=== PATIENT | female | born 1940 | race Caucasian/White ===

== ENCOUNTER 2021-03-28 10:49 | Emergency (ER) | payer MEDICARE, SELFPAY ==
--- NOTE | ~2021-03-28 | XR_ITS ---
XR chest 2V 03/28/2021 11:23 Indication: Chest tightness. Numbness in fingers. Procedure: PA and lateral views of the chest Comparison: No prior studies for comparison. Findings: Heart size normal. Prominent right nipple shadow. The lungs are hyperinflated which is cons istent with, but not diagnostic of chronic obstructive pulmonary disease. There is bibasilar atelecta sis. No significant effusion. Biapical pleural thickening. There is right shoulder arthroplasty. Impression: 1: Bibasilar atelectasis. Reviewed, dictated and finalized at location A. Impression: 1: Bibasilar atelectasis.
[2021-03-28 10:59] VITALS: BP 177/75; PULSE 68; RESP 16; TEMP 36.7; O2SAT 100
--- NOTE | 2021-03-28 10:59 | ECG_ITS ---
Measurements Intervals [place] Rate: 66 P: 68 [place]: 140 QRS: 60 QRSD: 69 T: 54 QT: 405 QTc: 425 Interpretive Statements SINUS RHYTHM POSSIBLE LEFT ATRIAL ENLARGEMENT BASELINE ARTIFACT- V5 BORDERLINE ECG Electronically Signed On 03-28-2021 16:34:50 CDT by Javy Macias D.O.
--- NOTE | 2021-03-28 11:04 | ED.CHESTPAIN ---
HPI - Chest Pain General Chief Complaint: Chest Pain Stated Complaint: Chest tightness Time Seen by Provider: 03/28/21 11:04 History of Present Illness HPI narrative: 81 yo female presents to the ED for chest pain. She reports that she has had nearly continuous mild pressure under her left breast for about the past 2 weeks. This is associated with tingling in the bilateral hands. It is worse when sitting. No change with exertion. She reports that she has been under a lot of stress recently and feels that is the most likely reason for her pain. No SOB, weakness, fever, cough, confusion. Related Data Allergies Allergy/AdvReac Type Severity Reaction Status Date / Time No Known Allergies Allergy Verified 03/28/21 11:05 Review of Systems Review of Systems: All systems reviewed & are unremarkable except as noted in HPI and below Constitutional: Constitutional: Denies chills, Denies fever(s) and Denies weakness ENT: Reports system reviewed and no additional complaints, except as documented Cardiovascular: Cardiovascular: Reports chest pain Respiratory: Respiratory: Reports dyspnea Gastrointestinal: Gastrointestinal: Denies abdominal pain, Denies nausea and Denies vomiting Genitourinary: Genitourinary: Denies hematuria and Denies dysuria Neurologic: Denies confusion, Reports numbness and Denies weakness Psychiatric: Psychiatric: Reports anxiety [facility] [place] Past Medical History Medical History (Updated 03/28/21 @ 12:30 by Ra Zamudio MD) Hypothyroidism Social History Social History (Updated 03/28/21 @ 11:43 by Ra Zamudio MD) Living arrangements: assisted living Exam Const: General: healthy appearing, no acute distress and alert Nutritional Appearance: thin Orientation/consciousness: patient oriented x3 HENMT: Head: normal to inspection Neck: Neck: normal visual inspection Resp: Effort & Inspection: normal respiratory effort Auscultation: clear to auscultation bilaterally Cardio: Rate: regular rate Rhythm: regular rhythm GI: GI Palp: Yes Soft to palpation and No Tenderness to palpation present (GI) Skin: General skin exam: normal color Neuro: General: patient oriented x3, moves all extremities, no focal motor deficits and CN's II-XI intact bilaterally Speech: normal speech Gait exam (Neuro): Normal gait present Extrem: General: normal to inspection and no edema Psych: Appearance: well kempt Mental Status: mental status grossly normal Affect: Sad affect present Attitude: cooperative Course Vital Signs Vital signs: Vital Signs Temperature 36.7 C 03/28/21 10:59 Pulse Rate 68 03/28/21 10:59 Respiratory Rate 16 03/28/21 10:59 Blood Pressure 177/75 H 03/28/21 10:59 Pulse Oximetry 100 03/28/21 10:59 Temperature 36.7 C 03/28/21 10:59 Pulse Rate 86 03/28/21 12:47 Respiratory Rate 16 03/28/21 10:59 Blood Pressure 148/73 H 03/28/21 12:47 Pulse Oximetry 98 03/28/21 12:47 MDM - Chest Pain MDM Narrative Medical decision making narrative: Pain is atyipical. Improved with GI cocktail. Heart score 3. She plans to followup with PCP in the near future. Differential Diagnosis Differential diagnosis: Likely unstable angina pectoris, atypical chest pain, st elevation myocardial infarction, chest pain and other (GERD) Medical Records Data Attestation: I reviewed the patient's medical records. Lab Data Attestation: I reviewed the patient's lab results. Result diagrams: 03/28/21 11:06 03/28/21 11:06 Labs: Lab Results 03/28/21 03/28/21 03/28/21 Range/Units 11:06 11:06 11:06 WBC 5.2 (4.5-10.0) K/mm3 RBC 4.44 (4.2-5.4) M/mm3 Hgb 13.1 (12.0-15.0) g/dL Hct 39.5 (37.0-47.0) % MCV 89.0 (80-100) fl MCH 29.5 (26-34) pg MCHC 33.2 (32-36) g/dl RDW 12.8 (11.5-14.5) % Plt Count 222 (150-375) k/mm3 MPV 8.4 (7.4-10.4) fl Immature Gran % (Auto) 0.2 (0-0.5) % Neut % (Auto) 54.7
[2021-03-28 11:14] LABS: Basophils Percent Auto 0.8 % (0.2-1.2); Eosinophils Absolute Auto 0.1 K/mm3 (0-0.3); Eosinophils Percent Auto 1.5 % (0-4.4); Hematocrit 39.5 % (37.0-47.0); Hemoglobin 13.1 g/dL (12.0-15.0); Immature Granulocyte Absolute 0.01 K/mm3 (0.00-0.031); Immature Granulocyte Percent A 0.2 % (0-0.5); Lymphocytes Absolute Auto 1.55 K/mm3 (0.9-3.2); Mean Corpuscular HGB Conc 33.2 g/dl (32-36); Mean Corpuscular Hemoglobin 29.5 pg (26-34); Mean Platelet Volume 8.4 fl (7.4-10.4); Monocytes Absolute Auto 0.7 K/mm3 (0.1-0.6); Monocytes Percent Auto 12.8 % (2.6-8.5); Neutrophils Absolute Auto 2.8 K/mm3 (1.3-6.7); Neutrophils Percent Auto 54.7 % (45.5-73.1); Platelet Count Result 222 k/mm3 (150-375); Red Blood Count 4.44 M/mm3 (4.2-5.4); Red Cell Distribution Width 12.8 % (11.5-14.5); White Blood Count 5.2 K/mm3 (4.5-10.0)
[2021-03-28] MEDS: ASPIRIN 81 MG CHEWABLE TABLET 324 MG PO (11:15)
[2021-03-28 11:24] LABS: Anion Gap 5 mmol/L (8-16); Blood Urea Nitrogen 8 mg/dL (7-17); Calcium 9.4 mg/dL (8.4-10.2); Carbon Dioxide 30 mmol/L (22-30); Chloride 95 mmol/L (98-107); Estimated CRCL calculation 44 ml/min; Estimated Glomerular Filt Rate > 60; Glucose 105 mg/dL (65-105); Potassium 4.1 mmol/L (3.4-5.0); Sodium 130 mmol/L (137-145)
[2021-03-28 11:26] LABS: INR 0.9; Prothrombin Time 12.3 Seconds (11.1-14.7)
[2021-03-28 11:36] LABS: Troponin I < 0.012 ng/mL (0.000-0.034)
[2021-03-28] MEDS: SODIUM CHLORIDE 0.9% IV 500 ML 999 ML IV CONT (11:42)
[2021-03-28 12:00] VITALS: BP 158/68; PULSE 69; O2SAT 98
[2021-03-28 12:47] VITALS: BP 148/73; PULSE 86; O2SAT 98
== END 2021-03-28 12:48 | disposition home or self-care (01) ==
PROVIDERS: Emergency Provider Emergency Medicine
DX: R07.89 Other chest pain (principal); E03.9 Hypothyroidism, unspecified; R94.31 Abnormal electrocardiogram [ECG] [EKG]; R91.8 Other nonspecific abnormal finding of lung field
CPT/HCPCS: 36415; 71046; 80048; 84484; 85025; 85610; 85730; 93005; 96360; 99284; A9270; J7040

== ENCOUNTER 2021-04-20 11:57 | Emergency (ER) | payer MEDICARE, SELFPAY ==
--- NOTE | ~2021-04-20 | CT_ITS ---
EXAMINATION: CT brain wo con EXAM DATE: 04/20/2021 13:28 INDICATION: Generalized Headache, HTN. TECHNIQUE: Spiral CT of the head was performed without contrast. Axial, coronal and sagittal images were reviewed. The dose-length product (DLP) for this examination was 605.33 mGy-cm. The exposure w as tailored according to patient size, and iterative reconstruction (ASIR) was used as additional dos e reduction technique. There is no prior study for comparison. FINDINGS: There is no acute intraparenchymal hemorrhage. No evidence of intraparenchymal brain mass lesion. No evidence of acute infarction. Please note that initial head CT has limited sensitivity f or small or acute infarctions. There is mild periventricular and subcortical hypodensity, nonspecific but probably related to small vessel ischemic disease. There is mild prominence of the sulci and v entricles related to cerebral atrophy. There is intracranial carotid arteriosclerosis. There are n o extra-axial collections. There is no mass effect or midline shift. Patient has had bilateral ocul ar lens surgery. Soft tissue is unremarkable. The visualized sinuses and mastoid air cells are well aerated. IMPRESSION: 1. No acute intracranial findings. 2. Chronic age related findings. Reviewed, dictated and finalized at location B.
[2021-04-20 12:02] VITALS: BP 178/87; PULSE 79; RESP 18; TEMP 36.6; O2SAT 98
--- NOTE | 2021-04-20 12:47 | ECG_ITS ---
Measurements Intervals [place] Rate: 64 P: 65 [place]: 151 QRS: 54 QRSD: 74 T: 55 QT: 415 QTc: 430 Interpretive Statements SINUS RHYTHM INCOMPLETE RIGHT BUNDLE BRANCH BLOCK BASELINE ARTIFACT- I, III, AVR, AVL BORDERLINE ECG Electronically Signed On 04-20-2021 13:26:14 CDT by Javy Macias D.O.
--- NOTE | 2021-04-20 12:47 | ED.GENADULT ---
HPI - General Adult General Chief complaint: Unspecified Stated complaint: multiple sx Time Seen by Provider: 04/20/21 12:10 Source: patient Mode of arrival: ambulatory Limitations: no limitations History of Present Illness HPI narrative: Patient is an 81-year-old female complaining of elevated blood pressure at home, 180s over 90s, accompanied by a mild frontal headache that started today. Patient states that she called her PCP for an appointment but was told to go to the emergency room. Patient denies any speech or visual disturbance, focal weakness or numbness, unsteady gait, chest pain, shortness of breath, abdominal pain, nausea, vomiting, fever or chills. Related Data Allergies Allergy/AdvReac Type Severity Reaction Status Date / Time No Known Allergies Allergy Verified 04/20/21 12:09 Review of Systems Review of Systems: All systems reviewed & are unremarkable except as noted in HPI and below Constitutional: Constitutional: Denies body ache(s), Denies chills, Denies excessive sweating, Denies fatigue, Denies fever(s), Denies headache(s), Denies lethargy, Denies malaise, Denies weakness and Denies weight loss Eyes: Eyes: Denies blurry vision, Denies change in vision and Denies loss of vision ENT: Denies dizziness, Denies ear discharge, Denies headache(s), Denies lip swelling, Denies epistaxis, Denies nasal congestion, Denies neck pain, Denies throat swelling and Denies tongue swelling Cardiovascular: Cardiovascular: Denies chest pain, Denies chest pain at rest, Denies chest pain with activity, Denies diaphoresis, Denies rapid heart rate, Denies edema, Denies irregular heart rhythm, Denies lightheadedness, Denies palpitations, Denies dyspnea and Denies dyspnea on exertion Respiratory: Respiratory: Denies chest congestion, Denies cough, Denies hemoptysis, Denies dyspnea and Denies dyspnea on exertion Gastrointestinal: Gastrointestinal: Denies abdominal pain, Denies melena, Denies hematochezia, Denies diarrhea, Denies nausea, Denies vomiting and Denies hematemesis Musculoskeletal: Musculoskeletal: Denies abnormal gait, Denies deformity, Denies joint swelling, Denies limited range of motion, Denies neck pain and Denies numbness Neurologic: Denies Abnormal speech present, Denies abnormal gait, Denies confusion, Denies dizziness, Denies focal weakness, Denies loss of vision, Denies numbness, Denies Other visual disturbances, Denies Sensory deficit (Neuro) and Denies weakness Psychiatric: Psychiatric: Denies confusion, Denies depression, Denies auditory hallucinations, Denies homicidal ideation and Denies suicidal ideation Endocrine: Endocrine: Denies cold intolerance, Denies excessive sweating, Denies fatigue, Denies heat intolerance and Denies palpitations Hematologic/Lymphatic: Hematologic/Lymphatic: Denies easy bleeding and Denies easy bruising Allergic/Immunologic: Allergic/Immunologic: Denies lip swelling, Denies throat swelling and Denies tongue swelling [facility] Past Medical History Medical History (Updated 04/20/21 @ 14:08 by João Haider MD) Hypothyroidism Comments Past medical history: Hyperlipidemia, no history of hypertension Family history: Diabetes and hypertension Social history: Non-smoker no EtOH use, lives at home Exam Const: General: cooperative, healthy appearing, comfortable, no acute distress, well developed, alert and awake; No confusion Orientation/consciousness: oriented to person, oriented to place, oriented to time, patient oriented x3 and No confusion Limitations: no limitations HENMT: Head: normal to inspection, normocephalic and atraumatic Ears: hearing grossly normal bilaterally, TM normal on the right and TM normal on the left General nose exam: Normal external nose present, Normal nares present and No nasal discharge present Face and sinus: normal facial exam Mouth: Yes Normal oral and palatal mucosa present, Yes lip normal, Yes tongue normal and Yes oropharynx normal Throat: posteri
[2021-04-20 13:19] LABS: Basophils Percent Auto 0.6 % (0.2-1.2); Eosinophils Percent Auto 0.2 % (0-4.4); Hematocrit 35.1 % (37.0-47.0); Hemoglobin 11.9 g/dL (12.0-15.0); Immature Granulocyte Absolute 0.02 K/mm3 (0.00-0.031); Immature Granulocyte Percent A 0.4 % (0-0.5); Lymphocytes Absolute Auto 0.92 K/mm3 (0.9-3.2); Lymphocytes Percent Auto 18.9 % (18.3-44.2); Mean Corpuscular HGB Conc 33.9 g/dl (32-36); Mean Corpuscular Hemoglobin 29.7 pg (26-34); Mean Corpuscular Volume 87.5 fl (80-100); Mean Platelet Volume 7.9 fl (7.4-10.4); Monocytes Absolute Auto 0.5 K/mm3 (0.1-0.6); Monocytes Percent Auto 10.1 % (2.6-8.5); Neutrophils Absolute Auto 3.4 K/mm3 (1.3-6.7); Neutrophils Percent Auto 69.8 % (45.5-73.1); Platelet Count Result 218 k/mm3 (150-375); Red Blood Count 4.01 M/mm3 (4.2-5.4); Red Cell Distribution Width 12.8 % (11.5-14.5); White Blood Count 4.9 K/mm3 (4.5-10.0)
[2021-04-20 13:29] LABS: Alanine Aminotransferase 20 U/L (4-35); Albumin Level 3.9 g/dL (3.5-5.1); Alkaline Phosphatase 50 U/L (38-126); Anion Gap 8 mmol/L (8-16); Aspartate Amino Transferase 36 U/L (14-36); Bilirubin,Total 0.8 mg/dL (0.2-1.3); Blood Urea Nitrogen 7 mg/dL (7-17); Calcium 9.3 mg/dL (8.4-10.2); Carbon Dioxide 28 mmol/L (22-30); Chloride 93 mmol/L (98-107); Estimated CRCL calculation 51 ml/min; Estimated Glomerular Filt Rate > 60; Glucose 132 mg/dL (65-105); Potassium 3.9 mmol/L (3.4-5.0); Sodium 129 mmol/L (137-145)
[2021-04-20 13:34] VITALS: BP 154/74; PULSE 62; RESP 19; O2SAT 99
[2021-04-20 13:43] LABS: Troponin I < 0.012 ng/mL (0.000-0.034)
[2021-04-20 14:21] VITALS: BP 149/75; PULSE 69; RESP 16; O2SAT 100
== END 2021-04-20 14:24 | disposition home or self-care (01) ==
PROVIDERS: Emergency Provider Emergency Medicine; PCP Family Medicine
DX: R51.9 Headache, unspecified (principal); R03.0 Elevated blood-pressure reading, without diagnosis of hypertension; E03.9 Hypothyroidism, unspecified
CPT/HCPCS: 36415; 70450; 80053; 84484; 85025; 93005; 99284

== ENCOUNTER 2021-04-25 23:51 | Emergency (ER) | payer MEDICARE, SELFPAY ==
[2021-04-25 23:53] VITALS: BP 150/88; PULSE 81; RESP 16; TEMP 36.6; O2SAT 99
--- NOTE | 2021-04-25 23:56 | PC.NURSE ---
pt states maybe i dont have to be here. my blood pressure is going down. this rn explains to pt that she is welcome to be seen by a physician for her symptoms. pt seems unsure, denies getting any blood drawn at this time. pt sitting in WR at this time on the phone. states she will let me know if she decides to leave.
--- NOTE | 2021-04-26 00:20 | PC.NURSE ---
pt requests repeat vitals. bp 145/79, 75HR, 99% on RA. pt states she no longer wants to be seen by a doctor. pt instructed on risks of leaving, instructed if she has worsening symptoms that she can always come back to be seen. pt mbulated out of facility w/ no difficulties.
== END 2021-04-26 00:20 | disposition left against medical advice (07) ==
PROVIDERS: PCP Family Medicine
DX: I10 Essential (primary) hypertension (principal)
CPT/HCPCS: 99199

== ENCOUNTER 2021-05-11 15:19 | Outpatient (CLI) | payer MEDICARE, SELFPAY ==
[2021-05-11 15:57] LABS: Anion Gap 6 mmol/L (8-16); Blood Urea Nitrogen 9 mg/dL (7-17); Calcium 9.6 mg/dL (8.4-10.2); Carbon Dioxide 30 mmol/L (22-30); Chloride 94 mmol/L (98-107); Estimated Glomerular Filt Rate > 60; Glucose 98 mg/dL (65-105); Potassium 4.2 mmol/L (3.4-5.0); Sodium 130 mmol/L (137-145)
== END 2021-05-11 15:20 | disposition home or self-care (01) ==
PROVIDERS: PCP Family Medicine; Visit Provider Family Medicine
DX: E87.1 Hypo-osmolality and hyponatremia (principal)
CPT/HCPCS: 36415; 80048

== ENCOUNTER → 2021-06-24 08:13 | Outpatient (CLI) | payer MEDICARE, SELFPAY ==
--- NOTE | ~2021-06-24 | CT_ITS ---
EXAMINATION: CT soft tissue neck w con DATE: 06/24/2021 08:40 INDICATION: Chronic sore throat. Facial pain and swelling. TECHNIQUE: Computed tomography (CT) of the neck was performed with 75 mL Omnipaque-350 intravenous co ntrast. Automated exposure control and iterative reconstruction technique were employed. The dose-kelly gth product was 329.15 mGy-cm. COMPARISON: None FINDINGS: There is symmetric scarring at the lung apices. There are likely changes of ocular lens rep lacement surgeries. There are no pathologically enlarged lymph nodes. There is mild plaque in proxima l right internal carotid artery with 0% stenosis relative to normal distal artery lumen diameter. The pharyngeal mucosal space and larynx are unremarkable. There is severe cervical spondylosis. There ar e periapical lucencies around bilateral maxillary teeth. There is mild mucosal thickening in the para nasal sinuses. IMPRESSION: 1. Dental disease. Reviewed, dictated and finalized at location A. IMPRESSION: 1. Dental disease.
[2021-06-24 08:30] LABS: Estimated Glomerular Filt Rate > 60
== END ==
PROVIDERS: PCP Family Medicine; Visit Provider Otolaryngology
DX: J31.2 Chronic pharyngitis (principal); K08.9 Disorder of teeth and supporting structures, unspecified
CPT/HCPCS: 70491; Q9967

== ENCOUNTER 2022-01-14 10:48 | Emergency (ER) | payer MEDICARE, SELFPAY ==
--- NOTE | ~2022-01-14 | XR_ITS ---
XR chest 2V 01/14/2022 11:14 Indication: Chest pain Procedure: 2 view chest Comparison: 03/28/2021 Findings: Heart size is normal. There is biapical pleural thickening/scarring. There is posterior bib asilar atelectasis/scarring. The lungs are hyperinflated which is consistent with, but not diagnostic of chronic obstructive pulmonary disease. No focal pneumonia or pneumothorax. Impression: 1: Apical and bibasilar atelectasis/scarring. No significant interval change. Reviewed, dictated and finalized at location B. 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 No significant interval change.
[2022-01-14 10:52] VITALS: BP 162/75; PULSE 89; RESP 25; TEMP 36.6; O2SAT 95
--- NOTE | 2022-01-14 11:03 | ECG_ITS ---
Measurements Intervals [place] Rate: 86 P: 80 [place]: 139 QRS: 64 QRSD: 78 T: 66 QT: 356 QTc: 426 Interpretive Statements SINUS RHYTHM POSSIBLE LEFT ATRIAL ENLARGEMENT BASELINE ARTIFACT- I, II, III, AVR, AVL, AVF, V3-V6 BORDERLINE ECG Electronically Signed On 01-14-2022 14:40:41 [employer] by Javy Macias D.O.
[2022-01-14 11:17] LABS: Basophils Percent Auto 0.7 % (0.2-1.2); Eosinophils Percent Auto 0.7 % (0-4.4); Hematocrit 39.3 % (37.0-47.0); Immature Granulocyte Absolute 0.01 K/mm3 (0.00-0.031); Immature Granulocyte Percent A 0.2 % (0-0.5); Lymphocytes Percent Auto 18.6 % (18.3-44.2); Mean Corpuscular HGB Conc 33.1 g/dl (32-36); Mean Corpuscular Hemoglobin 30.2 pg (26-34); Mean Corpuscular Volume 91.2 fl (80-100); Mean Platelet Volume 8.1 fl (7.4-10.4); Monocytes Absolute Auto 0.5 K/mm3 (0.1-0.6); Monocytes Percent Auto 8.3 % (2.6-8.5); Neutrophils Absolute Auto 4.2 K/mm3 (1.3-6.7); Neutrophils Percent Auto 71.5 % (45.5-73.1); Platelet Count Result 225 k/mm3 (150-375); Red Blood Count 4.31 M/mm3 (4.2-5.4); Red Cell Distribution Width 13.2 % (11.5-14.5); White Blood Count 5.9 K/mm3 (4.5-10.0)
[2022-01-14] MEDS: ASPIRIN 81 MG CHEWABLE TABLET 324 MG PO (11:21)
--- NOTE | 2022-01-14 11:29 | ED.CHESTPAIN ---
HPI - Chest Pain General Chief Complaint: Chest Pain Stated Complaint: chest pain Time Seen by Provider: 01/14/22 10:53 Source: patient and RN notes reviewed Mode of arrival: ambulatory Limitations: other (poor historian) History of Present Illness HPI narrative: This is an 81 year old female who presents for evaluation of chest tightness. Patient has been having constant midsternal chest tightness since yesterday. She denies associated shortness of breath, cough or fever. She is complaining of nausea after taking aspirin in ER. She denies diarrhea. She told saff she is having jaw pain but she states this jaw pain has been present constantly for 2 months without exacerbating factors. She denies any exacerbating factors for her chest pain as well. She was given aspirin 324 mg PO in ER as part of chest pain protocol. Related Data Allergies Allergy/AdvReac Type Severity Reaction Status Date / Time No Known Allergies Allergy Verified 01/14/22 10:56 Review of Systems Review of Systems: All systems reviewed & are unremarkable except as noted in HPI and below Neurologic: Reports numbness (chronic paresthesia in fingers for months) [facility] Past Medical History Medical History (Updated 01/14/22 @ 15:13 by Samantha Larios MD) Hypothyroidism Social History Social History (Updated 01/14/22 @ 11:33 by Samantha Larios MD) Smoking status: Never smoker Alcohol intake: never Substance use: never Exam Narrative: GENERAL: Well-appearing, well-nourished, and in no acute distress. HEAD: Normocephalic, atraumatic EYES: PERRLA and EOMI, conjunctiva clear without discharge THROAT:Mucous membranes moist, Oropharynx normal without erythema, exudate, peritonsillar swelling or fluctuance NECK: Supple, without lymphadenopathy or mass RESPIRATORY: No respiratory distress, Airway patent, Respirations non-labored, Clear to auscultation without rales, rhonchi or wheeze HEART: Regular rate and rhythm. No murmur heard. Normal peripheral pulses. ABDOMEN: Soft, nontender, nondistended, normal active bowel sounds. No masses. No rebound or guarding, No organomegaly. EXTREMITIES: No edema, normal strength with full range of motion. SKIN: Warm, dry, normal color without rash NEURO: Alert and oriented x3. CN 2-12 grossly intact. No focal deficits. PSYCH: Normal mood and affect. Course Reevaluation(s) Reevaluation #1: Patient states her chest pain has resolved. Her EKG is borderline, no significant changes. SHe is heart score 3-4. I discussed with patient observation or discharge. PAtient does not want to be admitted. I spoke with Sayra Urrutia on for heart care group. She agrees patient can follow up as outpatient for stress test. I discussed with patient return precautions. She has follow up with PCP on . Date: 01/14/22 Time: 15:07 Vital Signs Vital signs: Vital Signs Temperature 97.9 F 01/14/22 10:52 Pulse Rate 89 01/14/22 10:52 Respiratory Rate 25 H 01/14/22 10:52 Blood Pressure 162/75 H 01/14/22 10:52 Pulse Oximetry 95 01/14/22 10:52 Temperature 97.9 F 01/14/22 10:52 Pulse Rate 66 01/14/22 15:21 Respiratory Rate 18 01/14/22 15:21 Blood Pressure 141/73 H 01/14/22 15:21 Pulse Oximetry 100 01/14/22 15:21 MDM - Chest Pain Lab Data Attestation: I reviewed the patient's lab results. Result diagrams: 01/14/22 11:06 01/14/22 11:32 Labs: Lab Results 01/14/22 01/14/22 01/14/22 Range/Units 11:06 11:06 11:06 WBC 5.9 (4.5-10.0) K/mm3 RBC 4.31 (4.2-5.4) M/mm3 Hgb 13.0 (12.0-15.0) g/dL Hct 39.3 (37.0-47.0) % MCV 91.2 (80-100) fl MCH 30.2 (26-34) pg MCHC 33.1 (32-36) g/dl RDW 13.2 (11.5-14.5) % Plt Count 225 (150-375) k/mm3 MPV 8.1 (7.4-10.4) fl Immature Gran % (Auto) 0.2 (0-0.5) % Neut % (Auto) 71.5 (45.5-73.1) % Lymph % (Auto) 18.6 (18.3-44.2) % Walsh % (Auto) 8.3 (2.6-8
[2022-01-14 11:39] LABS: INR 0.9; Prothrombin Time 11.8 Seconds (11.1-14.7)
[2022-01-14 11:40] LABS: Partial Thromboplastin Time 26.9 SECONDS (22.3-36.8)
[2022-01-14 12:13] LABS: Alanine Aminotransferase 18 U/L (4-35); Albumin Level 4.1 g/dL (3.5-5.1); Alkaline Phosphatase 55 U/L (38-126); Anion Gap 7 mmol/L (8-16); Aspartate Amino Transferase 29 U/L (14-36); Bilirubin,Total 1.2 mg/dL (0.2-1.3); Blood Urea Nitrogen 14 mg/dL (7-17); Calcium 9.3 mg/dL (8.4-10.2); Carbon Dioxide 29 mmol/L (22-30); Chloride 95 mmol/L (98-107); Estimated CRCL calculation 47 ml/min; Estimated Glomerular Filt Rate > 60; Glucose 155 mg/dL (65-110); Lipase 106 U/L (23-300); Potassium 4.1 mmol/L (3.4-5.0); Sodium 131 mmol/L (137-145)
[2022-01-14 12:24] LABS: Troponin I < 0.012 ng/mL (0.000-0.034)
[2022-01-14 12:28] VITALS: BP 148/70; PULSE 68; RESP 18; O2SAT 100
[2022-01-14 13:47] LABS: D Dimer < 0.22 ug/mL (<0.48)
[2022-01-14 14:01] VITALS: BP 147/87; PULSE 74; RESP 16; O2SAT 100
[2022-01-14] MEDS: NITROGLYCERIN SL 0.4 MG TABLET SUBLINGUAL (14:05)
[2022-01-14 14:09] LABS: Troponin I < 0.012 ng/mL (0.000-0.034)
[2022-01-14 15:21] VITALS: BP 141/73; PULSE 66; RESP 18; O2SAT 100
== END 2022-01-14 15:33 | disposition home or self-care (01) ==
PROVIDERS: Emergency Provider General Practice; PCP Family Medicine
DX: R07.89 Other chest pain (principal); E03.9 Hypothyroidism, unspecified; R94.31 Abnormal electrocardiogram [ECG] [EKG]
CPT/HCPCS: 36415; 71046; 80053; 83690; 84484; 85025; 85380; 85610; 85730; 93005; 99284; A9270

== ENCOUNTER 2022-02-11 08:29 | Outpatient (CLI) | payer MEDICARE, SELFPAY ==
[2022-02-11 09:05] LABS: Anion Gap 3 mmol/L (8-16); Blood Urea Nitrogen 10 mg/dL (7-17); Calcium 8.8 mg/dL (8.4-10.2); Carbon Dioxide 33 mmol/L (22-30); Chloride 96 mmol/L (98-107); Estimated Glomerular Filt Rate > 60; Glucose 96 mg/dL (65-110); Potassium 4.4 mmol/L (3.4-5.0); Sodium 132 mmol/L (137-145)
== END 2022-02-11 08:30 | disposition home or self-care (01) ==
PROVIDERS: PCP Family Medicine; Visit Provider Family Medicine
DX: R79.89 Other specified abnormal findings of blood chemistry (principal)
CPT/HCPCS: 36415; 80048

== ENCOUNTER → 2022-06-07 12:47 | Outpatient (CLI) | payer MEDICARE, SELFPAY ==
--- NOTE | ~2022-06-07 | US_ITS ---
EXAMINATION: US pelvic complete w TV DATE: 06/07/2022 13:13 INDICATION: Pelvic bloating Comparison:No prior studies for comparison. TECHNIQUE: Multiple transabdominal and endovaginal sonographic images of the pelvis performed. FINDINGS: The uterus and ovaries are not visualized, consistent with prior hysterectomy. No abnormal masses or fluid collections. There is no free fluid in the pelvis. There are no abnormal masses seen on either side. IMPRESSION: 1. Unremarkable pelvic ultrasound post hysterectomy. Reviewed, dictated and finalized at location A.
== END ==
PROVIDERS: PCP Internal Medicine; Visit Provider Internal Medicine
DX: R14.0 Abdominal distension (gaseous) (principal)
CPT/HCPCS: 76830; 76856

== ENCOUNTER 2022-07-20 07:17 | Outpatient (CLI) | payer MEDICARE, SELFPAY ==
[2022-07-20 08:11] LABS: Alanine Aminotransferase 17 U/L (6-35); Albumin Level 4.3 g/dL (3.5-5.1); Alkaline Phosphatase 56 U/L (38-126); Anion Gap 1 mmol/L (8-16); Aspartate Amino Transferase 31 U/L (14-36); Bilirubin,Total 1.1 mg/dL (0.2-1.3); Blood Urea Nitrogen 10 mg/dL (7-17); Calcium 8.7 mg/dL (8.4-10.2); Carbon Dioxide 31 mmol/L (22-30); Chloride 96 mmol/L (98-107); Cholesterol 187 mg/dL (0-200); Estimated Glomerular Filt Rate > 60; Glucose 96 mg/dL (65-110); HDL Direct 83 mg/dL; Potassium 4.4 mmol/L (3.4-5.0); Sodium 128 mmol/L (137-145); Triglycerides 76 mg/dL (<150)
[2022-07-20 08:17] LABS: Basophils Percent Auto 0.9 % (0.2-1.2); Eosinophils Absolute Auto 0.1 K/mm3 (0-0.3); Eosinophils Percent Auto 1.7 % (0-4.4); Hematocrit 38.7 % (37.0-47.0); Hemoglobin 12.7 g/dL (12.0-15.0); Immature Granulocyte Absolute 0.01 K/mm3 (0.00-0.031); Immature Granulocyte Percent A 0.3 % (0-0.5); Lymphocytes Absolute Auto 1.06 K/mm3 (0.9-3.2); Lymphocytes Percent Auto 30.1 % (18.3-44.2); Mean Corpuscular HGB Conc 32.8 g/dl (32-36); Mean Corpuscular Hemoglobin 29.6 pg (26-34); Mean Corpuscular Volume 90.2 fl (80-100); Mean Platelet Volume 8.1 fl (7.4-10.4); Monocytes Absolute Auto 0.4 K/mm3 (0.1-0.6); Monocytes Percent Auto 11.9 % (2.6-8.5); Neutrophils Absolute Auto 1.9 K/mm3 (1.3-6.7); Neutrophils Percent Auto 55.1 % (45.5-73.1); Platelet Count Result 238 k/mm3 (150-375); Red Blood Count 4.29 M/mm3 (4.2-5.4); Red Cell Distribution Width 13.2 % (11.5-14.5); White Blood Count 3.5 K/mm3 (4.5-10.0)
[2022-07-20 08:22] LABS: LDL Cholesterol Direct 65 mg/dL
[2022-07-20 09:30] LABS: Erythrocyte Sedimentation Rate 12 mm/hr (0-20)
== END 2022-07-20 07:18 | disposition home or self-care (01) ==
PROVIDERS: PCP Internal Medicine; Referring Provider Internal Medicine; Visit Provider Internal Medicine
DX: E78.5 Hyperlipidemia, unspecified (principal); E03.9 Hypothyroidism, unspecified; R53.82 Chronic fatigue, unspecified; R51.9 Headache, unspecified
CPT/HCPCS: 36415; 80053; 80061; 84443; 85025; 85652

== ENCOUNTER 2022-07-22 09:43 | Outpatient (CLI) | payer MEDICARE, SELFPAY ==
--- NOTE | ~2022-07-22 | CT_ITS ---
EXAMINATION: CT brain wo con DATE: 07/22/2022 10:12 INDICATION: Fall. Headache. Facial injury. TECHNIQUE: Computed tomography (CT) of the head was performed without intravenous contrast. The mA wa s adjusted according to patient size. Iterative reconstruction technique was employed. Exam dose: 60 5.33 mGy-cm total exam DLP. COMPARISON: None FINDINGS: Bilateral vertebral artery and carotid siphon internal carotid artery calcifications. There is nonspecific diminished attenuation of the cerebral white matter, likely due to chronic small vess el ischemic changes. No intracranial mass lesion or hemorrhage or cerebrovascular accident is detected. No midline shift o r mass effect effect. No subdural or epidural hematoma. No fracture or bone destruction of the cranial vault. The mastoid air cells and included paranasal si nuses are normally developed and aerated. IMPRESSION: Cerebral atherosclerosis and chronic small vessel ischemic changes of the cerebral white matter No acute intracranial finding or skull fracture Reviewed, dictated and finalized at Location A. Reviewed, dictated and finalized at location B.
--- NOTE | ~2022-07-22 | CT_ITS ---
EXAMINATION: CT facial bones wo con DATE: 07/22/2022 10:12 INDICATION: Fall. Facial injury. TECHNIQUE: Computed tomography (CT) of the facial bones and maxillofacial region was performed withou t intravenous contrast. Automated exposure control and iterative reconstruction technique were employ ed. Exam dose: 274.28 mGy-cm total exam DLP. COMPARISON: None. FINDINGS: The nasal bones, anterior maxillary spine, frontozygomatic sutures, orbital rims and garcia, zygomatic arches and maxillary bones are intact. Small mucus retention cyst along the lower medial wall of the right maxillary sinus. The paranasal si nuses and mastoid air cells are otherwise unremarkable. Degenerative change at the right temporomandibular joint. No mandibular fracture or dislocation or parker ne destruction. IMPRESSION: No facial fracture Reviewed, dictated and finalized at Location A. EXAMINATION: CT facial bones wo con Reviewed, dictated and finalized at location B. IMPRESSION: No facial fracture
== END 2022-07-22 09:44 | disposition home or self-care (01) ==
LOC: ANHIMG 09:46
PROVIDERS: PCP Internal Medicine; Visit Provider Internal Medicine
DX: S09.93XA Unspecified injury of face, initial encounter (principal); X58.XXXA Exposure to other specified factors, initial encounter; R51.9 Headache, unspecified; I67.2 Cerebral atherosclerosis
CPT/HCPCS: 70450; 70486

== ENCOUNTER 2022-07-27 07:14 | Outpatient (CLI) | payer MEDICARE, SELFPAY ==
--- NOTE | ~2022-07-27 | US_ITS ---
EXAMINATION: US carotid duplex BI DATE: 07/27/2022 08:38 INDICATION: Carotid atherosclerosis. TECHNIQUE: Grayscale, color Doppler, and pulsed Doppler images of the cervical carotid arteries were obtained. The degree of vessel stenosis is placed in one of the following categories: normal, <50%, 5 0-69%, >=70% but less than near-occlusion, near-occlusion, or total occlusion. Note that percent sten osis relative to normal distal artery lumen diameter is indirectly measured from velocity measurement s as described by Ra, et al. Radiology 2003; 229:340-346. COMPARISON: None. FINDINGS: RIGHT: The right common carotid artery (CCA) peak systolic velocity (PSV) is 64 cm/s. The right internal car otid artery (ICA) PSV is 55 cm/s. The right ICA end-diastolic velocity (EDV) is 14 cm/s. The right IC A/CCA PSV ratio is 1.4. Grayscale and color Doppler images yield an estimate of <50% diameter reducti on from plaque in the ICA. The external carotid artery (ECA) PSV is 53 cm/s. There is antegrade flow in the right vertebral artery. LEFT: The left CCA PSV is 96 cm/s. The left ICA PSV is 64 cm/s. The left ICA EDV is 16 cm/s. The left ICA/C CA PSV ratio is 0.9. Grayscale and color Doppler images yield an estimate of <50% diameter reduction from plaque in the ICA. The ECA PSV is 59 cm/s. There is antegrade flow in the left vertebral artery. IMPRESSION: 1. <50% stenosis in the right internal carotid artery. 2. <50% stenosis in the left internal carotid artery. Reviewed, dictated and finalized at location A.
[2022-07-27 08:28] LABS: Anion Gap 7 mmol/L (8-16); Blood Urea Nitrogen 9 mg/dL (7-17); Calcium 8.9 mg/dL (8.4-10.2); Carbon Dioxide 29 mmol/L (22-30); Chloride 99 mmol/L (98-107); Creatine Kinase 77 U/L (30-135); Estimated Glomerular Filt Rate > 60; Glucose 94 mg/dL (65-110); Potassium 4.4 mmol/L (3.4-5.0); Sodium 135 mmol/L (137-145)
[2022-07-27 08:39] LABS: Creatinine Urine 58.3 mg/dL
[2022-07-27 08:43] LABS: Sodium Urine Random 112 meq/L
[2022-07-30 17:17] LABS: Albumin 4.2 g/dL (3.8-4.8); Alpha 1 Globulin 0.2 g/dL (0.2-0.3); Alpha 2 Globulin 0.6 g/dL (0.5-0.9); Beta 1 Globulin 0.5 g/dL (0.4-0.6); Gamma Globulin 0.8 g/dL (0.8-1.7); Protein, Total 6.6 g/dL (6.1-8.1)
[2022-07-31 11:18] LABS: Osmolality, Urine 403 mOsm/kg (50-1200)
[2022-07-31 13:45] LABS: Total Protein/Creatinine Ratio 113 mg/g creat (24-184)
== END 2022-07-27 07:15 | disposition home or self-care (01) ==
PROVIDERS: PCP Internal Medicine; Visit Provider Internal Medicine
DX: E87.1 Hypo-osmolality and hyponatremia (principal); I65.23 Occlusion and stenosis of bilateral carotid arteries
CPT/HCPCS: 36415; 80048; 82550; 82570; 83935; 84155; 84156; 84165; 84166; 84300; 93880

== ENCOUNTER 2022-08-04 08:00 | Outpatient (CLI) | payer MEDICARE, SELFPAY ==
[2022-08-04 09:08] LABS: Anion Gap 11 mmol/L (8-16); Blood Urea Nitrogen 10 mg/dL (7-17); Calcium 8.8 mg/dL (8.4-10.2); Carbon Dioxide 27 mmol/L (22-30); Chloride 96 mmol/L (98-107); Estimated Glomerular Filt Rate > 60; Glucose 95 mg/dL (65-110); Sodium 134 mmol/L (137-145)
== END 2022-08-04 08:01 | disposition home or self-care (01) ==
LOC: ANHLAB 08:01
PROVIDERS: PCP Internal Medicine; Visit Provider Internal Medicine
DX: E87.1 Hypo-osmolality and hyponatremia (principal)
CPT/HCPCS: 36415; 80048

== ENCOUNTER 2022-08-18 06:57 | Outpatient (RCR) | payer MEDICARE, SELFPAY ==
[2022-08-22 12:25] LABS: Adrenocorticotropic Hormone 29 pg/mL (6-50)
== END 2022-11-16 23:59 | disposition home or self-care (01) ==
LOC: ANHVASCINF 06:57
PROVIDERS: PCP Internal Medicine; Visit Provider Internal Medicine
DX: E87.1 Hypo-osmolality and hyponatremia (principal); R53.1 Weakness
CPT/HCPCS: 36415; 82024; 82533; 96372; J0834

== ENCOUNTER 2022-09-28 13:42 | Outpatient (CLI) | payer MEDICARE, SELFPAY ==
[2022-09-28 14:30] LABS: Alanine Aminotransferase 22 U/L (6-35); Albumin Level 4.4 g/dL (3.5-5.1); Alkaline Phosphatase 67 U/L (38-126); Anion Gap 11 mmol/L (8-16); Aspartate Amino Transferase 31 U/L (14-36); Bilirubin,Total 0.8 mg/dL (0.2-1.3); Blood Urea Nitrogen 11 mg/dL (7-17); Carbon Dioxide 25 mmol/L (22-30); Chloride 92 mmol/L (98-107); Estimated Glomerular Filt Rate > 60; Glucose 160 mg/dL (65-110); Potassium 4.1 mmol/L (3.4-5.0); Sodium 128 mmol/L (137-145)
[2022-09-28 14:35] LABS: Basophils Percent Auto 0.7 % (0.2-1.2); Eosinophils Percent Auto 0.9 % (0-4.4); Hemoglobin 12.1 g/dL (12.0-15.0); Immature Granulocyte Absolute 0.01 K/mm3 (0.00-0.031); Immature Granulocyte Percent A 0.2 % (0-0.5); Lymphocytes Absolute Auto 1.46 K/mm3 (0.9-3.2); Lymphocytes Percent Auto 33.3 % (18.3-44.2); Mean Corpuscular HGB Conc 33.6 g/dl (32-36); Mean Corpuscular Hemoglobin 30.3 pg (26-34); Mean Platelet Volume 8.2 fl (7.4-10.4); Monocytes Absolute Auto 0.5 K/mm3 (0.1-0.6); Monocytes Percent Auto 10.9 % (2.6-8.5); Neutrophils Absolute Auto 2.4 K/mm3 (1.3-6.7); Platelet Count Result 231 k/mm3 (150-375); White Blood Count 4.4 K/mm3 (4.5-10.0)
[2022-09-28 15:39] LABS: Erythrocyte Sedimentation Rate 12 mm/hr (0-20)
[2022-09-28 16:18] LABS: Rapid Plasma Reagin Non-Reactive (NonReactive)
== END 2022-09-28 13:43 | disposition home or self-care (01) ==
LOC: ANHLAB 13:49
PROVIDERS: PCP Internal Medicine; Visit Provider Internal Medicine
DX: R42 Dizziness and giddiness (principal); R26.89 Other abnormalities of gait and mobility; R51.9 Headache, unspecified
CPT/HCPCS: 36415; 80053; 82607; 85025; 85652; 86592

== ENCOUNTER → 2022-09-30 13:54 | Outpatient (CLI) | payer MEDICARE, SELFPAY ==
--- NOTE | ~2022-09-30 | MR_ITS ---
EXAMINATION: MR brain/brain stem wo/w con DATE: 09/30/2022 14:40 INDICATION: Headache, unspecified. TECHNIQUE: Magnetic resonance imaging (MRI) of the brain and brainstem was performed without and with 10 mL MultiHance intravenous contrast. COMPARISON: Head CT 07/22/2022 FINDINGS: There is no intracranial hemorrhage, acute infarction, or abnormal intracranial mass lesion . There are scattered areas of nonspecific increased T2-weighted signal intensity in the cerebral whi te matter, which is within normal limits for the patient's age. The ventricles are normal in size. Th e paranasal sinuses are clear. There are likely changes of ocular lens replacement surgeries. There i s a small right mastoid effusion. IMPRESSION: 1. Normal aging brain. Reviewed, dictated and finalized at location A. R TRAINER IMPRESSION: 1. Normal aging brain.
== END ==
PROVIDERS: PCP Internal Medicine; Visit Provider Internal Medicine
DX: R51.9 Headache, unspecified (principal)
CPT/HCPCS: 70553; A9577

== ENCOUNTER 2022-10-01 12:35 | Outpatient (CLI) | payer MEDICARE, SELFPAY ==
[2022-10-01 13:06] LABS: Anion Gap 8 mmol/L (8-16); Blood Urea Nitrogen 13 mg/dL (7-17); Carbon Dioxide 29 mmol/L (22-30); Chloride 92 mmol/L (98-107); Estimated Glomerular Filt Rate 60; Glucose 108 mg/dL (65-110); Potassium 4.5 mmol/L (3.4-5.0); Sodium 129 mmol/L (137-145)
== END 2022-10-01 12:36 | disposition home or self-care (01) ==
LOC: ANHLAB 12:38
PROVIDERS: PCP Internal Medicine; Visit Provider Internal Medicine
DX: E87.1 Hypo-osmolality and hyponatremia (principal)
CPT/HCPCS: 36415; 80048

== ENCOUNTER 2022-10-07 08:18 | Outpatient (CLI) | payer MEDICARE, SELFPAY ==
[2022-10-07 09:34] LABS: Anion Gap 6 mmol/L (8-16); Blood Urea Nitrogen 10 mg/dL (7-17); Calcium 9.1 mg/dL (8.4-10.2); Carbon Dioxide 31 mmol/L (22-30); Chloride 93 mmol/L (98-107); Estimated Glomerular Filt Rate > 60; Glucose 103 mg/dL (65-110); Potassium 4.5 mmol/L (3.4-5.0); Sodium 130 mmol/L (137-145)
[2022-10-07 10:26] LABS: Sodium Urine Random 50 meq/L
[2022-10-12 18:02] LABS: Osmolality, Urine 511 mOsm/kg (50-1200)
== END 2022-10-07 08:19 | disposition home or self-care (01) ==
PROVIDERS: PCP Internal Medicine; Visit Provider Internal Medicine
DX: E87.1 Hypo-osmolality and hyponatremia (principal)
CPT/HCPCS: 36415; 80048; 83935; 84133; 84300

== ENCOUNTER 2022-11-09 15:09 | Outpatient (CLI) | payer MEDICARE, SELFPAY ==
[2022-11-09 15:51] LABS: Hemoglobin 12.3 g/dL (12.0-15.0); Mean Corpuscular HGB Conc 32.4 g/dl (32-36); Mean Corpuscular Hemoglobin 30.1 pg (26-34); Mean Corpuscular Volume 92.9 fl (80-100); Mean Platelet Volume 8.1 fl (7.4-10.4); Platelet Count Result 234 k/mm3 (150-375); Red Blood Count 4.09 M/mm3 (4.2-5.4); Red Cell Distribution Width 12.9 % (11.5-14.5); White Blood Count 4.5 K/mm3 (4.5-10.0)
[2022-11-09 16:01] LABS: Albumin Level 4.3 g/dL (3.5-5.1); Anion Gap 4 mmol/L (8-16); Blood Urea Nitrogen 13 mg/dL (7-17); Calcium 8.9 mg/dL (8.4-10.2); Carbon Dioxide 31 mmol/L (22-30); Chloride 94 mmol/L (98-107); Estimated Glomerular Filt Rate > 60; Glucose 95 mg/dL (65-110); Phosphorus 3.4 mg/dL (2.5-4.5); Potassium 4.4 mmol/L (3.4-5.0); Sodium 129 mmol/L (137-145)
[2022-11-09 16:39] LABS: Add Urine Microscopic? NO; Appearance Urine Clear (Clear); Bilirubin Urine Negative (Negative); Blood Urine Negative (Negative); Color Urine Light Yellow (Yellow); Glucose Urine UA Negative (Negative); Ketones Urine Negative (Negative); Leukocyte Esterase Ur Negative LEU/UL (NEGATIVE); Nitrate Urine Negative (Negative); Protein Urine Negative (Negative); Specific Grav Ur 1.015 (1.001-1.035); Urobilinogen Urine 0.2 mg/dL (<2.0)
[2022-11-09 16:54] LABS: WBC Urine 0-3 /hpf (0-3)
[2022-11-09 18:53] LABS: Creatinine Urine 38.1 mg/dL; Total Protein Urine Random 10 mg/dL; Ur Ttl Prot Creatinine Ratio 0.26 mg/mg (0-0.20)
[2022-11-14 12:03] LABS: Metanephrine, Free 64 pg/mL (<=57); Normetanephrine, Free 147 pg/mL (<=148); Total, Free (MN + NMN) 211 pg/mL (<=205)
[2022-11-16 08:40] LABS: Renin 0.08 ng/mL/h (0.25-5.82)
== END 2022-11-09 15:10 | disposition home or self-care (01) ==
LOC: ANHLAB 15:10
PROVIDERS: PCP Internal Medicine; Visit Provider Internal Medicine Nephrology
DX: E87.1 Hypo-osmolality and hyponatremia (principal); I10 Essential (primary) hypertension
CPT/HCPCS: 36415; 80069; 81003; 82088; 82570; 83835; 83970; 84156; 84244; 85027

== ENCOUNTER → 2022-11-16 13:13 | Outpatient (CLI) | payer MEDICARE, SELFPAY ==
--- NOTE | ~2022-11-16 | XR_ITS ---
EXAMINATION: XR chest 2V Exam Date/Time: 11/16/2022 13:40 MATE CHIEF HISTORY: Hyponatremia Comparison: 01/14/2022. RESULT: Lines, tubes, and devices: Partially visualized right shoulder arthroplasty. Lungs and pleura: Increased diffuse reticular opacities. Stable bibasilar subsegmental opacities and apical pleural scarring Cardiomediastinal silhouette: Stable. Other: No acute osseous or upper abdominal finding. IMPRESSION: Pulmonary opacities may represent mild interstitial edema in the appropriate conical context. Reviewed, dictated and finalized at location K. CHIEF IMPRESSION: Pulmonary opacities may represent mild interstitial edema in the appropriate co nical context.
== END ==
PROVIDERS: PCP Internal Medicine; Visit Provider Internal Medicine
DX: E87.1 Hypo-osmolality and hyponatremia (principal); R91.8 Other nonspecific abnormal finding of lung field
CPT/HCPCS: 71046

== ENCOUNTER 2022-12-03 08:57 | Outpatient (CLI) | payer MEDICARE, SELFPAY ==
[2022-12-03 10:20] LABS: Hematocrit 39.9 % (37.0-47.0); Hemoglobin 13.3 g/dL (12.0-15.0); Mean Corpuscular HGB Conc 33.3 g/dl (32-36); Mean Corpuscular Hemoglobin 30.3 pg (26-34); Mean Corpuscular Volume 90.9 fl (80-100); Mean Platelet Volume 8.3 fl (7.4-10.4); Platelet Count Result 233 k/mm3 (150-375); Red Blood Count 4.39 M/mm3 (4.2-5.4); Red Cell Distribution Width 12.7 % (11.5-14.5); White Blood Count 3.5 K/mm3 (4.5-10.0)
[2022-12-03 10:30] LABS: Albumin Level 4.4 g/dL (3.5-5.1); Anion Gap 4 mmol/L (8-16); Blood Urea Nitrogen 13 mg/dL (7-17); Carbon Dioxide 32 mmol/L (22-30); Chloride 95 mmol/L (98-107); Estimated Glomerular Filt Rate > 60; Glucose 98 mg/dL (65-110); Phosphorus 3.9 mg/dL (2.5-4.5); Potassium 4.5 mmol/L (3.4-5.0); Sodium 131 mmol/L (137-145)
== END 2022-12-03 08:58 | disposition home or self-care (01) ==
PROVIDERS: PCP Internal Medicine; Referring Provider Internal Medicine; Visit Provider Internal Medicine Nephrology
DX: I10 Essential (primary) hypertension (principal)
CPT/HCPCS: 36415; 80069; 85027

== ENCOUNTER 2022-12-06 09:31 | Outpatient (CLI) | payer MEDICARE, SELFPAY ==
[2022-12-09 12:56] LABS: Metanephrine, Total Urine 223 mcg/24 h (224-832); Metanephrine, Urine 56 mcg/24 h (90-315); Normetanephrine, Urine 167 mcg/24 h (122-676)
== END 2022-12-06 09:32 | disposition home or self-care (01) ==
PROVIDERS: PCP Internal Medicine; Visit Provider Internal Medicine Nephrology
DX: I10 Essential (primary) hypertension (principal)
CPT/HCPCS: 36415; 82530; 83835

== ENCOUNTER 2023-02-17 07:14 | Outpatient (CLI) | payer MEDICARE, SELFPAY ==
--- NOTE | ~2023-02-17 | XR_ITS ---
Lumbosacral Spine: AP and lateral views Clinical History: Pain Findings: The normal lordotic curve is maintained. The vertebral bodies and posterior elements are i ntact. The intervertebral disc spaces are preserved. The sacroiliac joints are normally outlined. Impression: No significant abnormality. Reviewed, dictated and finalized at [facility]. Impression: No significant abnormality.
--- NOTE | ~2023-02-17 | XR_ITS ---
AP view of the pelvis Clinical history: Pain Findings: No acute fracture or dislocation is seen. Osseous alignment is anatomic. Bilateral hip and SI joint spaces are preserved. Soft tissues are unremarkable. Impression: No significant abnormality is seen. Reviewed, dictated and finalized at location M. Impression: No significant abnormality is seen.
[2023-02-17 09:27] LABS: Basophils Percent Auto 1.2 % (0.2-1.2); Eosinophils Absolute Auto 0.1 K/mm3 (0-0.3); Eosinophils Percent Auto 1.5 % (0-4.4); Hematocrit 38.9 % (37.0-47.0); Hemoglobin 12.7 g/dL (12.0-15.0); Immature Granulocyte Absolute 0.01 K/mm3 (0.00-0.031); Immature Granulocyte Percent A 0.3 % (0-0.5); Lymphocytes Absolute Auto 1.14 K/mm3 (0.9-3.2); Lymphocytes Percent Auto 33.8 % (18.3-44.2); Mean Corpuscular HGB Conc 32.6 g/dl (32-36); Mean Corpuscular Hemoglobin 29.7 pg (26-34); Mean Corpuscular Volume 90.9 fl (80-100); Mean Platelet Volume 8.3 fl (7.4-10.4); Monocytes Absolute Auto 0.4 K/mm3 (0.1-0.6); Monocytes Percent Auto 11.9 % (2.6-8.5); Neutrophils Absolute Auto 1.7 K/mm3 (1.3-6.7); Neutrophils Percent Auto 51.3 % (45.5-73.1); Platelet Count Result 228 k/mm3 (150-375); Red Blood Count 4.28 M/mm3 (4.2-5.4); Red Cell Distribution Width 13.2 % (11.5-14.5); White Blood Count 3.4 K/mm3 (4.5-10.0)
[2023-02-17 09:31] LABS: Appearance Urine Clear (Clear); Bilirubin Urine Negative (Negative); Blood Urine Negative (Negative); Color Urine Yellow (Yellow); Glucose Urine UA Negative (Negative); Ketones Urine Negative (Negative); Leukocyte Esterase Ur Negative LEU/UL (Negative); Nitrate Urine Negative (Negative); Protein Urine Negative (Negative); Specific Grav Ur 1.012 (1.001-1.035); Urobilinogen Urine 0.2 mg/dL (<2.0); pH Urine 7.5 (5.0-9.0)
[2023-02-17 09:44] LABS: Alanine Aminotransferase 17 U/L (6-35); Albumin Level 4.5 g/dL (3.5-5.1); Alkaline Phosphatase 54 U/L (38-126); Anion Gap 5 mmol/L (8-16); Aspartate Amino Transferase 28 U/L (14-36); Bilirubin,Total 1.3 mg/dL (0.2-1.3); Blood Urea Nitrogen 11 mg/dL (7-17); CRP < 0.5 mg/dL (<1.0); Carbon Dioxide 31 mmol/L (22-30); Chloride 96 mmol/L (98-107); Cholesterol 228 mg/dL (0-200); Estimated Glomerular Filt Rate > 60; Glucose 92 mg/dL (65-110); HDL Direct 80 mg/dL; Potassium 4.2 mmol/L (3.4-5.0); Sodium 132 mmol/L (137-145); Triglycerides 82 mg/dL (<150)
[2023-02-17 09:53] LABS: LDL Cholesterol Direct 96 mg/dL
[2023-02-17 09:58] LABS: Add Urine Microscopic? NO
[2023-02-17 10:00] LABS: Erythrocyte Sedimentation Rate 13 mm/hr (0-20)
[2023-02-17 10:39] LABS: Vitamin B12 > 1000.0 pg/mL (239-931)
== END 2023-02-17 07:15 | disposition home or self-care (01) ==
PROVIDERS: PCP Internal Medicine; Visit Provider Internal Medicine
DX: M54.50 Low back pain, unspecified (principal); G89.29 Other chronic pain; R20.2 Paresthesia of skin; R68.89 Other general symptoms and signs
CPT/HCPCS: 36415; 72100; 72170; 80053; 80061; 81003; 82607; 84443; 85025; 85652; 86038; 86140

== ENCOUNTER 2023-02-21 16:25 | Emergency (ER) | payer MEDICARE, SELFPAY ==
[2023-02-21 16:32] VITALS: BP 176/84; PULSE 71; RESP 18; TEMP 37.2; O2SAT 100
--- NOTE | 2023-02-21 17:25 | PC.NURSE ---
pt came up to Intake desk and stated that her anxiety can take sit in the lobby and they there were people who needed care more than me Pt states she would come back tomorrow. Pt ambulatory with family out of ED at this time.
== END 2023-02-21 21:42 | disposition left against medical advice (07) ==
LOC: ANHED 17:46
PROVIDERS: PCP Internal Medicine
DX: R41.0 Disorientation, unspecified (principal)
CPT/HCPCS: 99199

== ENCOUNTER 2023-03-09 08:18 | Outpatient (CLI) | payer MEDICARE, SELFPAY ==
--- NOTE | ~2023-03-09 | US_ITS ---
EXAMINATION: US art doppler w press LE BI DATE: 03/09/2023 10:02 INDICATION: Decreased circulation to lower extremities TECHNIQUE: Segmental pressures and plethysmographic and Doppler waveforms of the brachial and lower e xtremity arteries were obtained. COMPARISON: None. FINDINGS: Right and left brachial artery pressures of 150 mm Hg and 159 mm Hg, respectively, are concordant (no rmal difference <= 30 mmHg). The right and left high-thigh pressure indices are 1.25 and 1.10, respec tively (normal > 1.2). The right ankle-brachial index (ANTONIO) is 1.03 (normal >= 0.9-1). The right great toe-brachial index (T BI) is 0.29 (normal >= 0.6-0.8). The right lower extremity segmental pressure gradients are normal (n ormal gradients <= 20-30 mmHg between adjacent levels on the same leg or the same levels on the two l egs). Arterial waveforms are biphasic with brisk systolic upstrokes throughout the arteries of the ri ght lower limb. The left ANTONIO is 1.08. The left TBI is 0.36. The left lower extremity segmental pressure gradients are normal. Arterial waveforms are biphasic with brisk systolic upstrokes throughout the arteries of the left lower limb. IMPRESSION: 1. Arterial occlusive disease to bilateral lower limbs with normal bilateral ABIs and mild to moderat sigrid decreased bilateral TBIs Reviewed, dictated and finalized at location A. IMPRESSION: 1. Arterial occlusive disease to bilateral lower limbs with normal bilateral AB Is and mild to moderately decreased bilateral TBIs
== END 2023-03-09 08:19 | disposition home or self-care (01) ==
PROVIDERS: PCP Internal Medicine; Visit Provider Internal Medicine
DX: R09.89 Other specified symptoms and signs involving the circulatory and respiratory systems (principal); I73.9 Peripheral vascular disease, unspecified
CPT/HCPCS: 93923

== ENCOUNTER 2023-04-13 07:00 | Outpatient (CLI) | payer MEDICARE, SELFPAY ==
[2023-04-13 08:31] LABS: Creatinine Urine 72.7 mg/dL
[2023-04-13 08:36] LABS: MALB Creatinine Ratio 8.5 mg/g (0-30); Microalbumin Urine Random 6.2 mg/L (0-16.7)
[2023-04-13 08:48] LABS: Alanine Aminotransferase 19 U/L (6-35); Albumin Level 3.9 g/dL (3.5-5.1); Alkaline Phosphatase 51 U/L (38-126); Anion Gap 3 mmol/L (8-16); Aspartate Amino Transferase 32 U/L (14-36); Bilirubin,Total 1.6 mg/dL (0.2-1.3); Blood Urea Nitrogen 14 mg/dL (7-17); Calcium 8.4 mg/dL (8.4-10.2); Carbon Dioxide 32 mmol/L (22-30); Chloride 99 mmol/L (98-107); Cholesterol 135 mg/dL (0-200); Estimated Glomerular Filt Rate > 60; Glucose 91 mg/dL (65-110); HDL Direct 73 mg/dL; Potassium 4.2 mmol/L (3.4-5.0); Sodium 134 mmol/L (137-145); Triglycerides 57 mg/dL (<150)
[2023-04-13 08:59] LABS: LDL Cholesterol Direct 45 mg/dL
== END 2023-04-13 07:01 | disposition home or self-care (01) ==
LOC: ANHLAB 07:03
PROVIDERS: PCP Internal Medicine; Visit Provider Internal Medicine
DX: I10 Essential (primary) hypertension (principal); Z86.73 Personal history of transient ischemic attack (TIA), and cerebral infarction without residual deficits
CPT/HCPCS: 36415; 80053; 80061; 82043

== ENCOUNTER → 2023-04-19 13:05 | Outpatient (CLI) | payer MEDICARE, SELFPAY ==
--- NOTE | ~2023-04-19 | XR_ITS ---
EXAM: XR abdomen obstructive series DATE: 04/19/2023 13:28 HISTORY: Constipation abd pain . COMPARISON: None available. FINDINGS: Right axillary clips. Senescent changes and bibasilar scarring in the lung bases. No organ omegaly. No abnormal abdominal calcification. Normal bowel gas pattern. Mild lumbar degenerative disc disease, osteitis pubis and bilateral hip osteoarthritis. IMPRESSION: No radiographic evidence of obstruction or ileus. Reviewed, dictated and finalized at location K.
== END ==
PROVIDERS: PCP Internal Medicine; Visit Provider Internal Medicine
DX: K59.00 Constipation, unspecified (principal)
CPT/HCPCS: 74019

== ENCOUNTER 2023-05-15 14:09 | Outpatient (CLI) | payer MEDICARE, SELFPAY ==
--- NOTE | ~2023-05-15 | XR_ITS ---
EXAMINATION: XR chest 2V Exam Date/Time: 05/15/2023 14:35 CDT HISTORY: E87.1 - Hypo-osmolality and hyponatremia, SPOT SEEN ON PRIOR Comparison: 11/16/2022. RESULT: Lines, tubes, and devices: Uncomplicated appearing right shoulder arthroplasty. Surgical clips over the right axilla. Lungs and pleura: Hyperinflation. Senescent changes. Unchanged bilateral apical scar and posterior c ostophrenic angle blunting. Cardiomediastinal silhouette: Stable. Other: No acute osseous or upper abdominal finding. Stable mid thoracic vertebral body compression f racture. IMPRESSION: No acute cardiopulmonary process. Chronic emphysematous/senescent change. Chronic posterior costophre miguelina angle blunting, may represent small effusions or chronic pleural parenchymal scarring. Reviewed, dictated and finalized at [facility]. IMPRESSION: No acute cardiopulmonary process. Chronic emphysematous/senescent change. Chron ic posterior costophrenic angle blunting, may represent small effusions or hi lift operator miguelina pleural parenchymal scarring.
[2023-05-15 14:45] LABS: Albumin Level 4.1 g/dL (3.5-5.1); Anion Gap 6 mmol/L (8-16); Blood Urea Nitrogen 19 mg/dL (7-17); Calcium 9.2 mg/dL (8.4-10.2); Carbon Dioxide 30 mmol/L (22-30); Chloride 94 mmol/L (98-107); Estimated Glomerular Filt Rate > 60; Glucose 118 mg/dL (65-110); Phosphorus 3.7 mg/dL (2.5-4.5); Potassium 4.2 mmol/L (3.4-5.0); Sodium 130 mmol/L (137-145)
[2023-05-15 15:16] LABS: Thyroid Stimulating Hormone 0.258 uIU/mL (0.465-4.680)
[2023-05-15 18:47] LABS: Cortisol Random 0.45 ug/dL
[2023-05-17 19:19] LABS: Osmolality, Urine 671 mOsm/kg (50-1200)
[2023-05-18 15:45] LABS: Albumin 3.9 g/dL (3.8-4.8); Alpha 1 Globulin 0.2 g/dL (0.2-0.3); Alpha 2 Globulin 0.7 g/dL (0.5-0.9); Beta 1 Globulin 0.5 g/dL (0.4-0.6); Gamma Globulin 0.9 g/dL (0.8-1.7); Protein, Total 6.4 g/dL (6.1-8.1)
== END 2023-05-15 14:10 | disposition home or self-care (01) ==
PROVIDERS: PCP Internal Medicine; Visit Provider Internal Medicine Nephrology
DX: E87.1 Hypo-osmolality and hyponatremia (principal); K59.00 Constipation, unspecified
CPT/HCPCS: 36415; 71046; 80069; 82533; 83930; 83935; 84155; 84165; 84443

== ENCOUNTER 2023-05-30 06:58 | Outpatient (CLI) | payer MEDICARE, SELFPAY ==
[2023-05-30 09:34] LABS: Cortisol 30 Minute 7.54 ug/dL
[2023-05-30 09:35] LABS: Cortisol Baseline 1.75 ug/dL
== END 2023-05-30 06:59 | disposition home or self-care (01) ==
PROVIDERS: PCP Internal Medicine; Visit Provider Internal Medicine Nephrology
DX: R94.7 Abnormal results of other endocrine function studies (principal); E87.1 Hypo-osmolality and hyponatremia
CPT/HCPCS: 36415; 82533; 96372; J0834

== ENCOUNTER 2023-05-31 12:25 | Outpatient (CLI) | payer MEDICARE, SELFPAY ==
[2023-06-03 05:56] LABS: FSH 76.4 mIU/mL (***); Prolactin 9.6 ng/mL (***)
[2023-06-05 11:39] LABS: Metanephrine, Free 67 pg/mL (<=57); Normetanephrine, Free 98 pg/mL (<=148); Total, Free (MN + NMN) 165 pg/mL (<=205)
[2023-06-05 12:06] LABS: Adrenocorticotropic Hormone 8 pg/mL (6-50)
== END 2023-05-31 12:26 | disposition home or self-care (01) ==
PROVIDERS: PCP Internal Medicine; Visit Provider Internal Medicine Nephrology
DX: E27.40 Unspecified adrenocortical insufficiency (principal)
CPT/HCPCS: 36415; 82024; 82088; 83001; 83835; 84146; 84443

== ENCOUNTER 2023-06-17 08:36 | Outpatient (CLI) | payer MEDICARE, SELFPAY ==
--- NOTE | ~2023-06-17 | MR_ITS ---
EXAMINATION: MR brain/brain stem wo/w con DATE: 06/17/2023 09:40 INDICATION: Adrenal insufficiency. Low ACTH. TECHNIQUE: Magnetic resonance imaging (MRI) of the brain and brainstem was performed without and with 10 mL MultiHance intravenous contrast. COMPARISON: Brain MRI 09/30/2022 FINDINGS: The pituitary is normal in size with height of 4 mm and concave superior margin. The infund ibulum is at the midline. There are scattered areas of nonspecific increased T2-weighted signal inten sity in the cerebral white matter, which is within normal limits for the patient's age. There is no i ntracranial hemorrhage, acute infarction, or abnormal intracranial mass lesion. The ventricles are no rmal in size. The paranasal sinuses are clear. There are likely changes of ocular lens replacement whitaker rgeries. The mastoid air cells are normal. IMPRESSION: 1. Normal aging brain. Normal pituitary. Reviewed, dictated and finalized at location A.
== END 2023-06-17 08:37 | disposition home or self-care (01) ==
PROVIDERS: PCP Internal Medicine; Visit Provider Internal Medicine Nephrology
DX: E27.40 Unspecified adrenocortical insufficiency (principal); R79.89 Other specified abnormal findings of blood chemistry
CPT/HCPCS: 70553; A9577

== ENCOUNTER 2023-06-28 12:49 | Outpatient (CLI) | payer MEDICARE, SELFPAY | END 2023-06-28 12:50 | disposition home or self-care (01) | PROVIDERS: PCP Internal Medicine; Visit Provider Internal Medicine | DX: E03.9 Hypothyroidism, unspecified (principal) | CPT/HCPCS: 36415; 84443 ==

== ENCOUNTER 2023-07-14 00:49 | Day surgery (SDC) | payer MEDICARE, SELFPAY ==
[2023-06-30 13:40] VITALS: BMI 19.1
[2023-07-14 09:58] VITALS: BP 139/67; PULSE 63; RESP 20; TEMP 36.1; O2SAT 99
--- NOTE | 2023-07-14 10:00 | PM.HPGS ---
History of Present Illness History of Present Illness Consent: Risks, benefits, and alternatives have been discussed and questions answered. Patient agrees to proceed with procedure. Chief complaint: Epigastric pain Narrative: Vanda Blancas is a 83 year old female With epigastric pain. She has a previous history having had H pylori many years ago. Review of Systems Review of Systems: All systems reviewed & are unremarkable except as noted in HPI and below PMFSH Past Medical History Medical History Hx of breast cancer Hx of malignant neoplasm of nasal cavity Hypothyroidism Surgical History Surgical History History of right shoulder replacement Hx of hysterectomy Social History Social History Smoking status: Never smoker Alcohol intake: current Alcohol use details: occasional Substance use: never Substance use type: does not use Lack of Transportation: No Lack of Food: Never True Current Housing: I Have Housing Concerned About Future Housing: No Difficulty Paying Gas/Electric Bills: No Difficulty Paying for Meds: No Currently Unemployed: No Education: Master's Degree or Higher Difficulty w/ Childcare or Family Care: No [place] Spiritual care concerns: No Meds Home Medications and Allergies Home Medications Medication Instructions Recorded Confirmed Type atorvastatin 20 mg tablet 20 mg PO DAILY 02/22/22 06/30/23 History carvedilol 12.5 mg tablet 6.25 mg PO Q12H 02/22/22 06/30/23 History cholecalciferol (vitamin D3) 625 625 mcg PO DAILY 02/22/22 06/30/23 History mcg (25,000 unit) capsule cyclosporine 0.05 % eye drops in a 1 drp EACH EYE Q12H 02/22/22 06/30/23 History dropperette (Restasis) aspirin 81 mg tablet,delayed 81 mg PO DAILY 03/28/23 06/30/23 History release anastrozole 1 mg tablet 1 mg PO DAILY 05/10/23 06/30/23 History buspirone 5 mg tablet 5 mg PO BID 05/10/23 06/30/23 History omeprazole 40 mg capsule,delayed 20 mg PO DAILY 05/10/23 06/30/23 History release levothyroxine 75 mcg capsule 75 mcg PO DAILY 06/13/23 06/30/23 History polyethylene glycol 3350 17 17 g PO DAILY 06/13/23 06/30/23 History gram/dose oral powder (Miralax) [id number] 1 tablet PO DAILY 06/30/23 06/30/23 History tablet (Multivitamin 50 Plus tablet) Allergies Allergy/AdvReac Type Severity Reaction Status Date / Time No Known Allergies Allergy Verified 07/14/23 09:57 Vital Signs Vital Signs - 24 hr 07/14/23 09:58 Temperature 36.1 C L Pulse Rate 63 Respiratory Rate 20 Blood Pressure 139/67 Pulse Oximetry 99 Oxygen Delivery Room Air Exam Const: General: alert Orientation/consciousness: patient oriented x3 Resp: Auscultation: clear to auscultation bilaterally Cardio: Rhythm: regular rhythm GI: GI Palp: Yes Soft to palpation and No Tenderness to palpation present (GI) Neuro: General: patient oriented x3 Assessment and Plan Assessment and plan (1) Epigastric pain: Code(s): R10.13 - Epigastric pain Status: Acute Assessment and Plan: EGD with possible biopsy or dilatation or cautery.
[2023-07-14] MEDS: LACTATED RINGERS 1,000 ML 150 ML IV CONT (10:07)
--- NOTE | 2023-07-14 10:07 | WPDANESEPPF ---
Anes - Initial Pre Proc Eval Procedure: Operation Date: 07/14/23 11:15 Proposed Procedures p Esophagogastroduodenoscopy - Davin Madsen MD Date/Time: 07/14/23 10:07 Surgeon: Davin Madsen MD Pre Op Diagnosis: Epigastric pain Patient Data Age: 83 Gender: F Height: 1.65 m Weight: 49.5 kg Last Vital Signs Temp 36.1 C L 07/14/23 09:58 Pulse 63 07/14/23 09:58 Resp 20 07/14/23 09:58 BP 139/67 07/14/23 09:58 Pulse Ox 99 07/14/23 09:58 O2 Del Method Room Air 07/14/23 09:58 Allergies Allergy/AdvReac Type Severity Reaction Status Date / Time No Known Allergies Allergy Verified 07/14/23 09:57 Home Medications Medication Instructions Recorded Confirmed Type atorvastatin 20 mg tablet 20 mg PO DAILY 02/22/22 06/30/23 History carvedilol 12.5 mg tablet 6.25 mg PO Q12H 02/22/22 06/30/23 History cholecalciferol (vitamin D3) 625 625 mcg PO DAILY 02/22/22 06/30/23 History mcg (25,000 unit) capsule cyclosporine 0.05 % eye drops in a 1 drp EACH EYE Q12H 02/22/22 06/30/23 History dropperette (Restasis) aspirin 81 mg tablet,delayed 81 mg PO DAILY 03/28/23 06/30/23 History release anastrozole 1 mg tablet 1 mg PO DAILY 05/10/23 06/30/23 History buspirone 5 mg tablet 5 mg PO BID 05/10/23 06/30/23 History omeprazole 40 mg capsule,delayed 20 mg PO DAILY 05/10/23 06/30/23 History release levothyroxine 75 mcg capsule 75 mcg PO DAILY 06/13/23 06/30/23 History polyethylene glycol 3350 17 17 g PO DAILY 06/13/23 06/30/23 History gram/dose oral powder (Miralax) [id number] 1 tablet PO DAILY 06/30/23 06/30/23 History tablet (Multivitamin 50 Plus tablet) Patient hx anesthesia problems: none Family hx anesthesia problems: none Results Review: All pre-operative results and documents have been reviewed as part of the pre-operative evaluation. [facility] Past Medical History Medical History Hx of breast cancer Hx of malignant neoplasm of nasal cavity Hypothyroidism Surgical History Surgical History History of right shoulder replacement Hx of hysterectomy Social History Social History Smoking status: Never smoker Alcohol intake: current Alcohol use details: occasional Substance use: never Substance use type: does not use Lack of Transportation: No Lack of Food: Never True Current Housing: I Have Housing Concerned About Future Housing: No Difficulty Paying Gas/Electric Bills: No Difficulty Paying for Meds: No Currently Unemployed: No Education: Master's Degree or Higher Difficulty w/ Childcare or Family Care: No Living arrangements: [facility] care concerns: No Anes - Eval Final PreProcedure Day of Procedure 07/14/23 10:07 Patient weight: thin Heart: regular rate and rhythm Lungs: clear to auscultation Airway: Mallampati scale class II Neurological: alert and oriented Last oral intake: >/= 8 hours ASA classification: III Emergent: no Anesthetic plan: proceed Anesthesia type and monitoring: general GIVS and standard monitoring Results Review: All pre-operative results and documents have been reviewed as part of the pre-operative evaluation. Informed Consent: The patient's anesthetic plan and its attendant risks and benefits were discussed with the patient/family/POA. Questions were solicited and answers provided to the satisfaction of the patient/family/POA.
[2023-07-14 11:04] VITALS: BP 124/63; PULSE 62; RESP 18; O2SAT 99
[2023-07-14 11:14] VITALS: BP 135/76; PULSE 60; RESP 18; O2SAT 100
[2023-07-14 11:24] VITALS: BP 137/68; PULSE 61; RESP 16; O2SAT 100
== END 2023-07-14 11:31 | disposition home or self-care (01) ==
PROVIDERS: PCP Internal Medicine; Visit Provider Internal Medicine Gastroenterology
PROC: 0DJ08ZZ Inspection of Upper Intestinal Tract, Via Natural or Artificial Opening Endoscopic (ICD-10-PCS; CPT 43235; principal; 2023-07-14 11:15)
DX: K21.9 Gastro-esophageal reflux disease without esophagitis (principal); E03.9 Hypothyroidism, unspecified; Z79.82 Long term (current) use of aspirin; Z79.811 Long term (current) use of aromatase inhibitors; Z85.3 Personal history of malignant neoplasm of breast; Z85.22 Personal history of malignant neoplasm of nasal cavities, middle ear, and accessory sinuses
CPT/HCPCS: 43239; 87081; J2704; J7120

== ENCOUNTER 2023-07-30 10:37 | Emergency (ER) | payer MEDICARE, SELFPAY ==
--- NOTE | 2023-07-30 10:44 | ED.FEMALEGU ---
HPI - Female Genitourinary General Chief complaint: Urogenital-Female Stated complaint: UTI SYMPTOMS Time Seen by Provider: 07/30/23 10:40 Source: patient Mode of arrival: ambulatory Limitations: no limitations History of Present Illness HPI Narrative: Patient is a 83-year-old female who presents with 3 days of urinary frequency, burning with urination, pelvic pressure. Patient states she denies history of UTIs but does wear scented pads. Has not tried any [id number] medications. Denies any low back pain, fever, chills, nausea, vomiting, diarrhea. MD elicited complaint: dysuria Related Data Home Medications Medication Instructions Recorded Confirmed atorvastatin 20 mg tablet 20 mg PO DAILY 02/22/22 07/30/23 carvedilol 12.5 mg tablet 6.25 mg PO Q12H 02/22/22 07/30/23 cholecalciferol (vitamin D3) 625 625 mcg PO DAILY 02/22/22 07/30/23 mcg (25,000 unit) capsule cyclosporine 0.05 % eye drops in a 1 drp EACH EYE Q12H 02/22/22 07/30/23 dropperette (Restasis) aspirin 81 mg tablet,delayed 81 mg PO DAILY 03/28/23 07/30/23 release anastrozole 1 mg tablet 1 mg PO DAILY 05/10/23 07/30/23 buspirone 5 mg tablet 5 mg PO BID 05/10/23 07/30/23 omeprazole 40 mg capsule,delayed 20 mg PO DAILY 05/10/23 07/30/23 release levothyroxine 75 mcg capsule 75 mcg PO DAILY 06/13/23 07/30/23 polyethylene glycol 3350 17 17 g PO DAILY 06/13/23 07/30/23 gram/dose oral powder (Miralax) [id number] 1 tablet PO DAILY 06/30/23 07/30/23 tablet (Multivitamin 50 Plus tablet) Allergies Allergy/AdvReac Type Severity Reaction Status Date / Time No Known Allergies Allergy Verified 07/30/23 10:43 Review of Systems Review of Systems: All systems reviewed & are unremarkable except as noted in HPI and below Constitutional: Constitutional: Denies chills, Denies fever(s), Denies headache(s), Denies malaise and Denies weakness Eyes: Eyes: Denies change in vision, Denies eye discharge and Denies irritation ENT: Denies otalgia, Denies headache(s), Denies nasal congestion, Denies nasal discharge, Denies sinus pain and Denies sore throat Cardiovascular: Cardiovascular: Denies chest pain, Denies edema, Denies palpitations and Denies dyspnea Respiratory: Respiratory: Denies cough and Denies dyspnea Gastrointestinal: Gastrointestinal: Denies abdominal pain, Denies diarrhea, Denies nausea and Denies vomiting Genitourinary: Genitourinary: Denies hematuria, Reports nocturia, Reports dysuria, Denies flank pain and Reports urinary urgency Musculoskeletal: Musculoskeletal: Denies back pain and Denies numbness Integumentary/Breasts: Skin/Breast: Denies pruritus and Denies rash Neurologic: Denies headache(s), Denies numbness and Denies weakness Psychiatric: Psychiatric: Reports no additional psychiatric complaints Endocrine: Endocrine: Denies palpitations PMFSH Past Medical History Medical History Hx of breast cancer Hx of malignant neoplasm of nasal cavity Hypothyroidism Surgical History Surgical History History of right shoulder replacement Hx of hysterectomy Social History Social History Smoking status: Never smoker Alcohol intake: current Alcohol use details: occasional Substance use: never Substance use type: does not use Lack of Transportation: No Lack of Food: Never True Current Housing: I Have Housing Concerned About Future Housing: No Difficulty Paying Gas/Electric Bills: No Difficulty Paying for Meds: No Currently Unemployed: No Education: Master's Degree or Higher Difficulty w/ Childcare or Family Care: No Living arrangements: alf shelter[facility] Spiritual care concerns: No Comments At time of signature, agree with nursing past medical, surgical, social and family history. There is no relevant family history
[2023-07-30 10:47] VITALS: BP 121/64; PULSE 75; RESP 16; TEMP 36.4; O2SAT 100
== END 2023-07-30 11:05 | disposition home or self-care (01) ==
PROVIDERS: Emergency Provider Nurse Practitioner Family; PCP Internal Medicine
DX: N30.01 Acute cystitis with hematuria (principal); E03.9 Hypothyroidism, unspecified; Z85.3 Personal history of malignant neoplasm of breast
CPT/HCPCS: 81003; 87077; 87086; 87186; 99213; G0463

== ENCOUNTER 2023-08-10 06:54 | Outpatient (CLI) | payer MEDICARE, SELFPAY ==
[2023-08-10 07:35] LABS: Alanine Aminotransferase 23 U/L (6-35); Albumin Level 4.2 g/dL (3.5-5.1); Alkaline Phosphatase 60 U/L (38-126); Anion Gap 3 mmol/L (8-16); Aspartate Amino Transferase 36 U/L (14-36); Blood Urea Nitrogen 11 mg/dL (7-17); Calcium 8.6 mg/dL (8.4-10.2); Carbon Dioxide 31 mmol/L (22-30); Chloride 95 mmol/L (98-107); Estimated Glomerular Filt Rate > 60; Glucose 90 mg/dL (65-110); Potassium 4.1 mmol/L (3.4-5.0); Sodium 129 mmol/L (137-145)
[2023-08-10 07:58] LABS: Free T4 Free Thyroxine 1.21 ng/mL (0.78-2.19)
[2023-08-13 03:28] LABS: DHEA-Sulfate 31 mcg/dL (7-177); Thyroid Peroxidase Antibodies 333 IU/mL (<9)
[2023-08-13 20:20] LABS: Osmolality, Urine 289 mOsm/kg (50-1200)
[2023-08-14 15:26] LABS: Prolactin 10.8 ng/mL (***)
[2023-08-15 20:14] LABS: Adrenocorticotropic Hormone 32 pg/mL (6-50)
== END 2023-08-10 06:55 | disposition home or self-care (01) ==
PROVIDERS: PCP Internal Medicine; Visit Provider Internal Medicine
DX: E27.40 Unspecified adrenocortical insufficiency (principal)
CPT/HCPCS: 36415; 80053; 82024; 82533; 82627; 83935; 84146; 84439; 84443; 86376

== ENCOUNTER 2023-08-18 07:00 | Outpatient (CLI) | payer MEDICARE, SELFPAY | END 2023-08-18 07:01 | disposition home or self-care (01) | LOC: ANHOUTPT 07:01 | PROVIDERS: PCP Internal Medicine; Visit Provider Internal Medicine | DX: E27.40 Unspecified adrenocortical insufficiency (principal) | CPT/HCPCS: 36415; 82533; 96372; J0834 ==

== ENCOUNTER 2023-09-04 11:53 | Outpatient (CLI) | payer MEDICARE, SELFPAY ==
[2023-09-04 13:16] LABS: Albumin Level 4.3 g/dL (3.5-5.1); Anion Gap 4 mmol/L (8-16); Blood Urea Nitrogen 10 mg/dL (7-17); Calcium 9.3 mg/dL (8.4-10.2); Carbon Dioxide 32 mmol/L (22-30); Chloride 95 mmol/L (98-107); Estimated Glomerular Filt Rate > 60; Glucose 88 mg/dL (65-110); Phosphorus 4.1 mg/dL (2.5-4.5); Potassium 4.4 mmol/L (3.4-5.0); Sodium 131 mmol/L (137-145)
== END 2023-09-04 11:54 | disposition home or self-care (01) ==
PROVIDERS: PCP Internal Medicine; Visit Provider Internal Medicine Nephrology
DX: E87.1 Hypo-osmolality and hyponatremia (principal)
CPT/HCPCS: 36415; 80069

== ENCOUNTER 2023-09-06 08:14 | Outpatient (CLI) | payer MEDICARE, SELFPAY ==
[2023-09-06 09:31] LABS: Basophils Percent Auto 0.7 % (0.2-1.2); Eosinophils Absolute Auto 0.1 K/mm3 (0-0.3); Hematocrit 38.7 % (37.0-47.0); Hemoglobin 12.5 g/dL (12.0-15.0); Immature Granulocyte Absolute 0.01 K/mm3 (0.00-0.031); Immature Granulocyte Percent A 0.2 % (0-0.5); Lymphocytes Absolute Auto 0.94 K/mm3 (0.9-3.2); Lymphocytes Percent Auto 23.4 % (18.3-44.2); Mean Corpuscular HGB Conc 32.3 g/dl (32-36); Mean Corpuscular Hemoglobin 29.9 pg (26-34); Mean Corpuscular Volume 92.6 fl (80-100); Mean Platelet Volume 8.6 fl (7.4-10.4); Monocytes Absolute Auto 0.4 K/mm3 (0.1-0.6); Monocytes Percent Auto 9.2 % (2.6-8.5); Neutrophils Absolute Auto 2.6 K/mm3 (1.3-6.7); Neutrophils Percent Auto 64.5 % (45.5-73.1); Platelet Count Result 202 k/mm3 (150-375); Red Blood Count 4.18 M/mm3 (4.2-5.4); Red Cell Distribution Width 13.1 % (11.5-14.5)
[2023-09-06 09:46] LABS: Alanine Aminotransferase 20 U/L (6-35); Albumin Level 4.2 g/dL (3.5-5.1); Alkaline Phosphatase 58 U/L (38-126); Anion Gap 3 mmol/L (8-16); Aspartate Amino Transferase 36 U/L (14-36); Blood Urea Nitrogen 9 mg/dL (7-17); Carbon Dioxide 32 mmol/L (22-30); Chloride 96 mmol/L (98-107); Cholesterol 164 mg/dL (0-200); Estimated Glomerular Filt Rate > 60; Glucose 97 mg/dL (65-110); HDL Direct 78 mg/dL; Potassium 4.5 mmol/L (3.4-5.0); Sodium 131 mmol/L (137-145); Triglycerides 63 mg/dL (<150)
[2023-09-06 09:57] LABS: LDL Cholesterol Direct 59 mg/dL
[2023-09-06 10:32] LABS: Hepatitis C Virus Antibody Negative (Negative)
== END 2023-09-06 08:15 | disposition home or self-care (01) ==
LOC: ANHLAB 08:17
PROVIDERS: PCP Internal Medicine; Visit Provider Internal Medicine
DX: E78.5 Hyperlipidemia, unspecified (principal); D72.819 Decreased white blood cell count, unspecified; Z11.59 Encounter for screening for other viral diseases
CPT/HCPCS: 36415; 80053; 80061; 85025; 86803

== ENCOUNTER → 2023-10-13 08:37 | Outpatient (CLI) | payer MEDICARE, SELFPAY ==
--- NOTE | ~2023-10-13 | MR_ITS ---
EXAMINATION: MR lumbar spine wo con DATE: 10/13/2023 09:23 INDICATION: Lumbar radicular pain and right-sided low back pain TECHNIQUE: Magnetic resonance imaging (MRI) of the lumbar spine was performed without intravenous con trast. Sequences included sagittal T2-weighted FSE, sagittal T2-weighted FS FSE, sagittal T1-weighted FSE, and axial T2-weighted FSE. COMPARISON: None FINDINGS: 6 degrees lumbar levocurvature. Sagittal alignment is normal. Vertebral body heights are normal. Nor mal marrow signal. Disc desiccation from T1 T12 through L4-L5 with mild disc height loss at L3-L4. Th e conus medullaris terminates at L1-L2. There is normal signal in the caudal spinal cord. Paravertebr al soft tissues are unremarkable. The following disc levels are specifically discussed: T12-L1: The disc does not extend beyond the endplate margin. There is mild right facet joint osteoart hritis. There is no neural foraminal stenosis. There is no central canal stenosis. L1-L2: Disc is mildly bulging. There is mild left and minimal right facet joint osteoarthritis. There is no neural foraminal stenosis. There is no central canal stenosis. L2-L3: Disc is mildly bulging with superimposed bilateral foraminal zone disc protrusions. There is h ypertrophy of the ligamentum flavum. There is mild left and moderate right facet joint osteoarthritis . There is mild bilateral neural foraminal stenosis. There is normal central canal stenosis. L3-L4: Mild bilateral foraminal zone disc protrusions. There is hypertrophy of the ligamentum flavum. There is moderate bilateral facet joint osteoarthritis. There is mild right and moderate left neura l foraminal stenosis. There is no central canal stenosis. L4-L5: Disc is mildly bulging with bilateral foraminal zone disc protrusions. There is hypertrophy of the ligamentum flavum. There is moderate bilateral facet joint osteoarthritis. There is mild bilater al neural foraminal stenosis. There is mild central canal stenosis. L5-S1: Disc is mildly bulging. There is moderate bilateral facet joint osteoarthritis. There is mild left neural foraminal stenosis. There is no central canal stenosis. IMPRESSION: 1. Mild lumbar spondylosis with mild to moderate lower lumbar predominant facet osteoarthritis. Reviewed, dictated and finalized at location A. TRE MA[employer]GER
== END ==
PROVIDERS: PCP Internal Medicine; Visit Provider Nurse Practitioner Family
DX: M47.26 Other spondylosis with radiculopathy, lumbar region (principal)
CPT/HCPCS: 72148

== ENCOUNTER 2023-11-07 17:47 | Emergency (ER) | payer MEDICARE, SELFPAY ==
[2023-11-07 17:55] VITALS: BP 177/90; PULSE 123; RESP 16; TEMP 36.3; O2SAT 100
--- NOTE | 2023-11-07 18:08 | ED.GENADULT ---
HPI - General Adult General Chief complaint: Dental/Oral Stated complaint: Swollen jaws Time Seen by Provider: 11/07/23 18:08 Source: patient, RN notes reviewed and old records reviewed Mode of arrival: ambulatory Limitations: no limitations History of Present Illness HPI narrative: 83-year-old female presents to the [facility] with complaints of a sore mouth and white patches. Patient states that her dentures are extremely painful, gums are painful. States that her jaw and around her belt has been swollen all day. Painful to eat. Patient denies fevers. No treatment prior to arrival Patient denies using inhalers Wears dentures and states that she cleaned some every day Patient denies any throat pain. Onset (ago): day(s) (2) Related Data Home Medications Medication Instructions Recorded Confirmed atorvastatin 20 mg tablet 20 mg PO DAILY 02/22/22 09/12/23 carvedilol 12.5 mg tablet 6.25 mg PO Q12H 02/22/22 09/12/23 cholecalciferol (vitamin D3) 625 625 mcg PO DAILY 02/22/22 09/12/23 mcg (25,000 unit) capsule cyclosporine 0.05 % eye drops in a 1 drp EACH EYE Q12H 02/22/22 09/12/23 dropperette (Restasis) aspirin 81 mg tablet,delayed 81 mg PO DAILY 03/28/23 09/12/23 release anastrozole 1 mg tablet 1 mg PO DAILY 05/10/23 09/12/23 buspirone 5 mg tablet 5 mg PO BID 05/10/23 09/12/23 omeprazole 40 mg capsule,delayed 20 mg PO DAILY 05/10/23 09/12/23 release levothyroxine 75 mcg capsule 75 mcg PO DAILY 06/13/23 09/12/23 [id number] 1 tablet PO DAILY 06/30/23 09/12/23 tablet (Multivitamin 50 Plus tablet) polyethylene glycol 3350 17 17 g PO .PRN 09/12/23 09/12/23 gram/dose oral powder (Miralax) Allergies Allergy/AdvReac Type Severity Reaction Status Date / Time No Known Allergies Allergy Verified 09/11/23 11:26 Review of Systems Review of Systems: All systems reviewed & are unremarkable except as noted in HPI and below Constitutional: Constitutional: Reports no additional constitutional complaints Eyes: Eyes: Reports no additional eye complaints ENT: Reports as per HPI Cardiovascular: Cardiovascular: Reports no additional cardiovascular complaints, Denies chest pain and Denies dyspnea Respiratory: Respiratory: Reports no additional respiratory complaints, Denies chest congestion, Denies cough and Denies dyspnea Gastrointestinal: Gastrointestinal: Reports no additional gastrointestinal complaints, Denies abdominal pain, Denies nausea and Denies vomiting Musculoskeletal: Musculoskeletal: Reports no additional musculoskeletal complaints Integumentary/Breasts: Skin/Breast: Reports system reviewed and no additional complaints, except as docu Neurologic: Reports system reviewed and no additional complaints, except as documented Psychiatric: Psychiatric: Reports no additional psychiatric complaints Allergic/Immunologic: Allergic/Immunologic: Reports no additional allergic/immunologic complaints PMFSH Past Medical History Medical History Adrenal insufficiency Hx of breast cancer Hx of malignant neoplasm of nasal cavity Hypothyroidism Surgical History Surgical History History of right shoulder replacement Hx of hysterectomy Family History Family History Sibling Breast cancer Social History Social History Smoking status: Never smoker Alcohol intake: current Alcohol use details: occasional Substance use: never Substance use type: does not use Lack of Transportation: No Lack of Food: Never True Current Housing: I Have Housing Concerned About Future Housing: No Difficulty Paying Gas/Electric Bills: No Difficulty Paying for Meds: No Currently Unemployed: No Education: Master's Degree or Higher Difficulty w/ Childcare or Family Care: No
== END 2023-11-07 18:25 | disposition home or self-care (01) ==
PROVIDERS: Emergency Provider Nurse Practitioner; PCP Internal Medicine
DX: B37.0 Candidal stomatitis (principal); E03.9 Hypothyroidism, unspecified; Z85.3 Personal history of malignant neoplasm of breast
CPT/HCPCS: 99213; G0463

== ENCOUNTER 2023-12-12 15:36 | Emergency (ER) | payer MEDICARE, SELFPAY ==
[2023-12-12 15:47] VITALS: BP 150/104; PULSE 71; RESP 20; TEMP 36.4; O2SAT 100
--- NOTE | 2023-12-12 15:53 | ECG_ITS ---
Measurements Intervals [place] Rate: 67 P: 75 [place]: 152 QRS: 59 QRSD: 78 T: 57 QT: 398 QTc: 420 Interpretive Statements SINUS RHYTHM POSSIBLE LEFT ATRIAL ENLARGEMENT BORDERLINE ECG COMPARED TO ECG 01/14/2022 10:55:40 NO SIGNIFICANT CHANGES Electronically Signed On 12-12-2023 16:35:09 [employer] by Javy Macias D.O.
--- NOTE | 2023-12-12 16:30 | PC.NURSE ---
pt up to desk stating that she is going to leave. states does not drive at dark and doesnt want to be here until midnight.
== END 2023-12-12 16:30 | disposition left against medical advice (07) ==
PROVIDERS: Emergency Provider Emergency Medicine; PCP Internal Medicine
DX: R68.84 Jaw pain (principal)
CPT/HCPCS: 93005; 99199

== ENCOUNTER 2023-12-23 07:14 | Outpatient (CLI) | payer MEDICARE, SELFPAY ==
[2023-12-23 08:36] LABS: Eosinophils Absolute Auto 0.1 K/mm3 (0-0.3); Eosinophils Percent Auto 1.8 % (0-4.4); Hematocrit 38.3 % (37.0-47.0); Hemoglobin 12.4 g/dL (12.0-15.0); Immature Granulocyte Absolute 0.01 K/mm3 (0.00-0.031); Immature Granulocyte Percent A 0.3 % (0-0.5); Lymphocytes Absolute Auto 1.28 K/mm3 (0.9-3.2); Lymphocytes Percent Auto 32.2 % (18.3-44.2); Mean Corpuscular HGB Conc 32.4 g/dl (32-36); Mean Corpuscular Hemoglobin 30.2 pg (26-34); Mean Corpuscular Volume 93.4 fl (80-100); Mean Platelet Volume 8.5 fl (7.4-10.4); Monocytes Absolute Auto 0.5 K/mm3 (0.1-0.6); Monocytes Percent Auto 13.1 % (2.6-8.5); Neutrophils Absolute Auto 2.1 K/mm3 (1.3-6.7); Neutrophils Percent Auto 51.6 % (45.5-73.1); Platelet Count Result 205 k/mm3 (150-375); Red Cell Distribution Width 13.5 % (11.5-14.5)
[2023-12-23 08:46] LABS: Alanine Aminotransferase 16 U/L (6-35); Albumin Level 3.8 g/dL (3.5-5.1); Alkaline Phosphatase 60 U/L (38-126); Aspartate Amino Transferase 29 U/L (14-36); Bilirubin,Total 0.9 mg/dL (0.2-1.3); CRP < 0.5 mg/dL (<1.0)
[2023-12-23 09:17] LABS: Erythrocyte Sedimentation Rate 16 mm/hr (0-20)
== END 2023-12-23 07:15 | disposition home or self-care (01) ==
LOC: ANHLAB 07:20
PROVIDERS: PCP Internal Medicine; Visit Provider Internal Medicine
DX: D72.821 Monocytosis (symptomatic) (principal); E80.6 Other disorders of bilirubin metabolism; D72.819 Decreased white blood cell count, unspecified; M26.69 Other specified disorders of temporomandibular joint
CPT/HCPCS: 36415; 80076; 85025; 85652; 86140

== ENCOUNTER 2024-01-02 16:02 | Outpatient (CLI) | payer MEDICARE, SELFPAY ==
--- NOTE | ~2024-01-02 | CT_ITS ---
EXAMINATION: CT facial bones wo con DATE: 01/02/2024 16:25 INDICATION: Jaw pain. TECHNIQUE: Computed tomography (CT) of the facial bones and maxillofacial region was performed withou t intravenous contrast. Automated exposure control and iterative reconstruction technique were employ ed. The dose-length product was 294.67 mGy-cm. COMPARISON: CT maxillofacial 07/22/22 FINDINGS: There is mild mucosal thickening in the paranasal sinuses. There are likely changes of ocul ar lens replacement surgeries. There are restorations of some of the teeth. There is severe osteoarth ritis of right temporomandibular joint and mild osteoarthritis of left temporomandibular joint. There is severe cervical spondylosis. IMPRESSION: 1. Severe osteoarthritis of right temporomandibular joint and mild osteoarthritis of left temporomand ibular joint. Reviewed, dictated and finalized at location A. [employer] IMPRESSION: 1. Severe osteoarthritis of right temporomandibular joint and mild osteoarthrit is of left temporomandibular joint.
== END 2024-01-02 16:03 | disposition home or self-care (01) ==
LOC: ANHIMG 16:03
PROVIDERS: PCP Internal Medicine; Visit Provider Internal Medicine
DX: R68.84 Jaw pain (principal); M19.09 Primary osteoarthritis, other specified site
CPT/HCPCS: 70486

== ENCOUNTER 2024-01-28 10:54 | Emergency (ER) | payer MEDICARE, SELFPAY ==
[2024-01-28 11:08] VITALS: BP 118/64; PULSE 79; RESP 16; TEMP 36.6; O2SAT 100
--- NOTE | 2024-01-28 11:15 | ED.FEMALEGU ---
HPI - Female Genitourinary General Chief complaint: Urogenital-Female Stated complaint: frequent/burning urination Time Seen by Provider: 01/28/24 11:17 Source: patient and RN notes reviewed Mode of arrival: ambulatory Limitations: no limitations History of Present Illness HPI Narrative: 83-year-old female presented for complaint of burning with urination, frequency, urgency, and nocturia. She states symptoms are worsening over the past 2 weeks. Endorses recent constipation. denies hematuria, nausea, vomiting, abdominal pain, flank pain, diarrhea, fevers or chills. Scheduled with PCP in 1 week. Related Data Home Medications Medication Instructions Recorded Confirmed atorvastatin 20 mg tablet 20 mg PO DAILY 02/22/22 01/28/24 carvedilol 12.5 mg tablet 6.25 mg PO Q12H 02/22/22 01/28/24 cholecalciferol (vitamin D3) 625 625 mcg PO DAILY 02/22/22 01/28/24 mcg (25,000 unit) capsule cyclosporine 0.05 % eye drops in a 1 drp EACH EYE Q12H 02/22/22 01/28/24 dropperette (Restasis) anastrozole 1 mg tablet 1 mg PO DAILY 05/10/23 01/28/24 buspirone 5 mg tablet 5 mg PO BID 05/10/23 01/28/24 omeprazole 40 mg capsule,delayed 20 mg PO DAILY 05/10/23 01/28/24 release levothyroxine 75 mcg capsule 75 mcg PO DAILY 06/13/23 01/28/24 jdedkhetcseq-bdtrikbn-mtvhpt 1 tablet PO DAILY 06/30/23 01/28/24 tablet (Multivitamin 50 Plus tablet) polyethylene glycol 3350 17 17 g PO .PRN 09/12/23 01/28/24 gram/dose oral powder (Miralax) Allergies Allergy/AdvReac Type Severity Reaction Status Date / Time No Known Allergies Allergy Verified 01/28/24 11:02 Review of Systems Review of Systems: CONSTITUTIONAL: Denies body aches, fever, chills, or sweats. CARDIOVASCULAR: Denies chest pain, palpitations, or edema. RESPIRATORY: Denies cough or dyspnea. GASTROINTESTINAL: Denies abdominal pain, nausea, vomiting, or diarrhea. GENITOURINARY: Reports dysuria, frequency, urgency, denies hematuria, flank pain SKIN: Denies rash, itching, or wounds. MUSCULOSKELETAL: Denies back pain or myalgia. [facility] Past Medical History Medical History Adrenal insufficiency Hx of breast cancer Hx of malignant neoplasm of nasal cavity Hypothyroidism Surgical History Surgical History History of right shoulder replacement Hx of hysterectomy Family History Family History Sibling Breast cancer Social History Social History Smoking status: Never smoker Alcohol intake: current Alcohol use details: occasional Substance use: never Substance use type: does not use Lack of Transportation: No Lack of Food: Never True Current Housing: I Have Housing Concerned About Future Housing: No Difficulty Paying Gas/Electric Bills: No Difficulty Paying for Meds: No Currently Unemployed: No Education: Master's Degree or Higher Difficulty w/ Childcare or Family Care: No [facility] Spiritual care concerns: No Comments At time of signature, I have reviewed and agree with nursing past medical, surgical, social and family history unless otherwise noted. Please see nursing chart for further information. There is no relevant family history pertinent to the presenting complaint Exam Narrative: GENERAL: Well-appearing and in no acute distress. ENT: Mucous membranes pink and moist. NECK: Normal AROM. Supple. CHEST: No respiratory distress. Clear to auscultation. HEART: Regular rate and rhythm. ABDOMEN: Soft, nondistended, normal active bowel sounds. Tender to lower abd. No CVA tenderness SKIN: Warm, dry, no rash. NEURO: No focal deficits. Alert and oriented x3. Gait steady. PSYCH: Normal affect. Course Course Emergency Course: Patient is aware of diagnosis, understands a
== END 2024-01-28 11:34 | disposition home or self-care (01) ==
PROVIDERS: Emergency Provider Nurse Practitioner Family; PCP Internal Medicine
DX: N39.0 Urinary tract infection, site not specified (principal); B96.20 Unspecified Escherichia coli [E. coli] as the cause of diseases classified elsewhere; E03.9 Hypothyroidism, unspecified; Z85.3 Personal history of malignant neoplasm of breast; Z85.22 Personal history of malignant neoplasm of nasal cavities, middle ear, and accessory sinuses; Z96.611 Presence of right artificial shoulder joint
CPT/HCPCS: 81003; 87077; 87086; 87088; 87186; 99213; G0463

== ENCOUNTER 2024-02-05 14:54 | Outpatient (CLI) | payer MEDICARE, SELFPAY ==
[2024-02-05 15:26] LABS: Appearance Urine Clear (Clear); Bacteria Urine None Seen /hpf; Bilirubin Urine Negative (Negative); Blood Urine Negative (Negative); Color Urine Yellow (Yellow); Glucose Urine UA Negative (Negative); Ketones Urine Negative (Negative); Leukocyte Esterase Ur Trace LEU/UL (Negative); Nitrate Urine Negative (Negative); Non Pathogenic Casts 0-2; Protein Urine Negative (Negative); RBC Urine 0-2 /hpf (0-2); Specific Grav Ur 1.016 (1.001-1.035); Squamous Epithelial Cell Urine None Seen /hpf (Few); Urobilinogen Urine 0.2 mg/dL (<2.0); WBC Urine 0-5 /hpf (0-3); pH Urine 6.5 (5.0-9.0)
[2024-02-05 15:27] LABS: Add Urine Microscopic? YES
== END 2024-02-05 14:55 | disposition home or self-care (01) ==
LOC: ANHLAB 14:56
PROVIDERS: PCP Internal Medicine; Visit Provider Internal Medicine
DX: N39.0 Urinary tract infection, site not specified (principal)
CPT/HCPCS: 81001

== ENCOUNTER 2024-02-12 10:27 | Outpatient (CLI) | payer MEDICARE, SELFPAY ==
[2024-02-12 11:40] LABS: Anion Gap 2 mmol/L (8-16); Blood Urea Nitrogen 9 mg/dL (7-17); Calcium 9.5 mg/dL (8.4-10.2); Carbon Dioxide 33 mmol/L (22-30); Chloride 91 mmol/L (98-107); Estimated Glomerular Filt Rate > 60; Glucose 98 mg/dL (65-110); Phosphorus 3.7 mg/dL (2.5-4.5); Potassium 4.3 mmol/L (3.4-5.0); Sodium 126 mmol/L (137-145)
== END 2024-02-12 10:28 | disposition home or self-care (01) ==
LOC: ANHLAB 10:29
PROVIDERS: PCP Internal Medicine; Visit Provider Internal Medicine Nephrology
DX: E87.1 Hypo-osmolality and hyponatremia (principal)
CPT/HCPCS: 36415; 80069

== ENCOUNTER 2024-02-12 15:21 | Outpatient (CLI) | payer MEDICARE, SELFPAY ==
--- NOTE | ~2024-02-12 | US_ITS ---
US renal BI 02/12/2024 16:08 Procedure: Realtime transabdominal ultrasound of the kidneys and bladder. Indication: Frequent UTI Comparison: No prior studies for comparison. Findings: Renal echotexture is normal bilaterally without hydronephrosis, contour deforming mass or r enal calculus. The right kidney measures 9.3 cm and left kidney measures 9.2 cm. Bladder within norm al limits. Impression: 1: Unremarkable renal ultrasound. No stones, masses or hydronephrosis. Reviewed, dictated and finalized at location B. Impression: 1: Unremarkable renal ultrasound. No stones, masses or hydronephrosis.
== END 2024-02-12 15:22 | disposition home or self-care (01) ==
LOC: ANHIMG 15:25
PROVIDERS: PCP Internal Medicine; Visit Provider Internal Medicine
DX: N39.0 Urinary tract infection, site not specified (principal)
CPT/HCPCS: 36415; 76775; 80069

== ENCOUNTER 2024-04-08 15:25 | Outpatient (CLI) | payer MEDICARE, SELFPAY ==
[2024-04-08 15:52] LABS: Albumin Level 4.6 g/dL (3.5-5.1); Anion Gap 6 mmol/L (4-12); Blood Urea Nitrogen 12 mg/dL (7-17); Calcium 9.3 mg/dL (8.4-10.2); Carbon Dioxide 29 mmol/L (22-30); Chloride 94 mmol/L (98-107); Estimated Glomerular Filt Rate > 60; Glucose 97 mg/dL (65-110); Phosphorus 4.2 mg/dL (2.5-4.5); Potassium 4.3 mmol/L (3.4-5.0); Sodium 129 mmol/L (137-145)
== END 2024-04-08 15:26 | disposition home or self-care (01) ==
PROVIDERS: PCP Internal Medicine; Visit Provider Internal Medicine Nephrology
DX: E87.1 Hypo-osmolality and hyponatremia (principal)
CPT/HCPCS: 36415; 80069

== ENCOUNTER 2024-06-04 09:32 | Outpatient (CLI) | payer MEDICARE, SELFPAY ==
--- NOTE | 2024-06-04 09:34 | ECHO_ITS ---
Patient Info Name: Vanda Blancas Age: 84 years : 1940 Gender: Female Ht: 64 in Wt: 111 lbs BSA: 1.50 m2 HR: 67 bpm BP: 146 / 75 mmHg Heart Rhythm: Sinus Rhythm Technical Quality: Good Exam Date: 06/04/2024 9:43 AM Exam Location: Echo Lab Patient Status: Outpatient Admit Date: 06/04/2024 Staff Ordering Physician: Javy Macias DO Pattern Worker: Kathy Abraham RDCS Attending Provider: Javy Macias DO Referring Physician: Gilberto MANCILLA; Exam Type: CA echo doppler color flow Study Info Indications R53.83 - Other fatigue Complete two-dimensional, color flow and Doppler transthoracic echocardiogram is performed. Summary 1. Complete two-dimensional, color flow and Doppler transthoracic echocardiogram is performed. 2. Left ventricular chamber dimension is normal. 3. Left ventricular systolic function is hyperdynamic, estimated at >70%. 4. The left ventricular diastolic function is abnormal. 5. E/e' 25 is elevated. 6. Left atrial chamber dimension is moderately enlarged. 7. There is mild aortic valve sclerosis. 8. There is mild tricuspid valve regurgitation. 9. Mild pulmonary hypertension, estimated pulmonary arterial systolic pressure is 40 mmHg. Left Ventricle E/e' 25 is elevated. Left ventricular chamber dimension is normal. Left ventricular systolic function is hyperdynamic, estimated at >70%. The left ventricular diastolic function is abnormal. Right Ventricle Right ventricular systolic function is normal and with normal TAPSE 2.4 cm. Right ventricular chamber dimension is normal. Left Atria Left atrial chamber dimension is moderately enlarged. Right Atria Right atrial chamber dimension is normal. Aortic Valve The aortic valve is trileaflet. There is mild aortic valve sclerosis. There is no aortic valve stenosis. There is no aortic valve regurgitation. Pulmonic Valve There is no pulmonic regurgitation. Mitral Valve There is no mitral valve stenosis. There is no mitral valve regurgitation. Tricuspid Valve There is mild tricuspid valve regurgitation. Mild pulmonary hypertension, estimated pulmonary arterial systolic pressure is 40 mmHg. Pericardium/Pleural There is no pericardial effusion. Inferior Vena Cava Normal inferior vena cava with >50% collapse upon inspiration consistent with normal right atrial pressure, 5 mmHg. Aorta The aortic root size at the sinus of Valsalva is normal. Left Ventricular Outflow Tract Name Value Normal LVOT 2D LVOT Diameter 2.0 cm LVOT Doppler LVOT Peak Gradient 4 mmHg LVOT Mean Gradient 3 mmHg LVOT VTI 26 cm LVOT VTI/AV VTI Ratio 0.9 LVOT Stroke Volume 84 ml LVOT CO 5.8 l/min LVOT CI 3.9 l/min/m2 Pulmonic Valve Name Value Normal RVOT Doppler RVOT Peak Gradient
== END 2024-06-04 09:33 | disposition home or self-care (01) ==
PROVIDERS: PCP Internal Medicine; Visit Provider Internal Medicine Cardiovascular Disease
DX: R53.83 Other fatigue (principal); I08.3 Combined rheumatic disorders of mitral, aortic and tricuspid valves
CPT/HCPCS: 93306

== ENCOUNTER 2024-06-27 11:02 | Outpatient (CLI) | payer MEDICARE, SELFPAY ==
[2024-06-27 11:52] LABS: Hematocrit 36.6 % (37.0-47.0); Hemoglobin 12.2 g/dL (12.0-15.0); Mean Corpuscular HGB Conc 33.3 g/dl (32-36); Mean Corpuscular Hemoglobin 30.3 pg (26-34); Mean Platelet Volume 8.3 fl (7.4-10.4); Platelet Count Result 205 k/mm3 (150-375); Red Blood Count 4.02 M/mm3 (4.2-5.4); Red Cell Distribution Width 13.2 % (11.5-14.5); White Blood Count 4.5 K/mm3 (4.5-10.0)
[2024-06-27 12:08] LABS: Albumin Level 4.1 g/dL (3.5-5.1); Anion Gap 8 mmol/L (4-12); Blood Urea Nitrogen 10 mg/dL (7-17); Carbon Dioxide 30 mmol/L (22-30); Chloride 90 mmol/L (98-107); Estimated Glomerular Filt Rate > 60; Glucose 79 mg/dL (65-110); Phosphorus 3.2 mg/dL (2.5-4.5); Potassium 4.6 mmol/L (3.4-5.0); Sodium 128 mmol/L (137-145)
[2024-06-27 13:23] LABS: Folic Acid > 20.0 ng/mL (2.76->20)
== END 2024-06-27 11:03 | disposition home or self-care (01) ==
PROVIDERS: PCP Internal Medicine; Referring Provider Internal Medicine; Visit Provider Internal Medicine Nephrology
DX: E87.1 Hypo-osmolality and hyponatremia (principal); E03.9 Hypothyroidism, unspecified; R53.83 Other fatigue
CPT/HCPCS: 36415; 80069; 82607; 82746; 84443; 85027

== ENCOUNTER 2024-08-28 12:24 | Outpatient (CLI) | payer MEDICARE, SELFPAY ==
[2024-08-28 13:13] LABS: Albumin Level 4.6 g/dL (3.5-5.1); Anion Gap 4 mmol/L (4-12); Blood Urea Nitrogen 10 mg/dL (7-17); Calcium 9.6 mg/dL (8.4-10.2); Carbon Dioxide 31 mmol/L (22-30); Chloride 92 mmol/L (98-107); Estimated Glomerular Filt Rate > 60; Glucose 117 mg/dL (65-110); Phosphorus 4.1 mg/dL (2.5-4.5); Potassium 4.2 mmol/L (3.4-5.0); Sodium 127 mmol/L (137-145)
== END 2024-08-28 12:25 | disposition home or self-care (01) ==
LOC: ANHLAB 12:27
PROVIDERS: PCP Internal Medicine; Visit Provider Internal Medicine Nephrology
DX: E87.1 Hypo-osmolality and hyponatremia (principal)
CPT/HCPCS: 36415; 80069

== ENCOUNTER 2024-09-27 10:48 | Outpatient (CLI) | payer MEDICARE, SELFPAY ==
--- NOTE | ~2024-09-27 | US_ITS ---
EXAM: PELVIC ULTRASOUND HISTORY: Bloating COMPARISON: None FINDINGS: UTERUS: Surgically absent. RIGHT OVARY: Despite prolonged interrogation, the right ovary was not visualized. LEFT OVARY: Despite prolonged visualization, the left ovary was not visualized. No free fluid is identified within the pelvis. The bladder is appropriately distended, and otherwise unremarkable. IMPRESSION: Limited transabdominal evaluation of the pelvis without visualization of the bilateral adnexa. Patient was unable to tolerate the transvaginal examination. Reviewed, dictated and finalized at location A. TH PROMOTION OFFICER IMPRESSION: Limited transabdominal evaluation of the pelvis without visualization of the bi lateral adnexa. Patient was unable to tolerate the transvaginal examination.
== END 2024-09-27 10:49 | disposition home or self-care (01) ==
PROVIDERS: PCP Internal Medicine; Visit Provider Internal Medicine
DX: R14.0 Abdominal distension (gaseous) (principal)
CPT/HCPCS: 76856

== ENCOUNTER 2024-10-28 05:06 | Emergency (ER) | payer MEDICARE, SELFPAY ==
--- NOTE | ~2024-10-28 | CT_ITS ---
Noncontrast CT scan of the lumbar spine CLINICAL HISTORY: Back pain TECHNIQUE: Axial noncontrast imaging of the lumbar spine was performed. Sagittal and coronal reformat vic images were constructed. Dose reduction technique was used on this scan by utilizing automated ex posure control and iterative reconstruction technique. The dose-length product (DLP) was 194.66 mGy-c m. FINDINGS: There is no fracture or subluxation of the lumbar spine. Vertebral bodies maintain normal h eight and alignment. At L1-L2, there is no significant disc bulge or herniation. No spinal canal stenosis, cord compressio n, or neural foraminal narrowing. At L2-L3, there is no significant disc bulge or herniation. No spinal canal stenosis or neural forami nal narrowing. At L3-L4, there is mild disc bulge with mild facet arthropathy. No van central canal stenosis. Ther e is probable mild bilateral neural foraminal narrowing. At L4-L5, there is disc bulge with prominent facet/ligament flavum arthropathy, resulting in moderate spinal canal stenosis/thecal sac compression. There is probable moderate bilateral neural foraminal narrowing. At L5-S1, there is disc bulge and minimal. No spinal canal stenosis or definite neural foraminal narr owing. Paravertebral soft tissues are unremarkable. Impression: Moderate to advanced degenerative spondylosis at L4-L5, as detailed above. Additional minimal degenerative changes, as above. Reviewed, dictated and finalized at location M. E GAMES SUPERVISOR Impression: Moderate to advanced degenerative spondylosis at L4-L5, as detailed above. Additional minimal degenerative changes, as above.
[2024-10-28 05:13] VITALS: BP 163/82; PULSE 82; RESP 15; TEMP 37.1; O2SAT 100
[2024-10-28] MEDS: methocarbamoL 750 MG TABLET PO (05:59)
[2024-10-28] MEDS: IBUPROFEN 400 MG TABLET 800 MG PO (06:00)
[2024-10-28] MEDS: ACETAMINOPHEN 500 MG TABLET 1000 MG PO (06:00)
[2024-10-28 06:11] LABS: Basophils Percent Auto 0.9 % (0.2-1.2); Eosinophils Percent Auto 0.3 % (0-4.4); Hematocrit 36.2 % (37.0-47.0); Hemoglobin 12.2 g/dL (12.0-15.0); Immature Granulocyte Absolute 0.01 K/mm3 (0.00-0.031); Immature Granulocyte Percent A 0.3 % (0-0.5); Lymphocytes Absolute Auto 0.47 K/mm3 (0.9-3.2); Lymphocytes Percent Auto 13.4 % (18.3-44.2); Mean Corpuscular HGB Conc 33.7 g/dl (32-36); Mean Corpuscular Hemoglobin 30.2 pg (26-34); Mean Corpuscular Volume 89.6 fl (80-100); Mean Platelet Volume 8.2 fl (7.4-10.4); Monocytes Absolute Auto 0.9 K/mm3 (0.1-0.6); Monocytes Percent Auto 25.9 % (2.6-8.5); Neutrophils Absolute Auto 2.1 K/mm3 (1.3-6.7); Neutrophils Percent Auto 59.2 % (45.5-73.1); Platelet Count Result 167 k/mm3 (150-375); Red Blood Count 4.04 M/mm3 (4.2-5.4); Red Cell Distribution Width 12.9 % (11.5-14.5); White Blood Count 3.5 K/mm3 (4.5-10.0)
[2024-10-28 06:14] LABS: Add Urine Microscopic? NO; Appearance Urine Clear (Clear); Bilirubin Urine Negative (Negative); Blood Urine Negative (Negative); Color Urine Yellow (Yellow); Glucose Urine UA Negative (Negative); Ketones Urine Trace mg/dL (Negative); Leukocyte Esterase Ur Negative LEU/UL (Negative); Nitrate Urine Negative (Negative); Protein Urine Negative (Negative); Specific Grav Ur 1.016 (1.001-1.035); Urobilinogen Urine 0.2 mg/dL (<2.0)
[2024-10-28 06:22] LABS: Alanine Aminotransferase 18 U/L (6-35); Albumin Level 4.5 g/dL (3.5-5.1); Alkaline Phosphatase 65 U/L (38-126); Anion Gap 4 mmol/L (4-12); Aspartate Amino Transferase 36 U/L (14-36); Blood Urea Nitrogen 8 mg/dL (7-17); Carbon Dioxide 28 mmol/L (22-30); Chloride 93 mmol/L (98-107); Estimated CRCL calculation 43 ml/min; Estimated Glomerular Filt Rate > 60; Glucose 105 mg/dL (65-110); Potassium 4.4 mmol/L (3.4-5.0); Sodium 125 mmol/L (137-145)
[2024-10-28 06:55] VITALS: BP 128/70; PULSE 77; RESP 17; O2SAT 95
[2024-10-28 07:15] VITALS: BP 119/66; PULSE 76; RESP 19; O2SAT 96
--- NOTE | 2024-10-28 07:39 | ED_ITS ---
HPI - General Adult General Chief complaint: Back Pain/Injury Stated complaint: back pain, Time Seen by Provider: 10/28/24 05:29 History of Present Illness HPI narrative: this is an 84-year-old female presenting with lower back pain. 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 It is worse with movement. It is not associated with urinary retention, bowel incontinence or lower extremity edema. She did not have any falls. No history of cancer. She is not taking anything for pain. Related Data Home Medications Medication Instructions Recorded Confirmed atorvastatin 20 mg tablet 20 mg PO DAILY 02/22/22 09/10/24 cholecalciferol (vitamin D3) 625 625 mcg PO DAILY 02/22/22 09/10/24 mcg (25,000 unit) capsule cyclosporine 0.05 % eye drops in a 1 drp EACH EYE Q12H 02/22/22 09/10/24 dropperette (Restasis) buspirone 5 mg tablet 5 mg PO BID 05/10/23 09/10/24 levothyroxine 75 mcg capsule 75 mcg PO DAILY 06/13/23 09/10/24 maydjiqknklr-dqrljgtc-wfuwpk 1 tablet PO DAILY 06/30/23 09/10/24 tablet (Multivitamin 50 Plus tablet) polyethylene glycol 3350 17 17 g PO .PRN 09/12/23 09/10/24 gram/dose oral powder (Miralax) Allergies Allergy/AdvReac Type Severity Reaction Status Date / Time No Known Allergies Allergy Verified 09/09/24 11:04 [facility] Past Medical History Medical History Adrenal insufficiency Hx of breast cancer Hx of malignant neoplasm of nasal cavity Hypothyroidism Surgical History Surgical History History of right shoulder replacement Hx of hysterectomy Family History Family History Sibling Breast cancer Social History Social History Smoking status: Never smoker Alcohol intake: current Alcohol use details: occasional Substance use: never Substance use type: does not use Do You Feel Safe in your Home?: Yes Lack of Transportation: No Lack of Food: Never True Current Housing: I Have Housing Concerned About Future Housing: No Difficulty Paying Gas/Electric Bills: No Difficulty Paying for Meds: No Currently Unemployed: No Education: Master's Degree or Higher Difficulty w/ Childcare or Family Care: No [place] Gender identity (if verbalized by the patient): Female Spiritual care concerns: No Exam Narrative: APPEARANCE: No apparent distress. Head: atraumatic. EYES: EOMI, NOSE: Atraumatic NECK: midline L-spine tenderness and tenderness over the left paralumbar muscles, straight leg negative bilaterally RESPIRATORY: No increased rate of breathing Clear to auscultation CARDIOVASCULAR: RRR, ABDOMINAL: Non-distended soft nontender MUSCULOSKELETAl: No obvious deformities soft nontender NEURO: Alert. Cranial nerves 2-12 grossly intact. Sensation light touch, motor function cerebellar function intact for 4 extremities. Gait exam was normal. SKIN:: Warm, dry. Normal color PSYCHIATRIC: Normal affect Course Vital Signs Vital signs: Vital Signs Temperature 98.8 F 10/28/24 05:13 Pulse Rate 82 10/28/24 05:13 Respiratory Rate 15 10/28/24 05:13 Blood Pressure 163/82 H 10/28/24 05:13 Pulse Oximetry 100 10/28/24 05:13 Oxygen Delivery Room Air 10/28/24 05:13 Temperature 98.8 F 10/28/24 05:13 Pulse Rate 76 10/28/24 07:15 Respiratory Rate 19 10/28/24 07:15 Blood Pressure 119/66 10/28/24 07:15 Pulse Oximetry 96 10/28/24 07:15 Oxygen Delivery Room Air 10/28/24 05:13 Medical Decision Making [facility] Narrative Medical decision making narrative: -Course: a 84-year-old female presenting with back pain. CT showed degenerative changes. No neurologic deficits. History and physical most consistent with lower back strain. Patient received Motrin Tylenol instead her symptoms have improved. Patient will be discharged home with pain medication and muscle relaxers. Given return precautions primary care follow-up. -DDX includes but is not limited to: Lower back strain, compression fracture, muscle spasms -Independent interpretation of studies: screening lab work obtained. Metabolic panel showed chronic hyponatremia. this is not related to her symptoms today. Urinalysis not indicative infection CT L-spine showed degenerative changes. -Interventions:Motrin /tylenol -Shared decision making / Disposition: discharged -RX Tylenol robaxin Vital Signs Vital Signs: Vital Signs Temperature 98.8 F 10/28/24 05:13 Pulse Rate 82 10/28/24 05:13 Respiratory Rate 15 10/28/24 05:13 Blood Pressure 163/82 H 10/28/24 05:13 Pulse Oximetry 100 10/28/24 05:13 Oxygen Delivery Room Air 10/28/24 05:13 Temperature 98.8 F 10/28/24 05:13 Pulse Rate 76 10/28/24 07:15 Respiratory Rate 19 10/28/24 07:15 Blood Pressure 119/66 10/28/24 07:15 Pulse Oximetry 96 10/28/24 07:15 Oxygen Delivery Room Air 10/28/24 05:13 Lab Data 10/28/24 06:04 10/28/24 06:04 Labs: Lab Results 10/28/24 Range/Units 06:04 WBC 3.5 L (4.5-10.0) K/mm3 RBC 4.04 L (4.2-5.4) M/mm3 Hgb 12.2 (12.0-15.0) g/dL Hct 36.2 L (37.0-47.0) % MCV 89.6 (80-100) fl MCH 30.2 (26-34) pg MCHC 33.7 (32-36) g/dl RDW 12.9 (11.5-14.5) % Plt Count 167 (150-375) k/mm3 MPV 8.2 (7.4-10.4) fl Immature Gran % (Auto) 0.3 (0-0.5) % Neut % (Auto) 59.2 (45.5-73.1) % Lymph % (Auto) 13.4 L (18.3-44.2) % [place] % (Auto) 25.9 H (2.6-8.5) % Eos % (Auto) 0.3 (0-4.4) % Baso % (Auto) 0.9 (0.2-1.2) % Lymph # (Auto) 0.47 L (0.9-3.2) K/mm3 [place] # (Auto) 0.9 H (0.1-0.6) K/mm3 Eos # (Auto) 0.0 (0-0.3) K/mm3 Baso # (Auto) 0.0 (0.0-0.1) K/mm3 Abs Immat Gran (auto) 0.01 (0.00-0.031) K/mm3 Absolute Neuts (auto) 2.1 (1.3-6.7) K/mm3 Absolute Nucleated RBC 0.000 (0.0-0.012) K/mm3 Nucleated RBC % 0.0 (0.0-0.2) % Sodium 125 L (137-145) mmol/L Potassium 4.4 (3.4-5.0) mmol/L Chloride 93 L (98-107) mmol/L Carbon Dioxide 28 (22-30) mmol/L Anion Gap 4 (4-12) mmol/L BUN 8 (7-17) mg/dL Creatinine 0.70 (0.7-1.0) mg/dL Estim Creat Clear Calc 43 ml/min Estimated GFR > 60 (59 - ) Glucose 105 (65-110) mg/dL Calcium 9.0 (8.4-10.2) mg/dL Total Bilirubin 1.0 (0.2-1.3) mg/dL AST 36 (14-36) U/L ALT 18 (6-35) U/L Alkaline Phosphatase 65 (38-126) U/L Total Protein 7.0 (6.3-8.2) g/dL Albumin 4.5 (3.5-5.1) g/dL Urine Color Yellow (Yellow) Urine Appearance Clear (Clear) Urine pH 8.0 (5.0-9.0) Ur Specific M[place] 1.016 (1.001-1.035) Urine Protein Negative (Negative) mg/dL Urine Glucose (UA) Negative (Negative) mg/dL Urine Ketones Trace H (Negative) mg/dL Ur Blood (Man) Negative (Negative) Urine Nitrate Negative (Negative) Urine Bilirubin Negative (Negative) Urine Urobilinogen 0.2 (<2.0) mg/dL Leukocyte Esterase Rfl Negative (Negative) DULCE/UL Discharge Plan Discharge Clinical Impression: Low back pain Patient Disposition: Home, Self-Care Condition: Stable Instructions: Antibiotic Form, Acute Low Back Pain (ED) Additional Instructions: Please take Tylenol Robaxin for her back pain. Please follow-up with your primary care physician for further management. Return to ED if you are unable to urinate, developed bowel incontinence or weakness in her legs. Prescriptions: New acetaminophen 500 mg tablet 1,000 mg PO TID PRN (Reason: kerri) 7 Days Qty: 42 0RF methocarbamol 750 mg tablet 750 mg PO TID Qty: 30 0RF No Action buspirone 5 mg tablet 5 mg PO BID levothyroxine 75 mcg capsule 75 mcg PO DAILY polyethylene glycol 3350 [Miralax] 17 gram/dose powder 17 g PO .PRN atorvastatin 20 mg tablet 20 mg PO DAILY cholecalciferol (vitamin D3) 625 mcg (25,000 unit) capsule 625 mcg PO DAILY cyclosporine [Restasis] 0.05 % dropperette 1 drp EACH EYE Q12H Multivitamin 50 Plus Tablet 1 tablet PO DAILY famotidine 40 mg tablet 40 mg PO BID Qty: 60 3RF losartan 25 mg tablet 25 mg PO DAILY Qty: 90 2RF Follow-up/Referrals: Jacey Handley MD [Primary Care Provider] - 1 Week (Back pain )
[2024-10-28 07:57] VITALS: BP 122/67; PULSE 85; RESP 16; O2SAT 95
== END 2024-10-28 07:58 | disposition home or self-care (01) ==
PROVIDERS: Emergency Provider Emergency Medicine; PCP Internal Medicine
DX: M54.50 Low back pain, unspecified (principal); E03.9 Hypothyroidism, unspecified; E27.40 Unspecified adrenocortical insufficiency; Z96.611 Presence of right artificial shoulder joint; Z85.3 Personal history of malignant neoplasm of breast; Z85.22 Personal history of malignant neoplasm of nasal cavities, middle ear, and accessory sinuses; Z90.710 Acquired absence of both cervix and uterus; Z79.899 Other long term (current) drug therapy
CPT/HCPCS: 36415; 72131; 80053; 81003; 85025; 99284; A9270

== ENCOUNTER 2024-11-11 11:26 | Outpatient (CLI) | payer MEDICARE, SELFPAY ==
[2024-11-11 12:48] LABS: Basophils Percent Auto 0.3 % (0.2-1.2); Eosinophils Percent Auto 0.7 % (0-4.4); Hematocrit 36.8 % (37.0-47.0); Hemoglobin 12.1 g/dL (12.0-15.0); Immature Granulocyte Absolute 0.02 K/mm3 (0.00-0.031); Immature Granulocyte Percent A 0.3 % (0-0.5); Lymphocytes Absolute Auto 0.96 K/mm3 (0.9-3.2); Lymphocytes Percent Auto 16.6 % (18.3-44.2); Mean Corpuscular HGB Conc 32.9 g/dl (32-36); Mean Corpuscular Hemoglobin 29.9 pg (26-34); Mean Corpuscular Volume 90.9 fl (80-100); Mean Platelet Volume 8.2 fl (7.4-10.4); Monocytes Absolute Auto 0.7 K/mm3 (0.1-0.6); Neutrophils Percent Auto 70.1 % (45.5-73.1); Platelet Count Result 318 k/mm3 (150-375); Red Blood Count 4.05 M/mm3 (4.2-5.4); White Blood Count 5.8 K/mm3 (4.5-10.0)
[2024-11-11 13:14] LABS: Anion Gap 2 mmol/L (4-12); Blood Urea Nitrogen 15 mg/dL (7-17); Calcium 9.2 mg/dL (8.4-10.2); Carbon Dioxide 29 mmol/L (22-30); Chloride 96 mmol/L (98-107); Estimated Glomerular Filt Rate > 60; Glucose 89 mg/dL (65-110); Potassium 4.5 mmol/L (3.4-5.0); Sodium 127 mmol/L (137-145)
== END 2024-11-11 11:27 | disposition home or self-care (01) ==
LOC: ANHLAB 11:28
PROVIDERS: PCP Internal Medicine; Visit Provider Internal Medicine
DX: E87.1 Hypo-osmolality and hyponatremia (principal); D72.819 Decreased white blood cell count, unspecified
CPT/HCPCS: 36415; 80048; 85025

== ENCOUNTER 2024-11-22 10:15 | Outpatient (RCR) | payer MEDICARE, SELFPAY ==
--- NOTE | 2024-10-10 13:54 | OPREHPOC ---
Outpatient Therapy Plan of Care This is a Multidisciplinary Plan of Care that may contain components documented by all disciplines (PT, OT, and ST.) PT Problem 1 PT Problem #1 Knowledge Deficit PT Goal 1 Goal / Goal Update 1. Patient will perform independent HEP Target Visit 3 PT Problem 2 PT Problem #2 Pain PT Goal 1 Goal / Goal Update 1. Pelvic pain on exam no higher than 3/10 Target Visit 5 PT Problem 3 PT Problem #3 Impaired Functional ADLs PT Goal 1 Goal / Goal Update 1. Patient able to have BM 4 times per week 2. Patient will need to sit on toilet no more than 5 minutes for BM Target Visit 5
--- NOTE | 2024-10-10 13:54 | PTOPEVAL1 ---
Assessment and note entered by Kristan Harding DPT Evaluation Information Assessment Status Evaluation Diagnosis k59.00 ICD-10 Condition Codes (PT) Weakness R53.1,R10.2 Subjective Information Pt reports a history of constipation with worsening symptoms and had a bowel blockage found on colonoscopy in 2019. Diagnosed with redundant sigmoid colon. Pt has also had defecogram and diagnosed with small anterior and posterior rectoceles. Feels abdominal pressure and states she has to push to have a BM. Has been taking laxatives for years which will work for awhile and then stop. Similar experience with miralax. Reports recent difficulty with having any kind of solid BM, has had 1 over the past 7 days. May sit on the toilet 10-12 minutes. Denies any kind of fecal incontinence. Does report a lot of gas discomfort as well. Voids 7 times a day and 2- 3 more at night. Denies urinary incontinence. Can hold urge to void 30 minutes. Denies pain with urination. Pt has never been . Partial hysterectomy 40 years ago and history of endometriosis. Reports no b/b diagnoses. Pt states her constipation makes her feel miserable and will not go out in the community due to gas. States she feels a lot of anxiety. Diet: 12-16 ounces of coffee in the morning, concentrated james juice, electrolyte drink without caffeine, water periodically and infrequent alcohol. easy move tea for constipation at times. Breakfast is usually cereal or fruit, small lunch which varies, dinner usually a meat, vegetable, and pasta. Metamucil daily. Patient goal: be able to have a normal BM No follow up with MD scheduled. Reported Pain Level Pain Score 0: Self Report Assessment PT Clinical Summary The patient is presenting to skilled therapy with a history of chronic constipation and pelvic pain on exam. She presents with decreased hip/core strength and significantly increased pelvic floor muscle tone which are contributing to her pain and difficulty with BM. She will highly benefit from therapy to address her impairments in order to reduce pain and improve bowel frequency. Plan of Care Interventions Electrical Stimulation,Hot Pack/Cold Pack,Manual Therapy,Neuro Re-education,Patient/Caregiver Education,Therapeutic Activities,Therapeutic Exercise PT Services Indicated Yes Treatment Frequency and 1 time a week for 5 visits Duration These treatments will address the objective and functional deficits as defined above. The patient will be advanced safely and appropriately in order for the patient to progress towards his/her prior level of function. Additional exercises will be introduced and as well as a comprehensive home exercise program upon discharge, if needed, ?to ensure carryover of functional gains achieved in the clinic. This treatment plan has been reviewed and agreement upon by the patient.
--- NOTE | 2024-11-22 10:49 | PTOPDC ---
Assessment and note entered by Kristan Harding DPT Evaluation Information Assessment Status Discharge Diagnosis k59.00 ICD-10 Condition Codes (PT) Weakness R53.1,Pelvic and perineal pain R10.2 Subjective Information Pt reports improvements with therapy and is having more regular BM. Still using miralax and stool softener. Has had a BM every day over the last week and is not needing to sit on toilet for very long. Is not noticing discomfort from constipation recently. Reported Pain Level Pain Score 0: Self Report Assessment PT Clinical Summary The patient has made excellent progress in therapy . She reports BM daily over the last week and is not sitting on the toilet more than a few minutes. She does continue to have pelvic floor pain and increased muscle tone. Due to her progress, discharge is recommended at this time. She has been educated to continue HEP and follow up with MD and/or PT as needed. Plan of Care PT Services Indicated No
== END 2024-11-22 14:17 | disposition home or self-care (01) ==
LOC: ANHPT 10:15
PROVIDERS: PCP Internal Medicine
DX: K59.00 Constipation, unspecified (principal); R53.1 Weakness; R10.2 Pelvic and perineal pain
CPT/HCPCS: 97110; 97140; 97161; 97530

== ENCOUNTER 2024-12-18 22:49 | Emergency (ER) | payer MEDICARE, SELFPAY ==
--- NOTE | ~2024-12-18 | XR_ITS ---
EXAMINATION: XR chest 1V 12/19/2024 00:26 INDICATION: Dizziness PROCEDURE: AP view of the chest COMPARISON: Comparison to multiple prior studies sequentially, with oldest reviewed study dated 07/2021. FINDINGS: The lungs are clear. The cardiomediastinal silhouette is within normal limits. There are no pleural effusions. There is no pneumothorax suspected. There is a right shoulder arthroplasty. T he lungs are hyperinflated which is consistent with, but not diagnostic of chronic obstructive pulmon sudheer disease. There is apical pleural thickening/scarring. IMPRESSION: 1: NO ACUTE CARDIOPULMONARY DISEASE. Reviewed, dictated and finalized at location A. ICATION DEVELOPER
--- NOTE | ~2024-12-18 | CT_ITS ---
EXAMINATION: CT brain wo con DATE: 12/18/2024 23:46 INDICATION: headache, dizziness, tingling to all extremeties . TECHNIQUE: Computed tomography (CT) of the head was performed without intravenous contrast. The mA wa s adjusted according to patient size. Iterative reconstruction technique was employed. The dose-lengt h product was 681.00 mGy-cm. COMPARISON: 07/22/2022. FINDINGS: No acute intracranial hemorrhage or extra-axial fluid collection. No hydrocephalus, mass, or herniation. No acute ischemic infarct. Unremarkable dural venous sinus attenuation. No acute osseous abnormality. Retention cyst/polyp in the right maxillary sinus, the remaining aerated spaces are clear. Mild atrophy and chronic white matter change. Atherosclerotic intracranial calcification. Bilateral l ens replacements. Minimal right basal ganglia calcification. IMPRESSION: No acute intracranial process. Reviewed, dictated and finalized at location K. ILE SUPERVISOR
--- OUTSIDE RECORDS SUMMARY | 2024-12-18 22:51 | XMS_ITS | Encounter Summary ---
Author Organization [facility] Address [address] [place] [address] Phone Care Team Providers Care Shotblast Equipment Operator Name Role Phone Everett Arriaga MD Unavailable [phone] Jacey Handley MD Primary Care Provider [phone] Reason for Visit * Reason Onset Date Comments Canopy Call 08/09/2024 Encounter Details Date Type Department Care Team (Late st Contact Info) Description 08/09/2024 Telephone [facility] [address] [place] [address] Everett Arriaga MD [address] [place] [address] Canopy Call Social History Tobacco Use Types Packs/Day Years Used Date Smoking Tobacco: Never Smokeless Tobacco: Never Alcohol Use Standard Drinks/Week Comments Yes 2 (1 standard drink = 0.6 oz pur e alcohol) weekly PHQ-2 Answer Date Recorded Total Score - Questions 1-9 0 /0 06/2022 Comments No Sex and Gender Information Value Date Recorded Sex Assigned at Not on file Legal Sex Female 3:04 PM CDT Gender Identity Not on file Sexual Orientation Not on file documented as of this encounter Miscellaneous Notes * Telephone Encounter - Nuzhat Rudd RN - 08/12/2024 1:28 PM CDT Pt returned call to clinic. Pt will come in on 08/30 for labs and OV. * Telephone Encounter - Nuzhat Rudd RN - 08/12/2024 11:49 AM CDT Spoke with pt and relayed message below. Pt stated she was going to call her other doctor's office to see what labs they were going to draw on 08/27. Pt stated she would call clinic to inform us if they are the same labs Dr. Arriaga wants. Orders placed. * Telephone Encounter - Nuzhat Rudd RN - 08/12/2024 11:41 AM CDT Images from the original note were not included. Everett Arriaga MD Blunk, Jennifer A., RMA; [facility] Nurse Pool3 hours ago (8:40 AM) MW We can just get cbc, and cmp * Telephone Encounter - Kristel Ray RMA - 08/09/2024 3:41 PM CDT Patient would like to know what kind of labs she is having done on 08/30. She has another appointment on 08/27 and wants to make sure it is not the same labs. There are no labs ordered. Would you like any labs done? Document on 08/09/2024 3:41 AM by Everett Arriaga MD: General: Clinical question - Phone Nurse, and 1 call documented in this encounter Plan of Treatment Upcoming Encounters Date Type Department Care Team (Late st Contact Info) Description 02/28/2025 10:15 AM CDT Lab [facility] [address] [address] Lab, Cc [facility] 02/28/2025 11:00 AM CDT Ancillary Procedure [facility] [address] [address] 02/28/2025 11:30 AM CDT Office Visit [facility] [address] [address] Everett Arriaga MD [address] [place] [phone] documented as of this encounter Results * (ABNORMAL) CMP (COMPREHENSIVE METABOLIC PANEL) (08/30/2024 9:25 AM CDT) Glucose 97 70 - 105 mg/dL [facility] Blood Urea Nitrogen 9 7 - 25 mg/dL [facility] Creatinine 0.7 0.6 - 1.2 mg/dL [facility] Sodium 129(L) 136 - 145 mEq/L [facility] Potassium 4.8 3.5 - 5.1 mEq/L [facility] Chloride 90(L) 98 - 107 mEq/L [facility] Bicarbonate 30 21 - 31 mEq/L [facility] Total Bilirubin 1.2(H) 0.3 - 1.0 mg/dL [facility] Alk. Phosphatase 58 34 - 104 U/L [facility] Aspartate Aminotransferase 22 13 - 39 U/L [facility] Alanine Aminotransferase 12 7 - 52 U/L [facility] Total Protein 7.0 6.4 - 8.9 g/dL [facility] Albumin 4.5 3.5 - 5.7 g/dL [facility] Calcium 10.0 8.6 - 10.3 mg/dL [facility] Anion Gap 13.8 7.0 - 15.0 mEq/L [facility] Globulin 2.5 2.0 - 3.5 g/dL [facility] EGFR 85 >60 ml/min/1. 73m2 [facility] Comment: This eGFR is calculated using 2020 CKD-EPI Creatinine equation without race modifier based on the NKF-ASN task force recommendations Blood 08/30/2024 9:25 AM CDT Narrative [facility] - 08/30/2024 11:54 AM CDT Release to patient->Immediate IS THE PATIENT REQUIRED TO BE FASTING FOR 8 HOURS?->No us Everett Arriaga MD CHEMISTRY ORDERABLES Final Result [facility] [place] [address], documented in this encounter Visit Diagnoses Diagnosis 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, estrogen receptor positive (HCC)- Primary 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, estrogen receptor positive (HCC) documented in this encounter Additional Health Concerns Assessment Noted Time PHQ-9 Depression Total Score: 1 01/13/20 21 3:49 PM DIRECTOR SCRIPT documented as of this encounter Care Teams Shotblast Equipment Operator Relationship Specialty Start Date End Date Jacey Handley MD [address] [place] [address] PCP - General Internal Medicine 08/18/22 Everett Arriaga MD [address] [place] [phone] Consulting Physician Oncology 10/20/20 documented as of this encounter
--- OUTSIDE RECORDS SUMMARY | 2024-12-18 22:52 | XMS_ITS | Clinical Summary ---
Author Organization [facility] Address [address] [place] [address] Care Team Providers Care Licensed Practical Vocational Nurse Name Role Phone Marco Granados MD Primary Care Provider [phone] Source Comments [facility],non-owned Affiliates and Associated Physician Practices is amultiple site organization consisting of ambulatory clinics and hospital sitesin [place], [place], [place] and [place]. This disclosure is being madepursuant to the Care Everywhere program and may not contain all information available regarding this patient. Last updated 18.[facility] Active Problems Problem Noted Date Diagnosed Date Unspecified contact dermatitis due to other agen ts 10/28/2011 Family History Medical History Relation Name Comments Cancer Sister Allergy (Severe) Neg Hx CVA Neg Hx Cancer - Skin, Melanoma Neg Hx Cancer - Skin, Non Melanoma Neg Hx Eczema Neg Hx Hemophilia Neg Hx Psoriasis Neg Hx Rashes/Skin Problems Neg Hx Relation Name Status Comments Sister Social History Tobacco Use Types Packs/Day Years Used Date Smoking Tobacco: Never Alcohol Use Standard Drinks/Week Comments Yes 0 (1 standard drink = 0.6 oz pur e alcohol) Sex and Gender Information Value Date Recorded Sex Assigned at Not on file Gender Identity Not on file Sexual Orientation Not on file Plan of Treatment Health Maintenance Due Date Last Done Comments BONE DENSITY TESTING 1940 DTAP/TDAP/TD VACCINES (1 - Tdap) 02/20/1959 PNEUMOCOCCAL VACCINE 50+ (1 of 1 - PCV) 02/20/1990 ZOSTER VACCINE (1 of 2) 02/20/1990 Respiratory Syncytial Virus (RSV) Vaccine Pt: or over 60 yrs (1 - 1-dose 75+ series) 02/20/2015 COVID-19 VACCINE ( - 2023-2 5 season) 2024 INFLUENZA VACCINE (#1) 2024 DEPRESSION SCREENING 11/20/2024 MEDICARE AWV ? CALENDAR YEAR 2024 HEPATITIS B VACCINE Aged Out No longe r eligible based on patient's age to complete this topic HIB VACCINE Aged Out No longer eligi ble based on patient's age to complete this topic HPV VACCINE Aged Out No longer eligi ble based on patient's age to complete this topic MENINGOCOCCAL (Group B) VACCINE Aged Out No longer eligible based on patient's age to complete this topic MENINGOCOCCAL VACCINE Aged Out No silvia sánchez eligible based on patient's age to complete this topic Care Teams Licensed Practical Vocational Nurse Relationship Specialty Start Date End Date Marco Granados MD [address] [place] [address] PCP - General Internal Medicine 11/23/17
--- OUTSIDE RECORDS SUMMARY | 2024-12-18 22:52 | XMS_ITS | Clinical Summary ---
Author Organization [facility] Address [address], [facility] [address] [place] [address] Phone Care Team Providers Care Beverage Host Name Role Phone Everett Arriaga MD Unavailable [phone] Jacey Handley MD Primary Care Provider [phone] Allergies Active Allergy Reactions Criticality Noted Date Comments Chlorhexidine Hives Medium 01/01/2024 Cocamide Hives Medium 01/01/2024 Formaldehyde Hives Medium 01/01/2024 Phenoxyethanol Hives Medium 01/01/2024 Trolamine (Triethanolamine) Hives Medium 01/01/20 24 Medications atorvastatin (LIPITOR) 20 MG Tablet Take 20 mg by mouth daily. 01/25/2019 Active Psyllium 400 MG Capsule Fiber (psyllium husk) 0.4 gram capsule Take 1 capsule every day by oral route. Active cycloSPORINE (RESTASIS) 0.05 % Emulsion Place 1 Drop in affected eye(s) 2 times daily. Active levothyroxine (SYNTHROID) 75 MCG Tablet Take 75 mcg by mouth daily. Active Calcium Carbonate-Vitam in D (CALCIUM 600+D PO) Take by mouth 2 times daily. Active MULTIPLE VITAMIN PO Take by mouth. Active busPIRone (BUSPAR) 5 MG Tablet Take 5 mg by mouth 2 times daily. 08/15/2023 Active famotidine (PEPCID) 20 MG Tablet TAKE 1 TABLET BY MOUTH ONCE DAILY NEEDED FOR GERD Active losartan (COZAAR) 50 MG Tablet Take 1 Tablet by mouth. Active acetaminophen (TYLENOL) 500 MG Tablet Take 500 mg by mouth. Active docusate sodium (COLACE) 50 MG Capsule Take 50 mg by mouth. Active Simethicone (GAS RELIEF 80 PO) Take by mouth. Active polyvinyl alcohol (LIQUIFILM/MAURO FICIAL TEARS) 1.4 % Solution Place 1 Drop in affected eye(s) as needed. Active VITAMIN D PO Take by mouth. Active ASPIRIN PO Take by mouth. 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 08/21/2018 Hyperlipidemia 01/20/2017 Cerebrovascular accident 11/29/2016 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 Immunizations Immunization Administration Dates Next Due Covid-19, Mrna, Lnp-s, Pf, 3 0 Mcg/0.3 Ml Dose (Revolv) 01/15/2021,12/25/2020 Hepatitis A Vaccine 06/25/2019,03/19/2018 Hepatitis A, Live Attenuated 06/25/2019,03/19/20 18 Hepatitis B Vaccine 09/23/2002,04/23/2002,2001 Influenza Vaccine, Quadrivalent, PF 11/18/2021 Influenza, High-dose, Quadrivalent 09/23/2020 Influenza, Injectable, Quadrivalent 11/18/2021,0 06/25/2019,03/19/2018 Influenza, Seasonal, Injecta ble, Undefined 09/03/2022 Influenza, high-dose, trivalent, PF 09/23/2020 Pneumococcal Vaccine - 13 Valent 11/29/2016 Pneumococcal Vaccine Adult - 23 Valent 09/03/2019 RSV, Recombinant, Protein Sesay bunit Rsvpref, Adjuvant Recon (Arexvy) 11/29/2023 TD VACCINE 06/01/1998 TDAP Vaccine 11/09/2015,05/06/2003 Typhoid Vaccine 03/20/2018 Typhoid, ViCPs 03/20/2018 Varicella Vaccine Live 08/15/2020 Zoster Vaccine Recombinant 10/26/2020,,10/16/2020,2019 Family History Medical History Relation Name Comments Cancer Father Diabetes Mother Stroke Mother Diabetes Sister 1 No Known Problems Sister 2 Relation Name Status Comments Father Mother Sister 1 Sister 2 Alive Social History Tobacco Use Types Packs/Day Years Used Date Smoking Tobacco: Never Smokeless Tobacco: Never Tobacco Cessation:Counseling Given: No Alcohol Use Standard Drinks/Week Comments Yes 2 (1 standard drink = 0.6 oz pur e alcohol) weekly PHQ-2 Answer Date Recorded Total Score - Questions 1-9 0 06/2022 Comments No Sex and Gender Information Value Date Recorded Sex Assigned at Not on file Legal Sex Female 3:04 PM CDT Gender Identity Not on file Sexual Orientation Not on file Last Filed Vital Signs Vital Sign Reading Time Taken Comments Blood Pressure 136/72 08/30/2024 9:39 AM CDT Pulse 67 08/30/2024 9:39 AM CDT Temperature 36.6 ??C (97.8 ??F) 08/30/2024 9:39 AM CD T Respiratory Rate 18 08/30/2024 9:39 AM CDT Oxygen Saturation 99% 08/30/2024 9:39 AM CDT Inhaled Oxygen Concentration - - Weight 50.4 kg (111 lb 1.6 oz) 08/30/2024 9:39 A M CDT Height 152.4 cm (5') 08/30/2024 9:39 AM CDT Body Mass Index 21.7 08/30/2024 9:39 AM CDT Plan of Treatment Upcoming Encounters Date Type Department Care Team (Late st Contact Info) Description 02/28/2025 10:15 AM CDT Lab [facility] [address] [address] Lab, Cc [facility] 02/28/2025 11:00 AM CDT Ancillary Procedure [facility] [address] [address] 02/28/2025 11:30 AM CDT Office Visit [facility] [address] [place] [address] Everett Arriaga MD [address] [place] [address] Health Maintenance Due Date Last Done Comments Hepatitis C Virus (HCV) Screening 1940 Discussion re Stopping Mammograms 02/20/2015 Influenza Immunization (#1) 07/21/202410/22, 11/18/2021, 09/23/2020, Additional history exists SARS-COV-2 Immunization ( season) 2024 09/01/2022, 05/09/2022, 09/01/2021, Additional history exists Mammogram 02/12/2025 02/13/2024, 01/19, 02/02/2023, Additional history exists Td Immunization Every 10 Years (Adults With 1 Tdap) 11/09/2025 11/09/2015, 05/06/2003, 06/01/1998 DEXA Bone Density 11/23/2025 11/23/2023, , 10/25/2019 Hepatitis B Immunization Completed 002, 04/23/2002, 03/21/2002 DTaP/Tdap/Td Immunization Discontinued 2014, 05/06/2003, 06/01/1998 Pneumococcal Immunization (50+ years) Completed 09/03/2019, 11/29/2016 Pneumococcal Immunization Combined Discontinued 09/03/2019, 11/29/2016 Zoster Immunization Completed 10/26/2020, 10/22/2020, 10/16/2020, Additional history exists Respiratory Syncytial Virus (RSV) Immunization (Adult) Completed 11/29/2023 Meningococcal Immunization (ACWY) Aged Out No longer eligible based on patient's age to complete this topic Rotavirus Immunization Aged Out No lo nger eligible based on patient's age to complete this topic Procedures Procedure Name Priority Date/Time Associated Diagnosis Comments [facility] BONE DENSITOMETRY AXIAL SKELETON Routine 11/23/2023 9:58 AM CHUTE WORKER Encounter for monitoring aromatase inhibitor therapy from Last 3 Months or Most Recently Relevant to Health Maintenance Results * [facility] BONE DENSITOMETRY AXIAL SKELETON (11/23/2023 9:58 AM CHUTE WORKER) Anatomical Region Laterality Modality BODY N/A Other Narrative 11/23/2023 11:24 AM CHUTE WORKER EXAMINATION: [facility] BONE DENSITOMETRY AXIAL SKELETON INDICATIONS: Encounter for therapeutic drug level monitoring. ??Monitoring aromatase inhibitor therapy, osteoporosis, family history of osteoporosis, 1 inch height loss, calcium supplement use, Reclast use, thyroid medication use COMPARISON: This examination is compared to prior examination dated December 08, 2021. FINDINGS: Osteoporosis of the lumbar spine measuring 0.837 corresponding to 71 percent of that expected in a young adult with A T-score of -2.9 and a Z-score of -0.6. ??This has worsened when compared to prior examination of December 08, 2021. Low bone mass (osteopenia) of the left femoral neck measuring 0.809 corresponding to 78 percent of that expected in a young adult with a T-score of -1.6 and a Z- score of 0.9. Low bone mass (osteopenia) of the total left femoral bone mineral density value measuring 0.772 corresponding to 77 percent of that expected in a young adult with a T-score of -1.9 and a Z-score of 0.6. Low bone mass (osteopenia) of the right femoral neck measuring 0.852 corresponding to 82 percent of that expected in a young adult with a T-score of -1.3 and a Z- score of 1.3. Low bone mass (osteopenia) of the total right femoral bone mineral density value measuring 0.755 corresponding to 75 percent of that expected in a young adult with a T-score of -2.0 and a Z-score of 0.5. Low bone mass (osteopenia) of the total mean femoral bone mineral density value measuring 0.764 corresponding to 76 percent of that expected in a young adult with a T-score of -1.9 and a Z-score of 0.6. ??This has worsened when compared to prior examination dated December 08, 2021. IMPRESSION Osteoporosis. The bone mineral density of the lumbar spine has worsened when compared to prior examination of December 08, 2021. Electronically signed by: BRODY LARES MD Date of Signature: ??11/23/2023 11:24:30 Procedure Note Brody Lares MD - 11/23/2023 EXAMINATION: [facility] BONE DENSITOMETRY AXIAL SKELETON INDICATIONS: Encounter for therapeutic drug level monitoring. Monitoring aromataseinhibitor therapy, osteoporosis, family history of osteoporosis, 1 inchheight loss, calcium supplement use, Reclast use, thyroid medication use COMPARISON: This examination is compared to prior examination dated November. FINDINGS: Osteoporosis of the lumbar spine measuring 0.837 corresponding to 71percent of that expected in a young adult with A T-score of -2.9 and aZ-score of -0.6. This has worsened when compared to prior examination ofDecember 08, 2021. Low bone mass (osteopenia) of the left femoral neck measuring 0.809corresponding to 78 percent of that expected in a young adult with aT-score of -1.6 and a Z-score of 0.9. Low bone mass (osteopenia) of the total left femoral bone mineral densityvalue measuring 0.772 corresponding to 77 percent of that expected in ayoung adult with a T-score of -1.9 and a Z-score of 0.6. Low bone mass (osteopenia) of the right femoral neck measuring 0.852corresponding to 82 percent of that expected in a young adult with aT-score of -1.3 and a Z-score of 1.3. Low bone mass (osteopenia) of the total right femoral bone mineral densityvalue measuring 0.755 corresponding to 75 percent of that expected in ayoung adult with a T-score of -2.0 and a Z-score of 0.5. Low bone mass (osteopenia) of the total mean femoral bone mineral densityvalue measuring 0.764 corresponding to 76 percent of that expected in ayoung adult with a T-score of -1.9 and a Z-score of 0.6. This hasworsened when compared to prior examination dated December 08, 2021. IMPRESSION Osteoporosis. The bone mineral density of the lumbar spine has worsened when compared toprior examination of December 08, 2021. Electronically signed by: BRODY LARES MD Date of Signature: 11/23/2023 11:24:30 us Emma Martínez APRN, MANAGER COMMUNITY RELATIONS IMG DEXA ORDERABL ES Final Result from Last 3 Months or Most Recently Relevant to Health Maintenance Insurance MEDICARE C [facility] [address] Care Teams Beverage Host Relationship Specialty Start Date End Date Jacey Handley MD [address] [place] [address] PCP - General Internal Medicine 08/18/22 Everett Arriaga MD [address] [place] [phone] Consulting Physician Oncology 10/20/20
--- OUTSIDE RECORDS SUMMARY | 2024-12-18 22:52 | XMS_ITS | Data Portability ---
Author Organization [facility] Address [address] [place] [address] Care Team Providers Care Azure Principal Solution Specialist Name Role Phone KENNETH BOWLING OTHER SELINA LOWERY Medical Oncologist LUIS OTERO Supervisor Blood Donor Recruiters RENETTA HAMEED Nursery Technician MARTY MCGARRY Restoration Ecologist Assessment Encounter Date Assessment Date Assessment LastModified by Organization Details LastModified Time 01/20/2022 01/20/2022 planning to transition to new PCP doctor after February 18 Not available 01/20/2022 16:48:38 Plan of Treatment Reminders Order Date Submit Date Provider Last Modified By Organization Details Last Modified Time Details Appointments None recorded. Lab BMP, serum or plasma 2021 022 [facility], [facility]? [facility] [place], [address], 2 14:37:01 vitamin B12 + folate, serum or blood 2021 022 [facility], [facility]? [place], [address], 2 10:37:47 Referral None recorded. Procedures None recorded. Surgeries None recorded. Imaging None recorded. Medication Orders levothyroxi ne 75 mcg tablet 2020 021 [facility] [address] [place], [address], 13:23:45 losartan 50 mg tablet [address] [facility] [address] [place], [address], 14:03:59 sertraline 50 mg tablet 2021 022 [facility] [address] [place], [address], 13:46:13 carvedilol 6.25 mg tablet 2021 [facility] [address], [address] [place] [address], [address], 13:46:16 Patient TargetsNo targets recorded. Patient Instructions Encounter Date Encounter Id Patient Instructions Last Modified By Organization Details Last Modified Time 05/20/2021 [id number] follow needed in January 2022 Not available 05/20/2021 13:24:06 01/20/2022 [id number] she is still planning to change to PCP close to where she currenly lives Not available 01/20/2022 22:50:10 Reason for Referral None Reported. Results Created Date Observation Date Name Description Value Unit Range Abnormal Flag Note LastModifiedBy Organization Detail LastModifiedTime 04/27/2004/28/2021 BMP, serum or plasm a glucose 122 mg/dL 65-99 above high normal Not Available [facility] ([facility]) [address] [facility], [place], [address], 04/28/2021 06:13:11 04/27/2004/28/2021 BMP, serum or plasm a BUN 8 mg/dL 8-27 Not Available [facility] ([facility]) [address] [facility], [place], [address], 04/28/2021 06:13:11 04/27/2004/28/2021 BMP, serum or plasm a creatinine 0.88 mg/dL 0.57-1 .00 Not Available [facility] ([facility]) [address] [facility] [place], [address], 04/28/2021 06:13:11 04/27/20 21 04/28/2021 BMP, serum or plasm a eGFR if nonafricn AM 62 mL/mi n/1.7 3 >59 Not Available [facility] ([facility]) [address] [facility] [place], [address], 04/28/2021 06:13:11 04/27/20 21 04/28/2021 BMP, serum or plasm a eGFR if africn AM 71 mL/mi n/1.7 3 >59 Lab shorty curre ntly repor ts eGFR in compl iance with the curre nt recom menda tions of the Natio nal Kidne y Found ation . [facility] rp will updat e repor ting as new guide lines are publi shed from the NKF-A SN Task force . Not Available [facility] ([facility]) [address] [facility], [place], [address], 04/28/2021 06:13:11 04/27/2004/28/2021 BMP, serum or plasm a BUN/creatini ne ratio 9 12-28 below low normal Not Available [facility] ([facility]) [address] [place], [address], 04/28/2021 06:13:11 04/27/2004/28/2021 BMP, serum or plasm a sodium 130 mmol/ L 134-14 4 below low normal Not Available [facility] ([facility]) [address] [place], [address], 04/28/2021 06:13:11 04/27/20 21 04/28/2021 BMP, serum or plasm a potassium 4.5 mmol/ L 3.5-5. 2 Not Available [facility] ([facility]) [address] [facility] [place], [address], 04/28/2021 06:13:11 04/27/20 21 04/28/2021 BMP, serum or plasm a chloride 94 mmol/ L 96-106 below low normal Not Available [facility] ([facility]) [address] [facility], [place], [address], 04/28/2021 06:13:11 04/27/20 21 04/28/2021 BMP, serum or plasm a carbon dioxide, total 24 mmol/ L 20-29 Not Available [facility] ([facility]) [address] [place], [address], 04/28/2021 06:13:11 04/27/2004/28/2021 BMP, serum or plasm a calcium 9.6 mg/dL 8.7-10 .3 Not Available [facility] ([facility]) [address] [facility], [place], [address], 04/28/2021 06:13:11 04/28/20 21 04/20/2021 CT, brain , w/o contr ast No observ ation record ed. Not Available 2020 16:44:39 06/24/20 21 06/24/2021 CT, neck, soft tissu e, w/ contr ast No observ ation record ed. [facility] [address], [place], [address], 06/25/2021 15:48:59 07/05/20 21 mg diag W samreen bilat digi [facility] [address] [facility] [place] [address] This is a summar y report . The comple te report is availa ble in the patien t's medica l record . If you cannot access the medica l record , please contac t the sendin poornima harrison for a detail ed fax or copy. EXAMIN ATION: Digita l bilate ral diagno stic mammog asad with 3-D tomogr aphy ACCESS ION: [id number] EXAM DATE/T NNEKA: 9:56 AM REASON FOR EXAM: F/U Right breast cancer COMPAR ZHANE: 020, 019, 017, 2013 TECHNI QUE: Digita l diagno stic mammog jerica of both breast s was perfor med in additi on to 3-D Tomosy nthesi s techni que. This study was read with the assist ance of a Campus Quad er-aid ed detect ion system . TISSUE DENSIT Y: There are scatte red areas of fibrog landul ar densit y. FINDIN GS: Postop erativ e change in the right breast is seen with parenc hymal distor tion and surgic al clips noted. This is simila r to most recent prior study and sugges tive of post surgic al change . The left breast shows no suspic ious mass or suspic ious cluste r microc alcifi cation s. =====I MPRESS ION:== === Stable findin gs in the right breast likely due to postop erativ e change . ASSESS MENT: ACR BI-RAD S 3 - PROBAB LY BENIGN FINDIN G(S) - SHORT INTERV AL FOLLOW -UP SUGGES BELEM Recomm endati on: 1: Short interv al follow -up in 6 months . Right COMMEN TS: ====== ====== ====== ====== Referr ed By: BRANDAN SUÁREZ Electr onical ly Signed By: Anthony Murphy MD on 10:25 AM Interp reted By: Anthony Murphy MD, 10:24 AM [facility]? S [facility] [address] [facility], [place], [address], 07/05/2021 14:09:53 01/04/20 22 mg diag W samreen RT digi [facility] [place] [address] This is a summar y report . The comple te report is availa ble in the patien t's medica l record . If you cannot access the medica l record , please contac t the sendin poornima harrison for a detail ed fax or copy. Examin ation: Digita l right diagno stic mammog asad with 3-D tomosy nthesi s Access ion: [id number] Exam Date/T nneka: 12:31 PM Reason For Exam: Abnorm al mammog asad Right breast cancer 2019. Lumpec shaun. No radiat ion or chemot herapy . Breast cancer in a sister at age 60. Compar zhane: Prior mammog kellie from 2020 Techni que: Digita l diagno stic mammog jerica of the right breast was perfor med in additi on to 3-D Tomosy nthesi s techni que. This study was read with the assist ance of a Campus Quad er-aid ed detect ion system . Tissue densit y: The breast tissue is hetero geneou sly dense, which may obscur e small masses . Findin gs:Pos tsurgi jeramie change s in the deep tissue of the upper outer right breast have stable appear ance from prior study. Overal l parenc hymal patter n of the right breast is unchan ged from the compar zhane exams. No new area of focal asymme try, domina nt mass lesion , area of skin thicke bran, or cluste r of suspic ious appear ing calcif icatio ns in the breast to sugges t malign tita. ===== IMPRES CLARISSA: ===== 1. No new findin gs in the right breast to sugges t malign tita. Assess ment: ACR BI-RAD S 2 - BENIGN FINDIN G(S) Recomm endati on: 1:Rout ine Screen ing Bilate ral Commen ts: Patien t may return to annual screen ing mammog jerica unless earlie r reeval uation or contin ued diagno stic follow -up is desire d by treatpo morrisseyo n. Ordere d By: BRANDAN SUÁREZ Electr onical ly Signed By: Richmond henning MD on 12:57 PM Interp reted By: Richmond henning MD, 12:55 PM LEIDA [facility]? S Hospital [address] [place], [address], 01/06/2022 17:43:29 01/14/20 22 01/14/2022 XR, chest , 2 view No observ ation record ed. [address], [place], [address], 01/14/2022 14:58:43 Result Notes None recorded. 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 Not Available [facility] 0 04:34:47 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 bilatera lly Delia Harry MD Attn: Accounting ,[address] [facility], [place], [address] , [place] [facility] 09:44:57 Acute stress disorder 80964949 Active 2020 Delia Harry MD Attn: Accounting ,[address] [facility], [place], [address] , [place] [facility] 19:16:52 Hyponatr emia 14217930 Active 2021 Delia Harry MD Attn: Accounting ,[address] [facility], [place], [address] , [facility] 2 13:47:26 Hypothyr oidism 63463127 Active Not Available [facility] 0 04:34:48 Osteopor osis 82403613 Active Not Available [facility] 0 04:34:47 Headache 09126576 Active Not Available [facility] 0 04:34:47 Abdomina l pain 41627342 Active Not Available [facility] 0 04:34:48 Constipa tion 39368664 Active Not Available [facility] 0 04:34:48 Fatigue 98213606 Active Not Available [facility] 0 04:34:47 Epigastr ic pain 11810877 Active Not Available [facility] 0 04:34:48 Divertic ulosis of colon without divertic ulitis 689643324 Active Not Available [facility] 0 04:34:47 Cerebrov ascular accident 100952766 Active 2016 Not Available [facility] 0 04:34:48 Hyperlip idemia 70791265 Active 2016 Not Available [facility] 0 04:34:48 Arthriti s 1394783 Active 2016 Bilatera l hands Not Available [facility] 0 04:34:47 Problem Notes None recorded. 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 Delia Harry MD Attn: Accounting,[address] [facility], [place], [address], [facility] 10/18/2018 08:26:39 11/29/19 17 AIMS completed Felisa Thompson [place] 11/29/2016 15:08:32 11/29/19 17 SLUMS EXAM completed Felisa Thompson MA [place] - [facility] 11/29/2016 15:08:32 Hysterectomy completed ENDER RicoP-BC Attn: Accounting,[address] [facility], [place], [address], [facility] 07/23/2015 16:25:02 Imaging Results Imaging Date Name Status LastModified by Organiz ation Details LastModified Time 04/20/2021 CT, brain, w/o contrast completed Information not available 04/28/2021 16:44:39 06/24/2021 CT, neck, soft tissue, w/ contrast completed [facility] [address], [place], [address], 06/25/2021 15:48:59 07/05/2021 mg diag W samreen bilat digi completed [facility]? [address], [address], 07/05/2021 14:09:53 01/04/2022 mg diag W samreen RT digi completed LEIDA [facility]? [address], [address], 01/06/2022 17:43:29 01/14/2022 XR, chest, 2 view completed [address], [place], [address], 01/14/2022 14:58:43 Procedure Notes None recorded. Medical Equipment None Reported. Allergies No known drug allergies Medications Name Sig Start Date Stop Date Status Note LastModified by Organization Details LastModified Time acetamino phen/code ine #3 300-30 mgtabs 11/09 completed Not Available Not Available Not Available fluocinon luke 0.05 % oint active Not Available Not Available Not Available levothyro xine sodium 75 mcg tabs active Not Available Not Available Not Available voltaren 1 % gel active Not Available Not Available Not Available losartan 50 mg tablet Take 1 tablet by mouth once daily active Not Available Not Available No t Available celecoxib 200 mg capsule Take 1 capsule twice a day by oral route. 10/17 completed Not Available Not Available Not Available amoxicill in 500 mg capsule TAKE 1 CAPSULE BY MOUTH THREE TIMES DAILY UNTIL GONE 01/20 completed Not Available Not Available Not Available Miralax 17 gram/dose oral powder Take 17 g every day by oral route. active Not Available Not Available No t Available atorvasta tin 40 mg tablet 1 tab daily 03/21 completed Not Available Not Available Not Available anastrozo le 1 mg tablet TAKE 1 TABLET BY MOUTH ONCE DAILY active Not Available Not Available No t Available nystatin 100,000 unit/mL oral suspensio n Take 5 mL 4 times a day by oral route. 05/14 completed Not Available Not Available Not Available carvedilo l 6.25 mg tablet Take 1 tablet twice a day by oral route. active Not Available Not Available No t Available atorvasta tin 20 mg tablet TAKE 1 TABLET BY MOUTH ONCE DAILY active Not Available Not Available No t Available carvedilo l 12.5 mg tablet TAKE 1 TABLET BY MOUTH TWICE DAILY DIRECTED 02/20 completed Not Available Not Available Not Available naproxen 375 mg tablet active Not Available Not Available Not Available aspirin 325 mg tablet Take 1 tablet every day by oral route as directed . 05/14 completed Not Available Not Available Not Available ibuprofen 800 mg tablet 09/21 completed Not Available Not Available Not Available valacyclo vir 1 gram tablet 05/14 completed Not Available Not Available Not Available hydrocodo ne 5 mg-acetam inophen 325 mg tablet 07/30 completed Not Available Not Available Not Available ondansetr on HCl 4 mg tablet 04/11 completed Not Available Not Available Not Available doxycycli ne hyclate 50 mg capsule 11/09 completed Not Available Not Available Not Available meclizine 12.5 mg tablet Take 1 tablet 3 times a day by oral route as needed. 10/17 completed Not Available Not Available Not Available fluocinon luke 0.05 % topical ointment active Not Available Not Available Not Available fexofenad ine 180 mg tablet TAKE 1 TABLET BY MOUTH ONCE DAILY 02/15 completed Not Available Not Available Not Available acyclovir 400 mg tablet Take 1 tablet every 8 hours by oral route for 7 days. 05/14 completed Not Available Not Available Not Available ciproflox acin 500 mg tablet 08/05 completed Not Available Not Available Not Available peg-elect rolyte solution 420 gram oral solution 04/09 completed Not Available Not Available Not Available omeprazol e 40 mg capsule,d elayed release TAKE 1 CAPSULE BY MOUTH TWICE A DAY 30 MIN BEFORE MEALS active Not Available Not Available No t Available tramadol 50 mg tablet 03/05 completed Not Available Not Available Not Available triamcino lone acetonide 0.1 % topical cream 2020 active Not Available Not Available Not Avai lable levothyro xine 75 mcg tablet Take 1 tablet by mouth once daily 2021 active Not Available Not Available Not Avai lable amoxicill in 875 mg tablet TAKE 1 TABLET BY MOUTH EVERY 12 HOURS UNTIL GONE 02/19 completed Not Available Not Available Not Available famotidin e 20 mg tablet 09/03 completed Not Available Not Available Not Available prednisol one acetate 1 % eye drops,kymberly pension 04/09 completed Not Available Not Available Not Available metoclopr amide 5 mg tablet 1 tab daily 04/11 completed Not Available Not Available Not Available doxycycli ne monohydra te 100 mg capsule 04/17 completed Not Available Not Available Not Available cephalexi n 500 mg capsule active Not Available Not Available Not Available lisinopri l 10 mg tablet TAKE 1 TABLET BY MOUTH ONCE DAILY 06/18 completed Not Available Not Available Not Available metronida zole 0.75 % topical cream active Not Available Not Available Not Available losartan 25 mg tablet TAKE 1 TABLET BY MOUTH ONCE DAILY 10/07 completed Not Available Not Available Not Available sertralin e 25 mg tablet TAKE 1 TABLET BY MOUTH ONCE DAILY 09/21 completed Not Available Not Available Not Available omeprazol e 20 mg capsule,d elayed release 1 tab daily 04/11 completed Not Available Not Available Not Available hydrocort isone 2.5 % topical cream active Not Available Not Available Not Available methylpre dnisolone 4 mg tablets in a dose pack Use as directed . 08/05 completed Not Available Not Available Not Available ipratropi um bromide 42 mcg (0.06 %) nasal spray ADMINIST ER 2 SPRAYS INTO EACH NOSTRIL 3 TIMES A DAY 09/21 completed Not Available Not Available Not Available fluocinon luke 0.05 % topical cream APPLY TO THE AFFECTED AREA(S) BY TOPICAL ROUTE 2 TIMES PER DAY 03/05 completed Not Available Not Available Not Available losartan 100 mg tablet active Not Available Not Available Not Available fluticaso ne propionat e 50 mcg/actua tion nasal spray,kymberly pension USE 2 SPRAY(S) IN EACH NOSTRIL ONCE DAILY active Not Available Not Available No t Available sertralin e 50 mg tablet Take 1 tablet by mouth once daily 2021 active Not Available Not Available Not Avai lable doxycycli ne hyclate 100 mg tablet Start taking one tablet once daily 1-2 days before exposure , and continue until 4wk after exposure 04/17 completed Not Available Not Available Not Available tamoxifen 20 mg tablet TAKE 1 TABLET BY MOUTH ONCE DAILY active Not Available Not Available No t Available amoxicill in 875 mg-potass ium clavulana te 125 mg tablet 08/30 completed Not Available Not Available Not Available Typhim Vi 25 mcg/0.5 mL intramusc ular syringe 05/14 completed Not Available Not Available Not Available Restasis 0.05 % eye drops in a dropperet te INSTILL 1 DROP INTO EACH EYE TWICE DAILY active Not Available Not Available No t Available cyanocoba iain (vitamin B-12) 500 once a day active Not Available Not Available No t Available Vitamin D i tab daily active pt states Centrum Silver Vitamin daily includes 250 % Vitamin D Not Available Not Available Not Available Stool Softener 04/09 completed Not Available Not Available Not Available Centrum Silver active Not Available Not Available Not Available Calcium 600 with Vitamin D3 twice a day active with magnesiu m and zinc Not Available Not Available Not Available Vaqta (PF) 50 unit/mL intramusc ular suspensio n 09/03 completed Not Available Not Available Not Available Probiotic one daily 01/20 completed Not Available Not Available Not Available docusate sodium (bulk) 1 daily 09/03 completed Not Available Not Available Not Available Fiber (psyllium husk) 0.4 gram capsule Take 1 capsule every day by oral route. 09/03 completed Not Available Not Available Not Available Shingrix (PF) 50 mcg/0.5 mL intramusc ular suspensio n, kit 11/09 completed Not Available Not Available Not Available Vitals Date Recorded Body height Provider Name an d Address Organization Details Last Updated DateTime 09/21/2021 165.1 cm Tulio Bazan MA [facility] 2020 10:49:54 Date Recorded Body mass index (BMI) Body weight Provider Name and Address Organization Details Last Updated DateTime 09/21/2021 18.3 kg/m2 08840.56 g Tulio Bazan MA [facility] 09/21/2021 10:50:14 Date Recorded Oxygen saturation Oxygen saturation in Arterial blood by Pulse oximetry Provider Name and Address Organization Details Last Updated DateTime 09/21/2021 99 % 99 % Tulio Bazan MA [facility] 09/21/2021 10:50:17 Date Recorded Heart rate Provider Name an d Address Organization Details Last Updated DateTime 09/21/2021 69 /min Tulio Bazan MA [facility] 2020 10:50:21 Date Recorded Body temperature Provider Name a nd Address Organization Details Last Updated DateTime 09/21/2021 97.2 [degF] Tulio Bazan MA [facility] 09/21/2021 10:50:30 Date Recorded Body height Provider Name an d Address Organization Details Last Updated DateTime 10/07/2021 165.1 cm Jono Gunn MA [facility] 10/07/20 11:00:01 Date Recorded Body mass index (BMI) Body weight Provider Name and Address Organization Details Last Updated DateTime 10/07/2021 18.5 kg/m2 40251.85 g Jono Gunn MA [facility] 10/07/2021 11:00:16 Date Recorded Oxygen saturation Oxygen saturation in Arterial blood by Pulse oximetry Provider Name and Address Organization Details Last Updated DateTime 10/07/2021 99 % 99 % Jono Gunn MA [facility] 10/07/2021 11:00:27 Date Recorded Body temperature Provider Name a nd Address Organization Details Last Updated DateTime 10/07/2021 97 [degF] Jono Gunn MA [facility] 10/07/20 11:00:37 Date Recorded Heart rate Provider Name an d Address Organization Details Last Updated DateTime 10/07/2021 68 /min Jono Gunn MA [facility] 10/07/20 11:00:40 Date Recorded Body height Provider Name an d Address Organization Details Last Updated DateTime 01/20/2022 165.1 cm Gisselle Kenyon MA [facility] 01/21/20 15:44:55 Date Recorded Body mass index (BMI) Body weight Provider Name and Address Organization Details Last Updated DateTime 01/20/2022 18.7 kg/m2 43857.1 g Gisselle Kenyon MA [facility] 01/20/2022 15:47:45 Date Recorded Body temperature Provider Name a nd Address Organization Details Last Updated DateTime 01/20/2022 97.8 [degF] Gisselle Kenyon MA [facility] 022 15:49:12 Date Recorded Oxygen saturation Oxygen saturation in Arterial blood by Pulse oximetry Provider Name and Address Organization Details Last Updated DateTime 01/20/2022 99 % 99 % Gisselle Kenyon MA [facility] 01/20/2022 15:49:24 Date Recorded Heart rate Provider Name an d Address Organization Details Last Updated DateTime 01/20/2022 68 /min Gisselle Kenyon MA [facility] 01/21/20 15:49:29 Date Recorded Body height Provider Name an d Address Organization Details Last Updated DateTime 02/15/2022 165.1 cm Jono Gunn [facility] 02/16/20 11:35:56 Date Recorded Systolic blood pressure Diastolic blood pressure Provider Name and Address Organization Details Last Updated DateTime 09/21/2021 138 mm[Hg] 62 mm[Hg] Tulio Bazan MA [facility] 09/21/2021 10:50:05 Date Recorded Systolic blood pressure Diastolic blood pressure Provider Name and Address Organization Details Last Updated DateTime 09/21/2021 138 mm[Hg] 60 mm[Hg] Delia Harry MD Attn: [address] [place], [address], [facility] 09/21/2021 11:27:03 Date Recorded Systolic blood pressure Diastolic blood pressure Provider Name and Address Organization Details Last Updated DateTime 09/21/2021 124 mm[Hg] 78 mm[Hg] Delia Harry MD Attn: [address] [place], [address], [facility] 09/21/2021 11:30:23 Date Recorded Systolic blood pressure Diastolic blood pressure Provider Name and Address Organization Details Last Updated DateTime 10/07/2021 140 mm[Hg] 70 mm[Hg] Jono Gunn MA [facility] 10/07/2021 11:02:08 Date Recorded Systolic blood pressure Diastolic blood pressure Provider Name and Address Organization Details Last Updated DateTime 10/07/2021 132 mm[Hg] 70 mm[Hg] Delia Harry MD Attn: [address] [place], [address], [facility] 10/07/2021 11:19:00 Date Recorded Systolic blood pressure Diastolic blood pressure Provider Name and Address Organization Details Last Updated DateTime 01/20/2022 122 mm[Hg] 72 mm[Hg] Gisselle Kenyon MA [facility] 01/20/2022 15:51:39 Date Recorded Systolic blood pressure Diastolic blood pressure Provider Name and Address Organization Details Last Updated DateTime 01/20/2022 122 mm[Hg] 70 mm[Hg] Delia Harry MD Attn: [address] [place], [address], [facility] 01/20/2022 16:41:10 Social History Question Answer Notes LastModified by Organizat ion Details LastModified Time Tobacco Smoking Status Never Smoker Felisa Thompson MA [facility], [facility] 10/27/2014 14:15:07 Do You Have An Advance Directive? Yes Information not available 12/22/2017 What Is Your Level Of Alcohol Consumption? Occasional [email or web address] Information not available 07/23/2015 What Is Your Level Of Caffeine Consumption? Occasional Information not available 12/22/2017 What Type Of Diet Are You Following? REGULAR Information not available 12/22/2017 Which Illicit Or Recreational Drugs Have You Used? 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 No Information not available 12/22/2017 Hard Of Hearing Or Deaf In One Or Both Ears? No Information not available 12/22/2017 Legally Blind In One Or Both Eyes? No Information no t available 12/22/2017 Live Alone Or With Others? Alone Information not available 12/22/2017 Marital Status Single Informatio n not available 12/22/2017 What Was The Date Of Your Most Recent Tobacco Screening? 04/09/2021 Information not available 04/09/2021 How Many Children Do You Have? 0 Information not available 12/22/2017 Performs Monthly Self-breast Exam? No Information no t available 12/22/2017 Seat Belts Used Routinely Yes Information not available 12/22/2017 General Stress Level Low Information not available 12/22/2017 Do You Use Sunscreen Routinely? No Information not available 12/22/2017 Do You Or Have You Ever Used Any Other Forms Of Tobacco Or Nicotine? No Information not available 04/09/2021 Sex: Female Functional Status Question Answer Note LastModified by Organization D etails LastModified Time Are you able to care for yourself? Yes Information not available 12/22/2017 What is your exercise level? Moderate Information not available 12/22/2017 Mental Status None recorded. Family History Relationship Description Onset Age of this Age Resolved Age Notes LastModified by Organization Details LastModified Time Father Heart disease 82 Not available 2021 16:31:06 Father Lung mass 82 surgic al remova l-- got sepsis and Not available 01/20/2022 16:31:44 Mother Diabetes mellitus Not available 2021 16:32:02 Sister Diabetes mellitus Not available 2021 16:32:02 Sister Diabetes mellitus Not available 2021 16:32:02 Medical History No medical history recorded. Gynecological History Statement/Question Response Menses Monthly N Obstetrics History GPAL:G 0 P 0 0 0 0 Immunizations Vaccine Type Date Status Note Provider Nam e and Address Organization Details Recorded Time Hep A, live attenuated 9 completed Delia Harry MD Attn: [address] [facility], [place], [place], [address] [place] [address], [place] [facility] 01/20/2022 16:49:09 Hep A, live attenuated 8 completed Delia Harry MD Attn: Accounting,[address] [facility], [place], [place], [address] [place] [address], [place] [facility] 01/20/2022 16:49:09 Hep B, adult 2 completed Delia Harry MD Attn: Accounting,[address] [facility], [place], [place], [address] [place] [address], [place] [facility] 01/20/2022 16:49:09 Hep B, adult 2 completed Delia Harry MD Attn: Accounting,[address] [facility], [place], [place], [address] [place] [address], [place] [facility] 01/20/2022 16:49:09 Hep B, adult 2 completed Delia Harry MD Attn: Accounting,[address] [facility], [place], [place], [address] [place] [address], [place] [facility] 01/20/2022 16:49:09 Influenza, high-dose, quadrivalent, PF 0 completed Delia Harry MD Attn: Accounting,[address] [facility], [place], [place], [address] [place] [address], [place] [facility] 01/20/2022 16:49:09 zoster recombinant 0 completed Delia Harry MD Attn: Accounting,[address] [facility], [place], [place], [address] [place] [address], [place] [facility] 01/20/2022 16:49:09 zoster recombinant 0 completed Delia Harry MD Attn: Accounting,[address] [facility], [place], [place], [address] [place] [address], [place] [facility] 01/20/2022 16:49:09 COVID-19, mRNA, LNP-S, PF, 30 mcg/0.3 mL dose 1 completed Delia Harry MD Attn: Accounting,[address] [facility], [place], [place], [address] [place] [address], [place] [facility] 01/20/2022 16:49:09 COVID-19, mRNA, LNP-S, PF, 30 mcg/0.3 mL dose 1 completed Delia Harry MD Attn: Accounting,[address] [facility], [place], [place], [address] [place] [address], [place] [facility] 01/20/2022 16:49:09 COVID-19, mRNA, LNP-S, PF, 30 mcg/0.3 mL dose 1 completed Delia Harry MD Attn: Accounting,[address] [facility], [place], [place], [address] [place] [address], [place] [facility] 01/20/2022 16:49:09 Influenza, split virus, quadrivalent, preservative 1 completed Delia Harry MD Attn: Accounting,[address] [facility], [place], [address] [place] [address], [place] [facility] 01/20/2022 16:49:09 Pneumococcal conjugate PCV 13 7 completed Not Available [facility] 12/07/2019 02:33:03 Tdap 3 completed Delia Harry MD Attn: Accounting,[address] [facility], [place], [place], [address] [place] [address], [place] [facility] 01/20/2022 16:49:09 pneumococcal polysaccharide PPV23 9 completed Not Available [facility] 12/07/2019 02:38:42 Tdap 5 completed Not Available [facility] 12/07/2019 02:43:45 typhoid, parenteral 8 completed Delia Harry MD Attn: Accounting,[address] [facility], [place], [place], [address] [place] [address], [place] [facility] 01/20/2022 16:49:09 Past Encounters Encounter ID Performer Location Encounter Start Date Encounter Closed Date Diagnosis/Indication Diagnosis SNOMED-CT Code Diagnosis ICD10 Code Diagnosis Note [id number] Vir[address]ar [address] [address] 10/27/2014 14:00:52 10/27/2014 15:38:32 Headache [id number] shi's poss r/t sinus--lauren l try to treat as such MMSE normal--di scussed concerns. Watch for increased signs. concern for excess gas--try probiotics or phazyme [id number] Virgen Serna [address] [address] 07/23/2015 14:22:12 07/23/2015 16:35:05 Abdominal pain 00789265 some of sx seem to be reflux--wi ll treat w/ otc Nexium--sa mples given for 1 wk watch what she eats Constipation 38291568 st art Psyllium daily plus Probiotics cont colase--se e if correcting constipati on makes he feel better consider CT of Abd/pelvis if not better in 2 wks Fatigue 73833838 lab soon--chp and Vit D [id number] [facility] Teddy [address] [address] 11/09/2015 15:12:33 11/09/2015 16:24:15 Adult health examination 195106422 Z00.00 reviewed healthy lifestyle cont reg activity/ good diet Epigastric pain 42708174 R10.13 will check Hpylori back on PPI-- diet as solange [id number] Delia Teddy [address] [address] 08/02/2016 15:15:05 08/15/2016 13:13:37 Fatigue 74096923 R53.83 will check lab. reviewed diet. cont Vit B compex. reviewed meds from GI--need notes. [id number] Delia Teddy [address] [address] 11/29/2016 14:53:52 12/20/2016 16:12:25 Adult health examination 055561590 Z00.00 reviewed healthy lifestyle. discussed issues of memory. discussed balance/di zziness. Balance exercise handout. pt will schedule her awn mamm/bone dens Osteoporosis 57362372 M8 1.0 get bone density Shoulder joint pain 2679 37737 M25.519 reviewed notes from ORTHO--con sidering surg--disc ussed. cont ROM exercises Neuropathy 546942063 G62 .9 try B complex. good supporting shoes Ganglion cyst 97837727 M 67.40 believe lumps in hands are ganglion cysts--jeronimo cts not to do anything right now--will watch [id number] Delia Teddy , [facility]-[address] [address] 12/21/2016 09:33:58 01/20/2017 10:32:26 Osteoporosis 48437293 M81.0 reviewed bone density--r eally needs to be treated. info given on Reclast and Prolia--wi research them and get back to us. cont Ca++ w/ D Mammography abnormal 168 747534 R92.8 reviewed Mamm--need s Dx on L History of cerebrovascular accident without residual deficits 219448792 Z86.73 reviewed hosp records. she will cont w/ daily asa and statin as solange. s/w reluctant to take but will try to take 3 x wk at least. questions if some of sx were from dehydratio n--make sure she keeps hydrated. has May appt w/ spec. at [place] keep [id number] Marco Granados MD [address] [address] 04/11/2017 09:56:57 04/19/2017 11:06:16 Dizziness 599039954 R42 Check labs. Boost samples. Hand pain 74566067 M79.6 42 Check labs. [id number] Marco Granados MD [address] [address] 04/25/2017 09:53:39 05/01/2017 12:14:10 Hypothyroidism 79202463 E03.9 Hyperlipidemia 09810308 E78.5 Cerebrovas cular accident 844815713 I63.9 Dizziness 376589213 R42 Better with meclizine prn. Osteoarthritis 691648354 M19.90 Taking celebrex once daily, as needed, and helping a lot. Vitamin D deficiency 347 09640 E55.9 Low normal, continue vit d supplement ation, take with beneficial fats like coconut oil to help improve absorption . [id number] Marco Granados MD [address] [address] 08/25/2017 14:03:08 09/04/2017 16:22:50 Cerebrovascular accident 216653082 I63.9 One year in Nov 2017. Hypothyroidism 90986516 E03.9 Hyperlipidemia 39735251 E78.5 Osteoporosis 71613268 M8 1.0 Per DEXA scan done in 12/06, then she had one again in 07/06, shows improvemen t in T scores after being on OTC ca and vit d, continue. Fatigue 14372007 R53.83 Could be manifestat ion of depression , labs all rad normal. Unlikely to be sleep apnea. Will try low dose sertraline to see whether that helps. Lives by self, she never , never had kids. Shoulder pain 84596547 M 25.511 Chronic low back pain 27 1401854 M54.5 [id number] Marco Granados MD [address] [address] 10/17/2017 10:19:55 10/25/2017 16:04:35 Cerebrovascular accident 736734978 I63.9 One year in Nov 2017. Arthritis 1977244 M19.90 Hypothyroidism 10129256 E03.9 Hyperlipidemia 66993005 E78.5 Osteoporosis 36113003 M8 1.0 Per DEXA scan done in 12/06, then she had one again in 07/06, shows improvemen t in T scores after being on OTC ca and vit d, continue. Depressive disorder 3548 9007 F32.89 Continue sertraline . Synovial c yst of popliteal space 15172611 M71.22 Will try oral steroids, if no help, may need orthopedic referral later. Aphthous u lcer of mouth 136804730 K12.0 [id number] Marco Granados MD [address] [address] 12/22/2017 15:38:41 12/26/2017 14:40:05 Complaining of - postnasal drip 773384784 R09.82 Eczema 70474921 L30.9 [id number] Delia Harry MD [facility] [address] [place] [address] 05/14/2018 12:03:02 05/15/2018 09:07:40 Hypothyroidism 22792911 E03.9 to have lab check in July and follow up in the beginning of August Adult heal th examination 175693563 Z00.00 healthy and appropriat e-- risk for CVD with prior stroke History of cerebrovascular accident 440545827 Z86.73 I advised she take ASA 81 mg daily Hyperlipidemia 10725528 E78.5 I advised to decrease the atorvastat in ot since last lipids were exceptiona l and she is considerin g stopping med since she is opposed to taking meds in principal Chronic hoarseness 63388 16761 105 R49.0 I advised she try the nasal steroid daily for at least a month to treat the hoarseness -- probably related to PND. I did not see PND on exam -- she had seen ENT in the past [id number] Sana saunders [facility] [address] [place] [address] 08/17/2018 09:50:36 08/17/2018 12:50:26 Hypothyroidism 66808765 E03.9 to have lab check in July and follow up in the beginning of August Hyperlipidemia 60570190 E78.5 I advised to decrease the atorvastat in ot since last lipids were exceptiona l and she is considerin g stopping med since she is opposed to taking meds in principal Fatigue 78175278 R53.83 [id number] Delia Harry MD [facility] [address] [place] [address] 08/21/2018 10:14:53 08/22/2018 09:44:10 Hypothyroidism 92837674 E03.9 lab reviewed and copy to patient-- stable Hyperlipidemia 15330988 E78.5 I advised to continue the atorvastat in on Degenerati ve joint disease involving multiple joints 669066516 M15.9 consider surgical correction of the right shoulder-- letter for patient to continue with exercise program-- like [place] Senile osteopenia 201005 06 M85.80 wants a letter for exercise program coverage since not covered with her health insurance Total bili lee above reference range [id number] 43650 R17 this is stable for patient-- no further evaluation needed-- likely Gilbert's [id number] Delia Harry MD [facility] [address] [place] [address] 03/05/2019 09:08:10 03/05/2019 13:45:12 Hyperlipidemia 90097555 E78.5 no lipids added since doing well with chol checked at [facility] Abdominal pain 63649005 R10.9 no additional fiber tables and NO DAIRY for one month. You jeramie contin wit the PROBIOTIC and STOOL SOFTNER at this time. Likely IBS. You will call in a month for prescripti on trial of BENTYL if not better wtih dairy eliminatio n Degenerati ve joint disease involving multiple joints 147256082 M15.9 the arthritis lauren likely trigger intermitte nt pain-- stay active and note that inactivity does lead to greater pain and stiffness. Hypothyroidism 49305575 E03.9 lab reviewed and copy to patient-- stable Long-term drug therapy 734285323 Z79.581 [id number] Delia Harry MD [facility] [address] [place] [address] 08/05/2019 12:15:58 08/05/2019 14:53:26 Mass of right breast 0548483169 9977946 N63.10 I recommend a visit with Dr Whyte and to have [id number] Delia Harry MD [facility] [address] [place] [address] 09/03/2019 09:19:54 09/03/2019 11:31:36 Degenerative joint disease involving multiple joints 008735812 M15.9 the arthritis lauren likely trigger intermitte nt pain-- stay active and note that inactivity does lead to greater pain and stiffness. 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 She does not want to start any new medication s and would like to wait til after the surgery to think about therapy. 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.0 I would suggest RECLAST generic-- if affordable from [facility]- let me know Influenza vaccination declined 233949851 Z28.21 discussed and refused [id number] Delia Harry MD [facility] [address] [place] [address] 03/11/2020 11:54:30 03/11/2020 14:37:16 Hypothyroidism 29819165 E03.9 lab reviewed form 04/2019 -- stable-- will need retesting then-- unless test done per memory evaluation protocol Poor short -term memory 917551182 R41.3 memory referral per patient request Constipation 31283523 K5 9.00 management discussed and diet likely trigger-- since better through and worse since -- mainstay of treatment- - MIRALAX-- every day-- dose increase to TID until stools are soft / renewal of daily BMs [id number] Delia Harry MD [facility] [address] [place] [address] 03/26/2020 10:44:40 03/27/2020 12:02:04 Photodermatitis due to sun 607656811 L56.2 OK to use HYDROCORTI SONE 1% three times a day-- try this for a week and if not better-- call of see Dermatolog ist if not better. OK to use benedryl pill form-- not cream--at bedtime for itching [id number] Delia Harry MD [facility] [address] [place] [address] 08/17/2020 14:01:37 08/17/2020 18:21:15 Paresthesia of lower extremity 184475323 R20.2 this may be a side effect related to the anastrazol e but the benefit outweighs this as a risk-- I would recommend continuing treatment Degenerati ve joint disease involving multiple joints 159053102 M15.9 Long-term drug therapy 805957013 Z79.899 if the lab testing is negative-- will need to X RAY the areas of pain Hypothyroidism 29801383 E03.9 lab reviewed -- will need retesting tomorrow History of malignant neoplasm of breast 082273076 Z85.3 [id number] [place] [address] [place] [address] 11/09/2020 10:51:32 11/09/2020 15:53:09 Paresthesia of lower extremity 798125812 R20.2 again , this may be a side effect related to the anastrazol e but the benefit outweighs this as a risk-- I would recommend continuing treatmentb 12 and folate normal Dupuytren' s disease of palm 429789385 M72.0 seeing hand surgeon [id number] Delia Harry MD [facility] [address] [place] [address] 01/19/2021 09:02:09 01/20/2021 12:00:02 Acute low back pain 008730312 M54.5 I advise to get the XRAYs completed and will make plans pending outcome Pain in ri ght hip joint 8442761935 33268 M25.551 xray ordered and patient to pospone any nerve testing until after the xrays-- the feet numbness persists and the testing was not completed in Nov as scheduled originally due to a lost order at [facility]-- if retesting advised-- she wants to have the test done elsewhere [id number] Delia Harry MD [facility] [address] [place] [address] 04/09/2021 13:29:49 04/12/2021 12:31:11 Acute stress disorder 80374761 F43.0 I offered counseling or half-way and declined-- she agrees to start low dose sertraline and follow up in one month for reassessme nt to see if med change or dose adjustment will be needed [id number] Delia Harry MD [facility] [address] [facility] [address] [place] [address] 04/27/2021 14:21:44 04/28/2021 14:58:42 Long-term drug therapy 185036051 Z79.899 if the lab testing ordered since new start AKIL inhibitor. Will get records from [facility] ER visits Acute stress disorder 67 481837 F43.0 I offered counseling or half-way and declined-- she agrees to increase the dose sertraline since still worrying and not herself and troubled with sleeping. She is to follow up in one month for reassessme nt to see if med change or dose adjustment will be needed Benign ess ential hypertension 3593936 I10 no dose change in LISINOPRIL and will re-evaluat e in one week-- will get the reports from the ER [id number] Delia Harry MD [facility] [address] [facility] [address] [facility] [place] [address] 05/20/2021 08:56:53 05/20/2021 16:13:55 Acute stress disorder 09822493 F43.0 she is feeling better and she agrees to taper the dose sertraline -- I advised 25 mg daily for another week ( started taper on 05/12 per patient case)-- and then take 25 mg every other day for 14 days-- then stop. If anxiety increases- - she will contact office to restart sertraline 25 mg daily Hypothyroidism 01061124 E03.9 lab reviewed -- will need retesting tomorrow [id number] Delia Harry MD [facility] [address] [facility] [address] [place] [address] 09/21/2021 10:30:29 09/21/2021 15:49:44 Benign essential hypertension 3330792 I10 dose change in LOSARTAN to 50 mg and will re-evaluat e in two weeks Generalize d anxiety disorder 20656832 F41.1 I advised her to cont taking sertraline for at least 6 weeks to evaluate it's effect on anxiety-- do not stop taking this med-- and take it daily Osteoporosis 92943036 M8 1.0 [facility] plans to stop taking RECLASt-- will need to re-evaluat e with DEXA to reassess bone density ( last check was Oct 2019) [id number] Delia Harry MD [facility] [address] [facility] [place] [address] 10/07/2021 10:47:59 10/08/2021 10:45:26 Acute stress disorder 84800719 F43.0 she is feeling better and she agrees to taper the dose sertraline - now to start sertraline 25 mg daily. Follow up in 3 mo with plan to transition off med if continues to improve with adjustment disorder Benign ess ential hypertension 5473237 I10 advised no dose change in LOSARTAN 50 mg and will re-evaluat e with plan to change in 3 months back to 25 mg daily if BP well controlled -- <150/>90-- goal 130/80. No interest in lowering BP less than 100 systolic Adjustment disorder with anxious mood 82424436 F43.22 she is feeling better and she agrees to taper the dose sertraline - now to start sertraline 25 mg daily. Follow up in 3 mo with plan to transition off med if continues to improve with adjustment disorder [id number] Delia Harry MD [facility] [address] [facility] [place] [address] 01/20/2022 15:38:29 01/21/2022 14:29:02 Essential hypertension 84285692 I10 no change in the dose of the LOSARTAN 100 mg dialy due to max benefit after 14 days of this current dose-- will reassess after co nt to take and record home BP readingsho me monitor was tested today and accuracy was very goodI advised ER follow up with cardiologi st at [facility] and I advised Dr Alta Santamaria-- she has name and contact informatio n and prefers to set up appointmen t with cardiologi st herself Hyponatremia 48625338 E8 7.1 follow up from ER sodium of 131 needed Unsteady when walking 22 996076 R26.89 cause not clear---ab le to walk outdoors with her sister for exercise [id number] Delia Harry MD [facility] [address] [facility] [place] [address] 02/15/2022 09:55:49 02/15/2022 17:43:50 Essential hypertension 01545795 I10 cont to take and record home BP readingsco nt with the carvedilol 6.25 mg BID ( instead of cutting dose in 11/21)cont home monitor was tested today and accuracy was very goodget up valentinadrin k plenty of fluidssee cardiologi st as arranged in a week Acute stress disorder 67 748206 F43.0 she is feeling better Follow up in 3 mo with plan to transition off med if continues to improve with adjustment disorder Hyponatremia [id number] E8 7.1 improving and electrolyt es reviewed with the sodium/ chloride and anion gap levels as low-- since improving- - would recommend to recheck in 3 months Health Concerns Section Related Observation LastModified by Organization Detai ls LastModified Time None Recorded Concern Status LastModified by Organization Details LastModified Time None Recorded Advance Directives Directive Y: Payers Encounter Date Sequence Insurance Name Policy Number Policy Wheeler Covered Member ID Wheeler Member ID Guarantor Name 05/20/2021 2 [employer] (MEDICARE SUPPLEMENT) PLAN N Vanda Blancas [id number] Vanda Blancas 05/20/2021 2 [place] Vanda Blancas [id number] Vanda Blancas 09/21/2021 2 [employer] [place] (MEDICARE SUPPLEMENT) PLAN N Vanda Blancas [id number] Vanda Blancas 09/21/2021 2 [place] Vanda Blancas [id number] Vanda Blancas 10/07/2021 2 [employer] [place] (MEDICARE SUPPLEMENT) PLAN N Vanda Blancas [id number] Vanda Blancas 10/07/2021 2 [place] Vanda Blancas [id number] Vanda Blancas 01/20/2022 2 [place] Vanda Blancas [id number] Vanda Blancas 01/20/2022 1 [facility] (MEDICARE REPLACEMENT/AD VANTAGE - HMO) [id number] Vanda Blancas [id number] Vanda Blancas 02/15/2022 1 [facility] (MEDICARE REPLACEMENT/AD VANTAGE - HMO) [id number] Vanda Blancas [id number] Vanda Blancas Notes Date Note Type Note Provider Name and Address Organization Details Recorded Time 1 text/html Anxiety/DepressionReporte d bypatient.Quality:symptom s improved Severity:denies suicidal ideations; able to maintain relationships; does not interfere with activities of daily living; doesnt have the energy she use to have Duration:symptoms lasting over 2 weeks Onset/Timing:still present Context:no major life stressors Modifying Factors:medications as directed (would like to discuss would like to cut back on the sertraline) Associated Symptoms:denies homicidal ideations; no significant weight gain; no significant weight loss; no visual/auditory hallucinations; no delusions; no shortness of breath; no crying spells; no panic; no isolation; appetite good; energy good; no apathy; maintaining functionality;anxiety;dep ression;belching(extreme amount);headaches(lighthe adedness sometimes); she reports moving and house selling-- will hear about that tomorrowHypertension F/UReported bypatient.Associated Symptoms:no dizziness; no chest pain; no shortness of breath; no palpitations; no edema; no calf pain with exertion;lightheadedness Lifestyle:regular exercise; exercises 7 times/week; exercises for 30-60 minutes/day; limiting/avoiding salt Medications:taking medications as directed; no side effects from medication; checks blood pressure at home, range: (this morning 135/84)Notes:she noted intermittent feeling of light lheaded when getting up-- better wtih rest. No chest pain with the lightheadedness Went over medications with pt pt states that she will need refills on todays visit. Pt would like to start cutting back on sertraline and would like to discuss on todays visit. Delia Harry MD Attn: Accounting,[address] [place], [address], [facility] 05/20/2021 13:24:39 1 text/html Hypertension F/UReported bypatient.Associated Symptoms:chest pain; pt states that sometimes when standing up she has to move around a little to get stabilized Medications:not taking medications as directed(taking more cause its been higher, not sure about side affects)Notes:has diary of readings at home-- after relaxing day--she noted systolic BP above 140 at home-- forgot to bring in her diary today BP f/u Delia Harry MD Attn: Accounting,[address] [facility], [place], [address], [facility] 09/21/2021 13:20:02 1 text/html Hypertension F/UReported bypatient.Associated Symptoms:no dizziness; no lightheadedness; no chest pain; no shortness of breath;palpitations; thinks sertraline is causing shakiness; balance is off and she stumbles a lot Medications:not taking medications as directed(taking more cause its been higher, not sure about side affects)Rash/Skin LesionReported bypatient.Location:face (nose) Quality:red;generalized Severity:mild Duration:has noted for 1-2 months; t Context:no new detergents or skin products; no one else with similar rash; not scratching Alleviating Factors:nothing gives relief; tried metronidazol to help get rid of it no luck Aggravating Factors:nothing makes it worse Delia Harry MD Attn: Accounting,[address] [facility], [place], [address], [facility] 10/07/2021 19:07:54 2 text/html Hypertension F/UReported bypatient.Associated Symptoms:no shortness of breath; no edema;dizziness;lighthead edness;chest pain(tightness); pt states that sometimes when standing up she has to move around a little to get stabilized Lifestyle:regular exercise; exercises 7 times/week; exercises for 15-20 minutes/day Medications:taking medications as directed; no side effects from medication; checks blood pressure at home, range:Notes:has diary of readings at home-- after relaxing day--she noted systolic BP above 150/96 at home pt was at the ER on 01/14/22 for chest pain--pt said that she been shaky and has had tingling in her fingers and toespt also is been aching all over.pt goes to the cancer doctor tomorrow and said thatif there is any blood work that you need done give it to her and they will get it done Delia Harry MD Attn: Accounting[address], [place], [address], [facility] 01/20/2022 22:51:36 2 text/html Hypertension F/UReported bypatient.Associated Symptoms:no shortness of breath; no edema;dizziness;lighthead edness;chest pain(tightness); pt states that sometimes when standing up she has to move around a little to get stabilized, she will see [employer] 02/22/22 Lifestyle:regular exercise; exercises 7 times/week; exercises for 15-20 minutes/day Medications:taking medications as directed;side effects from medications(numbness hand new med); checks blood pressure at home, range:Notes:no answer at 12:15 pmcalled back for appointmentplans to see Dr. Macias next [id number] thinks she is go over test results. Delia Harry MD Attn: Accounting,[address] [facility], [place], [address], [facility] 02/15/2022 13:47:36 OBGyn Episode No OBEpisode recorded.
--- OUTSIDE RECORDS SUMMARY | 2024-12-18 22:52 | XMS_ITS | Clinical Summary ---
Author Organization [facility] Address [address] [place] [address] Care Team Providers Care Correspondence Representative Name Role Phone Jacey Handley MD Primary Care Provider [phone] Elijah Palumbo MD Unavailable [phone] Truman Dillon MD Unavailable [phone] Davin Madsen MD Unavailable [phone] Allergies Active Allergy Reactions Criticality Noted Date Comments Chlorhexidine Hives Medium 01/01/2024 Cocamidopropyl Hydroxysultaine Hives Medium 01/01 Formaldehyde Hives Medium 01/01/2024 Phenoxyethanol Hives Medium 01/01/2024 Triethanolamine Hives Medium 01/01/2024 Medications cycloSPORINE (RESTASIS) 0.05 % ophthalmic emulsion Active levothyroxine (SYNTHROID) 75 mcg tablet levothyroxine sodium 75 mcg tabs Active anastrozole (ARIMIDEX) 1 mg tablet Take by mouth daily Active cholecalciferol (VITAMIN D-3) 1000 unit tablet Take 1 tablet (1,000 Units total) by mouth daily Active calcium carbonate (CALCIUM 500 ORAL) Take by mouth Active folic acid/multivit-m in/lutein (CENTRUM SILVER ORAL) Take by mouth Active carvediloL (COREG) 6.25 mg tablet Take 1 tablet (6.25 mg total) by mouth 2 (two) times a day with meals Active meloxicam (MOBIC) 15 mg tabletIndicatio ns:Chronic right shoulder pain Take 0.5 tablets (7.5 mg total) by mouth daily 30 tablet 3 Active Additional Information Patient not taking.Reported on 07/23/2024 amitriptyline (ELAVIL) 10 mg tablet Take 1 tablet (10 mg total) by mouth nightly 4 Active amoxicillin 500 mg tablet/capsule every 8 hours A ctive aspirin 325 mg tablet 2 Active atorvastatin (LIPITOR) 20 mg tablet Take 1 tablet (20 mg total) by mouth daily 3 Active atorvastatin calcium (ATORVASTATIN ORAL) 3 Active biotin 5 mg tablet 2 Active buspirone HCl (BUSPIRONE, BULK, MISC) 3 Active busPIRone (BUSPAR) 5 mg tablet Take 1 tablet (5 mg total) by mouth 2 (two) times a day 3 Active cilostazoL (PLETAL) 50 mg tablet Take 1 tablet (50 mg total) by mouth 2 (two) times a day 4 Active clotrimazole-be tamethasone (LOTRISONE) cream APPLY TO THE AFFECTED AREA(S) ON FEET TWICE DAILY FOR TWO WEEKS 4 Active cyanocobalamin (Vitamin B-12) 100 mcg tablet [address] (CYMBALTA) 30 mg capsule Take 1 capsule (30 mg total) by mouth daily 4 Active famotidine (PEPCID) 20 mg tablet Take by mouth daily as needed 4 Active ipratropium (ATROVENT) 42 mcg (0.06 %) nasal spray ipratropium bromide 42 mcg (0.06 %) nasal spray ADMINISTER 2 SPRAYS INTO EACH NOSTRIL 3 TIMES A DAY Active losartan (COZAAR) 100 mg tablet Active losartan (COZAAR) 50 mg tablet Take 1 tablet (50 mg total) by mouth daily Active losartan (COZAAR) 25 mg tablet losartan 25 mg tablet TAKE 1 TABLET BY MOUTH ONCE DAILY Active nitrofurantoin monohydrate (MACROBID) 100 mg capsule TAKE 1 CAPSULE BY MOUTH EVERY 12 HOURS WITH FOOD FOR 7 DAYS 4 Active nystatin 100,000 unit/mL suspension USE 5 ML BY MOUTH FOUR TIMES DAILY FOR 14 DAYS; SWISH, GARGLE, AND SWALLOW 3 Active omeprazole 20 mg tablet,disinteg rat, delay rel 3 Active sertraline (ZOLOFT) 50 mg tablet Take 1 tablet (50 mg total) by mouth daily 2 Active sertraline (ZOLOFT) 25 mg tablet sertraline 25 mg tablet TAKE 1 TABLET BY MOUTH ONCE DAILY Active tamoxifen (NOLVADEX) 20 mg tablet Take 1 tablet (20 mg total) by mouth daily 3 Active sulfamethoxazol e-trimethoprim (BACTRIM DS) 800-160 mg per tablet TAKE 1 TABLET BY MOUTH EVERY 12 HOURS FOR 3 DAYS 4 Active triamcinolone (KENALOG) 0.1 % cream 1 Active zoledronic zvhj-phcuydiC-e ater (RECLAST) 5 mg/100 mL piggyback 2 Active amlodipine-ator vastatin (CADUET) 5-10 mg per tablet Take 1 tablet by mouth daily Active docusate sodium (COLACE) 50 mg capsuleIndicati ons:constipatio n Take 1 capsule (50 mg total) by mouth 2 (two) times a day Active simethicone 250 mg capsule Take by mouth Activ e psyllium (METAMUCIL) powder Take 1 packet by mouth 3 (three) times a day Active artificial tears (ISOPTO TEARS) 0.5 % ophthalmic solution Administer 1 drop into both eyes as needed Active acetaminophen (TYLENOL) 500 mg tablet Take 1 tablet (500 mg total) by mouth every 6 (six) hours as needed for pain Active mineral oil-chondrus oral emulsion 2.5 mL/5 mLIndications:c onstipation Take 5 mL by mouth 2 (two) times a day 480 mL 4 Active Active Problems Problem Noted Date Diagnosed Date History of reverse total rep lacement of right shoulder joint 10/03/2023 Chronic right shoulder pain 10/03/2023 Neck pain, chronic 10/03/2023 Cervico-occipital neuralgia 07/18/2023 Bilateral occipital neuralgia 01/20/2023 Numbness and tingling of upp er and lower extremities of both sides 01/20/2023 Unsteady gait 01/20/2023 Chronic sore throat 06/21/2021 Subjective cognitive impairment 10/08/2020 Nasal vestibulitis 04/23/2020 Laryngopharyngeal reflux (LPR) 04/23/2020 Postnasal drip 04/23/2020 Pancreatic cyst 12/02/2019 Generalized abdominal pain 12/02/2019 Constipation 12/02/2019 Gas pain 12/02/2019 Bloating 12/02/[address] of the abdomen 07/16/2019 Overview (07/16/2019): Added automatically from request for surgery [id number] 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 Stiffness of shoulder joint 11/29/2011 Arthralgia of shoulder 11/24/2011 Encounters Date Type Department Care Team Description 10/04/2024 12:15 PM ACTIONSCRIPT DEVELOPER Telemedicine [facility] Surgery [address] [facility] 2[address] [place] [address] Truman Dillon MD Constipation, unspecified constipation type (Primary Dx) 10/02/2024 Telephone [facility] Surgery [address] [place] [address] Medical Office Building [address] [place] [address] Angelina Brooks, DEMETRIA 09/30/2024 Telephone [facility] Surgery [address] [place] [address] [address] [place] [address] Shonda Alarcon, DEMETRIA 09/26/2024 7:36 AM ACTIONSCRIPT DEVELOPER - 09/26/2024 11:59 PM ACTIONSCRIPT DEVELOPER Hospital Encounter [facility] [address] [place] [id number] Constipation, unspecified constipation type Discharge Disposition: Discharge to home or self care from Last 3 Months Surgical History Surgery Date Site/Laterality Comments HYSTERECTOMY 11/20/1979 - 11/19/1980 Hysterectomy JOINT REPLACEMENT SHOULDER SURGERY RIGHT TOTAL SHOULDER SHOULDER ARTHROSCOPY RIGHT COLONOSCOPY CATARACT EXTRACTION BREAST SURGERY BREAST BIOPSY 08/09/2019 Right Medical History Medical History Date Comments Hx Other Medical Helicobacter py kenroy in gastric biopsy Thyroid condition Anemia Chronic constipation Diverticulosis Hyperlipidemia Hypothyroidism TIA (transient ischemic attack) Nov 2016 or Nov 2015 Cataract Arthritis Allergic rhinitis Cancer (CMS/HCC) (HCC) HL (hearing loss) Dizziness Rosacea Degeneration of intervertebr al disc of cervical region with osteophyte of cervical vertebra Osseous stenosis of neural c anal of cervical region Arthropathy of cervical face t joint DDD (degenerative disc disea se), cervical Family History Medical History Relation Name Comments Coronary artery disease Father Jose verdugo artery disease; Heart attack Father Coronary artery disease Mother Jose verdugo artery disease; Cause of : Coronary artery disease Diabetes Mother Diabetes mellit us; Hypertension Mother Hypertension; Stroke Mother Breast cancer Sister 1 Cancer, breast ; Hypertension Sister 1 Diabetes Sister 2 Diabetes mellit us; Osteoporosis Sister 2 Relation Name Status Comments Father Mother (Age 64) Sister 1 Sister 2 Social History Tobacco Use Types Packs/Day Years Used Date Smoking Tobacco: Never Smokeless Tobacco: Never Alcohol Use Standard Drinks/Week Comments Yes 2 (1 standard drink = 0.6 oz pur e alcohol) Comments No Sex and Gender Information Value Date Recorded Sex Assigned at Not on file Legal Sex Female 1:15 AM ACTIONSCRIPT DEVELOPER Gender Identity Female 10/30/2020 9:29 PM ACTIONSCRIPT DEVELOPER Sexual Orientation Straight 10/30/2020 9: 29 PM ACTIONSCRIPT DEVELOPER Obstetrics History Last Filed Vital Signs Vital Sign Reading Time Taken Comments Blood Pressure 147/74 07/23/2024 9:13 AM CDT Pulse 76 07/23/2024 9:13 AM CDT Temperature 36.3 ??C (97.3 ??F) 07/23/2024 9:13 AM CD T Respiratory Rate 14 05/12/2023 1:30 PM CDT Oxygen Saturation 96% 07/18/2023 2:26 PM CDT Inhaled Oxygen Concentration - - Weight 50.7 kg (111 lb 12.8 oz) 07/23/2024 9:13 AM CDT Height 161.3 cm (5' 3.5 ) 07/23/2024 9:13 AM CDT Body Mass Index 19.49 07/23/2024 9:13 AM CDT Plan of Treatment Health Maintenance Due Date Last Done Comments Depression Screening 1940 Fall Risk Assessment 1940 Well Visit 65+ 02/20/2005 Covid-19 Vaccine (2023-2 5 season) 2024 09/01/2021, 01/15/2021, 12/25/2020 Influenza Vaccine (#1) 2024 , 11/18/2021, 09/23/2020, Additional history exists Osteoporosis Screening-Bone Density Scan 01/01/2026 01/01/2024, 11/23/2023, 11/23/2023, Additional history exists DTaP/Tdap/Td Vaccine (4 - Td or Tdap) 07/21/2032 07/21/2022, 11/09/2015, 05/06/2003, Additional history exists Pneumococcal vaccine 65+ Completed 019, 11/29/2016, 11/19/2004 Zoster Vaccine Completed 10/26/2020, 01/2020, 10/16/2020, Additional history exists Medical Devices Implanted Type Area Instructional Technology Director Device Identifier Shelf Expiration Date Model / Serial / Lot Shoulder Replacement Right: Shoulder Procedures Procedure Name Priority Date/Time Associated Diagnosis Comments FL ENEMA W/DEFECO Schedule Routine, Read Routine (OP Routine) 09/26/2024 10:11 AM ACTIONSCRIPT DEVELOPER Constipation, unspecified constipation type DEXA TBS AXIAL SKELETON BONE DENSITY 1 OR MORE SITES Schedule Routine, Read Routine (OP Routine) 01/01/2024 12:40 PM ACTIONSCRIPT DEVELOPER Osteoporosis, unspecified osteoporosis type, unspecified pathological fracture presence from Last 3 Months or Most Recently Relevant to Health Maintenance Results * FL Defecogram (09/26/2024 10:11 AM ACTIONSCRIPT DEVELOPER) Anatomical Region Laterality Modality Body N/A Radio Fluoroscop y 09/26/2024 12:0 7 PM ACTIONSCRIPT DEVELOPER Impressions 09/26/2024 12:45 PM ACTIONSCRIPT DEVELOPER 1. Small anterior and posterior rectoceles. 2. ??During defecation, there is descent of the entire small bowel impressing on the upper rectum which may represent a broad based enterocele. 2. Trace incontinence noted during Valsalva maneuver. ?? Dictated by: Geoffrey Burroughs M.D. The radiology attending physician has personally reviewed this study, and had reviewed and/or edited this written report and agrees with it. Electronically signed by: Kia Keating M.D. Narrative 09/26/2024 12:45 PM ACTIONSCRIPT DEVELOPER EXAMINATION: DEFECOGRAM HISTORY: 84-year-old female with history of constipation. TECHNIQUE: The patient was given oral barium to opacify the small bowel approximately 45 minutes prior to the examination. A barium soaked tampon was inserted into the vagina. The rectal exam was normal. Approximately 300 cc of barium was instilled rectally. The patient was then asked to cough, contract the pelvic floor, strain, and defecate. FINDINGS: The front end wheel loader operator radiograph mild stool burden. With cough, incontinence was not present. With Valsalva maneuver, there is trace incontinence. With Kegel maneuvers, the pelvic floor did not elevate normally. With defecation, the anorectal angle became more obtuse. Initially, there was no descent of small bowel. However, with progressive straining during defecation, there is broad based descent of entire small bowel impressing on the upper rectum. There are small anterior and posterior rectoceles during defecation. Procedure Note Kia Keating MD - 09/26/2024 EXAMINATION: DEFECOGRAM HISTORY: 84-year-old female with history of constipation. TECHNIQUE: The patient was given oral barium to opacify the small bowel approximately 45 minutes prior to the examination. A barium soaked tampon was inserted into the vagina. The rectal exam was normal. Approximately 300 cc of barium was instilled rectally. The patient was then asked to cough, contract the pelvic floor, strain, and defecate. FINDINGS: The front end wheel loader operator radiograph mild stool burden. With cough, incontinence was not present. With Valsalva maneuver, there is trace incontinence. With Kegel maneuvers, the pelvic floor did not elevate normally. With defecation, the anorectal angle became more obtuse. Initially, there was no descent of small bowel. However, with progressive straining during defecation, there is broad based descent of entire small bowel impressing on the upper rectum. There are small anterior and posterior rectoceles during defecation. IMPRESSION: 1. Small anterior and posterior rectoceles. 2. During defecation, there is descent of the entire small bowel impressing on the upper rectum which may represent a broad based enterocele. 2. Trace incontinence noted during Valsalva maneuver. Dictated by: Geoffrey Burroughs M.D. The radiology attending physician has personally reviewed this study, and had reviewed and/or edited this written report and agrees with it. Electronically signed by: Kia Keating M.D. us Truman Diloln MD IMG FLUOROSCOPY PROCEDURES Fin al Result * Dexa TBS Axial Skeleton Bone Density 1 or more sites (01/01/2024 12:40 PM ACTIONSCRIPT DEVELOPER) Anatomical Region Laterality Modality Wrist, Body N/A Radiographic Daksha ging Narrative 01/03/2024 11:35 AM ACTIONSCRIPT DEVELOPER Patient Name: Rey Blancas Date of : 1940 Date of scan: 01/01/2024 Bone mineral density was performed on a Groupspeak Discovery Densitometer. ?? Based on machine cross-calibration and precision studies the least significant changes of this densitometer is 0.024 g/cm2 at the spine, 0.020 g/cm2 at the total proximal femur, and 0.014g/cm2 at the forearm. HISTORY: This is a 83 y.o. postmenopausal female with a history of breast cancer and thyroid disease. She reports that she has quit smoking. She has never used smokeless tobacco. Currently on treatment with calcium, vitamin D, zoledronic acid (Reclast), anti-seizure medications, and thyroid hormone, previously treated with alendronate (Fosamax), and current complaint of back pain and leg pain. INDICATIONS: Menopause status, treatment monitoring, aromatase inhibitor therapy, and history of osteoporosis. FINDINGS: BONE MINERAL DENSITY OF THE LUMBAR SPINE Bone Mineral Density (BMD) of the lumbar spine was measured from L1-L4 and the average density was calculated to be 0.737 gm/cm2. This corresponds to a T-score (standard deviations from the mean of young adults) of -2.8. There is no previous study available for comparison. BONE MINERAL DENSITY OF THE PROXIMAL FEMUR Bone Mineral Density (BMD) of the left hip total was found to be 0.738 gm/cm2. This corresponds to a T-score standard deviations from the mean of young adults of -1.7. Femoral neck is 0.657 gm/cm2 with a T-score (standard deviations from the mean of young adults) of -1.7. There is no previous study available for comparison. SUMMARY: Bone mineral density shows evidence of osteoporosis and marked increase risk of fracture. The lumbar spine Trabecular Bone Score is 1.268 which suggests ??partially degraded bone microarchitecture compared to the general population. Final decisions regarding diagnostic or therapeutic recommendations should include BMD, TBS, additional clinical risk factors as well the clinical context of the patient. ?? Please see attached TBS results for further details. ADDITIONAL COMMENTS: Postmenopausal Women and Men Over 50: Diagnostic criteria: Osteoporosis: BMD at or below -2.5 T-score; Osteopenia (low bone mass): BMD between -1.0 and -2.5 T-score. If the patient has a history of a fragility fracture, a fracture that occurred with trauma equivalent to a fall from a standing position or less, then the diagnosis is osteoporosis regardless of bone density. The history and data sections of the bone mineral density scan were prepared by Gisselle Nguyen(Bibi) BRYANT ??who is accredited by the International Society of Clinical Densitometry. The overall patient assessment and scan interpretation were performed by Ayo Julien M.D. ??who is certified by the International Society of Clinical Densitometry. [id number] Ayo Julien MD IMG DXA PROCEDURES Final Result from Last 3 Months or Most Recently Relevant to Health Maintenance Insurance MEDICARE SOLUTIONS [facility] MEDICARE Address: [facility] [address] [place] [address] MEDICARE SOLUTIONS MEDICARE SOLUTIONS Advance Directives For more information, please contact: [phone] Documents on File Type Date Recorded Patient Canvass Manager Expl anation ADVANCE DIRECTIVE 10/02/2018 12:00 AM [facility] FILLER SHREDDER HELPER FINANCIAL/MEDICAL * Full Code (Latest Code Status on File) Date Activated Date Inactivated Comments 07/19/2019 10:55 AM 07/19/2019 6:45 PM Care Teams Correspondence Representative Relationship Specialty Start Date End Date Jacey Handley MD [place] [address] PCP - General Internal Medicine 12/08/22 Elijah Palumbo MD [address] [place] [address] Referring Physician Gastroenterology 07/11/24 Truman Dillon MD [address] [facility] [id number] [place] [address] Surgeon Colon and Rectal Surgery 07/23/24 Davin Madsen MD [address] [facility] [address] [facility] [[email or web address] [address] [place] [address] Sales Management Intern Gastroenterology 07/23/24
--- OUTSIDE RECORDS SUMMARY | 2024-12-18 22:52 | XMS_ITS | Referral Summary ---
Author Organization [facility] Address [address] [place] [address] Care Team Providers Care Vocational Rehab Consultant Name Role Phone Marco Granados MD Primary Care Provider [phone] Source Comments [facility],non-owned Affiliates and Associated Physician Practices is amultiple site organization consisting of ambulatory clinics and hospital sitesin [place], [place], [place] and [place]. This disclosure is being madepursuant to the Care Everywhere program and may not contain all information available regarding this patient. Last updated 18.[facility] Active Problems Problem Noted Date Diagnosed Date Unspecified contact dermatitis due to other agen ts 10/28/2011 Social History Tobacco Use Types Packs/Day Years Used Date Smoking Tobacco: Never Alcohol Use Standard Drinks/Week Comments Yes 0 (1 standard drink = 0.6 oz pur e alcohol) Sex and Gender Information Value Date Recorded Sex Assigned at Not on file Gender Identity Not on file Sexual Orientation Not on file Plan of Treatment Not on file Care Teams Vocational Rehab Consultant Relationship Specialty Start Date End Date Marco Granados MD [address] [place] [phone] PCP - General Internal Medicine 11/23/17
--- OUTSIDE RECORDS SUMMARY | 2024-12-18 22:52 | XMS_ITS | Encounter Summary ---
Author Organization [facility] Address [address] [place] [address] Phone Care Team Providers Care Farm Equipment Mechanic Apprentice Name Role Phone Delia Harry MD Primary Care Provider [phone] Everett Arriaga MD Unavailable [phone] Jacey Handley MD Primary Care Provider [phone] Reason for Visit * Reason Comments Medication Refill Encounter Details Date Type Department Care Team (Late st Contact Info) Description 10/21/2021 Refill [facility] [address] [address] Everett Arriaga MD [address] [place] [phone] Medication Refill Social History Tobacco Use Types Packs/Day Years Used Date Smoking Tobacco: Never Smokeless Tobacco: Never Alcohol Use Standard Drinks/Week Comments Yes 2 (1 standard drink = 0.6 oz pur e alcohol) weekly PHQ-2 Answer Date Recorded Total Score - Questions 1-9 1 12/22 Comments No Sex and Gender Information Value Date Recorded Sex Assigned at Not on file Legal Sex Female 3:04 PM CDT Gender Identity Not on file Sexual Orientation Not on file documented as of this encounter Miscellaneous Notes * Telephone Encounter - Everett Arriaga MD - 10/22/2021 10:42 AM STRUCTURAL METAL FABRICATOR APPRENTICE Ok to fill CTURAL METAL FABRICATOR APPRENTICE * Telephone Encounter - Ruperto Olivarez RN - 10/22/2021 10:27 AM CST Refill request from pharmacy. Refill if appropriate. CTURAL METAL FABRICATOR APPRENTICE documented in this encounter Plan of Treatment Upcoming Encounters Date Type Department Care Team (Late st Contact Info) Description 02/28/2025 10:15 AM CDT Lab [facility] [address] [id number] Lab, [facility] 02/28/2025 11:00 AM CDT Ancillary Procedure [facility] [address] [phone] 02/28/2025 11:30 AM CDT Office Visit [facility] [address] [id number] Everett Arriaga MD [address] [place] [phone] documented as of this encounter Visit Diagnoses Diagnosis 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, estrogen receptor positive (HCC) Other osteoporosis, unspecified pathological fracture presence documented in this encounter Additional Health Concerns Assessment Noted Time PHQ-9 Depression Total Score: 1 01/13/20 21 3:49 PM STRUCTURAL METAL FABRICATOR APPRENTICE documented as of this encounter Care Teams Farm Equipment Mechanic Apprentice Relationship Specialty Start Date End Date Delia Harry MD [address] [address] PCP - General Family Medicine 08/13/19 08/16/22 Jacey [place] [address] PCP - General Internal Medicine 08/18/22 Everett Arriaga MD [address] [place] [address] Consulting Physician Oncology 10/20/20 documented as of this encounter
--- OUTSIDE RECORDS SUMMARY | 2024-12-18 22:52 | XMS_ITS | Clinical Summary ---
Author Organization [facility] Address [address] [place] [address] Phone Care Team Providers Care Impersonator Character Name Role Phone Jacey Handley MD Primary Care Provider [phone] Allergies No known active allergies Medications Medication Sig Dispensed Refills Start Date End Date Status acetaminophen (TYLENOL) 325 MG tablet Take 650 mg by mouth every 30 minutes as needed 09/12/2019 Active anastrozole (ARIMIDEX) 1 MG chemo tablet anastrozole 1 mg tablet 07/18/2022 Active atorvastatin (LIPITOR) 40 MG tablet atorvastatin 40 mg tablet Active carvedilol (COREG) 6.25 MG tablet Take 6.25 mg by mouth in the morning and 6.25 mg in the evening. Take with meals. 10/06/2022 Active Restasis 0.05 % ophthalmic emulsion INSTILL 1 DROP INTO EACH EYE TWICE DAILY 10/26/2022 Active levothyroxine (SYNTHROID) 75 MCG tablet 08/15/2022 Active Probiotic Product capsule Take 1 capsule by mouth in the morning. occais. Active Psyllium 400 MG capsule Fiber (psyllium husk) 0.4 gram capsule Take 1 capsule every day by oral route. Active sertraline (ZOLOFT) 50 MG tablet sertraline 50 mg tablet Take 1 tablet by mouth once daily 04/27/2021 Active Active Problems Problem Noted Date Diagnosed Date Essential hypertension 11/09/2022 Hyponatremia 02/15/2022 Hypothyroidism 02/10/2021 Osteoporosis 11/01/2019 Malignant neoplasm of lower- outer quadrant of breast, female 11/01/2019 Hyperlipidemia 01/20/2017 Cerebrovascular accident 11/29/2016 Immunizations Name Administration Dates Next Due Hep A, Unspecified 06/25/2019,03/19/2018 Hepatitis A 06/25/2019,03/19/2018 Hepatitis B 09/23/2002,04/23/2002,03/21/2002 Influenza Split High Dose Pr eservative Free IM 09/23/2020 Influenza TIV (IM) 09/03/2022 Influenza, Injectable, Quadrivalent 11/18/2021,0 06/25/2019,03/19/2018 Pfizer Sars-cov-2 Vaccination 09/01/2021 Pneumococcal Conjugate 13-Valent 11/29/2016 Pneumococcal Polysaccharide 09/03/2019 Td 06/01/1998 Tdap 11/09/2015,05/06/2003 Typhoid Inactivated 03/20/2018 Typhoid, Unspecified 03/20/2018 Varicella 08/15/2020 Zoster Recombinant 10/26/2020,,10/16/2020,08/15 Social History Tobacco Use Types Packs/Day Years Used Date Smoking Tobacco: Never Smokeless Tobacco: Never Tobacco Cessation:Counseling Given: Not Answered Alcohol Use Standard Drinks/Week Comments Yes 1 (1 standard drink = 0.6 oz pur e alcohol) Sex and Gender Information Value Date Recorded Sex Assigned at Not on file Gender Identity Not on file Sexual Orientation Not on file Last Filed Vital Signs Vital Sign Reading Time Taken Comments Blood Pressure 128/70 11/09/2022 8:47 AM HOME ECONOMICS EXPERT Pulse 72 11/09/2022 8:47 AM HOME ECONOMICS EXPERT Temperature 35.3 ??C (95.5 ??F) 11/09/2022 8:47 AM CS T Respiratory Rate - - Oxygen Saturation - - Inhaled Oxygen Concentration - - Weight 50.3 kg (111 lb) 11/09/2022 8:47 AM HOME ECONOMICS EXPERT Height 165.1 cm (5' 5 ) 11/09/2022 8:47 AM HOME ECONOMICS EXPERT Body Mass Index 18.47 11/09/2022 8:47 AM HOME ECONOMICS EXPERT Plan of Treatment Health Maintenance Due Date Last Done Comments COVID-19 Vaccine ( season) 2024 09/01/2021, 01/15/2021, 12/25/2020 Influenza Vaccine (#1) 2024 09/03/2022 Pneumococcal PPSV23/PCV13 65 + Years / High and Highest Risk Completed 09/03/2019, 11/29/2016 Care Teams Impersonator Character Relationship Specialty Start Date End Date Jacey Handley MD [address] [employer] [place] [address] PCP - General Internal Medicine 10/10/22
--- OUTSIDE RECORDS SUMMARY | 2024-12-18 22:52 | XMS_ITS | Referral Summary ---
Author Organization [facility] [place] Address [address] [place] [address] Care Team Providers Care Senior Linux Systems Administrator Name Role Phone Jacey Handley MD Primary Care Provider [phone] Elijah Palumbo MD Unavailable [phone] Truman Dillon MD Unavailable [phone] Davin Madsen MD Unavailable [phone] Encounters Date Type Department Care Team Description 10/04/2024 12:15 PM FACILITY SERVICE MANAGER Telemedicine [facility] Surgery [address] [facility] 2nd Floor [address] [place] [address] Truman Dillon MD Constipation, unspecified constipation type (Primary Dx) 10/02/2024 Telephone [facility] Surgery [address] [place] [address] Medical Office Building [address] [place] [address] Angelina Brooks, DEMETRIA 09/30/2024 Telephone [facility] Surgery [address] [place] [address] Medical Office Building [address] [place] [address] Shonda Alarcon, DEMETRIA 09/26/2024 7:36 AM FACILITY SERVICE MANAGER - 09/26/2024 11:59 PM FACILITY SERVICE MANAGER Hospital Encounter [facility] [address] [place] [address] Constipation, unspecified constipation type Discharge Disposition: Discharge to home or self care from Last 3 Months Allergies Active Allergy Reactions Criticality Noted Date [...] (KENALOG) 0.1 % cream 1 Active zoledronic pbrp-kkylnxuE-f ater (RECLAST) 5 mg/100 mL piggyback 2 [...] (07/16/2019): Added automatically from request for surgery [id number] 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 Stiffness of shoulder joint 11/29/2011 Arthralgia of shoulder 11/24/2011 Social History Tobacco Use Types Packs/Day Years Used Date Smoking Tobacco: Never Smokeless Tobacco: Never Alcohol Use Standard Drinks/Week Comments Yes 2 (1 standard drink = 0.6 oz pur e alcohol) Comments No Sex and Gender Information Value Date Recorded Sex Assigned at Not on file Legal Sex Female 1:15 AM FACILITY SERVICE MANAGER Gender Identity Female 10/30/2020 9:29 PM FACILITY SERVICE MANAGER Sexual Orientation Straight 10/30/2020 9: 29 PM FACILITY SERVICE MANAGER Last Filed Vital Signs Vital Sign Reading [...] 07/23/2024 9:13 AM CDT Plan of Treatment Not on file Medical Devices Implanted Type Area Credit Analyst Device Identifier Shelf Expiration Date Model / Serial / Lot Shoulder Replacement Right: Shoulder Procedures Procedure Name Priority Date/Time Associated Diagnosis Comments FL ENEMA W/DEFECO Schedule Routine, Read Routine (OP Routine) 09/26/2024 10:11 AM FACILITY SERVICE MANAGER Constipation, unspecified constipation type DEXA TBS AXIAL SKELETON BONE DENSITY 1 OR MORE SITES Schedule Routine, Read Routine (OP Routine) 01/01/2024 12:40 PM FACILITY SERVICE MANAGER Osteoporosis, unspecified osteoporosis type, unspecified pathological fracture presence from Last 3 Months or Most Recently Relevant to Health Maintenance Results * FL Defecogram (09/26/2024 10:11 AM FACILITY SERVICE MANAGER) Anatomical Region Laterality Modality Body N/A Radio Fluoroscop y 09/26/2024 12:0 7 PM FACILITY SERVICE MANAGER Impressions 09/26/2024 12:45 PM FACILITY SERVICE MANAGER 1. Small anterior and posterior rectoceles. 2. [...] Kia Keating M.D. Narrative 09/26/2024 12:45 PM FACILITY SERVICE MANAGER EXAMINATION: DEFECOGRAM HISTORY: 84-year-old female with history [...] pelvic floor, strain, and defecate. FINDINGS: The professor of communication radiograph mild stool burden. With cough, incontinence [...] pelvic floor, strain, and defecate. FINDINGS: The professor of communication radiograph mild stool burden. With cough, incontinence [...] signed by: Kia Keating M.D. us Truman Dillon MD IMG FLUOROSCOPY PROCEDURES Fin al Result * Dexa TBS Axial Skeleton Bone Density 1 or more sites (01/01/2024 12:40 PM FACILITY SERVICE MANAGER) Anatomical Region Laterality Modality Wrist, Body N/A Radiographic Daksha ging Narrative 01/03/2024 11:35 AM FACILITY SERVICE MANAGER Patient Name: Vanda Blancas Date of : 1940 Date of scan: 01/01/2024 Bone mineral density was performed on a [employer] Discovery Densitometer. ?? Based on machine cross-calibration [...] density scan were prepared by Gisselle Nguyen(Bibi) HENRYT ??who is accredited by the International Society of Clinical Densitometry. The overall patient assessment and scan interpretation were performed by Ayo Julien M.D. ??who is certified by the International Society of Clinical Densitometry. [id number] Ayo Julien MD IMG DXA PROCEDURES Final Result from Last 3 Months or Most Recently Relevant to Health Maintenance Insurance [place] [address] MEDICARE SOL[employer] [place] [address] Advance Directives For more information, please contact: [phone] Documents on File Type Date Recorded Patient Fisher Hand Line Expl anation ADVANCE DIRECTIVE 10/02/2018 12:00 AM POW ER OF BUSINESS OFFICE DIRECTOR FINANCIAL/MEDICAL * Full Code (Latest Code Status on File) Date Activated Date Inactivated Comments 07/19/2019 10:55 AM 07/19/2019 6:45 PM Care Teams Senior Linux Systems Administrator Relationship Specialty Start Date End Date Jacey Handley MD [address] [employer] [facility] [place] [address] PCP - General Internal Medicine 12/08/22 Elijah Palumbo MD [address] [place] [address] Referring Physician Gastroenterology 07/11/24 Truman Dillon MD [phone] [place] [address] Surgeon Colon and Rectal Surgery 07/23/24 Davin Madsen MD [address] [facility] [address] [facility] [address] [place] [address] Cutter Gastroenterology 07/23/24
--- OUTSIDE RECORDS SUMMARY | 2024-12-18 22:52 | XMS_ITS | Patient Health Summary ---
Author Organization [facility] Address [address] [place] [address] Care Team Providers Care Electrical Logger Name Role Phone Marco Granados MD Primary Care Provider Note from [facility],non-owned Affiliates and Associated Physician Practices is amultiple site organization consisting of ambulatory clinics and hospital sitesin [place], [place], [place] and [place]. This disclosure is being madepursuant to the Care Everywhere program and may not contain all information available regarding this patient. Last updated [facility] Active Problems Problem Noted Date Diagnosed Date [...] on file Sexual Orientation Not on file Procedures * PET BRAIN METABOLIC EVAL(Performed 11/23/2017) Performed for Research study patient Results * NM PET BRAIN METABOLIC EVAL IMAGING (11/23/2017 2:15 PM MOBILE APPLICATION DEVELOPMENT LEAD) Narrative [facility] - 12/25/2017 10:41 AM MOBILE APPLICATION DEVELOPMENT LEAD No Dictation. Altaf Hernandez DO NM ORDERABLES [facility] Care Teams Electrical Logger Relationship Specialty Start Date End Date Marco Granados MD [address] [place] [address] (work) PCP - General Internal Medicine 11/23/17
--- OUTSIDE RECORDS SUMMARY | 2024-12-18 22:52 | XMS_ITS | Encounter Summary ---
Author Organization [facility] Address [address] [place] [address] Phone Care Team Providers Care Junior Recruiter Name Role Phone Everett Arriaga MD Unavailable [phone] Jacey Handley MD Primary Care Provider [phone] Encounter Details Date Type Department Care Team (Late Contact Info) Description 08/12/2024 Telephone [facility] [address] [phone] Everett Arriaga MD [address] [place] [address] Social History Tobacco Use Types Packs/Day Years [...] on file documented as of this encounter Plan of Treatment Upcoming Encounters Date Type Department Care Team (Late Contact Info) Description 02/28/2025 10:15 AM CDT Lab [facility] [address] [phone] Lab, Cc [facility] 02/28/2025 11:00 AM CDT Ancillary Procedure [facility] [address] [phone] 02/28/2025 11:30 AM CDT Office Visit [facility] [address] [phone] Everett Arriaga MD [address] [place] [address] documented as of this encounter Visit Diagnoses Not on filedocumented in this encounter Additional Health Concerns Assessment Noted Time PHQ-9 Depression Total Score: 1 01/13/20 21 3:49 PM HVAC JOURNEYMAN documented as of this encounter Care Teams Junior Recruiter Relationship Specialty Start Date End Date Jacey Handley MD [address] [place] [address] [place] [address] PCP - General Internal Medicine 08/18/22 Everett Arriaga MD [address] [place] [address] Consulting Physician Oncology 10/20/20 documented as of this encounter
--- OUTSIDE RECORDS SUMMARY | 2024-12-18 22:52 | XMS_ITS | Encounter Summary ---
Author Organization [facility] Address [address] [place] [address] Phone Care Team Providers Care Telephone Service Representative Name Role Phone Delia Harry MD Primary Care Provider [phone] Ysabel Winters MD Primary Care Provider [phone] Jacey Handley MD Primary Care Provider [phone] Elijah Palumbo MD Unavailable [phone] Truman Dillon MD Unavailable [phone] Davin Madsen MD Unavailable [phone] Encounter Details Date Type Department Care Team (Late st Contact Info) Description 10/24/2019 Orders Only [facility] Gastroenterology [address] [facility] Office [address] [place] [phone] Lolis Mcallister MD [address] [place] [address] [address] [place] [address] Social History Tobacco Use Types Packs/Day Years Used Date Smoking Tobacco: Never Smokeless Tobacco: Never Alcohol Use Standard Drinks/Week Comments Yes 2 (1 standard drink = 0.6 oz pur e alcohol) Comments No Sex and Gender Information Value Date Recorded Sex Assigned at Not on file Legal Sex Female 1:15 AM CLAIMS SPECIALIST Gender Identity Female 10/30/2020 9:29 PM CLAIMS SPECIALIST Sexual Orientation Straight 10/30/2020 9: 29 PM CLAIMS SPECIALIST documented as of this encounter Plan of Treatment Not on file documented as of this encounter Visit Diagnoses Not on filedocumented in this encounter Care Teams Telephone Service Representative Relationship Specialty Start Date End Date Delia Harry MD [address] [facility] [address] [place] [address] PCP - General 01/18/19 12/06/20 Ysabel Winters MD [address] [facility] [address] [place] [address] PCP - General 12/07/20 12/07/22 Jacey [place] [address] PCP - General Internal Medicine 12/08/22 Elijah Palumbo MD [address] [place] [address] Referring Physician Gastroenterology 07/11/24 Truman Dillon MD [address] [facility] [phone] [place] [address] Surgeon Colon and Rectal Surgery 07/23/24 Davin Madsen MD [address] [facility] [address] [facility] [address] [place] [address] Digital Artist Gastroenterology 07/23/24 documented as of this encounter
--- OUTSIDE RECORDS SUMMARY | 2024-12-18 22:52 | XMS_ITS | Encounter Summary ---
Author Organization [facility] Address [address] [place] [address] Phone Care Team Providers Care Offset Press Operator Helper Name Role Phone Delia Harry MD Primary Care Provider [phone] Ysabel Winters MD Primary Care Provider [phone] Jacey Handley MD Primary Care Provider [phone] Elijah Palumbo MD Unavailable [phone] Truman Dillon MD Unavailable [phone] Davin Madsen MD Unavailable [phone] Reason for Visit * Reason Onset Date Comments Zoom invite 09/22/2020 1:44pm YR spoke with Ms. Blancas and set her up for testing 10/01/2020 10:00am Encounter Details Date Type Department Care Team (Late st Contact Info) Description 09/22/2020 Documentation [facility] [address] [place] [address] [address] Floor [address] [place] [address] Ewelina Fung CNA Zoom invite (1:44pm YR spoke with Ms. Blancas and set her up for testing 10/01/2020 10:00am) Social History Tobacco Use Types Packs/Day Years Used Date Smoking Tobacco: Former Smokeless Tobacco: Never Alcohol Use Standard Drinks/Week Comments Yes 2 (1 standard drink = 0.6 oz pur e alcohol) Comments No Sex and Gender Information Value Date Recorded Sex Assigned at Not on file Legal Sex Female 1:15 AM NEEDLE PUNCH OPERATOR Gender Identity Female 10/30/2020 9:29 PM NEEDLE PUNCH OPERATOR Sexual Orientation Straight 10/30/2020 9: 29 PM NEEDLE PUNCH OPERATOR documented as of this encounter Plan of Treatment Not on file documented as of this encounter Visit Diagnoses Not on filedocumented in this encounter Care Teams Offset Press Operator Helper Relationship Specialty Start Date End Date Delia Harry MD [address] [facility] [address] [place] [address] PCP - General 01/18/19 12/06/20 Ysabel Winters MD [address] [facility] [address] [place] [address] PCP - General 12/07/20 12/07/22 Jacey Handley MD [facility] [address] PCP - General Internal Medicine 12/08/22 Elijah Palumbo MD [address] [place] [address] Referring Physician Gastroenterology 07/11/24 Truman Dillon MD [phone] [place] [address] Surgeon Colon and Rectal Surgery 07/23/24 Davin Madsen MD [address] [facility] [address] [place] [address] Lan Support Specialist Gastroenterology 07/23/24 documented as of this encounter
--- OUTSIDE RECORDS SUMMARY | 2024-12-18 22:52 | XMS_ITS | Encounter Summary ---
Author Organization [facility] Address [address] [place] [address] Phone Care Team Providers Care Textile Engraver Name Role Phone Delia Harry MD Primary Care Provider [phone] Everett Arriaga MD Unavailable [phone] Jacey Handley MD Primary Care Provider [phone] Reason for Visit * Reason Comments Medication Refill Encounter Details Date Type Department Care Team (Late st Contact Info) Description 07/17/2022 Refill [facility] [place] [address] [place] [address] Everett Arriaga MD [address] [place] [phone] Medication Refill Social History Tobacco Use Types Packs/Day Years Used Date Smoking Tobacco: Never Smokeless Tobacco: Never Alcohol Use Standard Drinks/Week Comments Yes 2 (1 standard drink = 0.6 oz pur e alcohol) weekly PHQ-2 Answer Date Recorded Total Score - Questions 1-9 0 0 06/2022 Comments No Sex and Gender Information Value Date Recorded Sex Assigned at Not on file Legal Sex Female 3:04 PM CDT Gender Identity Not on file Sexual Orientation Not on file documented as of this encounter Miscellaneous Notes * Telephone Encounter - Emma Thacker, KELSEY, PROPERTY INSPECTOR - 07/18/2022 10:20 AM CDT Okay to refill. * Telephone Encounter - Christiana Sheppard RN - 07/18/2022 8:03 AM CDT Refill request from pharmacy Last filled 10/22/2021 #90 R-2 Please fill if appropriate documented in this encounter Plan of Treatment Upcoming Encounters Date Type Department Care Team (Late st Contact Info) Description 02/28/2025 10:15 AM CDT Lab [facility] [address] [phone] Lab, Cc [facility] 02/28/2025 11:00 AM CDT Ancillary Procedure [facility] [address] [phone] 02/28/2025 11:30 AM CDT Office Visit [facility] [address] [phone] Everett Arriaga MD [address] [place] [phone] documented as of this encounter Visit Diagnoses Diagnosis 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, estrogen receptor positive (HCC) Other osteoporosis, unspecified pathological fracture presence documented in this encounter Additional Health Concerns Assessment Noted Time PHQ-9 Depression Total Score: 1 01/13/20 21 3:49 PM STAFF REGISTERED NURSE documented as of this encounter Care Teams Textile Engraver Relationship Specialty Start Date End Date Delia Harry MD [address] [address] PCP - General Family Medicine 08/13/19 08/16/22 Jacey Handley MD [address] [employer] [place] [address] PCP - General Internal Medicine 08/18/22 Everett Arriaga MD [address] [place] [address] Consulting Physician Oncology 10/20/20 documented as of this encounter
--- OUTSIDE RECORDS SUMMARY | 2024-12-18 22:52 | XMS_ITS | Encounter Summary ---
Author Organization [facility] Facility Care Team Providers Care Telegraph Office Manager Name Role Phone Delia Harry MD Primary Care Provider [phone] Ysabel Winters MD Primary Care Provider [phone] Jacey Handley MD Primary Care Provider [phone] Elijah Palumbo MD Unavailable [phone] Truman Dillon MD Unavailable [phone] Davin Madsen MD Unavailable [phone] Encounter Details Date Type Department Care Team (Latest Contact Info) Description 10/17/2018 Orders Only [facility] ProviderRobert MD [address] [place], [place] [id number] Social History Tobacco Use Types Packs/Day Years Used Date Smoking Tobacco: Never Alcohol Use Standard Drinks/Week Comments Yes 0 (1 standard drink = 0.6 oz pur e alcohol) Comments Unknown Sex and Gender Information Value Date Recorded Sex Assigned at Not on file Legal Sex Female 1:15 AM BEATER AND PULPER FEEDER Gender Identity Female 10/30/2020 9:29 PM BEATER AND PULPER FEEDER Sexual Orientation Straight 10/30/2020 9: 29 PM BEATER AND PULPER FEEDER documented as of this encounter Plan of Treatment Not on file documented as of this encounter Procedures Procedure Name Priority Date/Time Associated Diagnosis Comments PROCEDURE - RESULT 10/17/2018 12 :00 AM BEATER AND PULPER FEEDER documented in this encounter Results * PROCEDURE - RESULT (10/17/2018 12:00 AM BEATER AND PULPER FEEDER) Narrative 10/17/2018 12:00 AM BEATER AND PULPER FEEDER Ordered by an unspecified provider. us Historical Provider Final Res ult documented in this encounter Visit Diagnoses Not on filedocumented in this encounter Care Teams Telegraph Office Manager Relationship Specialty Start Date End Date Delia Harry MD [address] [facility] [place] [address] [place] [address] PCP - General 01/18/19 12/06/20 Ysabel Winters MD [address] [facility] [place] [address] [place] [address] PCP - General 12/07/20 12/07/22 Jacey Handley [place] [address] PCP - General Internal Medicine 12/08/22 Elijah Palumbo MD [address] [place] [address] Referring Physician Gastroenterology 07/11/24 Truman Dillon MD [phone] [place] [address] Surgeon Colon and Rectal Surgery 07/23/24 Davin Madsen MD [address] [facility] [address] [place] [address] Employment Representative Gastroenterology 07/23/24 documented as of this encounter
--- OUTSIDE RECORDS SUMMARY | 2024-12-18 22:52 | XMS_ITS | Clinical Summary ---
Author Organization [facility] Address [facility] [facility] [place] [address] [place] [address] Care Team Providers Care Acid Maker Name Role Phone Gen Kirk MD Unavailable [phone] Miguel Angel Tamayo MD Unavailable [phone] Jacey Handley MD Primary Care Provider [phone] Allergies No known active allergies Medications atorvastatin 20 MG tabletIndicatio ns:monday, monday, night Take 20 mg by mouth 3 (three) times a week. Indications: monday, monday, night 01/25/2019 Active levothyroxine 75 MCG tablet Take 75 mcg by mouth daily. Active omeprazole 40 MG capsule Take 40 mg by mouth 2 (two) times a day. 07/19/2019 Active prednisoLONE acetate 1 % ophthalmic suspension Apply 1 drop to eye weekly. Active Probiotic Product (PROBIOTIC-10) Cap Take 1 capsule by mouth nightly. Active Multiple Vitamins-Minera ls (CENTRUM SILVER) Tab Take 1 tablet by mouth daily. 30 tablet 08/30/2019 Active cycloSPORINE (RESTASIS) 0.05 % ophthalmic emulsion Place 1 drop into both eyes 2 (two) times daily. 08/30/2019 Active calcium carb-cholecalci ferol (CALCIUM+D3) 600-800 MG-UNIT tablet Take 1 tablet by mouth daily. Active carboxymethylce llulose 0.25 % Solution ophthalmic solution Place 1 drop into both eyes nightly as needed for Dry eyes. Active acetaminophen 325 MG tablet Take 2 tablets (650 mg total) by mouth every 4 (four) hours as needed for Pain. For Mild Pain or Fever 09/12/2019 Active Active Problems No known active problems Family History Medical History Relation Comments Breast Cancer Sister Relation Status Comments Sister Social History Tobacco Use Types Packs/Day Years Used Date Smoking Tobacco: Never Smokeless Tobacco: Never Comments No Sex and Gender Information Value Date Recorded Sex Assigned at Not on file Legal Sex Female 7:41 PM CDT Gender Identity Not on file Sexual Orientation Not on file Last Filed Vital Signs Vital Sign Reading Time Taken Comments Blood Pressure 126/57 09/20/2019 4:53 PM CDT Pulse 67 09/20/2019 4:53 PM CDT Temperature 36.2 ??C (97.1 ??F) 09/20/2019 4:53 PM CD T Respiratory Rate 20 09/20/2019 4:53 PM CDT Oxygen Saturation 97% 09/20/2019 4:53 PM CDT Inhaled Oxygen Concentration - - Weight 52.2 kg (115 lb 1.3 oz) 09/20/2019 11:22 AM CDT Height 165.1 cm (5' 5 ) 09/20/2019 11:22 AM CDT Body Mass Index 19.15 09/20/2019 11:22 AM CDT Plan of Treatment Upcoming Encounters Date Type Department Care Team (Late st Contact Info) Description 02/25/2025 12:00 PM CDT Appointment [facility] Mammography [address] [place], [place] [id number] Dora Nunez, FORESTRY FOREMAN [address] [place] [address] Health Maintenance Due Date Last Done Comments Annual Medicare Wellness Visit 02/20/2005 RSV Immunization or 60+ Years (1 - 1-dose 75+ series) 02/20/2015 COVID-19 Vaccine ( season) 2024 09/01/2021, 01/15/2021, 12/25/2020 Influenza Adult (#1) 2024 09/03/2022, 11/18/2021, 09/23/2020, Additional history exists DTaP, Tdap and Td Vaccines (3 - Td or Tdap) 11/09/2025 11/09/2015, 05/06/2003, 06/01/1998 Pneumococcal Vaccine: 65+ Years Completed 09/03/2019, 11/29/2016 Zoster Vaccines Completed 10/26/2020, 01/2020, 10/16/2020, Additional history exists Dexa Scan (General) Completed 01/01/2024, 11/23/2023, 12/08/2021, Additional history exists Meningococcal B Vaccine Aged Out No l onger eligible based on patient's age to complete this topic Meningococcal Vaccine Aged Out No silvia sánchez eligible based on patient's age to complete this topic RSV Immunizations Under 20 Months Aged Out No longer eligible based on patient's age to complete this topic Procedures Procedure Name Priority Date/Time Associated Diagnosis Comments BONE DENSITY/DEXA Routine 10/25/2019 1:5 0 PM HOIST WORKER Postmenopausal from Last 3 Months or Most Recently Relevant to Health Maintenance Results * BONE DENSITY/DEXA (10/25/2019 1:50 PM HOIST WORKER) Anatomical Region Laterality Modality Bone Mammography 10/25/2019 3:00 PM HOIST WORKER Impressions 10/25/2019 3:02 PM HOIST WORKER Impression: BMD measured at AP lumbar spine at WHO category level of osteoporosis. BMD measured at both total hips and both femoral necks at level of osteopenia. Narrative 10/25/2019 3:02 PM HOIST WORKER Examination: DEXA Bone densitometry EXAM DATE: ??10/25/2019 1:50 PM Clinical history: Postmenopausal. Calcium supplementation. Vitamin D use. Prior hysterectomy. Dairy product consumption. Weight-bearing exercise. Indication use for treatment of osteoporosis. Technique: DEXA bone minimal density evaluation was performed in the AP projection over the lumbar spine and over both hips in the AP projection utilizing standard imaging techniques. Assessment: The BMD measured at the AP spine L1-L4 is 0.726 g/cm? with a T-score of -2.9 and a Z-Score of ??-0.3. ?? This patient is considered osteoporotic according to the world health organizations (WHO) criteria. Fracture risk is high. Pharmacological treatment, if not already prescribed should be considered. If pharmacological treatment is utilized, a followup bone density chest is recommended in one year to monitor response to therapy. The BMD measured at the femur total left is 0.715 g/cm? with a T-score of -1.9 and a Z-Score of 0.2. ?The patient is considered osteopenic according to World Health Organization (WHO) criteria. Bone density is between 10 and 25% below young normal. Fracture risk is moderate. Treatment is advised. The BMD measured at the left femoral neck is 0.647 g/sq cm resulting in a T score of -1.8 and a Z score of 0.5, values at the WHO category level of osteopenia. The BMD measured at the femur total right is 0.687 g/cm? with a T-score of -2.1 and aZ-Score of ??-0.1. ?? The patient is considered osteopenic according to World Health Organization (WHO) criteria. Bone density is between 10 and 25% below young normal. Fracture risk is moderate. Treatment is advised. The BMD measured at the right femoral neck is 0.619 g/sq cm resulting in a T score of -2.1 and a Z score of 0.2, values at the WHO category level of osteopenia. Recommendations: All patients should ensure an adequate intake of dietary calcium and vitamin D. The NOF recommend adults under the age of 50 need 1000 mg of calcium and 400-800 IU of vitamin D daily. Effective therapy for the prevention and treatment of osteoporosis include biphosphonates. Follow-up: People with diagnosed cases of osteoporosis or at high risk for fracture should have regular bone mineral density test. For patients eligible for Medicare, routine testing is allowed once every 2 years. Testing frequency can be increased to one year for patients who have rapidly progressing disease, those who are receiving or discontinuing medical therapy to restore bone mass, or have additional risk factors. Based on these results, a followup exam is recommended in no earlier than 2 years. Procedure Note William Gutierrez MD - 10/25/2019 Examination: DEXA Bone densitometry EXAM DATE: 10/25/2019 1:50 PM Clinical history: Postmenopausal. Calcium supplementation. Vitamin Duse. Prior hysterectomy. Dairy product consumption. Weight-bearing exercise. Indication use for treatment of osteoporosis. Technique: DEXA bone minimal density evaluation was performed in the AP projection over the lumbar spine and over both hips in the AP projection utilizing standard imaging techniques. Assessment: The BMD measured at the AP spine L1-L4 is 0.726 g/cm? with a T-score of -2.9 and a Z-Score of -0.3. This patient is considered osteoporotic according to the world health organizations (WHO) criteria. Fracturerisk is high. Pharmacological treatment, if not already prescribed should be considered. If pharmacological treatment is utilized, a followup bone density chest is recommended in one year to monitor response to therapy. The BMD measured at the femur total left is 0.715 g/cm? with a T-scoreof -1.9 and a Z-Score of 0.2. The patient is considered osteopenic according to World Health Organization (WHO) criteria. Bone density is between 10 and 25% below young normal. Fracture risk is moderate.Treatment is advised. The BMD measured at the left femoral neck is 0.647 g/sq cm resulting in aT score of -1.8 and a Z score of 0.5, values at the WHO category level of osteopenia. The BMD measured at the femur total right is 0.687 g/cm? with a T-scoreof -2.1 and aZ-Score of -0.1. The patient is considered osteopenic according to World Health Organization (WHO) criteria. Bone density is between 10 and 25% below young normal. Fracture risk is moderate.Treatment is advised. The BMD measured at the right femoral neck is 0.619 g/sq cm resulting dolores T score of -2.1 and a Z score of 0.2, values at the WHO category levelof osteopenia. Recommendations: All patients should ensure an adequate intake of dietary calcium and vitamin D. The NOF recommend adults under the age of 50 need 1000 mg of calcium and 400-800 IU of vitamin D daily. Effective therapy for the prevention and treatment of osteoporosis include biphosphonates. Follow-up: People with diagnosed cases of osteoporosis or at high risk for fracture should have regular bone mineral density test. For patients eligible for Medicare, routine testing is allowed once every 2 years. Testingfrequency can be increased to one year for patients who have rapidly progressing disease, those who are receiving or discontinuing medical therapy to restore bone mass, or have additional risk factors. Based on these results, a followup exam is recommended in no earlier than2 years. Impression: BMD measured at AP lumbar spine at WHO category level of osteoporosis. BMD measured at both total hips and both femoral necks at level of osteopenia. Everett Arriaga MD DEXA Final Resul t from Last 3 Months or Most Recently Relevant to Health Maintenance Insurance [facility] Care Teams Acid Maker Relationship Specialty Start Date End Date Jacey Handley MD [address] [facility] [address] [place] [address] PCP - General INTERNAL MEDICINE 01/26/23 Gen Kirk MD [place] Scale Clerk INTERVENTIONAL CARDIOLOGY 08/28/19 Miguel Angel Tamayo MD [address] [place] [address] Referring Physician GENERAL SURGERY 08/20/19
--- OUTSIDE RECORDS SUMMARY | 2024-12-18 22:52 | XMS_ITS | Encounter Summary ---
Author Organization [facility] Care Team Providers Care Ironer Sock Name Role Phone Delia Harry MD Primary Care Provider [phone] Ysabel Winters MD Primary Care Provider [phone] Jacey Handley MD Primary Care Provider [phone] Elijah Palumbo MD Unavailable [phone] Truman Dillon MD Unavailable [phone] Davin Madsen MD Unavailable [phone] Encounter Details Date Type Department Care Team (Latest Contact Info) Description 09/24/2018 Orders Only [facility] CLINCONV ProviderRobert MD [address] [place] [address] Social History Tobacco Use Types Packs/Day Years Used Date Smoking Tobacco: Never Alcohol Use Standard Drinks/Week Comments Yes 0 (1 standard drink = 0.6 oz pur e alcohol) Comments Unknown Sex and Gender Information Value Date Recorded Sex Assigned at Not on file Legal Sex Female 1:15 AM MEMBERSHIP SALES ADVISOR Gender Identity Female 10/30/2020 9:29 PM MEMBERSHIP SALES ADVISOR Sexual Orientation Straight 10/30/2020 9: 29 PM MEMBERSHIP SALES ADVISOR documented as of this encounter Plan of Treatment Not on file documented as of this encounter Procedures Procedure Name Priority Date/Time Associated Diagnosis Comments PROCEDURE - RESULT 09/24/2018 12 :00 AM MEMBERSHIP SALES ADVISOR documented in this encounter Results * PROCEDURE - RESULT (09/24/2018 12:00 AM MEMBERSHIP SALES ADVISOR) Narrative 09/24/2018 12:00 AM MEMBERSHIP SALES ADVISOR Ordered by an unspecified provider. us Historical Provider Final Res ult documented in this encounter Visit Diagnoses Not on filedocumented in this encounter Care Teams Ironer Sock Relationship Specialty Start Date End Date Delia Harry MD [address] [facility] [address] [place] [address] PCP - General 01/18/19 12/06/20 Ysabel Winters MD [address] [facility] [address] [place] [address] PCP - General 12/07/20 12/07/22 [place] [address] PCP - General Internal Medicine 12/08/22 Elijah Palumbo MD [address] [place] [address] Referring Physician Gastroenterology 07/11/24 Truman Dillon MD [phone] [place] [address] Surgeon Colon and Rectal Surgery 07/23/24 Davin Madsen MD [address] [facility] [address] [place] [address] Rigging Engineer Gastroenterology 07/23/24 documented as of this encounter
--- OUTSIDE RECORDS SUMMARY | 2024-12-18 22:52 | XMS_ITS | Encounter Summary ---
Author Organization [facility] Address [address] [place] [address] Phone Care Team Providers Care Bible Teacher Name Role Phone Delia Harry MD Primary Care Provider [phone] Ysabel Winters MD Primary Care Provider [phone] Jacey Handley MD Primary Care Provider [phone] Elijah Palumbo MD Unavailable [phone] Truman Dillon MD Unavailable [phone] Davin Madsen MD Unavailable [phone] Encounter Details Date Type Department Care Team (Latest Contact Info) Description 10/28/2020 Orders Only [facility] Scanning, Provider Social History Tobacco Use Types Packs/Day Years Used Date Smoking Tobacco: Former Smokeless Tobacco: Never Alcohol Use Standard Drinks/Week Comments Yes 2 (1 standard drink = 0.6 oz pur e alcohol) Comments No Sex and Gender Information Value Date Recorded Sex Assigned at Not on file Legal Sex Female 1:15 AM PHOTOSTATIC COPY MAKER Gender Identity Female 10/30/2020 9:29 PM PHOTOSTATIC COPY MAKER Sexual Orientation Straight 10/30/2020 9: 29 PM PHOTOSTATIC COPY MAKER documented as of this encounter Plan of Treatment Not on file documented as of this encounter Procedures Procedure Name Priority Date/Time Associated Diagnosis Comments SCAN - RADIOLOGY/IMAGING 10/28/2020 documented in this encounter Results * SCAN - RADIOLOGY/IMAGING (10/28/2020) Anatomical Region Laterality Modality Other us Provider Scanning Final Result documented in this encounter Visit Diagnoses Not on filedocumented in this encounter Care Teams Bible Teacher Relationship Specialty Start Date End Date Delia Harry MD [address] [facility] [address] [place] [address] PCP - General 01/18/19 12/06/20 Ysabel Winters MD [address] [facility] [address] [place] [address] PCP - General 12/07/20 12/07/22 Jacey [place]ley [place] [address] PCP - General Internal Medicine 12/08/22 Elijah Palumbo MD [address] [place] [address] Referring Physician Gastroenterology 07/11/24 Truman Dillon MD [phone] [place] [address] Surgeon Colon and Rectal Surgery 07/23/24 Davin Madsen MD [address] [facility] [address] [place] [address] Fishery Biologist Gastroenterology 07/23/24 documented as of this encounter
[2024-12-18 23:05] VITALS: BP 161/97; PULSE 76; RESP 20; TEMP 37.1; O2SAT 100
--- NOTE | 2024-12-18 23:06 | ECG_ITS ---
Test Date: 2024-12-18 23:12:13 Measurements Intervals Kidder Rate: 74 P: 76 OR: 153 QRS: 75 QRSD: 73 T: 69 QT: 381 QTc: 423 Interpretive Statements SINUS RHYTHM No previous ECG available for comparison Electronically Signed On 12-19-2024 11:39:28 DIRECTOR PHYSICAL by Uriah Poon M.D.
[2024-12-18 23:29] LABS: Basophils Percent Auto 0.9 % (0.2-1.2); Eosinophils Absolute Auto 0.1 K/mm3 (0-0.3); Eosinophils Percent Auto 2.4 % (0-4.4); Hematocrit 37.7 % (37.0-47.0); Hemoglobin 12.2 g/dL (12.0-15.0); Immature Granulocyte Absolute 0.01 K/mm3 (0.00-0.031); Immature Granulocyte Percent A 0.2 % (0-0.5); Lymphocytes Absolute Auto 1.41 K/mm3 (0.9-3.2); Lymphocytes Percent Auto 33.3 % (18.3-44.2); Mean Corpuscular HGB Conc 32.4 g/dl (32-36); Mean Corpuscular Volume 89.8 fl (80-100); Mean Platelet Volume 7.9 fl (7.4-10.4); Monocytes Absolute Auto 0.5 K/mm3 (0.1-0.6); Monocytes Percent Auto 11.8 % (2.6-8.5); Neutrophils Absolute Auto 2.2 K/mm3 (1.3-6.7); Neutrophils Percent Auto 51.4 % (45.5-73.1); Platelet Count Result 210 k/mm3 (150-375); Red Cell Distribution Width 13.3 % (11.5-14.5); White Blood Count 4.2 K/mm3 (4.5-10.0)
[2024-12-18 23:39] LABS: Alanine Aminotransferase 17 U/L (6-35); Albumin Level 4.5 g/dL (3.5-5.1); Alkaline Phosphatase 83 U/L (38-126); Anion Gap 7 mmol/L (4-12); Aspartate Amino Transferase 31 U/L (14-36); Bilirubin,Total 0.8 mg/dL (0.2-1.3); Blood Urea Nitrogen 8 mg/dL (7-17); Calcium 9.5 mg/dL (8.4-10.2); Carbon Dioxide 30 mmol/L (22-30); Chloride 93 mmol/L (98-107); Estimated CRCL calculation 49 ml/min; Estimated Glomerular Filt Rate > 60; Glucose 120 mg/dL (65-110); Potassium 4.5 mmol/L (3.4-5.0); Sodium 130 mmol/L (137-145)
[2024-12-18 23:43] LABS: INR 0.9; Prothrombin Time 12.3 Seconds (11.1-14.7)
[2024-12-18 23:44] LABS: Partial Thromboplastin Time 27.9 Seconds (22.3-36.8)
[2024-12-18 23:50] LABS: Troponin I < 0.012 ng/mL (0.000-0.034)
--- OUTSIDE RECORDS SUMMARY | 2024-12-19 01:21 | XMS_ITS | Encounter Summary ---
Author Organization [facility] Care Team Providers Care Open Hearth Furnace Operator Helper Name Role Phone Delia Harry MD Primary Care Provider [phone] Ysabel Winters MD Primary Care Provider [phone] Jacey Handley MD Primary Care Provider [phone] Elijah Palumbo MD Unavailable [phone] Truman Dillon MD Unavailable [phone] Davin Madsen MD Unavailable [phone] Encounter Details Date Type Department Care Team (Latest Contact Info) Description 10/17/2018 Orders Only [facility] CLINCONV ProviderRobert MD [address] [place], [place] [id number] Social History Tobacco Use Types Packs/Day Years Used Date Smoking Tobacco: Never Alcohol Use Standard Drinks/Week Comments Yes 0 (1 standard drink = 0.6 oz pur e alcohol) Comments Unknown Sex and Gender Information Value Date Recorded Sex Assigned at Not on file Legal Sex Female 1:15 AM INTERNAL AFFAIRS COMMANDER Gender Identity Female 10/30/2020 9:29 PM INTERNAL AFFAIRS COMMANDER Sexual Orientation Straight 10/30/2020 9: 29 PM INTERNAL AFFAIRS COMMANDER documented as of this encounter Plan of Treatment Not on file documented as of this encounter Procedures Procedure Name Priority Date/Time Associated Diagnosis Comments PROCEDURE - RESULT 10/17/2018 12 :00 AM INTERNAL AFFAIRS COMMANDER documented in this encounter Results * PROCEDURE - RESULT (10/17/2018 12:00 AM INTERNAL AFFAIRS COMMANDER) Narrative 10/17/2018 12:00 AM INTERNAL AFFAIRS COMMANDER Ordered by an unspecified provider. us Historical Provider Final Res ult documented in this encounter Visit Diagnoses Not on filedocumented in this encounter Care Teams Open Hearth Furnace Operator Helper Relationship Specialty Start Date End Date Delia Harry MD [address] [facility] [address] [place] [address] PCP - General 01/18/19 12/06/20 Ysabel Winters MD [address] [facility] [address] [place] [address] PCP - General 12/07/20 12/07/22 [place] [address] PCP - General Internal Medicine 12/08/22 Elijah Palumbo MD [address] [place] [address] Referring Physician Gastroenterology 07/11/24 Truman Dillon MD [phone] [place] [address] Surgeon Colon and Rectal Surgery 07/23/24 Davin Madsen MD [address] [facility] [address] [place] [address] X Ray Operator Gastroenterology 07/23/24 documented as of this encounter
--- OUTSIDE RECORDS SUMMARY | 2024-12-19 01:21 | XMS_ITS | Referral Summary ---
Author Organization [facility] Address [address] [place] [address] Care Team Providers Care Invasive Physician Name Role Phone Marco Granados MD Primary Care Provider [phone] Source Comments [facility],non-owned Affiliates and Associated Physician Practices is amultiple site organization consisting of ambulatory clinics and hospital sitesin [place], [place], [place] and [place]. This disclosure is being madepursuant to the Care Everywhere program and may not contain all information available regarding this patient. Last updated 18.[facility] Active Problems Problem Noted Date Diagnosed [...] of Treatment Not on file Care Teams Invasive Physician Relationship Specialty Start Date End Date Marco Granados MD [address] [place] [address] PCP - General Internal Medicine 11/23/17
--- OUTSIDE RECORDS SUMMARY | 2024-12-19 01:21 | XMS_ITS | Encounter Summary ---
Author Organization [facility] Facility Care Team Providers Care Rental Representative Name Role Phone Delia Harry MD Primary Care Provider [phone] Ysabel Winters MD Primary Care Provider [phone] Jacey Handley MD Primary Care Provider [phone] Elijah Palumbo MD Unavailable [phone] Truman Dillon MD Unavailable [phone] Davin Madsen MD Unavailable [phone] Encounter Details Date Type Department Care Team (Latest Contact Info) Description 09/24/2018 Orders Only [facility] CLINCONV ProviderRobert MD [address] [place] [address] Social History Tobacco Use Types Packs/Day Years Used Date Smoking Tobacco: Never Alcohol Use Standard Drinks/Week Comments Yes 0 (1 standard drink = 0.6 oz pur e alcohol) Comments Unknown Sex and Gender Information Value Date Recorded Sex Assigned at Not on file Legal Sex Female 1:15 AM SPECIAL NEEDS BABYSITTER Gender Identity Female 10/30/2020 9:29 PM SPECIAL NEEDS BABYSITTER Sexual Orientation Straight 10/30/2020 9: 29 PM SPECIAL NEEDS BABYSITTER documented as of this encounter Plan of Treatment Not on file documented as of this encounter Procedures Procedure Name Priority Date/Time Associated Diagnosis Comments PROCEDURE - RESULT 09/24/2018 12 :00 AM SPECIAL NEEDS BABYSITTER documented in this encounter Results * PROCEDURE - RESULT (09/24/2018 12:00 AM SPECIAL NEEDS BABYSITTER) Narrative 09/24/2018 12:00 AM SPECIAL NEEDS BABYSITTER Ordered by an unspecified provider. us Historical Provider Final Res ult documented in this encounter Visit Diagnoses Not on filedocumented in this encounter Care Teams Rental Representative Relationship Specialty Start Date End Date Delia Harry MD [address] [facility] [address] [place] [address] PCP - General 01/18/19 12/06/20 Ysabel Winters MD [address] [facility] [address] [place] [address] PCP - General 12/07/20 12/07/22 Jacey [place] [address] PCP - General Internal Medicine 12/08/22 Elijah Palmubo MD [address] [place] [address] Referring Physician Gastroenterology 07/11/24 Truman Dillon MD [phone] [place] [address] Surgeon Colon and Rectal Surgery 07/23/24 Davin Madsen MD [address] [facility] [address] [place] [address] Business Functional Analyst Gastroenterology 07/23/24 documented as of this encounter
--- OUTSIDE RECORDS SUMMARY | 2024-12-19 01:21 | XMS_ITS | Encounter Summary ---
Author Organization [facility] Address [address] [place] [address] Phone Care Team Providers Care Barometers Calibrator Name Role Phone Everett Arriaga MD Unavailable [phone] Jacey Handley MD Primary Care Provider [phone] Reason for Visit * Reason Onset Date Comments Canopy Call 08/09/2024 Encounter Details Date Type Department Care Team (Late st Contact Info) Description 08/09/2024 Telephone [facility] [address] [place] [address] Everett Arriaga MD [address] [place] [address] Canopy Call Social History Tobacco [...] Arriaga MD Blunk, Jennifer A., RMA; Cc [facility] Nurse Pool3 hours ago (8:40 [...] AM CDT Lab [facility] [address] [address] Lab, Cc [facility] 02/28/2025 11:00 AM CDT Ancillary Procedure [facility] [address] [phone] 02/28/2025 11:30 AM CDT Office Visit [facility] [address] [address] Everett Arriaga MD [address] [place] [address] documented as of this encounter Results * (ABNORMAL) CMP (COMPREHENSIVE METABOLIC PANEL) (08/30/2024 9:25 AM CDT) Glucose 97 70 - 105 mg/dL [facility] Blood Urea Nitrogen 9 7 - 25 mg/dL [facility] Creatinine 0.7 0.6 - 1.2 mg/dL [facility] Sodium 129(L) 136 - 145 mEq/L [facility] Potassium 4.8 3.5 - 5.1 mEq/L [facility] Chloride 90(L) 98 - 107 mEq/L [facility] Bicarbonate 30 21 - 31 mEq/L [facility] Total Bilirubin 1.2(H) 0.3 - 1.0 mg/dL [facility] Alk. Phosphatase 58 34 - 104 U/L [facility] Aspartate Aminotransferase 22 13 - 39 U/L [facility] Alanine Aminotransferase 12 7 - 52 U/L [facility] Total Protein 7.0 6.4 - 8.9 g/dL [facility] Albumin 4.5 3.5 - 5.7 g/dL [facility] Calcium 10.0 8.6 - 10.3 mg/dL [facility] Anion Gap 13.8 7.0 - 15.0 mEq/L [facility] Globulin 2.5 2.0 - 3.5 g/dL [facility] EGFR 85 >60 ml/min/1. 73m2 [facility] Comment: This eGFR is calculated using 2020 CKD-EPI Creatinine equation without race modifier based on the NKF-ASN task force recommendations Blood 08/30/2024 9:25 AM CDT Narrative [facility] - 08/30/2024 11:54 AM CDT Release to patient->Immediate IS THE PATIENT REQUIRED TO BE FASTING FOR 8 HOURS?->No us Everett Arriaga MD CHEMISTRY ORDERABLES Final Result [facility] [place] [address], documented in this encounter Visit Diagnoses Diagnosis 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, estrogen receptor positive (HCC)- Primary 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, estrogen receptor positive (HCC) documented in this encounter Additional Health Concerns Assessment Noted Time PHQ-9 Depression Total Score: 1 01/13/20 21 3:49 PM HIM DIRECTOR documented as of this encounter Care Teams Barometers Calibrator Relationship Specialty Start Date End Date Jacey Handley MD [address] [place] [address] PCP - General Internal Medicine 08/18/22 Everett Arriaga MD [address] [place] [phone] Consulting Physician Oncology 10/20/20 documented as of this encounter
--- OUTSIDE RECORDS SUMMARY | 2024-12-19 01:21 | XMS_ITS | Encounter Summary ---
Author Organization [facility] Address [address] [place] [address] Phone Care Team Providers Care Solutions Market Consultant Name Role Phone Delia Harry MD Primary Care Provider [phone] Ysabel Winters MD Primary Care Provider [phone] Jacey Handley MD Primary Care Provider [phone] Elijah Palumbo MD Unavailable [phone] Truman Dillon MD Unavailable [phone] Davin Madsen MD Unavailable [phone] Reason for Visit * Reason Onset Date Comments Zoom invite 09/22/2020 1:44pm YR spoke with Ms. Blancas and set her up for testing 10/01/2020 10:00am Encounter Details Date Type Department Care Team (Late st Contact Info) Description 09/22/2020 Documentation [facility] [address] [place] [address] First Floor [address] [place] [address] Ewelina Fung CNA Zoom invite (1:44pm YR [...] on file Legal Sex Female 1:15 AM FOOD SERVICE HELPER Gender Identity Female 10/30/2020 9:29 PM FOOD SERVICE HELPER Sexual Orientation Straight 10/30/2020 9: 29 PM FOOD SERVICE HELPER documented as of this encounter Plan of Treatment Not on file documented as of this encounter Visit Diagnoses Not on filedocumented in this encounter Care Teams Solutions Market Consultant Relationship Specialty Start Date End Date Delia Harry MD [address] [facility] [address] [place] [address] PCP - General 01/18/19 12/06/20 Ysabel Winters MD [address] [facility] [address] [place] [address] PCP - General 12/07/20 12/07/22 Jacey Handley MD [place] [facility] [place] [address] PCP - General Internal Medicine 12/08/22 Elijah Palumbo MD [address] [place] [address] Referring Physician Gastroenterology 07/11/24 Truman Dillon MD [phone] [place] [address] Surgeon Colon and Rectal Surgery 07/23/24 Davin Madsen MD [address] [facility] [address] [place] [address] High School Science Teacher Gastroenterology 07/23/24 documented as of this encounter
--- OUTSIDE RECORDS SUMMARY | 2024-12-19 01:21 | XMS_ITS | Clinical Summary ---
Author Organization [facility] Address [facility] [facility] [place] [address] [place] [address] Care Team Providers Care Kelp Gatherer Name Role Phone Gen Kirk MD Unavailable [phone] Miguel Angel Tamayo MD Unavailable [phone] Jacey Handley MD Primary Care Provider [phone] Allergies No known active allergies Medications atorvastatin [...] CDT Appointment [facility] Mammography [place], [place] [id number] Dora Nunez, PALLIATIVE NURSE [address] [place] [address] Health Maintenance Due Date Last [...] BONE DENSITY/DEXA Routine 10/25/2019 1:5 0 PM [employer] Postmenopausal from Last 3 Months or Most Recently Relevant to Health Maintenance Results * BONE DENSITY/DEXA (10/25/2019 1:50 PM [employer]) Anatomical Region Laterality Modality Bone Mammography 10/25/2019 3:00 PM [employer] Impressions 10/25/2019 3:02 PM [employer] Impression: BMD measured at AP lumbar spine at WHO category level of osteoporosis. BMD measured at both total hips and both femoral necks at level of osteopenia. Narrative 10/25/2019 3:02 PM [employer] Examination: DEXA Bone densitometry EXAM DATE: ??10/25/2019 [...] Most Recently Relevant to Health Maintenance Insurance [facility] Care Teams Kelp Gatherer Relationship Specialty Start Date End Date Jacey Handley MD [address] [facility] [address] [place] [address] PCP - General INTERNAL MEDICINE 01/26/23 Gen Kirk MD [place] [employer] INTERVENTIONAL CARDIOLOGY 08/28/19 Miguel Angel Tamayo MD [address] [place] [address] Referring Physician GENERAL SURGERY 08/20/19
--- OUTSIDE RECORDS SUMMARY | 2024-12-19 01:21 | XMS_ITS | Clinical Summary ---
Author Organization [facility] Address [address] [place] [address] Phone Care Team Providers Care Low Pressure Kettle Operator Name Role Phone Jacey Handley MD Primary Care Provider [phone] Allergies No known active allergies Medications Medication [...] Comments Blood Pressure 128/70 11/09/2022 8:47 AM STATE PATROL OFFICER Pulse 72 11/09/2022 8:47 AM STATE PATROL OFFICER Temperature 35.3 ??C (95.5 ??F) 11/09/2022 8:47 AM CS T Respiratory Rate - - Oxygen Saturation - - Inhaled Oxygen Concentration - - Weight 50.3 kg (111 lb) 11/09/2022 8:47 AM STATE PATROL OFFICER Height 165.1 cm (5' 5 ) 11/09/2022 8:47 AM STATE PATROL OFFICER Body Mass Index 18.47 11/09/2022 8:47 AM STATE PATROL OFFICER Plan of Treatment Health Maintenance Due Date Last Done Comments COVID-19 Vaccine ( season) 2024 09/01/2021, 01/15/2021, 12/25/2020 Influenza Vaccine (#1) 2024 09/03/2022 Pneumococcal PPSV23/PCV13 65 + Years / High and Highest Risk Completed 09/03/2019, 11/29/2016 Care Teams Low Pressure Kettle Operator Relationship Specialty Start Date End Date Jacey Handley MD [address] [place] [address] PCP - General Internal Medicine 10/10/22
--- OUTSIDE RECORDS SUMMARY | 2024-12-19 01:21 | XMS_ITS | Patient Health Summary ---
Author Organization [facility] Address [address] [place] [address] Care Team Providers Care Pediatric Physician Name Role Phone Marco Granados MD Primary Care Provider [phone] Note from [facility],non-owned Affiliates and Associated Physician Practices is amultiple site organization consisting of ambulatory clinics and hospital sitesin [place], [place] and [place]. This disclosure is being madepursuant to the Care Everywhere program and may not contain all information available regarding this patient. Last updated 18.[facility] Active Problems Problem Noted Date Diagnosed Date [...] BRAIN METABOLIC EVAL IMAGING (11/23/2017 2:15 PM CUTTER GRINDER) Narrative [facility] - 12/25/2017 10:41 AM CUTTER GRINDER No Dictation. Altaf Hernandez DO [place] ORDERABLES [facility] Care Teams Pediatric Physician Relationship Specialty Start Date End Date Marco Granados MD [address] [place] [address] (work) PCP - General Internal Medicine 11/23/17
--- OUTSIDE RECORDS SUMMARY | 2024-12-19 01:21 | XMS_ITS | Clinical Summary ---
Author Organization [facility] Address [address] [place] [place] [address] Care Team Providers Care Deliverer Outside Name Role Phone Marco Granados MD Primary Care Provider [phone] Source Comments [facility],non-owned Affiliates and Associated Physician Practices is amultiple site organization consisting of ambulatory clinics and hospital sitesin [place], [place], [place] and [place]. This disclosure is being madepursuant to the Care Everywhere program and may not contain all information available regarding this patient. Last updated 18.[facility] Active Problems Problem Noted Date Diagnosed [...] age to complete this topic Care Teams Deliverer Outside Relationship Specialty Start Date End Date Marco Granados MD [address] [place] [address] PCP - General Internal Medicine 11/23/17
--- OUTSIDE RECORDS SUMMARY | 2024-12-19 01:21 | XMS_ITS | Encounter Summary ---
Author Organization [facility] Address [address] [place] [address] Phone Care Team Providers Care Check Grader Name Role Phone Delia Harry MD Primary Care Provider [phone] Ysabel Winters MD Primary Care Provider [phone] Jacey Handley MD Primary Care Provider [phone] Elijah Palumbo MD Unavailable [phone] Truman Dillon MD Unavailable [phone] Davin Madsen MD Unavailable [phone] Encounter Details Date Type Department Care Team [...] on file Legal Sex Female 1:15 AM MANIPULATOR OPERATOR Gender Identity Female 10/30/2020 9:29 PM MANIPULATOR OPERATOR Sexual Orientation Straight 10/30/2020 9: 29 PM MANIPULATOR OPERATOR documented as of this encounter Plan of Treatment Not on file documented as of this encounter Procedures Procedure Name Priority Date/Time Associated Diagnosis Comments SCAN - RADIOLOGY/IMAGING 10/28/2020 documented in this encounter Results * SCAN - RADIOLOGY/IMAGING (10/28/2020) Anatomical Region Laterality Modality Other us Provider Scanning Final Result documented in this encounter Visit Diagnoses Not on filedocumented in this encounter Care Teams Check Grader Relationship Specialty Start Date End Date Delia Harry MD [address] [place] [address] [place] [address] PCP - General 01/18/19 12/06/20 Ysabel Winters MD [address] [facility] [address] [place] [address] PCP - General 12/07/20 12/07/22 [place]acey [place] [address] PCP - General Internal Medicine 12/08/22 Elijah Palumbo MD [address] [place] [address] Referring Physician Gastroenterology 07/11/24 Truman Dillon MD [phone] [place] [address] Surgeon Colon and Rectal Surgery 07/23/24 Davin Madsen MD [address] [facility] [address] [place] [address] Plater Supervisor Gastroenterology 07/23/24 documented as of this encounter
--- OUTSIDE RECORDS SUMMARY | 2024-12-19 01:21 | XMS_ITS | Encounter Summary ---
Author Organization [facility] Address [address] [place] [address] Phone Care Team Providers Care Cosmetologist Name Role Phone Everett Arriaga MD Unavailable [phone] Jacey Handley MD Primary Care Provider [phone] Encounter Details Date Type Department Care Team (Late Contact Info) Description 08/12/2024 Telephone [facility] [address] [address] Everett Arriaga MD [address] [place] [address] Social History Tobacco Use Types Packs/Day [...] AM CDT Lab [facility] [address] [address] Lab, Cc [facility] 02/28/2025 11:00 AM CDT Ancillary Procedure [facility] [address] [phone] 02/28/2025 11:30 AM CDT Office Visit [facility] [address] [phone] Everett Arriaga MD [address] [place] [phone] documented as of this encounter Visit Diagnoses Not on filedocumented in this encounter Additional Health Concerns Assessment Noted Time PHQ-9 Depression Total Score: 1 01/13/20 21 3:49 PM FRANCHISE SALES DIRECTOR documented as of this encounter Care Teams Cosmetologist Relationship Specialty Start Date End Date Jacey Handley MD [address] [place] [address] [place] [address] PCP - General Internal Medicine 08/18/22 Everett Arriaga MD [address] [place] [address] Consulting Physician Oncology 10/20/20 documented as of this encounter
--- OUTSIDE RECORDS SUMMARY | 2024-12-19 01:22 | XMS_ITS | Encounter Summary ---
Author Organization [facility] Address [address] [place] [address] Phone Care Team Providers Care Blow Molding Machine Tender Name Role Phone Delia Harry MD Primary Care Provider [phone] Everett Arriaga MD Unavailable [phone] Jacey Handley MD Primary Care Provider [phone] Reason for Visit * Reason Comments Medication Refill Encounter Details Date Type Department Care Team (Late st Contact Info) Description 10/21/2021 Refill [facility] [address] [address] Everett Arriaga MD [address] [place] [phone] Medication Refill Social History Tobacco Use [...] Everett Arriaga MD - 10/22/2021 10:42 AM SOLUTION ENGINEER Ok to fill TION ENGINEER * Telephone Encounter - Ruperto Olivarez RN - 10/22/2021 10:27 AM CST Refill request from pharmacy. Refill if appropriate. TION ENGINEER documented in this encounter Plan of Treatment Upcoming Encounters Date Type Department Care Team (Late st Contact Info) Description 02/28/2025 10:15 AM CDT Lab [facility] [address] [phone] Lab, [facility] 02/28/2025 11:00 AM CDT Ancillary Procedure [facility] [address] [phone] 02/28/2025 11:30 AM CDT Office Visit [facility] [address] [phone] Everett Arriaga MD [address] [place] [phone] documented as of this encounter Visit Diagnoses Diagnosis 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, estrogen receptor positive (HCC) Other osteoporosis, unspecified pathological fracture presence documented in this encounter Additional Health Concerns Assessment Noted Time PHQ-9 Depression Total Score: 1 01/13/20 21 3:49 PM SOLUTION ENGINEER documented as of this encounter Care Teams Blow Molding Machine Tender Relationship Specialty Start Date End Date Delia Harry MD [address] [address] PCP - General Family Medicine 08/13/19 08/16/22 [place] [address] PCP - General Internal Medicine 08/18/22 Everett Arriaga MD [address] [place] [address] Consulting Physician Oncology 10/20/20 documented as of this encounter
--- OUTSIDE RECORDS SUMMARY | 2024-12-19 01:22 | XMS_ITS | Encounter Summary ---
Author Organization [facility] Address [address] [place] [address] Phone Care Team Providers Care Change Release Manager Name Role Phone Delia Harry MD Primary Care Provider [phone] Ysabel Winters MD Primary Care Provider [phone] Jacey Handley MD Primary Care Provider [phone] Elijah Palumbo MD Unavailable [phone] Truman Dillon MD Unavailable [phone] Davin Madsen MD Unavailable [phone] Encounter Details Date Type Department Care Team (Late st Contact Info) Description 10/24/2019 Orders Only [facility] Gastroenterology [address] [facility] Office [address] [place] [phone] Lolis Mcallister MD [address] [place] [address] [address] [place] [address] Social History Tobacco Use Types Packs/Day Years Used Date Smoking Tobacco: Never Smokeless Tobacco: Never Alcohol Use Standard Drinks/Week Comments Yes 2 (1 standard drink = 0.6 oz pur e alcohol) Comments No Sex and Gender Information Value Date Recorded Sex Assigned at Not on file Legal Sex Female 1:15 AM CHILD STUDY TEAM DIRECTOR Gender Identity Female 10/30/2020 9:29 PM CHILD STUDY TEAM DIRECTOR Sexual Orientation Straight 10/30/2020 9: 29 PM CHILD STUDY TEAM DIRECTOR documented as of this encounter Plan of Treatment Not on file documented as of this encounter Visit Diagnoses Not on filedocumented in this encounter Care Teams Change Release Manager Relationship Specialty Start Date End Date Delia Harry MD [address] [facility] [address] [place] [address] PCP - General 01/18/19 12/06/20 Ysabel Winters MD [address] [facility] [address] [place] [address] PCP - General 12/07/20 12/07/22 [place] [address] PCP - General Internal Medicine 12/08/22 Elijah Palumbo MD [address] [place] [address] Referring Physician Gastroenterology 07/11/24 Truman Dillon MD [address] [facility] [phone] [place] [address] Surgeon Colon and Rectal Surgery 07/23/24 Davin Madsen MD [address] [facility] [address] [facility] [address] [place] [address] Diagnostic Sales Specialist Gastroenterology 07/23/24 documented as of this encounter
--- OUTSIDE RECORDS SUMMARY | 2024-12-19 01:22 | XMS_ITS | Encounter Summary ---
Author Organization [facility] Address [address] [place] [address] Phone Care Team Providers Care Territory Development Manager Name Role Phone Delia Harry MD Primary Care Provider Everett Arriaga MD Unavailable Jacey Handley MD Primary Care Provider Reason for Visit * Reason Comments Medication Refill Encounter Details Date Type Department Care Team (Late st Contact Info) Description 07/17/2022 Refill [facility] [place] [address] [place] [address] Everett Arriaga MD [address] [place] [address] Medication Refill Social History Tobacco Use [...] * Telephone Encounter - Emma Thacker, KELSEY, ENTRY MANAGER - 07/18/2022 10:20 AM CDT Okay to refill. * Telephone Encounter - Christiana Sheppard RN - 07/18/2022 8:03 AM CDT Refill request from pharmacy Last filled 10/22/2021 #90 R-2 Please fill if appropriate documented in this encounter Plan of Treatment Upcoming Encounters Date Type Department Care Team (Late st Contact Info) Description 02/28/2025 10:15 AM CDT Lab [facility] [address] [phone] Lab, Cc [facility] 02/28/2025 11:00 AM CDT Ancillary Procedure [facility] [address] [phone] 02/28/2025 11:30 AM CDT Office Visit [facility] [address] [phone] Everett Arriaga MD [address] [place] [phone] documented as of this encounter Visit Diagnoses Diagnosis 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, estrogen receptor positive (HCC) Other osteoporosis, unspecified pathological fracture presence documented in this encounter Additional Health Concerns Assessment Noted Time PHQ-9 Depression Total Score: 1 01/13/20 21 3:49 PM TRUCK MECHANIC APPRENTICE documented as of this encounter Care Teams Territory Development Manager Relationship Specialty Start Date End Date Delia Harry MD [address] [address] PCP - General Family Medicine 08/13/19 08/16/22 Jacey Handley MD [address] [place] [address] PCP - General Internal Medicine 08/18/22 Everett Arriaga MD [address] [place] [phone] Consulting Physician Oncology 10/20/20 documented as of this encounter
--- OUTSIDE RECORDS SUMMARY | 2024-12-19 01:22 | XMS_ITS | Clinical Summary ---
Author Organization [facility] Address [address], [facility] [address] [place] [address] Phone Care Team Providers Care Scalper Operator Name Role Phone Everett Arriaga MD Unavailable [phone] Jacey Handley MD Primary Care Provider [phone] Allergies Active Allergy Reactions Criticality Noted Date [...] Lnp-s, Pf, 3 0 Mcg/0.3 Ml Dose ([employer]) 01/15/2021,12/25/2020 Hepatitis A Vaccine 06/25/2019,03/19/2018 Hepatitis A, [...] AM CDT Lab [facility] [address] [address] Lab, Cc [facility] 02/28/2025 11:00 AM CDT Ancillary Procedure [facility] [address] [address] 02/28/2025 11:30 AM CDT Office Visit [facility] [address] [place] [address] Everett Arriaga MD [address] [place] [address] Health Maintenance Due Date Last [...] Procedure Name Priority Date/Time Associated Diagnosis Comments [facility] BONE DENSITOMETRY AXIAL SKELETON Routine 11/23/2023 9:58 AM ASSOCIATE DEAN OF STUDENTS Encounter for monitoring aromatase inhibitor therapy from Last 3 Months or Most Recently Relevant to Health Maintenance Results * [facility] BONE DENSITOMETRY AXIAL SKELETON (11/23/2023 9:58 AM ASSOCIATE DEAN OF STUDENTS) Anatomical Region Laterality Modality BODY N/A Other Narrative 11/23/2023 11:24 AM ASSOCIATE DEAN OF STUDENTS EXAMINATION: [facility] BONE DENSITOMETRY AXIAL SKELETON INDICATIONS: Encounter for [...] Signature: 11/23/2023 11:24:30 us Emma Martínez APRN, SERVOMECHANISM DESIGNER IMG DEXA ORDERABL ES Final Result from Last 3 Months or Most Recently Relevant to Health Maintenance Insurance MEDICARE C [facility] Care Teams Scalper Operator Relationship Specialty Start Date End Date Jacey Handley MD [address] [place] [address] PCP - General Internal Medicine 08/18/22 Everett Arriaga MD [address] [place] [id number] Consulting Physician Oncology 10/20/20
--- OUTSIDE RECORDS SUMMARY | 2024-12-19 01:22 | XMS_ITS | Referral Summary ---
Author Organization [facility] [place] Address [address] [place] [address] Care Team Providers Care Mixing Tumbler Operator Name Role Phone Jacey Handley MD Primary Care Provider [phone] Elijah Palumbo MD Unavailable [phone] Truman Dillon MD Unavailable [phone] Dvain Madsen MD Unavailable [phone] Encounters Date Type Department Care Team Description 10/04/2024 12:15 PM PARTS COUNTER CLERK Telemedicine [facility] Surgery [address] [facility] 2nd Floor [address] [place] [address] Truman Dillon MD Constipation, unspecified constipation type (Primary Dx) 10/02/2024 Telephone [facility] Surgery [address] [place] [address] Medical Office Building 4 [address] [place] [address] Angelina Brooks, DEMETRIA 09/30/2024 Telephone [facility] Surgery [address] [place] [address] Medical Office Building [address] [place] [address] Shonda Alarcon, DEMETRIA 09/26/2024 7:36 AM PARTS COUNTER CLERK - 09/26/2024 11:59 PM PARTS COUNTER CLERK Hospital Encounter [facility] [address] [place] [address] Constipation, unspecified constipation type Discharge Disposition: Discharge [...] (KENALOG) 0.1 % cream 1 Active zoledronic npix-hakeregL-n ater (RECLAST) 5 mg/100 mL piggyback 2 [...] (07/16/2019): Added automatically from request for surgery [id number] 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 Stiffness of shoulder [...] on file Legal Sex Female 1:15 AM PARTS COUNTER CLERK Gender Identity Female 10/30/2020 9:29 PM PARTS COUNTER CLERK Sexual Orientation Straight 10/30/2020 9: 29 PM PARTS COUNTER CLERK Last Filed Vital Signs Vital Sign Reading [...] on file Medical Devices Implanted Type Area Adventure Guide Device Identifier Shelf Expiration Date Model / Serial / Lot Shoulder Replacement Right: Shoulder Procedures Procedure Name Priority Date/Time Associated Diagnosis Comments FL ENEMA W/DEFECO Schedule Routine, Read Routine (OP Routine) 09/26/2024 10:11 AM PARTS COUNTER CLERK Constipation, unspecified constipation type DEXA TBS AXIAL SKELETON BONE DENSITY 1 OR MORE SITES Schedule Routine, Read Routine (OP Routine) 01/01/2024 12:40 PM PARTS COUNTER CLERK Osteoporosis, unspecified osteoporosis type, unspecified pathological fracture presence from Last 3 Months or Most Recently Relevant to Health Maintenance Results * [place] Defecogram (09/26/2024 10:11 AM PARTS COUNTER CLERK) Anatomical Region Laterality Modality Body N/A Radio Fluoroscop y 09/26/2024 12:0 7 PM PARTS COUNTER CLERK Impressions 09/26/2024 12:45 PM PARTS COUNTER CLERK 1. Small anterior and posterior rectoceles. 2. [...] Kia Keating M.D. Narrative 09/26/2024 12:45 PM PARTS COUNTER CLERK EXAMINATION: DEFECOGRAM HISTORY: 84-year-old female with history [...] pelvic floor, strain, and defecate. FINDINGS: The de icer finisher radiograph mild stool burden. With cough, incontinence [...] pelvic floor, strain, and defecate. FINDINGS: The de icer finisher radiograph mild stool burden. With cough, incontinence [...] 1 or more sites (01/01/2024 12:40 PM PARTS COUNTER CLERK) Anatomical Region Laterality Modality Wrist, Body N/A Radiographic Daksha ging Narrative 01/03/2024 11:35 AM PARTS COUNTER CLERK Patient Name: Vanda Blancas Date of : 1940 Date of scan: 01/01/2024 Bone mineral density was performed on a [employer] Discovery Densitometer. ?? Based on machine cross-calibration [...] by the International Society of Clinical Densitometry. [id number] Ayo Julien MD IMG DXA PROCEDURES Final Result from Last 3 Months or Most Recently Relevant to Health Maintenance Insurance MEDICARE SOLUTIONS MEDICARE SOLUTIONS MEDICARE SOLUTIONS Advance Directives For more information, please contact: [phone] Documents on File Type Date Recorded Patient Water Hauler Expl anation ADVANCE DIRECTIVE 10/02/2018 12:00 AM [facility] OF TOOL DESIGNER APPRENTICE FINANCIAL/MEDICAL * Full Code (Latest Code Status on File) Date Activated Date Inactivated Comments 07/19/2019 10:55 AM 07/19/2019 6:45 PM Care Teams Mixing Tumbler Operator Relationship Specialty Start Date End Date Jacey Handley MD [address] [place] [address] PCP - General Internal Medicine 12/08/22 Elijah Palumbo MD [address] [place] [address] Referring Physician Gastroenterology 07/11/24 Truman Dillon MD [address] [facility] [phone] [place] [address] Surgeon Colon and Rectal Surgery 07/23/24 Davin Madsen MD [address] [facility] [address] [facility] [address] [place] [address] Hopper Attendant Gastroenterology 07/23/24
--- OUTSIDE RECORDS SUMMARY | 2024-12-19 01:22 | XMS_ITS | Clinical Summary ---
Author Organization 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 Stiffness of shoulder joint 11/29/2011 Arthralgia of shoulder 11/24/2011 Encounters Date Type Department Care Team Description 10/04/2024 12:15 PM LIBRARY TECHNICAL ASSISTANT Telemedicine [facility] Surgery [address] [facility] 2nd [address] [place] [address] Truman Dillon MD Constipation, unspecified constipation type (Primary Dx) 10/02/2024 Telephone [facility] Surgery [address] [place] [address] Medical Office Building 4 [address] [place] [address] Angelina Brooks, DEMETRIA 09/30/2024 Telephone [facility] Surgery [address] [place] [address] Office Building [address] [place] [address] Shonda Alarcon, DEMETRIA 09/26/2024 7:36 AM LIBRARY TECHNICAL ASSISTANT - 09/26/2024 11:59 PM LIBRARY TECHNICAL ASSISTANT Hospital Encounter [facility] [address] [place] [address] Constipation, unspecified constipation type Discharge Disposition: Discharge [...] on file Legal Sex Female 1:15 AM LIBRARY TECHNICAL ASSISTANT Gender Identity Female 10/30/2020 9:29 PM LIBRARY TECHNICAL ASSISTANT Sexual Orientation Straight 10/30/2020 9: 29 PM LIBRARY TECHNICAL ASSISTANT Obstetrics History Last Filed Vital Signs Vital [...] history exists Medical Devices Implanted Type Area Needle Valve Operator Device Identifier Shelf Expiration Date Model / Serial / Lot Shoulder Replacement Right: Shoulder Procedures Procedure Name Priority Date/Time Associated Diagnosis Comments [place] ENEMA W/DEFECO Schedule Routine, Read Routine (OP Routine) 09/26/2024 10:11 AM LIBRARY TECHNICAL ASSISTANT Constipation, unspecified constipation type DEXA TBS AXIAL SKELETON BONE DENSITY 1 OR MORE SITES Schedule Routine, Read Routine (OP Routine) 01/01/2024 12:40 PM LIBRARY TECHNICAL ASSISTANT Osteoporosis, unspecified osteoporosis type, unspecified pathological fracture presence from Last 3 Months or Most Recently Relevant to Health Maintenance Results * [place] Defecogram (09/26/2024 10:11 AM LIBRARY TECHNICAL ASSISTANT) Anatomical Region Laterality Modality Body N/A Radio Fluoroscop y 09/26/2024 12:0 7 PM LIBRARY TECHNICAL ASSISTANT Impressions 09/26/2024 12:45 PM LIBRARY TECHNICAL ASSISTANT 1. Small anterior and posterior rectoceles. 2. [...] Kia Keating M.D. Narrative 09/26/2024 12:45 PM LIBRARY TECHNICAL ASSISTANT EXAMINATION: DEFECOGRAM HISTORY: 84-year-old female with history [...] pelvic floor, strain, and defecate. FINDINGS: The medicare specialist radiograph mild stool burden. With cough, incontinence [...] pelvic floor, strain, and defecate. FINDINGS: The medicare specialist radiograph mild stool burden. With cough, incontinence [...] 1 or more sites (01/01/2024 12:40 PM LIBRARY TECHNICAL ASSISTANT) Anatomical Region Laterality Modality Wrist, Body N/A Radiographic Daksha ging Narrative 01/03/2024 11:35 AM LIBRARY TECHNICAL ASSISTANT Patient Name: Rey Blancas Date of : 1940 Date of scan: 01/01/2024 Bone mineral density was performed on a [employer] Discovery Densitometer. ?? Based on machine cross-calibration [...] by the International Society of Clinical Densitometry. [id number] Ayo Julien MD IMG DXA PROCEDURES Final Result from Last 3 Months or Most Recently Relevant to Health Maintenance Insurance MEDICARE SOLUTIONS [facility] MEDICARE Address: [facility] [address] [place] [address] MEDICARE SOLUTIONS MEDICARE SOLUTIONS Advance Directives For more information, please contact: [phone] Documents on File Type Date Recorded Patient Binding Stitcher Expl anation ADVANCE DIRECTIVE 10/02/2018 12:00 AM [facility] OF HR ADVISOR FINANCIAL/MEDICAL * Full Code (Latest Code Status on File) Date Activated Date Inactivated Comments 07/19/2019 10:55 AM 07/19/2019 6:45 PM Care Teams Wood Fence Erector Relationship Specialty Start Date End Date Jacey Handley MD [place] [address] PCP - General Internal Medicine 12/08/22 Elijah Palumbo MD [address] [place] [address] Referring Physician Gastroenterology 07/11/24 Truman Dillon MD [address] [facility] [phone] [place] [address] Surgeon Colon and Rectal Surgery 07/23/24 Davin Madsen MD [address] [facility] [address] [facility] [address] [place] [address] Housing And Residence Life Director Gastroenterology 07/23/24
[2024-12-19 01:34] VITALS: BP 156/90; PULSE 68; RESP 14; O2SAT 99
--- NOTE | 2024-12-19 01:43 | ED.NEUROSD ---
HPI - Neuro Symptoms/Deficit General Chief Complaint: Neuro Symptoms/Deficit Stated Complaint: funny feeling went through my head lightheaded Time Seen by Provider: 12/19/24 01:09 History of Present Illness HPI Narrative: 84-year-old female with a past medical history including previous stroke with no residual deficits, chronic kidney disease, GERD. Today patient presents to the emergency department chief complaint of generalized feeling unwell and felt bilateral tingling in her hands and feet. She had a minor headache. She is not taking any medications for symptom control at home. She states that she saw her primary doctor approximately 9 days ago and was told to start taking slightly more BusPar in response to her anxiety and depression history. She also takes gabapentin as needed for neuropathy. She was otherwise in her normal state of health, no recent injuries or illnesses. No nausea, vomiting, vision changes, abdominal pain, weakness, fatigue, loss of sensation, UTI symptoms, chest pain, shortness of breath. Related Data Home Medications ?Medication ?Instructions ?Recorded ?Confirmed ?Last Taken ?Type atorvastatin 20 mg tablet 20 mg PO DAILY 02/22/22 12/10/24 Unknown History cholecalciferol (vitamin D3) 625 625 mcg PO DAILY 02/22/22 12/10/24 Unknown History mcg (25,000 unit) capsule cyclosporine 0.05 % eye drops in a 1 drp EACH EYE Q12H 02/22/22 12/10/24 Unknown History dropperette (Restasis) levothyroxine 75 mcg capsule 75 mcg PO DAILY 06/13/23 12/10/24 Unknown History bmpntxlvdhsh-rasteacl-qzhtnt 1 tablet PO DAILY 06/30/23 12/10/24 Unknown History tablet (Multivitamin 50 Plus tablet) polyethylene glycol 3350 17 17 g PO .PRN 09/12/23 12/10/24 Unknown History gram/dose oral powder (Miralax) gabapentin 100 mg tablet 100 mg PO DAILY 11/11/24 12/10/24 Unknown History omeprazole 40 mg capsule,delayed 40 mg PO DAILY 11/12/24 12/10/24 Unknown History release buspirone 5 mg tablet 10 mg PO BID 12/10/24 12/10/24 Unknown History Allergies Allergy/AdvReac Type Severity Reaction Status Date / Time No Known Allergies Allergy Verified 12/10/24 12:47 Review of Systems Review of Systems: As reviewed [facility] Past Medical History Medical History Headache around the eyes Hypo-osmolality and hyponatremia Epigastric discomfort Abdominal bloating Epigastric pain Nausea Hx of malignant neoplasm of nasal cavity Hx of breast cancer Adrenal insufficiency Hypothyroidism Surgical History Surgical History Hx of hysterectomy History of right shoulder replacement Family History Family History Sibling Breast cancer Social History Social History Smoking status: Never smoker Alcohol intake: current Alcohol use details: occasional Substance use: never Substance use type: does not use Do You Feel Safe in your Home?: Yes Lack of Transportation: No Lack of Food: Never True Current Housing: I Have Housing Concerned About Future Housing: No Difficulty Paying Gas/Electric Bills: No Difficulty Paying for Meds: No Currently Unemployed: No Education: Master's Degree or Higher Difficulty w/ Childcare or Family Care: No Living arrangements: [facility] Gender identity (if verbalized by the patient): Female Spiritual care concerns: No Exam Narrative: GENERAL: [Well-appearing, well-nourished, and in no acute distress.] HEAD: [Normocephalic, atraumatic.] EYES: [PERRLA and EOMI.] ENT: Nares clear, no rhinorrhea or epistaxis. Mucous membranes moist. NECK: Supple. CHEST: [Clear to auscultation. No respiratory distress.] HEART: [Regular rate and rhythm]. No murmur heard. [Normal peripheral pulses.] ABDOMEN: [Soft, nondistended], [nontender], [No rigidity or guarding] EXTREMITIES: Normal range of motion. [No edema.] SKIN: Warm, dry, no rash. NEURO: [No focal deficits]. Alert and oriented [x3.] No ataxia in the arms or legs, ambulate with a steady gait, normal strength and sensation throughout both arms legs. No sensory deficits. No facial droop, no facial asymmetry. PSYCH: [Normal mood and affect.] Course Vital Signs Vital signs: Vital Signs Temperature 37.1 C 12/18/24 23:05 Pulse Rate 76 12/18/24 23:05 Respiratory Rate 20 12/18/24 23:05 Blood Pressure 161/97 H 12/18/24 23:05 Pulse Oximetry 100 12/18/24 23:05 Oxygen Delivery Room Air 12/18/24 23:05 Temperature 37.1 C 12/18/24 23:05 Pulse Rate 68 12/19/24 01:34 Respiratory Rate 14 12/19/24 01:34 Blood Pressure 156/90 H 12/19/24 01:34 Pulse Oximetry 99 12/19/24 01:34 Oxygen Delivery Room Air 12/18/24 23:05 MDM - Neuro Symptoms/Deficit MDM Narrative Medical decision making narrative: 84-year-old female with history of prior stroke with no residual deficits, hypertension, CKD, GERD. Today patient presents to the emergency department with complaints of generalized feeling unwell with bilateral paresthesias in her hands, face, feet. Symptoms were onset earlier this morning, slowly resolved with time and now she is just complaining of a headache without any neuropathy. Recently stole to start taking more views were in response to her anxiety depression by her PCP. Also has gabapentin as needed but has not been taking this. She is otherwise well-appearing, not any acute distress and has a nonfocal neurological assessment with no residual deficits from prior stroke and no new focal motor functions or sensory changes. She has symmetric strength and sensation and ambulates without a ataxic or antalgic gait. She has stable high blood pressure but no other vital concerns such as tachycardia, fever, hypoxia. A large workup was ordered including head CT, CBC, CMP, troponin, EKG, chest x-ray. Tylenol ordered for her headache. Workup shows no leukocytosis or anemia. Normal platelet count. Electrolytes show some stable hyponatremia which is chronic on review of the EMR. No significant derangements. Normal kidney function, normal glucose and hepatic function panel. Negative troponin. CT of the head shows no acute intracranial process. Chest x-ray my interpretation shows no pneumonia, consolidations, pneumothorax. She has large emphysematous lungs and I did review her previous chest x-rays without any acute or concerning changes. Patient remained asymptomatic while here in the emergency department and stable for discharge home at this time with regular close PCP follow-up. Patient's questions were answered and she was encouraged to call her PCP for short-term appointment or return if she has any new or developing concerns. Medical Records Attestation: I reviewed the patient's medical records. Lab Data Attestation: I reviewed the patient's lab results. 12/18/24 23:21 12/18/24 23:21 Labs: Lab Results 12/18/24 Range/Units 23:21 WBC 4.2 L (4.5-10.0) K/mm3 RBC 4.20 (4.2-5.4) M/mm3 Hgb 12.2 (12.0-15.0) g/dL Hct 37.7 (37.0-47.0) % MCV 89.8 (80-100) fl MCH 29.0 (26-34) pg MCHC 32.4 (32-36) g/dl RDW 13.3 (11.5-14.5) % Plt Count 210 (150-375) k/mm3 MPV 7.9 (7.4-10.4) fl Immature Gran % (Auto) 0.2 (0-0.5) % Neut % (Auto) 51.4 (45.5-73.1) % Lymph % (Auto) 33.3 (18.3-44.2) % [place] % (Auto) 11.8 H (2.6-8.5) % Eos % (Auto) 2.4 (0-4.4) % Baso % (Auto) 0.9 (0.2-1.2) % Lymph # (Auto) 1.41 (0.9-3.2) K/mm3 [place] # (Auto) 0.5 (0.1-0.6) K/mm3 Eos # (Auto) 0.1 (0-0.3) K/mm3 Baso # (Auto) 0.0 (0.0-0.1) K/mm3 Abs Immat Gran (auto) 0.01 (0.00-0.031) K/mm3 Absolute Neuts (auto) 2.2 (1.3-6.7) K/mm3 Absolute Nucleated RBC 0.000 (0.0-0.012) K/mm3 Nucleated RBC % 0.0 (0.0-0.2) % PT 12.3 (11.1-14.7) Seconds INR 0.9 APTT 27.9 (22.3-36.8) Seconds Sodium 130 L (137-145) mmol/L Potassium 4.5 (3.4-5.0) mmol/L Chloride 93 L (98-107) mmol/L Carbon Dioxide 30 (22-30) mmol/L Anion Gap 7 (4-12) mmol/L BUN 8 D (7-17) mg/dL Creatinine 0.57 L (0.7-1.0) mg/dL Estim Creat Clear Calc 49 ml/min Estimated GFR > 60 (59 - ) Glucose 120 H (65-110) mg/dL Calcium 9.5 (8.4-10.2) mg/dL Total Bilirubin 0.8 (0.2-1.3) mg/dL AST 31 (14-36) U/L ALT 17 (6-35) U/L Alkaline Phosphatase 83 (38-126) U/L Troponin I < 0.012 (0.000-0.034) ng/mL Total Protein 7.0 (6.3-8.2) g/dL Albumin 4.5 (3.5-5.1) g/dL Imaging Data Attestation: I personally reviewed and interpreted this imaging study as follows: My impression: Impressions Head CT 12/18/24 23:50 IMPRESSION: No acute intracranial process. Discharge Plan Discharge Clinical Impression: History of CVA (cerebrovascular accident), Paresthesia of both lower extremities, Paresthesia of both hands, Headache Patient Disposition: Home, Self-Care Condition: Stable Instructions: Antibiotic Form, Paresthesia (ED) Additional Instructions: Follow-up with your regular primary care provider. Your transient paresthesias could have been secondary to your BusPar recent increased dose or potentially from her chronic neuropathy. You can continue taking your gabapentin as needed and I encouraged to follow-up with your regular doctor outpatient. Return with any new or developing concerns at any time. Patient Language: Welsh Prescriptions: No Action buspirone 5 mg tablet 10 mg PO BID levothyroxine 75 mcg capsule 75 mcg PO DAILY polyethylene glycol 3350 [Miralax] 17 gram/dose powder 17 g PO .PRN atorvastatin 20 mg tablet 20 mg PO DAILY cholecalciferol (vitamin D3) 625 mcg (25,000 unit) capsule 625 mcg PO DAILY cyclosporine [Restasis] 0.05 % dropperette 1 drp EACH EYE Q12H gabapentin 100 mg tablet 100 mg PO DAILY omeprazole 40 mg capsule,delayed release(DR/EC) 40 mg PO DAILY sucralfate [Carafate] 1 gram tablet 1 g PO TID Qty: 90 0RF Multivitamin 50 Plus Tablet 1 tablet PO DAILY acetaminophen 500 mg tablet 1,000 mg PO TID PRN (Reason: kerri) 7 Days Qty: 42 0RF methocarbamol 750 mg tablet 750 mg PO TID Qty: 30 0RF losartan 25 mg tablet 25 mg PO DAILY Qty: 90 2RF Follow-up/Referrals: PHYSICIAN NOT ON STAFF,NONSTAFF [Primary Care Provider] - Time of Disposition: 01:49
[2024-12-19] MEDS: ACETAMINOPHEN 500 MG TABLET 1000 MG PO (02:02)
[2024-12-19 02:06] VITALS: BP 156/90; PULSE 67; RESP 14; O2SAT 98
== END 2024-12-19 02:08 | disposition home or self-care (01) ==
PROVIDERS: Emergency Provider Student in an Organized Health Care Education/Training Program
DX: R20.2 Paresthesia of skin (principal); R51.9 Headache, unspecified; Z86.73 Personal history of transient ischemic attack (TIA), and cerebral infarction without residual deficits; N18.9 Chronic kidney disease, unspecified; K21.9 Gastro-esophageal reflux disease without esophagitis; G62.9 Polyneuropathy, unspecified; F41.9 Anxiety disorder, unspecified; F32.A Depression, unspecified; E27.40 Unspecified adrenocortical insufficiency; E03.9 Hypothyroidism, unspecified; Z96.611 Presence of right artificial shoulder joint; Z85.3 Personal history of malignant neoplasm of breast; Z85.22 Personal history of malignant neoplasm of nasal cavities, middle ear, and accessory sinuses; Z90.710 Acquired absence of both cervix and uterus; Z79.899 Other long term (current) drug therapy
CPT/HCPCS: 36415; 70450; 71045; 80053; 84484; 85025; 85610; 85730; 93005; 99284; A9270

== ENCOUNTER 2025-01-06 11:30 | Outpatient (CLI) | payer MEDICARE, SELFPAY ==
[2025-01-06 12:03] LABS: Hematocrit 37.1 % (37.0-47.0); Hemoglobin 12.2 g/dL (12.0-15.0); Mean Corpuscular HGB Conc 32.9 g/dl (32-36); Mean Corpuscular Hemoglobin 29.8 pg (26-34); Mean Corpuscular Volume 90.7 fl (80-100); Mean Platelet Volume 8.1 fl (7.4-10.4); Platelet Count Result 233 k/mm3 (150-375); Red Blood Count 4.09 M/mm3 (4.2-5.4); Red Cell Distribution Width 13.2 % (11.5-14.5); White Blood Count 4.8 K/mm3 (4.5-10.0)
[2025-01-06 12:17] LABS: Alanine Aminotransferase 17 U/L (6-35); Albumin Level 4.4 g/dL (3.5-5.1); Alkaline Phosphatase 60 U/L (38-126); Anion Gap 7 mmol/L (4-12); Aspartate Amino Transferase 30 U/L (14-36); Bilirubin,Total 1.2 mg/dL (0.2-1.3); Blood Urea Nitrogen 13 mg/dL (7-17); Calcium 9.5 mg/dL (8.4-10.2); Carbon Dioxide 30 mmol/L (22-30); Chloride 93 mmol/L (98-107); Estimated Glomerular Filt Rate > 60; Glucose 104 mg/dL (65-110); Potassium 4.4 mmol/L (3.4-5.0); Sodium 130 mmol/L (137-145)
[2025-01-06 13:02] LABS: Vitamin D 25 Hydroxy 66.7 ng/mL
[2025-01-06 13:23] LABS: Folic Acid > 20.0 ng/mL (2.76->20)
--- OUTSIDE RECORDS SUMMARY | 2025-01-06 14:25 | XMS_ITS | Clinical Summary ---
Author Organization [facility] Address [address] [place] [address] Care Team Providers Care Field Services Director Name Role Phone Gen Kirk MD Unavailable [phone] Miguel Angel Tamayo MD Unavailable [phone] Ngoc Leach NP Primary Care Provider [phone] Allergies No known active allergies Medications atorvastatin [...] 67 09/20/2019 4:53 PM CDT Temperature 36.2 C (97.1 F) 09/20/2019 4:53 PM CDT Respiratory Rate 20 09/20/2019 4:53 PM CDT Oxygen Saturation 97% 09/20/2019 4:53 PM CDT Inhaled Oxygen Concentration - - Weight 52.2 kg (115 lb 1.3 oz) 09/20/2019 11:22 AM CDT Height 165.1 cm (5' 5 ) 09/20/2019 11:22 AM CDT Body Mass Index 19.15 09/20/2019 11:22 AM CDT Plan of Treatment Upcoming Encounters Date Type Department Care Team (Late st Contact Info) Description 01/06/2025 3:30 PM CRAWLER TRACTOR OPERATOR [facility] [address] [place], [place] [id number] Ngoc Leach NP [address] [place] [phone] 02/25/2025 12:00 PM CDT Appointment [facility] [place], [place] [id number] Dora Nunez NP [address] [place], [place] [id number] Health Maintenance Due Date Last Done Comments [...] BONE DENSITY/DEXA Routine 10/25/2019 1:5 0 PM CRAWLER TRACTOR OPERATOR Postmenopausal from Last 3 Months or Most Recently Relevant to Health Maintenance Results * BONE DENSITY/DEXA (10/25/2019 1:50 PM CRAWLER TRACTOR OPERATOR) Anatomical Region Laterality Modality Bone Mammography 10/25/2019 3:00 PM CRAWLER TRACTOR OPERATOR Impressions 10/25/2019 3:02 PM CRAWLER TRACTOR OPERATOR Impression: BMD measured at AP lumbar spine at WHO category level of osteoporosis. BMD measured at both total hips and both femoral necks at level of osteopenia. Narrative 10/25/2019 3:02 PM CRAWLER TRACTOR OPERATOR Examination: DEXA Bone densitometry EXAM DATE: 10/25/2019 [...] of -1.9 and a Z-Score of 0.2. The [...] a T-score of -2.1 and aZ-Score of -0.1. The patient [...] both femoral necks at level of osteopenia. Evreett Arriaga MD DEXA Final Resul t from Last 3 Months or Most Recently Relevant to Health Maintenance Insurance [facility] Care Teams Field Services Director Relationship Specialty Start Date End Date Ngoc Leach NP [address] [place] [phone] PCP - General Nurse Practitioner Family 01/03/25 Gen Kirk MD [place] Neuropsychiatrist INTERVENTIONAL CARDIOLOGY 08/28/19 Miguel Angel Tamayo MD [address] [place] [id number] Referring Physician GENERAL SURGERY 08/20/19
--- OUTSIDE RECORDS SUMMARY | 2025-01-06 14:25 | XMS_ITS | Patient Health Summary ---
Author Organization [facility] Address [address] [place] [address] Care Team Providers Care Job Checker Name Role Phone Marco Granados MD Primary Care Provider [phone] Note from [facility],non-owned Affiliates and Associated Physician Practices is amultiple site organization consisting of ambulatory clinics and hospital sitesin [place], [place], [place] and [place]. This disclosure is being madepursuant to the Care Everywhere program and may not contain all information available regarding this patient. Last updated 18.[facility] Active Problems Problem Noted Date Diagnosed [...] BRAIN METABOLIC EVAL IMAGING (11/23/2017 2:15 PM SEAMAN) Narrative [facility] - 12/25/2017 10:41 AM SEAMAN No Dictation. Altaf Hernandez DO NM ORDERABLES [facility] Care Teams Job Checker Relationship Specialty Start Date End Date Marco Granados MD [address] [place] [address] (work) PCP - General Internal Medicine 11/23/17
--- OUTSIDE RECORDS SUMMARY | 2025-01-06 14:25 | XMS_ITS | Encounter Summary ---
Author Organization [facility] Address [address] [place] [address] Phone Care Team Providers Care Colorer Hides And Skins Name Role Phone Delia Harry MD Primary Care Provider [phone] Ysabel Winters MD Primary Care Provider [phone] Jacey Handley MD Primary Care Provider [phone] Elijah Palumbo MD Unavailable [phone] Truman Dillon MD Unavailable [phone] Davin Madsen MD Unavailable [phone] Encounter Details Date Type Department Care Team [...] on file Legal Sex Female 1:15 AM CREDIT COLLECTIONS SPECIALIST Gender Identity Female 10/30/2020 9:29 PM CREDIT COLLECTIONS SPECIALIST Sexual Orientation Straight 10/30/2020 9: 29 PM CREDIT COLLECTIONS SPECIALIST documented as of this encounter Plan of Treatment Not on file documented as of this encounter Procedures Procedure Name Priority Date/Time Associated Diagnosis Comments SCAN - RADIOLOGY/IMAGING 10/28/2020 documented in this encounter Results * SCAN - RADIOLOGY/IMAGING (10/28/2020) Anatomical Region Laterality Modality Other us Provider Scanning Final Result documented in this encounter Visit Diagnoses Not on filedocumented in this encounter Care Teams Colorer Hides And Skins Relationship Specialty Start Date End Date Delia Harry MD [address] [place] [address] PCP - General 01/18/19 12/06/20 Ysabel Winters MD [address] [facility] [address] [place] [address] PCP - General 12/07/20 12/07/22 Jacey Handley [place] [address] PCP - General Internal Medicine 12/08/22 Elijah Palumbo MD [address] [place] [address] Referring Physician Gastroenterology 07/11/24 Truman Dillon MD [phone] [place] [address] Surgeon Colon and Rectal Surgery 07/23/24 Daivn Madsen MD [address] [facility] [address] [place] [address] Chip Frier Gastroenterology 07/23/24 documented as of this encounter
--- OUTSIDE RECORDS SUMMARY | 2025-01-06 14:25 | XMS_ITS | Encounter Summary ---
Author Organization [facility] Address [address] [place] [address] Phone Care Team Providers Care Parcel Wrapper Name Role Phone Everett Arriaga MD Unavailable [phone] Jacey Handley MD Primary Care Provider [phone] Encounter Details Date Type Department Care Team (Late Contact Info) Description 08/12/2024 Telephone [facility] [address] [address] Everett Arriaga MD [address] [place] [phone] Social History Tobacco Use Types Packs/Day [...] CDT Lab [facility] [address] [address] Lab, Cc [facility] 02/28/2025 11:00 AM CDT Ancillary Procedure [facility] [address] [address] 02/28/2025 11:30 AM CDT Office Visit [facility] [address] [phone] Everett Arriaga MD [address] [place] [phone] documented as of this encounter Visit Diagnoses Not on filedocumented in this encounter Additional Health Concerns Assessment Noted Time PHQ-9 Depression Total Score: 1 01/13/20 21 3:49 PM QUALITY CONTROL LAB TECH documented as of this encounter Care Teams Parcel Wrapper Relationship Specialty Start Date End Date Jacey Handley MD [address] [place] [address] [place] [address] PCP - General Internal Medicine 08/18/22 Everett Arriaga MD [address] [place] [phone] Consulting Physician Oncology 10/20/20 documented as of this encounter
--- OUTSIDE RECORDS SUMMARY | 2025-01-06 14:25 | XMS_ITS | Referral Summary ---
Author Organization [facility] Address [address] [place] [address] Care Team Providers Care Hr Manager Name Role Phone Marco Granados MD Primary Care Provider [phone] Source Comments [facility],non-owned Affiliates and Associated Physician Practices is amultiple site organization consisting of ambulatory clinics and hospital sitesin [place], [place], [place] and [place]. This disclosure is being madepursuant to the Care Everywhere program and may not contain all information available regarding this patient. Last updated 18.[facility] Food Reporter Active Problems Problem Noted Date Diagnosed Date [...] of Treatment Not on file Care Teams Hr Manager Relationship Specialty Start Date End Date Marco Granados MD [address] [place] [address] PCP - General Internal Medicine 11/23/17
--- OUTSIDE RECORDS SUMMARY | 2025-01-06 14:25 | XMS_ITS | Clinical Summary ---
Author Organization [facility] Address [address] [place] [address] Care Team Providers Care Test Deck Supervisor Name Role Phone Marco Granados MD Primary Care Provider [phone] Source Comments [facility],non-owned Affiliates and Associated Physician Practices is amultiple site organization consisting of ambulatory clinics and hospital sitesin [place], [place], [place] and [place]. This disclosure is being madepursuant to the Care Everywhere program and may not contain all information available regarding this patient. Last updated 18.[facility] Active Problems Problem Noted Date Diagnosed [...] (#1) 2024 DEPRESSION SCREENING 11/20/2024 MEDICARE AWV CALENDAR YEAR 2024 HEPATITIS B VACCINE Aged [...] age to complete this topic Care Teams Test Deck Supervisor Relationship Specialty Start Date End Date Marco Granados MD [address] [place] [address] PCP - General Internal Medicine 11/23/17
--- OUTSIDE RECORDS SUMMARY | 2025-01-06 14:25 | XMS_ITS | Clinical Summary ---
Author Organization [facility] Address [address] [place] [address] Phone Care Team Providers Care Supervisor Partial Denture Department Name Role Phone Jacey Handley MD Primary Care Provider [phone] Allergies No known active allergies Medications Medication [...] Comments Blood Pressure 128/70 11/09/2022 8:47 AM CHIEF INFORMATICS OFFICER Pulse 72 11/09/2022 8:47 AM CHIEF INFORMATICS OFFICER Temperature 35.3 C (95.5 F) 11/09/2022 8:47 AM CHIEF INFORMATICS OFFICER Respiratory Rate - - Oxygen Saturation - - Inhaled Oxygen Concentration - - Weight 50.3 kg (111 lb) 11/09/2022 8:47 AM CHIEF INFORMATICS OFFICER Height 165.1 cm (5' 5 ) 11/09/2022 8:47 AM CHIEF INFORMATICS OFFICER Body Mass Index 18.47 11/09/2022 8:47 AM CHIEF INFORMATICS OFFICER Plan of Treatment Health Maintenance Due Date Last Done Comments COVID-19 Vaccine ( season) 2024 09/01/2021, 01/15/2021, 12/25/2020 Influenza Vaccine (#1) 2024 09/03/2022 Pneumococcal PPSV23/PCV13 65 + Years / High and Highest Risk Completed 09/03/2019, 11/29/2016 Care Teams Supervisor Partial Denture Department Relationship Specialty Start Date End Date Jacey Handley MD [address] [place] [address] PCP - General Internal Medicine 10/10/22
--- OUTSIDE RECORDS SUMMARY | 2025-01-06 14:25 | XMS_ITS | Encounter Summary ---
Author Organization [facility] Address [address] [place] [address] Phone Care Team Providers Care Shoe Repairer Name Role Phone Delia Harry MD Primary Care Provider [phone] Ysabel Winters MD Primary Care Provider [phone] Jacey Handley MD Primary Care Provider [phone] Elijah Palumbo MD Unavailable [phone] Truman Dillon MD Unavailable [phone] Davin Madsen MD Unavailable [phone] Reason for Visit * Reason Onset Date Comments Zoom invite 09/22/2020 1:44pm YR spoke with Ms. Blancas and set her up for testing 10/01/2020 10:00am Encounter Details Date Type Department Care Team (Late st Contact Info) Description 09/22/2020 Documentation [facility] [address] [place] [address] [address] Floor [address] [place] [address] Ewelina Fung CNA Zoom invite (1:44pm YR [...] on file Legal Sex Female 1:15 AM WELDING MACHINE OPERATOR/TENDER Gender Identity Female 10/30/2020 9:29 PM WELDING MACHINE OPERATOR/TENDER Sexual Orientation Straight 10/30/2020 9: 29 PM WELDING MACHINE OPERATOR/TENDER documented as of this encounter Plan of Treatment Not on file documented as of this encounter Visit Diagnoses Not on filedocumented in this encounter Care Teams Shoe Repairer Relationship Specialty Start Date End Date Delia Harry MD [address] [facility] [address] [place] [address] PCP - General 01/18/19 12/06/20 Ysabel Winters MD [address] [facility] [address] [place] [address] PCP - General 12/07/20 12/07/22 Jacey Handley MD [address] [facility] [address] PCP - General Internal Medicine 12/08/22 Elijah Palumbo MD [address] [place] [address] Referring Physician Gastroenterology 07/11/24 Truman Dillon MD [phone] [place] [address] Surgeon Colon and Rectal Surgery 07/23/24 Davin Madsen MD [address] [facility] [address] [place] [address] Army Ranger Gastroenterology 07/23/24 documented as of this encounter
--- OUTSIDE RECORDS SUMMARY | 2025-01-06 14:25 | XMS_ITS | Encounter Summary ---
Author Organization [facility] Address [address] [place] [address] Phone Care Team Providers Care Duplicating Machine Servicer Name Role Phone Everett Arriaga MD Unavailable [phone] Jacey Handley MD Primary Care Provider [phone] Reason for Visit * Reason Onset Date Comments Canopy Call 08/09/2024 Encounter Details Date Type Department Care Team (Late st Contact Info) Description 08/09/2024 Telephone [facility] [address] [place] [address] Everett Arriaga MD [address] [place] [address] Canopy Call Social History Tobacco [...] Arriaga MD Blunk, Jennifer A., RMA; Cc [facility] Nurse Pool3 hours ago (8:40 [...] AM CDT Lab [facility] [address] [address] Lab, Cc [facility] 02/28/2025 11:00 AM CDT Ancillary Procedure [facility] [address] [phone] 02/28/2025 11:30 AM CDT Office Visit [facility] [address] [address] Everett Arriaga MD [address] [place] [phone] documented as of this encounter Results * (ABNORMAL) CMP (COMPREHENSIVE METABOLIC PANEL) (08/30/2024 9:25 AM CDT) Glucose 97 70 - 105 mg/dL [facility] Blood Urea Nitrogen 9 7 - 25 mg/dL [facility] Creatinine 0.7 0.6 - 1.2 mg/dL [facility] Sodium 129(L) 136 - 145 mEq/L [facility] Potassium 4.8 3.5 - 5.1 mEq/L [facility] Chloride 90(L) 98 - 107 mEq/L [facility] Bicarbonate 30 21 - 31 mEq/L [facility] Total Bilirubin 1.2(H) 0.3 - 1.0 mg/dL [facility] Alk. Phosphatase 58 34 - 104 U/L [facility] Aspartate Aminotransferase 22 13 - 39 U/L [facility] Alanine Aminotransferase 12 7 - 52 U/L [facility] Total Protein 7.0 6.4 - 8.9 g/dL [facility] Albumin 4.5 3.5 - 5.7 g/dL [facility] Calcium 10.0 8.6 - 10.3 mg/dL [facility] Anion Gap 13.8 7.0 - 15.0 mEq/L [facility] Globulin 2.5 2.0 - 3.5 g/dL [facility] EGFR 85 >60 ml/min/1. 73m2 CANCER GLOBAL PROJECT MANAGER [facility] Comment: This eGFR is calculated using 2020 CKD-EPI Creatinine equation without race modifier based on the NKF-ASN task force recommendations Blood 08/30/2024 9:25 AM CDT Narrative CANCER GLOBAL PROJECT MANAGER [facility] - 08/30/2024 11:54 AM CDT Release to patient->Immediate IS THE PATIENT REQUIRED TO BE FASTING FOR 8 HOURS?->No us Everett Arriaga MD CHEMISTRY ORDERABLES Final Result CANCER GLOBAL PROJECT MANAGER [facility] [place] [address], documented in this encounter Visit Diagnoses Diagnosis 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, estrogen receptor positive (HCC)- Primary 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, estrogen receptor positive (HCC) documented in this encounter Additional Health Concerns Assessment Noted Time PHQ-9 Depression Total Score: 1 01/13/20 21 3:49 PM HEAD SUGAR REPROCESS OPERATOR documented as of this encounter Care Teams Duplicating Machine Servicer Relationship Specialty Start Date End Date Jacey Handley MD [address] [place] [address] PCP - General Internal Medicine 08/18/22 Everett Arriaga MD [address] [place] [phone] Consulting Physician Oncology 10/20/20 documented as of this encounter
--- OUTSIDE RECORDS SUMMARY | 2025-01-06 14:26 | XMS_ITS | Clinical Summary ---
Author Organization [facility] Address [address] [place] [address] Care Team Providers Care Pyridine Recovery Operator Name Role Phone Jacey Handley MD Primary Care Provider [phone] Elijah Palumbo MD Unavailable [phone] Truman Dillon MD Unavailable [phone] Davin Madsen MD Unavailable [phone] Allergies Active Allergy Reactions Criticality Noted [...] (KENALOG) 0.1 % cream 1 Active zoledronic wjti-lbbnxubE-o ater (RECLAST) 5 mg/100 mL piggyback 2 [...] (07/16/2019): Added automatically from request for surgery [id number] 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 Stiffness of shoulder joint 11/29/2011 Arthralgia of shoulder 11/24/2011 Surgical History Surgery Date Site/Laterality Comments HYSTERECTOMY [...] Name Comments Coronary artery disease Father Jose nary artery disease; Heart attack Father Coronary artery disease Mother Jose nary artery disease; Cause of : Coronary artery [...] on file Legal Sex Female 1:15 AM SOLAR PANEL TECHNICIAN Gender Identity Female 10/30/2020 9:29 PM SOLAR PANEL TECHNICIAN Sexual Orientation Straight 10/30/2020 9: 29 PM SOLAR PANEL TECHNICIAN Obstetrics History Last Filed Vital Signs Vital Sign Reading Time Taken Comments Blood Pressure 147/74 07/23/2024 9:13 AM CDT Pulse 76 07/23/2024 9:13 AM CDT Temperature 36.3 C (97.3 F) 07/23/2024 9:13 AM CDT Respiratory Rate 14 05/12/2023 1:30 PM CDT [...] 07/21/2032 07/21/2022, 11/09/2015, 05/06/2003, Additional history exists Hepatitis B Screening Completed 09/23/2002 , 04/23/2002, 03/21/2002 Pneumococcal vaccine 65+ Completed 019, 11/29/2016, 11/19/2004 Zoster Vaccine Completed 10/26/2020, 01/2020, 10/16/2020, Additional history exists Medical Devices Implanted Type Area Tank Tender Device Identifier Shelf Expiration Date Model / Serial / Lot Shoulder Replacement Right: Shoulder Procedures Procedure Name Priority Date/Time Associated Diagnosis Comments DEXA TBS AXIAL SKELETON BONE DENSITY 1 OR MORE SITES Schedule Routine, Read Routine (OP Routine) 01/01/2024 12:40 PM SOLAR PANEL TECHNICIAN Osteoporosis, unspecified osteoporosis type, unspecified pathological fracture presence from Last 3 Months or Most Recently Relevant to Health Maintenance Results * Dexa TBS Axial Skeleton Bone Density 1 or more sites (01/01/2024 12:40 PM SOLAR PANEL TECHNICIAN) Anatomical Region Laterality Modality Wrist, Body N/A Radiographic Daksha ging Narrative 01/03/2024 11:35 AM SOLAR PANEL TECHNICIAN Patient Name: Rey Blancas Date of : 1940 Date of scan: 01/01/2024 Bone mineral density was performed on a HoloShopcliq Discovery Densitometer. Based on machine cross-calibration and precision studies [...] Trabecular Bone Score is 1.268 which suggests partially degraded bone microarchitecture compared to the general population. Final decisions regarding diagnostic or therapeutic recommendations should include BMD, TBS, additional clinical risk factors as well the clinical context of the patient. Please see attached TBS results for further [...] mineral density scan were prepared by Gisselle Nichols) BRYANT who is accredited by the International Society of Clinical Densitometry. The overall patient assessment and scan interpretation were performed by Ayo Julien M.D. who is certified by the International Society of Clinical Densitometry. 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/MEDICAL * Full Code (Latest Code Status on File) Date Activated Date Inactivated Comments 07/19/2019 10:55 AM 07/19/2019 6:45 PM Care Teams Pyridine Recovery Operator Relationship Specialty Start Date End Date Jacey Handley MD [address] [facility] [address] PCP - General Internal Medicine 12/08/22 Elijah Palumbo MD [address] [place] [address] Referring Physician Gastroenterology 07/11/24 Truman Dillon MD [phone] [place] [address] Surgeon Colon and Rectal Surgery 07/23/24 Davin Madsen MD [address] [facility] [address] [place] [address] Manager Icu Gastroenterology 07/23/24
--- OUTSIDE RECORDS SUMMARY | 2025-01-06 14:26 | XMS_ITS | Data Portability ---
Author Organization [facility] Address [address] [place] [address] Care Team Providers Care Radial Drill Operator For Plastic Name Role Phone KENNETH BOWLING OTHER SELINA LOWERY Medical Oncologist [phone] LUIS OTERO Director Dance RENETTA HAMEED Ruffling Hemmer Automatic MARTY MCGARRY Bumper Machine Operator Assessment Encounter Date Assessment Date Assessment LastModified by Organization Details LastModified Time 01/20/2022 01/20/2022 planning to transition to new PCP doctor after February 18 Not available 01/20/2022 16:48:38 Plan of Treatment Reminders Order Date Submit Date Provider Last Modified By Organization Details Last Modified Time Details Appointments None recorded. Lab BMP, serum or plasma 2021 [facility], [place], [address], 14:37:01 vitamin B12 + folate, serum or blood 2021 [facility], [place], [address], 10:37:47 Referral None recorded. Procedures None recorded. Surgeries None recorded. Imaging None recorded. Medication Orders sertraline 50 mg tablet 2021 [facility] [address] [place], [address], 13:46:13 carvedilol 6.25 mg tablet 2021 022 [facility] [address] [place], [address], 13:46:16 losartan 50 mg tablet [address] [facility] [address] [place], [address], 14:03:59 levothyroxi ne 75 mcg tablet 2020 021 [facility] [address] [place], [address], 13:23:45 Patient TargetsNo targets recorded. Patient Instructions Encounter Date Encounter Id Patient Instructions Last Modified By Organization Details Last Modified Time 05/20/2021 [id number] follow needed in January 2022 Not available 05/20/2021 13:24:06 01/20/2022 [id number] she is still planning to change to PCP close to where she currenly lives Not available 01/20/2022 22:50:10 Reason for Referral None Reported. Results Created Date Observation Date Name Description Value Unit Range Abnormal Flag Note LastModifiedBy Organization Detail LastModifiedTime 04/27/2004/28/2021 BMP, serum or plasm a glucose 122 mg/dL 65-99 above high normal Not Available [facility] ([facility]) [address] [place], [address], 04/28/2021 06:13:11 04/27/2004/28/2021 BMP, serum or plasm a BUN 8 mg/dL 8-27 Not Available [facility] ([facility]) [address] [place], [address], 04/28/2021 06:13:11 04/27/20 21 04/28/2021 BMP, serum or plasm a creatinine 0.88 mg/dL 0.57-1 .00 Not Available [facility] ([facility]) [address] [place], [address], 04/28/2021 06:13:11 04/27/20 21 04/28/2021 BMP, serum or plasm a eGFR if nonafricn AM 62 mL/mi n/1.7 3 >59 Not Available [facility] ([facility]) [address] [place], [address], 04/28/2021 06:13:11 04/27/20 21 04/28/2021 BMP, serum [...] SN Task force . Not Available [facility] ([facility]) [address] [place], [address], 04/28/2021 06:13:11 04/27/2004/28/2021 BMP, serum or plasm a BUN/creatini ne ratio 9 12-28 below low normal Not Available [facility] ([facility]) [address] [facility] [place], [address], 04/28/2021 06:13:11 04/27/2004/28/2021 BMP, serum or plasm a sodium 130 mmol/ L 134-14 4 below low normal Not Available [facility] ([facility]) [address] [facility] [place], [address], 04/28/2021 06:13:11 04/27/2004/28/2021 BMP, serum or plasm a potassium 4.5 mmol/ L 3.5-5. 2 Not Available [facility] ([facility]) [address] [facility] [place], [address], 04/28/2021 06:13:11 04/27/20 21 04/28/2021 BMP, serum or plasm a chloride 94 mmol/ L 96-106 below low normal Not Available [facility] ([facility]) [address] [facility], [place], [address], 04/28/2021 06:13:11 04/27/20 21 04/28/2021 BMP, serum or plasm a carbon dioxide, total 24 mmol/ L 20-29 Not Available [facility] ([facility]) [address] [facility], [place], [address], 04/28/2021 06:13:11 04/27/2004/28/2021 BMP, serum or plasm a calcium 9.6 mg/dL 8.7-10 .3 Not Available [facility] ([facility]) [address] [facility], [place], [address], 04/28/2021 06:13:11 04/28/20 21 04/20/2021 CT, brain , w/o contr ast No observ ation record ed. Not Available 2020 16:44:39 06/24/20 21 06/24/2021 CT, neck, soft tissu e, w/ contr ast No observ ation record ed. [email or web address] [facility] [address], [place], [address], 06/25/2021 15:48:59 07/05/20 21 mg diag W samreen bilat digi [facility] AL [address] [facility] [place] [address] This is a summar y report . The comple te report is availa ble in the patien t's medica l record . If you cannot access the medica l record , please contac t the sendin g organi zasean for a detail ed fax or copy. EXAMIN ATION: Digita l bilate ral diagno stic mammog asad with 3-D tomogr aphy ACCESS ION: [id number] EXAM DATE/T NNEKA: 9:56 AM REASON FOR EXAM: F/U Right breast cancer COMPAR ZHANE: 020, 019, 017, 2013 TECHNI QUE: Digita l diagno stic mammog jerica of both breast s was perfor med in additi on to 3-D Tomosy nthesi s techni que. This study was read with the assist ance of a Foodini er-aid ed detect ion system . TISSUE [...] reted By: Anthony Murphy MD, 10:24 AM [facility] [address] [place], [address], 07/05/2021 14:09:53 01/04/20 22 mg diag W samreen RT digi [facility] [address] [facility] [place] [address] This is a summar y report . The comple te report is availa ble in the patien t's medica l record . If you cannot access the medica l record , please contac t the debra harrison for a detail ed fax or copy. Examin ation: Digita l right diagno stic mammog asad with 3-D tomosy nthesi s Access ion: [id number] Exam Date/T nneka: 022 12:31 PM Reason For Exam: Abnorm al [...] read with the assist ance of a Foodini er-aid ed detect ion system . Tissue [...] stic follow -up is desire d by debra guerrero nVeronica Ordere d By: BRANDAN SUÁREZ Electr onical ly Signed By: Richmond henning MD on 022 12:57 PM Interp reted By: Richmond henning MD, 022 12:55 PM [facility] [address], [place], [address], 01/06/2022 17:43:29 01/14/20 22 01/14/2022 XR, chest , 2 view No observ ation record ed. [address], [place], [address], 01/14/2022 14:58:43 Result Notes None recorded. 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 620604763 Active 2018 Not Available [facility] 0 04:34:47 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 bilatera lly Delia Harry MD Attn: Accounting ,[address] [place], [address] , [place] [facility] 09:44:57 Acute stress disorder 57673148 Active 2020 Delia Harry MD Attn: Accounting ,[address] [place], [address] , [place] 19:16:52 Hyponatr emia 51688384 Active 2021 Delia Harry MD Attn: Accounting ,[address] [place], [address] , [facility] 2 13:47:26 Hypothyr oidism 99318508 Active Not Available [facility] 0 04:34:48 Osteopor osis 30473371 Active Not Available [facility] 0 04:34:47 Headache 74670790 Active Not Available [facility] 0 04:34:47 Abdomina l pain 86810568 Active Not Available [facility] 0 04:34:48 Constipa tion 92232877 Active Not Available [facility] 0 04:34:48 Fatigue 37279788 Active Not Available [facility] 0 04:34:47 Epigastr ic pain 42469517 Active Not Available [facility] 0 04:34:48 Divertic ulosis of colon without divertic ulitis 063470891 Active Not Available [facility] 0 04:34:47 Cerebrov ascular accident 197616398 Active 2016 Not Available [facility] 0 04:34:48 Hyperlip idemia 02731663 Active 2016 Not Available [facility] 0 04:34:48 Arthriti s 9177472 Active 2016 Bilatera l hands Not Available [facility] 0 04:34:47 Problem Notes None recorded. Procedures Surgical History Date Name Laterality Status Provider Name and Address Organization Details Recorded Time 09/20/20 19 Excision addl breast lesion completed Delia Harry MD Attn: Accounting,[address] [facility], [place], [address], [facility] 09/20/2019 16:42:21 08/09/20 19 biopsy of breast completed Delia Harry MD Attn: Accounting,[address] [facility], [place], [address], [facility] 08/12/2019 14:23:58 10/17/20 18 prosthetic total arthroplasty of right shoulder completed Delia Harry MD Attn: Accounting,[address] [facility], [place], [address], [facility] 10/18/2018 08:26:39 11/29/19 17 AIMS completed Felisa Thompson MA MD - [facility] 11/29/2016 15:08:32 11/29/19 17 SLUMS EXAM completed Felisa Thompson MA MD - [facility] 11/29/2016 15:08:32 Hysterectomy completed Delia Espinal CHAR FILTER OPERATOR- Attn: Accounting,[address], [place], [address], [facility] 07/23/2015 16:25:02 Imaging Results Imaging Date Name Status LastModified by Organiz ation Details LastModified Time 04/20/2021 CT, brain, w/o contrast completed [facility] Information not available 04/28/2021 16:44:39 06/24/2021 CT, neck, soft tissue, w/ contrast completed [facility] [address], [place], [address], 06/25/2021 15:48:59 07/05/2021 mg diag W samreen bilat digi completed [address], [place], [address], 07/05/2021 14:09:53 01/04/2022 mg diag W samreen RT digi completed LEIDA [address], [place], [address], 01/06/2022 17:43:29 01/14/2022 XR, chest, 2 view completed [address], [place], [address], 01/14/2022 14:58:43 Procedure Notes None recorded. Medical [...] Shingrix (PF) 50 mcg/0.5 mL intramusc ular stacey pendleton, kit 11/09 completed Not Available Not Available Not Available Vitals Date Recorded Body height Body mass index (BMI) Body weight Oxygen saturation Oxygen saturation in Arterial blood by Pulse oximetry Heart rate Body temperature Systolic blood pressure Diastolic blood pressure Provider Name and Address Organization Details Last Updated DateTime 1 165.1 cm 18.3 kg/m2 96105.5 6 g 99 % 99 % 69 /min 97.2 [degF] 138 mm[Hg] 62 mm[Hg] Tulio Bazan MA [facility] 10:50:05 Date Recorded Systolic blood pressure Diastolic blood pressure Systolic blood pressure Diastolic blood pressure Provider Name and Address Organization Details Last Updated DateTime 09/21/2021 138 mm[Hg] 60 mm[Hg] 124 mm[Hg] 78 mm[Hg] Delia boyd MD Attn: Accounting ,[address] [place], [address] , [facility] 11:30:23 Date Recorded Body height Body mass index (BMI) Body weight Oxygen saturation Oxygen saturation in Arterial blood by Pulse oximetry Body temperature Heart rate Systolic blood pressure Diastolic blood pressure Provider Name and Address Organization Details Last Updated DateTime 1 165.1 cm 18.5 kg/m2 08418.8 5 g 99 % 99 % 97 [degF] 68 /min 140 mm[Hg] 70 mm[Hg] Jono Gunn MA [facility] 1 11:02:08 Date Recorded Systolic blood pressure Diastolic blood pressure Provider Name and Address Organization Details Last Updated DateTime 10/07/2021 132 mm[Hg] 70 mm[Hg] Delia Harry MD Attn: Accounting,[address] [place], [address], [facility] 10/07/2021 11:19:00 Date Recorded Body height Body mass index (BMI) Body weight Body temperature Oxygen saturation Oxygen saturation in Arterial blood by Pulse oximetry Heart rate Systolic blood pressure Diastolic blood pressure Provider Name and Address Organization Details Last Updated DateTime 2 165.1 cm 18.7 kg/m2 52542.1 g 97.8 [degF] 99 % 99 % 68 /min 122 mm[Hg] 72 mm[Hg] Gisselle Kenyon MA [facility] 2 15:51:39 Date Recorded Systolic blood pressure Diastolic blood pressure Provider Name and Address Organization Details Last Updated DateTime 01/20/2022 122 mm[Hg] 70 mm[Hg] Delia Harry MD Attn: Accounting,[address] [facility], [place], [address], [place] - [facility] 01/20/2022 16:41:10 Date Recorded Body height Provider Name an d Address Organization Details Last Updated DateTime 02/15/2022 165.1 cm Jono Gunn MA [facility] 02/16/20 22 11:35:56 Social History Question Answer Notes LastModified by Organizat ion Details LastModified Time Tobacco Smoking Status Never Smoker Felisa Thompson MA null, [facility] 10/27/2014 14:15:07 Do You Have An Advance [...] completed Delia Harry MD Attn: Accounting,[address] [place], [address], [facility] 01/20/2022 16:49:09 Hep A, live attenuated 8 completed Delia Harry MD Attn: Accounting,[address] [place], [address], [facility] 01/20/2022 16:49:09 Hep B, adult 2 completed Delia Harry MD Attn: Accounting,[address] [facility], [place], [place], [address] [place] [address], [place] [facility] 01/20/2022 16:49:09 Hep B, adult 2 completed Delia Harry MD Attn: Accounting,[address] [facility], [place], [place], [address] [place] [address], [place] [facility] 01/20/2022 16:49:09 Hep B, adult 2 completed Delia Harry MD Attn: Accounting,[address] [facility], [place], [place], [address] [place] [address], [place] [facility] 01/20/2022 16:49:09 Influenza, high-dose, quadrivalent, PF 0 completed Delia Harry MD Attn: Accounting,[address] [facility], [place], [place], [address] [place] [address], [place] [facility] 01/20/2022 16:49:09 zoster recombinant 0 completed Delia Harry MD Attn: Accounting,[address] [facility], [place], [place], [address] [place] [address], [place] [facility] 01/20/2022 16:49:09 zoster recombinant 0 completed Delia Harry MD Attn: Accounting,[address] [facility], [place], [place], [address] [place] [address], [place] [facility] 01/20/2022 16:49:09 COVID-19, mRNA, LNP-S, PF, 30 mcg/0.3 mL dose 1 completed Delia Harry MD Attn: Accounting,[address] [facility], [place], [place], [address] [place] [address], [place] [facility] 01/20/2022 16:49:09 COVID-19, mRNA, LNP-S, PF, 30 mcg/0.3 mL dose 1 completed Delia Haryr MD Attn: Accounting,[address] [facility], [place], [place], [address] [place] [address], [place] [facility] 01/20/2022 16:49:09 COVID-19, mRNA, LNP-S, PF, 30 mcg/0.3 mL dose 1 completed Delia Harry MD Attn: Accounting,[address] [facility], [place], [place], [address] [place] [address], [facility] 01/20/2022 16:49:09 Influenza, split virus, quadrivalent, preservative 1 completed Delia Harry MD Attn: Accounting,[address] [facility], [place], [place], [address] [place] [address], [facility] 01/20/2022 16:49:09 Pneumococcal conjugate PCV 13 7 completed Not Available [facility] 12/07/2019 02:33:03 Tdap 3 completed Delia Harry MD Attn: Accounting,[address] [facility], [place], [place], [address] [place] [address], [facility] 01/20/2022 16:49:09 pneumococcal polysaccharide PPV23 9 completed Not Available [facility] 12/07/2019 02:38:42 Tdap 5 completed Not Available [facility] 12/07/2019 02:43:45 typhoid, parenteral 8 completed Delia Harry MD Attn: Accounting,[address] [facility], [place], [place], [address] [place] [address], [facility] 01/20/2022 16:49:09 Past Encounters Encounter ID Performer Location Encounter Start Date Encounter Closed Date Diagnosis/Indication Diagnosis SNOMED-CT Code Diagnosis ICD10 Code Diagnosis Note [id number] Virgen Tovar [facility] [address] [place] [address] 10/27/2014 14:00:52 10/27/2014 15:38:32 Headache 64035297 shi's poss r/t sinus--lauren l try to treat as such MMSE normal--di scussed concerns. Watch for increased signs. concern for excess gas--try probiotics or phazyme [id number] Virgen Serna [facility] [address] [place] [address] 07/23/2015 14:22:12 07/23/2015 16:35:05 Abdominal pain 25413063 some of sx seem to be reflux--wi ll treat w/ otc Nexium--sa mples given for 1 wk watch what she eats Constipation 50341308 st art Psyllium daily plus Probiotics cont colase--se e if correcting constipati on makes he feel better consider CT of Abd/pelvis if not better in 2 wks Fatigue 87870164 lab soon--chp and Vit D [id number] Delia Teddy [facility] [address] [place] [address] 11/09/2015 15:12:33 11/09/2015 16:24:15 Adult health examination 206712438 Z00.00 reviewed healthy lifestyle cont reg activity/ good diet Epigastric pain 02098622 R10.13 will check Hpylori back on PPI-- diet as solange [id number] [address] [address] 08/02/2016 15:15:05 08/15/2016 13:13:37 Fatigue 11044025 R53.83 will check lab. reviewed diet. cont Vit B compex. reviewed meds from GI--need notes. [id number] [facility] Teddy [address] [address] 11/29/2016 14:53:52 12/20/2016 16:12:25 Adult health examination 925975842 Z00.00 reviewed healthy lifestyle. discussed issues of memory. discussed balance/di zziness. Balance exercise handout. pt will schedule her awn mamm/bone dens Osteoporosis 58144733 M8 1.0 get bone density Shoulder joint pain 2679 81228 M25.519 reviewed notes from ORTHO--con sidering surg--disc ussed. cont ROM exercises Neuropathy 820461061 G62 .9 try B complex. good supporting shoes Ganglion cyst 97522375 M 67.40 believe lumps in hands are ganglion cysts--jeronimo cts not to do anything right now--will watch [id number] [facility] Teddy [facility] [address] [address] 12/21/2016 09:33:58 01/20/2017 10:32:26 Osteoporosis 03445191 M81.0 reviewed bone density--r eally needs to be treated. info given on Reclast and Prolia--wi ll research them and get back to us. cont Ca++ w/ D Mammography abnormal 168 238835 R92.8 reviewed Mamm--need s Dx on L History of cerebrovascular accident without residual deficits 621455720 Z86.73 reviewed hosp records. she will cont w/ daily asa and statin as solange. s/w reluctant to take but will try to take 3 x wk at least. questions if some of sx were from dehydratio n--make sure she keeps hydrated. has May appt w/ spec. at [place]--wi keep [id number] Marco Granados MD [address] [address] 04/11/2017 09:56:57 04/19/2017 11:06:16 Dizziness 285979142 R42 Check labs. Boost samples. Hand pain 15955536 M79.6 42 Check labs. [id number] Marco Granados MD [address] [address] 04/25/2017 09:53:39 05/01/2017 12:14:10 Hypothyroidism 87426813 E03.9 Hyperlipidemia 67995688 E78.5 Cerebrovas cular accident 884674127 I63.9 Dizziness 958814854 R42 Better with meclizine prn. Osteoarthritis 473624092 M19.90 Taking celebrex once daily, as needed, and helping a lot. Vitamin D deficiency 347 17560 E55.9 Low normal, continue vit d supplement ation, take with beneficial fats like coconut oil to help improve absorption . [id number] Marco Granados MD [address] [address] 08/25/2017 14:03:08 09/04/2017 16:22:50 Cerebrovascular accident 418259660 I63.9 One year in Nov 2017. Hypothyroidism 24027567 E03.9 Hyperlipidemia 01367009 E78.5 Osteoporosis 75343523 M8 1.0 Per DEXA scan done in 12/06, then she had one again in 07/06, shows improvemen t in T scores after being on OTC ca and vit d, continue. Fatigue 39805885 R53.83 Could be manifestat ion of depression , labs all rad normal. Unlikely to be sleep apnea. Will try low dose sertraline to see whether that helps. Lives by self, she never , never had kids. Shoulder pain 62845600 M 25.511 Chronic low back pain 27 1415500 M54.5 [id number] Marco Granados MD [facility] [address] [place] [address] 10/17/2017 10:19:55 10/25/2017 16:04:35 Cerebrovascular accident 708126775 I63.9 One year in Nov 2017. Arthritis 3832349 M19.90 Hypothyroidism 50585952 E03.9 Hyperlipidemia 43875946 E78.5 Osteoporosis 71315865 M8 1.0 Per DEXA scan done in 12/06, then she had one again in 07/06, shows improvemen t in T scores after being on OTC ca and vit d, continue. Depressive disorder 3548 9007 F32.89 Continue sertraline . Synovial c yst of popliteal space 50627306 M71.22 Will try oral steroids, if no help, may need orthopedic referral later. Aphthous u lcer of mouth 385538361 K12.0 [id number] Marco Granados MD [facility] [address] [place] [address] 12/22/2017 15:38:41 12/26/2017 14:40:05 Complaining of - postnasal drip 121054795 R09.82 Eczema 85834838 L30.9 [id number] Delia Harry MD [facility] [address] [place] [address] 05/14/2018 12:03:02 05/15/2018 09:07:40 Hypothyroidism 10295147 E03.9 to have lab check in July and follow up in the beginning of August Adult [facility] examination 855365235 Z00.00 healthy and appropriat e-- risk for CVD with prior stroke History of cerebrovascular accident 487299199 Z86.73 I advised she take ASA 81 mg daily Hyperlipidemia 71990159 E78.5 I advised to decrease the atorvastat in ot M-W- since last lipids were exceptiona l and she is considerin g stopping med since she is opposed to taking meds in principal Chronic hoarseness 92910 30216 105 R49.0 I advised she try the nasal steroid daily for at least a month to treat the hoarseness -- probably related to PND. I did not see PND on exam -- she had seen ENT in the past [id number] Sana saunders [facility] [address] [place] [address] 08/17/2018 09:50:36 08/17/2018 12:50:26 Hypothyroidism 25273863 E03.9 to have lab check in July and follow up in the beginning of August Hyperlipidemia 36206321 E78.5 I advised to decrease the atorvastat in ot -- since last lipids were exceptiona l and she is considerin g stopping med since she is opposed to taking meds in principal Fatigue 33004938 R53.83 [id number] Delia Harry MD [facility] [address] [place] [address] 08/21/2018 10:14:53 08/22/2018 09:44:10 Hypothyroidism 91196805 E03.9 lab reviewed and copy to patient-- stable Hyperlipidemia 05355380 E78.5 I advised to continue the atorvastat in on Degenerati ve joint disease involving multiple joints 606795237 M15.9 consider surgical correction of the right shoulder-- letter for patient to continue with exercise program-- like [place] Senile osteopenia 640891 06 M85.80 wants a letter for exercise program coverage since not covered with her health insurance Total bili lee above reference range [id number] 86097 R17 this is stable for patient-- no further evaluation needed-- 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 You jeramie contin wit the PROBIOTIC and STOOL SOFTNER at this time. Likely IBS. You will call in a month for prescripti on trial of BENTYL if not better wtih dairy eliminatio n Degenerati ve joint disease involving multiple joints 915437601 M15.9 the arthritis lauren likely trigger intermitte nt pain-- stay active and note that inactivity does lead to greater pain and stiffness. Hypothyroidism 41395797 E03.9 lab reviewed and copy to patient-- stable Long-term drug therapy 616774853 Z79.102 [id number] Delia Harry MD [facility] [address] [place] [address] 08/05/2019 12:15:58 08/05/2019 14:53:26 Mass of right breast [id number] N63.10 I recommend a visit with Dr Whyte and to have [id number] Delia Harry MD [facility] [address] [place] [address] 09/03/2019 09:19:54 09/03/2019 11:31:36 Degenerative joint disease involving multiple joints 682378090 M15.9 the arthritis lauren likely trigger intermitte nt pain-- stay active and note that inactivity does lead to greater pain and stiffness. 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 She does not want to start any new medication s and would like to wait til after the surgery to think about therapy. 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 I would suggest RECLAST generic-- if affordable from [facility]- let me know Influenza vaccination declined 777044013 Z28.21 discussed and refused [id number] Delia Harry MD [facility] [address] [place] [address] 03/11/2020 11:54:30 03/11/2020 14:37:16 Hypothyroidism 85787314 E03.9 lab reviewed form 04/2019 -- stable-- will need retesting then-- unless test done per memory evaluation protocol Poor short -term memory 688455826 R41.3 memory referral per patient request Constipation 39522297 K5 9.00 management discussed and diet likely trigger-- since better through and worse since -- mainstay of treatment- - MIRALAX-- every day-- dose increase to TID until stools are soft / renewal of daily BMs [id number] Delia Harry MD [facility] [address] [place] [address] 03/26/2020 10:44:40 03/27/2020 12:02:04 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 OK to use benedryl pill form-- not cream--at bedtime for itching [id number] Delia Harry MD [facility] [address] [place] [address] 08/17/2020 14:01:37 08/17/2020 18:21:15 Paresthesia of lower extremity 709054103 R20.2 this may be a side effect related to the anastrazol e but the benefit outweighs this as a risk-- I would recommend continuing treatment Degenerati ve joint disease involving multiple joints 257613771 M15.9 Long-term drug therapy 652144646 Z79.899 if the lab testing is negative-- will need to X RAY the areas of pain Hypothyroidism 91398797 E03.9 lab reviewed -- will need retesting tomorrow History of malignant neoplasm of breast 727683185 Z85.3 [id number] [place] [address] [place] [address] 11/09/2020 10:51:32 11/09/2020 15:53:09 Paresthesia of lower extremity 617208336 R20.2 again , this may be a side effect related to the anastrazol e but the benefit outweighs this as a risk-- I would recommend continuing treatmentb 12 and folate normal Dupuytren' s disease of palm 646049243 M72.0 seeing hand surgeon [id number] Delia Harry MD [place] [address] [place] [address] 01/19/2021 09:02:09 01/20/2021 12:00:02 Acute low back pain 798020880 M54.5 I advise to get the XRAYs completed and will make plans pending outcome Pain in ri ght hip joint [id number] 43498 M25.551 xray ordered and patient to pospone any nerve testing until after the xrays-- the feet numbness persists and the testing was not completed in Nov as scheduled originally due to a lost order at [facility]-- if retesting advised-- she wants to have the test done elsewhere [id number] Delia Harry MD [place] [address] [facility] [address] [facility] [address] 04/09/2021 13:29:49 04/12/2021 12:31:11 Acute stress disorder 03265368 F43.0 I offered counseling or senior living and declined-- she agrees to start low dose sertraline and follow up in one month for reassessme nt to see if med change or dose adjustment will be needed [id number] Delia Harry MD [facility] [address] [facility] [address] [place] [address] 04/27/2021 14:21:44 04/28/2021 14:58:42 Long-term drug therapy 412091569 Z79.899 if the lab testing ordered since new start AKIL inhibitor. Will get records from [facility] ER visits Acute stress disorder 67 914952 F43.0 I offered counseling or senior living and declined-- she agrees to increase the dose sertraline since still worrying and not herself and troubled with sleeping. She is to follow up in one month for reassessme nt to see if med change or dose adjustment will be needed Benign ess ential hypertension 4796251 I10 no dose change in LISINOPRIL and will re-evaluat e in one week-- will get the reports from the ER [id number] Delia Harry MD [facility] [address] [facility] [address] [facility] [address] 05/20/2021 08:56:53 05/20/2021 16:13:55 Acute stress disorder 66323093 F43.0 she is feeling better and she agrees to taper the dose sertraline -- I advised 25 mg daily for another week ( started taper on 05/12 per patient case)-- and then take 25 mg every other day for 14 days-- then stop. If anxiety increases- - she will contact office to restart sertraline 25 mg daily Hypothyroidism 04089398 E03.9 lab reviewed -- will need retesting tomorrow [id number] Delia Harry MD [facility] [address] [facility] [address] [facility] [address] 09/21/2021 10:30:29 09/21/2021 15:49:44 Benign essential hypertension 4901805 I10 dose change in LOSARTAN to 50 mg and will re-evaluat e in two weeks Generalize d anxiety disorder 46756098 F41.1 I advised her to cont taking sertraline for at least 6 weeks to evaluate it's effect on anxiety-- do not stop taking this med-- and take it daily Osteoporosis 34591789 M8 1.0 cox north plans to stop taking RECLASt-- will need to re-evaluat e with DEXA to reassess bone density ( last check was Oct 2019) [id number] Delia Harry MD [facility] [address] [facility] [address] [facility] [address] 10/07/2021 10:47:59 10/08/2021 10:45:26 Acute stress disorder 09814513 F43.0 she is feeling better and she agrees to taper the dose sertraline - now to start sertraline 25 mg daily. Follow up in 3 mo with plan to transition off med if continues to improve with adjustment disorder Benign ess ential hypertension 6529568 I10 advised no dose change in LOSARTAN 50 mg and will re-evaluat e with plan to change in 3 months back to 25 mg daily if BP well controlled -- <150/>90-- goal 130/80. No interest in lowering BP less than 100 systolic Adjustment disorder with anxious mood 47637179 F43.22 she is feeling better and she agrees to taper the dose sertraline - now to start sertraline 25 mg daily. Follow up in 3 mo with plan to transition off med if continues to improve with adjustment disorder [id number] Delia Harry MD [facility] [address] [facility] [address] 01/20/2022 15:38:29 01/21/2022 14:29:02 Essential hypertension 79692777 I10 no change in the dose of the LOSARTAN 100 mg dialy due to max benefit after 14 days of this current dose-- will reassess after co nt to take and record home BP readingsho me monitor was tested today and accuracy was very goodI advised ER follow up with cardiologi st at [facility] and I advised Dr Alta Santamaria-- she has name and contact informatio n and prefers to set up appointmen t with cardiologi st herself Hyponatremia 53630238 E8 7.1 follow up from ER sodium of 131 needed Unsteady when walking 22 546826 R26.89 cause not clear---ab le to walk outdoors with her sister for exercise [id number] Delia Harry MD [facility] [address] [facility] [place] [address] 02/15/2022 09:55:49 02/15/2022 17:43:50 Essential hypertension 10002421 I10 cont to take and record home BP readingsco nt with the carvedilol 6.25 mg BID ( instead of cutting dose in 11/21)cont home monitor was tested today and accuracy was very goodget up slowlydrin k plenty of fluidssee cardiologi st as arranged in a week Acute stress disorder 67 171298 F43.0 she is feeling better Follow up in 3 mo with plan to transition off med if continues to improve with adjustment disorder Hyponatremia 16678746 E8 7.1 improving and electrolyt es reviewed [...] 2 [employer] (MEDICARE SUPPLEMENT) PLAN N Vanda Blancas [id number] Vanda Blancas 05/20/2021 2 [place] Vanda Blancas [id number] Vanda Blancas 09/21/2021 2 [employer] (MEDICARE SUPPLEMENT) PLAN N Vanda Blancas [id number] Vanda Blancas 09/21/2021 2 [place] Vanda Blancas [id number] Vandacody Blancas 10/07/2021 2 [employer] (MEDICARE SUPPLEMENT) PLAN N Vanda Blancas [id number] Vanda Blancas 10/07/2021 2 [place] Vanda Blancas [id number] Vandacody Blancas 01/20/2022 2 [place] Vanda Blancas [id number] Vanda Blancas 01/20/2022 1 [facility] (MEDICARE REPLACEMENT/AD VANTAGE - HMO) [id number] Vanda Annie Echevarriaada [id number] Vanda Swathiada 02/15/2022 1 [facility] (MEDICARE REPLACEMENT/AD VANTAGE - HMO) [id number] Vanda Annie Blancas [id number] Vandacody Blancas Notes Date Note Type Note Provider Name and Address Organization Details Recorded Time text/html Anxiety/DepressionReporte d bypatient.Quality:symptom s improved Severity:denies [...] visit. Delia Harry MD Attn: Accounting[address] [place], [address], [facility] 05/20/2021 13:24:39 1 text/html Hypertension F/UReported bypatient.Associated [...] f/u Delia Harry MD Attn: Accounting[address] [facility], [place], [address], [facility] 09/21/2021 13:20:02 1 text/html Hypertension F/UReported bypatient.Associated [...] worse Delia Harry MD Attn: Accounting[address] [place], [address], [facility] 10/07/2021 19:07:54 2 text/html Hypertension F/UReported bypatient.Associated [...] it done Delia Harry MD Attn: Accounting[address] [place], [address], [facility] 01/20/2022 22:51:36 2 text/html Hypertension F/UReported bypatient.Associated Symptoms:no shortness of breath; no edema;dizziness;lighthead edness;chest pain(tightness); pt states that sometimes when standing up she has to move around a little to get stabilized, she will see plunger shovel operator 02/22/22 Lifestyle:regular exercise; exercises 7 times/week; exercises for 15-20 minutes/day Medications:taking medications as directed;side effects from medications(numbness hand new med); checks blood pressure at home, range:Notes:no answer at 12:15 pmcalled back for appointmentplans to see Dr. Macias next [id number] /[id number] thinks she is go over test results. Delia Harry MD Attn: Accounting[address] [place], [address], [facility] 02/15/2022 13:47:36 OBGyn Episode No OBEpisode recorded.
--- OUTSIDE RECORDS SUMMARY | 2025-01-06 14:26 | XMS_ITS | Encounter Summary ---
Author Organization [facility] Facility Care Team Providers Care Tobacco Drying Machine Operator Name Role Phone Delia Harry MD Primary Care Provider [phone] Ysabel Winters MD Primary Care Provider [phone] Jacey Handley MD Primary Care Provider [phone] Elijah Palumbo MD Unavailable [phone] Truman Dillon MD Unavailable [phone] Davin Madsen MD Unavailable [phone] Encounter Details Date Type Department Care Team (Latest Contact Info) Description 09/24/2018 Orders Only [facility] CLINCONV ProviderRobert MD [address] [place] [address] Social History Tobacco Use Types Packs/Day Years Used Date Smoking Tobacco: Never Alcohol Use Standard Drinks/Week Comments Yes 0 (1 standard drink = 0.6 oz pur e alcohol) Comments Unknown Sex and Gender Information Value Date Recorded Sex Assigned at Not on file Legal Sex Female 1:15 AM CONCRETE BATCH PLANT OPERATOR Gender Identity Female 10/30/2020 9:29 PM CONCRETE BATCH PLANT OPERATOR Sexual Orientation Straight 10/30/2020 9: 29 PM CONCRETE BATCH PLANT OPERATOR documented as of this encounter Plan of Treatment Not on file documented as of this encounter Procedures Procedure Name Priority Date/Time Associated Diagnosis Comments PROCEDURE - RESULT 09/24/2018 12 :00 AM CONCRETE BATCH PLANT OPERATOR documented in this encounter Results * PROCEDURE - RESULT (09/24/2018 12:00 AM CONCRETE BATCH PLANT OPERATOR) Narrative 09/24/2018 12:00 AM CONCRETE BATCH PLANT OPERATOR Ordered by an unspecified provider. us Historical Provider Final Res ult documented in this encounter Visit Diagnoses Not on filedocumented in this encounter Care Teams Tobacco Drying Machine Operator Relationship Specialty Start Date End Date Delia Harry MD [address] [facility] [address] [place] [address] PCP - General 01/18/19 12/06/20 Ysabel Winters MD [address] [facility] [address] [place] [address] PCP - General 12/07/20 12/07/22 Jacey Handley [place] [address] PCP - General Internal Medicine 12/08/22 Elijah Palumbo MD [address] [place] [address] Referring Physician Gastroenterology 07/11/24 Truman Dillon MD [phone] [place] [address] Surgeon Colon and Rectal Surgery 07/23/24 Davin Madsen MD [address] [facility] [address] [place] [address] Chinchilla Farmer Gastroenterology 07/23/24 documented as of this encounter
--- OUTSIDE RECORDS SUMMARY | 2025-01-06 14:26 | XMS_ITS | Referral Summary ---
Author Organization [facility] Address [address] [place] [address] Care Team Providers Care Dinkey Mechanic Name Role Phone Jacey Handley MD Primary Care Provider [phone] Elijah Palumbo MD Unavailable [phone] Truman Dillon MD Unavailable [phone] Davin Madsen MD Unavailable [phone] Allergies Active Allergy Reactions Criticality Noted [...] (KENALOG) 0.1 % cream 1 Active zoledronic igoj-hvellewT-j ater (RECLAST) 5 mg/100 mL piggyback 2 [...] (07/16/2019): Added automatically from request for surgery [id number] 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 Stiffness of shoulder [...] on file Legal Sex Female 1:15 AM FINISH CLEANER Gender Identity Female 10/30/2020 9:29 PM FINISH CLEANER Sexual Orientation Straight 10/30/2020 9: 29 PM FINISH CLEANER Last Filed Vital Signs Vital Sign Reading [...] on file Medical Devices Implanted Type Area Paste Up Worker Device Identifier Shelf Expiration Date Model / Serial / Lot Shoulder Replacement Right: Shoulder Procedures Procedure Name Priority Date/Time Associated Diagnosis Comments DEXA TBS AXIAL SKELETON BONE DENSITY 1 OR MORE SITES Schedule Routine, Read Routine (OP Routine) 01/01/2024 12:40 PM FINISH CLEANER Osteoporosis, unspecified osteoporosis type, unspecified pathological fracture presence from Last 3 Months or Most Recently Relevant to Health Maintenance Results * Dexa TBS Axial Skeleton Bone Density 1 or more sites (01/01/2024 12:40 PM FINISH CLEANER) Anatomical Region Laterality Modality Wrist, Body N/A Radiographic Daksha ging Narrative 01/03/2024 11:35 AM FINISH CLEANER Patient Name: Rey Blancas Date of : 1940 Date of scan: 01/01/2024 Bone mineral density was performed on a HoloMaxxAthlete Discovery Densitometer. Based on machine cross-calibration and [...] by the International Society of Clinical Densitometry. [id number] Ayo Julien MD IMG DXA PROCEDURES Final Result from Last 3 Months or Most Recently Relevant to Health Maintenance Insurance MEDICARE SOLUTIONS [facility] MEDICARE Address: [facility] [address] [place] [address] MEDICARE SOLUTIONS MEDICARE SOLUTIONS Advance Directives For more information, please contact: [phone] Documents on File Type Date Recorded Patient Beverage Host Expl anation ADVANCE DIRECTIVE 10/02/2018 12:00 AM [facility] [employer] FINANCIAL/MEDICAL * Full Code (Latest Code Status on File) Date Activated Date Inactivated Comments 07/19/2019 10:55 AM 07/19/2019 6:45 PM Care Teams Dinkey Mechanic Relationship Specialty Start Date End Date Jacey Handley MD [address] [facility] [place] [address] PCP - General Internal Medicine 12/08/22 Elijah Palumbo MD [address] [place] [address] Referring Physician Gastroenterology 07/11/24 Truman Dillon MD [phone] [place] [address] Surgeon Colon and Rectal Surgery 07/23/24 Davin Madsen MD [address] [place] [address] Knot Cutter Gastroenterology 07/23/24
--- OUTSIDE RECORDS SUMMARY | 2025-01-06 14:26 | XMS_ITS | Encounter Summary ---
Author Organization [facility] Address [address] [place] [address] Phone Care Team Providers Care Screen Roller Name Role Phone Delia Harry MD Primary Care Provider [phone] Everett Arriaga MD Unavailable [phone] Jacey Handley MD Primary Care Provider [phone] Reason for Visit * Reason Comments Medication Refill Encounter Details Date Type Department Care Team (Late st Contact Info) Description 10/21/2021 Refill [facility] [address] [address] Everett Arriaga MD [address] [place] [address] Medication Refill Social History Tobacco Use [...] Everett Arriaga MD - 10/22/2021 10:42 AM [employer] Ok to fill [employer] * Telephone Encounter - Ruperto Olivarez RN - 10/22/2021 10:27 AM CST Refill request from pharmacy. Refill if appropriate. 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, estrogen receptor positive (HCC) Other osteoporosis, unspecified pathological fracture presence documented in this encounter Additional Health Concerns Assessment Noted Time PHQ-9 Depression Total Score: 1 01/13/20 21 3:49 PM [employer] documented as of this encounter Care Teams Screen Roller Relationship Specialty Start Date End Date Delia Harry MD [address] [address] PCP - General Family Medicine 08/13/19 08/16/22 [place] [address] PCP - General Internal Medicine 08/18/22 Everett Arriaga MD [address] [place] [address] Consulting Physician Oncology 10/20/20 documented as of this encounter
--- OUTSIDE RECORDS SUMMARY | 2025-01-06 14:26 | XMS_ITS | Clinical Summary ---
Author Organization [facility] Address [address], [facility] [address] [place] [address] Phone Care Team Providers Care Chilling Hood Operator Name Role Phone Everett Arriaga MD Unavailable [phone] Jacey Handley MD Primary Care Provider [phone] Allergies Active Allergy Reactions Criticality Noted Date [...] Lnp-s, Pf, 3 0 Mcg/0.3 Ml Dose (Scheduling Employee Scheduling Software) 01/15/2021,12/25/2020 Hepatitis A Vaccine 06/25/2019,03/19/2018 Hepatitis A, [...] 67 08/30/2024 9:39 AM CDT Temperature 36.6 C (97.8 F) 08/30/2024 9:39 AM CDT Respiratory Rate 18 08/30/2024 9:39 AM CDT [...] AM CDT Lab [facility] [address] [address] Lab, [facility] 02/28/2025 11:00 AM CDT Ancillary Procedure [facility] [address] [address] 02/28/2025 11:30 AM CDT Office Visit [facility] [address] [phone] Everett Arriaga MD [address] [place] [address] Health Maintenance Due Date Last [...] Procedure Name Priority Date/Time Associated Diagnosis Comments [facility] BONE DENSITOMETRY AXIAL SKELETON Routine 11/23/2023 9:58 AM JANITOR Encounter for monitoring aromatase inhibitor therapy from Last 3 Months or Most Recently Relevant to Health Maintenance Results * [facility] BONE DENSITOMETRY AXIAL SKELETON (11/23/2023 9:58 AM JANITOR) Anatomical Region Laterality Modality BODY N/A Other Narrative 11/23/2023 11:24 AM JANITOR EXAMINATION: [facility] BONE DENSITOMETRY AXIAL SKELETON INDICATIONS: Encounter for therapeutic drug level monitoring. Monitoring aromatase inhibitor therapy, osteoporosis, family history of osteoporosis, 1 inch height loss, calcium supplement use, Reclast use, thyroid medication use COMPARISON: This examination is compared to prior examination dated December 08, 2021. FINDINGS: Osteoporosis of the lumbar spine measuring 0.837 corresponding to 71 percent of that expected in a young adult with A T-score of -2.9 and a Z-score of -0.6. This has worsened when compared [...] -1.9 and a Z-score of 0.6. This has worsened when compared to prior examination dated December 08, 2021. IMPRESSION Osteoporosis. The bone mineral density of the lumbar spine has worsened when compared to prior examination of December 08, 2021. Electronically signed by: BRODY LARES MD Date of Signature: 11/23/2023 11:24:30 Procedure Note Brody Lares MD - [...] Signature: 11/23/2023 11:24:30 us Emma Martínez APRN, AIRLINE MECHANIC IMG DEXA ORDERABL ES Final Result from Last 3 Months or Most Recently Relevant to Health Maintenance Insurance MEDICARE C [facility] Care Teams Chilling Hood Operator Relationship Specialty Start Date End Date Jacey Handley MD [address] [place] [address] PCP - General Internal Medicine 08/18/22 Everett Arriaga MD [address] [place] [address] Consulting Physician Oncology 10/20/20
--- OUTSIDE RECORDS SUMMARY | 2025-01-06 14:26 | XMS_ITS | Encounter Summary ---
Author Organization [facility] Address [address] [place] [address] Phone Care Team Providers Care Neurophysiologist Name Role Phone Delia Harry MD Primary Care Provider [phone] Ysabel Winters MD Primary Care Provider [phone] Jacey Handley MD Primary Care Provider [phone] Elijah Palumbo MD Unavailable [phone] Truman Dillon MD Unavailable [phone] Davin Madsen MD Unavailable [phone] Encounter Details Date Type Department Care Team (Late st Contact Info) Description 10/24/2019 Orders Only [facility] Gastroenterology [address] [facility] Office Building [address] [place] [id number] Lolis Mcallister MD [address] [place] [address] [address] [place] [address] Social History Tobacco Use Types Packs/Day Years Used Date Smoking Tobacco: Never Smokeless Tobacco: Never Alcohol Use Standard Drinks/Week Comments Yes 2 (1 standard drink = 0.6 oz pur e alcohol) Comments No Sex and Gender Information Value Date Recorded Sex Assigned at Not on file Legal Sex Female 1:15 AM CONCRETE VAULT MAKER Gender Identity Female 10/30/2020 9:29 PM CONCRETE VAULT MAKER Sexual Orientation Straight 10/30/2020 9: 29 PM CONCRETE VAULT MAKER documented as of this encounter Plan of Treatment Not on file documented as of this encounter Visit Diagnoses Not on filedocumented in this encounter Care Teams Neurophysiologist Relationship Specialty Start Date End Date Delia Harry MD [address] [facility] [address] [place] [address] PCP - General 01/18/19 12/06/20 Ysabel Winters MD [address] [facility] [address] [place] [address] PCP - General 12/07/20 12/07/22 Jacey [place] [address] PCP - General Internal Medicine 12/08/22 Elijah Palumbo MD [address] [place] [address] Referring Physician Gastroenterology 07/11/24 Truman Dillon MD [address] [facility] [phone] [place] [address] Surgeon Colon and Rectal Surgery 07/23/24 Davin Madsen MD [address] [facility] [address] [facility] [address] [place] [address] [employer] Gastroenterology 07/23/24 documented as of this encounter
--- OUTSIDE RECORDS SUMMARY | 2025-01-06 14:26 | XMS_ITS | Encounter Summary ---
Author Organization [facility] Address [address] [place] [address] Phone Care Team Providers Care Editor Managing Newspaper Name Role Phone Delia Harry MD Primary Care Provider [phone] Everett Arriaga MD Unavailable [phone] Jacey Handley MD Primary Care Provider [phone] Reason for Visit * Reason Comments Medication Refill Encounter Details Date Type Department Care Team (Late st Contact Info) Description 07/17/2022 Refill [facility] [address] [place] [address] Everett Arriaga MD [address] [place] [address] Medication Refill Social History Tobacco Use [...] * Telephone Encounter - Emma Thacker, KELSEY, RESIDENTIAL FRAMING CARPENTER - 07/18/2022 10:20 AM CDT Okay to refill. * Telephone Encounter - Christiana Sheppard RN - 07/18/2022 8:03 AM CDT Refill request from pharmacy Last filled 10/22/2021 #90 R-2 Please fill if appropriate documented in this encounter Plan of Treatment Upcoming Encounters Date Type Department Care Team (Late st Contact Info) Description 02/28/2025 10:15 AM CDT Lab [facility] [address] [id number] Lab, [facility] 02/28/2025 11:00 AM CDT Ancillary Procedure [facility] [address] [id number] 02/28/2025 11:30 AM CDT Office Visit [facility] [address] [id number] Everett Arriaga MD [address] [place] [phone] documented as of this encounter Visit Diagnoses Diagnosis 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, estrogen receptor positive (HCC) Other osteoporosis, unspecified pathological fracture presence documented in this encounter Additional Health Concerns Assessment Noted Time PHQ-9 Depression Total Score: 1 01/13/20 21 3:49 PM CONSUMER ELECTRONIC RETAIL SPECIALIST documented as of this encounter Care Teams Editor Managing Newspaper Relationship Specialty Start Date End Date Delia Harry MD [address] [address] PCP - General Family Medicine 08/13/19 08/16/22 Jacey Handley MD [address] [place] [address] PCP - General Internal Medicine 08/18/22 Everett Arriaga MD [address] [place] [phone] Consulting Physician Oncology 10/20/20 documented as of this encounter
--- OUTSIDE RECORDS SUMMARY | 2025-01-06 14:26 | XMS_ITS | Encounter Summary ---
Author Organization [facility] Care Team Providers Care Beer Maker Name Role Phone Delia Harry MD Primary Care Provider [phone] Ysabel Winters MD Primary Care Provider [phone] Jacey Handley MD Primary Care Provider [phone] Elijah Palumbo MD Unavailable [phone] Truman Dillon MD Unavailable [phone] Davin Madsen MD Unavailable [phone] Encounter Details Date Type Department Care Team (Latest Contact Info) Description 10/17/2018 Orders Only [facility] ProviderRobert MD [address] [place], [place] [id number] Social History Tobacco Use Types Packs/Day Years Used Date Smoking Tobacco: Never Alcohol Use Standard Drinks/Week Comments Yes 0 (1 standard drink = 0.6 oz pur e alcohol) Comments Unknown Sex and Gender Information Value Date Recorded Sex Assigned at Not on file Legal Sex Female 1:[address] Gender Identity Female 10/30/2020 9:[address] JUDGE Sexual Orientation Straight 10/30/2020 9: [address] JUDGE documented as of this encounter Plan of Treatment Not on file documented as of this encounter Procedures Procedure Name Priority Date/Time Associated Diagnosis Comments PROCEDURE - RESULT 10/17/2018 12 :[address] JUDGE documented in this encounter Results * PROCEDURE - RESULT (10/17/2018 12:[address] JUDGE) Narrative 10/17/2018 12:[address] JUDGE Ordered by an unspecified provider. us Historical Provider Final Res ult documented in this encounter Visit Diagnoses Not on filedocumented in this encounter Care Teams Beer Maker Relationship Specialty Start Date End Date Delia Harry MD [address] [facility] [address] [place] [address] PCP - General 01/18/19 12/06/20 Ysabel Winters MD [address] [facility] [address] [place] [address] PCP - General 12/07/20 12/07/22 [place] [address] PCP - General Internal Medicine 12/08/22 Elijah Palumbo MD [address] [place] [address] Referring Physician Gastroenterology 07/11/24 Truman Dillon MD [address] [facility] [phone] [place] [address] Surgeon Colon and Rectal Surgery 07/23/24 Davin Madsen MD [address] [facility] [address] [place] [address] [employer] Gastroenterology 07/23/24 documented as of this encounter
== END 2025-01-06 11:31 | disposition home or self-care (01) ==
LOC: ANHLAB 11:35
PROVIDERS: PCP Nurse Practitioner Family; Visit Provider Nurse Practitioner Family
DX: R41.3 Other amnesia (principal); I10 Essential (primary) hypertension; I73.9 Peripheral vascular disease, unspecified; E78.5 Hyperlipidemia, unspecified; E03.9 Hypothyroidism, unspecified; E87.1 Hypo-osmolality and hyponatremia; J31.0 Chronic rhinitis; M26.609 Unspecified temporomandibular joint disorder, unspecified side; K21.9 Gastro-esophageal reflux disease without esophagitis; K59.04 Chronic idiopathic constipation; Z86.73 Personal history of transient ischemic attack (TIA), and cerebral infarction without residual deficits; E55.9 Vitamin D deficiency, unspecified; E53.8 Deficiency of other specified B group vitamins
CPT/HCPCS: 36415; 80053; 82306; 82607; 82746; 84443; 85027

== ENCOUNTER 2025-01-23 15:31 | Outpatient (CLI) | payer MEDICARE, SELFPAY ==
[2025-01-23 16:04] LABS: Add Urine Microscopic? YES; Appearance Urine Clear (Clear); Bacteria Urine None Seen /hpf; Bilirubin Urine Negative (Negative); Blood Urine Negative (Negative); Color Urine Yellow (Yellow); Glucose Urine UA Negative (Negative); Ketones Urine Negative (Negative); Leukocyte Esterase Ur 1+ LEU/UL (Negative); Nitrate Urine Negative (Negative); Non Pathogenic Casts 0-2; Protein Urine Negative (Negative); RBC Urine 0-2 /hpf (0-2); Squamous Epithelial Cell Urine None Seen /hpf (Few); Urobilinogen Urine 0.2 mg/dL (<2.0); pH Urine 7.5 (5.0-9.0)
--- OUTSIDE RECORDS SUMMARY | 2025-01-23 16:42 | XMS_ITS | Clinical Summary ---
Author Organization [facility] Address [address], [facility] [address] [place] [address] Phone Care Team Providers Care Steel Cutter Name Role Phone Everett Arriaga MD Unavailable Jacey Handley MD Primary Care Provider [phone] Allergies Active Allergy Reactions Criticality Noted Date [...] Lnp-s, Pf, 3 0 Mcg/0.3 Ml Dose (Profound) 01/15/2021,12/25/2020 Hepatitis A Vaccine 06/25/2019,03/19/2018 Hepatitis A, [...] AM CDT Lab [facility] [address] [address] Lab, [facility] 02/28/2025 11:00 AM CDT Ancillary Procedure [facility] [address] [phone] 02/28/2025 11:30 AM CDT Office Visit [facility] [address] [phone] Everett Arriaga MD [address] [place] [address] Health Maintenance Due Date Last [...] Procedure Name Priority Date/Time Associated Diagnosis Comments [facility] BONE DENSITOMETRY AXIAL SKELETON Routine 11/23/2023 9:58 AM SENIOR PRODUCT ENGINEER Encounter for monitoring aromatase inhibitor therapy from Last 3 Months or Most Recently Relevant to Health Maintenance Results * [facility] BONE DENSITOMETRY AXIAL SKELETON (11/23/2023 9:58 AM SENIOR PRODUCT ENGINEER) Anatomical Region Laterality Modality BODY N/A Other Narrative 11/23/2023 11:24 AM SENIOR PRODUCT ENGINEER EXAMINATION: [facility] BONE DENSITOMETRY AXIAL SKELETON INDICATIONS: Encounter for [...] Signature: 11/23/2023 11:24:30 us Emma Martínez APRN, HAND ICER IMG DEXA ORDERABL ES Final Result from Last 3 Months or Most Recently Relevant to Health Maintenance Insurance MEDICARE C [facility] [address] Care Teams Steel Cutter Relationship Specialty Start Date End Date Jacey Handley MD [address] [place] [address] PCP - General Internal Medicine 08/18/22 Everett Arriaga MD [address] [place] [address] Consulting Physician Oncology 10/20/20
--- OUTSIDE RECORDS SUMMARY | 2025-01-23 16:42 | XMS_ITS | Encounter Summary ---
Author Organization [facility] Address [address] [place] [address] Phone Care Team Providers Care Guest Experience Captain Name Role Phone Delia Harry MD Primary Care Provider [phone] Ysabel Winters MD Primary Care Provider [phone] Jacey Handley MD Primary Care Provider [phone] Elijah Palumbo MD Unavailable Truman Dillon MD Unavailable [phone] Davin Madsen MD Unavailable [phone] Reason for Visit * Reason Onset Date Comments Zoom invite 09/22/2020 1:44pm YR spoke with Ms. Blancas and set her up for testing 10/01/2020 10:00am Encounter Details Date Type Department Care Team (Late st Contact Info) Description 09/22/2020 Documentation [facility] [address] [place] [address] First Floor [address] [place] [address] Ewelina Fung CNA Zoom invite (1:44pm YR [...] on file Legal Sex Female 1:15 AM BINDER AND BOX BUILDER Gender Identity Female 10/30/2020 9:29 PM BINDER AND BOX BUILDER Sexual Orientation Straight 10/30/2020 9: 29 PM BINDER AND BOX BUILDER documented as of this encounter Plan of Treatment Not on file documented as of this encounter Visit Diagnoses Not on filedocumented in this encounter Care Teams Guest Experience Captain Relationship Specialty Start Date End Date Delia Harry MD [address] [facility] [address] [place] [address] PCP - General 01/18/19 12/06/20 Ysabel Winters MD [address] [facility] [address] [place] [address] PCP - General 12/07/20 12/07/22 Jacey Handley MD [address] [facility] [place] [address] PCP - General Internal Medicine 12/08/22 Elijah Palumbo MD [address] [place] [address] Referring Physician Gastroenterology 07/11/24 Truman Dillon MD [address] [facility] [phone] [place] [address] Surgeon Colon and Rectal Surgery 07/23/24 Davin Madsen MD [address] [facility] [address] [place] [address] Estimator Gastroenterology 07/23/24 documented as of this encounter
--- OUTSIDE RECORDS SUMMARY | 2025-01-23 16:42 | XMS_ITS | Encounter Summary ---
Author Organization [facility] Address [address] [place] [address] Phone Care Team Providers Care Cake Wringer Name Role Phone Delia Harry MD Primary Care Provider [phone] Ysabel Winters MD Primary Care Provider [phone] Jacey Handley MD Primary Care Provider [phone] Elijah Palumbo MD Unavailable Truman Dillon MD Unavailable Davin Madsen MD Unavailable [phone] Encounter Details Date Type Department Care Team [...] on file Legal Sex Female 1:15 AM BAGGAGE AGENT SUPERVISOR Gender Identity Female 10/30/2020 9:29 PM BAGGAGE AGENT SUPERVISOR Sexual Orientation Straight 10/30/2020 9: 29 PM BAGGAGE AGENT SUPERVISOR documented as of this encounter Plan of Treatment Not on file documented as of this encounter Procedures Procedure Name Priority Date/Time Associated Diagnosis Comments SCAN - RADIOLOGY/IMAGING 10/28/2020 documented in this encounter Results * SCAN - RADIOLOGY/IMAGING (10/28/2020) Anatomical Region Laterality Modality Other us Provider Scanning Final Result documented in this encounter Visit Diagnoses Not on filedocumented in this encounter Care Teams Cake Wringer Relationship Specialty Start Date End Date Delia Harry MD [address] [facility] [address] [place] [address] PCP - General 01/18/19 12/06/20 Ysabel Winters MD [address] [facility] [address] [place] [address] PCP - General 12/07/20 12/07/22 [place] [address] PCP - General Internal Medicine 12/08/22 Elijah Palumbo MD [address] [place] [address] Referring Physician Gastroenterology 07/11/24 Truman Dillon MD [address] [facility] [phone] [place] [address] Surgeon Colon and Rectal Surgery 07/23/24 Davin Madsen MD [address] [facility] [address] [place] [address] Take Down Sorter Gastroenterology 07/23/24 documented as of this encounter
--- OUTSIDE RECORDS SUMMARY | 2025-01-23 16:42 | XMS_ITS | Clinical Summary ---
Author Organization [facility] Address [address] [place] [address] Care Team Providers Care Turn Machine Operator Name Role Phone Gen Kirk MD Unavailable [phone] Miguel Angel Tamayo MD Unavailable [phone] Checo Kuhn NP Primary Care Provider [phone] Allergies No known active allergies Medications atorvastatin [...] Active Active Problems No known active problems Encounters Date Type Department Care Team Description 01/06/2025 3:19 PM COMMUNITY INTEGRATION SPECIALIST - 01/06/2025 11:59 PM COMMUNITY INTEGRATION SPECIALIST Hospital Encounter [facility] [address] [place] [address] Checo Kuhn NP Discharge Disposition: Home or Self Care (Routine Discharge) 01/06/2025 Travel from Last 3 Months Family History Medical History Relation Comments Breast Cancer Sister Relation Status Comments Sister Social History Tobacco Use Types Packs/Day Years Used Date Smoking Tobacco: Never Smokeless Tobacco: Never Comments No Sex and Gender Information Value Date Recorded Sex Assigned at Female 01/06/2025 3:13 PM COMMUNITY INTEGRATION SPECIALIST Legal Sex Female 7:41 PM CDT Gender [...] Info) Description 02/25/2025 12:[address] [facility] [address] [place] [address] Dora Nunez NP [address] [place], [place] [address] Health Maintenance Due Date Last Done Comments Annual Medicare Wellness Visit 02/20/2005 COVID-19 Vaccine ( season) 2024 09/01/2021, 01/15/2021, 12/25/2020 Influenza Adult (#1) 2024 09/03/2022, 11/18/2021, 09/23/2020, Additional history exists DTaP, Tdap and Td Vaccines (3 - Td or Tdap) 11/09/2025 11/09/2015, 05/06/2003, 06/01/1998 Pneumococcal Vaccine: 65+ Years Completed 09/03/2019, 11/29/2016 Zoster Vaccines Completed 10/26/2020, 01/2020, 10/16/2020, Additional history exists RSV Immunization or 60+ Years Completed 11/29/2023 Dexa Scan (General) Completed 01/01/2024, 11/23/2023, 11/23/2023, Additional history exists Meningococcal B Vaccine Aged Out No l onger eligible based on patient's age to complete this topic Meningococcal Vaccine Aged Out No silvia sánchez eligible based on patient's age to complete this topic RSV Immunizations Under 20 Months Aged Out No longer eligible based on patient's age to complete this topic Procedures Procedure Name Priority Date/Time Associated Diagnosis Comments MRI BRAIN WO CON Routine 01/06/2025 3:54 PM COMMUNITY INTEGRATION SPECIALIST Headache, unspecified Other chronic pain Other amnesia Unspecified dementia, unspecified severity, without behavioral disturbance, psychotic disturbance, mood disturbance, and anxiety ([facility]) BONE DENSITY/DEXA Routine 10/25/2019 1:5 0 PM COMMUNITY INTEGRATION SPECIALIST Postmenopausal from Last 3 Months or Most Recently Relevant to Health Maintenance Results * MRI BRAIN WO CON (01/06/2025 3:54 PM COMMUNITY INTEGRATION SPECIALIST) Anatomical Region Laterality Modality Head Magnetic Resonan ce 01/08/2025 5:14 AM COMMUNITY INTEGRATION SPECIALIST Impressions 01/08/2025 5:16 AM COMMUNITY INTEGRATION SPECIALIST IMPRESSION: ===== 1. No acute intracranial abnormalities. No MRI findings to explain patient's symptoms. 2. Atrophy and small vessel ischemic disease. 3. Minimal ethmoid mucosal sinus disease Referred By: CHECO KUHN Interpreted By: Cr Sullivan MD, 01/08/2025 5:14 AM Narrative 01/08/2025 5:16 AM COMMUNITY INTEGRATION SPECIALIST [address] [address] EXAMINATION: MRI brain without contrast. EXAM DATE/TIME: 01/06/2025 3:40 PM REASON FOR EXAM: ORDERING PROVIDER COMMENT: BRAIN STEM HEADACHE, UNSPECIFIED, OTHER CHRONIC PAIN, OTHER AMNESIA, UNSPECIFIED DEMENTIA, UNSPECIFIED SEVERITY, WITHOUT BEHAVIORAL DISTURBANCE, PSYC Memory loss for the past 6-8 months COMPARISON: No prior brain MRI TECHNIQUE: Multiplanar multisequence MRI of the brain was obtained without the use of IV contrast agent. FINDINGS: There is no abnormal increased signal on diffusion-weighted imaging to suggest an acute infarct. No evidence of intracranial hemorrhage. Ventricles are enlarged with prominent bilateral sulci. Patchy areas of FLAIR signal abnormality are seen in the periventricular deep white matter. Bilateral lens extractions with otherwise unremarkable orbital contents. Minimal ethmoid mucosal sinus disease. Paranasal sinuses otherwise clear. Mastoid air cells are clear. Major intracranial intravascular arterial flow voids at the skull base appear intact. Visualized portion of parotid glands unremarkable. No evidence of mass, mass effect, or midline shift. Sella and suprasellar regions unremarkable. No abnormal signal in the visualized cervical cord on T1 imaging. ===== Procedure Note Cr Sullivan MD - 01/08/[address] [address] EXAMINATION: MRI brain without contrast. EXAM DATE/TIME: 01/06/2025 3:40 PM REASON FOR EXAM: ORDERING PROVIDER COMMENT: BRAIN STEM HEADACHE, UNSPECIFIED, OTHER CHRONICPAIN, OTHER AMNESIA, UNSPECIFIED DEMENTIA, UNSPECIFIED SEVERITY, WITHOUTBEHAVIORAL DISTURBANCE, PSYC Memory loss for the past 6-8 months COMPARISON: No prior brain MRI TECHNIQUE: Multiplanar multisequence MRI of the brain was obtained withoutthe use of IV contrast agent. FINDINGS: There is no abnormal increased signal on diffusion-weightedimaging to suggest an acute infarct. No evidence of intracranialhemorrhage. Ventricles are enlarged with prominent bilateral sulci.Patchy areas of FLAIR signal abnormality are seen in the periventriculardeep white matter. Bilateral lens extractions with otherwise unremarkableorbital contents. Minimal ethmoid mucosal sinus disease. Paranasalsinuses otherwise clear. Mastoid air cells are clear. Major intracranialintravascular arterial flow voids at the skull base appear intact.Visualized portion of parotid glands unremarkable. No evidence of mass,mass effect, or midline shift. Sella and suprasellar regionsunremarkable. No abnormal signal in the visualized cervical cord on [id number]. ===== IMPRESSION: ===== 1. No acute intracranial abnormalities. No MRI findings to explainpatient's symptoms. 2. Atrophy and small vessel ischemic disease. 3. Minimal ethmoid mucosal sinus disease Referred By: CHECO KUHN Interpreted By: Cr Sullivan MD, 01/08/2025 5:14 AM Checo Kuhn NP MRI Final Result * BONE DENSITY/DEXA (10/25/2019 1:50 PM COMMUNITY INTEGRATION SPECIALIST) Anatomical Region Laterality Modality Bone Mammography 10/25/2019 3:00 PM COMMUNITY INTEGRATION SPECIALIST Impressions 10/25/2019 3:02 PM COMMUNITY INTEGRATION SPECIALIST Impression: BMD measured at AP lumbar spine at WHO category level of osteoporosis. BMD measured at both total hips and both femoral necks at level of osteopenia. Narrative 10/25/2019 3:02 PM COMMUNITY INTEGRATION SPECIALIST Examination: DEXA Bone densitometry EXAM DATE: 10/25/2019 [...] Most Recently Relevant to Health Maintenance Insurance [facility] Care Teams Turn Machine Operator Relationship Specialty Start Date End Date Checo Kuhn NP [address] [place] [address] PCP - General Nurse Practitioner Family 01/03/25 Gen Kirk MD [employer] Wire Coiler Machine Operator INTERVENTIONAL CARDIOLOGY 08/28/19 Miguel Angel Tamayo MD [address] [place] [address] Referring Physician GENERAL SURGERY 08/20/19
--- OUTSIDE RECORDS SUMMARY | 2025-01-23 16:42 | XMS_ITS | Data Portability ---
Author Organization [facility] Address [address] [place] [address] Care Team Providers Care Water Softener Service Supervisor Name Role Phone KENNETH BOWLING OTHER SELINA LOWERY Medical Oncologist LUIS OTERO Rough Rounder [phone] RENETTA HAMEED Genetic Engineer MATRY MCGARRY Filtration Plant Mechanic Assessment Encounter Date Assessment Date Assessment LastModified by Organization Details LastModified Time 01/20/2022 01/20/2022 planning to transition to new PCP doctor after February 18 Not available 01/20/2022 16:48:38 Plan of Treatment Reminders Order Date Submit Date Provider Last Modified By Organization Details Last Modified Time Details Appointments None recorded. Lab BMP, serum or plasma 2021 [facility], [place], [address], 14:37:01 vitamin B12 + folate, serum or blood 2021 [facility], [place], [address], 10:37:47 Referral None recorded. Procedures None recorded. Surgeries None recorded. Imaging None recorded. Medication Orders sertraline 50 mg tablet 2021 [facility] [address] [place], [address], 13:46:13 carvedilol 6.25 mg tablet 2021 022 [facility] [address] [place], [address], 13:46:16 losartan 50 mg tablet [address] [facility] [address] [place], [address], 14:03:59 levothyroxi ne 75 mcg tablet 2020 021 [facility] [address] [place], [address], 13:23:45 Patient TargetsNo targets recorded. Patient Instructions Encounter Date Encounter Id Patient Instructions Last Modified By Organization Details Last Modified Time 05/20/2021 [id number] follow needed in January 2022 Not available 05/20/2021 13:24:06 01/20/2022 [id number] she is still planning to change to PCP close to where she currenly lives Not available 01/20/2022 22:50:10 Reason for Referral None Reported. Results Created Date Observation Date Name Description Value Unit Range Abnormal Flag Note LastModifiedBy Organization Detail LastModifiedTime 04/27/2004/28/2021 BMP, serum or plasm a glucose 122 mg/dL 65-99 above high normal Not Available [facility] ([facility]) [address] [place], [address], 04/28/2021 06:13:11 04/27/2004/28/2021 BMP, serum or plasm a BUN 8 mg/dL 8-27 Not Available [facility] ([facility]) [address] [place], [address], 04/28/2021 06:13:11 04/27/20 21 04/28/2021 BMP, serum or plasm a creatinine 0.88 mg/dL 0.57-1 .00 Not Available [facility] ([facility]) [address] [place], [address], 04/28/2021 06:13:11 04/27/20 21 04/28/2021 BMP, serum or plasm a eGFR if nonafricn AM 62 mL/mi n/1.7 3 >59 Not Available [facility] ([facility]) [address] [place], [address], 04/28/2021 06:13:11 04/27/20 21 04/28/2021 BMP, serum [...] SN Task force . Not Available [facility] ([facility]) [address] [place], [address], 04/28/2021 06:13:11 04/27/2004/28/2021 BMP, serum or plasm a BUN/creatini ne ratio 9 12-28 below low normal Not Available [facility] ([facility]) [address] [facility] [place], [address], 04/28/2021 06:13:11 04/27/2004/28/2021 BMP, serum or plasm a sodium 130 mmol/ L 134-14 4 below low normal Not Available [facility] ([facility]) [address] [facility] [place], [address], 04/28/2021 06:13:11 04/27/2004/28/2021 BMP, serum or plasm a potassium 4.5 mmol/ L 3.5-5. 2 Not Available [facility] ([facility]) [address] [facility] [place], [address], 04/28/2021 06:13:11 04/27/20 21 04/28/2021 BMP, serum or plasm a chloride 94 mmol/ L 96-106 below low normal Not Available [facility] ([facility]) [address] [facility], [place], [address], 04/28/2021 06:13:11 04/27/20 21 04/28/2021 BMP, serum or plasm a carbon dioxide, total 24 mmol/ L 20-29 Not Available [facility] ([facility]) [address] [facility], [place], [address], 04/28/2021 06:13:11 04/27/2004/28/2021 BMP, serum or plasm a calcium 9.6 mg/dL 8.7-10 .3 Not Available [facility] ([facility]) [address] [facility], [place], [address], 04/28/2021 06:13:11 04/28/20 21 04/20/2021 CT, brain , w/o contr ast No observ ation record ed. Not Available 2020 16:44:39 06/24/20 21 06/24/2021 CT, neck, soft tissu e, w/ contr ast No observ ation record ed. [email or web address] [address], [place], [address], 06/25/2021 15:48:59 07/05/20 21 mg diag W samreen bilat digi [facility] [address] [place] [address] This is a summar y report . The comple te report is availa ble in the patien t's medica l record . If you cannot access the medica l record , please contac t the sendin g organi zasean for a detail ed fax or copy. EXAMIN ATION: Digita l bilate ral diagno stic mammog asad with 3-D tomogr aphy ACCESS ION: [id number] EXAM DATE/T NNEKA: 9:56 AM REASON FOR EXAM: F/U Right breast cancer COMPAR ZHANE: 020, 019, 017, 2013 TECHNI QUE: Digita l diagno stic mammog jerica of both breast s was perfor med in additi on to 3-D Tomosy nthesi s techni que. This study was read with the assist ance of a IPPLEX er-aid ed detect ion system . TISSUE [...] By: Anthony Murphy MD, 10:24 AM [facility] [address] [place], [address], 07/05/2021 14:09:53 01/04/20 22 mg diag W samreen RT digi [facility] [address] [place] [address] This is a summar y report . The comple te report is availa ble in the patien t's medica l record . If you cannot access the medica l record , please contac t the debra harrison for a detail ed fax or copy. Examin ation: Digita l right diagno stic mammog asad with 3-D tomosy nthesi s Access ion: [id number] Exam Date/T nneka: 022 12:31 PM [...] read with the assist ance of a IPPLEX er-aid ed detect ion system . Tissue [...] to sugges t malign tita. ===== IMPRES CLARSISA: ===== 1. No new findin gs in the right breast to sugges t malign tita. Assess ment: ACR BI-RAD S 2 - BENIGN FINDIN G(S) Recomm endati on: 1:Rout ine Screen ing Bilate ral Commen ts: Patien t may return to annual screen ing mammog ejrica unless earlie r reeval uation or contin ued diagno stic follow -up is desire d by debra guerrero nVeronica Ordere d By: BRANDAN SUÁREZ Electr onical ly Signed By: Richmond henning MD on 022 12:57 PM Interp reted By: Richmond henning MD, 022 12:55 PM [facility] [address] [place], [address], 01/06/2022 17:43:29 01/14/20 22 01/14/2022 XR, chest , 2 view No observ ation record ed. [address], [place], [address], 01/14/2022 14:58:43 Result Notes None recorded. 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 712451809 Active 2018 Not Available [facility] 0 04:34:47 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 2019 bilatera lly Delia Harry MD Attn: Accounting ,[address] [place], [address] , [place] [facility] 09:44:57 Acute stress disorder 19496352 Active 2020 Delia Harry MD Attn: Accounting ,[address] [place], [address] , [place] 19:16:52 Hyponatr emia 04310838 Active 2021 Delia Harry MD Attn: Accounting ,[address] [place], [address] , [facility] 2 13:47:26 Hypothyr oidism 26641875 Active Not Available [facility] 0 04:34:48 Osteopor osis 28283067 Active Not Available [facility] 0 04:34:47 Headache 01900934 Active Not Available [facility] 0 04:34:47 Abdomina l pain 75703479 Active Not Available [facility] 0 04:34:48 Constipa tion 59921972 Active Not Available [facility] 0 04:34:48 Fatigue 48934432 Active Not Available [facility] 0 04:34:47 Epigastr ic pain 56578604 Active Not Available [facility] 0 04:34:48 Divertic ulosis of colon without divertic ulitis 994340793 Active Not Available [facility] 0 04:34:47 Cerebrov ascular accident 284705796 Active 2016 Not Available [facility] 0 04:34:48 Hyperlip idemia 77965781 Active 2016 Not Available [facility] 0 04:34:48 Arthriti s 3023879 Active 2016 Bilatera l hands Not Available [facility] 0 04:34:47 Problem Notes None recorded. Procedures Surgical History Date Name Laterality Status Provider Name and Address Organization Details Recorded Time 09/20/20 19 Excision addl breast lesion completed Delia Harry MD Attn: Accounting,[address] [facility], [place], [address], [facility] 09/20/2019 16:42:21 08/09/20 19 biopsy of breast completed Delia Harry MD Attn: Accounting,[address] [facility], [place], [address], [facility] 08/12/2019 14:23:58 10/17/20 18 prosthetic total arthroplasty of right shoulder completed Delia Harry MD Attn: Accounting,[address] [facility], [place], [address], [facility] 10/18/2018 08:26:39 11/29/19 17 AIMS completed Felisa Thompson MA [place] [facility] 11/29/2016 15:08:32 11/29/19 17 SLUMS EXAM completed Felisa Thompson MA [place] [facility] 11/29/2016 15:08:32 Hysterectomy completed Delia Espinal RECREATION PROGRAMMER- Attn: Accounting,[address], [place], [address], [facility] 07/23/2015 16:25:02 Imaging Results Imaging Date Name Status LastModified by Organiz ation Details LastModified Time 04/20/2021 CT, brain, w/o contrast completed [facility] Information not available 04/28/2021 16:44:39 06/24/2021 CT, neck, soft tissue, w/ contrast completed [facility] [address], [place], [address], 06/25/2021 15:48:59 07/05/2021 mg diag W samreen bilat digi completed [address], [place], [address], 07/05/2021 14:09:53 01/04/2022 mg diag W samreen RT digi completed LEIDA [address], [place], [address], 01/06/2022 17:43:29 01/14/2022 XR, chest, 2 view completed [address], [place], [address], 01/14/2022 14:58:43 Procedure Notes None recorded. Medical [...] Updated DateTime 1 165.1 cm 18.3 kg/m2 47279.5 6 g 99 % 99 % 69 /min 97.2 [degF] 138 mm[Hg] 62 mm[Hg] Tulio Bazan MA [facility] 10:50:05 Date Recorded Systolic blood pressure Diastolic blood pressure Systolic blood pressure Diastolic blood pressure Provider Name and Address Organization Details Last Updated DateTime 09/21/2021 138 mm[Hg] 60 mm[Hg] 124 mm[Hg] 78 mm[Hg] Delia boyd MD Attn: Accounting ,[address] [place], [address] , [facility] 11:30:23 Date Recorded Body height Body mass index (BMI) Body weight Oxygen saturation Oxygen saturation in Arterial blood by Pulse oximetry Body temperature Heart rate Systolic blood pressure Diastolic blood pressure Provider Name and Address Organization Details Last Updated DateTime 1 165.1 cm 18.5 kg/m2 54593.8 5 g 99 % 99 % 97 [degF] 68 /min 140 mm[Hg] 70 mm[Hg] Jono Gunn MA [facility] 1 11:02:08 Date Recorded Systolic blood pressure Diastolic blood pressure Provider Name and Address Organization Details Last Updated DateTime 10/07/2021 132 mm[Hg] 70 mm[Hg] Delia Harry MD Attn: Accounting,[address] [place], [address], [facility] 10/07/2021 11:19:00 Date Recorded Body height Body mass index (BMI) Body weight Body temperature Oxygen saturation Oxygen saturation in Arterial blood by Pulse oximetry Heart rate Systolic blood pressure Diastolic blood pressure Provider Name and Address Organization Details Last Updated DateTime 2 165.1 cm 18.7 kg/m2 87394.1 g 97.8 [degF] 99 % 99 % 68 /min 122 mm[Hg] 72 mm[Hg] Gisselle Kenyon MA [facility] 2 15:51:39 Date Recorded Systolic blood pressure Diastolic blood pressure Provider Name and Address Organization Details Last Updated DateTime 01/20/2022 122 mm[Hg] 70 mm[Hg] Delia Harry MD Attn: Accounting,[address] [facility], [place], [address], [place] [facility] 01/20/2022 16:41:10 Date Recorded Body height Provider Name an d Address Organization Details Last Updated DateTime 02/15/2022 165.1 cm Jono Gunn MA [facility] 02/16/20 22 11:35:56 Social History Question Answer Notes LastModified by Organizat ion Details LastModified Time Tobacco Smoking Status Never Smoker Felisa Thompson MA null, [facility] 10/27/2014 14:15:07 Do You Have An Advance [...] completed Delia Harry MD Attn: Accounting,[address] [place], [address], [facility] 01/20/2022 16:49:09 Hep A, live attenuated 8 completed Delia Harry MD Attn: Accounting,[address] [place], [address], [facility] 01/20/2022 16:49:09 Hep B, adult 2 completed Delia Harry MD Attn: Accounting,[address] [facility], [place], [place], [address] [place] [address], [place] [facility] 01/20/2022 16:49:09 Hep B, adult 2 completed Delia Harry MD Attn: Accounting,[address] [facility], [place], [place], [address] [place] [address], [place] [facility] 01/20/2022 16:49:09 Hep B, adult 2 completed Delia Harry MD Attn: Accounting,[address] [facility], [place], [place], [address] [place] [address], [place] [facility] 01/20/2022 16:49:09 Influenza, high-dose, quadrivalent, PF 0 completed Delia Harry MD Attn: Accounting,[address] [facility], [place], [place], [address] [place] [address], [place] [facility] 01/20/2022 16:49:09 zoster recombinant 0 completed Delia Harry MD Attn: Accounting,[address] [facility], [place], [place], [address] [place] [address], [place] [facility] 01/20/2022 16:49:09 zoster recombinant 0 completed Delia Harry MD Attn: Accounting,[address] [facility], [place], [place], [address] [place] [address], [place] [facility] 01/20/2022 16:49:09 COVID-19, mRNA, LNP-S, PF, 30 mcg/0.3 mL dose 1 completed Delia Harry MD Attn: Accounting,[address] [facility], [place], [place], [address] [place] [address], [place] [facility] 01/20/2022 16:49:09 COVID-19, mRNA, LNP-S, PF, 30 mcg/0.3 mL dose 1 completed Delia Harry MD Attn: Accounting,[address] [facility], [place], [place], [address] [place] [address], [place] [facility] 01/20/2022 16:49:09 COVID-19, mRNA, LNP-S, PF, 30 mcg/0.3 mL dose 1 completed Delia Harry MD Attn: Accounting,[address] [facility], [place], [place], [address] [place] [address], [facility] 01/20/2022 16:49:09 Influenza, split virus, quadrivalent, preservative 1 completed Delia Harry MD Attn: Accounting,[address] [facility], [place], [place], [address] [place] [address], [facility] 01/20/2022 16:49:09 Pneumococcal conjugate PCV 13 7 completed Not Available [facility] 12/07/2019 02:33:03 Tdap 3 completed Delia Harry MD Attn: Accounting,[address] [facility], [place], [place], [address] [place] [address], [facility] 01/20/2022 16:49:09 pneumococcal polysaccharide PPV23 9 completed Not Available [facility] 12/07/2019 02:38:42 Tdap 5 completed Not Available [facility] 12/07/2019 02:43:45 typhoid, parenteral 8 completed Delia Harry MD Attn: Accounting,[address] [facility], [place], [place], [address] [place] [address], [facility] 01/20/2022 16:49:09 Past Encounters Encounter ID Performer Location Encounter Start Date Encounter Closed Date Diagnosis/Indication Diagnosis SNOMED-CT Code Diagnosis ICD10 Code Diagnosis Note [id number] Virgen Tovar [facility] [address] [place] [address] 10/27/2014 14:00:52 10/27/2014 15:38:32 Headache 30020476 shi's poss r/t sinus--lauren l try to treat as such MMSE normal--di scussed concerns. Watch for increased signs. concern for excess gas--try probiotics or phazyme [id number] Virgen Serna [facility] [address] [place] [address] 07/23/2015 14:22:12 07/23/2015 16:35:05 Abdominal pain 96776300 some of sx seem to be reflux--wi ll treat w/ otc Nexium--sa mples given for 1 wk watch what she eats Constipation 88798620 st art Psyllium daily plus Probiotics cont colase--se e if correcting constipati on makes he feel better consider CT of Abd/pelvis if not better in 2 wks Fatigue 37284965 lab soon--chp and Vit D [id number] Delia Teddy [facility] [address] [place] [address] 11/09/2015 15:12:33 11/09/2015 16:24:15 Adult health examination 506842191 Z00.00 reviewed healthy lifestyle cont reg activity/ good diet Epigastric pain 40896524 R10.13 will check Hpylori back on PPI-- diet as solange [id number] [address] [address] 08/02/2016 15:15:05 08/15/2016 13:13:37 Fatigue 47521256 R53.83 will check lab. reviewed diet. cont Vit B compex. reviewed meds from GI--need notes. [id number] [facility] [address] [address] 11/29/2016 14:53:52 12/20/2016 16:12:25 Adult health examination 527722429 Z00.00 reviewed healthy lifestyle. discussed issues of memory. discussed balance/di zziness. Balance exercise handout. pt will schedule her awn mamm/bone dens Osteoporosis 03528070 M8 1.0 get bone density Shoulder joint pain 2679 31787 M25.519 reviewed notes from [facility]THO--con sidering surg--disc ussed. cont ROM exercises Neuropathy 438906797 G62 .9 try B complex. good supporting shoes Ganglion cyst 83514938 M 67.40 believe lumps in hands are ganglion cysts--jeronimo cts not to do anything right now--will watch [id number] [facility] [address] [address] 12/21/2016 09:33:58 01/20/2017 10:32:26 Osteoporosis 17336536 M81.0 reviewed bone density--r eally needs to be treated. info given on Reclast and Prolia--wi ll research them and get back to us. cont Ca++ w/ D Mammography abnormal 168 797216 R92.8 reviewed Mamm--need s Dx on L History of cerebrovascular accident without residual deficits 097552338 Z86.73 reviewed hosp records. she will cont w/ daily asa and statin as solange. s/w reluctant to take but will try to take 3 x wk at least. questions if some of sx were from dehydratio n--make sure she keeps hydrated. has May appt w/ spec. at [place]--wi keep [id number] Marco Granados MD [address] [address] 04/11/2017 09:56:57 04/19/2017 11:06:16 Dizziness 448586746 R42 Check labs. Boost samples. Hand pain 80374885 M79.6 42 Check labs. [id number] Marco Granados MD [address] [address] 04/25/2017 09:53:39 05/01/2017 12:14:10 Hypothyroidism 31190475 E03.9 Hyperlipidemia 21777531 E78.5 Cerebrovas cular accident 291833277 I63.9 Dizziness 107704311 R42 Better with meclizine prn. Osteoarthritis 003623046 M19.90 Taking celebrex once daily, as needed, and helping a lot. Vitamin D deficiency 347 [address]4450 E55.9 Low normal, continue vit d supplement ation, take with beneficial fats like coconut oil to help improve absorption . [id number] Marco Granados MD [address] [address] 08/25/2017 14:03:08 09/04/2017 16:22:50 Cerebrovascular accident 943595355 I63.9 One year in Nov 2017. Hypothyroidism 00203231 E03.9 Hyperlipidemia 69387478 E78.5 Osteoporosis 28200237 M8 1.0 Per DEXA scan done in 12/06, then she had one again in 07/06, shows improvemen t in T scores after being on OTC ca and vit d, continue. Fatigue 25566158 R53.83 Could be manifestat ion of depression , labs all rad normal. Unlikely to be sleep apnea. Will try low dose sertraline to see whether that helps. Lives by self, she never , never had kids. Shoulder pain 27668108 M 25.511 Chronic low back pain 27 8946136 M54.5 [id number] Marco Granados MD [facility] [address] [place] [address] 10/17/2017 10:19:55 10/25/2017 16:04:35 Cerebrovascular accident 145576183 I63.9 One year in Nov 2017. Arthritis 5632979 M19.90 Hypothyroidism 65355620 E03.9 Hyperlipidemia 35651607 E78.5 Osteoporosis 26338666 M8 1.0 Per DEXA scan done in 12/06, then she had one again in 07/06, shows improvemen t in T scores after being on OTC ca and vit d, continue. Depressive disorder 3548 9007 F32.89 Continue sertraline . Synovial c yst of popliteal space 77293379 M71.22 Will try oral steroids, if no help, may need orthopedic referral later. Aphthous u lcer of mouth 776879108 K12.0 [id number] Marco Granados MD [facility] [address] [place] [address] 12/22/2017 15:38:41 12/26/2017 14:40:05 Complaining of - postnasal drip 503143448 R09.82 Eczema 10876880 L30.9 [id number] Delia Harry MD [facility] [address] [place] [address] 05/14/2018 12:03:02 05/15/2018 09:07:40 Hypothyroidism 06674460 E03.9 to have lab check in July and follow up in the beginning of August Adult [facility] examination 521034336 Z00.00 healthy and appropriat e-- risk for CVD with prior stroke History of cerebrovascular accident 148368480 Z86.73 I advised she take ASA 81 mg daily Hyperlipidemia 52236951 E78.5 I advised to decrease the atorvastat in ot M-W- since last lipids were exceptiona l and she is considerin g stopping med since she is opposed to taking meds in principal Chronic hoarseness 50339 25224 105 R49.0 I advised she try the nasal steroid daily for at least a month to treat the hoarseness -- probably related to PND. I did not see PND on exam -- she had seen ENT in the past [id number] Sana saunders [facility] [address] [place] [address] 08/17/2018 09:50:36 08/17/2018 12:50:26 Hypothyroidism 33195518 E03.9 to have lab check in July and follow up in the beginning of August Hyperlipidemia 36384113 E78.5 I advised to decrease the atorvastat in ot -- since last lipids were exceptiona l and she is considerin g stopping med since she is opposed to taking meds in principal Fatigue 72811370 R53.83 [id number] Delia Harry MD [facility] [address] [place] [address] 08/21/2018 10:14:53 08/22/2018 09:44:10 Hypothyroidism 84485308 E03.9 lab reviewed and copy to patient-- stable Hyperlipidemia 04702002 E78.5 I advised to continue the atorvastat in on Degenerati ve joint disease involving multiple joints 524861163 M15.9 consider surgical correction of the right shoulder-- letter for patient to continue with exercise program-- like [place] Senile osteopenia 950696 06 M85.80 wants a letter for exercise program coverage since not covered with her health insurance Total bili lee above reference range [id number] 07842 R17 this is stable for patient-- no further evaluation needed-- likely Gilbert's [id number] Delia Harry MD [facility] [address] [place] [address] 03/05/2019 09:08:10 03/05/2019 13:45:12 Hyperlipidemia 73661281 E78.5 no lipids added since doing well with chol [facility] Abdominal pain 04976439 R10.9 no additional fiber tables and NO DAIRY for one month. You jeramie contin wit the PROBIOTIC and STOOL SOFTNER at this time. Likely IBS. You will call in a month for prescripti on trial of BENTYL if not better wtih dairy eliminatio n Degenerati ve joint disease involving multiple joints 812795199 M15.9 the arthritis lauren likely trigger intermitte nt pain-- stay active and note that inactivity does lead to greater pain and stiffness. Hypothyroidism 28851773 E03.9 lab reviewed and copy to patient-- stable Long-term drug therapy 065741513 Z79.232 [id number] Delia Harry MD [facility] [address] [place] [address] 08/05/2019 12:15:58 08/05/2019 14:53:26 Mass of right breast [id number] N63.10 I recommend a visit with Dr Whyte and to have [id number] Delia Harry MD [facility] [address] [place] [address] 09/03/2019 09:19:54 09/03/2019 11:31:36 Degenerative joint disease involving multiple joints 593031756 M15.9 the arthritis lauren likely trigger intermitte nt pain-- stay active and note that inactivity does lead to greater pain and stiffness. 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 She does not want to start any new medication s and would like to wait til after the surgery to think about therapy. 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 I would suggest RECLAST generic-- if affordable from [facility]- let me know Influenza vaccination declined [id number] Z28.21 discussed and refused [id number] Delia Harry MD [facility] [address] [place] [address] 03/11/2020 11:54:30 03/11/2020 14:37:16 Hypothyroidism 93207155 E03.9 lab reviewed form 04/2019 -- stable-- will need retesting then-- unless test done per memory evaluation protocol Poor short -term memory 461635740 R41.3 memory referral per patient request Constipation 15921522 K5 9.00 management discussed and diet likely trigger-- since better through and worse since -- mainstay of treatment- - MIRALAX-- every day-- dose increase to TID until stools are soft / renewal of daily BMs [id number] Delia Harry MD [facility] [address] [place] [address] 03/26/2020 10:44:40 03/27/2020 12:02:04 Photodermatitis due to sun 922192742 L56.2 OK to use HYDROCORTI SONE 1% three times a day-- try this for a week and if not better-- call of see Dermatolog ist if not better. OK to use benedryl pill form-- not cream--at bedtime for itching [id number] Delia Harry MD [facility] [address] [place] [address] 08/17/2020 14:01:37 08/17/2020 18:21:15 Paresthesia of lower extremity 959501117 R20.2 this may be a side effect related to the anastrazol e but the benefit outweighs this as a risk-- I would recommend continuing treatment Degenerati ve joint disease involving multiple joints 677154395 M15.9 Long-term drug therapy 171620266 Z79.899 if the lab testing is negative-- will need to X RAY the areas of pain Hypothyroidism 73865938 E03.9 lab reviewed -- will need retesting tomorrow History of malignant neoplasm of breast 220135846 Z85.3 [id number] [place] [address] [place] [address] 11/09/2020 10:51:32 11/09/2020 15:53:09 Paresthesia of lower extremity 121931372 R20.2 again , this may be a side effect related to the anastrazol e but the benefit outweighs this as a risk-- I would recommend continuing treatmentb 12 and folate normal Dupuytren' s disease of palm 062294383 M72.0 seeing hand surgeon [id number] Delia Harry MD [place] [address] [place] [address] 01/19/2021 09:02:09 01/20/2021 12:00:02 Acute low back pain 896348698 M54.5 I advise to get the XRAYs completed and will make plans pending outcome Pain in ri ght hip joint 5981557000 29088 M25.551 xray ordered and patient to pospone any nerve testing until after the xrays-- the feet numbness persists and the testing was not completed in Nov as scheduled originally due to a lost order at [facility]-- if retesting advised-- she wants to have the test done elsewhere [id number] Delia Harry MD [place] [address] [facility] [address] [place] [address] 04/09/2021 13:29:49 04/12/2021 12:31:11 Acute stress disorder 24597123 F43.0 I offered counseling or assisted and declined-- she agrees to start low dose sertraline and follow up in one month for reassessme nt to see if med change or dose adjustment will be needed [id number] Delia Harry MD [facility] [address] [facility] [address] [place] [address] 04/27/2021 14:21:44 04/28/2021 14:58:42 Long-term drug therapy 768517916 Z79.899 if the lab testing ordered since new start AKIL inhibitor. Will get records from [facility] ER visits Acute stress disorder 67 480999 F43.0 I offered counseling or assisted and declined-- she agrees to increase the dose sertraline since still worrying and not herself and troubled with sleeping. She is to follow up in one month for reassessme nt to see if med change or dose adjustment will be needed Benign ess ential hypertension 2066126 I10 no dose change in LISINOPRIL and will re-evaluat e in one week-- will get the reports from the ER [id number] Delia Harry MD [facility] [address] [facility] [address] [place] [address] 05/20/2021 08:56:53 05/20/2021 16:13:55 Acute stress disorder 98560651 F43.0 she is feeling better and she agrees to taper the dose sertraline -- I advised 25 mg daily for another week ( started taper on 05/12 per patient case)-- and then take 25 mg every other day for 14 days-- then stop. If anxiety increases- - she will contact office to restart sertraline 25 mg daily Hypothyroidism 71776022 E03.9 lab reviewed -- will need retesting tomorrow [id number] Delia Harry MD [facility] [address] [facility] [address] [place] [address] 09/21/2021 10:30:29 09/21/2021 15:49:44 Benign essential hypertension 9105635 I10 dose change in LOSARTAN to 50 mg and will re-evaluat e in two weeks Generalize d anxiety disorder 91882487 F41.1 I advised her to cont taking sertraline for at least 6 weeks to evaluate it's effect on anxiety-- do not stop taking this med-- and take it daily Osteoporosis 74937885 M8 1.[address] [facility] plans to stop taking RECLASt-- will need to re-evaluat e with DEXA to reassess bone density ( last check was Oct 2019) [id number] Delia Harry MD [facility] [address] [facility] [address] [place] [address] 10/07/2021 10:47:59 10/08/2021 10:45:26 Acute stress disorder 60364348 F43.0 she is feeling better and she agrees to taper the dose sertraline - now to start sertraline 25 mg daily. Follow up in 3 mo with plan to transition off med if continues to improve with adjustment disorder Benign ess ential hypertension 6000346 I10 advised no dose change in LOSARTAN 50 mg and will re-evaluat e with plan to change in 3 months back to 25 mg daily if BP well controlled -- <150/>90-- goal 130/80. No interest in lowering BP less than 100 systolic Adjustment disorder with anxious mood 46865480 F43.22 she is feeling better and she agrees to taper the dose sertraline - now to start sertraline 25 mg daily. Follow up in 3 mo with plan to transition off med if continues to improve with adjustment disorder [id number] Delia Harry MD [facility] [address] [place] [address] 01/20/2022 15:38:29 01/21/2022 14:29:02 Essential hypertension 94722089 I10 no change in the dose of the LOSARTAN 100 mg dialy due to max benefit after 14 days of this current dose-- will reassess after co nt to take and record home BP readingsho me monitor was tested today and accuracy was very goodI advised ER follow up with cardiologi st at [facility] and I advised Dr Alta Santamaria-- she has name and contact informatio n and prefers to set up appointmen t with cardiologi st herself Hyponatremia 33024603 E8 7.1 follow up from ER sodium of 131 needed Unsteady when walking 22 421820 R26.89 cause not clear---ab le to walk outdoors with her sister for exercise [id number] Delia Harry MD [facility] [address] [place] [address] 02/15/2022 09:55:49 02/15/2022 17:43:50 Essential hypertension 87950225 I10 cont to take and record home BP readingsco nt with the carvedilol 6.25 mg BID ( instead of cutting dose in 11/21)cont home monitor was tested today and accuracy was very goodget up slowlydrin k plenty of fluidssee cardiologi st as arranged in a week Acute stress disorder 67 730599 F43.0 she is feeling better Follow up in 3 mo with plan to transition off med if continues to improve with adjustment disorder Hyponatremia 09615735 E8 7.1 improving and electrolyt es reviewed [...] 2 [employer] [place] (MEDICARE SUPPLEMENT) PLAN N Vanda Blancas [id number] Vanda Blancas 05/20/2021 2 [place] Vanda Blancas [id number] Vanda Blancas 09/21/2021 2 [employer] [place] (MEDICARE SUPPLEMENT) PLAN N Vanda Blancas [id number] Vanda Blancas 09/21/2021 2 [place] Vanda Blancas [id number] Vandacody Blancas 10/07/2021 2 [employer] [place] (MEDICARE SUPPLEMENT) PLAN N Vanda Blancas [id number] Vanda Blancas 10/07/2021 2 [place] Vanda Blancas [id number] Vandacody Blancas 01/20/2022 2 [place] Vanda Blancas [id number] Vanda Blancas 01/20/2022 1 [facility] (MEDICARE REPLACEMENT/AD VANTAGE - HMO) [id number] Vanda Annie Echevarriaada [id number] Vanda Swathiada 02/15/2022 1 [facility] (MEDICARE REPLACEMENT/AD VANTAGE - HMO) [id number] Vanda Annie Blancas [id number] Vandacody Blancas Notes Date Note Type Note [...] visit. Delia Harry MD Attn: Accounting,[address] [place], [address], [facility] 05/20/2021 13:24:39 1 text/html Hypertension F/UReported bypatient.Associated [...] f/u Delia Harry MD Attn: Accounting[address] [facility], [place], [address], [facility] 09/21/2021 13:20:02 1 text/html Hypertension F/UReported bypatient.Associated [...] worse Delia Harry MD Attn: Accounting[address] [place], [address], [facility] 10/07/2021 19:07:54 2 text/html Hypertension F/UReported bypatient.Associated [...] done Delia Harry MD Attn: Accounting[address] [place], [address], [facility] 01/20/2022 22:51:36 2 text/html Hypertension F/UReported bypatient.Associated Symptoms:no shortness of breath; no edema;dizziness;lighthead edness;chest pain(tightness); pt states that sometimes when standing up she has to move around a little to get stabilized, she will see acid pumper 02/22/22 Lifestyle:regular exercise; exercises 7 times/week; exercises for 15-20 minutes/day Medications:taking medications as directed;side effects from medications(numbness hand new med); checks blood pressure at home, range:Notes:no answer at 12:15 pmcalled back for appointmentplans to see Dr. Macias next [id number] /[id number] thinks she is go over test results. Delia Harry MD Attn: Accounting[address] [place], [address], [facility] 02/15/2022 13:47:36 OBGyn Episode No OBEpisode recorded.
--- OUTSIDE RECORDS SUMMARY | 2025-01-23 16:42 | XMS_ITS | Patient Health Summary ---
Author Organization [facility] Address [address] [place] [address] Care Team Providers Care Speech And Drama Teacher Name Role Phone Marco Granados MD Primary Care Provider [phone] Note from [facility],non-owned Affiliates and Associated Physician Practices is amultiple site organization consisting of ambulatory clinics and hospital sitesin [place], [place], [place] and [place]. This disclosure is being madepursuant to the Care Everywhere program and may not contain all information available regarding this patient. Last updated 18.[facility] Active Problems Problem Noted Date Diagnosed [...] BRAIN METABOLIC EVAL IMAGING (11/23/2017 2:15 PM MOLDING LINE OPERATOR) Narrative [facility] - 12/25/2017 10:41 AM MOLDING LINE OPERATOR No Dictation. Altaf Hernandez DO NM ORDERABLES [facility] Care Teams Speech And Drama Teacher Relationship Specialty Start Date End Date Marco Granados MD [address] [place] [address] (work) PCP - General Internal Medicine 11/23/17
--- OUTSIDE RECORDS SUMMARY | 2025-01-23 16:42 | XMS_ITS | Referral Summary ---
Author Organization [facility] Address [address] [place] [address] Care Team Providers Care Sales And Marketing Director Name Role Phone Jacey Handley MD Primary Care Provider [phone] Elijah Palumbo MD Unavailable [phone] Truman Dillon MD Unavailable [phone] Davin Madsen MD Unavailable Allergies Active Allergy Reactions Criticality Noted Date [...] (KENALOG) 0.1 % cream 1 Active zoledronic eicm-gfhouohY-k ater (RECLAST) 5 mg/100 mL piggyback 2 [...] (07/16/2019): Added automatically from request for surgery [id number] 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 Stiffness of shoulder [...] file Legal Sex Female 1:15 AM LIBRARY HISTORIAN Gender Identity Female 10/30/2020 9:29 PM LIBRARY HISTORIAN Sexual Orientation Straight 10/30/2020 9: 29 PM LIBRARY HISTORIAN Last Filed Vital Signs Vital Sign Reading [...] on file Medical Devices Implanted Type Area Nursing Administrator Device Identifier Shelf Expiration Date Model / Serial / Lot Shoulder Replacement Right: Shoulder Procedures Procedure Name Priority Date/Time Associated Diagnosis Comments DEXA TBS AXIAL SKELETON BONE DENSITY 1 OR MORE SITES Schedule Routine, Read Routine (OP Routine) 01/01/2024 12:40 PM LIBRARY HISTORIAN Osteoporosis, unspecified osteoporosis type, unspecified pathological fracture presence from Last 3 Months or Most Recently Relevant to Health Maintenance Results * Dexa TBS Axial Skeleton Bone Density 1 or more sites (01/01/2024 12:40 PM LIBRARY HISTORIAN) Anatomical Region Laterality Modality Wrist, Body N/A Radiographic Daksha ging Narrative 01/03/2024 11:35 AM LIBRARY HISTORIAN Patient Name: Rey Blancas Date of : 1940 Date of scan: 01/01/2024 Bone mineral density was performed on a [employer] Discovery Densitometer. Based on machine cross-calibration and [...] by the International Society of Clinical Densitometry. [id number] Ayo Julien MD IMG DXA PROCEDURES Final Result from Last 3 Months or Most Recently Relevant to Health Maintenance Insurance MEDICARE SOLUTIONS [facility] MEDICARE Address: [facility] [address] [place] [address] MEDICARE SOLUTIONS MEDICARE SOLUTIONS Advance Directives For more information, please contact: [phone] Documents on File Type Date Recorded Patient Clinical Registered Nurse Expl anation ADVANCE DIRECTIVE 10/02/2018 12:00 AM [facility] ER OF DEHYDRATION UNIT OPERATOR FINANCIAL/MEDICAL * Full Code (Latest Code Status on File) Date Activated Date Inactivated Comments 07/19/2019 10:55 AM 07/19/2019 6:45 PM Care Teams Sales And Marketing Director Relationship Specialty Start Date End Date Jacey Handley MD [address] [facility] [place] [place] [address] PCP - General Internal Medicine 12/08/22 Elijah Palumbo MD [address] [place] [address] Referring Physician Gastroenterology 07/11/24 Truman Dillon MD [phone] [place] [address] Surgeon Colon and Rectal Surgery 07/23/24 Davin Madsen MD [address] [place] [address] Wet Trimmer Gastroenterology 07/23/24
--- OUTSIDE RECORDS SUMMARY | 2025-01-23 16:42 | XMS_ITS | Referral Summary ---
Author Organization [facility] Address [address] [place] [address] Care Team Providers Care Screw Machine Set Up Operator Tool Name Role Phone Marco Granados MD Primary Care Provider Source Comments [facility],non-owned Affiliates and Associated Physician Practices is amultiple site organization consisting of ambulatory clinics and hospital sitesin [place], [place], [place] and [place]. This disclosure is being madepursuant to the Care Everywhere program and may not contain all information available regarding this patient. Last updated 18.[facility] [employer] Text Active Problems Problem Noted Date Diagnosed Date [...] of Treatment Not on file Care Teams Screw Machine Set Up Operator Tool Relationship Specialty Start Date End Date Marco Granados MD [address] [place] [address] PCP - General Internal Medicine 11/23/17
--- OUTSIDE RECORDS SUMMARY | 2025-01-23 16:42 | XMS_ITS | Encounter Summary ---
Author Organization [facility] Address [address] [place] [address] Phone Care Team Providers Care Movie Editor Name Role Phone Delia Harry MD Primary Care Provider [phone] Everett Arriaga MD Unavailable [phone] Jacey Handley MD Primary Care Provider [phone] Reason for Visit * Reason Comments Medication Refill Encounter Details Date Type Department Care Team (Late st Contact Info) Description 10/21/2021 Refill [facility] [address] [address] Everett Arriaga MD [address] [place] [address] Medication Refill Social History Tobacco Use [...] Everett Arriaga MD - 10/22/2021 10:42 AM METER INSTALLER Ok to fill R INSTALLER * Telephone Encounter - Ruperto Olivarez RN - 10/22/2021 10:27 AM CST Refill request from pharmacy. Refill if appropriate. 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, estrogen receptor positive (HCC) Other osteoporosis, unspecified pathological fracture presence documented in this encounter Additional Health Concerns Assessment Noted Time PHQ-9 Depression Total Score: 1 01/13/20 21 3:49 PM METER INSTALLER documented as of this encounter Care Teams Movie Editor Relationship Specialty Start Date End Date Delia Harry MD [address] [address] PCP - General Family Medicine 08/13/19 08/16/22 [place] [address] PCP - General Internal Medicine 08/18/22 Everett Arriaga MD [address] [place] [address] Consulting Physician Oncology 10/20/20 documented as of this encounter
--- OUTSIDE RECORDS SUMMARY | 2025-01-23 16:42 | XMS_ITS | Encounter Summary ---
Author Organization [facility] Address [address] [place] [address] Phone Care Team Providers Care Demolition Specialist Name Role Phone Everett Arriaga MD Unavailable [phone] Jacey Handley MD Primary Care Provider [phone] Encounter Details Date Type Department Care Team (Late Contact Info) Description 08/12/2024 Telephone [facility] [address] [address] Eveertt Arriaga MD [address] [place] [address] Social History Tobacco Use Types Packs/Day [...] CDT Lab [facility] [address] [address] Lab, [facility] 02/28/2025 11:00 AM CDT Ancillary Procedure [facility] [address] [address] 02/28/2025 11:30 AM CDT Office Visit [facility] [address] [phone] Everett Arriaga MD [address] [place] [address] documented as of this encounter Visit Diagnoses Not on filedocumented in this encounter Additional Health Concerns Assessment Noted Time PHQ-9 Depression Total Score: 1 01/13/20 21 3:49 PM METAL FRAMER documented as of this encounter Care Teams Demolition Specialist Relationship Specialty Start Date End Date Jacey Handley MD [address] [place] [address] [place] [address] PCP - General Internal Medicine 08/18/22 Everett Arriaga MD [address] [place] [address] Consulting Physician Oncology 10/20/20 documented as of this encounter
--- OUTSIDE RECORDS SUMMARY | 2025-01-23 16:42 | XMS_ITS | Clinical Summary ---
Author Organization [facility] Address [address] [place] [address] Care Team Providers Care Sharepoint Solutions Architect Name Role Phone Jacey Handley MD Primary Care Provider [phone] Elijah Palumbo MD Unavailable Truman Dillon MD Unavailable [phone] Davin Madsen MD Unavailable [phone] Allergies Active Allergy Reactions Criticality Noted [...] (KENALOG) 0.1 % cream 1 Active zoledronic wvha-pyjkleiF-y ater (RECLAST) 5 mg/100 mL piggyback 2 [...] (07/16/2019): Added automatically from request for surgery [id number] 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 Stiffness of shoulder [...] Nov 2015 Cataract Arthritis Allergic rhinitis Cancer (HCC) HL (hearing loss) Dizziness Rosacea Degeneration [...] on file Legal Sex Female 1:15 AM TALLOW PUMPER Gender Identity Female 10/30/2020 9:29 PM TALLOW PUMPER Sexual Orientation Straight 10/30/2020 9: 29 PM TALLOW PUMPER Obstetrics History Last Filed Vital Signs Vital [...] 1940 Well Visit 65+ 02/20/2005 Covid-19 Vaccine (4 - 2023-2 5 season) 2024 09/01/2021, 01/15/2021, 12/25/2020 Influenza [...] history exists Medical Devices Implanted Type Area Sales Clerk Food Device Identifier Shelf Expiration Date Model / Serial / Lot Shoulder Replacement Right: Shoulder Procedures Procedure Name Priority Date/Time Associated Diagnosis Comments DEXA TBS AXIAL SKELETON BONE DENSITY 1 OR MORE SITES Schedule Routine, Read Routine (OP Routine) 01/01/2024 12:40 PM TALLOW PUMPER Osteoporosis, unspecified osteoporosis type, unspecified pathological fracture presence from Last 3 Months or Most Recently Relevant to Health Maintenance Results * Dexa TBS Axial Skeleton Bone Density 1 or more sites (01/01/2024 12:40 PM TALLOW PUMPER) Anatomical Region Laterality Modality Wrist, Body N/A Radiographic Daksha ging Narrative 01/03/2024 11:35 AM TALLOW PUMPER Patient Name: Rey Blancas Date of : 1940 Date of scan: 01/01/2024 Bone mineral density was performed on a HoloEXFO Discovery Densitometer. Based on machine cross-calibration and [...] by the International Society of Clinical Densitometry. [id number] Ayo Julien MD IMG DXA PROCEDURES Final Result from Last 3 Months or Most Recently Relevant to Health Maintenance [place] [address] MEDICARE SOLUTIONS MEDICARE SOLUTIONS Advance Directives For more information, please contact: [phone] Documents on File Type Date Recorded Patient Vault Installer Expl anation ADVANCE DIRECTIVE 10/02/2018 12:00 AM [facility] OF [employer]OO[employer] READER FINANCIAL/MEDICAL * Full Code (Latest Code Status on File) Date Activated Date Inactivated Comments 07/19/2019 10:55 AM 07/19/2019 6:45 PM Care Teams Sharepoint Solutions Architect Relationship Specialty Start Date End Date Jacey Handley MD [address] [employer] [facility] [place] [address] PCP - General Internal Medicine 12/08/22 Elijah Palumbo MD [address] [place] [address] Referring Physician Gastroenterology 07/11/24 Truman Dillon MD [phone] [place] [address] Surgeon Colon and Rectal Surgery 07/23/24 Davin Madsen MD [address] [facility] [address] [place] [address] Helicopter Utility Aircrewman Gastroenterology 07/23/24
--- OUTSIDE RECORDS SUMMARY | 2025-01-23 16:42 | XMS_ITS | Encounter Summary ---
Author Organization [facility] Address [address] [place] [address] Phone Care Team Providers Care Cyber Incident Responder Name Role Phone Everett Arriaga MD Unavailable [phone] Jacey Handley MD Primary Care Provider [phone] Reason for Visit * Reason Onset Date Comments Canopy Call 08/09/2024 Encounter Details Date Type Department Care Team (Late st Contact Info) Description 08/09/2024 Telephone [facility] [address] [place] [address] Everett Arriaga MD [address] [place] [address] Canopy Call Social History Tobacco [...] Arriaga MD Blunk, Jennifer A., RMA; Cc [facility] Nurse Pool3 hours ago [...] AM CDT Lab [facility] [address] [address] Lab, Cc [facility] 02/28/2025 11:00 AM CDT Ancillary Procedure [facility] [address] [address] 02/28/2025 11:30 AM CDT Office Visit [facility] [address] [address] Everett Arriaga MD [address] [place] [address] documented as of this encounter Results * (ABNORMAL) CMP (COMPREHENSIVE METABOLIC PANEL) (08/30/2024 9:25 AM CDT) Glucose 97 70 - 105 mg/dL [facility] Blood Urea Nitrogen 9 7 - 25 mg/dL [facility] Creatinine 0.7 0.6 - 1.2 mg/dL [facility] Sodium 129(L) 136 - 145 mEq/L [facility] Potassium 4.8 3.5 - 5.1 mEq/L [facility] Chloride 90(L) 98 - 107 mEq/L [facility] Bicarbonate 30 21 - 31 mEq/L [facility] Total Bilirubin 1.2(H) 0.3 - 1.0 mg/dL [facility] Alk. Phosphatase 58 34 - 104 U/L [facility] Aspartate Aminotransferase 22 13 - 39 U/L [facility] Alanine Aminotransferase 12 7 - 52 U/L [facility] Total Protein 7.0 6.4 - 8.9 g/dL [facility] Albumin 4.5 3.5 - 5.7 g/dL [facility] Calcium 10.0 8.6 - 10.3 mg/dL [facility] Anion Gap 13.8 7.0 - 15.0 mEq/L [facility] Globulin 2.5 2.0 - 3.5 g/dL [facility] EGFR 85 >60 ml/min/1. 73m2 [facility] CEO [facility] F[facility]ER [facility] Comment: This eGFR is calculated using 2020 CKD-EPI Creatinine equation without race modifier based on the NKF-ASN task force recommendations Blood 08/30/2024 9:25 AM CDT Narrative CANCER CEO & FOUNDER [facility] - 08/30/2024 11:54 AM CDT Release to patient->Immediate IS THE PATIENT REQUIRED TO BE FASTING FOR 8 HOURS?->No us Everett Arriaga MD CHEMISTRY ORDERABLES Final Result CANCER CEO & FOUNDER [facility] [place] [address], documented in this encounter Visit Diagnoses Diagnosis 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, estrogen receptor positive (HCC)- Primary 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, estrogen receptor positive (HCC) documented in this encounter Additional Health Concerns Assessment Noted Time PHQ-9 Depression Total Score: 1 01/13/20 21 3:49 PM SUPERVISOR STAGE CARPENTRY documented as of this encounter Care Teams Cyber Incident Responder Relationship Specialty Start Date End Date Jacey Handley MD [address] [employer] [place] [address] PCP - General Internal Medicine 08/18/22 Everett Arriaga MD [address] [place] [phone] Consulting Physician Oncology 10/20/20 documented as of this encounter
--- OUTSIDE RECORDS SUMMARY | 2025-01-23 16:42 | XMS_ITS | Clinical Summary ---
Author Organization [facility] Address [address] [place] [address] Care Team Providers Care Gauge Maker Name Role Phone Marco Granados MD Primary Care Provider [phone] Source Comments [facility],non-owned Affiliates and Associated Physician Practices is amultiple site organization consisting of ambulatory clinics and hospital sitesin [place], [place], [place] and [place]. This disclosure is being madepursuant to the Care Everywhere program and may not contain all information available regarding this patient. Last updated 18.[facility] Active Problems Problem Noted Date [...] age to complete this topic Care Teams Gauge Maker Relationship Specialty Start Date End Date Marco Granados MD [address] [place] [address] PCP - General Internal Medicine 11/23/17
--- OUTSIDE RECORDS SUMMARY | 2025-01-23 16:42 | XMS_ITS | Encounter Summary ---
Author Organization [facility] Facility Care Team Providers Care Direct Care Specialist Name Role Phone Delia Harry MD Primary Care Provider [phone] Ysabel Winters MD Primary Care Provider [phone] Jacey Handley MD Primary Care Provider [phone] Elijah Palumbo MD Unavailable [phone] Truman Dillon MD Unavailable [phone] Davin Madsen MD Unavailable [phone] Encounter Details Date Type Department Care Team (Latest Contact Info) Description 09/24/2018 Orders Only [facility] CLINCONV ProviderRobert MD [address] [place], [place] [id number] Social History Tobacco Use Types Packs/Day Years Used Date Smoking Tobacco: Never Alcohol Use Standard Drinks/Week Comments Yes 0 (1 standard drink = 0.6 oz pur e alcohol) Comments Unknown Sex and Gender Information Value Date Recorded Sex Assigned at Not on file Legal Sex Female 1:15 AM VESSEL SLAGMAN Gender Identity Female 10/30/2020 9:29 PM VESSEL SLAGMAN Sexual Orientation Straight 10/30/2020 9: 29 PM VESSEL SLAGMAN documented as of this encounter Plan of Treatment Not on file documented as of this encounter Procedures Procedure Name Priority Date/Time Associated Diagnosis Comments PROCEDURE - RESULT 09/24/2018 12 :00 AM VESSEL SLAGMAN documented in this encounter Results * PROCEDURE - RESULT (09/24/2018 12:00 AM VESSEL SLAGMAN) Narrative 09/24/2018 12:00 AM VESSEL SLAGMAN Ordered by an unspecified provider. us Historical Provider Final Res ult documented in this encounter Visit Diagnoses Not on filedocumented in this encounter Care Teams Direct Care Specialist Relationship Specialty Start Date End Date Delia Harry MD [address] [facility] [address] [place] [address] PCP - General 01/18/19 12/06/20 Ysabel Winters MD [address] [facility] [address] [place] [address] PCP - General 12/07/20 12/07/22 Jacey [place] [address] PCP - General Internal Medicine 12/08/22 Elijah Palumbo MD [address] [place] [address] Referring Physician Gastroenterology 07/11/24 Truman Dillon MD [phone] [place] [address] Surgeon Colon and Rectal Surgery 07/23/24 Davin Madsen MD [address] [facility] [address] [place] [address] Clinical Laboratory Technician Gastroenterology 07/23/24 documented as of this encounter
--- OUTSIDE RECORDS SUMMARY | 2025-01-23 16:42 | XMS_ITS | Clinical Summary ---
Author Organization [facility] Address [address] [place] [address] Phone Care Team Providers Care Workforce Planner Name Role Phone Jacey Handley MD Primary Care Provider [phone] Allergies No known active allergies Medications Medication [...] Comments Blood Pressure 128/70 11/09/2022 8:47 AM HINGING MACHINE OPERATOR Pulse 72 11/09/2022 8:47 AM HINGING MACHINE OPERATOR Temperature 35.3 C (95.5 F) 11/09/2022 8:47 AM HINGING MACHINE OPERATOR Respiratory Rate - - Oxygen Saturation - - Inhaled Oxygen Concentration - - Weight 50.3 kg (111 lb) 11/09/2022 8:47 AM HINGING MACHINE OPERATOR Height 165.1 cm (5' 5 ) 11/09/2022 8:47 AM HINGING MACHINE OPERATOR Body Mass Index 18.47 11/09/2022 8:47 AM HINGING MACHINE OPERATOR Plan of Treatment Health Maintenance Due Date Last Done Comments COVID-19 Vaccine ( season) 2024 09/01/2021, 01/15/2021, 12/25/2020 Influenza Vaccine (#1) 2024 09/03/2022 Pneumococcal PPSV23/PCV13 65 + Years / High and Highest Risk Completed 09/03/2019, 11/29/2016 Care Teams Workforce Planner Relationship Specialty Start Date End Date Jacey Handley MD [address] [employer] [address] PCP - General Internal Medicine 10/10/22
--- OUTSIDE RECORDS SUMMARY | 2025-01-23 16:42 | XMS_ITS | Encounter Summary ---
Author [employer] Preferred Language Faroese Marital Status Single Orthodox Affiliation Unknown Race White Ethnic Group Not or Lati no Author Organization [facility] Address [address] [place] [address] Phone Care Team Providers Care Marketing Information Manager Name Role Phone Delia Harry MD Primary Care Provider [phone] Everett Arriaga MD Unavailable [phone] Jacey aHndley MD Primary Care Provider [phone] Reason for Visit * Reason Comments Medication Refill Encounter Details Date Type Department Care Team (Late st Contact Info) Description 07/17/2022 Refill [facility] [place] [address] [place] [address] Everett Arriaga MD [address] [place] [address] Medication Refill Social History Tobacco Use [...] * Telephone Encounter - Emma Thacker, KELSEY, THERAPY TECHNICIAN - 07/18/2022 10:20 AM CDT Okay to refill. * Telephone Encounter - Christiana Sheppard RN - 07/18/2022 8:03 AM CDT Refill request from pharmacy Last filled 10/22/2021 #[id number] R-2 Please fill if appropriate documented in this encounter Plan of Treatment Upcoming Encounters Date Type Department Care Team (Late st Contact Info) Description 02/28/2025 10:15 AM CDT Lab [facility] [address] [phone] Lab, Cc [facility] 02/28/2025 11:00 AM CDT Ancillary Procedure [facility] [address] [phone] 02/28/2025 11:30 AM CDT Office Visit [facility] [address] [phone] Everett Arriaga MD [address] [place] [phone] documented as of this encounter Visit Diagnoses Diagnosis 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, estrogen receptor positive (HCC) Other osteoporosis, unspecified pathological fracture presence documented in this encounter Additional Health Concerns Assessment Noted Time PHQ-9 Depression Total Score: 1 01/13/20 21 3:49 PM BUSINESS TEACHER documented as of this encounter Care Teams Marketing Information Manager Relationship Specialty Start Date End Date Delia Harry MD [address] [address] PCP - General Family Medicine 08/13/19 08/16/22 Jacey Handley MD [address] [place] [address] PCP - General Internal Medicine 08/18/22 Everett Arriaga MD [address] [place] [phone] Consulting Physician Oncology 10/20/20 documented as of this encounter
--- OUTSIDE RECORDS SUMMARY | 2025-01-23 16:42 | XMS_ITS | Encounter Summary ---
Author Organization [facility] Address [address] [place] [address] Phone Care Team Providers Care Compensation And Benefits Analyst Name Role Phone Delia Harry MD Primary Care Provider [phone] Ysabel Winters MD Primary Care Provider [phone] Jacey Handley MD Primary Care Provider [phone] Elijah Palumbo MD Unavailable [phone] Truman Dillon MD Unavailable [phone] Davin Madsen MD Unavailable [phone] Encounter Details Date Type Department Care Team (Late st Contact Info) Description 10/24/2019 Orders Only [facility] Gastroenterology [address] [facility] [address] [place] [phone] Lolis Mcallister MD [address] [place] [address] [address] [place] [address] Social History Tobacco Use Types Packs/Day Years Used Date Smoking Tobacco: Never Smokeless Tobacco: Never Alcohol Use Standard Drinks/Week Comments Yes 2 (1 standard drink = 0.6 oz pur e alcohol) Comments No Sex and Gender Information Value Date Recorded Sex Assigned at Not on file Legal Sex Female 1:15 AM MAINTENANCE MECHANIC Gender Identity Female 10/30/2020 9:29 PM MAINTENANCE MECHANIC Sexual Orientation Straight 10/30/2020 9: 29 PM MAINTENANCE MECHANIC documented as of this encounter Plan of Treatment Not on file documented as of this encounter Visit Diagnoses Not on filedocumented in this encounter Care Teams Compensation And Benefits Analyst Relationship Specialty Start Date End Date Delia Harry MD [address] [facility] [address] [place] [address] PCP - General 01/18/19 12/06/20 Ysabel Winters MD [address] [facility] [address] [place] [address] PCP - General 12/07/20 12/07/22 [place] [address] PCP - General Internal Medicine 12/08/22 Elijah Palumbo MD [address] [place] [address] Referring Physician Gastroenterology 07/11/24 Truman Dillon MD [address] [facility] [phone] [place] [address] Surgeon Colon and Rectal Surgery 07/23/24 Davin Madsen MD [address] [facility] [address] [facility] [address] [place] [address] Nursing Support Worker Gastroenterology 07/23/24 documented as of this encounter
--- OUTSIDE RECORDS SUMMARY | 2025-01-23 16:42 | XMS_ITS | Encounter Summary ---
Author Organization [facility] Facility Care Team Providers Care Java Development Manager Name Role Phone Delia Harry MD Primary Care Provider [phone] Ysabel Winters MD Primary Care Provider [phone] Jacey Handley MD Primary Care Provider [phone] Elijah Palumbo MD Unavailable [phone] Truman Dillon MD Unavailable [phone] Davin Madsen MD Unavailable [phone] Encounter Details Date Type Department Care Team (Latest Contact Info) Description 10/17/2018 Orders Only [facility] CLINCONV ProviderRobert MD [address] [place], [place] [id number] Social History Tobacco Use Types Packs/Day Years Used Date Smoking Tobacco: Never Alcohol Use Standard Drinks/Week Comments Yes 0 (1 standard drink = 0.6 oz pur e alcohol) Comments Unknown Sex and Gender Information Value Date Recorded Sex Assigned at Not on file Legal Sex Female 1:15 AM HARDWOOD FALLER Gender Identity Female 10/30/2020 9:29 PM HARDWOOD FALLER Sexual Orientation Straight 10/30/2020 9: 29 PM HARDWOOD FALLER documented as of this encounter Plan of Treatment Not on file documented as of this encounter Procedures Procedure Name Priority Date/Time Associated Diagnosis Comments PROCEDURE - RESULT 10/17/2018 12 :00 AM HARDWOOD FALLER documented in this encounter Results * PROCEDURE - RESULT (10/17/2018 12:00 AM HARDWOOD FALLER) Narrative 10/17/2018 12:00 AM HARDWOOD FALLER Ordered by an unspecified provider. us Historical Provider Final Res ult documented in this encounter Visit Diagnoses Not on filedocumented in this encounter Care Teams Java Development Manager Relationship Specialty Start Date End Date Delia Harry MD [address] [facility] [address] [place] [address] PCP - General 01/18/19 12/06/20 Ysabel Winters MD [address] [facility] [address] [place] [address] PCP - General 12/07/20 12/07/22 [place] [address] PCP - General Internal Medicine 12/08/22 Elijah Palumbo MD [address] [place] [address] Referring Physician Gastroenterology 07/11/24 Truman Dillon MD [phone] [place] [address] Surgeon Colon and Rectal Surgery 07/23/24 Davin Madsen MD [address] [facility] [address] [place] [address] Mortgage Loan Originator Gastroenterology 07/23/24 documented as of this encounter
== END 2025-01-23 15:32 | disposition home or self-care (01) ==
LOC: ANHLAB 15:34
PROVIDERS: PCP Nurse Practitioner Family; Visit Provider Internal Medicine Nephrology
DX: N39.0 Urinary tract infection, site not specified (principal); R30.0 Dysuria
CPT/HCPCS: 81001; 87077; 87086; 87186

== ENCOUNTER 2025-01-29 14:23 | Emergency (ER) | payer MEDICARE, SELFPAY ==
[2025-01-29 14:48] VITALS: BP 131/58; PULSE 88; RESP 18; TEMP 36.2; O2SAT 99
--- NOTE | 2025-01-29 14:55 | ECG_ITS ---
Test Date: 2025-01-29 15:03:10 Measurements Intervals E[place] Rate: 81 P: 69 NM: 144 QRS: 53 QRSD: 79 T: 46 QT: 370 QTc: 432 Interpretive Statements SINUS RHYTHM POSSIBLE LEFT ATRIAL ENLARGEMENT [-0.1mV P-WAVE IN V1/V2] Compared to ECG 12/18/2024 23:12:13 No significant changes Electronically Signed On 01-30-2025 13:55:04 CDT by Uriah Poon M.D.
[2025-01-29 15:42] LABS: Basophils Absolute Auto 0.1 K/mm3 (0.0-0.1); Basophils Percent Auto 1.1 % (0.2-1.2); Eosinophils Percent Auto 0.4 % (0-4.4); Hematocrit 39.8 % (37.0-47.0); Hemoglobin 13.4 g/dL (12.0-15.0); Immature Granulocyte Absolute 0.02 K/mm3 (0.00-0.031); Immature Granulocyte Percent A 0.4 % (0-0.5); Lymphocytes Absolute Auto 1.41 K/mm3 (0.9-3.2); Mean Corpuscular HGB Conc 33.7 g/dl (32-36); Mean Corpuscular Hemoglobin 30.2 pg (26-34); Mean Corpuscular Volume 89.8 fl (80-100); Mean Platelet Volume 7.7 fl (7.4-10.4); Monocytes Absolute Auto 0.7 K/mm3 (0.1-0.6); Neutrophils Absolute Auto 3.3 K/mm3 (1.3-6.7); Neutrophils Percent Auto 60.1 % (45.5-73.1); Platelet Count Result 297 k/mm3 (150-375); Red Blood Count 4.43 M/mm3 (4.2-5.4); Red Cell Distribution Width 13.5 % (11.5-14.5); White Blood Count 5.4 K/mm3 (4.5-10.0)
[2025-01-29 15:53] LABS: Alanine Aminotransferase 22 U/L (6-35); Albumin Level 4.7 g/dL (3.5-5.1); Alkaline Phosphatase 59 U/L (38-126); Anion Gap 9 mmol/L (4-12); Aspartate Amino Transferase 28 U/L (14-36); Bilirubin,Total 0.8 mg/dL (0.2-1.3); Blood Urea Nitrogen 11 mg/dL (7-17); Carbon Dioxide 29 mmol/L (22-30); Chloride 95 mmol/L (98-107); Estimated CRCL calculation 31 ml/min; Estimated Glomerular Filt Rate 57; Glucose 145 mg/dL (65-110); Potassium 4.1 mmol/L (3.4-5.0); Sodium 133 mmol/L (137-145)
[2025-01-29 15:56] VITALS: BP 149/71; PULSE 81; RESP 18; TEMP 36.9; O2SAT 100
[2025-01-29 15:57] LABS: INR 0.9; Prothrombin Time 12.7 Seconds (11.1-14.7)
[2025-01-29 15:58] LABS: Partial Thromboplastin Time 24.7 Seconds (22.3-36.8)
--- OUTSIDE RECORDS SUMMARY | 2025-01-29 16:18 | XMS_ITS | Encounter Summary ---
Author Organization [facility] Address [address] [place] [address] Phone Care Team Providers Care Hammerer Helper Name Role Phone Everett Arriaga MD Unavailable [phone] Jacey Handley MD Primary Care Provider [phone] Reason for Visit * Reason Onset Date Comments Canopy Call 08/09/2024 Encounter Details Date Type Department Care Team (Late st Contact Info) Description 08/09/2024 Telephone [facility] [address] [place] [address] Everett Arriaga MD [address] [place] [address] Canopy Call Social History Tobacco [...] Arriaga MD Blunk, Jennifer A., RMA; Cc [facility] Nurse Pool3 hours ago (8:40 AM) MW [...] CDT Lab [facility] [address] [address] Lab, Cc [facility] 02/28/2025 11:00 AM CDT Ancillary Procedure [facility] [address] [address] 02/28/2025 11:30 AM CDT Office Visit [facility] [address] [address] Everett Arriaga MD [address] [place] [address] documented as of this encounter Results * (ABNORMAL) CMP (COMPREHENSIVE METABOLIC PANEL) (08/30/2024 9:25 AM CDT) Glucose 97 70 - 105 mg/dL [facility] Blood Urea Nitrogen 9 7 - 25 mg/dL [facility] Creatinine 0.7 0.6 - 1.2 mg/dL [facility] Sodium 129(L) 136 - 145 mEq/L [facility] Potassium 4.8 3.5 - 5.1 mEq/L [facility] Chloride 90(L) 98 - 107 mEq/L [facility] Bicarbonate 30 21 - 31 mEq/L [facility] Total Bilirubin 1.2(H) 0.3 - 1.0 mg/dL [facility] Alk. Phosphatase 58 34 - 104 U/L [facility] Aspartate Aminotransferase 22 13 - 39 U/L [facility] Alanine Aminotransferase 12 7 - 52 U/L [facility] Total Protein 7.0 6.4 - 8.9 g/dL [facility] Albumin 4.5 3.5 - 5.7 g/dL [facility] Calcium 10.0 8.6 - 10.3 mg/dL [facility] Anion Gap 13.8 7.0 - 15.0 mEq/L [facility] Globulin 2.5 2.0 - 3.5 g/dL [facility] EGFR 85 >60 ml/min/1. 73m2 CANCER TANK PUMPER [facility] Comment: This eGFR is calculated using 2020 CKD-EPI Creatinine equation without race modifier based on the NKF-ASN task force recommendations Blood 08/30/2024 9:25 AM CDT Narrative CANCER TANK PUMPER [facility] - 08/30/2024 11:54 AM CDT Release to patient->Immediate IS THE PATIENT REQUIRED TO BE FASTING FOR 8 HOURS?->No us Everett Arriaga MD CHEMISTRY ORDERABLES Final Result CANCER TANK PUMPER [facility] [place] [address], documented in this encounter Visit Diagnoses Diagnosis 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, estrogen receptor positive (HCC)- Primary 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, estrogen receptor positive (HCC) documented in this encounter Additional Health Concerns Assessment Noted Time PHQ-9 Depression Total Score: 1 01/13/20 21 3:49 PM CLINICAL NEUROPSYCHOLOGIST documented as of this encounter Care Teams Hammerer Helper Relationship Specialty Start Date End Date Jacey Handley MD [address] [place] [address] PCP - General Internal Medicine 08/18/22 Everett Arriaga MD [address] [place] [phone] Consulting Physician Oncology 10/20/20 documented as of this encounter
--- OUTSIDE RECORDS SUMMARY | 2025-01-29 16:18 | XMS_ITS | Encounter Summary ---
Author Organization [facility] Address [address] [place] [address] Phone Care Team Providers Care Filter Cleaner Name Role Phone Everett Arriaga MD Unavailable Jacey Handley MD Primary Care Provider [phone] Encounter Details Date Type Department Care Team (Late Contact Info) Description 08/12/2024 Telephone [facility] [address] [address] Everett Arriaga MD [address] [place] [address] Social History Tobacco Use Types Packs/Day [...] AM CDT Lab [facility] [address] [address] Lab, [facility] 02/28/2025 11:00 AM CDT Ancillary Procedure [facility] [address] [address] 02/28/2025 11:30 AM CDT Office Visit [facility] [address] [phone] Everett Arriaga MD [address] [place] [address] documented as of this encounter Visit Diagnoses Not on filedocumented in this encounter Additional Health Concerns Assessment Noted Time PHQ-9 Depression Total Score: 1 01/13/20 21 3:49 PM TEA LEAF READER documented as of this encounter Care Teams Filter Cleaner Relationship Specialty Start Date End Date Jacey Handley MD [address] [place] [address] [place] [address] PCP - General Internal Medicine 08/18/22 Everett Arriaga MD [address] [place] [address] Consulting Physician Oncology 10/20/20 documented as of this encounter
--- OUTSIDE RECORDS SUMMARY | 2025-01-29 16:18 | XMS_ITS | Clinical Summary ---
Author Organization [facility] Address [address] [place] [address] Phone Care Team Providers Care Appointment Clerk Name Role Phone Jacey Handley MD Primary Care Provider [phone] Allergies No known active allergies Medications Medication [...] Comments Blood Pressure 128/70 11/09/2022 8:47 AM SHIRT PRESSER Pulse 72 11/09/2022 8:47 AM SHIRT PRESSER Temperature 35.3 C (95.5 F) 11/09/2022 8:47 AM SHIRT PRESSER Respiratory Rate - - Oxygen Saturation - - Inhaled Oxygen Concentration - - Weight 50.3 kg (111 lb) 11/09/2022 8:47 AM SHIRT PRESSER Height 165.1 cm (5' 5 ) 11/09/2022 8:47 AM SHIRT PRESSER Body Mass Index 18.47 11/09/2022 8:47 AM SHIRT PRESSER Plan of Treatment Health Maintenance Due Date Last Done Comments COVID-19 Vaccine ( season) 2024 09/01/2021, 01/15/2021, 12/25/2020 Influenza Vaccine (#1) 2024 09/03/2022 Pneumococcal PPSV23/PCV13 65 + Years / High and Highest Risk Completed 09/03/2019, 11/29/2016 Care Teams Appointment Clerk Relationship Specialty Start Date End Date Jacey Handley MD [address] [place] [address] PCP - General Internal Medicine 10/10/22
--- OUTSIDE RECORDS SUMMARY | 2025-01-29 16:19 | XMS_ITS | Encounter Summary ---
Author Organization [facility] Address [address] [place] [address] Phone Care Team Providers Care Bi Solutions Architect Name Role Phone Delia Harry MD Primary Care Provider [phone] Ysabel Winters MD Primary Care Provider [phone] Jacey Handley MD Primary Care Provider [phone] Elijah Palumbo MD Unavailable [phone] Truman Dillon MD Unavailable [phone] Davin Madsen MD Unavailable [phone] Reason for Visit * Reason Onset Date Comments Zoom invite 09/22/2020 1:44pm YR spoke with Ms. Blancas and set her up for testing 10/01/2020 10:00am Encounter Details Date Type Department Care Team (Late st Contact Info) Description 09/22/2020 Documentation [facility] [address] [place] [address] [address] Floor [address] [place] [address] Ewelina Fung CNA Zoom invite (1:44pm YR [...] on file Legal Sex Female 1:15 AM PRINTING PRESSMAN Gender Identity Female 10/30/2020 9:29 PM PRINTING PRESSMAN Sexual Orientation Straight 10/30/2020 9: 29 PM PRINTING PRESSMAN documented as of this encounter Plan of Treatment Not on file documented as of this encounter Visit Diagnoses Not on filedocumented in this encounter Care Teams Bi Solutions Architect Relationship Specialty Start Date End Date Delia Harry MD [address] [facility] [address] [place] [address] PCP - General 01/18/19 12/06/20 Ysabel Winters MD [address] [facility] [address] [place] [address] PCP - General 12/07/20 12/07/22 Jacey Handley MD [facility] [place] [address] PCP - General Internal Medicine 12/08/22 Elijah Palumbo MD [address] [place] [address] Referring Physician Gastroenterology 07/11/24 Truman Dillon MD [phone] [place] [address] Surgeon Colon and Rectal Surgery 07/23/24 Davin Madsen MD [address] [facility] [address] [place] [address] Scrap Baler Gastroenterology 07/23/24 documented as of this encounter
--- OUTSIDE RECORDS SUMMARY | 2025-01-29 16:19 | XMS_ITS | Encounter Summary ---
Author Organization [facility] Care Team Providers Care Library Clerk Name Role Phone Delia Harry MD Primary Care Provider [phone] Ysabel Winters MD Primary Care Provider [phone] Jacey Handley MD Primary Care Provider [phone] Elijah Palumbo MD Unavailable [phone] Truman Dillon MD Unavailable [phone] Davin Madsen MD Unavailable [phone] Encounter Details Date Type Department Care Team (Latest Contact Info) Description 10/17/2018 Orders Only [facility] CLINCONV ProviderRobert MD [address] [place], [place] [id number] Social History Tobacco Use Types Packs/Day Years Used Date Smoking Tobacco: Never Alcohol Use Standard Drinks/Week Comments Yes 0 (1 standard drink = 0.6 oz pur e alcohol) Comments Unknown Sex and Gender Information Value Date Recorded Sex Assigned at Not on file Legal Sex Female 1:15 AM LAUNDERETTE ATTENDANT Gender Identity Female 10/30/2020 9:29 PM LAUNDERETTE ATTENDANT Sexual Orientation Straight 10/30/2020 9: 29 PM LAUNDERETTE ATTENDANT documented as of this encounter Plan of Treatment Not on file documented as of this encounter Procedures Procedure Name Priority Date/Time Associated Diagnosis Comments PROCEDURE - RESULT 10/17/2018 12 :00 AM LAUNDERETTE ATTENDANT documented in this encounter Results * PROCEDURE - RESULT (10/17/2018 12:00 AM LAUNDERETTE ATTENDANT) Narrative 10/17/2018 12:00 AM LAUNDERETTE ATTENDANT Ordered by an unspecified provider. us Historical Provider Final Res ult documented in this encounter Visit Diagnoses Not on filedocumented in this encounter Care Teams Library Clerk Relationship Specialty Start Date End Date Delia Harry MD [address] [facility] [address] [place] [address] PCP - General 01/18/19 12/06/20 Ysabel Winters MD [address] [facility] [address] [place] [address] PCP - General 12/07/20 12/07/22 [place] [address] PCP - General Internal Medicine 12/08/22 Elijah Palumbo MD [address] [place] [address] Referring Physician Gastroenterology 07/11/24 Truman Dillon MD [phone] [place] [address] Surgeon Colon and Rectal Surgery 07/23/24 Davin Madsen MD [address] [facility] [address] [place] [address] Classroom Instructional Aide Gastroenterology 07/23/24 documented as of this encounter
--- OUTSIDE RECORDS SUMMARY | 2025-01-29 16:19 | XMS_ITS | Clinical Summary ---
Author Organization [facility] Address [address] [facility] [address] [place] [address] Phone Care Team Providers Care Credit Card Specialist Name Role Phone Everett Arriaga MD Unavailable [phone] Jacey Handley MD Primary Care Provider [phone] Allergies Active Allergy Reactions Criticality Noted Date [...] Lnp-s, Pf, 3 0 Mcg/0.3 Ml Dose ([employer]) 01/15/2021,12/25/2020 Hepatitis A Vaccine 06/25/2019,03/19/2018 Hepatitis A, [...] AM CDT Lab [facility] [address] [address] Lab, [facility] 02/28/2025 11:00 AM CDT Ancillary Procedure [facility] [address] [address] 02/28/2025 11:30 AM CDT Office Visit [facility] [address] [phone] Everett Arriaga MD [address] [place] [address] Health Maintenance Due Date Last [...] Name Priority Date/Time Associated Diagnosis Comments [facility] BONE DENSITOMETRY AXIAL SKELETON Routine 11/23/2023 9:58 AM FIRE PROTECTION SPECIALIST Encounter for monitoring aromatase inhibitor therapy from Last 3 Months or Most Recently Relevant to Health Maintenance Results * [facility] BONE DENSITOMETRY AXIAL SKELETON (11/23/2023 9:58 AM FIRE PROTECTION SPECIALIST) Anatomical Region Laterality Modality BODY N/A Other Narrative 11/23/2023 11:24 AM FIRE PROTECTION SPECIALIST EXAMINATION: [facility] BONE DENSITOMETRY AXIAL SKELETON INDICATIONS: Encounter for [...] Signature: 11/23/2023 11:24:30 us Emma Martínez APRN, CUSTOMER SERVICE RECEPTIONIST IMG DEXA ORDERABL ES Final Result from Last 3 Months or Most Recently Relevant to Health Maintenance Insurance MEDICARE C [facility] Care Teams Credit Card Specialist Relationship Specialty Start Date End Date Jacey Handley MD [address] [place] [address] PCP - General Internal Medicine 08/18/22 Everett Arriaga MD [address] [place] [address] Consulting Physician Oncology 10/20/20
--- OUTSIDE RECORDS SUMMARY | 2025-01-29 16:19 | XMS_ITS | Clinical Summary ---
Author Organization [facility] Address [address] [place] [address] Care Team Providers Care Cone Examiner Name Role Phone Jacey Handley MD Primary Care Provider [phone] Elijah Palumbo MD Unavailable [phone] Truman Dillon MD Unavailable [phone] Davin Madsen MD Unavailable [phone] Allergies Active Allergy Reactions Criticality Noted [...] (KENALOG) 0.1 % cream 1 Active zoledronic erlt-obvaftiA-n ater (RECLAST) 5 mg/100 mL piggyback 2 [...] (07/16/2019): Added automatically from request for surgery [id number] 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 Stiffness of shoulder [...] on file Legal Sex Female 1:15 AM PERMIT TECHNICIAN Gender Identity Female 10/30/2020 9:29 PM PERMIT TECHNICIAN Sexual Orientation Straight 10/30/2020 9: 29 PM PERMIT TECHNICIAN Obstetrics History Last Filed Vital Signs [...] history exists Medical Devices Implanted Type Area Delinquency Prevention Social Worker Device Identifier Shelf Expiration Date Model / Serial / Lot Shoulder Replacement Right: Shoulder Procedures Procedure Name Priority Date/Time Associated Diagnosis Comments DEXA TBS AXIAL SKELETON BONE DENSITY 1 OR MORE SITES Schedule Routine, Read Routine (OP Routine) 01/01/2024 12:40 PM PERMIT TECHNICIAN Osteoporosis, unspecified osteoporosis type, unspecified pathological fracture presence from Last 3 Months or Most Recently Relevant to Health Maintenance Results * Dexa TBS Axial Skeleton Bone Density 1 or more sites (01/01/2024 12:40 PM PERMIT TECHNICIAN) Anatomical Region Laterality Modality Wrist, Body N/A Radiographic Daksha ging Narrative 01/03/2024 11:35 AM PERMIT TECHNICIAN Patient Name: Rey Blancas Date of : 1940 Date of scan: 01/01/2024 Bone mineral density was performed on a [employer] Discovery Densitometer. Based on machine cross-calibration and [...] by the International Society of Clinical Densitometry. 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 ADVANCE DIRECTIVE 10/02/2018 12:00 AM [facility] ER OF ILLUSIONIST FINANCIAL/MEDICAL * Full Code (Latest Code Status on File) Date Activated Date Inactivated Comments 07/19/2019 10:55 AM 07/19/2019 6:45 PM Care Teams Cone Examiner Relationship Specialty Start Date End Date Jacey Handley MD [address] [facility] [place] [address] PCP - General Internal Medicine 12/08/22 Elijah Palumbo MD [address] [place] [address] Referring Physician Gastroenterology 07/11/24 Truman Dillon MD [phone] [place] [address] Surgeon Colon and Rectal Surgery 07/23/24 Davin Madsen MD [address] [facility] [address] [place] [address] Photographic Intelligence Officer Gastroenterology 07/23/24
--- OUTSIDE RECORDS SUMMARY | 2025-01-29 16:19 | XMS_ITS | Encounter Summary ---
Author Organization [facility] Address [address] [place] [address] Phone Care Team Providers Care Laser Engraver Name Role Phone Delia Harry MD Primary Care Provider [phone] Everett Arriaga MD Unavailable [phone] Jacey Handley MD Primary Care Provider [phone] Reason for Visit * Reason Comments Medication Refill Encounter Details Date Type Department Care Team (Late st Contact Info) Description 07/17/2022 Refill [facility] [place] [address] [place] [address] Everett Arriaga MD [address] [place] [phone] Medication Refill Social History Tobacco Use [...] * Telephone Encounter - Emma Thacker, KELSEY, TRACK LAMINATING MACHINE TENDER - 07/18/2022 10:20 AM CDT Okay to refill. * Telephone Encounter - Christiana Sheppard RN - 07/18/2022 8:03 AM CDT Refill request from pharmacy Last filled 10/22/2021 #[id number] R-[id number] Please fill if appropriate documented in this encounter Plan of Treatment Upcoming Encounters Date Type Department Care Team (Late st Contact Info) Description 02/28/2025 10:15 AM CDT Lab [facility] [address] [phone] Lab, Cc [facility] 02/28/2025 11:00 AM CDT Ancillary Procedure [facility] [address] [phone] 02/28/2025 11:30 AM CDT Office Visit [facility] [address] [phone] Everett Arriaga MD [address] [place] [phone] documented as of this encounter Visit Diagnoses Diagnosis 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, estrogen receptor positive (HCC) Other osteoporosis, unspecified pathological fracture presence documented in this encounter Additional Health Concerns Assessment Noted Time PHQ-9 Depression Total Score: 1 01/13/20 21 3:49 PM CHIEF LENDING OFFICER documented as of this encounter Care Teams Laser Engraver Relationship Specialty Start Date End Date Delia Harry MD [address] [address] PCP - General Family Medicine 08/13/19 08/16/22 Jacey Handley MD [address] [place] [address] PCP - General Internal Medicine 08/18/22 Everett Arriaga MD [address] [place] [address] Consulting Physician Oncology 10/20/20 documented as of this encounter
--- OUTSIDE RECORDS SUMMARY | 2025-01-29 16:19 | XMS_ITS | Referral Summary ---
Author Organization [facility] Address [address] [place] [address] Care Team Providers Care Java Performance Engineer Name Role Phone Marco Granados MD Primary Care Provider [phone] Source Comments [facility],non-owned Affiliates and Associated Physician Practices is amultiple site organization consisting of ambulatory clinics and hospital sitesin [place], [place], [place]. This disclosure is being madepursuant to the Care Everywhere program and may not contain all information available regarding this patient. Last updated 18.[facility] [employer] Active Problems Problem Noted Date Diagnosed Date [...] of Treatment Not on file Care Teams Java Performance Engineer Relationship Specialty Start Date End Date Marco Granados MD [address] [place] [address] PCP - General Internal Medicine 11/23/17
--- OUTSIDE RECORDS SUMMARY | 2025-01-29 16:19 | XMS_ITS | Referral Summary ---
Author Organization [facility] Address [address] [place] [address] Care Team Providers Care Supervisor Display Fabrication Name Role Phone Jacey Handley MD Primary Care Provider [phone] Elijah Palumbo MD Unavailable Truman Dillon MD Unavailable [phone] Davin Madsen MD Unavailable [phone] Allergies Active Allergy Reactions Criticality Noted [...] (KENALOG) 0.1 % cream 1 Active zoledronic szpe-rqqhvqoB-j ater (RECLAST) 5 mg/100 mL piggyback 2 [...] (07/16/2019): Added automatically from request for surgery [id number] 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 Stiffness of shoulder [...] on file Legal Sex Female 1:15 AM JUKEBOX COIN COLLECTOR Gender Identity Female 10/30/2020 9:29 PM JUKEBOX COIN COLLECTOR Sexual Orientation Straight 10/30/2020 9: 29 PM JUKEBOX COIN COLLECTOR Last Filed Vital Signs Vital Sign Reading [...] on file Medical Devices Implanted Type Area Recoverer Device Identifier Shelf Expiration Date Model / Serial / Lot Shoulder Replacement Right: Shoulder Procedures Procedure Name Priority Date/Time Associated Diagnosis Comments DEXA TBS AXIAL SKELETON BONE DENSITY 1 OR MORE SITES Schedule Routine, Read Routine (OP Routine) 01/01/2024 12:40 PM JUKEBOX COIN COLLECTOR Osteoporosis, unspecified osteoporosis type, unspecified pathological fracture presence from Last 3 Months or Most Recently Relevant to Health Maintenance Results * Dexa TBS Axial Skeleton Bone Density 1 or more sites (01/01/2024 12:40 PM JUKEBOX COIN COLLECTOR) Anatomical Region Laterality Modality Wrist, Body N/A Radiographic Daksha ging Narrative 01/03/2024 11:35 AM JUKEBOX COIN COLLECTOR Patient Name: Rey Blancas Date of : 1940 Date of scan: 01/01/2024 Bone mineral density was performed on a [employer] Discovery Densitometer. Based on machine cross-calibration and [...] by the International Society of Clinical Densitometry. [id number] Ayo Julien MD IMG DXA PROCEDURES Final Result from Last 3 Months or Most Recently Relevant to Health Maintenance Insurance MEDICARE SOLUTIONS [facility] MEDICARE Address: [facility] [address] [place] [address] MEDICARE SOLUTIONS MEDICARE SOLUTIONS Advance Directives For more information, please contact: [phone] Documents on File Type Date Recorded Patient Dynamometer Tester Engine Expl anation ADVANCE DIRECTIVE 10/02/2018 12:00 AM [facility] ER OF SHOP MECHANIC HELPER FINANCIAL/MEDICAL * Full Code (Latest Code Status on File) Date Activated Date Inactivated Comments 07/19/2019 10:55 AM 07/19/2019 6:45 PM Care Teams Supervisor Display Fabrication Relationship Specialty Start Date End Date Jacey Handley MD [address] [facility] [place] [address] PCP - General Internal Medicine 12/08/22 Elijah Palumbo MD [address] [place] [address] Referring Physician Gastroenterology 07/11/24 Truman Dillon MD [phone] [place] [address] Surgeon Colon and Rectal Surgery 07/23/24 Davin Madsen MD [address] [place] [address] Can Cleaner Gastroenterology 07/23/24
--- OUTSIDE RECORDS SUMMARY | 2025-01-29 16:19 | XMS_ITS | Data Portability ---
Author Organization [facility] Address [address] [place] [address] Care Team Providers Care Whiskey Filterer Name Role Phone KENNETH BOWLING OTHER SELINA LOWERY Medical Oncologist LUIS OTERO Dope And Fabric Worker RENETTA HAMEED Fuel Efficient Aircraft Designer MARTY MCGARRY Nurses Supervisor Assessment Encounter Date Assessment Date Assessment LastModified by Organization Details LastModified Time 01/20/2022 01/20/2022 planning to transition to new PCP doctor after February 18 Not available 01/20/2022 16:48:38 Plan of Treatment Reminders Order Date Submit Date Provider Last Modified By Organization Details Last Modified Time Details Appointments None recorded. Lab BMP, serum or plasma 2021 [facility] [place], [address], 14:37:01 vitamin B12 + folate, serum or blood 2021 [facility] [place], [address], 10:37:47 Referral None recorded. Procedures None recorded. Surgeries None recorded. Imaging None recorded. Medication Orders sertraline 50 mg tablet 2021 [facility] [address] [place], [address], 13:46:13 carvedilol 6.25 mg tablet 2021 022 [facility] [address] [place], [address], 13:46:16 losartan 50 mg tablet [address] [facility] [address] [place], [address], 14:03:59 levothyroxi ne 75 mcg tablet 2020 021 [facility] [address] [place], [address], 13:23:45 Patient TargetsNo targets recorded. Patient Instructions Encounter Date Encounter Id Patient Instructions Last Modified By Organization Details Last Modified Time 05/20/2021 [id number] follow needed in January 2022 Not available 05/20/2021 13:24:06 01/20/2022 [id number] she is still planning to change to PCP close to where she currenly lives Not available 01/20/2022 22:50:10 Reason for Referral None Reported. Results Created Date Observation Date Name Description Value Unit Range Abnormal Flag Note LastModifiedBy Organization Detail LastModifiedTime 04/27/2004/28/2021 BMP, serum or plasm a glucose 122 mg/dL 65-99 above high normal Not Available [facility] ([facility]) [address] [place], [address], 04/28/2021 06:13:11 04/27/2004/28/2021 BMP, serum or plasm a BUN 8 mg/dL 8-27 Not Available [facility] ([facility]) [address] [place], [address], 04/28/2021 06:13:11 04/27/20 21 04/28/2021 BMP, serum or plasm a creatinine 0.88 mg/dL 0.57-1 .00 Not Available [facility] ([facility]) [address] [place], [address], 04/28/2021 06:13:11 04/27/20 21 04/28/2021 BMP, serum or plasm a eGFR if nonafricn AM 62 mL/mi n/1.7 3 >59 Not Available [facility] ([facility]) [address] [place], [address], 04/28/2021 06:13:11 04/27/20 21 04/28/2021 BMP, serum [...] SN Task force . Not Available [facility] ([facility]) [address] [place], [address], 04/28/2021 06:13:11 04/27/2004/28/2021 BMP, serum or plasm a BUN/creatini ne ratio 9 12-28 below low normal Not Available [facility] ([facility]) [address] [place], [address], 04/28/2021 06:13:11 04/27/2004/28/2021 BMP, serum or plasm a sodium 130 mmol/ L 134-14 4 below low normal Not Available [facility] ([facility]) [address] [place], [address], 04/28/2021 06:13:11 04/27/2004/28/2021 BMP, serum or plasm a potassium 4.5 mmol/ L 3.5-5. 2 Not Available [facility] ([facility]) [address] [place], [address], 04/28/2021 06:13:11 04/27/20 21 04/28/2021 BMP, serum or plasm a chloride 94 mmol/ L 96-106 below low normal Not Available [facility] ([facility]) [address], [place], [address], 04/28/2021 06:13:11 04/27/20 21 04/28/2021 BMP, serum or plasm a carbon dioxide, total 24 mmol/ L 20-29 Not Available [facility] ([facility]) [address], [place], [address], 04/28/2021 06:13:11 04/27/2004/28/2021 BMP, serum or plasm a calcium 9.6 mg/dL 8.7-10 .3 Not Available [facility] ([facility]) [address], [place], [address], 04/28/2021 06:13:11 04/28/20 21 04/20/2021 CT, brain , w/o contr ast No observ ation record ed. Not Available 2020 16:44:39 06/24/20 21 06/24/2021 CT, neck, soft tissu e, w/ contr ast No observ ation record ed. [email or web address] [address], [place], [address], 06/25/2021 15:48:59 07/05/20 21 mg diag W samreen bilat digi [facility] [address] [facility] [address] [place] [address] This is a summar y report . The comple te report is availa ble in the patien t's medica l record . If you cannot access the medica l record , please contac t the sendin g organi zasean for a detail ed fax or copy. EXAMIN ATION: Digita l bilate ral diagno stic mammog asad with 3-D tomogr aphy ACCESS ION: [id number] EXAM DATE/T NNEKA: 9:56 AM REASON FOR EXAM: F/U Right breast cancer COMPAR ZHANE: 020, 019, 017, 2013 TECHNI QUE: Digita l diagno stic mammog jerica of both breast s was perfor med in additi on to 3-D Tomosy nthesi s techni que. This study was read with the assist ance of a Tame er-aid ed detect ion system . TISSUE [...] reted By: Anthony Murphy MD, 10:24 AM [facility] [address] [place], [address], 07/05/2021 14:09:53 01/04/20 22 mg diag W samreen RT digi [facility] [address] [place] [address] This is a summar y report . The comple te report is availa ble in the patien t's medica l record . If you cannot access the medica l record , please contac t the debra harrison for a detail ed fax or copy. Examin ation: Digita l right diagno stic mammog asad with 3-D tomosy nthesi s Access ion: [id number] Exam Date/T nneka: 022 12:31 PM [...] read with the assist ance of a Tame er-aid ed detect ion system . Tissue [...] By: Richmond henning MD, 022 12:55 PM [facility] [address], [place], [address], 01/06/2022 17:43:29 01/14/20 22 01/14/2022 XR, chest , 2 view No observ ation record ed. [address], [place], [address], 01/14/2022 14:58:43 Result Notes None recorded. 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 213852646 Active 2018 Not Available [facility] 0 04:34:47 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 bilatera lly Delia Harry MD Attn: Accounting ,[address] [place], [address] , [place] [facility] 09:44:57 Acute stress disorder 46264448 Active 2020 Delia Harry MD Attn: Accounting ,[address] [place], [address] , [place] 19:16:52 Hyponatr emia 94623728 Active 2021 Delia Harry MD Attn: Accounting ,[address] [place], [address] , [facility] 2 13:47:26 Hypothyr oidism 50446695 Active Not Available [facility] 0 04:34:48 Osteopor osis 91109320 Active Not Available [facility] 0 04:34:47 Headache 49969009 Active Not Available [facility] 0 04:34:47 Abdomina l pain 53890852 Active Not Available [facility] 0 04:34:48 Constipa tion 49895857 Active Not Available [facility] 0 04:34:48 Fatigue 79255571 Active Not Available [facility] 0 04:34:47 Epigastr ic pain 94607088 Active Not Available [facility] 0 04:34:48 Divertic ulosis of colon without divertic ulitis 356682542 Active Not Available [facility] 0 04:34:47 Cerebrov ascular accident 453068053 Active 2016 Not Available [facility] 0 04:34:48 Hyperlip idemia 31690637 Active 2016 Not Available [facility] 0 04:34:48 Arthriti s 8969662 Active 2016 Bilatera l hands Not Available [facility] 0 04:34:47 Problem Notes None recorded. Procedures Surgical History Date Name Laterality Status Provider Name and Address Organization Details Recorded Time 09/20/20 19 Excision addl breast lesion completed Delia Harry MD Attn: Accounting,[address] [facility], [place], [address], [facility] 09/20/2019 16:42:21 08/09/20 19 biopsy of breast completed Delia Harry MD Attn: Accounting,[address] [facility], [place], [address], [facility] 08/12/2019 14:23:58 10/17/20 18 prosthetic total arthroplasty of right shoulder completed Delia Harry MD Attn: Accounting,[address] [facility], [place], [address], [facility] 10/18/2018 08:26:39 11/29/19 17 AIMS completed Felisa Thompson [place] [facility] 11/29/2016 15:08:32 11/29/19 17 SLUMS EXAM completed Felisa Thompson [place] [facility] 11/29/2016 15:08:32 Hysterectomy completed Delia Espinal [facility]- Attn: Accounting,[address], [place], [address], [facility] 07/23/2015 16:25:02 Imaging Results Imaging Date Name Status LastModified by Organiz ation Details LastModified Time 04/20/2021 CT, brain, w/o contrast completed [facility] Information not available 04/28/2021 16:44:39 06/24/2021 CT, neck, soft tissue, w/ contrast completed [facility] [address], [place], [address], 06/25/2021 15:48:59 07/05/2021 mg diag W samreen bilat digi completed [address], [place], [address], 07/05/2021 14:09:53 01/04/2022 mg diag W samreen RT digi completed LE[facility] [address], [place], [address], 01/06/2022 17:43:29 01/14/2022 XR, chest, 2 view completed [address], [place], [address], 01/14/2022 14:58:43 Procedure Notes None recorded. Medical [...] Updated DateTime 1 165.1 cm 18.3 kg/m2 14230.5 6 g 99 % 99 % 69 /min 97.2 [degF] 138 mm[Hg] 62 mm[Hg] Tulio Bazan MA [facility] 10:50:05 Date Recorded Systolic blood pressure Diastolic blood pressure Systolic blood pressure Diastolic blood pressure Provider Name and Address Organization Details Last Updated DateTime 09/21/2021 138 mm[Hg] 60 mm[Hg] 124 mm[Hg] 78 mm[Hg] Delia boyd MD Attn: Accounting ,[address] [place], [address] , [facility] 11:30:23 Date Recorded Body height Body mass index (BMI) Body weight Oxygen saturation Oxygen saturation in Arterial blood by Pulse oximetry Body temperature Heart rate Systolic blood pressure Diastolic blood pressure Provider Name and Address Organization Details Last Updated DateTime 1 165.1 cm 18.5 kg/m2 82383.8 5 g 99 % 99 % 97 [degF] 68 /min 140 mm[Hg] 70 mm[Hg] Jono Gunn MA [facility] 1 11:02:08 Date Recorded Systolic blood pressure Diastolic blood pressure Provider Name and Address Organization Details Last Updated DateTime 10/07/2021 132 mm[Hg] 70 mm[Hg] Delia Harry MD Attn: Accounting,[address] [place], [address], [facility] 10/07/2021 11:19:00 Date Recorded Body height Body mass index (BMI) Body weight Body temperature Oxygen saturation Oxygen saturation in Arterial blood by Pulse oximetry Heart rate Systolic blood pressure Diastolic blood pressure Provider Name and Address Organization Details Last Updated DateTime 2 165.1 cm 18.7 kg/m2 06303.1 g 97.8 [degF] 99 % 99 % 68 /min 122 mm[Hg] 72 mm[Hg] Gisselle Kenyon MA [facility] 2 15:51:39 Date Recorded Systolic blood pressure Diastolic blood pressure Provider Name and Address Organization Details Last Updated DateTime 01/20/2022 122 mm[Hg] 70 mm[Hg] Delia Harry MD Attn: Accounting,[address] [facility], [place], [address], [place] [facility] 01/20/2022 16:41:10 Date Recorded Body height Provider Name an d Address Organization Details Last Updated DateTime 02/15/2022 165.1 cm Jono Gunn MA [facility] 02/16/20 22 11:35:56 Social History Question Answer Notes LastModified by Organizat ion Details LastModified Time Tobacco Smoking Status Never Smoker Felisa Thompson MA null, [facility] 10/27/2014 14:15:07 Do You Have An [...] completed Delia Harry MD Attn: Accounting,[address] [place], [address], [facility] 01/20/2022 16:49:09 Hep A, live attenuated 8 completed Delia Harry MD Attn: Accounting,[address] [place], [address], [facility] 01/20/2022 16:49:09 Hep B, adult 2 completed Delia Harry MD Attn: Accounting,[address] [facility], [place], [place], [address] [place] [address], [place] [facility] 01/20/2022 16:49:09 Hep B, adult 2 completed Delia Harry MD Attn: Accounting,[address] [facility], [place], [place], [address] [place] [address], [place] [facility] 01/20/2022 16:49:09 Hep B, adult 2 completed Delia Harry MD Attn: Accounting,[address] [facility], [place], [place], [address] [place] [address], [place] [facility] 01/20/2022 16:49:09 Influenza, high-dose, quadrivalent, PF 0 completed Delia Harry MD Attn: Accounting,[address] [facility], [place], [place], [address] [place] [address], [place] [facility] 01/20/2022 16:49:09 zoster recombinant 0 completed Delia Harry MD Attn: Accounting,[address] [facility], [place], [place], [address] [place] [address], [place] [facility] 01/20/2022 16:49:09 zoster recombinant 0 completed Delia Harry MD Attn: Accounting,[address] [facility], [place], [address] [place] [address], [place] [facility] 01/20/2022 16:49:09 COVID-19, mRNA, LNP-S, PF, 30 mcg/0.3 mL dose 1 completed Delia Harry MD Attn: Accounting,[address] [facility], [place], [place], [address] [place] [address], [place] [facility] 01/20/2022 16:49:09 COVID-19, mRNA, LNP-S, PF, 30 mcg/0.3 mL dose 1 completed Delia Harry MD Attn: Accounting,[address] [facility], [place], [address] [place] [address], [place] [facility] 01/20/2022 16:49:09 COVID-19, mRNA, LNP-S, PF, 30 mcg/0.3 mL dose 1 completed Delia Harry MD Attn: Accounting,[address] [facility], [place], [address] [place] [address], [facility] 01/20/2022 16:49:09 Influenza, split virus, quadrivalent, preservative 1 completed Delia Harry MD Attn: Accounting,[address] [facility], [place], [address] [place] [address], [facility] 01/20/2022 16:49:09 Pneumococcal conjugate PCV 13 7 completed Not Available [facility] 12/07/2019 02:33:03 Tdap 3 completed Delia Harry MD Attn: Accounting,[address] [facility], [place], [address] [place] [address], [facility] 01/20/2022 16:49:09 pneumococcal polysaccharide PPV23 9 completed Not Available [facility] 12/07/2019 02:38:42 Tdap 5 completed Not Available [facility] 12/07/2019 02:43:45 typhoid, parenteral 8 completed Delia Harry MD Attn: Accounting,[address] [facility], [place], [address] [place] [address], [facility] 01/20/2022 16:49:09 Past Encounters Encounter ID Performer Location Encounter Start Date Encounter Closed Date Diagnosis/Indication Diagnosis SNOMED-CT Code Diagnosis ICD10 Code Diagnosis Note [id number] Virgen Tovar [facility] [address] [place] [phone] 10/27/2014 14:00:52 10/27/2014 15:38:32 Headache [id number] shi's poss r/t sinus--lauren l try to treat as such MMSE normal--di scussed concerns. Watch for increased signs. concern for excess gas--try probiotics or phazyme [id number] Virgen Serna [facility] [address] [place] [address] 07/23/2015 14:22:12 07/23/2015 16:35:05 Abdominal pain 71215914 some of sx seem to be reflux--wi ll treat w/ otc Nexium--sa mples given for 1 wk watch what she eats Constipation 36838285 st art Psyllium daily plus Probiotics cont colase--se e if correcting constipati on makes he feel better consider CT of Abd/pelvis if not better in 2 wks Fatigue 43563772 lab soon--chp and Vit D [id number] Delia Teddy [facility] [address] [place] [address] 11/09/2015 15:12:33 11/09/2015 16:24:15 Adult health examination 182292605 Z00.00 reviewed healthy lifestyle cont reg activity/ good diet Epigastric pain 84642083 R10.13 will check Hpylori back on PPI-- diet as solange [id number] [address] [address] 08/02/2016 15:15:05 08/15/2016 13:13:37 Fatigue 06986440 R53.83 will check lab. reviewed diet. cont Vit B compex. reviewed meds from GI--need notes. [id number] [facility] Teddy [address] [address] 11/29/2016 14:53:52 12/20/2016 16:12:25 Adult health examination 582340552 Z00.00 reviewed healthy lifestyle. discussed issues of memory. discussed balance/di zziness. Balance exercise handout. pt will schedule her awn mamm/bone dens Osteoporosis 02302834 M8 1.0 get bone density Shoulder joint pain 2679 74114 M25.519 reviewed notes from ORTHO--con sidering surg--disc ussed. cont ROM exercises Neuropathy 851357294 G62 .9 try B complex. good supporting shoes Ganglion cyst 37255232 M 67.40 believe lumps in hands are ganglion cysts--jeronimo cts not to do anything right now--will watch [id number] [facility] Teddy [facility] [address] [address] 12/21/2016 09:33:58 01/20/2017 10:32:26 Osteoporosis 58770042 M81.0 reviewed bone density--r eally needs to be treated. info given on Reclast and Prolia--wi ll research them and get back to us. cont Ca++ w/ D Mammography abnormal 168 158952 R92.8 reviewed Mamm--need s Dx on L History of cerebrovascular accident without residual deficits 203124645 Z86.73 reviewed hosp records. she will cont w/ daily asa and statin as solange. s/w reluctant to take but will try to take 3 x wk at least. questions if some of sx were from dehydratio n--make sure she keeps hydrated. has May appt w/ spec. at [place]--wi keep [id number] Marco Granados MD [address] [address] 04/11/2017 09:56:57 04/19/2017 11:06:16 Dizziness 543591057 R42 Check labs. Boost samples. Hand pain 87986643 M79.6 42 Check labs. [id number] Marco Granados MD [address] [address] 04/25/2017 09:53:39 05/01/2017 12:14:10 Hypothyroidism 55352794 E03.9 Hyperlipidemia 69504502 E78.5 Cerebrovas cular accident 761398698 I63.9 Dizziness 572154304 R42 Better with meclizine prn. Osteoarthritis 382123744 M19.90 Taking celebrex once daily, as needed, and helping a lot. Vitamin D deficiency 347 59460 E55.9 Low normal, continue vit d supplement ation, take with beneficial fats like coconut oil to help improve absorption . [id number] Marco Granados MD [address] [address] 08/25/2017 14:03:08 09/04/2017 16:22:50 Cerebrovascular accident 039813119 I63.9 One year in Nov 2017. Hypothyroidism 05520393 E03.9 Hyperlipidemia 27352584 E78.5 Osteoporosis 70871337 M8 1.0 Per DEXA scan done in 12/06, then she had one again in 07/06, shows improvemen t in T scores after being on OTC ca and vit d, continue. Fatigue 14263931 R53.83 Could be manifestat ion of depression , labs all rad normal. Unlikely to be sleep apnea. Will try low dose sertraline to see whether that helps. Lives by self, she never , never had kids. Shoulder pain 25163966 M 25.511 Chronic low back pain 27 9056722 M54.5 [id number] Marco Granados MD [facility] [address] [place] [address] 10/17/2017 10:19:55 10/25/2017 16:04:35 Cerebrovascular accident 529878872 I63.9 One year in Nov 2017. Arthritis 5481097 M19.90 Hypothyroidism 90988246 E03.9 Hyperlipidemia 08435764 E78.5 Osteoporosis 28919289 M8 1.0 Per DEXA scan done in 12/06, then she had one again in 07/06, shows improvemen t in T scores after being on OTC ca and vit d, continue. Depressive disorder 3548 9007 F32.89 Continue sertraline . Synovial c yst of popliteal space 80521198 M71.22 Will try oral steroids, if no help, may need orthopedic referral later. Aphthous u lcer of mouth 114923067 K12.0 [id number] Marco Granados MD [facility] [address] [place] [address] 12/22/2017 15:38:41 12/26/2017 14:40:05 Complaining of - postnasal drip 664251918 R09.82 Eczema 97619094 L30.9 [id number] Delia Harry MD [facility] [address] [place] [address] 05/14/2018 12:03:02 05/15/2018 09:07:40 Hypothyroidism 68048756 E03.9 to have lab check in July and follow up in the beginning of August Adult [facility] examination 748256956 Z00.00 healthy and appropriat e-- risk for CVD with prior stroke History of cerebrovascular accident 137081748 Z86.73 I advised she take ASA 81 mg daily Hyperlipidemia 93556372 E78.5 I advised to decrease the atorvastat in ot M-W- since last lipids were exceptiona l and she is considerin g stopping med since she is opposed to taking meds in principal Chronic hoarseness 62967 78799 105 R49.0 I advised she try the nasal steroid daily for at least a month to treat the hoarseness -- probably related to PND. I did not see PND on exam -- she had seen ENT in the past [id number] Sana saunders [facility] [address] [place] [address] 08/17/2018 09:50:36 08/17/2018 12:50:26 Hypothyroidism 75218877 E03.9 to have lab check in July and follow up in the beginning of August Hyperlipidemia 50335775 E78.5 I advised to decrease the atorvastat in ot -- since last lipids were exceptiona l and she is considerin g stopping med since she is opposed to taking meds in principal Fatigue 55685079 R53.83 [id number] Delia Harry MD [facility] [address] [place] [address] 08/21/2018 10:14:53 08/22/2018 09:44:10 Hypothyroidism 80812965 E03.9 lab reviewed and copy to patient-- stable Hyperlipidemia 90644959 E78.5 I advised to continue the atorvastat in on Degenerati ve joint disease involving multiple joints 835566321 M15.9 consider surgical correction of the right shoulder-- letter for patient to continue with exercise program-- like [place] Senile osteopenia 530749 06 M85.80 wants a letter for exercise program coverage since not covered with her health insurance Total bili lee above reference range [id number] 99197 R17 this is stable for patient-- no further evaluation needed-- likely Gilbert's [id number] Delia Harry MD [facility] [address] [place] [address] 03/05/2019 09:08:10 03/05/2019 13:45:12 Hyperlipidemia 83575017 E78.5 no lipids added since doing well with chol checked at [facility] Abdominal pain 35192219 R10.9 no additional fiber tables and NO DAIRY for one month. You jeramie contin wit the PROBIOTIC and STOOL SOFTNER at this time. Likely IBS. You will call in a month for prescripti on trial of BENTYL if not better wtih dairy eliminatio n Degenerati ve joint disease involving multiple joints 315312358 M15.9 the arthritis lauren likely trigger intermitte nt pain-- stay active and note that inactivity does lead to greater pain and stiffness. Hypothyroidism 76606958 E03.9 lab reviewed and copy to patient-- stable Long-term drug therapy 416547393 Z79.854 [id number] Delia Harry MD [facility] [address] [place] [address] 08/05/2019 12:15:58 08/05/2019 14:53:26 Mass of right breast 3327441618 5780044 N63.10 I recommend a visit with Dr Whyte and to have [id number] Delia Harry MD [facility] [address] [place] [address] 09/03/2019 09:19:54 09/03/2019 11:31:36 Degenerative joint disease involving multiple joints 026677648 M15.9 the arthritis lauren likely trigger intermitte nt pain-- stay active and note that inactivity does lead to greater pain and stiffness. 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 She does not want to start any new medication s and would like to wait til after the surgery to think about therapy. 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 M81.0 I would suggest RECLAST generic-- if affordable from [facility]- let me know Influenza vaccination declined [id number] Z28.21 discussed and refused [id number] Delia Harry MD [facility] [address] [place] [address] 03/11/2020 11:54:30 03/11/2020 14:37:16 Hypothyroidism 64680333 E03.9 lab reviewed form 04/2019 -- stable-- will need retesting then-- unless test done per memory evaluation protocol Poor short -term memory 329309426 R41.3 memory referral per patient request Constipation 10859463 K5 9.00 management discussed and diet likely trigger-- since better through and worse since -- mainstay of treatment- - MIRALAX-- every day-- dose increase to TID until stools are soft / renewal of daily BMs [id number] Delia Harry MD [facility] [address] [place] [address] 03/26/2020 10:44:40 03/27/2020 12:02:04 Photodermatitis due to sun 604302614 L56.2 OK to use HYDROCORTI SONE 1% three times a day-- try this for a week and if not better-- call of see Dermatolog ist if not better. OK to use benedryl pill form-- not cream--at bedtime for itching [id number] Delia Harry MD [facility] [address] [place] [address] 08/17/2020 14:01:37 08/17/2020 18:21:15 Paresthesia of lower extremity 657059949 R20.2 this may be a side effect related to the anastrazol e but the benefit outweighs this as a risk-- I would recommend continuing treatment Degenerati ve joint disease involving multiple joints 906970212 M15.9 Long-term drug therapy 765868340 Z79.899 if the lab testing is negative-- will need to X RAY the areas of pain Hypothyroidism 88109526 E03.9 lab reviewed -- will need retesting tomorrow History of malignant neoplasm of breast 441335235 Z85.3 [id number] [place] [address] [place] [address] 11/09/2020 10:51:32 11/09/2020 15:53:09 Paresthesia of lower extremity 309099049 R20.2 again , this may be a side effect related to the anastrazol e but the benefit outweighs this as a risk-- I would recommend continuing treatmentb 12 and folate normal Dupuytren' s disease of palm 838416613 M72.0 seeing hand surgeon [id number] Delia Harry MD [place] [address] [place] [address] 01/19/2021 09:02:09 01/20/2021 12:00:02 Acute low back pain 115653701 M54.5 I advise to get the XRAYs completed and will make plans pending outcome Pain in ri ght hip joint [id number] 98625 M25.551 xray ordered and patient to pospone any nerve testing until after the xrays-- the feet numbness persists and the testing was not completed in Nov as scheduled originally due to a lost order at [facility]-- if retesting advised-- she wants to have the test done elsewhere [id number] Delia Harry MD [place] [address] [facility] [address] [facility] [address] 04/09/2021 13:29:49 04/12/2021 12:31:11 Acute stress disorder 92792355 F43.0 I offered counseling or retirement and declined-- she agrees to start low dose sertraline and follow up in one month for reassessme nt to see if med change or dose adjustment will be needed [id number] Delia Harry MD [facility] [address] [facility] [address] [place] [address] 04/27/2021 14:21:44 04/28/2021 14:58:42 Long-term drug therapy 430809009 Z79.899 if the lab testing ordered since new start AKIL inhibitor. Will get records from [place] ER visits Acute stress disorder 67 061662 F43.0 I offered counseling or retirement and declined-- she agrees to increase the dose sertraline since still worrying and not herself and troubled with sleeping. She is to follow up in one month for reassessme nt to see if med change or dose adjustment will be needed Benign ess ential hypertension 6125693 I10 no dose change in LISINOPRIL and will re-evaluat e in one week-- will get the reports from the ER [id number] Delia Harry MD [facility] [address] [facility] [address] [facility] [place] [address] 05/20/2021 08:56:53 05/20/2021 16:13:55 Acute stress disorder 03783065 F43.0 she is feeling better and she agrees to taper the dose sertraline -- I advised 25 mg daily for another week ( started taper on 05/12 per patient case)-- and then take 25 mg every other day for 14 days-- then stop. If anxiety increases- - she will contact office to restart sertraline 25 mg daily Hypothyroidism 02278818 E03.9 lab reviewed -- will need retesting tomorrow [id number] Delia Harry MD [facility] [address] [facility] [address] [place] [address] 09/21/2021 10:30:29 09/21/2021 15:49:44 Benign essential hypertension 9474253 I10 dose change in LOSARTAN to 50 mg and will re-evaluat e in two weeks Generalize d anxiety disorder 85050700 F41.1 I advised her to cont taking sertraline for at least 6 weeks to evaluate it's effect on anxiety-- do not stop taking this med-- and take it daily Osteoporosis 93895351 M8 1.0 [facility] plans to stop taking RECLASt-- will need to re-evaluat e with DEXA to reassess bone density ( last check was Oct 2019) [id number] Delia Harry MD [facility] [address] [facility] [address] [place] [address] 10/07/2021 10:47:59 10/08/2021 10:45:26 Acute stress disorder 13640613 F43.0 she is feeling better and she agrees to taper the dose sertraline - now to start sertraline 25 mg daily. Follow up in 3 mo with plan to transition off med if continues to improve with adjustment disorder Benign ess ential hypertension 9431852 I10 advised no dose change in LOSARTAN 50 mg and will re-evaluat e with plan to change in 3 months back to 25 mg daily if BP well controlled -- <150/>90-- goal 130/80. No interest in lowering BP less than 100 systolic Adjustment disorder with anxious mood 69848272 F43.22 she is feeling better and she agrees to taper the dose sertraline - now to start sertraline 25 mg daily. Follow up in 3 mo with plan to transition off med if continues to improve with adjustment disorder [id number] Delia Harry MD [facility] [address] [facility] [place] [place] [address] 01/20/2022 15:38:29 01/21/2022 14:29:02 Essential hypertension 65805301 I10 no change in the dose of the LOSARTAN 100 mg dialy due to max benefit after 14 days of this current dose-- will reassess after co nt to take and record home BP readingsho me monitor was tested today and accuracy was very goodI advised ER follow up with cardiologi st at [place] and I advised Dr Alta Santamaria-- she has name and contact informatio n and prefers to set up appointmen t with cardiologi st herself Hyponatremia 66641977 E8 7.1 follow up from ER sodium of 131 needed Unsteady when walking 22 322996 R26.89 cause not clear---ab le to walk outdoors with her sister for exercise [id number] Delia Harry MD [facility] [address] [facility] [address] 02/15/2022 09:55:49 02/15/2022 17:43:50 Essential hypertension 46560026 I10 cont to take and record home BP readingsco nt with the carvedilol 6.25 mg BID ( instead of cutting dose in 11/21)cont home monitor was tested today and accuracy was very goodget up slowlydrin k plenty of fluidssee cardiologi st as arranged in a week Acute stress disorder 67 750710 F43.0 she is feeling better Follow up in 3 mo with plan to transition off med if continues to improve with adjustment disorder Hyponatremia 48662239 E8 7.1 improving and electrolyt es reviewed [...] 2 [employer] (MEDICARE SUPPLEMENT) PLAN N Vanda Blancas [id number] Vanda Blancas 05/20/2021 2 [place] Vanda Blancas [id number] Vanda Blancas 09/21/2021 2 [employer] (MEDICARE SUPPLEMENT) PLAN N Vanda Blancas [id number] Vanda Blancas 09/21/2021 2 [place] Vanda Blancas [id number] Vandacody Blancas 10/07/2021 2 [employer] (MEDICARE SUPPLEMENT) PLAN N Vanda Blancas [id number] Vanda Blancas 10/07/2021 2 [place] Vanda Blancas [id number] Vandacody Blancas 01/20/2022 2 [place] Vanda Blancas [id number] Vanda Blancas 01/20/2022 1 [facility] (MEDICARE REPLACEMENT/AD VANTAGE - HMO) [id number] Vanda Annie Echevarriaada [id number] Vanda Swathiada 02/15/2022 1 [facility] (MEDICARE REPLACEMENT/AD VANTAGE - HMO) [id number] Vanda Annie Blancas [id number] Vandacody Blancas Notes Date Note Type Note [...] visit. Delia Harry MD Attn: Accounting,[address] [place], [address], [facility] 05/20/2021 13:24:39 1 text/html Hypertension F/UReported bypatient.Associated [...] f/u Delia Harry MD Attn: Accounting,[address] [facility], [place], [address], [facility] 09/21/2021 13:20:02 1 text/html Hypertension F/UReported bypatient.Associated [...] worse Delia Harry MD Attn: Accounting,[address] [place], [address], [facility] 10/07/2021 19:07:54 2 text/html Hypertension F/UReported bypatient.Associated [...] done Delia Harry MD Attn: Accounting,[address] [place], [address], [facility] 01/20/2022 22:51:36 2 text/html Hypertension F/UReported bypatient.Associated Symptoms:no shortness of breath; no edema;dizziness;lighthead edness;chest pain(tightness); pt states that sometimes when standing up she has to move around a little to get stabilized, she will see electronics inspector 02/22/22 Lifestyle:regular exercise; exercises 7 times/week; exercises for 15-20 minutes/day Medications:taking medications as directed;side effects from medications(numbness hand new med); checks blood pressure at home, range:Notes:no answer at 12:15 pmcalled back for appointmentplans to see Dr. Macias next [id number] /70 thinks she is go over test results. Delia Harry MD Attn: Accounting,[address] [place], [address], [facility] 02/15/2022 13:47:36 OBGyn Episode No OBEpisode recorded.
--- OUTSIDE RECORDS SUMMARY | 2025-01-29 16:19 | XMS_ITS | Encounter Summary ---
Author Organization [facility] Address [address] [place] [address] Phone Care Team Providers Care Customs Compliance Manager Name Role Phone Delia Harry MD Primary Care Provider [phone] Everett Arriaga MD Unavailable [phone] Jacey Handley MD Primary Care Provider [phone] Reason for Visit * Reason Comments Medication Refill Encounter Details Date Type Department Care Team (Late st Contact Info) Description 10/21/2021 Refill [facility] [address] [address] Everett Arriaga MD [address] [place] [address] Medication Refill Social History Tobacco Use [...] Everett Arriaga MD - 10/22/2021 10:42 AM NEWS VIDEOTAPE EDITOR Ok to fill VIDEOTAPE EDITOR * Telephone Encounter - Ruperto Olivarez RN - 10/22/2021 10:27 AM CST Refill request from pharmacy. Refill if appropriate. VIDEOTAPE EDITOR documented in this encounter Plan of Treatment Upcoming Encounters Date Type Department Care Team (Late st Contact Info) Description 02/28/2025 10:15 AM CDT Lab [facility] [address] [id number] Lab, [facility] 02/28/2025 11:00 AM CDT Ancillary Procedure [facility] [address] [id number] 02/28/2025 11:30 AM CDT Office Visit [facility] [address] [id number] Everett Arriaga MD [address] [place] [phone] documented as of this encounter Visit Diagnoses Diagnosis 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, estrogen receptor positive (HCC) Other osteoporosis, unspecified pathological fracture presence documented in this encounter Additional Health Concerns Assessment Noted Time PHQ-9 Depression Total Score: 1 01/13/20 21 3:49 PM NEWS VIDEOTAPE EDITOR documented as of this encounter Care Teams Customs Compliance Manager Relationship Specialty Start Date End Date Delia Harry MD [address] [address] PCP - General Family Medicine 08/13/19 08/16/22 [place] [address] PCP - General Internal Medicine 08/18/22 Everett Arriaga MD [address] [place] [address] Consulting Physician Oncology 10/20/20 documented as of this encounter
--- OUTSIDE RECORDS SUMMARY | 2025-01-29 16:19 | XMS_ITS | Encounter Summary ---
Author Organization [facility] Care Team Providers Care Company Accountant Name Role Phone Delia Harry MD Primary Care Provider [phone] Ysabel Winters MD Primary Care Provider [phone] Jacey Handley MD Primary Care Provider [phone] Elijah Palumbo MD Unavailable [phone] Truman Dillon MD Unavailable [phone] Davin Madsen MD Unavailable [phone] Encounter Details Date Type Department Care Team (Latest Contact Info) Description 09/24/2018 Orders Only [facility] ProviderRobert MD [address] [place], [place] [id number] Social History Tobacco Use Types Packs/Day Years Used Date Smoking Tobacco: Never Alcohol Use Standard Drinks/Week Comments Yes 0 (1 standard drink = 0.6 oz pur e alcohol) Comments Unknown Sex and Gender Information Value Date Recorded Sex Assigned at Not on file Legal Sex Female 1:15 AM BURLAP WORKER Gender Identity Female 10/30/2020 9:29 PM BURLAP WORKER Sexual Orientation Straight 10/30/2020 9: 29 PM BURLAP WORKER documented as of this encounter Plan of Treatment Not on file documented as of this encounter Procedures Procedure Name Priority Date/Time Associated Diagnosis Comments PROCEDURE - RESULT 09/24/2018 12 :00 AM BURLAP WORKER documented in this encounter Results * PROCEDURE - RESULT (09/24/2018 12:00 AM BURLAP WORKER) Narrative 09/24/2018 12:00 AM BURLAP WORKER Ordered by an unspecified provider. us Historical Provider Final Res ult documented in this encounter Visit Diagnoses Not on filedocumented in this encounter Care Teams Company Accountant Relationship Specialty Start Date End Date Delia Harry MD [address] [facility] [address] [place] [address] PCP - General 01/18/19 12/06/20 Ysabel Winters MD [address] [facility] [address] [place] [address] PCP - General 12/07/20 12/07/22 Jacey [place] [address] PCP - General Internal Medicine 12/08/22 Elijah Palumbo MD [address] [place] [address] Referring Physician Gastroenterology 07/11/24 Truman Dillon MD [phone] [place] [address] Surgeon Colon and Rectal Surgery 07/23/24 Davin Madsen MD [address] [facility] [address] [place] [address] [employer] Manager Gastroenterology 07/23/24 documented as of this encounter
--- OUTSIDE RECORDS SUMMARY | 2025-01-29 16:19 | XMS_ITS | Clinical Summary ---
Author Organization [facility] Address [address] [place] [address] Care Team Providers Care Utility Plant Operative Name Role Phone Marco Granados MD Primary Care Provider [phone] Source Comments [facility],non-owned Affiliates and Associated Physician Practices is amultiple site organization consisting of ambulatory clinics and hospital sitesin [place], [place], [place] and [place]. This disclosure is being madepursuant to the Care Everywhere program and may not contain all information available regarding this patient. Last updated 18.[facility] Active Problems Problem Noted Date Diagnosed Date [...] to complete this topic MENINGOCOCCAL (Group B) VACC INE SHARED DECISION-MAKING Aged Out No longer eligibl e based on patient's age to complete this topic MENINGOCOCCAL GROUPS A/C/Y/W VACCINE Aged Out No longer eligible b ased on patient's age to complete this topic Care Teams Utility Plant Operative Relationship Specialty Start Date End Date Marco Granados MD [address] [place] [address] PCP - General Internal Medicine 11/23/17
--- OUTSIDE RECORDS SUMMARY | 2025-01-29 16:19 | XMS_ITS | Encounter Summary ---
Author Organization [facility] Address [address] [place] [address] Phone Care Team Providers Care Pediatric Radiologist Name Role Phone Delia Harry MD Primary Care Provider [phone] Ysabel Winters MD Primary Care Provider [phone] Jacey Handley MD Primary Care Provider [phone] Elijah Palumbo MD Unavailable [phone] Truman Dillon MD Unavailable [phone] Davin Madsen MD Unavailable [phone] Encounter Details Date Type Department Care Team (Late st Contact Info) Description 10/24/2019 Orders Only [facility] Gastroenterology [address] [facility] [address] [place] [phone] Lolis Mcallister MD [address] [place] [address] [address] [place] [address] Social History Tobacco Use Types Packs/Day Years Used Date Smoking Tobacco: Never Smokeless Tobacco: Never Alcohol Use Standard Drinks/Week Comments Yes 2 (1 standard drink = 0.6 oz pur e alcohol) Comments No Sex and Gender Information Value Date Recorded Sex Assigned at Not on file Legal Sex Female 1:15 AM LETTERSET PRESS SET UP OPERATOR Gender Identity Female 10/30/2020 9:29 PM LETTERSET PRESS SET UP OPERATOR Sexual Orientation Straight 10/30/2020 9: 29 PM LETTERSET PRESS SET UP OPERATOR documented as of this encounter Plan of Treatment Not on file documented as of this encounter Visit Diagnoses Not on filedocumented in this encounter Care Teams Pediatric Radiologist Relationship Specialty Start Date End Date Delia Harry MD [address] [facility] [address] [place] [address] PCP - General 01/18/19 12/06/20 Ysabel Winters MD [address] [facility] [address] [place] [address] PCP - General 12/07/20 12/07/22 J[place] [address] PCP - General Internal Medicine 12/08/22 Elijah Palumbo MD [address] [place] [address] Referring Physician Gastroenterology 07/11/24 Truman Dillon MD [address] [facility] [phone] [place] [address] Surgeon Colon and Rectal Surgery 07/23/24 Davin Madsen MD [address] [facility] [address] [facility] [address] [place] [address] Surgical Technician Gastroenterology 07/23/24 documented as of this encounter
--- OUTSIDE RECORDS SUMMARY | 2025-01-29 16:19 | XMS_ITS | Patient Health Summary ---
Author Organization [facility] Address [address] [place] [address] Care Team Providers Care Promotional Marketing Agent Name Role Phone Marco Granados MD Primary Care Provider [phone] Note from [facility],non-owned Affiliates and Associated Physician Practices is amultiple site organization consisting of ambulatory clinics and hospital sitesin [place], [place], [place] and [place]. This disclosure is being madepursuant to the Care Everywhere program and may not contain all information available regarding this patient. Last updated 18.[facility] Active Problems Problem Noted Date Diagnosed Date [...] BRAIN METABOLIC EVAL IMAGING (11/23/2017 2:15 PM ATTENDING AMBULATORY CARE) Narrative [facility] - 12/25/2017 10:41 AM ATTENDING AMBULATORY CARE No Dictation. Altaf Hernandez DO NM ORDERABLES [facility] Care Teams Promotional Marketing Agent Relationship Specialty Start Date End Date Marco Granados MD [address] [place] [address] (work) PCP - General Internal Medicine 11/23/17
--- OUTSIDE RECORDS SUMMARY | 2025-01-29 16:19 | XMS_ITS | Encounter Summary ---
Author Organization [facility] Address [address] [place] [address] Phone Care Team Providers Care Area Operations Director Name Role Phone Delia Harry MD Primary Care Provider [phone] Ysabel Winters MD Primary Care Provider [phone] Jacey Handley MD Primary Care Provider [phone] Elijah Palumbo MD Unavailable [phone] Truman Dillon MD Unavailable [phone] Davin Madsen MD Unavailable [phone] Encounter Details Date Type Department Care Team [...] on file Legal Sex Female 1:15 AM INVESTIGATOR UTILITY BILL COMPLAINTS Gender Identity Female 10/30/2020 9:29 PM INVESTIGATOR UTILITY BILL COMPLAINTS Sexual Orientation Straight 10/30/2020 9: 29 PM INVESTIGATOR UTILITY BILL COMPLAINTS documented as of this encounter Plan of Treatment Not on file documented as of this encounter Procedures Procedure Name Priority Date/Time Associated Diagnosis Comments SCAN - RADIOLOGY/IMAGING 10/28/2020 documented in this encounter Results * SCAN - RADIOLOGY/IMAGING (10/28/2020) Anatomical Region Laterality Modality Other us Provider Scanning Final Result documented in this encounter Visit Diagnoses Not on filedocumented in this encounter Care Teams Area Operations Director Relationship Specialty Start Date End Date Delia Harry MD [address] [place] [address] [place] [address] PCP - General 01/18/19 12/06/20 Ysabel Wintres MD [address] [facility] [address] [place] [address] PCP - General 12/07/20 12/07/22 [place] [address] PCP - General Internal Medicine 12/08/22 Elijah Palumbo MD [address] [place] [address] Referring Physician Gastroenterology 07/11/24 Truman Dillon MD [phone] [place] [address] Surgeon Colon and Rectal Surgery 07/23/24 Davin Madsen MD [address] [facility] [address] [place] [address] Private Mortgage Banker Safe Gastroenterology 07/23/24 documented as of this encounter
--- OUTSIDE RECORDS SUMMARY | 2025-01-29 16:19 | XMS_ITS | Clinical Summary ---
Author Organization [facility] Address [address] [place] [address] Care Team Providers Care Piping Drafter Name Role Phone Gen Kirk MD Unavailable [phone] Miguel Angel Tamayo MD Unavailable [phone] Checo Kuhn NP Primary Care Provider [phone] Allergies No known active allergies Medications atorvastatin [...] Department Care Team Description 01/06/2025 3:19 PM HERITAGE CONSULTANT - 01/06/2025 11:59 PM HERITAGE CONSULTANT [facility] [address] [place] [address] Checo Kuhn NP Discharge Disposition: Home or Self Care (Routine Discharge) 01/06/2025 Travel from Last 3 Months Family History Medical History Relation Comments Breast Cancer Sister Relation Status Comments Sister Social History Tobacco Use Types Packs/Day Years Used Date Smoking Tobacco: Never Smokeless Tobacco: Never Comments No Sex and Gender Information Value Date Recorded Sex Assigned at Female 01/06/2025 3:13 PM HERITAGE CONSULTANT Legal Sex Female 7:41 PM CDT Gender [...] [facility] [address] [place] [address] Dora Nunez NP [address] [place], [place] [address] Health Maintenance Due Date Last Done Comments [...] BRAIN WO CON Routine 01/06/2025 3:54 PM HERITAGE CONSULTANT Headache, unspecified Other chronic pain Other amnesia Unspecified dementia, unspecified severity, without behavioral disturbance, psychotic disturbance, mood disturbance, and anxiety ([facility]) BONE DENSITY/DEXA Routine 10/25/2019 1:5 0 PM HERITAGE CONSULTANT Postmenopausal from Last 3 Months or Most Recently Relevant to Health Maintenance Results * MRI BRAIN WO CON (01/06/2025 3:54 PM HERITAGE CONSULTANT) Anatomical Region Laterality Modality Head Magnetic Resonan ce 01/08/2025 5:14 AM HERITAGE CONSULTANT Impressions 01/08/2025 5:16 AM HERITAGE CONSULTANT IMPRESSION: ===== 1. No acute intracranial abnormalities. No MRI findings to explain patient's symptoms. 2. Atrophy and small vessel ischemic disease. 3. Minimal ethmoid mucosal sinus disease Referred By: CHECO KUHN Interpreted By: Cr Sullivan MD, 01/08/2025 5:14 AM Narrative 01/08/2025 5:16 AM HERITAGE CONSULTANT [address] [address] EXAMINATION: MRI brain without contrast. EXAM DATE/TIME: [...] Procedure Note Cr Sullivan MD - 01/08/[address] [address] EXAMINATION: MRI brain without contrast. EXAM DATE/TIME: [...] signal in the visualized cervical cord on [id number]. ===== IMPRESSION: ===== 1. No acute intracranial abnormalities. No MRI findings to explainpatient's symptoms. 2. Atrophy and small vessel ischemic disease. 3. Minimal ethmoid mucosal sinus disease Referred By: CHECO KUHN Interpreted By: Cr Sullivan MD, 01/08/2025 5:14 AM Checo Kuhn PATIENT SCHEDULING COORDINATOR MRI Final Result * BONE DENSITY/DEXA (10/25/2019 1:50 PM HERITAGE CONSULTANT) Anatomical Region Laterality Modality Bone Mammography 10/25/2019 3:00 PM HERITAGE CONSULTANT Impressions 10/25/2019 3:02 PM HERITAGE CONSULTANT Impression: BMD measured at AP lumbar spine at WHO category level of osteoporosis. BMD measured at both total hips and both femoral necks at level of osteopenia. Narrative 10/25/2019 3:02 PM HERITAGE CONSULTANT Examination: DEXA Bone densitometry EXAM DATE: 10/25/2019 [...] Most Recently Relevant to Health Maintenance Insurance [facility] Care Teams Piping Drafter Relationship Specialty Start Date End Date Checo Kuhn NP [address] [place] [id number] PCP - General Nurse Practitioner Family 01/03/25 Gen Kirk MD [place] Kettle Operator INTERVENTIONAL CARDIOLOGY 08/28/19 Miguel Angel Tamayo MD [address] [place] [address] Referring Physician GENERAL SURGERY 08/20/19
[2025-01-29 16:23] LABS: Add Urine Microscopic? YES; Appearance Urine Clear (Clear); Bacteria Urine None Seen /hpf; Bilirubin Urine Negative (Negative); Blood Urine Negative (Negative); Color Urine Yellow (Yellow); Glucose Urine UA Negative (Negative); Ketones Urine Negative (Negative); Leukocyte Esterase Ur 1+ LEU/UL (Negative); Need Manual Microscopic Reviewed; Nitrate Urine Negative (Negative); Non Pathogenic Casts 0-2; Protein Urine Negative (Negative); RBC Urine 0-2 /hpf (0-2); Specific Grav Ur 1.011 (1.001-1.035); Squamous Epithelial Cell Urine None Seen /hpf (Few); Urobilinogen Urine 0.2 mg/dL (<2.0); WBC Urine 0-5 /hpf (0-3); pH Urine 7.5 (5.0-9.0)
--- NOTE | 2025-01-29 17:32 | ED_ITS ---
HPI - General Adult General Chief complaint: Headache Stated complaint: h/a, confusion, difficulty sleeping Time Seen by Provider: 01/29/25 16:31 History of Present Illness HPI narrative: 84-year-old female with history of dementia, GERD, hypothyroidism, prior stroke, TMJ. Patient presents to the ED with a myriad of complaints, seems to be mostly concerned that she is having difficulty sleeping and some increased insomnia after being started on memantine for dementia which her primary care provider diagnosed recently. States she has been having terrible dreams, having bad sleep quality and attributed to the medication. She called her primary care provider and expressed frustration with the medication and was told to get rvqc-[id number]-[id number] sleep supplements. Patient came to the ER as she is not sure what to do regarding her sleep. She denies any current headache, vision changes, nausea, vomiting, abdominal pain, back pain, fever, chills. States that she has been more confused lately which is why her doctor thinks she has dementia based on MRI images recently. Patient denies any acute injury or falls. Recently treated with urinary tract infection started on antibiotics with no urinary symptoms at this time. Related Data Home Medications ?Medication ?Instructions ?Recorded ?Confirmed ?Last Taken ?Type cholecalciferol (vitamin D3) 625 625 mcg PO DAILY 02/22/22 01/24/25 Unknown History mcg (25,000 unit) capsule cyclosporine 0.05 % eye drops in a 1 drp EACH EYE Q12H 02/22/22 01/24/25 Unknown History dropperette (Restasis) levothyroxine 75 mcg capsule 75 mcg PO DAILY 06/13/23 01/24/25 Unknown History bxgjgokpfsqh-qalsrfui-bguppz 1 tablet PO DAILY 06/30/23 01/24/25 Unknown History tablet (Multivitamin 50 Plus tablet) polyethylene glycol 3350 17 17 g PO .PRN 09/12/23 01/24/25 Unknown History gram/dose oral powder (Miralax) omeprazole 40 mg capsule,delayed 40 mg PO DAILY 11/12/24 01/24/25 Unknown History release aspirin 81 mg tablet,delayed 81 mg PO DAILY 01/08/25 01/24/25 Unknown History release buspirone 5 mg tablet 10 mg PO DAILY 01/08/25 01/24/25 Unknown History Allergies Allergy/AdvReac Type Severity Reaction Status Date / Time No Known Allergies Allergy Verified 01/29/25 14:24 Review of Systems 2 Review of Systems: As reviewed above in [facility] Past Medical History Medical History Memory loss Encounter to establish care Headache around the eyes Hypo-osmolality and hyponatremia Epigastric discomfort Abdominal bloating Epigastric pain Nausea Hx of malignant neoplasm of nasal cavity Hx of breast cancer Adrenal insufficiency Hypothyroidism Surgical History Surgical History Hx of hysterectomy History of right shoulder replacement Family History Family History Sibling Breast cancer Social History Social History Smoking status: Never smoker Alcohol intake: current Alcohol use details: occasional Substance use: never Substance use type: does not use Do You Feel Safe in your Home?: Yes Lack of Transportation: No Lack of Food: Never True Current Housing: I Have Housing Concerned About Future Housing: No Difficulty Paying Gas/Electric Bills: No Difficulty Paying for Meds: No Currently Unemployed: No Education: Master's Degree or Higher Difficulty w/ Childcare or Family Care: No Living arrangements: [facility] Gender identity (if verbalized by the patient): Female Spiritual care concerns: No Exam 2 Narrative: GENERAL: [Well-appearing, well-nourished, and in no acute distress.] HEAD: [Normocephalic, atraumatic.] EYES: [PERRLA and EOMI.] ENT: Nares clear, no rhinorrhea or epistaxis. Mucous membranes moist. NECK: Supple. CHEST: [Clear to auscultation. No respiratory distress.] HEART: [Regular rate and rhythm]. No murmur heard. [Normal peripheral pulses.] ABDOMEN: [Soft, nondistended], [nontender], [No rigidity or guarding] EXTREMITIES: Normal range of motion. [No edema.] SKIN: Warm, dry, no rash. NEURO: [No focal deficits]. Alert and oriented [x3.] PSYCH: [Normal mood and affect.] Course Vital Signs Vital signs: Vital Signs Temperature 36.2 C L 01/29/25 14:48 Pulse Rate 88 01/29/25 14:48 Respiratory Rate 18 01/29/25 14:48 Blood Pressure 131/58 L 01/29/25 14:48 Pulse Oximetry 99 01/29/25 14:48 Oxygen Delivery Room Air 01/29/25 14:48 Temperature 36.9 C 01/29/25 15:56 Pulse Rate 80 01/29/25 18:13 Respiratory Rate 18 01/29/25 18:13 Blood Pressure 150/68 H 01/29/25 18:13 Pulse Oximetry 100 01/29/25 18:13 Oxygen Delivery Room Air 01/29/25 14:48 Medical Decision Making MDM Narrative Medical decision making narrative: 84-year-old female with history of dementia, hypothyroidism, hypertension, prior stroke, TMJ. She presents with multiple complaints but seems to be fixated on her not having enough sleep these last few days after recently start memantine for dementia. Patient expresses frustration with her primary care provider and stop taking her maintain yesterday and she thinks that is causing her not have any sleep. Recently treated for UTI with antibiotics but denies any symptoms of dysuria at this time. No headache vision changes, fever, chills, abdominal pain, back pain, nausea, vomiting, weakness. Patient herself is not any acute distress and very well-appearing with normal vital signs. No hypertension, tachycardia, fever or hypoxia. I discussed with the patient that clinically she does not appear to be having any acute urgent or emergent concerns and her medication is likely causing her insomnia. Blood work was obtained in triage with patient does not wish to have any other workup and is expressing desire for something to help her sleep instead. Blood work obtained that shows no leukocytosis or anemia. No signs of urinary tract infection. Normal platelet count. Normal electrolyte profile, stable hyponatremia which is better than baseline. Normal kidney function, normal glucose and LFTs. EKG obtained shows normal sinus rhythm, no signs of ectopy or ischemia. I initially did order a head CT based on patient's history but she declined this and wished to go home at this time. Patient expressed desire for something to help her sleep. Given her age and risk factors I felt uncomfortable prescribing any kind of zolpidem or hypnotic agent to help her sleep and she has already tried melatonin without help. So we settled on prescribing her Atarax PRN QHS and referred her back to her primary care provider for recommendations and medication titration. Patient expressed understanding and will follow up with her doctor tomorrow. Medical Records Medical records reviewed: Yes I reviewed the external patient's medical records. Vital Signs Vital Signs: Vital Signs Temperature 36.2 C L 01/29/25 14:48 Pulse Rate 88 01/29/25 14:48 Respiratory Rate 18 01/29/25 14:48 Blood Pressure 131/58 L 01/29/25 14:48 Pulse Oximetry 99 01/29/25 14:48 Oxygen Delivery Room Air 01/29/25 14:48 Temperature 36.9 C 01/29/25 15:56 Pulse Rate 80 01/29/25 18:13 Respiratory Rate 18 01/29/25 18:13 Blood Pressure 150/68 H 01/29/25 18:13 Pulse Oximetry 100 01/29/25 18:13 Oxygen Delivery Room Air 01/29/25 14:48 Lab Data Lab results reviewed: Yes I reviewed the patient's lab results. 01/29/25 15:35 01/29/25 15:35 Labs: Lab Results 01/29/25 01/29/25 Range/Units 15:35 16:02 WBC 5.4 (4.5-10.0) K/mm3 RBC 4.43 (4.2-5.4) M/mm3 Hgb 13.4 (12.0-15.0) g/dL Hct 39.8 (37.0-47.0) % MCV 89.8 (80-100) fl MCH 30.2 (26-34) pg MCHC 33.7 (32-36) g/dl RDW 13.5 (11.5-14.5) % Plt Count 297 (150-375) k/mm3 MPV 7.7 (7.4-10.4) fl Immature Gran % (Auto) 0.4 (0-0.5) % Neut % (Auto) 60.1 (45.5-73.1) % Lymph % (Auto) 26.0 (18.3-44.2) % [place] % (Auto) 12.0 H (2.6-8.5) % Eos % (Auto) 0.4 (0-4.4) % Baso % (Auto) 1.1 (0.2-1.2) % Lymph # (Auto) 1.41 (0.9-3.2) K/mm3 [place] # (Auto) 0.7 H (0.1-0.6) K/mm3 Eos # (Auto) 0.0 (0-0.3) K/mm3 Baso # (Auto) 0.1 (0.0-0.1) K/mm3 Abs Immat Gran (auto) 0.02 (0.00-0.031) K/mm3 Absolute Neuts (auto) 3.3 (1.3-6.7) K/mm3 Absolute Nucleated RBC 0.000 (0.0-0.012) K/mm3 Nucleated RBC % 0.0 (0.0-0.2) % PT 12.7 (11.1-14.7) Seconds INR 0.9 APTT 24.7 (22.3-36.8) Seconds Sodium 133 L (137-145) mmol/L Potassium 4.1 (3.4-5.0) mmol/L Chloride 95 L (98-107) mmol/L Carbon Dioxide 29 (22-30) mmol/L Anion Gap 9 (4-12) mmol/L BUN 11 (7-17) mg/dL Creatinine 0.94 (0.7-1.0) mg/dL Estim Creat Clear Calc 31 ml/min Estimated GFR 57 L (59 - ) Glucose 145 H (65-110) mg/dL Calcium 10.0 (8.4-10.2) mg/dL Total Bilirubin 0.8 (0.2-1.3) mg/dL AST 28 (14-36) U/L ALT 22 (6-35) U/L Alkaline Phosphatase 59 (38-126) U/L Total Protein 7.0 (6.3-8.2) g/dL Albumin 4.7 (3.5-5.1) g/dL Urine Color Yellow (Yellow) Urine Appearance Clear (Clear) Urine pH 7.5 (5.0-9.0) Ur Specific [place] 1.011 (1.001-1.035) Urine Protein Negative (Negative) mg/dL Urine Glucose (UA) Negative (Negative) mg/dL Urine Ketones Negative (Negative) mg/dL Ur Blood (Man) Negative (Negative) Urine Nitrate Negative (Negative) Urine Bilirubin Negative (Negative) Urine Urobilinogen 0.2 (<2.0) mg/dL Add Ur Microanalysis Reviewed Leukocyte Esterase Rfl 1+ H (Negative) DULCE/UL Urine RBC 0-2 (0-2) /hpf Urine WBC 0-5 (0-3) /hpf Ur Squamous Epith Cells None seen (Few) /hpf Urine Bacteria None seen /hpf Urine Casts 0-2 Discharge Plan Discharge Clinical Impression: Insomnia, History of dementia Patient Disposition: Home, Self-Care Condition: Stable Instructions: Antibiotic Form, Insomnia (ED) Additional Instructions: Your laboratory studies and workup here are unremarkable. We will send you home with the medication that can help you sleep and only take this at night. You might benefit from your primary care provider changing your medications such as stopping her memantine if it is causing the symptoms. Follow-up with your doctor, return with any new concerns. Patient Language: Georgian Prescriptions: New hydroxyzine HCl 10 mg tablet 10 mg PO QHS PRN (Reason: insomnia) Qty: 30 0RF No Action buspirone 5 mg tablet 10 mg PO DAILY levothyroxine 75 mcg capsule 75 mcg PO DAILY polyethylene glycol 3350 [Miralax] 17 gram/dose powder 17 g PO .PRN linaclotide 72 mcg capsule 72 mcg capsule 0RF aspirin 81 mg tablet,delayed release (DR/EC) 81 mg PO DAILY memantine [Namenda] 5 mg tablet 5 mg PO QAM Qty: 30 0RF tizanidine 2 mg tablet 2 mg PO TID PRN (Reason: jaw pain) Qty: 90 0RF cholecalciferol (vitamin D3) 625 mcg (25,000 unit) capsule 625 mcg PO DAILY cyclosporine [Restasis] 0.05 % dropperette 1 drp EACH EYE Q12H omeprazole 40 mg capsule,delayed release(DR/EC) 40 mg PO DAILY Multivitamin 50 Plus Tablet 1 tablet PO DAILY acetaminophen 500 mg tablet 1,000 mg PO TID PRN (Reason: kerri) 7 Days Qty: 42 0RF losartan 100 mg tablet 100 mg PO DAILY Qty: 30 5RF amlodipine [Norvasc] 5 mg tablet 5 mg PO DAILY Qty: 30 5RF amoxicillin-pot clavulanate 500-125 mg tablet 1 tablet PO Q12H Qty: 10 0RF Rx Instructions: please call patient and let her know when ready and that this is to treat a bladder infection. sulfamethoxazole-trimethoprim [Bactrim DS] 800-160 mg tablet 1 tablet PO Q12H Qty: 10 0RF Rx Instructions: ask pt to hold her losartan while on this. Follow-up/Referrals: Ngoc Leach APRN [Primary Care Provider] - Time of Disposition: 17:46
--- OUTSIDE RECORDS SUMMARY | 2025-01-29 18:11 | XMS_ITS | Clinical Summary ---
Author Organization [facility] Address [address] [place] [address] Care Team Providers Care Engine Repairer Production Name Role Phone Gen Kirk MD Unavailable [phone] Miguel Angel Tamayo MD Unavailable [phone] Checo Kuhn NP Primary Care Provider [phone] Allergies No known active allergies Medications atorvastatin [...] Department Care Team Description 01/06/2025 3:19 PM SOFTBALL UMPIRE - 01/06/2025 11:59 PM SOFTBALL UMPIRE Hospital Encounter [facility] [address] [place] [address] Checo Kuhn NP Discharge Disposition: Home or Self Care (Routine Discharge) 01/06/2025 Travel from Last 3 Months Family History Medical History Relation Comments Breast Cancer Sister Relation Status Comments Sister Social History Tobacco Use Types Packs/Day Years Used Date Smoking Tobacco: Never Smokeless Tobacco: Never Comments No Sex and Gender Information Value Date Recorded Sex Assigned at Female 01/06/2025 3:13 PM SOFTBALL UMPIRE Legal Sex Female 7:41 PM CDT Gender [...] [facility] [place] [address] Dora Nunez NP [address] [place], [place] [address] Health Maintenance Due Date Last Done Comments [...] BRAIN WO CON Routine 01/06/2025 3:54 PM SOFTBALL UMPIRE Headache, unspecified Other chronic pain Other amnesia Unspecified dementia, unspecified severity, without behavioral disturbance, psychotic disturbance, mood disturbance, and anxiety ([facility]) BONE DENSITY/DEXA Routine 10/25/2019 1:5 0 PM SOFTBALL UMPIRE Postmenopausal from Last 3 Months or Most Recently Relevant to Health Maintenance Results * MRI BRAIN WO CON (01/06/2025 3:54 PM SOFTBALL UMPIRE) Anatomical Region Laterality Modality Head Magnetic Resonan ce 01/08/2025 5:14 AM SOFTBALL UMPIRE Impressions 01/08/2025 5:16 AM SOFTBALL UMPIRE IMPRESSION: ===== 1. No acute intracranial abnormalities. No MRI findings to explain patient's symptoms. 2. Atrophy and small vessel ischemic disease. 3. Minimal ethmoid mucosal sinus disease Referred By: CHECO KUHN Interpreted By: Cr Sullivan MD, 01/08/2025 5:14 AM Narrative 01/08/2025 5:16 AM SOFTBALL UMPIRE [address] [address] EXAMINATION: MRI brain without contrast. EXAM DATE/TIME: [...] Procedure Note Cr Sullivan MD - 01/08/[address] [address] EXAMINATION: MRI brain without contrast. EXAM DATE/TIME: [...] signal in the visualized cervical cord on [id number]. ===== IMPRESSION: ===== 1. No acute intracranial abnormalities. No MRI findings to explainpatient's symptoms. 2. Atrophy and small vessel ischemic disease. 3. Minimal ethmoid mucosal sinus disease Referred By: CHECO KUHN Interpreted By: Cr Sullivan MD, 01/08/2025 5:14 AM Checo Kuhn MEDICAL SOCIOLOGIST MRI Final Result * BONE DENSITY/DEXA (10/25/2019 1:50 PM SOFTBALL UMPIRE) Anatomical Region Laterality Modality Bone Mammography 10/25/2019 3:00 PM SOFTBALL UMPIRE Impressions 10/25/2019 3:02 PM SOFTBALL UMPIRE Impression: BMD measured at AP lumbar spine at WHO category level of osteoporosis. BMD measured at both total hips and both femoral necks at level of osteopenia. Narrative 10/25/2019 3:02 PM SOFTBALL UMPIRE Examination: DEXA Bone densitometry EXAM DATE: 10/25/2019 [...] Most Recently Relevant to Health Maintenance Insurance [facility] Care Teams Engine Repairer Production Relationship Specialty Start Date End Date Checo Kuhn NP [address] [place] [id number] PCP - General Nurse Practitioner Family 01/03/25 Gen Kirk MD [place] Food Tray Assembler INTERVENTIONAL CARDIOLOGY 08/28/19 Miguel Angel Tamayo MD [address] [place] [address] Referring Physician GENERAL SURGERY 08/20/19
--- OUTSIDE RECORDS SUMMARY | 2025-01-29 18:11 | XMS_ITS | Referral Summary ---
Author Organization [facility]] [facility] Address [address] [place] [address] Care Team Providers Care Electric Solderer Name Role Phone Jacey Handley MD Primary Care Provider [phone] Elijah Palumbo MD Unavailable [phone] Truamn Dillon MD Unavailable [phone] Davin Madsen MD Unavailable [phone] Allergies Active Allergy Reactions Criticality Noted [...] (KENALOG) 0.1 % cream 1 Active zoledronic gctb-uegkeiwU-z ater (RECLAST) 5 mg/100 mL piggyback 2 [...] (07/16/2019): Added automatically from request for surgery [id number] 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 Stiffness of shoulder [...] on file Legal Sex Female 1:15 AM DISHWASHING MACHINE REPAIRER Gender Identity Female 10/30/2020 9:29 PM DISHWASHING MACHINE REPAIRER Sexual Orientation Straight 10/30/2020 9: 29 PM DISHWASHING MACHINE REPAIRER Last Filed Vital Signs Vital Sign Reading [...] on file Medical Devices Implanted Type Area Metal Burrer Device Identifier Shelf Expiration Date Model / Serial / Lot Shoulder Replacement Right: Shoulder Procedures Procedure Name Priority Date/Time Associated Diagnosis Comments DEXA TBS AXIAL SKELETON BONE DENSITY 1 OR MORE SITES Schedule Routine, Read Routine (OP Routine) 01/01/2024 12:40 PM DISHWASHING MACHINE REPAIRER Osteoporosis, unspecified osteoporosis type, unspecified pathological fracture presence from Last 3 Months or Most Recently Relevant to Health Maintenance Results * Dexa TBS Axial Skeleton Bone Density 1 or more sites (01/01/2024 12:40 PM DISHWASHING MACHINE REPAIRER) Anatomical Region Laterality Modality Wrist, Body N/A Radiographic Daksha ging Narrative 01/03/2024 11:35 AM DISHWASHING MACHINE REPAIRER Patient Name: Rey Blancas Date of : 1940 Date of scan: 01/01/2024 Bone mineral density was performed on a [employer] Discovery Densitometer. Based on machine cross-calibration and [...] by the International Society of Clinical Densitometry. [id number] Ayo Julien MD IMG DXA PROCEDURES Final Result from Last 3 Months or Most Recently Relevant to Health Maintenance Insurance [employer] [facility] MEDICARE Address: [facility] [address] [place] [address] MEDICARE SOLUTIONS MEDICARE SOLUTIONS Advance Directives For more information, please contact: [phone] Documents on File Type Date Recorded Patient Chaplain Resident Expl anation ADVANCE DIRECTIVE 10/02/2018 12:00 AM [facility] [employer] ENGINEER FINANCIAL/MEDICAL * Full Code (Latest Code Status on File) Date Activated Date Inactivated Comments 07/19/2019 10:55 AM 07/19/2019 6:45 PM Care Teams Electric Solderer Relationship Specialty Start Date End Date Jacey Handley MD [address] [facility] [place] [address] PCP - General Internal Medicine 12/08/22 Elijah Palumbo MD [address] [place] [address] Referring Physician Gastroenterology 07/11/24 Truman Dillon MD [id number] [place] [address] Surgeon Colon and Rectal Surgery 07/23/24 Davin Madsen MD [address] [place] [address] Mobile Development Manager Gastroenterology 07/23/24
--- OUTSIDE RECORDS SUMMARY | 2025-01-29 18:11 | XMS_ITS | Encounter Summary ---
Author Organization [facility] Address [address] [place] [address] Phone Care Team Providers Care Fiscal Services Manager Name Role Phone Everett Arriaga MD Unavailable [phone] Jacey Handley MD Primary Care Provider [phone] Reason for Visit * Reason Onset Date Comments Canopy Call 08/09/2024 Encounter Details Date Type Department Care Team (Late st Contact Info) Description 08/09/2024 Telephone [facility] [address] [place] [address] Everett Arriaga MD [address] [place] [address] Canopy Call Social History Tobacco [...] Arriaga MD Blunk, Jennifer A., RMA; Cc [facility] Nurse Pool3 hours ago (8:40 AM) MW [...] AM CDT Lab [facility] [address] [address] Lab, [facility] 02/28/2025 11:00 AM CDT Ancillary Procedure [facility] [address] [phone] 02/28/2025 11:30 AM CDT Office Visit [facility] [address] [address] Everett Arriaga MD [address] [place] [address] documented as of this encounter Results * (ABNORMAL) CMP (COMPREHENSIVE METABOLIC PANEL) (08/30/2024 9:25 AM CDT) Glucose 97 70 - 105 mg/dL [facility] Blood Urea Nitrogen 9 7 - 25 mg/dL [facility] Creatinine 0.7 0.6 - 1.2 mg/dL [facility] Sodium 129(L) 136 - 145 mEq/L [facility] Potassium 4.8 3.5 - 5.1 mEq/L [facility] Chloride 90(L) 98 - 107 mEq/L [facility] Bicarbonate 30 21 - 31 mEq/L [facility] Total Bilirubin 1.2(H) 0.3 - 1.0 mg/dL [facility] Alk. Phosphatase 58 34 - 104 U/L [facility] Aspartate Aminotransferase 22 13 - 39 U/L [facility] Alanine Aminotransferase 12 7 - 52 U/L [facility] Total Protein 7.0 6.4 - 8.9 g/dL [facility] Albumin 4.5 3.5 - 5.7 g/dL [facility] Calcium 10.0 8.6 - 10.3 mg/dL [facility] Anion Gap 13.8 7.0 - 15.0 mEq/L [facility] Globulin 2.5 2.0 - 3.5 g/dL [facility] ROSWELLCOOKY MACHINE OPERATOR [facility] EGFR 85 >60 ml/min/1. 73m2 CANCER COOKY MACHINE OPERATOR [facility] Comment: This eGFR is calculated using 2020 CKD-EPI Creatinine equation without race modifier based on the NKF-ASN task force recommendations Blood 08/30/2024 9:25 AM CDT Narrative CANCER COOKY MACHINE OPERATOR [facility] - 08/30/2024 11:54 AM CDT Release to patient->Immediate IS THE PATIENT REQUIRED TO BE FASTING FOR 8 HOURS?->No us Everett Arriaga MD CHEMISTRY ORDERABLES Final Result CANCER COOKY MACHINE OPERATOR [facility] [place] [address], documented in this encounter Visit Diagnoses Diagnosis 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, estrogen receptor positive (HCC)- Primary 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, estrogen receptor positive (HCC) documented in this encounter Additional Health Concerns Assessment Noted Time PHQ-9 Depression Total Score: 1 01/13/20 21 3:49 PM SHEET METAL PATTERN CUTTER documented as of this encounter Care Teams Fiscal Services Manager Relationship Specialty Start Date End Date Jacey Handley MD [address] [place] [address] PCP - General Internal Medicine 08/18/22 Everett Arriaga MD [address] [place] [phone] Consulting Physician Oncology 10/20/20 documented as of this encounter
--- OUTSIDE RECORDS SUMMARY | 2025-01-29 18:11 | XMS_ITS | Encounter Summary ---
Author Organization [facility] Address [address] [place] [address] Phone Care Team Providers Care Bike Designer Name Role Phone Delia Harry MD Primary Care Provider [phone] Everett Arriaga MD Unavailable [phone] Jacey Handley MD Primary Care Provider [phone] Reason for Visit * Reason Comments Medication Refill Encounter Details Date Type Department Care Team (Late st Contact Info) Description 10/21/2021 Refill [facility] [address] [address] Everett Arriaga MD [address] [place] [address] Medication Refill Social History Tobacco Use [...] Everett Arriaga MD - 10/22/2021 10:42 AM BAR ATTENDANT Ok to fill ATTENDANT * Telephone Encounter - Ruperto Olivarez RN - 10/22/2021 10:27 AM CST Refill request from pharmacy. Refill if appropriate. 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, estrogen receptor positive (HCC) Other osteoporosis, unspecified pathological fracture presence documented in this encounter Additional Health Concerns Assessment Noted Time PHQ-9 Depression Total Score: 1 01/13/20 21 3:49 PM BAR ATTENDANT documented as of this encounter Care Teams Bike Designer Relationship Specialty Start Date End Date Delia Harry MD [address] [address] PCP - General Family Medicine 08/13/19 08/16/22 [place] [address] PCP - General Internal Medicine 08/18/22 Everett Arriaga MD [address] [place] [address] Consulting Physician Oncology 10/20/20 documented as of this encounter
--- OUTSIDE RECORDS SUMMARY | 2025-01-29 18:11 | XMS_ITS | Clinical Summary ---
Author Organization [facility] Address [address] [place] [address] Phone Care Team Providers Care Installation And Service Technician Name Role Phone Jacey Handley MD Primary Care Provider [phone] Allergies No known active allergies Medications Medication [...] Comments Blood Pressure 128/70 11/09/2022 8:47 AM MICROBIOLOGY SOIL SCIENTIST Pulse 72 11/09/2022 8:47 AM MICROBIOLOGY SOIL SCIENTIST Temperature 35.3 C (95.5 F) 11/09/2022 8:47 AM MICROBIOLOGY SOIL SCIENTIST Respiratory Rate - - Oxygen Saturation - - Inhaled Oxygen Concentration - - Weight 50.3 kg (111 lb) 11/09/2022 8:47 AM MICROBIOLOGY SOIL SCIENTIST Height 165.1 cm (5' 5 ) 11/09/2022 8:47 AM MICROBIOLOGY SOIL SCIENTIST Body Mass Index 18.47 11/09/2022 8:47 AM MICROBIOLOGY SOIL SCIENTIST Plan of Treatment Health Maintenance Due Date Last Done Comments COVID-19 Vaccine ( season) 2024 09/01/2021, 01/15/2021, 12/25/2020 Influenza Vaccine (#1) 2024 09/03/2022 Pneumococcal PPSV23/PCV13 65 + Years / High and Highest Risk Completed 09/03/2019, 11/29/2016 Care Teams Installation And Service Technician Relationship Specialty Start Date End Date Jacey Handley MD [address] [place] [address] PCP - General Internal Medicine 10/10/22
--- OUTSIDE RECORDS SUMMARY | 2025-01-29 18:11 | XMS_ITS | Clinical Summary ---
Author Organization [facility] Address [address] [place] [address] Care Team Providers Care Deputy Head Name Role Phone Marco Granados MD Primary Care Provider [phone] Source Comments [facility],non-owned Affiliates and Associated Physician Practices is amultiple site organization consisting of ambulatory clinics and hospital sitesin [place], [place], [place] and [place]. This disclosure is being madepursuant to the Care Everywhere program and may not contain all information available regarding this patient. Last updated 18.[facility] Active Problems Problem Noted Date [...] age to complete this topic Care Teams Deputy Head Relationship Specialty Start Date End Date Marco Granados MD [address] [place] [address] PCP - General Internal Medicine 11/23/17
--- OUTSIDE RECORDS SUMMARY | 2025-01-29 18:11 | XMS_ITS | Encounter Summary ---
Author Organization [facility] Care Team Providers Care Administration Vice President Name Role Phone eDlia Harry MD Primary Care Provider [phone] Ysabel Winters MD Primary Care Provider [phone] Jacey Handley MD Primary Care Provider [phone] Elijah Palumbo MD Unavailable [phone] Truman Dillon MD Unavailable [phone] Davin Madsen MD Unavailable [phone] Encounter Details Date Type Department Care Team (Latest Contact Info) Description 09/24/2018 Orders Only [facility] ProviderRobert MD [address] [place], [place] [id number] Social History Tobacco Use Types Packs/Day Years Used Date Smoking Tobacco: Never Alcohol Use Standard Drinks/Week Comments Yes 0 (1 standard drink = 0.6 oz pur e alcohol) Comments Unknown Sex and Gender Information Value Date Recorded Sex Assigned at Not on file Legal Sex Female 1:15 AM STRAP MACHINE OPERATOR Gender Identity Female 10/30/2020 9:29 PM STRAP MACHINE OPERATOR Sexual Orientation Straight 10/30/2020 9: 29 PM STRAP MACHINE OPERATOR documented as of this encounter Plan of Treatment Not on file documented as of this encounter Procedures Procedure Name Priority Date/Time Associated Diagnosis Comments PROCEDURE - RESULT 09/24/2018 12 :00 AM STRAP MACHINE OPERATOR documented in this encounter Results * PROCEDURE - RESULT (09/24/2018 12:00 AM STRAP MACHINE OPERATOR) Narrative 09/24/2018 12:00 AM STRAP MACHINE OPERATOR Ordered by an unspecified provider. us Historical Provider Final Res ult documented in this encounter Visit Diagnoses Not on filedocumented in this encounter Care Teams Administration Vice President Relationship Specialty Start Date End Date Delia Harry MD [address] [facility] [address] [place] [address] PCP - General 01/18/19 12/06/20 Ysabel Winters MD [address] [facility] [address] [place] [address] PCP - General 12/07/20 12/07/22 [place] [address] PCP - General Internal Medicine 12/08/22 Elijah Palumbo MD [address] [place] [address] Referring Physician Gastroenterology 07/11/24 Truman Dillon MD [phone] [place] [address] Surgeon Colon and Rectal Surgery 07/23/24 Davin Madsen MD [address] [facility] [address] [place] [address] Pecan Gatherer Gastroenterology 07/23/24 documented as of this encounter
--- OUTSIDE RECORDS SUMMARY | 2025-01-29 18:11 | XMS_ITS | Encounter Summary ---
Author Organization [facility] Address [address] [place] [address] Phone Care Team Providers Care Ict Sales Assistant Name Role Phone Delia Harry MD Primary Care Provider [phone] Ysabel Winters MD Primary Care Provider [phone] Jacey Handley MD Primary Care Provider [phone] Elijah Palumbo MD Unavailable [phone] Truman Dillon MD Unavailable [phone] Davin Madsen MD Unavailable [phone] Encounter Details Date Type Department Care Team (Late st Contact Info) Description 10/24/2019 Orders Only [facility] Gastroenterology [address] [facility] Office Building [address] [place] [phone] Lolis Mcallister MD [address] [place] [address] [address] [place] [address] Social History Tobacco Use Types Packs/Day Years Used Date Smoking Tobacco: Never Smokeless Tobacco: Never Alcohol Use Standard Drinks/Week Comments Yes 2 (1 standard drink = 0.6 oz pur e alcohol) Comments No Sex and Gender Information Value Date Recorded Sex Assigned at Not on file Legal Sex Female 1:15 AM ENVIRONMENTAL ECONOMIST Gender Identity Female 10/30/2020 9:29 PM ENVIRONMENTAL ECONOMIST Sexual Orientation Straight 10/30/2020 9: 29 PM ENVIRONMENTAL ECONOMIST documented as of this encounter Plan of Treatment Not on file documented as of this encounter Visit Diagnoses Not on filedocumented in this encounter Care Teams Ict Sales Assistant Relationship Specialty Start Date End Date Delia Harry MD [address] [facility] [address] [place] [address] PCP - General 01/18/19 12/06/20 Ysabel Winters MD [address] [facility] [address] [place] [address] PCP - General 12/07/20 12/07/22 Jacey Handley [place] [address] PCP - General Internal Medicine 12/08/22 Elijah Palumbo MD [address] [place] [address] Referring Physician Gastroenterology 07/11/24 Truman Dillon MD [address] [facility] [phone] [place] [address] Surgeon Colon and Rectal Surgery 07/23/24 Davin Madsen MD [address] [facility] [address] [facility] [address] [place] [address] Pug Machine Operator Gastroenterology 07/23/24 documented as of this encounter
--- OUTSIDE RECORDS SUMMARY | 2025-01-29 18:11 | XMS_ITS | Encounter Summary ---
Author Organization [facility] Address [address] [place] [address] Phone Care Team Providers Care Bow Maker Name Role Phone Delia Harry MD Primary Care Provider [phone] Everett Arriaga MD Unavailable [phone] Jacey Handley MD Primary Care Provider [phone] Reason for Visit * Reason Comments Medication Refill Encounter Details Date Type Department Care Team (Late st Contact Info) Description 07/17/2022 Refill [facility] [place] [address] [place] [address] Everett Arriaga MD [address] [place] [address] Medication Refill Social History Tobacco Use [...] * Telephone Encounter - Emma Thacker, KELSEY, FILM BOOKER - 07/18/2022 10:20 AM CDT Okay to refill. * Telephone Encounter - Christiana Sheppard RN - 07/18/2022 8:03 AM CDT Refill request from pharmacy Last filled 10/22/2021 #[id number] R-[id number] Please fill if appropriate documented in this encounter Plan of Treatment Upcoming Encounters Date Type Department Care Team (Late st Contact Info) Description 02/28/2025 10:15 AM CDT Lab [facility] [address] [phone] Lab, Cc [facility] 02/28/2025 11:00 AM CDT Ancillary Procedure [facility] [address] [phone] 02/28/2025 11:30 AM CDT Office Visit [facility] [address] [phone] Everett Arriaga MD [address] [place] [phone] documented as of this encounter Visit Diagnoses Diagnosis 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, estrogen receptor positive (HCC) Other osteoporosis, unspecified pathological fracture presence documented in this encounter Additional Health Concerns Assessment Noted Time PHQ-9 Depression Total Score: 1 01/13/20 21 3:49 PM MERCHANDISER documented as of this encounter Care Teams Bow Maker Relationship Specialty Start Date End Date Delia Harry MD [address] [address] PCP - General Family Medicine 08/13/19 08/16/22 Jacey Handley MD [address] [place] [address] PCP - General Internal Medicine 08/18/22 Everett Arriaga MD [address] [place] [phone] Consulting Physician Oncology 10/20/20 documented as of this encounter
--- OUTSIDE RECORDS SUMMARY | 2025-01-29 18:11 | XMS_ITS | Encounter Summary ---
Author Organization [facility] Address [address] [place] [address] Phone Care Team Providers Care Webbing Seamer Pound Net Name Role Phone Delia Harry MD Primary Care Provider [phone] Ysabel Winters MD Primary Care Provider [phone] Jacey Handley MD Primary Care Provider [phone] Elijah Palumbo MD Unavailable [phone] Truman Dillon MD Unavailable [phone] Davin Madsen MD Unavailable [phone] Encounter Details Date Type Department Care Team [...] on file Legal Sex Female 1:15 AM FORKLIFT MECHANIC Gender Identity Female 10/30/2020 9:29 PM FORKLIFT MECHANIC Sexual Orientation Straight 10/30/2020 9: 29 PM FORKLIFT MECHANIC documented as of this encounter Plan of Treatment Not on file documented as of this encounter Procedures Procedure Name Priority Date/Time Associated Diagnosis Comments SCAN - RADIOLOGY/IMAGING 10/28/2020 documented in this encounter Results * SCAN - RADIOLOGY/IMAGING (10/28/2020) Anatomical Region Laterality Modality Other us Provider Scanning Final Result documented in this encounter Visit Diagnoses Not on filedocumented in this encounter Care Teams Webbing Seamer Pound Net Relationship Specialty Start Date End Date Delia Harry MD [address] [facility] [address] [place] [address] PCP - General 01/18/19 12/06/20 Ysabel Winters MD [address] [facility] [address] [place] [address] PCP - General 12/07/20 12/07/22 [place] [address] PCP - General Internal Medicine 12/08/22 Elijah Palumbo MD [address] [place] [address] Referring Physician Gastroenterology 07/11/24 Truman Dillon MD [phone] [place] [address] Surgeon Colon and Rectal Surgery 07/23/24 Davin Madsen MD [address] [facility] [address] [place] [address] Kaiawhina Kohanga Reo Gastroenterology 07/23/24 documented as of this encounter
--- OUTSIDE RECORDS SUMMARY | 2025-01-29 18:11 | XMS_ITS | Encounter Summary ---
Author Organization [facility] Address [address] [place] [address] Phone Care Team Providers Care Lamp Cleaner Name Role Phone Everett Arriaga MD Unavailable Jacey Handley MD Primary Care Provider [phone] Encounter Details Date Type Department Care Team (Late Contact Info) Description 08/12/2024 Telephone [facility] [address] [address] Everett Arriaga MD [address] [place] [address] Social History Tobacco Use Types Packs/Day [...] AM CDT Lab [facility] [address] [address] Lab, [facility] 02/28/2025 11:00 AM CDT Ancillary Procedure [facility] [address] [phone] 02/28/2025 11:30 AM CDT Office Visit [facility] [address] [phone] Everett Arriaga MD [address] [place] [address] documented as of this encounter Visit Diagnoses Not on filedocumented in this encounter Additional Health Concerns Assessment Noted Time PHQ-9 Depression Total Score: 1 01/13/20 21 3:49 PM VISCOSE DEPARTMENT WORKER documented as of this encounter Care Teams Lamp Cleaner Relationship Specialty Start Date End Date Jacey Handley MD [address] [place] [address] [place] [address] PCP - General Internal Medicine 08/18/22 Everett Arriaga MD [address] [place] [address] Consulting Physician Oncology 10/20/20 documented as of this encounter
--- OUTSIDE RECORDS SUMMARY | 2025-01-29 18:11 | XMS_ITS | Referral Summary ---
Author Organization [facility] Address [address] [place] [address] Care Team Providers Care Skilled Nursing Professional Name Role Phone Marco Granados MD Primary Care Provider [phone] Source Comments [facility],non-owned Affiliates and Associated Physician Practices is amultiple site organization consisting of ambulatory clinics and hospital sitesin [place], [place], [place] and [place]. This disclosure is being madepursuant to the Care Everywhere program and may not contain all information available regarding this patient. Last updated 18.[facility] Active Problems Problem Noted Date Diagnosed Date [...] of Treatment Not on file Care Teams Skilled Nursing Professional Relationship Specialty Start Date End Date Marco Granados MD [address] [place] [address] PCP - General Internal Medicine 11/23/17
--- OUTSIDE RECORDS SUMMARY | 2025-01-29 18:11 | XMS_ITS | Clinical Summary ---
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 Stiffness of shoulder [...] on file Legal Sex Female 1:15 AM [place] GUIDE Gender Identity Female 10/30/2020 9:29 PM [place] GUIDE Sexual Orientation Straight 10/30/2020 9: 29 PM [place] GUIDE Obstetrics History Last Filed Vital Signs Vital [...] history exists Medical Devices Implanted Type Area Advertising Display Rotator Device Identifier Shelf Expiration Date Model / Serial / Lot Shoulder Replacement Right: Shoulder Procedures Procedure Name Priority Date/Time Associated Diagnosis Comments DEXA TBS AXIAL SKELETON BONE DENSITY 1 OR MORE SITES Schedule Routine, Read Routine (OP Routine) 01/01/2024 12:40 PM [place] GUIDE Osteoporosis, unspecified osteoporosis type, unspecified pathological fracture presence from Last 3 Months or Most Recently Relevant to Health Maintenance Results * Dexa TBS Axial Skeleton Bone Density 1 or more sites (01/01/2024 12:40 PM [place] GUIDE) Anatomical Region Laterality Modality Wrist, Body N/A Radiographic Daksha ging Narrative 01/03/2024 11:35 AM [place] GUIDE Patient Name: Rey Blancas Date of : 1940 Date of scan: 01/01/2024 Bone mineral density was performed on a [employer] Discovery Densitometer. Based on machine cross-calibration and [...] by the International Society of Clinical Densitometry. [id number] Ayo Julien MD IMG DXA PROCEDURES Final Result from Last 3 Months or Most Recently Relevant to Health Maintenance Insurance [employer] [facility] Address: [facility] [address] [place] [address] MEDICARE [employer] MED[employer]ARE SOL[employer]IONS Advance Directives For more information, please contact: [phone] Documents on File Type Date Recorded Patient Cashier Associate Expl anation ADVANCE DIRECTIVE 10/02/2018 12:00 AM [facility] ER OF ONCOLOGY NAVIGATOR FINANCIAL/MEDICAL * Full Code (Latest Code Status on File) Date Activated Date Inactivated Comments 07/19/2019 10:55 AM 07/19/2019 6:45 PM Care Teams Music Supervisor Relationship Specialty Start Date End Date Jacey Handley MD [address] [facility] [place] [address] PCP - General Internal Medicine 12/08/22 Elijah Palumbo MD [address] [place] [address] Referring Physician Gastroenterology 07/11/24 Truman Dillon MD [phone] [place] [address] Surgeon Colon and Rectal Surgery 07/23/24 Davin Madsen MD [address] [facility] [address] [place] [address] Roofer Gypsum Gastroenterology 07/23/24
--- OUTSIDE RECORDS SUMMARY | 2025-01-29 18:11 | XMS_ITS | Encounter Summary ---
Author Organization [facility] Address [address] [place] [address] Phone Care Team Providers Care Coat Joiner Lockstitch Name Role Phone Delia Harry MD Primary Care Provider [phone] Ysabel Winters MD Primary Care Provider [phone] Jacey Handley MD Primary Care Provider [phone] Elijah Palumbo MD Unavailable [phone] Truman Dillon MD Unavailable [phone] Davin Madsen MD Unavailable [phone] Reason for Visit * Reason Onset Date Comments Zoom invite 09/22/2020 1:44pm YR spoke with Ms. Blancas and set her up for testing 10/01/2020 10:00am Encounter Details Date Type Department Care Team (Late st Contact Info) Description 09/22/2020 Documentation [facility] [address] [place] [address] First Floor [address] [place] [address] Ewelina Fung CNA Zoom invite (1:44pm YR [...] on file Legal Sex Female 1:15 AM CASING RUNNER Gender Identity Female 10/30/2020 9:29 PM CASING RUNNER Sexual Orientation Straight 10/30/2020 9: 29 PM CASING RUNNER documented as of this encounter Plan of Treatment Not on file documented as of this encounter Visit Diagnoses Not on filedocumented in this encounter Care Teams Coat Joiner Lockstitch Relationship Specialty Start Date End Date Delia Harry MD [address] [facility] [address] [place] [address] PCP - General 01/18/19 12/06/20 Ysabel Winters MD [address] [facility] [address] [place] [address] PCP - General 12/07/20 12/07/22 Jacey Handley MD [facility] [place] [address] PCP - General Internal Medicine 12/08/22 Elijah Palumbo MD [address] [place] [address] Referring Physician Gastroenterology 07/11/24 Truman Dillon MD [phone] [place] [address] Surgeon Colon and Rectal Surgery 07/23/24 Davin Madsen MD [address] [facility] [address] [place] [address] Crop Quantitative Geneticist Gastroenterology 07/23/24 documented as of this encounter
--- OUTSIDE RECORDS SUMMARY | 2025-01-29 18:11 | XMS_ITS | Clinical Summary ---
Author Organization [facility] Address [address], [facility] [address] [place] [address] Phone Care Team Providers Care Boring Machine Operator Helper Name Role Phone Everett Arriaga MD Unavailable [phone] Jacey Handley MD Primary Care Provider [phone] Allergies Active Allergy Reactions Criticality Noted Date [...] Lnp-s, Pf, 3 0 Mcg/0.3 Ml Dose ([place]) 01/15/2021,12/25/2020 Hepatitis A Vaccine 06/25/2019,03/19/2018 Hepatitis A, [...] AM CDT Lab [facility] [address] [address] Lab, Meagan [facility] 02/28/2025 11:00 AM CDT Ancillary Procedure [facility] [address] [address] 02/28/2025 11:30 AM CDT Office Visit [facility] [address] [id number] Everett Arriaga MD [address] [place] [address] Health Maintenance Due Date Last [...] Procedure Name Priority Date/Time Associated Diagnosis Comments [facility] BONE DENSITOMETRY AXIAL SKELETON Routine 11/23/2023 9:58 AM FLAVOR TANK TENDER Encounter for monitoring aromatase inhibitor therapy from Last 3 Months or Most Recently Relevant to Health Maintenance Results * [facility] BONE DENSITOMETRY AXIAL SKELETON (11/23/2023 9:58 AM FLAVOR TANK TENDER) Anatomical Region Laterality Modality BODY N/A Other Narrative 11/23/2023 11:24 AM FLAVOR TANK TENDER EXAMINATION: [facility] BONE DENSITOMETRY AXIAL SKELETON INDICATIONS: Encounter for [...] Signature: 11/23/2023 11:24:30 us Emma Martínez APRN, CLAMSHELL OPERATOR IMG DEXA ORDERABL ES Final Result from Last 3 Months or Most Recently Relevant to Health Maintenance Insurance MEDICARE C [facility] Care Teams Boring Machine Operator Helper Relationship Specialty Start Date End Date Jacey Handley MD [address] [place] [address] PCP - General Internal Medicine 08/18/22 Everett Arriaga MD [address] [place] [address] Consulting Physician Oncology 10/20/20
--- OUTSIDE RECORDS SUMMARY | 2025-01-29 18:11 | XMS_ITS | Patient Health Summary ---
Author Organization [facility] Address [address] [place] [address] Care Team Providers Care Benefits Officer Name Role Phone Marco Granados MD Primary Care Provider Note from [facility],non-owned Affiliates and Associated Physician Practices is amultiple site organization consisting of ambulatory clinics and hospital sitesin [place], [place], [place] and [place]. This disclosure is being madepursuant to the Care Everywhere program and may not contain all information available regarding this patient. Last updated 18.[facility] Active Problems Problem Noted Date Diagnosed Date [...] BRAIN METABOLIC EVAL IMAGING (11/23/2017 2:15 PM LINUX SYSTEMS ANALYST) Narrative [facility] - 12/25/2017 10:41 AM LINUX SYSTEMS ANALYST No Dictation. Altaf Hernandez DO [place] ORDERABLES [facility] Care Teams Benefits Officer Relationship Specialty Start Date End Date Marco Granados MD [address] [place] [address] (work) PCP - General Internal Medicine 11/23/17
--- OUTSIDE RECORDS SUMMARY | 2025-01-29 18:11 | XMS_ITS | Encounter Summary ---
Author Organization [facility] Care Team Providers Care Chief Digital Media Officer Name Role Phone Delia Harry MD Primary Care Provider [phone] Ysabel Winters MD Primary Care Provider [phone] Jacey Handley MD Primary Care Provider [phone] Elijah Palumbo MD Unavailable [phone] Truman Dillon MD Unavailable [phone] Davin Madsen MD Unavailable [phone] Encounter Details Date Type Department Care Team (Latest Contact Info) Description 10/17/2018 Orders Only [facility]IN[facility] ProviderRobert MD [address] [place], [place] [id number] Social History Tobacco Use Types Packs/Day Years Used Date Smoking Tobacco: Never Alcohol Use Standard Drinks/Week Comments Yes 0 (1 standard drink = 0.6 oz pur e alcohol) Comments Unknown Sex and Gender Information Value Date Recorded Sex Assigned at Not on file Legal Sex Female 1:15 AM WEB RETAILER Gender Identity Female 10/30/2020 9:29 PM WEB RETAILER Sexual Orientation Straight 10/30/2020 9: 29 PM WEB RETAILER documented as of this encounter Plan of Treatment Not on file documented as of this encounter Procedures Procedure Name Priority Date/Time Associated Diagnosis Comments PROCEDURE - RESULT 10/17/2018 12 :00 AM WEB RETAILER documented in this encounter Results * PROCEDURE - RESULT (10/17/2018 12:00 AM WEB RETAILER) Narrative 10/17/2018 12:00 AM WEB RETAILER Ordered by an unspecified provider. us Historical Provider Final Res ult documented in this encounter Visit Diagnoses Not on filedocumented in this encounter Care Teams Chief Digital Media Officer Relationship Specialty Start Date End Date Delia Harry MD [address] [facility] [address] [place] [address] PCP - General 01/18/19 12/06/20 Ysabel Winters MD [address] [facility] [address] [place] [address] PCP - General 12/07/20 12/07/22 J[place] [address] PCP - General Internal Medicine 12/08/22 Elijah Palumbo MD [address] [place] [address] Referring Physician Gastroenterology 07/11/24 Truman Dillon MD [phone] [place] [address] Surgeon Colon and Rectal Surgery 07/23/24 Davin Madsen MD [address] [facility] [address] [place] [address] Mannequin Mold Maker Gastroenterology 07/23/24 documented as of this encounter
[2025-01-29 18:13] VITALS: BP 150/68; PULSE 80; RESP 18; O2SAT 100
== END 2025-01-29 18:15 | disposition home or self-care (01) ==
LOC: ANHED 17:53
PROVIDERS: Emergency Provider Student in an Organized Health Care Education/Training Program; PCP Nurse Practitioner Family
DX: G47.00 Insomnia, unspecified (principal); F03.90 Unspecified dementia, unspecified severity, without behavioral disturbance, psychotic disturbance, mood disturbance, and anxiety; E03.9 Hypothyroidism, unspecified; E27.40 Unspecified adrenocortical insufficiency; K21.9 Gastro-esophageal reflux disease without esophagitis; Z86.73 Personal history of transient ischemic attack (TIA), and cerebral infarction without residual deficits; Z85.3 Personal history of malignant neoplasm of breast; Z85.22 Personal history of malignant neoplasm of nasal cavities, middle ear, and accessory sinuses; Z87.440 Personal history of urinary (tract) infections; Z96.611 Presence of right artificial shoulder joint; Z90.710 Acquired absence of both cervix and uterus; Z79.899 Other long term (current) drug therapy; R94.31 Abnormal electrocardiogram [ECG] [EKG]
CPT/HCPCS: 36415; 80053; 81001; 85025; 85610; 85730; 87086; 93005; 99284

== ENCOUNTER 2025-02-26 12:11 | Outpatient (CLI) | payer MEDICARE, SELFPAY ==
[2025-02-26 12:54] LABS: Add Urine Microscopic? NO; Appearance Urine Clear (Clear); Bilirubin Urine Negative (Negative); Blood Urine Negative (Negative); Color Urine Yellow (Yellow); Glucose Urine UA Negative (Negative); Ketones Urine Negative (Negative); Leukocyte Esterase Ur Negative LEU/UL (Negative); Nitrate Urine Negative (Negative); Protein Urine Negative (Negative); Specific Grav Ur 1.008 (1.001-1.035); Urobilinogen Urine 0.2 mg/dL (<2.0); pH Urine 6.5 (5.0-9.0)
--- OUTSIDE RECORDS SUMMARY | 2025-02-26 13:35 | XMS_ITS | Encounter Summary ---
Author Organization [facility] Address [address] [place] [address] Phone Care Team Providers Care Printing Press Operator Name Role Phone Everett Arriaga MD Unavailable [phone] Jacey Handley MD Primary Care Provider [phone] Reason for Visit * Reason Onset Date Comments Canopy Call 08/09/2024 Encounter Details Date Type Department Care Team (Late st Contact Info) Description 08/09/2024 Telephone [facility] [address] [place] [address] Everett Arriaga MD [address] [place] [address] Canopy Call Social History Tobacco [...] Arriaga MD Blunk, Jennifer A., RMA; [facility] Nurse Pool3 hours ago [...] AM CDT Lab [facility] [address] [address] Lab, Cc [facility] 02/28/2025 11:00 AM CDT Ancillary Procedure [facility] [address] [phone] 02/28/2025 11:30 AM CDT Office Visit [facility] [address] [address] Everett Arriaga MD [address] [place] [phone] documented as of this encounter Results * (ABNORMAL) CMP (COMPREHENSIVE METABOLIC PANEL) (08/30/2024 9:25 AM CDT) Glucose 97 70 - 105 mg/dL [facility] Blood Urea Nitrogen 9 7 - 25 mg/dL [facility] Creatinine 0.7 0.6 - 1.2 mg/dL [facility] Sodium 129(L) 136 - 145 mEq/L [facility] Potassium 4.8 3.5 - 5.1 mEq/L [facility] Chloride 90(L) 98 - 107 mEq/L [facility] Bicarbonate 30 21 - 31 mEq/L [facility] Total Bilirubin 1.2(H) 0.3 - 1.0 mg/dL [facility] Alk. Phosphatase 58 34 - 104 U/L [facility] Aspartate Aminotransferase 22 13 - 39 U/L [facility] Alanine Aminotransferase 12 7 - 52 U/L [facility] Total Protein 7.0 6.4 - 8.9 g/dL [facility] Albumin 4.5 3.5 - 5.7 g/dL [facility] Calcium 10.0 8.6 - 10.3 mg/dL [facility] Anion Gap 13.8 7.0 - 15.0 mEq/L [facility] Globulin 2.5 2.0 - 3.5 g/dL [facility] EGFR 85 >60 ml/min/1. 73m2 CANCER MOTOR BIKE MECHANIC [facility] Comment: This eGFR is calculated using 2020 CKD-EPI Creatinine equation without race modifier based on the NKF-ASN task force recommendations Blood 08/30/2024 9:25 AM CDT Narrative CANCER MOTOR BIKE MECHANIC [facility] - 08/30/2024 11:54 AM CDT Release to patient->Immediate IS THE PATIENT REQUIRED TO BE FASTING FOR 8 HOURS?->No us Everett Arriaga MD CHEMISTRY ORDERABLES Final Result CANCER MOTOR BIKE MECHANIC [facility] [place] [address], documented in this encounter Visit Diagnoses Diagnosis 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, estrogen receptor positive (HCC)- Primary 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, estrogen receptor positive (HCC) documented in this encounter Additional Health Concerns Assessment Noted Time PHQ-9 Depression Total Score: 1 01/13/20 21 3:49 PM BASE FILLER documented as of this encounter Care Teams Printing Press Operator Relationship Specialty Start Date End Date Jacey Handley MD [address] [employer] [place] [address] PCP - General Internal Medicine 08/18/22 Everett Arriaga MD [address] [place] [phone] Consulting Physician Oncology 10/20/20 documented as of this encounter
--- OUTSIDE RECORDS SUMMARY | 2025-02-26 13:35 | XMS_ITS | Encounter Summary ---
Author Organization [facility] Address [facility] [place] [address] Care Team Providers Care Mixer Operator Vacuum Pan Salt Name Role Phone Gen Kirk MD Unavailable [phone] Miguel Angel Tamayo MD Unavailable [phone] Ngoc Leach NP Primary Care Provider [phone] Reason for Referral * Imaging (Routine) - New Request Specialty Diagnoses / Procedures Referred By Steven fowler Referred To Contact RADIOLOGY Diagnoses Encounter for screening mammogram for malignant neoplasm of breast Procedures MG SCREENING W CHRISTAEran Ramos NP [address] [place] [address] Phone: tel: fax: Referral ID Status Reason Start Date Expiration Date V isits Requested Visits Authorized [id number] New Request 08/30/2024 10/30/2025 1 1 Reason for Visit * Imaging (Routine) - New Request Specialty Diagnoses / Procedures Referred By Steven fowler Referred To Contact RADIOLOGY Diagnoses Encounter for screening mammogram for malignant neoplasm of breast Procedures MG SCREENING W CHRISTA MARGARITA Eran Carmona NP [address] [place] [address] Phone: tel: fax: Referral ID Status Reason Start Date Expiration Date V isits Requested Visits Authorized [id number] New Request 08/30/2024 10/30/2025 1 1 Encounter Details Date Type Department Care Team (Late st Contact Info) Description 02/25/2025 11:34 AM CDT Hospital Encounter [facility] [place] [address] Eran Nunez, AMAN [address] [place] [address] Arrived Social History Tobacco Use Types Packs/Day Years Used Date Smoking Tobacco: Never Smokeless Tobacco: Never Comments No Sex and Gender Information Value Date Recorded Sex Assigned at Female 01/06/2025 3:13 PM MATERIAL CONTROL SPECIALIST Legal Sex Female 7:41 PM CDT Gender Identity Not on file Sexual Orientation Not on file documented as of this encounter Plan of Treatment Upcoming Encounters Date Type Department Care Team (Late st Contact Info) Description 05/12/2025 8:00 AM CDT Office Visit [facility] [address] [facility], [address] [place] [address] Gina Lazcano MD [address] [place] [address] documented as of this encounter Procedures Procedure Name Priority Date/Time Associated Diagnosis Comments MG SCREENING W CHRISTA MARGARITA DIGI Routine 02/25/2025 11:52 AM CDT Encounter for screening mammogram for malignant neoplasm of breast documented in this encounter Results * MG SCREENING W CHRISTA MARGARITA DIGI (02/25/2025 11:52 AM CDT) Anatomical Region Laterality Modality Breast Bilateral Mammography 02/25/2025 2:10 PM CDT Impressions 02/25/2025 2:14 PM CDT IMPRESSION: No suspicious mammographic findings. Recommendation: 1. Routine Screening, Bilateral Assessment: ACR BI-RADS 2 - BENIGN FINDING(S) Ordered By: ERAN NUNEZ Interpreted By: Arias Willis MD, 02/25/2025 2:10 PM Narrative 02/25/2025 2:14 PM CDT [facility] [address] [place] [address] Examination: Screening bilateral mammogram Exam Date: 02/25/2025 11:41 AM Clinical history: Routine screening. History of right breast cancer with prior lumpectomy in 2019. Comparison: 02/13/2024, 02/02/2023 Technique: Digital screening mammography of both breasts was performed. Breast tomosynthesis acquisitions were obtained and reviewed. This study was read with the assistance of a computer-aided detection system. Tissue density: There are scattered areas of fibroglandular density. Findings: The breast parenchymal pattern is stable bilaterally. Residual surgical and therapeutic changes of the right breast. No suspicious masses, malignant appearing calcifications, skin thickening or other abnormalities are present. No significant change from the prior exam. Eran Nunez NP MAMMO Final Result documented in this encounter Visit Diagnoses Diagnosis Encounter for screening mammogram for malignant neoplasm of breast Other screening mammogram documented in this encounter Care Teams Mixer Operator Vacuum Pan Salt Relationship Specialty Start Date End Date Ngoc Leach NP [address] [address] PCP - General Nurse Practitioner Family 01/03/25 Gen Kirk MD [place] Traffic Engineer INTERVENTIONAL CARDIOLOGY 08/28/19 Miguel Angel Tamayo MD [address] [place] [phone] Referring Physician GENERAL SURGERY 08/20/19 documented as of this encounter
--- OUTSIDE RECORDS SUMMARY | 2025-02-26 13:35 | XMS_ITS | Clinical Summary ---
Author Organization [facility] Address [address] [facility] [place] [address] Care Team Providers Care Energy And Sustainability Manager Name Role Phone Marco Granados MD Primary Care Provider [phone] Source Comments [facility],non-owned Affiliates and Associated Physician Practices is amultiple site organization consisting of ambulatory clinics and hospital sitesin [place], [place], [place] and [place]. This disclosure is being madepursuant to the Care Everywhere program and may not contain all information available regarding this patient. Last updated 18.[facility] Active Problems Problem Noted Date [...] VACCINE ( - 2023-2 5 season) 2024 DEPRESSION SCREENING 11/20/2024 MEDICARE AWV CALENDAR YEAR 2024 INFLUENZA VACCINE (Season Ended) 2025 HEPATITIS B VACCINE Aged Out No longe [...] age to complete this topic Care Teams Energy And Sustainability Manager Relationship Specialty Start Date End Date Marco Granados MD [address] [place] [address] PCP - General Internal Medicine 11/23/17
--- OUTSIDE RECORDS SUMMARY | 2025-02-26 13:35 | XMS_ITS | Clinical Summary ---
Author Organization [facility] Address [address] [place] [address] Phone Care Team Providers Care Director Hr Communications Name Role Phone Jacey Handley MD Primary Care Provider [phone] Allergies No known active allergies Medications acetaminophen (TYLENOL) 325 MG tablet Take 650 mg by mouth every 30 minutes as needed 9 Active anastrozole (ARIMIDEX) 1 MG chemo tablet anastrozole 1 mg tablet 2 Active atorvastatin (LIPITOR) 40 MG tablet atorvastatin 40 mg tablet Active carvedilol (COREG) 6.25 MG tablet Take 6.25 mg by mouth in the morning and 6.25 mg in the evening. Take with meals. 2 Active Restasis 0.05 % ophthalmic emulsion INSTILL 1 DROP INTO EACH EYE TWICE DAILY 2 Active levothyroxine (SYNTHROID) 75 MCG tablet 2 Active Probiotic Product capsule Take 1 capsule by mouth in the morning. occais. Active Psyllium 400 MG capsule Fiber (psyllium husk) 0.4 gram capsule Take 1 capsule every day by oral route. Active sertraline (ZOLOFT) 50 MG tablet sertraline 50 mg tablet Take 1 tablet by mouth once daily 1 Active Active Problems Problem Noted Date Diagnosed Date Essential hypertension 11/09/2022 Hyponatremia 02/15/2022 Hypothyroidism 02/10/2021 Osteoporosis 11/01/2019 Malignant neoplasm of lower- outer quadrant of breast, female 11/01/2019 Hyperlipidemia 01/20/2017 Cerebrovascular accident 11/29/2016 Immunizations Immunization Administration Dates Next Due Hep A, Unspecified 06/25/2019,03/19/2018 Hepatitis A 06/25/2019,03/19/2018 Hepatitis B 09/23/2002,04/23/2002,03/21/2002 Influenza Split High Dose Pr eservative Free IM 09/23/2020 Influenza TIV (IM) 09/03/2022 Influenza, Injectable, Quadrivalent 11/18/2021,0 06/25/2019,03/19/2018 Pfizer Sars-cov-2 Vaccination 09/01/2021 Pneumococcal Conjugate 13-Valent 11/29/2016 Pneumococcal Polysaccharide 09/03/2019 Td 06/01/1998 Tdap 11/09/2015,05/06/2003 Typhoid Inactivated 03/20/2018 Typhoid, Unspecified 03/20/2018 Varicella 08/15/2020 Zoster Recombinant 10/26/2020, 0,10/16/2020,08/15 Social History Tobacco Use Types Packs/Day Years Used Date Smoking Tobacco: Never Smokeless Tobacco: Never Tobacco Cessation:Counseling Given: Not Answered Alcohol Use Standard Drinks/Week Comments Yes 1 (1 standard drink = 0.6 oz pur e alcohol) Comments Unknown Sex and Gender Information Value Date Recorded Sex Assigned at Not on file Legal Sex Female 9:07 AM MST Gender Identity Not on file Sexual Orientation Not on file Last Filed Vital Signs Vital Sign Reading Time Taken Comments Blood Pressure 128/70 11/09/2022 8:47 AM CUSTOMS COMPLIANCE MANAGER Pulse 72 11/09/2022 8:47 AM CUSTOMS COMPLIANCE MANAGER Temperature 35.3 C (95.5 F) 11/09/2022 8:47 AM CUSTOMS COMPLIANCE MANAGER Respiratory Rate - - Oxygen Saturation - - Inhaled Oxygen Concentration - - Weight 50.3 kg (111 lb) 11/09/2022 8:47 AM CUSTOMS COMPLIANCE MANAGER Height 165.1 cm (5' 5 ) 11/09/2022 8:47 AM CUSTOMS COMPLIANCE MANAGER Body Mass Index 18.47 11/09/2022 8:47 AM CUSTOMS COMPLIANCE MANAGER Plan of Treatment Health Maintenance Due Date Last Done Comments COVID-19 Vaccine ( season) 2024 09/01/2021, 01/15/2021, 12/25/2020 Influenza Vaccine (Season Ended) 2025 09/03/20 22 Pneumococcal PPSV23/PCV13 65 + Years / High and Highest Risk Completed 09/03/2019, 11/29/2016 Insurance [employer] MEDICARE Care Teams Director Hr Communications Relationship Specialty Start Date End Date Jacey Handley MD [address] [place] [address] PCP - General Internal Medicine 10/10/22
--- OUTSIDE RECORDS SUMMARY | 2025-02-26 13:35 | XMS_ITS | Encounter Summary ---
Author Organization [facility] Address [address] [place] [address] Phone Care Team Providers Care Performance Manager Name Role Phone Everett Arriaga MD Unavailable [phone] Jacey Handley MD Primary Care Provider [phone] Encounter Details Date Type Department Care Team (Late Contact Info) Description 08/12/2024 Telephone [facility] [address] [address] Everett Arriaga MD [address] [place] [address] Social History Tobacco Use Types Packs/Day [...] CDT Lab [facility] [address] [address] Lab, Cc [facility] 02/28/2025 11:00 AM CDT Ancillary Procedure [facility] [address] [phone] 02/28/2025 11:30 AM CDT Office Visit [facility] [address] [phone] Everett Arriaga MD [address] [place] [phone] documented as of this encounter Visit Diagnoses Not on filedocumented in this encounter Additional Health Concerns Assessment Noted Time PHQ-9 Depression Total Score: 1 01/13/20 21 3:49 PM BLOOD BANK WORKER documented as of this encounter Care Teams Performance Manager Relationship Specialty Start Date End Date Jacey Handley MD [address] [place] [address] [place] [address] PCP - General Internal Medicine 08/18/22 Everett Arriaga MD [address] [place] [phone] Consulting Physician Oncology 10/20/20 documented as of this encounter
--- OUTSIDE RECORDS SUMMARY | 2025-02-26 13:35 | XMS_ITS | Encounter Summary ---
Author Organization [facility] Address [address] [place] [address] Phone Care Team Providers Care Solderer Dipper Name Role Phone Delia Harry MD Primary Care Provider [phone] Ysabel Winters MD Primary Care Provider [phone] Jacey Handley MD Primary Care Provider [phone] Elijah Palumbo MD Unavailable [phone] Truman Dillon MD Unavailable [phone] Davin Madsen MD Unavailable [phone] Reason for Visit * Reason Onset Date Comments Zoom invite 09/22/2020 1:44pm YR spoke with Ms. Blancas and set her up for testing 10/01/2020 10:00am Encounter Details Date Type Department Care Team (Late st Contact Info) Description 09/22/2020 Documentation [facility] [address] [place] [address] [address] Floor [address] [place] [address] Ewelina Fung CNA Zoom invite (1:44pm YR [...] on file Legal Sex Female 1:15 AM LENDING MANAGER Gender Identity Female 10/30/2020 9:29 PM LENDING MANAGER Sexual Orientation Straight 10/30/2020 9: 29 PM LENDING MANAGER documented as of this encounter Plan of Treatment Not on file documented as of this encounter Visit Diagnoses Not on filedocumented in this encounter Care Teams Solderer Dipper Relationship Specialty Start Date End Date Delia Harry MD [address] [facility] [address] [place] [address] PCP - General 01/18/19 12/06/20 Ysabel Winters MD [address] [facility] [address] [place] [address] PCP - General 12/07/20 12/07/22 Jacey Handley MD [facility] [place] [address] PCP - General Internal Medicine 12/08/22 Elijah Palumbo MD [address] [place] [address] Referring Physician Gastroenterology 07/11/24 Truman Dillon MD [phone] [place] [address] Surgeon Colon and Rectal Surgery 07/23/24 Davin Madsen MD [address] [facility] [address] [place] [address] Prevention Specialist Gastroenterology 07/23/24 documented as of this encounter
--- OUTSIDE RECORDS SUMMARY | 2025-02-26 13:35 | XMS_ITS | Encounter Summary ---
Author Organization [facility] Address [facility] [place] [address] Care Team Providers Care Serging Machine Operator Automatic Name Role Phone Gen Kirk MD Unavailable [phone] Miguel Angel Tamayo MD Unavailable [phone] Ngoc Leach NP Primary Care Provider [phone] Encounter Details Date Type Department Care Team (Latest Contact Info) Description 02/25/2025 Travel Social History Tobacco Use Types Packs/Day Years Used Date Smoking Tobacco: Never Smokeless Tobacco: Never Comments No Sex and Gender Information Value Date Recorded Sex Assigned at Female 01/06/2025 3:13 PM HARD CANDY BATCH MIXER Legal Sex Female 7:41 PM CDT Gender Identity Not on file Sexual Orientation Not on file documented as of this encounter Plan of Treatment Upcoming Encounters Date Type Department Care Team (Late st Contact Info) Description 05/12/2025 8:00 AM CDT Office Visit [facility] - [facility] [address] [facility], [address] [place] [address] Gnia Lazcano MD [address] [place] [address] documented as of this encounter Visit Diagnoses Not on filedocumented in this encounter Care Teams Serging Machine Operator Automatic Relationship Specialty Start Date End Date Ngoc Leach NP [address] [place] [address] PCP - General Nurse Practitioner Family 01/03/25 Gen Kirk MD [place] [employer] Services Representative INTERVENTIONAL CARDIOLOGY 08/28/19 Miguel Angel Tamayo MD [address] [place] [address] Referring Physician GENERAL SURGERY 08/20/19 documented as of this encounter
--- OUTSIDE RECORDS SUMMARY | 2025-02-26 13:35 | XMS_ITS | Clinical Summary ---
Author Organization [facility] Address [address] [place] [address] Care Team Providers Care Hog Buyer Name Role Phone Gen Kirk MD Unavailable [phone] Miguel Angel Tamayo MD Unavailable [phone] Ngoc Kuhn NP Primary Care Provider [phone] Allergies No known active allergies Medications atorvastatin [...] Encounters Date Type Department Care Team Description 02/25/2025 11:34 AM CDT Hospital Encounter [facility] [place] [address] Dora Nunez NP Arrived 02/25/2025 Travel 01/06/2025 3:19 PM CHEMIST - 01/06/2025 11:59 PM CHEMIST Hospital Encounter [facility] Open MRI [address] [place] [address] Ngoc Kuhn NP Discharge Disposition: Home or Self Care (Routine Discharge) 01/06/2025 Travel from Last 3 Months Family History Medical History Relation Comments Breast Cancer Sister Relation Status Comments Sister Social History Tobacco Use Types Packs/Day Years Used Date Smoking Tobacco: Never Smokeless Tobacco: Never Comments No Sex and Gender Information Value Date Recorded Sex Assigned at Female 01/06/2025 3:13 PM CHEMIST Legal Sex Female 7:41 PM CDT Gender [...] Description 05/12/2025 8:00 AM CDT Office Visit [facility] - [facility] [address] [facility], [address] [place] [id number] Gina Lazcano MD [address] [place] [address] Health Maintenance Due Date Last Done Comments Annual Medicare Wellness Visit 02/20/2005 COVID-19 Vaccine ( season) 2024 09/01/2021, 01/15/2021, 12/25/2020 DTaP, Tdap and Td Vaccines (3 - [...] screening mammogram for malignant neoplasm of breast MRI BRAIN WO CON Routine 01/06/2025 3:54 PM CHEMIST Headache, unspecified Other chronic pain Other amnesia Unspecified dementia, unspecified severity, without behavioral disturbance, psychotic disturbance, mood disturbance, and anxiety (CMS/HCC) BONE DENSITY/DEXA Routine 10/25/2019 1:5 0 PM CHEMIST Postmenopausal from Last 3 Months or Most Recently Relevant to Health Maintenance Results * MG SCREENING W CHRISTA MARGARITA DIGI (02/25/2025 11:52 AM CDT) Anatomical Region Laterality Modality Breast Bilateral Mammography 02/25/2025 2:10 PM CDT Impressions 02/25/2025 2:14 PM CDT IMPRESSION: No suspicious mammographic findings. Recommendation: 1. Routine Screening, Bilateral Assessment: ACR BI-RADS 2 - BENIGN FINDING(S) Ordered By: DORA NUNEZ Interpreted By: Arias Willis MD, 02/25/2025 2:10 PM Narrative 02/25/2025 2:14 PM CDT [facility] [address] [place] [address] Examination: Screening bilateral mammogram Exam Date: 02/25/2025 [...] No significant change from the prior exam. us Dora Nunez BUFFING WHEEL RAKER MAMMO Final Result * MRI BRAIN WO CON (01/06/2025 3:54 PM CHEMIST) Anatomical Region Laterality Modality Head Magnetic Resonan ce 01/08/2025 5:14 AM CHEMIST Impressions 01/08/2025 5:16 AM CHEMIST IMPRESSION: ===== 1. No acute intracranial abnormalities. No MRI findings to explain patient's symptoms. 2. Atrophy and small vessel ischemic disease. 3. Minimal ethmoid mucosal sinus disease Referred By: NGOC KUHN Interpreted By: Cr Sullivan MD, 01/08/2025 5:14 AM Narrative 01/08/2025 5:16 AM [address]MIST [address] [address] EXAMINATION: MRI brain without contrast. EXAM DATE/TIME: [...] Procedure Note Cr Sullivan MD - 01/08/[address] [address] EXAMINATION: MRI brain without contrast. EXAM DATE/TIME: [...] signal in the visualized cervical cord on [id number]. ===== IMPRESSION: ===== 1. No acute intracranial abnormalities. No MRI findings to explainpatient's symptoms. 2. Atrophy and small vessel ischemic disease. 3. Minimal ethmoid mucosal sinus disease Referred By: NGOC KUHN Interpreted By: Cr Sullivan MD, 01/08/2025 5:14 AM Ngoc Kuhn BUFFING WHEEL RAKER MRI Final Result * BONE DENSITY/DEXA (10/25/2019 1:50 PM CHEMIST) Anatomical Region Laterality Modality Bone Mammography 10/25/2019 3:00 PM CHEMIST Impressions 10/25/2019 3:02 PM CHEMIST Impression: BMD measured at AP lumbar spine at WHO category level of osteoporosis. BMD measured at both total hips and both femoral necks at level of osteopenia. Narrative 10/25/2019 3:02 PM CHEMIST Examination: DEXA Bone densitometry EXAM DATE: 10/25/2019 [...] Most Recently Relevant to Health Maintenance Insurance [facility] Care Teams Hog Buyer Relationship Specialty Start Date End Date Ngoc Kuhn NP [address] [place] [address] PCP - General Nurse Practitioner Family 01/03/25 Gen Kirk MD [employer] Qa Lab Technician INTERVENTIONAL CARDIOLOGY 08/28/19 Miguel Angel Tamayo MD [address] [place] [address] Referring Physician GENERAL SURGERY 08/20/19
--- OUTSIDE RECORDS SUMMARY | 2025-02-26 13:36 | XMS_ITS | Encounter Summary ---
Author Organization [facility] Address [address] [place] [address] Phone Care Team Providers Care Supervisor Tunnel Heading Name Role Phone Delia Harry MD Primary Care Provider [phone] Ysabel Winters MD Primary Care Provider [phone] Jacey Handley MD Primary Care Provider [phone] Elijah Palumbo MD Unavailable [phone] Truman Dillon MD Unavailable [phone] Davin Madsen MD Unavailable [phone] Encounter Details Date Type Department Care Team (Late st Contact Info) Description 10/24/2019 Orders Only [facility] Gastroenterology [address] [facility] Office [address] [place] [phone] Lolis Mcallister MD [address] [place] [address] [address] [place] [address] Social History Tobacco Use Types Packs/Day Years Used Date Smoking Tobacco: Never Smokeless Tobacco: Never Alcohol Use Standard Drinks/Week Comments Yes 2 (1 standard drink = 0.6 oz pur e alcohol) Comments No Sex and Gender Information Value Date Recorded Sex Assigned at Not on file Legal Sex Female 1:15 AM COMPANY MANAGER Gender Identity Female 10/30/2020 9:29 PM COMPANY MANAGER Sexual Orientation Straight 10/30/2020 9: 29 PM COMPANY MANAGER documented as of this encounter Plan of Treatment Not on file documented as of this encounter Visit Diagnoses Not on filedocumented in this encounter Care Teams Supervisor Tunnel Heading Relationship Specialty Start Date End Date Delia Harry MD [address] [facility] [address] [place] [address] PCP - General 01/18/19 12/06/20 Ysabel Winters MD [address] [facility] [address] [place] [address] PCP - General 12/07/20 12/07/22 Jacey Handley MD [employer] [place] [address] PCP - General Internal Medicine 12/08/22 Elijah Palumbo MD [address] [place] [address] Referring Physician Gastroenterology 07/11/24 Truman Dillon MD [address] [facility] [phone] [place] [address] Surgeon Colon and Rectal Surgery 07/23/24 Davin Madsen MD [address] [facility] [address] [facility] [address] [place] [address] Marketing Content Coordinator Gastroenterology 07/23/24 documented as of this encounter
--- OUTSIDE RECORDS SUMMARY | 2025-02-26 13:36 | XMS_ITS | Encounter Summary ---
Author Organization [facility] Address [address] [address] Phone Care Team Providers Care Apartment Maintenance Manager Name Role Phone Delia Harry MD Primary Care Provider [phone] Everett Arriaga MD Unavailable Jacey Handley MD Primary Care Provider [phone] Reason for Visit * Reason Comments Medication Refill Encounter Details Date Type Department Care Team (Late st Contact Info) Description 07/17/2022 Refill [facility] [address] [place] [address] Everett Arriaga MD [address] [place] [address] Medication Refill Social History Tobacco Use [...] * Telephone Encounter - Emma Thacker, KELSEY, [employer]ATIONAL ACCOUNTS SALES - 07/18/2022 10:20 AM CDT Okay to refill. * Telephone Encounter - Christiana Sheppard RN - 07/18/2022 8:03 AM CDT Refill request from pharmacy Last filled 10/22/2021 #[id number] R-[id number] Please fill if appropriate documented in this encounter Plan of Treatment Upcoming Encounters Date Type Department Care Team (Late st Contact Info) Description 02/28/2025 10:15 AM CDT Lab [facility] [address] [phone] Lab, [facility] 02/28/2025 11:00 AM CDT Ancillary Procedure [facility] [address] [phone] 02/28/2025 11:30 AM CDT Office Visit [facility] [address] [phone] Everett Arriaga MD [address] [place] [phone] documented as of this encounter Visit Diagnoses Diagnosis 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, estrogen receptor positive (HCC) Other osteoporosis, unspecified pathological fracture presence documented in this encounter Additional Health Concerns Assessment Noted Time PHQ-9 Depression Total Score: 1 01/13/20 21 3:49 PM ENTERPRISE MANAGER documented as of this encounter Care Teams Apartment Maintenance Manager Relationship Specialty Start Date End Date Delia Harry MD [address] [address] PCP - General Family Medicine 08/13/19 08/16/22 Jacey Handley MD [address] [employer] [address] PCP - General Internal Medicine 08/18/22 Everett Arriaga MD [address] [place] [address] Consulting Physician Oncology 10/20/20 documented as of this encounter
--- OUTSIDE RECORDS SUMMARY | 2025-02-26 13:36 | XMS_ITS | Encounter Summary ---
Author Organization [facility] Care Team Providers Care Business Law Instructor Name Role Phone Delia Harry MD Primary Care Provider [phone] Ysabel Winters MD Primary Care Provider [phone] Jacey Handley MD Primary Care Provider [phone] Elijah Palumbo MD Unavailable [phone] Truman Dillon MD Unavailable [phone] Davin Madsen MD Unavailable [phone] Encounter Details Date Type Department Care Team (Latest Contact Info) Description 09/24/2018 Orders Only [facility] ProviderRobert MD [address] [place] [address] Social History Tobacco Use Types Packs/Day Years Used Date Smoking Tobacco: Never Alcohol Use Standard Drinks/Week Comments Yes 0 (1 standard drink = 0.6 oz pur e alcohol) Comments Unknown Sex and Gender Information Value Date Recorded Sex Assigned at Not on file Legal Sex Female 1:15 AM STRANDING MACHINE OPERATOR HELPER Gender Identity Female 10/30/2020 9:29 PM STRANDING MACHINE OPERATOR HELPER Sexual Orientation Straight 10/30/2020 9: 29 PM STRANDING MACHINE OPERATOR HELPER documented as of this encounter Plan of Treatment Not on file documented as of this encounter Procedures Procedure Name Priority Date/Time Associated Diagnosis Comments PROCEDURE - RESULT 09/24/2018 12 :00 AM STRANDING MACHINE OPERATOR HELPER documented in this encounter Results * PROCEDURE - RESULT (09/24/2018 12:00 AM STRANDING MACHINE OPERATOR HELPER) Narrative 09/24/2018 12:00 AM STRANDING MACHINE OPERATOR HELPER Ordered by an unspecified provider. us Historical Provider Final Res ult documented in this encounter Visit Diagnoses Not on filedocumented in this encounter Care Teams Business Law Instructor Relationship Specialty Start Date End Date Delia Harry MD [address] [facility] [address] [place] [address] PCP - General 01/18/19 12/06/20 Ysabel Winters MD [address] [facility] [address] [place] [address] PCP - General 12/07/20 12/07/22 Jacey Handley [place] [address] PCP - General Internal Medicine 12/08/22 Elijah Palumbo MD [address] [place] [address] Referring Physician Gastroenterology 07/11/24 Truman Dillon MD [phone] [place] [address] Surgeon Colon and Rectal Surgery 07/23/24 Davin Madsen MD [address] [facility] [address] [place] [address] Operations Support Representative Gastroenterology 07/23/24 documented as of this encounter
--- OUTSIDE RECORDS SUMMARY | 2025-02-26 13:36 | XMS_ITS | Referral Summary ---
Author Organization [facility] Address [address] [place] [address] Care Team Providers Care Receiving Team Member Name Role Phone Jacey Handley MD Primary Care Provider [phone] Elijah Palumbo MD Unavailable [phone] Truman Dillon MD Unavailable [phone] Davin Madsen MD Unavailable [phone] Allergies Active Allergy Reactions Criticality Noted [...] (KENALOG) 0.1 % cream 1 Active zoledronic odyr-dqxeiqiJ-s ater (RECLAST) 5 mg/100 mL piggyback 2 [...] (07/16/2019): Added automatically from request for surgery [id number] 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 Stiffness of shoulder [...] on file Legal Sex Female 1:15 AM PIPE JEEPER Gender Identity Female 10/30/2020 9:29 PM PIPE JEEPER Sexual Orientation Straight 10/30/2020 9: 29 PM PIPE JEEPER Last Filed Vital Signs Vital Sign Reading [...] on file Medical Devices Implanted Type Area Day Care Worker Device Identifier Shelf Expiration Date Model / Serial / Lot Shoulder Replacement Right: Shoulder Procedures Procedure Name Priority Date/Time Associated Diagnosis Comments DEXA TBS AXIAL SKELETON BONE DENSITY 1 OR MORE SITES Schedule Routine, Read Routine (OP Routine) 01/01/2024 12:40 PM PIPE JEEPER Osteoporosis, unspecified osteoporosis type, unspecified pathological fracture presence from Last 3 Months or Most Recently Relevant to Health Maintenance Results * Dexa TBS Axial Skeleton Bone Density 1 or more sites (01/01/2024 12:40 PM PIPE JEEPER) Anatomical Region Laterality Modality Wrist, Body N/A Radiographic Daksha ging Narrative 01/03/2024 11:35 AM PIPE JEEPER Patient Name: Rey Blancas Date of : 1940 Date of scan: 01/01/2024 Bone mineral density was performed on a [employer] Wireless Discovery Densitometer. Based on machine cross-calibration and [...] by the International Society of Clinical Densitometry. [id number] Ayo Julien MD IMG DXA PROCEDURES Final Result from Last 3 Months or Most Recently Relevant to Health Maintenance Insurance [facility] ADVANTAGE [facility] Advance Directives For more information, please contact: [phone] Documents on File Type Date Recorded Patient Physical Therapy Assistant Expl anation ADVANCE DIRECTIVE 10/02/2018 12:00 AM POW ER OF EMBOSSER OPERATOR FINANCIAL/MEDICAL * Full Code (Latest Code Status on File) Date Activated Date Inactivated Comments 07/19/2019 10:55 AM 07/19/2019 6:45 PM Care Teams Receiving Team Member Relationship Specialty Start Date End Date Jacey Handley MD [address] [address] PCP - General Internal Medicine 12/08/22 Elijah Palumbo MD [address] [place] [address] Referring Physician Gastroenterology 07/11/24 Truman Dillon MD [address] [facility] [phone] [place] [address] Surgeon Colon and Rectal Surgery 07/23/24 Davin Madsen MD [address] [facility] [address] [place] [address] Handstitching Machine Armhole Feller Gastroenterology 07/23/24
--- OUTSIDE RECORDS SUMMARY | 2025-02-26 13:36 | XMS_ITS | Data Portability ---
Author Organization [facility] Address [address] [place] [address] Care Team Providers Care Vice President Of Manufacturing Name Role Phone KENNETH BOWLING OTHER SELINA LOEWRY Medical Oncologist LUIS OTERO Truck Engine Assembler RENETTA HAMEED Central Office Mechanic MARTY MCGARRY Hr Consultant Assessment Encounter Date Assessment Date Assessment LastModified by Organization Details LastModified Time 01/20/2022 01/20/2022 planning to transition to new PCP doctor after February 18 Not available 01/20/2022 16:48:38 Plan of Treatment Reminders Order Date Submit Date Provider Last Modified By Organization Details Last Modified Time Details Appointments None recorded. Lab BMP, serum or plasma 2021 [facility], [place], [address], 14:37:01 vitamin B12 + folate, serum or blood 2021 [facility], [place], [address], 10:37:47 Referral None recorded. Procedures None recorded. Surgeries None recorded. Imaging None recorded. Medication Orders sertraline 50 mg tablet 2021 [facility] [address] [place], [address], 13:46:13 carvedilol 6.25 mg tablet 2021 022 [facility] [address] [place], [address], 13:46:16 losartan 50 mg tablet [address] [facility] [address] [place], [address], 14:03:59 levothyroxi ne 75 mcg tablet 2020 021 [facility] [address] [place], [address], 13:23:45 Patient TargetsNo targets recorded. Patient Instructions Encounter Date Encounter Id Patient Instructions Last Modified By Organization Details Last Modified Time 05/20/2021 [id number] follow needed in January 2022 Not available 05/20/2021 13:24:06 01/20/2022 [id number] she is still planning to change to PCP close to where she currenly lives Not available 01/20/2022 22:50:10 Reason for Referral None Reported. Results Created Date Observation Date Name Description Value Unit Range Abnormal Flag Note LastModifiedBy Organization Detail LastModifiedTime 04/27/2004/28/2021 BMP, serum or plasm a glucose 122 mg/dL 65-99 above high normal Not Available [facility] ([facility]) [address] [place], [address], 04/28/2021 06:13:11 04/27/2004/28/2021 BMP, serum or plasm a BUN 8 mg/dL 8-27 Not Available [facility] ([facility]) [address] [place], [address], 04/28/2021 06:13:11 04/27/20 21 04/28/2021 BMP, serum or plasm a creatinine 0.88 mg/dL 0.57-1 .00 Not Available [facility] ([facility]) [address] [place], [address], 04/28/2021 06:13:11 04/27/20 21 04/28/2021 BMP, serum or plasm a eGFR if nonafricn AM 62 mL/mi n/1.7 3 >59 Not Available [facility] ([facility]) [address] [place], [address], 04/28/2021 06:13:11 04/27/20 21 04/28/2021 BMP, serum [...] SN Task force . Not Available [facility] ([facility]) [address] [place], [address], 04/28/2021 06:13:11 04/27/2004/28/2021 BMP, serum or plasm a BUN/creatini ne ratio 9 12-28 below low normal Not Available [facility] ([facility]) [address] [facility] [place], [address], 04/28/2021 06:13:11 04/27/2004/28/2021 BMP, serum or plasm a sodium 130 mmol/ L 134-14 4 below low normal Not Available [facility] ([facility]) [address] [facility] [place], [address], 04/28/2021 06:13:11 04/27/2004/28/2021 BMP, serum or plasm a potassium 4.5 mmol/ L 3.5-5. 2 Not Available [facility] ([facility]) [address] [facility] [place], [address], 04/28/2021 06:13:11 04/27/20 21 04/28/2021 BMP, serum or plasm a chloride 94 mmol/ L 96-106 below low normal Not Available [facility] ([facility]) [address] [facility], [place], [address], 04/28/2021 06:13:11 04/27/20 21 04/28/2021 BMP, serum or plasm a carbon dioxide, total 24 mmol/ L 20-29 Not Available [facility] ([facility]) [address] [facility], [place], [address], 04/28/2021 06:13:11 04/27/2004/28/2021 BMP, serum or plasm a calcium 9.6 mg/dL 8.7-10 .3 Not Available [facility] ([facility]) [address] [facility], [place], [address], 04/28/2021 06:13:11 04/28/20 21 04/20/2021 CT, brain , w/o contr ast No observ ation record ed. Not Available 2020 16:44:39 06/24/20 21 06/24/2021 CT, neck, soft tissu e, w/ contr ast No observ ation record ed. [email or web address] [facility] [address], [place], [address], 06/25/2021 15:48:59 07/05/20 21 mg diag W samreen bilat digi [facility] [address] [facility] [address] [place] [address] This is a summar y report . The comple te report is availa ble in the patien t's medica l record . If you cannot access the medica l record , please contac t the sendin g organi zasean for a detail ed fax or copy. EXAMIN ATION: Digita l bilate ral diagno stic mammog asad with 3-D tomogr aphy ACCESS ION: [id number] EXAM DATE/T NNEKA: 9:56 AM REASON FOR EXAM: F/U Right breast cancer COMPAR ZHANE: 020, 019, 017, 2013 TECHNI QUE: Digita l diagno stic mammog jerica of both breast s was perfor med in additi on to 3-D Tomosy nthesi s techni que. This study was read with the assist ance of a BindHQ er-aid ed detect ion system . TISSUE [...] reted By: Anthony Murphy MD, 10:[address] [facility] [address] [facility] [place], [address], 07/05/2021 14:09:53 01/04/20 22 mg diag W samreen RT digi [facility] [address] [place] [address] This is a summar y report . The comple te report is availa ble in the patien t's medica l record . If you cannot access the medica l record , please contac t the debra harrison for a detail ed fax or copy. Examin ation: Digita l right diagno stic mammog asad with 3-D tomosy nthesi s Access ion: [id number] Exam Date/T nneka: 022 12:31 PM [...] read with the assist ance of a BindHQ er-aid ed detect ion system . Tissue [...] 12:55 PM [facility] [address], [place], [address], 01/06/2022 17:43:29 01/14/20 22 01/14/2022 XR, chest , 2 view No observ ation record ed. [address], [place], [address], 01/14/2022 14:58:43 Result Notes None recorded. 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 024177717 Active 2018 Not Available [facility] 0 04:34:47 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 bilatera lly Delia Harry MD Attn: Accounting ,[address] [place], [address] , [place] [facility] 09:44:57 Acute stress disorder 12604748 Active 2020 Delia Harry MD Attn: Accounting ,[address] [place], [address] , [place] 19:16:52 Hyponatr emia 92405390 Active 2021 Delia Harry MD Attn: Accounting ,[address] [place], [address] , [facility] 2 13:47:26 Hypothyr oidism 79007342 Active Not Available [facility] 0 04:34:48 Osteopor osis 69488548 Active Not Available [facility] 0 04:34:47 Headache 64310059 Active Not Available [facility] 0 04:34:47 Abdomina l pain 24198342 Active Not Available [facility] 0 04:34:48 Constipa tion 31132099 Active Not Available [facility] 0 04:34:48 Fatigue 79210674 Active Not Available [facility] 0 04:34:47 Epigastr ic pain 99247654 Active Not Available [facility] 0 04:34:48 Divertic ulosis of colon without divertic ulitis 292293373 Active Not Available [facility] 0 04:34:47 Cerebrov ascular accident 055130568 Active 2016 Not Available [facility] 0 04:34:48 Hyperlip idemia 11740722 Active 2016 Not Available [facility] 0 04:34:48 Arthriti s 7985484 Active 2016 Bilatera l hands Not Available [facility] 0 04:34:47 Problem Notes None recorded. Procedures Surgical History Date Name Laterality Status Provider Name and Address Organization Details Recorded Time 09/20/20 19 Excision addl breast lesion completed Delia Harry MD Attn: Accounting,[address] [facility], [place], [address], [facility] 09/20/2019 16:42:21 08/09/20 19 biopsy of breast completed Delia Harry MD Attn: Accounting,[address] [facility], [place], [address], [facility] 08/12/2019 14:23:58 10/17/20 18 prosthetic total arthroplasty of right shoulder completed Delia Harry MD Attn: Accounting,[address] [facility], [place], [address], [facility] 10/18/2018 08:26:39 11/29/19 17 AIMS completed Felias Thompson MA MD - [facility] 11/29/2016 15:08:32 11/29/19 17 SLUMS EXAM completed Felisa Thompson MA MD - [facility] 11/29/2016 15:08:32 Hysterectomy completed Delia Espinal SHAFT MECHANIC- Attn: Accounting,[address], [place], [address], [facility] 07/23/2015 16:25:02 Imaging Results Imaging Date Name Status LastModified by Organiz ation Details LastModified Time 04/20/2021 CT, brain, w/o contrast completed [facility] Information not available 04/28/2021 16:44:39 06/24/2021 CT, neck, soft tissue, w/ contrast completed [facility] [address], [place], [address], 06/25/2021 15:48:59 07/05/2021 mg diag W samreen bilat digi completed [address], [place], [address], 07/05/2021 14:09:53 01/04/2022 mg diag W samreen RT digi completed LE[facility] [address], [place], [address], 01/06/2022 17:43:29 01/14/2022 XR, chest, 2 view completed [address], [place], [address], 01/14/2022 14:58:43 Procedure Notes None recorded. Medical [...] Updated DateTime 1 165.1 cm 18.3 kg/m2 09589.5 6 g 99 % 99 % 69 /min 97.2 [degF] 138 mm[Hg] 62 mm[Hg] Tulio Bazan MA [facility] 10:50:05 Date Recorded Systolic blood pressure Diastolic blood pressure Systolic blood pressure Diastolic blood pressure Provider Name and Address Organization Details Last Updated DateTime 09/21/2021 138 mm[Hg] 60 mm[Hg] 124 mm[Hg] 78 mm[Hg] Delia boyd MD Attn: Accounting ,[address] [place], [address] , [facility] 11:30:23 Date Recorded Body height Body mass index (BMI) Body weight Oxygen saturation Oxygen saturation in Arterial blood by Pulse oximetry Body temperature Heart rate Systolic blood pressure Diastolic blood pressure Provider Name and Address Organization Details Last Updated DateTime 1 165.1 cm 18.5 kg/m2 86912.8 5 g 99 % 99 % 97 [degF] 68 /min 140 mm[Hg] 70 mm[Hg] Jono Gunn MA [facility] 1 11:02:08 Date Recorded Systolic blood pressure Diastolic blood pressure Provider Name and Address Organization Details Last Updated DateTime 10/07/2021 132 mm[Hg] 70 mm[Hg] Delia Harry MD Attn: Accounting,[address] [place], [address], [facility] 10/07/2021 11:19:00 Date Recorded Body height Body mass index (BMI) Body weight Body temperature Oxygen saturation Oxygen saturation in Arterial blood by Pulse oximetry Heart rate Systolic blood pressure Diastolic blood pressure Provider Name and Address Organization Details Last Updated DateTime 2 165.1 cm 18.7 kg/m2 18473.1 g 97.8 [degF] 99 % 99 % 68 /min 122 mm[Hg] 72 mm[Hg] Gisselle Kenyon MA [facility] 2 15:51:39 Date Recorded Systolic blood pressure Diastolic blood pressure Provider Name and Address Organization Details Last Updated DateTime 01/20/2022 122 mm[Hg] 70 mm[Hg] Delia Harry MD Attn: Accounting,[address] [facility], [place], [address], [place] - [facility] 01/20/2022 16:41:10 Date Recorded Body height Provider Name an d Address Organization Details Last Updated DateTime 02/15/2022 165.1 cm Jono Gunn MA [facility] 02/16/20 22 11:35:56 Social History Question Answer Notes LastModified by Organizat ion Details LastModified Time Tobacco Smoking Status Never Smoker Felisa Thompson MA null, [facility] 10/27/2014 14:15:07 Do You Have An [...] completed Delia Harry MD Attn: Accounting,[address] [place], [address], [facility] 01/20/2022 16:49:09 Hep A, live attenuated 8 completed Delia Harry MD Attn: Accounting,[address] [place], [address], [facility] 01/20/2022 16:49:09 Hep B, adult 2 completed Delia Harry MD Attn: Accounting,[address] [facility], [place], [place], [address] [place] [address], [place] [facility] 01/20/2022 16:49:09 Hep B, adult 2 completed Delia Harry MD Attn: Accounting,[address] [facility], [place], [address] [place] [address], [place] [facility] 01/20/2022 16:49:09 Hep B, adult 2 completed Delia Harry MD Attn: Accounting,[address] [facility], [place], [address] [place] [address], [place] [facility] 01/20/2022 16:49:09 Influenza, high-dose, quadrivalent, PF 0 completed Delia Harry MD Attn: Accounting,[address] [facility], [place], [address] [place] [address], [place] [facility] 01/20/2022 16:49:09 zoster recombinant 0 completed Delia Harry MD Attn: Accounting,[address] [facility], [place], [address] [place] [address], [place] [facility] 01/20/2022 16:49:09 zoster recombinant 0 completed Delia Harry MD Attn: Accounting,[address] [facility], [place], [address] [place] [address], [place] [facility] 01/20/2022 16:49:09 COVID-19, mRNA, LNP-S, PF, 30 mcg/0.3 mL dose 1 completed Delia Harry MD Attn: Accounting,[address] [facility], [place], [address] [place] [address], [place] [facility] 01/20/2022 16:49:09 COVID-19, mRNA, LNP-S, PF, 30 mcg/0.3 mL dose 1 completed Delia Harry MD Attn: Accounting,[address] [facility], [place], [address] [place] [address], [place] [facility] 01/20/2022 16:49:09 COVID-19, mRNA, LNP-S, PF, 30 mcg/0.3 mL dose 1 completed Delia Harry MD Attn: Accounting,[address] [facility], [place], [address] [place] [address], [facility] 01/20/2022 16:49:09 Influenza, split virus, quadrivalent, preservative 1 completed Delia Harry MD Attn: Accounting,[address] [facility], [place], [address] [place] [address], [facility] 01/20/2022 16:49:09 Pneumococcal conjugate PCV 13 7 completed Not Available [facility] 12/07/2019 02:33:03 Tdap 3 completed Delia Harry MD Attn: Accounting,[address] [facility], [place], [address] [place] [address], [facility] 01/20/2022 16:49:09 pneumococcal polysaccharide PPV23 9 completed Not Available [facility] 12/07/2019 02:38:42 Tdap 5 completed Not Available [facility] 12/07/2019 02:43:45 typhoid, parenteral 8 completed Delia Harry MD Attn: Accounting,[address] [facility], [place], [address] [place] [address], [facility] 01/20/2022 16:49:09 Past Encounters Encounter ID Performer Location Encounter Start Date Encounter Closed Date Diagnosis/Indication Diagnosis SNOMED-CT Code Diagnosis ICD10 Code Diagnosis Note [id number] Virgen Tovar [facility] [address] [place] [address] 10/27/2014 14:00:52 10/27/2014 15:38:32 Headache 28878021 shi's poss r/t sinus--lauren l try to treat as such MMSE normal--di scussed concerns. Watch for increased signs. concern for excess gas--try probiotics or phazyme [id number] Virgen Serna [facility] [address] [place] [address] 07/23/2015 14:22:12 07/23/2015 16:35:05 Abdominal pain 10999976 some of sx seem to be reflux--wi ll treat w/ otc Nexium--sa mples given for 1 wk watch what she eats Constipation 43227514 st art Psyllium daily plus Probiotics cont colase--se e if correcting constipati on makes he feel better consider CT of Abd/pelvis if not better in 2 wks Fatigue 47393018 lab soon--chp and Vit D [id number] Delia Teddy [facility] [address] [place] [address] 11/09/2015 15:12:33 11/09/2015 16:24:15 Adult health examination 676986458 Z00.00 reviewed healthy lifestyle cont reg activity/ good diet Epigastric pain 60759556 R10.13 will check Hpylori back on PPI-- diet as solange [id number] [address] [address] 08/02/2016 15:15:05 08/15/2016 13:13:37 Fatigue 19023341 R53.83 will check lab. reviewed diet. cont Vit B compex. reviewed meds from GI--need notes. [id number] [facility] Teddy [address] [address] 11/29/2016 14:53:52 12/20/2016 16:12:25 Adult health examination 381317340 Z00.00 reviewed healthy lifestyle. discussed issues of memory. discussed balance/di zziness. Balance exercise handout. pt will schedule her awn mamm/bone dens Osteoporosis 26714281 M8 1.0 get bone density Shoulder joint pain 2679 23920 M25.519 reviewed notes from ORTHO--con sidering surg--disc ussed. cont ROM exercises Neuropathy 498467395 G62 .9 try B complex. good supporting shoes Ganglion cyst 29229412 M 67.40 believe lumps in hands are ganglion cysts--jeronimo cts not to do anything right now--will watch [id number] [facility] [address] [address] 12/21/2016 09:33:58 01/20/2017 10:32:26 Osteoporosis 04797029 M81.0 reviewed bone density--r eally needs to be treated. info given on Reclast and Prolia--wi ll research them and get back to us. cont Ca++ w/ D Mammography abnormal 168 451997 R92.8 reviewed Mamm--need s Dx on L History of cerebrovascular accident without residual deficits 278310569 Z86.73 reviewed hosp records. she will cont w/ daily asa and statin as solange. s/w reluctant to take but will try to take 3 x wk at least. questions if some of sx were from dehydratio n--make sure she keeps hydrated. has May appt w/ spec. at [place]--wi keep [id number] Marco Granados MD [address] [address] 04/11/2017 09:56:57 04/19/2017 11:06:16 Dizziness 925959667 R42 Check labs. Boost samples. Hand pain 38512837 M79.6 42 Check labs. [id number] Marco Granados MD [address] [address] 04/25/2017 09:53:39 05/01/2017 12:14:10 Hypothyroidism 80704187 E03.9 Hyperlipidemia 07711590 E78.5 Cerebrovas cular accident 603471538 I63.9 Dizziness 413756823 R42 Better with meclizine prn. Osteoarthritis 037906945 M19.90 Taking celebrex once daily, as needed, and helping a lot. Vitamin D deficiency 347 31112 E55.9 Low normal, continue vit d supplement ation, take with beneficial fats like coconut oil to help improve absorption . [id number] Marco Granados MD [address] [address] 08/25/2017 14:03:08 09/04/2017 16:22:50 Cerebrovascular accident 416004622 I63.9 One year in Nov 2017. Hypothyroidism 07530031 E03.9 Hyperlipidemia 24000275 E78.5 Osteoporosis 55228211 M8 1.0 Per DEXA scan done in 12/06, then she had one again in 07/06, shows improvemen t in T scores after being on OTC ca and vit d, continue. Fatigue 41886209 R53.83 Could be manifestat ion of depression , labs all rad normal. Unlikely to be sleep apnea. Will try low dose sertraline to see whether that helps. Lives by self, she never , never had kids. Shoulder pain 81547993 M 25.511 Chronic low back pain 27 2011924 M54.5 [id number] Marco Granados MD [facility] [address] [place] [address] 10/17/2017 10:19:55 10/25/2017 16:04:35 Cerebrovascular accident 181180154 I63.9 One year in Nov 2017. Arthritis 4947383 M19.90 Hypothyroidism 02202030 E03.9 Hyperlipidemia 31626497 E78.5 Osteoporosis 03383154 M8 1.0 Per DEXA scan done in 12/06, then she had one again in 07/06, shows improvemen t in T scores after being on OTC ca and vit d, continue. Depressive disorder 3548 9007 F32.89 Continue sertraline . Synovial c yst of popliteal space 92128228 M71.22 Will try oral steroids, if no help, may need orthopedic referral later. Aphthous u lcer of mouth 437143973 K12.0 [id number] Marco Granados MD [facility] [address] [place] [address] 12/22/2017 15:38:41 12/26/2017 14:40:05 Complaining of - postnasal drip 426694065 R09.82 Eczema 02292834 L30.9 [id number] Delia Harry MD [facility] [address] [place] [address] 05/14/2018 12:03:02 05/15/2018 09:07:40 Hypothyroidism 50547308 E03.9 to have lab check in July and follow up in the beginning of August Adult [facility] examination 348455200 Z00.00 healthy and appropriat e-- risk for CVD with prior stroke History of cerebrovascular accident 045911415 Z86.73 I advised she take ASA 81 mg daily Hyperlipidemia 30407551 E78.5 I advised to decrease the atorvastat in ot M-W- since last lipids were exceptiona l and she is considerin g stopping med since she is opposed to taking meds in principal Chronic hoarseness 83040 82366 105 R49.0 I advised she try the nasal steroid daily for at least a month to treat the hoarseness -- probably related to PND. I did not see PND on exam -- she had seen ENT in the past [id number] Sana saunders [facility] [address] [place] [address] 08/17/2018 09:50:36 08/17/2018 12:50:26 Hypothyroidism 16183151 E03.9 to have lab check in July and follow up in the beginning of August Hyperlipidemia 55817017 E78.5 I advised to decrease the atorvastat in ot -- since last lipids were exceptiona l and she is considerin g stopping med since she is opposed to taking meds in principal Fatigue 28355605 R53.83 [id number] Delia Harry MD [facility] [address] [place] [address] 08/21/2018 10:14:53 08/22/2018 09:44:10 Hypothyroidism 27299993 E03.9 lab reviewed and copy to patient-- stable Hyperlipidemia 65814834 E78.5 I advised to continue the atorvastat in on Degenerati ve joint disease involving multiple joints 256825025 M15.9 consider surgical correction of the right shoulder-- letter for patient to continue with exercise program-- like [place] Senile osteopenia 491297 06 M85.80 wants a letter for exercise program coverage since not covered with her health insurance Total bili lee above reference range [id number] 75025 R17 this is stable for patient-- no further evaluation needed-- likely Gilbert's [id number] Delia Harry MD [facility] [address] [place] [address] 03/05/2019 09:08:10 03/05/2019 13:45:12 Hyperlipidemia 57982253 E78.5 no lipids added since doing well with chol checked at [facility] Abdominal pain 44877119 R10.9 no additional fiber tables and NO DAIRY for one month. You jeramie contin wit the PROBIOTIC and STOOL SOFTNER at this time. Likely IBS. You will call in a month for prescripti on trial of BENTYL if not better wtih dairy eliminatio n Degenerati ve joint disease involving multiple joints 502055712 M15.9 the arthritis lauren likely trigger intermitte nt pain-- stay active and note that inactivity does lead to greater pain and stiffness. Hypothyroidism 68865555 E03.9 lab reviewed and copy to patient-- stable Long-term drug therapy 187844014 Z79.593 [id number] Delia Harry MD [facility] [address] [place] [address] 08/05/2019 12:15:58 08/05/2019 14:53:26 Mass of right breast 7628480569 8678261 N63.10 I recommend a visit with Dr Whyte and to have [id number] Delia Harry MD [facility] [address] [place] [address] 09/03/2019 09:19:54 09/03/2019 11:31:36 Degenerative joint disease involving multiple joints 123463608 M15.9 the arthritis lauren likely trigger intermitte nt pain-- stay active and note that inactivity does lead to greater pain and stiffness. 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 She does not want to start any new medication s and would like to wait til after the surgery to think about therapy. She has a strong support system and has been talking with them to help cope Influenza vaccination declined 613152026 Z28.21 discussed and refused [id number] Delia Harry MD [facility] [address] [place] [address] 11/12/2019 09:23:22 11/12/2019 12:16:09 Postmenopausal osteoporosis 137726045 M81.0 I would suggest RECLAST generic-- if affordable from [facility]- let me know Influenza vaccination declined [id number] Z28.21 discussed and refused [id number] Delia Harry MD [facility] [address] [place] [address] 03/11/2020 11:54:30 03/11/2020 14:37:16 Hypothyroidism 29831571 E03.9 lab reviewed form 04/2019 -- stable-- will need retesting then-- unless test done per memory evaluation protocol Poor short -term memory 943030721 R41.3 memory referral per patient request Constipation 31861549 K5 9.00 management discussed and diet likely trigger-- since better through and worse since -- mainstay of treatment- - MIRALAX-- every day-- dose increase to TID until stools are soft / renewal of daily BMs [id number] Delia Harry MD [facility] [address] [place] [address] 03/26/2020 10:44:40 03/27/2020 12:02:04 Photodermatitis due to sun 636174497 L56.2 OK to use HYDROCORTI SONE 1% three times a day-- try this for a week and if not better-- call of see Dermatolog ist if not better. OK to use benedryl pill form-- not cream--at bedtime for itching [id number] Delia Harry MD [facility] [address] [place] [address] 08/17/2020 14:01:37 08/17/2020 18:21:15 Paresthesia of lower extremity 472975819 R20.2 this may be a side effect related to the anastrazol e but the benefit outweighs this as a risk-- I would recommend continuing treatment Degenerati ve joint disease involving multiple joints 296831995 M15.9 Long-term drug therapy 237481866 Z79.899 if the lab testing is negative-- will need to X RAY the areas of pain Hypothyroidism 75430331 E03.9 lab reviewed -- will need retesting tomorrow History of malignant neoplasm of breast 791780719 Z85.3 [id number] [place] [address] [place] [address] 11/09/2020 10:51:32 11/09/2020 15:53:09 Paresthesia of lower extremity 008257285 R20.2 again , this may be a side effect related to the anastrazol e but the benefit outweighs this as a risk-- I would recommend continuing treatmentb 12 and folate normal Dupuytren' s disease of palm 183012379 M72.0 seeing hand surgeon [id number] Delia Harry MD [place] [address] [place] [address] 01/19/2021 09:02:09 01/20/2021 12:00:02 Acute low back pain 452165059 M54.5 I advise to get the XRAYs completed and will make plans pending outcome Pain in ri ght hip joint [id number] 59808 M25.551 xray ordered and patient to pospone any nerve testing until after the xrays-- the feet numbness persists and the testing was not completed in Nov as scheduled originally due to a lost order at [facility]-- if retesting advised-- she wants to have the test done elsewhere [id number] Delia Harry MD [place] [address] [facility] [address] [facility] [place] [address] 04/09/2021 13:29:49 04/12/2021 12:31:11 Acute stress disorder 35734043 F43.0 I offered counseling or assisted and declined-- she agrees to start low dose sertraline and follow up in one month for reassessme nt to see if med change or dose adjustment will be needed [id number] Delia Harry MD [facility] [address] [facility] [address] [place] [address] 04/27/2021 14:21:44 04/28/2021 14:58:42 Long-term drug therapy 979802705 Z79.899 if the lab testing ordered since new start AKIL inhibitor. Will get records from [place] ER visits Acute stress disorder 67 129114 F43.0 I offered counseling or assisted and declined-- she agrees to increase the dose sertraline since still worrying and not herself and troubled with sleeping. She is to follow up in one month for reassessme nt to see if med change or dose adjustment will be needed Benign ess ential hypertension 8953864 I10 no dose change in LISINOPRIL and will re-evaluat e in one week-- will get the reports from the ER [id number] Delia Hrary MD [facility] [address] [facility] [address] [place] [address] 05/20/2021 08:56:53 05/20/2021 16:13:55 Acute stress disorder 90037185 F43.0 she is feeling better and she agrees to taper the dose sertraline -- I advised 25 mg daily for another week ( started taper on 05/12 per patient case)-- and then take 25 mg every other day for 14 days-- then stop. If anxiety increases- - she will contact office to restart sertraline 25 mg daily Hypothyroidism 88632159 E03.9 lab reviewed -- will need retesting tomorrow [id number] Delia Harry MD [facility] [address] [facility] [address] [facility] [place] [address] 09/21/2021 10:30:29 09/21/2021 15:49:44 Benign essential hypertension 5976945 I10 dose change in LOSARTAN to 50 mg and will re-evaluat e in two weeks Generalize d anxiety disorder 01305454 F41.1 I advised her to cont taking sertraline for at least 6 weeks to evaluate it's effect on anxiety-- do not stop taking this med-- and take it daily Osteoporosis 22288170 M8 1.0 [facility] plans to stop taking RECLASt-- will need to re-evaluat e with DEXA to reassess bone density ( last check was Oct 2019) [id number] Delia Harry MD [facility] [address] [facility] [address] [facility] [place] [address] 10/07/2021 10:47:59 10/08/2021 10:45:26 Acute stress disorder 94963269 F43.0 she is feeling better and she agrees to taper the dose sertraline - now to start sertraline 25 mg daily. Follow up in 3 mo with plan to transition off med if continues to improve with adjustment disorder Benign ess ential hypertension 6252386 I10 advised no dose change in LOSARTAN 50 mg and will re-evaluat e with plan to change in 3 months back to 25 mg daily if BP well controlled -- <150/>90-- goal 130/80. No interest in lowering BP less than 100 systolic Adjustment disorder with anxious mood 53286944 F43.22 she is feeling better and she agrees to taper the dose sertraline - now to start sertraline 25 mg daily. Follow up in 3 mo with plan to transition off med if continues to improve with adjustment disorder [id number] Delia Harry MD [facility] [address] [place] [address] 01/20/2022 15:38:29 01/21/2022 14:29:02 Essential hypertension 76416525 I10 no change in the dose of the LOSARTAN 100 mg dialy due to max benefit after 14 days of this current dose-- will reassess after co nt to take and record home BP readingsho me monitor was tested today and accuracy was very goodI advised ER follow up with cardiologi st at [place] and I advised Dr Alta Santamaria-- she has name and contact informatio n and prefers to set up appointmen t with cardiologi st herself Hyponatremia 93670948 E8 7.1 follow up from ER sodium of 131 needed Unsteady when walking 22 105291 R26.89 cause not clear---ab le to walk outdoors with her sister for exercise [id number] Delia Harry MD [facility] [address] [facility] [place] [address] 02/15/2022 09:55:49 02/15/2022 17:43:50 Essential hypertension 88195749 I10 cont to take and record home BP readingsco nt with the carvedilol 6.25 mg BID ( instead of cutting dose in 11/21)cont home monitor was tested today and accuracy was very goodget up slowlydrin k plenty of fluidssee cardiologi st as arranged in a week Acute stress disorder 67 617178 F43.0 she is feeling better Follow up in 3 mo with plan to transition off med if continues to improve with adjustment disorder Hyponatremia 26159005 E8 7.1 improving and electrolyt es reviewed [...] 2 [employer] [place] (MEDICARE SUPPLEMENT) PLAN N Vanda Blancas [id number] Vanda Blancas 05/20/2021 2 [place] Vanda Blancas [id number] Vanda Blancas 09/21/2021 2 [employer] [place] (MEDICARE SUPPLEMENT) PLAN N Vanda Blancas [id number] Vanda Blancas 09/21/2021 2 [place] Vanda Blancas [id number] Vandacody Blancas 10/07/2021 2 [employer] [place] (MEDICARE SUPPLEMENT) PLAN N Vanda Blancas [id number] Vanda Blancas 10/07/2021 2 [place] Vanda Blancas [id number] Vandacody Blancas 01/20/2022 2 [place] Vanda Blancas [id number] Vanda Blancas 01/20/2022 1 [facility] (MEDICARE REPLACEMENT/AD VANTAGE - HMO) [id number] Vanda Annie Echevarriaada [id number] Vanda Swathiada 02/15/2022 1 [facility] (MEDICARE REPLACEMENT/AD VANTAGE - HMO) [id number] Vanda Annie Blancas [id number] Vandacody Blancas Notes Date Note Type Note [...] visit. Delia Harry MD Attn: Accounting,[address] [place], [address], [facility] 05/20/2021 13:24:39 1 text/html Hypertension F/UReported bypatient.Associated [...] f/u Delia Harry MD Attn: Accounting,[address] [facility], [place], [address], [facility] 09/21/2021 13:20:02 1 text/html Hypertension F/UReported bypatient.Associated [...] worse Delia Harry MD Attn: Accounting,[address] [place], [address], [facility] 10/07/2021 19:07:54 2 text/html Hypertension F/UReported bypatient.Associated [...] done Delia Harry MD Attn: Accounting[address] [place], [address], [facility] 01/20/2022 22:51:36 2 text/html Hypertension F/UReported bypatient.Associated Symptoms:no shortness of breath; no edema;dizziness;lighthead edness;chest pain(tightness); pt states that sometimes when standing up she has to move around a little to get stabilized, she will see oil pit attendant 02/22/22 Lifestyle:regular exercise; exercises 7 times/week; exercises for 15-20 minutes/day Medications:taking medications as directed;side effects from medications(numbness hand new med); checks blood pressure at home, range:Notes:no answer at 12:15 pmcalled back for appointmentplans to see Dr. Macias next [id number] /[id number] thinks she is go over test results. Delia Harry MD Attn: Accounting,[address] [place], [address], [facility] 02/15/2022 13:47:36 OBGyn Episode No OBEpisode recorded.
--- OUTSIDE RECORDS SUMMARY | 2025-02-26 13:36 | XMS_ITS | Encounter Summary ---
Author Organization [facility] Facility Care Team Providers Care Film Mounter Name Role Phone Delia Harry MD Primary Care Provider [phone] Ysabel Winters MD Primary Care Provider [phone] Jacey Handley MD Primary Care Provider [phone] Elijah Palumbo MD Unavailable [phone] Truman Dillon MD Unavailable [phone] Davin Madsen MD Unavailable [phone] Encounter Details Date Type Department Care Team (Latest Contact Info) Description 10/17/2018 Orders Only [facility] CLINCONV ProviderRobert MD [address] [place], [place] [id number] Social History Tobacco Use Types Packs/Day Years Used Date Smoking Tobacco: Never Alcohol Use Standard Drinks/Week Comments Yes 0 (1 standard drink = 0.6 oz pur e alcohol) Comments Unknown Sex and Gender Information Value Date Recorded Sex Assigned at Not on file Legal Sex Female 1:15 AM HEALTH RECORDS TECHNOLOGY TEACHER Gender Identity Female 10/30/2020 9:29 PM HEALTH RECORDS TECHNOLOGY TEACHER Sexual Orientation Straight 10/30/2020 9: 29 PM HEALTH RECORDS TECHNOLOGY TEACHER documented as of this encounter Plan of Treatment Not on file documented as of this encounter Procedures Procedure Name Priority Date/Time Associated Diagnosis Comments PROCEDURE - RESULT 10/17/2018 12 :00 AM HEALTH RECORDS TECHNOLOGY TEACHER documented in this encounter Results * PROCEDURE - RESULT (10/17/2018 12:00 AM HEALTH RECORDS TECHNOLOGY TEACHER) Narrative 10/17/2018 12:00 AM HEALTH RECORDS TECHNOLOGY TEACHER Ordered by an unspecified provider. us Historical Provider Final Res ult documented in this encounter Visit Diagnoses Not on filedocumented in this encounter Care Teams Film Mounter Relationship Specialty Start Date End Date Delia Harry MD [address] [facility] [address] [place] [address] PCP - General 01/18/19 12/06/20 Ysabel Winters MD [address] [facility] [address] [place] [address] PCP - General 12/07/20 12/07/22 [place] [address] PCP - General Internal Medicine 12/08/22 Elijah Palumbo MD [address] [place] [address] Referring Physician Gastroenterology 07/11/24 Truman Dillon MD [phone] [place] [address] Surgeon Colon and Rectal Surgery 07/23/24 Davin Madsen MD [address] [facility] [address] [place] [address] Customer Business Manager Gastroenterology 07/23/24 documented as of this encounter
--- OUTSIDE RECORDS SUMMARY | 2025-02-26 13:36 | XMS_ITS | Clinical Summary ---
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 Stiffness of shoulder [...] on file Legal Sex Female 1:15 AM STARTING GATE DRIVER Gender Identity Female 10/30/2020 9:29 PM STARTING GATE DRIVER Sexual Orientation Straight 10/30/2020 9: 29 PM STARTING GATE DRIVER Obstetrics History Last Filed Vital Signs Vital [...] 1940 Well Visit 65+ 02/20/2005 Covid-19 Vaccine ( - 2023-2 5 season) 2024 09/01/2021, 01/15/2021, 12/25/2020 Influenza Vaccine (Season Ended) 2025 09/03/2022, 11/18/2021, 09/23/2020, Additional history exists Osteoporosis Screening-Bone Density Scan 01/01/2026 01/01/2024, 11/23/2023, 11/23/2023, Additional history exists DTaP/Tdap/Td Vaccine (4 - Td or Tdap) 07/21/2032 07/21/2022, 11/09/2015, 05/06/2003, Additional history exists Hepatitis B Screening Completed 09/23/2002 , 04/23/2002, 03/21/2002 Pneumococcal vaccine 65+ Completed 019, 11/29/2016, 11/19/2004 Zoster Vaccine Completed 10/26/2020, 01/2020, 10/16/2020, Additional history exists Medical Devices Implanted Type Area Tool Crib Lead Device Identifier Shelf Expiration Date Model / Serial / Lot Shoulder Replacement Right: Shoulder Procedures Procedure Name Priority Date/Time Associated Diagnosis Comments DEXA TBS AXIAL SKELETON BONE DENSITY 1 OR MORE SITES Schedule Routine, Read Routine (OP Routine) 01/01/2024 12:40 PM STARTING GATE DRIVER Osteoporosis, unspecified osteoporosis type, unspecified pathological fracture presence from Last 3 Months or Most Recently Relevant to Health Maintenance Results * Dexa TBS Axial Skeleton Bone Density 1 or more sites (01/01/2024 12:40 PM STARTING GATE DRIVER) Anatomical Region Laterality Modality Wrist, Body N/A Radiographic Daksha ging Narrative 01/03/2024 11:35 AM STARTING GATE DRIVER Patient Name: Rey Blancas Date of : 1940 Date of scan: 01/01/2024 Bone mineral density was performed on a [employer] Discovery Densitometer. Based on machine cross-calibration and [...] by the International Society of Clinical Densitometry. [id number] Ayo Julien MD IMG DXA PROCEDURES Final Result from Last 3 Months or Most Recently Relevant to Health Maintenance Insurance [facility] MEDICARE ADVANTAGE [facility] MEDIC[facility] Address: [facility] [address] [place] [address] [facility] MEDICARE ADVANTAGE [facility] MEDIC[facility] Address: [address] [address] [place] [address] [facility] MEDICARE ADVANTAGE [facility] MEDIC[facility] Address: [address] [address] [place] [address] Advance Directives For more information, please contact: [phone] Documents on File Type Date Recorded Patient Laborer Laboratory Expl anation ADVANCE DIRECTIVE 10/02/2018 12:00 AM [facility] OF CORPORATE PILOT FINANCIAL/MEDICAL * Full Code (Latest Code Status on File) Date Activated Date Inactivated Comments 07/19/2019 10:55 AM 07/19/2019 6:45 PM Care Teams Ladle Repairman Relationship Specialty Start Date End Date [place] [address] PCP - General Internal Medicine 12/08/22 Elijah Palumbo MD [address] [place] [address] Referring Physician Gastroenterology 07/11/24 Truman Dillon MD [phone] [place] [address] Surgeon Colon and Rectal Surgery 07/23/24 Davin Madsen MD [address] [facility] [address] [facility] [address] [place] [address] [employer] Specialist Gastroenterology 07/23/24
--- OUTSIDE RECORDS SUMMARY | 2025-02-26 13:36 | XMS_ITS | Encounter Summary ---
Author Organization [facility] Address [address] [place] [address] Phone Care Team Providers Care Accountant Manager Name Role Phone Delia Harry MD Primary Care Provider [phone] Everett Arriaga MD Unavailable [phone] Jacey Handley MD Primary Care Provider [phone] Reason for Visit * Reason Comments Medication Refill Encounter Details Date Type Department Care Team (Late st Contact Info) Description 10/21/2021 Refill [facility] [address] [address] Everett Arriaga MD [address] [place] [address] Medication Refill Social History Tobacco Use [...] Everett Arriaga MD - 10/22/2021 10:42 AM ANESTHESIA TECHNICIAN Ok to fill THESIA TECHNICIAN * Telephone Encounter - Ruperto Olivarez RN - 10/22/2021 10:27 AM CST Refill request from pharmacy. Refill if appropriate. THESIA TECHNICIAN documented in this encounter Plan of Treatment Upcoming Encounters Date Type Department Care Team (Late st Contact Info) Description 02/28/2025 10:15 AM CDT Lab [facility] [address] [phone] Lab, [facility] 02/28/2025 11:00 AM CDT Ancillary Procedure [facility] [address] [phone] 02/28/2025 11:30 AM CDT Office Visit [facility] [address] [phone] Everett Arriaga MD [address] [place] [phone] documented as of this encounter Visit Diagnoses Diagnosis 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, estrogen receptor positive (HCC) Other osteoporosis, unspecified pathological fracture presence documented in this encounter Additional Health Concerns Assessment Noted Time PHQ-9 Depression Total Score: 1 01/13/20 21 3:49 PM ANESTHESIA TECHNICIAN documented as of this encounter Care Teams Accountant Manager Relationship Specialty Start Date End Date Delia Harry MD [address] [address] PCP - General Family Medicine 08/13/19 08/16/22 [place] [address] PCP - General Internal Medicine 08/18/22 Everett Arriaga MD [address] [place] [address] Consulting Physician Oncology 10/20/20 documented as of this encounter
--- OUTSIDE RECORDS SUMMARY | 2025-02-26 13:36 | XMS_ITS | Clinical Summary ---
Author Organization [facility] Address [address], [facility] [address] [place] [address] Phone Care Team Providers Care Catheterization Laboratory Technician Name Role Phone Everett Arriaga MD Unavailable [phone] Jacey Handley MD Primary Care Provider [phone] Allergies Active Allergy Reactions Criticality Noted Date [...] Lnp-s, Pf, 3 0 Mcg/0.3 Ml Dose (Telemedicine Clinic) 01/15/2021,12/25/2020 Hepatitis A Vaccine 06/25/2019,03/19/2018 Hepatitis A, [...] CDT Lab [facility] [address] [address] Lab, [facility] 02/28/2025 11:00 AM CDT Ancillary Procedure [facility] [address] [address] 02/28/2025 11:30 AM CDT Office Visit [facility] [address] [phone] Everett Arriaga MD [address] [place] [address] Health Maintenance Due Date Last Done Comments Hepatitis C Virus (HCV) Screening 1940 Discussion re Stopping Mammograms 02/20/2015 Influenza Immunization (#1) 07/21/202408/20, 11/18/2021, 11/18/2021, Additional history exists SARS-COV-2 Immunization ( season) [...] Procedure Name Priority Date/Time Associated Diagnosis Comments [facility] BONE DENSITOMETRY AXIAL SKELETON Routine 11/23/2023 9:58 AM GUN TESTER Encounter for monitoring aromatase inhibitor therapy from Last 3 Months or Most Recently Relevant to Health Maintenance Results * GLORIA BONE DENSITOMETRY AXIAL SKELETON (11/23/2023 9:58 AM GUN TESTER) Anatomical Region Laterality Modality BODY N/A Other Narrative 11/23/2023 11:24 AM GUN TESTER EXAMINATION: [facility] BONE DENSITOMETRY AXIAL SKELETON INDICATIONS: [...] Signature: 11/23/2023 11:24:30 us Emma Martínez APRN, SPECIAL EDUCATION INCLUSION TEACHER IMG DEXA ORDERABL ES Final Result from Last 3 Months or Most Recently Relevant to Health Maintenance Insurance MEDICARE C [facility] Care Teams Catheterization Laboratory Technician Relationship Specialty Start Date End Date Jacey Handley MD [address] [facility] [place] [address] PCP - General Internal Medicine 08/18/22 Everett Arriaga MD [address] [place] [address] Consulting Physician Oncology 10/20/20
== END 2025-02-26 12:12 | disposition home or self-care (01) ==
LOC: ANHLAB 12:14
PROVIDERS: PCP Nurse Practitioner Family; Visit Provider Internal Medicine Nephrology
DX: R82.81 Pyuria (principal); R30.0 Dysuria
CPT/HCPCS: 81003; 87086

== ENCOUNTER 2025-04-18 11:03 | Outpatient (CLI) | payer MEDICARE, SELFPAY ==
--- NOTE | ~2025-04-18 | CT_ITS ---
CT sinus wo con Ordering provider: Richard Ayon, History: . CHRONIC SINUSITIS . Comparison: December 18, 2024 Technique: Thin slice Scans CT of the paranasal sinuses was performed with coronal and sagittal refor matted images. No IV contrast. . Automated exposure control and iterative reconstruction technique w ere employed. The dose-length product was 175.96 mGy-cm. Findings: NASAL SEPTUM: Mild left nasal septal deviation. OSTEOMEATAL UNITS: Bilaterally patent. NASAL TURBINATES AND NASOPHARYNX: Normal. PARANASAL SINUSES: Right maxillary sinus disease. Minimal right ethmoid sinus disease.. VISUALIZED MASTOIDS: Normal as visualized. BONES: Normal. SUPERFICIAL SOFT TISSUES/VISUALIZED BRAIN PARENCHYMA: Normal. IMPRESSION: Minimal right midzone and ethmoid sinus disease. Mild left nasal septal deviation. Reviewed, dictated and finalized at location A.
--- OUTSIDE RECORDS SUMMARY | 2025-04-18 11:17 | XMS_ITS | Clinical Summary ---
Author Organization [facility] Address [address] [place] [address] Care Team Providers Care Direct Customer Service Representative Name Role Phone Jacey Handley MD Primary Care Provider [phone] Elijah Palumbo MD Unavailable [phone] Turman Dillon MD Unavailable [phone] Davin Madsen MD Unavailable Allergies Active [...] (KENALOG) 0.1 % cream 1 Active zoledronic fhzp-zgkbzuxH-w ater (RECLAST) 5 mg/100 mL piggyback 2 [...] (07/16/2019): Added automatically from request for surgery [id number] 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 Stiffness of shoulder [...] on file Legal Sex Female 1:15 AM SALES ORDER SPECIALIST Gender Identity Female 10/30/2020 9:29 PM SALES ORDER SPECIALIST Sexual Orientation Straight 10/30/2020 9: 29 PM SALES ORDER SPECIALIST Obstetrics History Last Filed Vital Signs Vital [...] 9:13 AM CDT Height 161.3 cm (5' 3.5) 07/23/2024 9:13 AM CDT Body Mass Index [...] history exists Medical Devices Implanted Type Area Vice President Network Development Device Identifier Shelf Expiration Date Model / Serial / Lot Shoulder Replacement Right: Shoulder Procedures Procedure Name Priority Date/Time Associated Diagnosis Comments DEXA TBS AXIAL SKELETON BONE DENSITY 1 OR MORE SITES Schedule Routine, Read Routine (OP Routine) 01/01/2024 12:40 PM SALES ORDER SPECIALIST Osteoporosis, unspecified osteoporosis type, unspecified pathological fracture presence from Last 3 Months or Most Recently Relevant to Health Maintenance Results * Dexa TBS Axial Skeleton Bone Density 1 or more sites (01/01/2024 12:40 PM SALES ORDER SPECIALIST) Anatomical Region Laterality Modality Wrist, Body N/A Radiographic Daksha ging Narrative 01/03/2024 11:35 AM SALES ORDER SPECIALIST Patient Name: Rey Blancas Date of : 1940 Date of scan: 01/01/2024 Bone mineral density was performed on a HoloAlere Discovery Densitometer. Based on machine cross-calibration and [...] by the International Society of Clinical Densitometry. [id number] Ayo Julien MD IMG DXA PROCEDURES Final Result from Last 3 Months or Most Recently Relevant to Health Maintenance Insurance [facility] ADVANTAGE [facility] AD[facility]AGE Advance Directives For more information, please contact: [phone] Documents on File Type Date Recorded Patient Career Services Representative Expl anation ADVANCE DIRECTIVE 10/02/2018 12:00 AM [facility] ER OF EDUCATION DEPARTMENT CHAIR FINANCIAL/MEDICAL * Full Code (Latest Code Status on File) Date Activated Date Inactivated Comments 07/19/2019 10:55 AM 07/19/2019 6:45 PM Care Teams Direct Customer Service Representative Relationship Specialty Start Date End Date Jacey [place] [address] PCP - General Internal Medicine 12/08/22 Elijah Palumbo MD [address] [place] [address] Referring Physician Gastroenterology 07/11/24 Truman Dillon MD [phone] [place] [address] Surgeon Colon and Rectal Surgery 07/23/24 Davin Madsen MD [address] [facility] [address] [facility] [address] [place] [address] Regional Sales Consultant Gastroenterology 07/23/24
--- OUTSIDE RECORDS SUMMARY | 2025-04-18 11:17 | XMS_ITS | Clinical Summary ---
Author Organization [facility] Address [address] [place] [address] Phone Care Team Providers Care Car Construction Superintendent Name Role Phone Jacey Handley MD Primary Care Provider [phone] Allergies No known active allergies Medications acetaminophen [...] Comments Blood Pressure 128/70 11/09/2022 8:47 AM PERSONNEL INTERVIEWER Pulse 72 11/09/2022 8:47 AM PERSONNEL INTERVIEWER Temperature 35.3 C (95.5 F) 11/09/2022 8:47 AM PERSONNEL INTERVIEWER Respiratory Rate - - Oxygen Saturation - - Inhaled Oxygen Concentration - - Weight 50.3 kg (111 lb) 11/09/2022 8:47 AM PERSONNEL INTERVIEWER Height 165.1 cm (5' 5) 11/09/2022 8:47 AM PERSONNEL INTERVIEWER Body Mass Index 18.47 11/09/2022 8:47 AM PERSONNEL INTERVIEWER Plan of Treatment Health Maintenance Due Date Last Done Comments COVID-19 Vaccine ( season) 2024 09/01/2021, 01/15/2021, 12/25/2020 Influenza Vaccine (Season Ended) 2025 09/03/20 22 Pneumococcal PPSV23/PCV13 65 + Years / High and Highest Risk Completed 09/03/2019, 11/29/2016 Insurance [employer] MEDICARE Care Teams Car Construction Superintendent Relationship Specialty Start Date End Date Jacey Handley MD [address] [place] [address] PCP - General Internal Medicine 10/10/22
--- OUTSIDE RECORDS SUMMARY | 2025-04-18 11:17 | XMS_ITS | Encounter Summary ---
Author Organization [facility] Address [address] [place] [address] Phone Care Team Providers Care Hydrator Operator Name Role Phone Everett Arriaga MD Unavailable Jacey Handley MD Primary Care Provider [phone] Encounter Details Date Type Department Care Team (Late Contact Info) Description 08/12/2024 Telephone [facility] [address] [address] Everett Arriaga MD [address] [place] [address] Social History Tobacco Use Types Packs/Day [...] Department Care Team (Late Contact Info) Description 03/06/2026 10:45 AM CDT Lab [facility] [address] [address] Lab, [facility]c [facility] 03/06/2026 11:00 AM CDT Ancillary Procedure [facility] [address] [address] Elizabeth De Jesus APRN, FEATURE WRITER [address] [place] [address] [address] [place] [address] 03/06/2026 11:30 AM CDT Office Visit [facility] [address] [address] Everett Arriaga MD [address] [place] [address] documented as of this encounter Visit Diagnoses Not on filedocumented in this encounter Additional Health Concerns Assessment Noted Time PHQ-9 Depression Total Score: 1 01/13/20 21 3:49 PM LEAD ETL DEVELOPER documented as of this encounter Care Teams Hydrator Operator Relationship Specialty Start Date End Date Jacey Handley MD [address] [facility] [place] [address] PCP - General Internal Medicine 08/18/22 Everett Arriaga MD [address] [place] [phone] Consulting Physician Oncology 10/20/20 documented as of this encounter
--- OUTSIDE RECORDS SUMMARY | 2025-04-18 11:17 | XMS_ITS | Clinical Summary ---
Author Organization [facility] Address [address], [facility] [address] [place] [address] Phone Care Team Providers Care Spinner Open End Name Role Phone Everett Arriaga MD Unavailable [phone] Jacey Handley MD Primary Care Provider [phone] Allergies Active Allergy Reactions Criticality Noted Date [...] 08/15/2023 Active famotidine (PEPCID) 20 MG Tablet 40 mg. Active acetaminophen (TYLENOL) 500 MG Tablet Take 500 mg by mouth. Active docusate sodium (COLACE) 50 MG Capsule Take 50 mg by mouth. Active Simethicone (GAS RELIEF 80 PO) Take by mouth. Active polyvinyl alcohol (LIQUIFILM/MAURO FICIAL TEARS) 1.4 % Solution Place 1 Drop in affected eye(s) as needed. Active VITAMIN D PO Take by mouth. Active ASPIRIN PO Take by mouth. Active losartan (COZAAR) 100 MG Tablet Take 100 mg by mouth daily. 12/19/2024 Active amLODIPine (NORVASC) 5 MG Tablet Take 5 mg by mouth daily. 2025 Active hydrOXYzine (ATARAX) 10 MG Tablet 10 mg. 02/09/2025 Active tiZANidine (ZANAFLEX) 2 MG Tablet 2 mg 3 times daily. 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 Encounters Date Type Department Care Team Description 02/28/2025 11:30 AM CDT Office Visit [facility] [address] [address] Elizabeth De Jesus, HOTEL OR MOTEL RECEPTIONIST, MAINTENANCE DEPARTMENT MANAGER Intraductal papillary mucinous neoplasm (Primary Dx); 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, estrogen receptor positive (HCC); Other osteoporosis, unspecified pathological fracture presence; Encounter for screening mammogram for malignant neoplasm of breast 02/28/2025 11:00 AM CDT Ancillary Procedure [facility] [address] [address] Intraductal papillary mucinous neoplasm 02/28/2025 10:15 AM CDT Lab [facility] [address] [place] [address] Lab, [facility] Intraductal papillary mucinous neoplasm; Pancreatic neoplasm 02/28/2025 Travel 02/27/2025 Telephone [facility] [address] [address] Dora Nunez, HOTEL OR MOTEL RECEPTIONIST, MAINTENANCE DEPARTMENT MANAGER from Last 3 Months Immunizations Immunization Administration Dates Next Due Covid-19, Mrna, Lnp-s, Pf, 3 0 Mcg/0.3 Ml Dose (UmBio) 01/15/2021,12/25/2020 Hepatitis A Vaccine 06/25/2019,03/19/2018 Hepatitis A, [...] Answered Alcohol Use Standard Drinks/Week Comments Yes 2 (1 standard drink = 0.6 oz pur e alcohol) weekly PHQ-2 Answer Date Recorded Total Score - Questions 1-9 0 04/0 06/2022 Comments No Sex and Gender Information Value Date Recorded Sex Assigned at Not on file Legal Sex Female 3:04 PM CDT Gender Identity Not on file Sexual Orientation Not on file Last Filed Vital Signs Vital Sign Reading Time Taken Comments Blood Pressure 130/72 02/28/2025 11:45 AM CDT Pulse 71 02/28/2025 11:45 AM CDT Temperature 36.4 C (97.5 F) 02/28/2025 11:45 AM CDT Respiratory Rate 18 02/28/2025 11:45 AM CDT Oxygen Saturation 99% 02/28/2025 11:45 AM CDT Inhaled Oxygen Concentration - - Weight 51.3 kg (113 lb 3.2 oz) 02/28/2025 11:45 AM CDT Height 152.4 cm (5') 02/28/2025 11:45 AM CDT Body Mass Index 22.11 02/28/2025 11:45 AM CDT Plan of Treatment Upcoming Encounters Date Type Department Care Team (Late st Contact Info) Description 03/06/2026 10:45 AM CDT Lab [facility] [address] [phone] Lab, Cc [facility] 03/06/2026 11:00 AM CDT Ancillary Procedure [facility] [address] [phone] Elizabeth De Jesus, HOTEL OR MOTEL RECEPTIONIST, MAINTENANCE DEPARTMENT MANAGER [address] [place] [address] [address] [place] [address] 03/06/2026 11:30 AM CDT Office Visit [facility] [address] [phone] Everett Arriaga MD [address] [place] [phone] Health Maintenance Due Date Last Done Comments Hepatitis C Virus (HCV) Screening 1940 Discussion re Stopping Mammograms 02/20/2015 SARS-COV-2 Immunization ( season) 2024 09/01/2022, 05/09/2022, 09/01/2021, Additional history exists Td Immunization Every 10 Years (Adults With 1 Tdap) 11/09/2025 11/09/2015, 05/06/2003, 06/01/1998 DEXA Bone Density 11/23/2025 11/23/2023, , 10/25/2019 Mammogram 02/25/2026 02/25/2025, 04/06/2025, 02/13/2024, Additional history exists Hepatitis B Immunization Completed 002, 04/23/2002, 03/21/2002 DTaP/Tdap/Td Immunization Discontinued 2014, 05/06/2003, 06/01/1998 Pneumococcal Immunization (50+ years) Completed 09/03/2019, 11/29/2016 Pneumococcal Immunization Combined Discontinued 09/03/2019, 11/29/2016 Zoster Immunization Completed 10/26/2020, 10/22/2020, 10/16/2020, Additional history exists Respiratory Syncytial Virus (RSV) Immunization (Adult) Completed 11/29/2023 Influenza Immunization Completed , 09/03/2022, 11/18/2021, Additional history exists Human Papillomavirus (HPV) Immunization Aged Out No longer eligible based on patient's age to complete this topic Meningococcal Immunization (ACWY) Aged Out No longer eligible based on patient's age to complete this topic Rotavirus Immunization Aged Out No lo nger eligible based on patient's age to complete this topic Procedures Procedure Name Priority Date/Time Associated Diagnosis Comments CT ABDOMEN PELVIS W/ CONTRAST Routine 02/28/2025 11:35 AM CDT Intraductal papillary mucinous neoplasm BUN AND CREATININE [place] STAT 02/28/2025 10:18 AM CDT Intraductal papillary mucinous neoplasm Pancreatic neoplasm GLORIA BONE DENSITOMETRY AXIAL SKELETON Routine 11/23/2023 9:58 AM VIDEO TAPE EDITOR Encounter for monitoring aromatase inhibitor therapy from Last 3 Months or Most Recently Relevant to Health Maintenance Results * CT ABDOMEN PELVIS W/ CONTRAST (02/28/2025 11:35 AM CDT) Anatomical Region Laterality Modality Abdomen N/A Computed Tomogra phy Narrative 02/28/2025 11:40 AM CDT EXAMINATION: CT ABDOMEN PELVIS W/ CONTRAST N/A HPI: 85-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 Follow-up COMPARISON: Prior pertinent studies TECHNIQUE: Helical imaging of the abdomen and pelvis obtained with the intravenous administration of contrast. A dose lowering technique was used for this procedure, which may include, but is not limited to, dose reduction techniques, automated exposure controlled techniques, use of iterative reconstruction techniques, and ALARA or ALARA gently techniques. FINDINGS: LUNG BASES: No pulmonary nodules or masses are seen. No pleural fluid is identified. HEPATOBILIARY: The cystic mass of the pancreatic tail is re-identified. It presently is 13 x 15 mm. This is not significantly changed from the original examination of 07/05/2019. The cystic mass within the pancreatic head is 20 x 21 mm. This has increased in size. On the original examination it was 16 x 17 mm. There is enhancement of the capsule of this cystic mass. There are calcifications demonstrated as well. No developing pancreatic ductal dilatation is seen. The liver is homogeneous in attenuation. No suspicious hepatic lesions are seen. Gallbladder has a variation in its location. No gallstones or wall thickening is identified. :Adrenal glands normal size and morphology. The kidneys perfuse symmetrically. Simple renal cysts are seen. No solid renal masses are identified. The uterus has been removed GI: Large amount of stool seen throughout the colon. There is marked redundancy of the colon. No obstruction is seen. No free air or free fluid is identified LYMPHATICS: Spleen is normal size and morphology. No adenopathy is seen VASCULAR: Soft and calcific plaquing of the aorta is present without aneurysm. MUSCULOSKELETAL: No lytic or blastic lesions are seen. No destructive lesions are identified IMPRESSION Two separate cysts are seen within the pancreas. The cyst within the pancreatic head has increased in size compared to baseline. 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 A dose lowering technique was used for this procedure, which mayinclude, but is not limited to, dose reduction techniques, automatedexposure controlled techniques, use of iterative reconstructiontechniques, and ALARA or ALARA gently techniques. FINDINGS: LUNG BASES: No pulmonary nodules or masses are seen. No pleural fluid isidentified. HEPATOBILIARY: The cystic mass of the pancreatic tail is re-identified.It presently is 13 x 15 mm. This is not significantly changed from theoriginal examination of 07/05/2019. The cystic mass within the pancreatichead is 20 x 21 mm. This has increased in size. On the originalexamination it was 16 x 17 mm. There is enhancement of the capsule ofthis cystic mass. There are calcifications demonstrated as well. Nodeveloping pancreatic ductal dilatation is seen. The liver is homogeneous in attenuation. No suspicious hepatic lesionsare seen. Gallbladder has a variation in its location. No gallstones orwall thickening is identified. :Adrenal glands normal size and morphology. The kidneys perfusesymmetrically. Simple renal cysts are seen. No solid renal masses areidentified. The uterus has been removed GI: Large amount of stool seen throughout the colon. There is markedredundancy of the colon. No obstruction is seen. No free air or freefluid is identified LYMPHATICS: Spleen is normal size and morphology. No adenopathy is seen VASCULAR: Soft and calcific plaquing of the aorta is present withoutaneurysm. MUSCULOSKELETAL: No lytic or blastic lesions are seen. No destructivelesions are identified IMPRESSION Two separate cysts are seen within the pancreas. The cyst within thepancreatic head has increased in size compared to baseline. Electronically signed by: DALILA WESLEY MD Date of Signature: 02/28/2025 11:40:40 us Dora Nunez HOTEL OR MOTEL RECEPTIONIST, MAINTENANCE DEPARTMENT MANAGER IMG CT ORDERABLES Fin al Result * BUN AND CREATININE [place] (02/28/2025 10:18 AM CDT) Blood Urea Nitrogen 10 7 - 25 mg/dL [facility] Creatinine 0.7 0.6 - 1.2 mg/dL [facility] BUN/Creatinine Ratio 14.3 Ratio [facility] EGFR 85 >60 ml/min/1. 73m2 [facility] Comment: This eGFR is calculated using 2020 CKD-EPI Creatinine equation without race modifier based on the NKF-ASN task force recommendations Equation: uRLC=019*min(SCr/k,1)a*max(SCr/k,1)-1.200*0.9938Age*1.012 (if female), where SCr is serum creatinine, k is 0.7 for females and 0.9 for males, and a is -0.241 for females and -0.302 for males 02/28/2025 10:1 8 AM CDT Narrative [facility] - 02/28/2025 11:02 AM CDT Release to patient->Immediate Dora Nunez APRN, MAINTENANCE DEPARTMENT MANAGER LAB SEND OUTS Final Result [facility] [address] [place] [address], * [facility] BONE DENSITOMETRY AXIAL SKELETON (11/23/2023 9:58 AM VIDEO TAPE EDITOR) Anatomical Region Laterality Modality BODY N/A Other Narrative 11/23/2023 11:24 AM VIDEO TAPE EDITOR EXAMINATION: [facility] BONE DENSITOMETRY AXIAL SKELETON INDICATIONS: [...] LARES MD Date of Signature: 11/23/2023 11:24:30 Emma Martínez APRN, MAINTENANCE DEPARTMENT MANAGER IMG DEXA ORDERABL ES Final Result from Last 3 Months or Most Recently Relevant to Health Maintenance Insurance MEDICARE C [facility] Care Teams Spinner Open End Relationship Specialty Start Date End Date Jacey Handley MD [address] [facility] [place] [address] PCP - General Internal Medicine 08/18/22 Everett Arriaga MD [address] [place] [phone] Consulting Physician Oncology 10/20/20
--- OUTSIDE RECORDS SUMMARY | 2025-04-18 11:17 | XMS_ITS | Encounter Summary ---
Author Organization [facility] Address [address] [place] [address] Phone Care Team Providers Care Weight Recorder Name Role Phone Delia Harry MD Primary Care Provider [phone] Ysabel Winters MD Primary Care Provider [phone] Jacey Handley MD Primary Care Provider [phone] Elijah Palumbo MD Unavailable [phone] Truman Dillon MD Unavailable [phone] Davin Madsen MD Unavailable [phone] Reason for Visit * Reason Onset Date Comments Zoom invite 09/22/2020 1:44pm YR spoke with Ms. Blancas and set her up for testing 10/01/2020 10:00am Encounter Details Date Type Department Care Team (Late st Contact Info) Description 09/22/2020 Documentation [facility] [address] [place] [address] [address] Floor [address] [place] [address] Ewelina Fung CNA Zoom invite (1:44pm YR [...] on file Legal Sex Female 1:15 AM CARPENTRY SUPERVISOR Gender Identity Female 10/30/2020 9:29 PM CARPENTRY SUPERVISOR Sexual Orientation Straight 10/30/2020 9: 29 PM CARPENTRY SUPERVISOR documented as of this encounter Plan of Treatment Not on file documented as of this encounter Visit Diagnoses Not on filedocumented in this encounter Care Teams Weight Recorder Relationship Specialty Start Date End Date Delia Harry MD [address] [facility] [address] [place] [address] PCP - General 01/18/19 12/06/20 Ysabel Winters MD [address] [facility] [address] [place] [address] PCP - General 12/07/20 12/07/22 Jacey Handley MD [place] [facility] [place] [address] PCP - General Internal Medicine 12/08/22 Elijah Palumbo MD [address] [place] [address] Referring Physician Gastroenterology 07/11/24 Truman Dillon MD [phone] [place] [address] Surgeon Colon and Rectal Surgery 07/23/24 Davin Madsen MD [address] [facility] [address] [place] [address] Cardiograph Operator Gastroenterology 07/23/24 documented as of this encounter
--- OUTSIDE RECORDS SUMMARY | 2025-04-18 11:17 | XMS_ITS | Data Portability ---
Author Organization [facility] Address [address] [place] [address] Care Team Providers Care Metal Cleaner Name Role Phone KENNETH BOWLING OTHER SELINA LOWERY Medical Oncologist [phone] LUIS OTERO Business Analyst Ecommerce [phone] RENETTA HAMEED Nutritionalist MARTY MCAGRRY Call Center Support Representative Assessment Encounter Date Assessment Date Assessment LastModified by Organization Details LastModified Time 01/20/2022 01/20/2022 planning to transition to new PCP doctor after February 18 Not available 01/20/2022 16:48:38 Plan of Treatment Reminders Order Date Submit Date Provider Last Modified By Organization Details Last Modified Time Details Appointments None recorded. Lab BMP, serum or plasma 2021 [facility], [place], [address], 14:37:01 vitamin B12 + folate, serum or blood 2021 [facility], [place], [address], 10:37:47 Referral None recorded. Procedures None recorded. Surgeries None recorded. Imaging None recorded. Medication Orders sertraline 50 mg tablet 2021 [facility] [address] [place], [address], 13:46:13 carvedilol 6.25 mg tablet 2021 022 [facility] [address] [place], [address], 13:46:16 losartan 50 mg tablet [address] [facility] [address] [place], [address], 14:03:59 levothyroxi ne 75 mcg tablet 2020 021 [facility] [address] [place], [address], 13:23:45 Patient TargetsNo targets recorded. Patient Instructions Encounter Date Encounter Id Patient Instructions Last Modified By Organization Details Last Modified Time 05/20/2021 [id number] follow needed in January 2022 Not available 05/20/2021 13:24:06 01/20/2022 [id number] she is still planning to change to PCP close to where she currenly lives Not available 01/20/2022 22:50:10 Reason for Referral None Reported. Results Created Date Observation Date Name Description Value Unit Range Abnormal Flag Note LastModifiedBy Organization Detail LastModifiedTime 04/27/2004/28/2021 BMP, serum or plasm a glucose 122 mg/dL 65-99 above high normal Not Available [facility] ([facility]) [address] [place], [address], 04/28/2021 06:13:11 04/27/2004/28/2021 BMP, serum or plasm a BUN 8 mg/dL 8-27 Not Available [facility] ([facility]) [address] [place], [address], 04/28/2021 06:13:11 04/27/20 21 04/28/2021 BMP, serum or plasm a creatinine 0.88 mg/dL 0.57-1 .00 Not Available [facility] ([facility]) [address] [place], [address], 04/28/2021 06:13:11 04/27/20 21 04/28/2021 BMP, serum or plasm a eGFR if nonafricn AM 62 mL/mi n/1.7 3 >59 Not Available [facility] ([facility]) [address] [place], [address], 04/28/2021 06:13:11 04/27/20 21 04/28/2021 BMP, serum [...] SN Task force . Not Available [facility] ([facility]) [address] [place], [address], 04/28/2021 06:13:11 04/27/2004/28/2021 BMP, serum or plasm a BUN/creatini ne ratio 9 12-28 below low normal Not Available [facility] ([facility]) [address] [place], [address], 04/28/2021 06:13:11 04/27/2004/28/2021 BMP, serum or plasm a sodium 130 mmol/ L 134-14 4 below low normal Not Available [facility] ([facility]) [address] [place], [address], 04/28/2021 06:13:11 04/27/2004/28/2021 BMP, serum or plasm a potassium 4.5 mmol/ L 3.5-5. 2 Not Available [facility] ([facility]) [address] [place], [address], 04/28/2021 06:13:11 04/27/20 21 04/28/2021 BMP, serum or plasm a chloride 94 mmol/ L 96-106 below low normal Not Available [facility] ([facility]) [address] [facility], [place], [address], 04/28/2021 06:13:11 04/27/20 21 04/28/2021 BMP, serum or plasm a carbon dioxide, total 24 mmol/ L 20-29 Not Available [facility] ([facility]) [address] [facility], [place], [address], 04/28/2021 06:13:11 04/27/2004/28/2021 BMP, serum or plasm a calcium 9.6 mg/dL 8.7-10 .3 Not Available [facility] ([facility]) [address] [facility], [place], [address], 04/28/2021 06:13:11 04/28/20 21 04/20/2021 CT, brain , w/o contr ast No observ ation record ed. Not Available 2020 16:44:39 06/24/20 21 06/24/2021 CT, neck, soft tissu e, w/ contr ast No observ ation record ed. [email or web address] [facility] [address], [place], [address], 06/25/2021 15:48:59 07/05/20 21 mg diag W samreen bilat digi [facility] [address] [facility] [place] [address] This is a summar y report . The comple te report is availa ble in the patien t's medica l record . If you cannot access the medica l record , please contac t the sendin g organi zasean for a detail ed fax or copy. EXAMIN ATION: Digita l bilate ral diagno stic mammog asad with 3-D tomogr aphy ACCESS ION: [id number] EXAM DATE/T NNEKA: 9:56 AM REASON FOR EXAM: F/U Right breast cancer COMPAR ZHANE: 020, 019, 017, 2013 TECHNI QUE: Digita l diagno stic mammog jerica of both breast s was perfor med in additi on to 3-D Tomosy nthesi s techni que. This study was read with the assist ance of a Thoof er-aid ed detect ion system . TISSUE [...] reted By: Anthony Murphy MD, 10:24 AM [facility] [address], [place], [address], 07/05/2021 14:09:53 01/04/20 22 mg diag W samreen RT digi [facility] [address] [place] [address] This is a summar y report . The comple te report is availa ble in the patien t's medica l record . If you cannot access the medica l record , please contac t the debra harrison for a detail ed fax or copy. Examin ation: Digita l right diagno stic mammog asad with 3-D tomosy nthesi s Access ion: [id number] Exam Date/T nneka: 022 12:31 PM [...] read with the assist ance of a Thoof er-aid ed detect ion system . Tissue [...] By: Richmond henning MD, 022 12:55 PM [facility] [address], [place], [address], 01/06/2022 17:43:29 01/14/20 22 01/14/2022 XR, chest , 2 view No observ ation record ed. [address], [place], [address], 01/14/2022 14:58:43 Result Notes None recorded. Problems Name Problem SNOMED Code Status Onset Date Resolution Date Notes Provider Name and Address Organization Details Recorded Time Jatinder osteopen ia 08214642 Completed 201709/21/2021 Delia Harry MD Attn: Accounting ,[address] [facility], [place], [address] , [place] 13:18:45 Generali zed osteoart hritis 806879013 Active 2017 Not Available [facility] 04:34:47 Breast lump 90034360 Active 2018 right Not Available 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 bilatera lly Delia Harry MD Attn: Accounting ,[address] [facility], [place], [address] , [place] 09:44:57 Acute stress disorder 63596074 Active 2020 Delia Harry MD Attn: Accounting ,[address] [facility], [place], [address] , [place] 19:16:52 Hyponatr emia 29054597 Active 2021 Delia Harry MD Attn: Accounting ,[address] [facility], [place], [address] , [place] 2 13:47:26 Hypothyr oidism 19603652 Active Not Available [facility] 0 04:34:48 Osteopor osis 55915543 Active Not Available [facility] 0 04:34:47 Headache 86130323 Active Not Available [facility] 0 04:34:47 Abdomina l pain 57462346 Active Not Available [facility] 0 04:34:48 Constipa tion 14064145 Active Not Available [facility] 0 04:34:48 Fatigue 17332205 Active Not Available [facility] 0 04:34:47 Epigastr ic pain 35907659 Active Not Available [facility] 0 04:34:48 Divertic ulosis of colon without divertic ulitis 259337562 Active Not Available [facility] 0 04:34:47 Cerebrov ascular accident 026521334 Active 2016 Not Available [facility] 0 04:34:48 Hyperlip idemia 84042973 Active 2016 Not Available [facility] 0 04:34:48 Arthriti s 6572464 Active 2016 Bilatera l hands Not Available [facility] 0 04:34:47 Problem Notes None recorded. Procedures Surgical History Date Name Laterality Status Provider Name and Address Organization Details Recorded Time 09/20/20 19 Excision addl breast lesion completed Delia Harry MD Attn: Accounting,[address] [facility], [place], [address], [facility] 09/20/2019 16:42:21 08/09/20 19 biopsy of breast completed Delia Harry MD Attn: Accounting,[address] [facility], [place], [address], [facility] 08/12/2019 14:23:58 10/17/20 18 prosthetic total arthroplasty of right shoulder completed Delia Harry MD Attn: Accounting,[address] [facility], [place], [address], [facility] 10/18/2018 08:26:39 11/29/19 17 AIMS completed Felisa Thompson MA [facility] 11/29/2016 15:08:32 11/29/19 17 SLUMS EXAM completed Felisa Thompson MA [place] [facility] 11/29/2016 15:08:32 Hysterectomy completed Delia Espinal, BUILDING MAINTENANCE SUPERINTENDENT- Attn: Accounting,[address], [place], [address], [facility] 07/23/2015 16:25:02 Imaging Results None recorded. Procedure Notes None recorded. Medical Equipment None [...] Not Available Not Available Vitals Date Recorded Systolic blood pressure Diastolic blood pressure Provider Name and Address Organization Details Last Updated DateTime 01/20/2022 122 mm[Hg] 70 mm[Hg] Delia Harry MD Attn: Accounting,[address] [place], [address], [facility] 01/20/2022 16:41:10 Date Recorded Body height Body mass index (BMI) Body weight Body temperature Oxygen saturation Oxygen saturation in Arterial blood by Pulse oximetry Heart rate Systolic blood pressure Diastolic blood pressure Provider Name and Address Organization Details Last Updated DateTime 2 165.1 cm 18.7 kg/m2 39241.1 g 97.8 [degF] 99 % 99 % 68 /min 122 mm[Hg] 72 mm[Hg] Gisselle Kenyon MA [facility] 2 15:51:39 Date Recorded Body height Provider Name an d Address Organization Details Last Updated DateTime 02/15/2022 165.1 cm Jono Gunn MA [place] [facility] 02/16/20 22 11:35:56 Date Recorded Systolic blood pressure Diastolic blood pressure Systolic blood pressure Diastolic blood pressure Provider Name and Address Organization Details Last Updated DateTime 09/21/2021 138 mm[Hg] 60 mm[Hg] 124 mm[Hg] 78 mm[Hg] Delia boyd MD Attn: Accounting ,[address] [place], [address] , [facility] 1 11:30:23 Date Recorded Body height Body mass index (BMI) Body weight Oxygen saturation Oxygen saturation in Arterial blood by Pulse oximetry Heart rate Body temperature Systolic blood pressure Diastolic blood pressure Provider Name and Address Organization Details Last Updated DateTime 1 165.1 cm 18.3 kg/m2 93716.5 6 g 99 % 99 % 69 /min 97.2 [degF] 138 mm[Hg] 62 mm[Hg] Tulio Bazan MA [facility] 1 10:50:05 Date Recorded Systolic blood pressure Diastolic blood pressure Provider Name and Address Organization Details Last Updated DateTime 10/07/2021 132 mm[Hg] 70 mm[Hg] Delia Harry MD Attn: Accounting,[address] [place], [address], [facility] 10/07/2021 11:19:00 Date Recorded Body height Body mass index (BMI) Body weight Oxygen saturation Oxygen saturation in Arterial blood by Pulse oximetry Body temperature Heart rate Systolic blood pressure Diastolic blood pressure Provider Name and Address Organization Details Last Updated DateTime 1 165.1 cm 18.5 kg/m2 15404.8 5 g 99 % 99 % 97 [degF] 68 /min 140 mm[Hg] 70 mm[Hg] Jono Gunn MA [facility] 1 11:02:08 Social History Question Answer Notes LastModified by Organizat ion Details LastModified Time Tobacco Smoking Status Never Smoker Felisa Thompson MA [facility], [facility] 10/27/2014 14:15:07 Do You Have An Advance Directive? Yes Information not available 12/22/2017 What Is Your Level Of Caffeine Consumption? Occasional Information not available 12/22/2017 What Type Of Diet Are You Following? REGULAR Information not available 12/22/2017 Which Illicit Or Recreational Drugs Have You Used? No Information not available 12/22/2017 Education 11 Information no t available 12/22/2017 Are There Any Guns Present [...] Sunscreen Routinely? No Information not available 12/22/2017 Sex: Female Functional Status Question Answer Note LastModified by Organizat ion Details LastModified Time Do you or have you ever used any other forms of tobacco or nicotine? No Information not available 04/09/2021 What is your level of alcohol consumption? Occasional [email or web address] Information not available 07/23/2015 Are you able to care for yourself? 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 Information not available 12/22/2017 What is your [...] MD Attn: Accounting,[address] [facility], [place], [place], [address] [place] [address], [place] [facility] 01/20/2022 16:49:09 Hep A, live attenuated 8 completed Delia Harry MD Attn: Accounting,[address] [facility], [place], [place], [address] [place] [address], [facility] 01/20/2022 16:49:09 Hep B, adult 2 completed Delia Harry MD Attn: Accounting,[address] [facility], [place], [address] [place] [address], [place] [facility] 01/20/2022 16:49:09 Hep B, adult 2 completed Delia Harry MD Attn: Accounting,[address] [facility], [place], [address] [place] [address], [place] [facility] 01/20/2022 16:49:09 Hep B, adult 2 completed Delia Harry MD Attn: Accounting,[address] [facility], [place], [address] [place] [address], [place] [facility] 01/20/2022 16:49:09 Influenza, high-dose, quadrivalent, PF 0 completed Delia Harry MD Attn: Accounting,[address] [facility], [place], [address] [place] [address], [place] [facility] 01/20/2022 16:49:09 zoster recombinant 0 completed Delia Harry MD Attn: Accounting,[address] [facility], [place], [address] [place] [address], [place] [facility] 01/20/2022 16:49:09 zoster recombinant 0 completed Delia Harry MD Attn: Accounting,[address] [facility], [place], [address] [place] [address], [place] [facility] 01/20/2022 16:49:09 COVID-19, mRNA, LNP-S, PF, 30 mcg/0.3 mL dose 1 completed Delia Harry MD Attn: Accounting,[address] [facility], [place], [address] [place] [address], [place] [facility] 01/20/2022 16:49:09 COVID-19, mRNA, LNP-S, PF, 30 mcg/0.3 mL dose 1 completed Delia Harry MD Attn: Accounting,[address] [facility], [place], [address] [place] [address], [place] [facility] 01/20/2022 16:49:09 COVID-19, mRNA, LNP-S, PF, 30 mcg/0.3 mL dose 1 completed Delia Harry MD Attn: Accounting,[address] [facility], [place], [address] [place] [address], [place] [facility] 01/20/2022 16:49:09 Influenza, split virus, quadrivalent, preservative 1 completed Delia Harry MD Attn: Accounting,[address] [facility], [place], [address] [place] [address], [place] [facility] 01/20/2022 16:49:09 Pneumococcal conjugate PCV 13 7 completed Not Available [facility] 12/07/2019 02:33:03 Tdap 3 completed Delia Harry MD Attn: Accounting,[address] [facility], [place], [address] [place] [address], [place] [facility] 01/20/2022 16:49:09 pneumococcal polysaccharide PPV23 9 completed Not Available [facility] 12/07/2019 02:38:42 Tdap 5 completed Not Available [facility] 12/07/2019 02:43:45 typhoid, parenteral 8 completed Delia Harry MD Attn: Accounting,[address] [facility], [place], [address] [place] [address], [place] [facility] 01/20/2022 16:49:09 Past Encounters Encounter ID Performer Location Encounter Start Date Encounter Closed Date Diagnosis/Indication Diagnosis SNOMED-CT Code Diagnosis ICD10 Code Diagnosis Note [id number] Urmila Paz MD [address] [address] 10/27/2014 14:00:52 10/27/2014 15:38:32 Headache 45527482 shi's poss r/t sinus--lauren l try to treat as such MMSE normal--di scussed concerns. Watch for increased signs. concern for excess gas--try probiotics or phazyme [id number] Urmila Paz MD [address] [address] 07/23/2015 14:22:12 07/23/2015 16:35:05 Abdominal pain 46790484 some of sx seem to be reflux--wi ll treat w/ otc Nexium--sa mples given for 1 wk watch what she eats Constipation 01113421 st art Psyllium daily plus Probiotics cont colase--se e if correcting constipati on makes he feel better consider CT of Abd/pelvis if not better in 2 wks Fatigue 31387317 lab soon--chp and Vit D [id number] Urmila Paz MD [address] [address] 11/09/2015 15:12:33 11/09/2015 16:24:15 Adult health examination 818715313 Z00.00 reviewed healthy lifestyle cont reg activity/ good diet Epigastric pain 57876409 R10.13 will check Hpylori back on PPI-- diet as solange [id number] Marco Granados MD [address] [address] 08/02/2016 15:15:05 08/15/2016 13:13:37 Fatigue 92702336 R53.83 will check lab. reviewed diet. cont Vit B compex. reviewed meds from GI--need notes. [id number] Tamiko Aguilar MD [address] [address] 11/29/2016 14:53:52 12/20/2016 16:12:25 Adult health examination 671591818 Z00.00 reviewed healthy lifestyle. discussed issues of memory. discussed balance/di zziness. Balance exercise handout. pt will schedule her awn mamm/bone dens Osteoporosis 19920178 M8 1.0 get bone density Shoulder joint pain 2679 15271 M25.519 reviewed notes from [facility]TH[facility]--con sidering surg--disc ussed. cont ROM exercises Neuropathy 889506980 G62 .9 try B complex. good supporting shoes Ganglion cyst 80115237 M 67.40 believe lumps in hands are ganglion cysts--jeronimo cts not to do anything right now--will watch [id number] Tamiko Aguilar MD [facility] [address] [address] 12/21/2016 09:33:58 01/20/2017 10:32:26 Osteoporosis 01455187 M81.0 reviewed bone density--r eally needs to be treated. info given on Reclast and Prolia--wi research them and get back to us. cont Ca++ w/ D Mammography abnormal 168 316357 R92.8 reviewed Mamm--need s Dx on L History of cerebrovascular accident without residual deficits 870742914 Z86.73 reviewed hosp records. she will cont w/ daily asa and statin as solange. s/w reluctant to take but will try to take 3 x wk at least. questions if some of sx were from dehydratio n--make sure she keeps hydrated. has May appt w/ spec. at [facility]--wi keep [id number] Marco Granados MD [address] [address] 04/11/2017 09:56:57 04/19/2017 11:06:16 Dizziness 210019111 R42 Check labs. Boost samples. Hand pain 15357963 M79.6 42 Check labs. [id number] Marco Granados MD [address] [address] 04/25/2017 09:53:39 05/01/2017 12:14:10 Hypothyroidism 52427666 E03.9 Hyperlipidemia 43217955 E78.5 Cerebrovas cular accident 778666444 I63.9 Dizziness 917751518 R42 Better with meclizine prn. Osteoarthritis 327876434 M19.90 Taking celebrex once daily, as needed, and helping a lot. Vitamin D deficiency 347 00308 E55.9 Low normal, continue vit d supplement ation, take with beneficial fats like coconut oil to help improve absorption . [id number] Marco Granados MD [address] [address] 08/25/2017 14:03:08 09/04/2017 16:22:50 Cerebrovascular accident 573287181 I63.9 One year in Nov 2017. Hypothyroidism 92769011 E03.9 Hyperlipidemia 41418648 E78.5 Osteoporosis 35270934 M8 1.0 Per DEXA scan done in 12/06, then she had one again in 07/06, shows improvemen t in T scores after being on OTC ca and vit d, continue. Fatigue 04224009 R53.83 Could be manifestat ion of depression , labs all rad normal. Unlikely to be sleep apnea. Will try low dose sertraline to see whether that helps. Lives by self, she never , never had kids. Pain of [facility] 06490993 M25.511 Chronic low back pain 27 9441575 M54.5 [id number] Marco Granados MD [address] [address] 10/17/2017 10:19:55 10/25/2017 16:04:35 Cerebrovascular accident 507450291 I63.9 One year in Nov 2017. Arthritis 8255466 M19.90 Hypothyroidism 06617202 E03.9 Hyperlipidemia 66279846 E78.5 Osteoporosis 00947241 M8 1.0 Per DEXA scan done in 12/06, then she had one again in 07/06, shows improvemen t in T scores after being on OTC ca and vit d, continue. Depressive disorder 3548 9007 F32.89 Continue sertraline . Synovial c yst of popliteal space 42825160 M71.22 Will try oral steroids, if no help, may need orthopedic referral later. Aphthous u lcer of mouth 132507740 K12.0 [id number] Marco Granados MD [address] [address] 12/22/2017 15:38:41 12/26/2017 14:40:05 Complaining of - postnasal drip 370609284 R09.82 Eczema 30801074 L30.9 [id number] Delia Harry MD [facility] [address] [place] [address] 05/14/2018 12:03:02 05/15/2018 09:07:40 Hypothyroidism 37894675 E03.9 to have lab check in July and follow up in the beginning of August Adult [facility] th examination 040934604 Z00.00 healthy and appropriat e-- risk for CVD with prior stroke History of cerebrovascular accident 910234687 Z86.73 I advised she take ASA 81 mg daily Hyperlipidemia 04564939 E78.5 I advised to decrease the atorvastat in ot -- since last lipids were exceptiona l and she is considerin g stopping med since she is opposed to taking meds in principal Chronic hoarseness 88050 39836 105 R49.0 I advised she try the nasal steroid daily for at least a month to treat the hoarseness -- probably related to PND. I did not see PND on exam -- she had seen ENT in the past [id number] Delia Harry MD [facility] [address] [facility] [address] [place] [address] 08/17/2018 09:50:36 08/17/2018 12:50:26 Hypothyroidism 19009999 E03.9 to have lab check in July and follow up in the beginning of August Hyperlipidemia 95621956 E78.5 I advised to decrease the atorvastat in ot - since last lipids were exceptiona l and she is considerin g stopping med since she is opposed to taking meds in principal Fatigue 44552958 R53.83 [id number] Delia Harry MD [facility] [address] [facility] [address] [place] [address] 08/21/2018 10:14:53 08/22/2018 09:44:10 Hypothyroidism 95782120 E03.9 lab reviewed and copy to patient-- stable Hyperlipidemia 30493933 E78.5 I advised to continue the atorvastat in on Generalize d osteoarthritis 025515196 M15.9 consider surgical correction of the right shoulder-- letter for patient to continue with exercise program-- like [place] Senile osteopenia 047615 06 M85.80 wants a letter for exercise program coverage since not covered with her health insurance Total bili lee above reference range [id number] 56539 R17 this is stable for patient-- no further evaluation needed-- 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 You jeramie contin wit the PROBIOTIC and STOOL SOFTNER at this time. Likely IBS. You will call in a month for prescripti on trial of BENTYL if not better wtih dairy eliminatio n Generalize d osteoarthritis 315402103 M15.9 the arthritis lauren likely trigger intermitte nt pain-- stay active and note that inactivity does lead to greater pain and stiffness. Hypothyroidism 44451468 E03.9 lab reviewed and copy to patient-- stable Long-term drug therapy 498617135 Z79.458 [id number] Delia Harry MD [facility] [address] [place] [address] 08/05/2019 12:15:58 08/05/2019 14:53:26 Mass of right breast [id number] 8582966 N63.10 I recommend a visit with Dr Whyte and to have [id number] Delia Harry MD [facility] [address] [place] [address] 09/03/2019 09:19:54 09/03/2019 11:31:36 Generalized osteoarthritis 060003393 M15.9 the arthritis lauren likely trigger intermitte nt pain-- stay active and note that inactivity does lead to greater pain and stiffness. 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 She does not want to start any new medication s and would like to wait til after the surgery to think about therapy. She has a strong support system and has been talking with them to help cope Influenza vaccination declined 250599056 Z28.21 discussed and refused [id number] Delia Harry MD [facility] [address] [place] [address] 11/12/2019 09:23:22 11/12/2019 12:16:09 Postmenopausal osteoporosis 480568114 M81.0 I would suggest RECLAST generic-- if affordable from [facility]- let me know Influenza vaccination declined 304650011 Z28.21 discussed and refused [id number] Delia Harry MD [facility] [address] [place] [address] 03/11/2020 11:54:30 03/11/2020 14:37:16 Hypothyroidism 19022330 E03.9 lab reviewed form 04/2019 -- stable-- will need retesting then-- unless test done per memory evaluation protocol Poor short -term memory 716121797 R41.3 memory referral per patient request Constipation 94381045 K5 9.00 management discussed and diet likely trigger-- since better through and worse since -- mainstay of treatment- - MIRALAX-- every day-- dose increase to TID until stools are soft / renewal of daily BMs [id number] Delia Harry MD [facility] [address] [place] [address] 03/26/2020 10:44:40 03/27/2020 12:02:04 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 OK to use benedryl pill form-- not cream--at bedtime for itching [id number] Delia Harry MD [facility] [address] [place] [address] 08/17/2020 14:01:37 08/17/2020 18:21:15 Paresthesia of lower extremity 431118638 R20.2 this may be a side effect related to the anastrazol e but the benefit outweighs this as a risk-- I would recommend continuing treatment Generalize d osteoarthritis 261701039 M15.9 Long-term drug therapy 591748760 Z79.899 if the lab testing is negative-- will need to X RAY the areas of pain Hypothyroidism 22729698 E03.9 lab reviewed -- will need retesting tomorrow History of malignant neoplasm of breast 143969057 Z85.3 [id number] Delia Harry MD [facility] [address] [facility] [address] [place] [address] 11/09/2020 10:51:32 11/09/2020 15:53:09 Paresthesia of lower extremity 956735739 R20.2 again , this may be a side effect related to the anastrazol e but the benefit outweighs this as a risk-- I would recommend continuing treatmentb 12 and folate normal Dupuytren' s disease of palm 507539070 M72.0 seeing hand surgeon [id number] Delia Harry MD [facility] [address] [facility] [address] [facility] [place] [address] 01/19/2021 09:02:09 01/20/2021 12:00:02 Acute low back pain 127602274 M54.5 I advise to get the XRAYs completed and will make plans pending outcome Pain of ri ght hip joint 1302345423 15867 M25.551 xray ordered and patient to pospone any nerve testing until after the xrays-- the feet numbness persists and the testing was not completed in Nov as scheduled originally due to a lost order at [facility]-- if retesting advised-- she wants to have the test done elsewhere [id number] Delia Harry MD [facility] [address] [facility] [address] [place] [address] 04/09/2021 13:29:49 04/12/2021 12:31:11 Acute stress disorder 41083851 F43.0 I offered counseling or correction and declined-- she agrees to start low dose sertraline and follow up in one month for reassessme nt to see if med change or dose adjustment will be needed [id number] Delia Harry MD [facility] [address] [facility] [place] [address] 04/27/2021 14:21:44 04/28/2021 14:58:42 Long-term drug therapy 884713229 Z79.899 if the lab testing ordered since new start AKIL inhibitor. Will get records from [place] ER visits Acute stress disorder 67 132424 F43.0 I offered counseling or correction and declined-- she agrees to increase the dose sertraline since still worrying and not herself and troubled with sleeping. She is to follow up in one month for reassessme nt to see if med change or dose adjustment will be needed Benign ess ential hypertension 0665183 I10 no dose change in LISINOPRIL and will re-evaluat e in one week-- will get the reports from the ER [id number] Delia Harry MD [facility] [address] [facility] [address] [place] [address] 05/20/2021 08:56:53 05/20/2021 16:13:55 Acute stress disorder 69490828 F43.0 she is feeling better and she agrees to taper the dose sertraline -- I advised 25 mg daily for another week ( started taper on 05/12 per patient case)-- and then take 25 mg every other day for 14 days-- then stop. If anxiety increases- - she will contact office to restart sertraline 25 mg daily Hypothyroidism 08917039 E03.9 lab reviewed -- will need retesting tomorrow [id number] Delia Harry MD [facility] [address] [facility] [address] [place] [address] 09/21/2021 10:30:29 09/21/2021 15:49:44 Benign essential hypertension 6448160 I10 dose change in LOSARTAN to 50 mg and will re-evaluat e in two weeks Generalize d anxiety disorder 15455242 F41.1 I advised her to cont taking sertraline for at least 6 weeks to evaluate it's effect on anxiety-- do not stop taking this med-- and take it daily Osteoporosis 51401726 M8 1.0 [facility] plans to stop taking RECLASt-- will need to re-evaluat e with DEXA to reassess bone density ( last check was Oct 2019) [id number] Delia Harry MD [facility] [address] [place] [address] 10/07/2021 10:47:59 10/08/2021 10:45:26 Acute stress disorder 99070870 F43.0 she is feeling better and she agrees to taper the dose sertraline - now to start sertraline 25 mg daily. Follow up in 3 mo with plan to transition off med if continues to improve with adjustment disorder Benign ess ential hypertension 1238487 I10 advised no dose change in LOSARTAN 50 mg and will re-evaluat e with plan to change in 3 months back to 25 mg daily if BP well controlled -- <150/>90-- goal 130/80. No interest in lowering BP less than 100 systolic Adjustment disorder with anxious mood 45585421 F43.22 she is feeling better and she agrees to taper the dose sertraline - now to start sertraline 25 mg daily. Follow up in 3 mo with plan to transition off med if continues to improve with adjustment disorder [id number] Delia Harry MD [facility] [address] [place] [address] 01/20/2022 15:38:29 01/21/2022 14:29:02 Essential hypertension 62454016 I10 no change in the dose of the LOSARTAN 100 mg dialy due to max benefit after 14 days of this current dose-- will reassess after co nt to take and record home BP readingsho me monitor was tested today and accuracy was very goodI advised ER follow up with cardiologi st at [place] and I advised Dr Alta Santamaria-- she has name and contact informatio n and prefers to set up appointmen t with cardiologi st herself Hyponatremia 38830479 E8 7.1 follow up from ER sodium of 131 needed Unsteady when walking 22 361360 R26.89 cause not clear---ab le to walk outdoors with her sister for exercise [id number] Delia Harry MD [facility] [address] [place] [address] 02/15/2022 09:55:49 02/15/2022 17:43:50 Essential hypertension 48048626 I10 cont to take and record home BP readingsco nt with the carvedilol 6.25 mg BID ( instead of cutting dose in 11/21)cont home monitor was tested today and accuracy was very goodget up sia cota plenty of fluidssee cardiologi st as arranged in a week Acute stress disorder 67 955035 F43.0 she is feeling better Follow up in 3 mo with plan to transition off med if continues to improve with adjustment disorder Hyponatremia 44037585 E8 7.1 improving and electrolyt es reviewed [...] 2 [employer] (MEDICARE SUPPLEMENT) PLAN N Vanda Blancas [id number] Vanda Blancas 05/20/2021 2 [place] Vanda Blancas [id number] Vanda Blancas 09/21/2021 2 [employer] (MEDICARE SUPPLEMENT) PLAN N Vanda Blancas [id number] Vanda Blancas 09/21/2021 2 [place] Vanda Blancas [id number] Vanda Blancas 10/07/2021 2 [employer] (MEDICARE SUPPLEMENT) PLAN N Vanda Blancas [id number] Vanda Blancas 10/07/2021 2 [place] Vanda Blancas [id number] Vanda Blancas 01/20/2022 2 [place] Vanda Blancas [id number] Vanda Blancas 01/20/2022 1 [facility] (MEDICARE REPLACEMENT/AD VANTAGE - HMO) [id number] Vanda Blancas [id number] Vanda Blancas 02/15/2022 1 [facility] (MEDICARE REPLACEMENT/AD VANTAGE - HMO) [id number] Vanda Blancas [id number] Vanda Blancas Notes Date Note Type Note [...] visit. Delia Harry MD Attn: Accounting[address] [place], [address], [place] [facility] 05/20/2021 13:24:39 1 text/html Hypertension F/UReported bypatient.Associated [...] f/u Delia Harry MD Attn: Accounting[address] [place], [address], [facility] 09/21/2021 13:20:02 1 text/html Hypertension F/UReported bypatient.Associated [...] worse Delia Harry MD Attn: Accounting[address] [facility], [place], [address], [facility] 10/07/2021 19:07:54 2 text/html Hypertension F/UReported bypatient.Associated [...] done Delia Harry MD Attn: Accounting[address] , [place], [address], [facility] 01/20/2022 22:51:36 2 text/html Hypertension F/UReported bypatient.Associated Symptoms:no shortness of breath; no edema;dizziness;lighthead edness;chest pain(tightness); pt states that sometimes when standing up she has to move around a little to get stabilized, she will see supervisor concrete stone finishing 02/22/22 Lifestyle:regular exercise; exercises 7 times/week; exercises for 15-20 minutes/day Medications:taking medications as directed;side effects from medications(numbness hand new med); checks blood pressure at home, range:Notes:no answer at 12:15 pmcalled back for appointmentplans to see Dr. Macias next [id number] /70 thinks she is go over test results. Delia Harry MD Attn: Accounting[address] [facility], [place], [address], [facility] 02/15/2022 13:47:36 OBGyn Episode No OBEpisode recorded.
--- OUTSIDE RECORDS SUMMARY | 2025-04-18 11:17 | XMS_ITS | Data Portability ---
Author Organization [facility], Main Office Address [address] [place] [address] Care Team Providers Care Personnel Security Assistant Name Role Phone GABBY SANTOS Primary Care Provider Assessment No assessment recorded. Plan of Treatment Reminders Order Date Submit Date Provider Last Modified By Organization Details Last Modified Time Details Appointments None record ed. Lab None record ed. Referral None record ed. Procedures None record ed. Surgeries None record ed. Imaging None record ed. Medication Orders None record ed. Patient TargetsNo targets recorded. Patient Instructions Encounter Date Encounter Id Patient Instructions Last Modified By Organization Details Last Modified Time 04/10/2025 [id number] she is referred to Dr. Nile Alvarado who is a oral surgeon. Sinus CT is ordered for sinus symptoms. [email or web address] Not available 04/10/2025 12:49:35 Reason for Referral None Reported. 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 Procedures Surgical History Date Name Laterality Status Provider Name and Address Organization Details Recorded Time total shoulder replacement completed Madison Cedeno RN [facility] 04/10/2025 12:19:55 Imaging Results None recorded. Procedure Notes None recorded. Medical Equipment None Reported. Allergies No known drug allergies Medications Name Sig Start Date Stop Date Status Note LastModified by Organization Details LastModified Time buspirone 5 mg tablet TAKE 2 TABLETS BY MOUTH ONCE DAILY active Not Available Not Available No t Available atorvastati n 20 mg tablet TAKE 1 TABLET BY MOUTH ONCE DAILY active Not Available Not Available No t Available tizanidine 2 mg tablet TAKE 1 TABLET BY MOUTH THREE TIMES DAILY NEEDED FOR JAW PAIN active Not Available Not Available No t Available sucralfate 1 gram tablet TAKE 1 TABLET BY MOUTH THREE TIMES DAILY active Not Available Not Available No t Available famotidine 40 mg tablet TAKE 1 TABLET BY MOUTH TWICE DAILY active Not Available Not Available No t Available prednisone 20 mg tablet TAKE 2 TABLETS BY MOUTH ONCE DAILY FOR 5 DAYS 04/10 completed Not Available Not Available Not Available amlodipine 5 mg tablet TAKE 1 TABLET BY MOUTH ONCE DAILY active Not Available Not Available No t Available sulfamethox azole 800 mg-trimetho prim 160 mg tablet TAKE 1 TABLET BY MOUTH EVERY 12 HOURS. HOLD LOSARTAN WHILE TAKING THIS MEDICATIO N active Not Available Not Available No t Available levothyroxi ne 75 mcg tablet TAKE 1 TABLET BY MOUTH ONCE DAILY IN THE MORNING ON AN EMPTY STOMACH active Not Available Not Available No t Available methocarbam ol 750 mg tablet TAKE 1 TABLET BY MOUTH THREE TIMES DAILY active Not Available Not Available No t Available amitriptyli ne 10 mg tablet TAKE 1 TABLET BY MOUTH EVERY DAY AT BEDTIME active Not Available Not Available No t Available losartan 25 mg tablet TAKE 1 TABLET BY MOUTH ONCE DAILY active Not Available Not Available No t Available gabapentin 100 mg capsule TAKE 1 CAPSULE BY MOUTH EVERY DAY AT BEDTIME active Not Available Not Available No t Available ibuprofen 600 mg tablet TAKE 1 TABLET BY MOUTH TWICE DAILY WITH FOOD OR MILK active Not Available Not Available No t Available hydroxyzine HCl 10 mg tablet TAKE 1 TO 2 TABLETS BY MOUTH AT NIGHT NEEDED FOR SLEEP active Not Available Not Available No t Available losartan 100 mg tablet TAKE 1 TABLET BY MOUTH ONCE DAILY active Not Available Not Available No t Available memantine 5 mg tablet TAKE 1 TABLET BY MOUTH IN THE MORNING active Not Available Not Available No t Available nitrofurant oin monohydrate /macrocryst als 100 mg capsule TAKE 1 CAPSULE BY MOUTH EVERY 12 HOURS WITH FOOD FOR 7 DAYS 04/10 completed Not Available Not Available Not Available Vitals Date Recorded Body weight Body mass index (BMI) Body height Body temperature Provider Name and Address Organization Details Last Updated DateTime 04/10/2025 92392.63 g 18.6 kg/m2 165.1 cm 97.8 [degF] Madison Cedeno RN [facility] [employer] 04/10/2025 12:20:54 Social History None recorded. Functional Status Question Answer Note LastModified by Organizat ion Details LastModified Time What is your level of alcohol consumption? Occasional [email or web address] Information not available 04/10/2025 Mental Status None recorded. Family History Relationship Description Onset Age of this Age Resolved Age Notes LastModified by Organization Details LastModified Time Father No current problems or disability [email or web address] Not available 04/10 12:16:51 Mother No current problems or disability [email or web address] Not available 04/10 12:16:51 Notes:NO ENT Medical History Condition Response CANCER: SPECIFY Y EAR OR HEARING PROBLEMS Y HYPERTENSION Y HYPOTHYROIDISM Y HIGH CHOLESTEROL / HYPERLIPIDEMIA Y Gynecological HistoryNo gynecological history recorded. Obstetrics History GPAL:G 0 P 0 0 0 0 Past Encounters Encounter ID Performer Location Encounter Start Date Encounter Closed Date Diagnosis/Indication Diagnosis SNOMED-CT Code Diagnosis ICD10 Code Diagnosis Note [id number] Richard Ayon MD [facility] [place] [address] [place] [address] 04/10/2025 12:09:04 04/11/2025 09:05:16 Arthritis of right temporomandibular joint 6170338747 0777823 M26.641 Chronic ma xillary sinusitis 56452629 J32.0 Health Concerns Section Related Observation LastModified by Organization Detai ls LastModified Time None Recorded Concern Status LastModified by Organization Details LastModified Time None Recorded Advance Directives Directive None Recorded Payers Encounter Date Sequence Insurance Name Policy Number Policy Wheeler Covered Member ID Wheeler Member ID Guarantor Name 04/10/2025 1 [facility] (MEDICARE REPLACEMENT/A DVANTAGE - PPO) [id number] Vanda Blancas [id number] Vanda Blancas Notes Date Note Type Note Provider Name and Address Organization Details Recorded Time 04/10/2025 text/html this patient has been diagnosed with severe right TMJ arthritis. She had a CT an MRI in 2020 she complains of right ear pain right TMJ pain which radiates to her face and head. Richard Ayon MD [address] [place] [address], [place], [address], [facility] 04/10/2025 12:50:07 OBGyn Episode No OBEpisode recorded.
--- OUTSIDE RECORDS SUMMARY | 2025-04-18 11:17 | XMS_ITS | Clinical Summary ---
Author Organization [facility] Address [address] [place] [address] Care Team Providers Care Chemistry Associate Name Role Phone Marco Granados MD Primary Care Provider [phone] Source Comments [facility],non-owned Affiliates and Associated Physician Practices is amultiple site organization consisting of ambulatory clinics and hospital sitesin [place], [place], [place] and [place]. This disclosure is being madepursuant to the [...] at Not on file Legal Sex Female 6:21 PM DRAFTER DETAIL Gender Identity Not on file Sexual Orientation Not on file Plan of Treatment Health Maintenance Due Date Last Done Comments BONE DENSITY TESTING 1940 DTAP/TDAP/TD VACCINES (1 - Tdap) 02/20/1959 PNEUMOCOCCAL VACCINE 50+ (1 of 1 - PCV) 02/20/1990 ZOSTER VACCINE (1 of 2) 02/20/1990 Respiratory Syncytial Virus (RSV) Vaccine Pt: or over 60 yrs (1 - 1-dose 75+ series) 02/20/2015 COVID-19 VACCINE (1 - 2024-2 5 season) 2024 DEPRESSION SCREENING 11/20/2024 MEDICARE [...] on patient's age to complete this topic Insurance [employer] [facility] [place] [address] SELF PAY NO INSURANCE Member Subscriber Plan / Payer (Ef fective for All Dates) Name:Emma Guerra Member ID:Not on file Relation to Subscriber:Not on file Name:EMMA GUERRA Subscriber ID:Not on file Address: [address] [place] [address] Payer ID:Not on file Group ID:Not on file Type:Self Pay Address: [place], [place] UHC MANAGED MEDICARE ADV SELF PAY NO INSURANCE Member Subscriber Plan / Payer (Ef fective for All Dates) Name:Emma Guerra Member ID:Not on file Relation to Subscriber:Not on file Name:EMMA GUERRA Subscriber ID:Not on file Address: [address] [place] [address] Payer ID:Not on file Group ID:Not on file Type:Self Pay Address: [place], [place] [employer] MANAGED MEDICARE ADV Member Subscriber Plan / Payer (Ef fective 2024-Present) Name:Emma Guerra Relation to Subscriber:Self Name:Emma Guerra Payer ID:[id number] (NAIC) Type:Medicare-Managed Care Address: [address] [phone] SELF PAY NO INSURANCE Member Subscriber Plan / Payer (Ef fective for All Dates) Name:Emma Guerra Member ID:Not on file Relation to Subscriber:Not on file Name:EMMA GUERRA Subscriber ID:Not on file Address: [address] [place] [address] [place] [address] Payer ID:Not on file Group ID:Not on file Type:Self Pay Address: [place], [place] [employer] [address] Care Teams Chemistry Associate Relationship Specialty Start Date End Date Marco Granados MD [address] [facility] [place] [phone] PCP - General Internal Medicine 11/23/17
--- OUTSIDE RECORDS SUMMARY | 2025-04-18 11:17 | XMS_ITS | Encounter Summary ---
Author Organization [facility] Facility Care Team Providers Care Product Steward Name Role Phone Delia Harry MD Primary Care Provider [phone] Ysabel Winters MD Primary Care Provider [phone] Jacey Handley MD Primary Care Provider [phone] Elijah Palumbo MD Unavailable [phone] Truman Dillon MD Unavailable [phone] Davin Madsen MD Unavailable [phone] Encounter Details Date Type Department Care Team (Latest Contact Info) Description 10/17/2018 Orders Only [facility] CLINCONV ProviderRobert MD [address] [place], [place] [id number] Social History Tobacco Use Types Packs/Day Years Used Date Smoking Tobacco: Never Alcohol Use Standard Drinks/Week Comments Yes 0 (1 standard drink = 0.6 oz pur e alcohol) Comments Unknown Sex and Gender Information Value Date Recorded Sex Assigned at Not on file Legal Sex Female 1:15 AM ARCHIVAL RECORDS CLERK Gender Identity Female 10/30/2020 9:29 PM ARCHIVAL RECORDS CLERK Sexual Orientation Straight 10/30/2020 9: 29 PM ARCHIVAL RECORDS CLERK documented as of this encounter Plan of Treatment Not on file documented as of this encounter Procedures Procedure Name Priority Date/Time Associated Diagnosis Comments PROCEDURE - RESULT 10/17/2018 12 :00 AM ARCHIVAL RECORDS CLERK documented in this encounter Results * PROCEDURE - RESULT (10/17/2018 12:00 AM ARCHIVAL RECORDS CLERK) Narrative 10/17/2018 12:00 AM ARCHIVAL RECORDS CLERK Ordered by an unspecified provider. us Historical Provider Final Res ult documented in this encounter Visit Diagnoses Not on filedocumented in this encounter Care Teams Product Steward Relationship Specialty Start Date End Date Delia Harry MD [address] [facility] [address] [place] [address] PCP - General 01/18/19 12/06/20 Ysabel Winters MD [address] [facility] [address] [place] [address] PCP - General 12/07/20 12/07/22 Jacey [place] [address] PCP - General Internal Medicine 12/08/22 Elijah Palumbo MD [address] [place] [address] Referring Physician Gastroenterology 07/11/24 Truman Dillon MD [phone] [place] [address] Surgeon Colon and Rectal Surgery 07/23/24 Davin Madsen MD [address] [facility] [address] [place] [address] Assembler Hydraulic Backhoe Gastroenterology 07/23/24 documented as of this encounter
--- OUTSIDE RECORDS SUMMARY | 2025-04-18 11:17 | XMS_ITS | Referral Summary ---
Author Organization 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 Stiffness of shoulder [...] on file Legal Sex Female 1:15 AM COMMUNITY ACTION WORKER Gender Identity Female 10/30/2020 9:29 PM COMMUNITY ACTION WORKER Sexual Orientation Straight 10/30/2020 9: 29 PM COMMUNITY ACTION WORKER Last Filed Vital Signs Vital Sign Reading [...] on file Medical Devices Implanted Type Area Senior Care Manager Device Identifier Shelf Expiration Date Model / Serial / Lot Shoulder Replacement Right: Shoulder Procedures Procedure Name Priority Date/Time Associated Diagnosis Comments DEXA TBS AXIAL SKELETON BONE DENSITY 1 OR MORE SITES Schedule Routine, Read Routine (OP Routine) 01/01/2024 12:40 PM COMMUNITY ACTION WORKER Osteoporosis, unspecified osteoporosis type, unspecified pathological fracture presence from Last 3 Months or Most Recently Relevant to Health Maintenance Results * Dexa TBS Axial Skeleton Bone Density 1 or more sites (01/01/2024 12:40 PM COMMUNITY ACTION WORKER) Anatomical Region Laterality Modality Wrist, Body N/A Radiographic Daksha ging Narrative 01/03/2024 11:35 AM COMMUNITY ACTION WORKER Patient Name: Rey Blancas Date of : 1940 Date of scan: 01/01/2024 Bone mineral density was performed on a HoloWeGreek Discovery Densitometer. Based on machine cross-calibration and [...] by the International Society of Clinical Densitometry. [id number] Ayo Julien MD IMG DXA PROCEDURES Final Result from Last 3 Months or Most Recently Relevant to Health Maintenance Insurance [facility] MEDICARE ADVANTAGE [facility] MEDICARE ADVANTAGE [facility] MEDICARE ADVANTAGE Advance Directives For more information, please contact: [phone] Documents on File Type Date Recorded Patient Homeopathic Doctor Expl anation ADVANCE DIRECTIVE 10/02/2018 12:00 AM POW ER OF ENGRAVER [employer]/MEDICAL * Full Code (Latest Code Status on File) Date Activated Date Inactivated Comments 07/19/2019 10:55 AM 07/19/2019 6:45 PM Care Teams Plate Former Relationship Specialty Start Date End Date Jacey Handley MD [address] [address] PCP - General Internal Medicine 12/08/22 Elijah Palumbo MD [address] [place] [address] Referring Physician Gastroenterology 07/11/24 Truman Dillon MD [address] [facility] [place] [phone] [place] [address] Surgeon Colon and Rectal Surgery 07/23/24 Davin Madsen MD [address] [facility] [address] [place] [address] Manager Inventory Control Gastroenterology 07/23/24
--- OUTSIDE RECORDS SUMMARY | 2025-04-18 11:17 | XMS_ITS | Encounter Summary ---
Author Organization [facility] Address [address] [place] [address] Phone Care Team Providers Care Rail Technician Name Role Phone eDlia Harry MD Primary Care Provider [phone] Everett Arriaga MD Unavailable [phone] Jacey Handley MD Primary Care Provider [phone] Reason for Visit * Reason Comments Medication Refill Encounter Details Date Type Department Care Team (Late st Contact Info) Description 10/21/2021 Refill [facility] [address] [address] Everett Arriaga MD [address] [place] [address] Medication Refill Social History Tobacco Use [...] Everett Arriaga MD - 10/22/2021 10:42 AM PLAYROOM ATTENDANT Ok to fill ROOM ATTENDANT * Telephone Encounter - Ruperto Olivarez RN - 10/22/2021 10:27 AM CST Refill request from pharmacy. Refill if appropriate. ROOM ATTENDANT documented in this encounter Plan of Treatment Upcoming Encounters Date Type Department Care Team (Late st Contact Info) Description 03/06/2026 10:45 AM CDT Lab [facility] [address] [phone] Lab, [facility] 03/06/2026 11:00 AM CDT Ancillary Procedure [facility] [address] [phone] Elizabeth De Jesus APRN, PROTEIN SCIENTIST [address] [place] [address] [address] [place] [address] 03/06/2026 11:30 AM CDT Office Visit [facility] [address] [phone] Everett Arriaga MD [address] [place] [phone] documented as of this encounter Visit Diagnoses Diagnosis 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, estrogen receptor positive (HCC) Other osteoporosis, unspecified pathological fracture presence documented in this encounter Additional Health Concerns Assessment Noted Time PHQ-9 Depression Total Score: 1 01/13/20 21 3:49 PM PLAYROOM ATTENDANT documented as of this encounter Care Teams Rail Technician Relationship Specialty Start Date End Date Delia Harry MD [address] [address] PCP - General Family Medicine 08/13/19 08/16/22 Jacey Handley MD [address] [facility] [place] [address] PCP - General Internal Medicine 08/18/22 Everett Arriaga MD [address] [place] [address] Consulting Physician Oncology 10/20/20 documented as of this encounter
--- OUTSIDE RECORDS SUMMARY | 2025-04-18 11:17 | XMS_ITS | Encounter Summary ---
Author Organization [facility] Address [address] [place] [address] Phone Care Team Providers Care Computer Graphic Artist Name Role Phone Everett Arriaga MD Unavailable [phone] Jacey Handley MD Primary Care Provider [phone] Reason for Visit * Reason Onset Date Comments Canopy Call 08/09/2024 Encounter Details Date Type Department Care Team (Late st Contact Info) Description 08/09/2024 Telephone [facility] [address] [place] [address] Everett Arriaga MD [address] [place] [address] Canopy Call Social History Tobacco [...] Arriaga MD Blunk, Jennifer A., RMA; C[facility] Nurse Pool3 hours ago (8:40 AM) MW We can just get cbc, and cmp * Telephone Encounter - Kristel Rya RMA - 08/09/2024 3:41 PM CDT Patient [...] CDT Lab [facility] [address] [address] Lab, [facility] 03/06/2026 11:00 AM CDT Ancillary Procedure [facility] [address] [address] Elizabeth De Jesus APRN, CONTINUOUS PROCESS ROTARY DRUM TANNER [address] [place] [address], [address] [place], [place] [id number] 03/06/2026 11:30 AM CDT Office Visit [facility] [address] [address] Everett Arriaga MD [address] [place] [phone] documented as of this encounter Results * (ABNORMAL) CMP (COMPREHENSIVE METABOLIC PANEL) (08/30/2024 9:25 AM CDT) Glucose 97 70 - 105 mg/dL [facility] Blood Urea Nitrogen 9 7 - 25 mg/dL [facility] Creatinine 0.7 0.6 - 1.2 mg/dL [facility] Sodium 129(L) 136 - 145 mEq/L [facility] Potassium 4.8 3.5 - 5.1 mEq/L [facility] Chloride 90(L) 98 - 107 mEq/L [facility] Bicarbonate 30 21 - 31 mEq/L [facility] Total Bilirubin 1.2(H) 0.3 - 1.0 mg/dL [facility] Alk. Phosphatase 58 34 - 104 U/L [facility] Aspartate Aminotransferase 22 13 - 39 U/L [facility] Alanine Aminotransferase 12 7 - 52 U/L [facility] Total Protein 7.0 6.4 - 8.9 g/dL [facility] Albumin 4.5 3.5 - 5.7 g/dL [facility] Calcium 10.0 8.6 - 10.3 mg/dL [facility] Anion Gap 13.8 7.0 - 15.0 mEq/L [facility] Globulin 2.5 2.0 - 3.5 g/dL CANCER INSPECTION SUPERVISOR [facility] EGFR 85 >60 ml/min/1. 73m2 CANCER INSPECTION SUPERVISOR [facility] Comment: This eGFR is calculated using 2020 CKD-EPI Creatinine equation without race modifier based on the NKF-ASN task force recommendations Blood 08/30/2024 9:25 AM CDT Narrative CANCER INSPECTION SUPERVISOR [facility] - 08/30/2024 11:54 AM CDT Release to patient->Immediate IS THE PATIENT REQUIRED TO BE FASTING FOR 8 HOURS?->No us Everett Arriaga MD CHEMISTRY ORDERABLES Final Result CANCER INSPECTION SUPERVISOR [facility] [place] [address], documented in this encounter Visit Diagnoses Diagnosis 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, estrogen receptor positive (HCC)- Primary 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, estrogen receptor positive (HCC) documented in this encounter Additional Health Concerns Assessment Noted Time PHQ-9 Depression Total Score: 1 01/13/20 21 3:49 PM SPECIAL WARFARE OPERATOR documented as of this encounter Care Teams Computer Graphic Artist Relationship Specialty Start Date End Date [place]acey [place] [address] PCP - General Internal Medicine 08/18/22 Everett Arriaga MD [address] [place] [phone] Consulting Physician Oncology 10/20/20 documented as of this encounter
--- OUTSIDE RECORDS SUMMARY | 2025-04-18 11:17 | XMS_ITS | Encounter Summary ---
Author Organization [facility] Facility Care Team Providers Care Glass Toughening Operator Name Role Phone Delia Harry MD Primary Care Provider [phone] Ysabel Winters MD Primary Care Provider [phone] Jacey Handley MD Primary Care Provider [phone] Elijah Palumbo MD Unavailable [phone] Truman Dillon MD Unavailable [phone] Davin Madsen MD Unavailable [phone] Encounter Details Date Type Department Care Team (Latest Contact Info) Description 09/24/2018 Orders Only [facility] CLINCONV ProviderRobert MD [address] [place], [place] [id number] Social History Tobacco Use Types Packs/Day Years Used Date Smoking Tobacco: Never Alcohol Use Standard Drinks/Week Comments Yes 0 (1 standard drink = 0.6 oz pur e alcohol) Comments Unknown Sex and Gender Information Value Date Recorded Sex Assigned at Not on file Legal Sex Female 1:15 AM CONSUMER MARKETING SPECIALIST Gender Identity Female 10/30/2020 9:29 PM CONSUMER MARKETING SPECIALIST Sexual Orientation Straight 10/30/2020 9: 29 PM CONSUMER MARKETING SPECIALIST documented as of this encounter Plan of Treatment Not on file documented as of this encounter Procedures Procedure Name Priority Date/Time Associated Diagnosis Comments PROCEDURE - RESULT 09/24/2018 12 :00 AM CONSUMER MARKETING SPECIALIST documented in this encounter Results * PROCEDURE - RESULT (09/24/2018 12:00 AM CONSUMER MARKETING SPECIALIST) Narrative 09/24/2018 12:00 AM CONSUMER MARKETING SPECIALIST Ordered by an unspecified provider. us Historical Provider Final Res ult documented in this encounter Visit Diagnoses Not on filedocumented in this encounter Care Teams Glass Toughening Operator Relationship Specialty Start Date End Date Delia Harry MD [address] [facility] [address] [place] [address] PCP - General 01/18/19 12/06/20 Ysabel Winters MD [address] [facility] [address] [place] [address] PCP - General 12/07/20 12/07/22 [place] [address] PCP - General Internal Medicine 12/08/22 Elijah Palumbo MD [address] [place] [address] Referring Physician Gastroenterology 07/11/24 Truman Dillon MD [phone] [place] [address] Surgeon Colon and Rectal Surgery 07/23/24 Davin Madsen MD [address] [facility] [address] [place] [address] Concrete Block Molder Gastroenterology 07/23/24 documented as of this encounter
--- OUTSIDE RECORDS SUMMARY | 2025-04-18 11:17 | XMS_ITS | Encounter Summary ---
Author Organization [facility] Address [address] [place] [address] Phone Care Team Providers Care Receptionist Airline Lounge Name Role Phone Delia Harry MD Primary Care Provider [phone] Everett Arriaga MD Unavailable [phone] Jacey Handley MD Primary Care Provider [phone] Reason for Visit * Reason Comments Medication Refill Encounter Details Date Type Department Care Team (Late st Contact Info) Description 07/17/2022 Refill [facility] [place] [address] [place] [address] Everett Arriaga MD [address] [place] [address] Medication Refill Social History Tobacco Use [...] * Telephone Encounter - Emma Thacker, KELSEY, PASTORAL COUNSELOR - 07/18/2022 10:20 AM CDT Okay to refill. * Telephone Encounter - Christiana Sheppard RN - 07/18/2022 8:03 AM CDT Refill request from pharmacy Last filled 10/22/2021 #[id number] R-[id number] Please fill if appropriate documented in this encounter Plan of Treatment Upcoming Encounters Date Type Department Care Team (Late st Contact Info) Description 03/06/2026 10:45 AM CDT Lab [facility] [address] [phone] Lab, [facility] 03/06/2026 11:00 AM CDT Ancillary Procedure [facility] [address] [phone] Elizabeth De Jesus APRN, PASTORAL COUNSELOR [address] [place] [address] [address] [place] [address] 03/06/2026 11:30 AM CDT Office Visit [facility] [address] [phone] Everett Arriaga MD [address] [place] [phone] documented as of this encounter Visit Diagnoses Diagnosis 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, estrogen receptor positive (HCC) Other osteoporosis, unspecified pathological fracture presence documented in this encounter Additional Health Concerns Assessment Noted Time PHQ-9 Depression Total Score: 1 01/13/20 21 3:49 PM AUTO MECHANICS TEACHER documented as of this encounter Care Teams Receptionist Airline Lounge Relationship Specialty Start Date End Date Delia Harry MD [address] [address] PCP - General Family Medicine 08/13/19 08/16/22 Jacey Handley MD [address] [place] [address] PCP - General Internal Medicine 08/18/22 Everett Arriaga MD [address] [place] [phone] Consulting Physician Oncology 10/20/20 documented as of this encounter
--- OUTSIDE RECORDS SUMMARY | 2025-04-18 11:17 | XMS_ITS | Encounter Summary ---
Author Organization [facility] Address [address] [place] [address] Phone Care Team Providers Care Paving Contractor Name Role Phone Delia Harry MD Primary Care Provider [phone] Ysabel Winters MD Primary Care Provider [phone] Jacey Handley MD Primary Care Provider [phone] Elijah Palumbo MD Unavailable [phone] Truman Dillon MD Unavailable [phone] Davin Madsen MD Unavailable [phone] Encounter Details Date Type Department Care Team [...] on file Legal Sex Female 1:15 AM CALENDER SUPERVISOR Gender Identity Female 10/30/2020 9:29 PM CALENDER SUPERVISOR Sexual Orientation Straight 10/30/2020 9: 29 PM CALENDER SUPERVISOR documented as of this encounter Plan of Treatment Not on file documented as of this encounter Procedures Procedure Name Priority Date/Time Associated Diagnosis Comments SCAN - RADIOLOGY/IMAGING 10/28/2020 documented in this encounter Results * SCAN - RADIOLOGY/IMAGING (10/28/2020) Anatomical Region Laterality Modality Other us Provider Scanning Final Result documented in this encounter Visit Diagnoses Not on filedocumented in this encounter Care Teams Paving Contractor Relationship Specialty Start Date End Date Delia Harry MD [address] [place] [address] [place] [address] PCP - General 01/18/19 12/06/20 Ysabel Winters MD [address] [facility] [address] [place] [address] PCP - General 12/07/20 12/07/22 Jacey Handley MD [employer] [place] [address] PCP - General Internal Medicine 12/08/22 Elijah Palumbo MD [address] [place] [address] Referring Physician Gastroenterology 07/11/24 Truman Dillon MD [phone] [place] [address] Surgeon Colon and Rectal Surgery 07/23/24 Davin Madsen MD [address] [facility] [address] [place] [address] Renewable Energy Project Manager Gastroenterology 07/23/24 documented as of this encounter
--- OUTSIDE RECORDS SUMMARY | 2025-04-18 11:17 | XMS_ITS | Encounter Summary ---
Author Organization [facility] Address [address] [place] [address] Phone Care Team Providers Care Customer Resolution Specialist Name Role Phone Delia Harry MD Primary Care Provider [phone] Ysabel Winters MD Primary Care Provider [phone] Jacey Handley MD Primary Care Provider [phone] Elijah Palumbo MD Unavailable [phone] Truman Dillon MD Unavailable [phone] Davin Madsen MD Unavailable [phone] Encounter Details Date Type Department Care Team (Late st Contact Info) Description 10/24/2019 Orders Only [facility] [address] [place] [phone] Lolis Mcallister MD [address] [place] [address] [address] [place] [address] Social History Tobacco Use Types Packs/Day Years Used Date Smoking Tobacco: Never Smokeless Tobacco: Never Alcohol Use Standard Drinks/Week Comments Yes 2 (1 standard drink = 0.6 oz pur e alcohol) Comments No Sex and Gender Information Value Date Recorded Sex Assigned at Not on file Legal Sex Female 1:15 AM CAN CLOSING MACHINE TENDER Gender Identity Female 10/30/2020 9:29 PM CAN CLOSING MACHINE TENDER Sexual Orientation Straight 10/30/2020 9: 29 PM CAN CLOSING MACHINE TENDER documented as of this encounter Plan of Treatment Not on file documented as of this encounter Visit Diagnoses Not on filedocumented in this encounter Care Teams Customer Resolution Specialist Relationship Specialty Start Date End Date Delia Harry MD [address] [facility] [address] [place] [address] PCP - General 01/18/19 12/06/20 Ysabel Winters MD [address] [facility] [address] [place] [address] PCP - General 12/07/20 12/07/22 [place] [address] PCP - General Internal Medicine 12/08/22 Elijah Palumbo MD [address] [place] [address] Referring Physician Gastroenterology 07/11/24 Truman Dillon MD [address] [facility] [place] [phone] [place] [address] Surgeon Colon and Rectal Surgery 07/23/24 Davin Madsen MD [address] [facility] [address] [facility] [address] [place] [address] Lead Mechanical Engineer Gastroenterology 07/23/24 documented as of this encounter
== END 2025-04-18 11:04 | disposition home or self-care (01) ==
PROVIDERS: PCP Family Medicine; Visit Provider Otolaryngology
DX: J32.2 Chronic ethmoidal sinusitis (principal); J32.8 Other chronic sinusitis; J34.2 Deviated nasal septum
CPT/HCPCS: 70486

== ENCOUNTER 2025-06-18 12:44 | Outpatient (CLI) | payer MEDICARE, SELFPAY ==
--- OUTSIDE RECORDS SUMMARY | 2025-06-18 12:47 | XMS_ITS | Encounter Summary ---
Author Organization [facility] Address [address] [place] [address] Phone Care Team Providers Care Nurses Medical Assistants Phlebotomists Name Role Phone Everett Arriaga MD Unavailable [phone] Jacey Handley MD Primary Care Provider [phone] Encounter Details Date Type Department Care Team (Late Contact Info) Description 08/12/2024 Telephone [facility] [address] [address] Everett Arriaga MD [address] [place] [address] Social History Tobacco Use Types Packs/Day [...] CDT Lab [facility] [address] [address] Lab, Cc [facility] 03/06/2026 11:00 AM CDT Ancillary Procedure [facility] [address] [address] Elizabeth De Jesus APRN, DIRECTOR OF STRATEGIC PARTNERSHIPS [address] [place] [address] [address] [place] [address] 03/06/2026 11:30 AM CDT Office Visit [facility] [address] [address] Everett Arriaga MD [address] [place] [address] documented as of this encounter Visit Diagnoses Not on filedocumented in this encounter Additional Health Concerns Assessment Noted Time PHQ-9 Depression Total Score: 1 01/13/20 21 3:49 PM GROUND WATER CONTRACTOR documented as of this encounter Care Teams Nurses Medical Assistants Phlebotomists Relationship Specialty Start Date End Date Jacey Handley MD [facility] [place] [address] PCP - General Internal Medicine 08/18/22 Everett Arriaga MD [address] [place] [phone] Consulting Physician Oncology 10/20/20 documented as of this encounter
--- OUTSIDE RECORDS SUMMARY | 2025-06-18 12:47 | XMS_ITS | Encounter Summary ---
Author Organization [facility] Facility Care Team Providers Care Commanding Officer Garage Name Role Phone Delia Harry MD Primary Care Provider [phone] Ysabel Winters MD Primary Care Provider [phone] Jacey Handley MD Primary Care Provider [phone] Elijah Palumbo MD Unavailable Truman Dillon MD Unavailable [phone] Davin Madsen MD Unavailable [phone] Encounter Details Date Type Department Care Team (Latest Contact Info) Description 10/17/2018 Orders Only [facility]INCONV Provider, MD Robert [address] [place], [place] [id number] Social History Tobacco Use Types Packs/Day Years Used Date Smoking Tobacco: Never Alcohol Use Standard Drinks/Week Comments Yes 0 (1 standard drink = 0.6 oz pur e alcohol) Comments Unknown Sex and Gender Information Value Date Recorded Sex Assigned at Not on file Legal Sex Female 1:15 AM PILLOWCASE CUTTER Gender Identity Female 10/30/2020 9:29 PM PILLOWCASE CUTTER Sexual Orientation Straight 10/30/2020 9: 29 PM PILLOWCASE CUTTER documented as of this encounter Plan of Treatment Not on file documented as of this encounter Procedures Procedure Name Priority Date/Time Associated Diagnosis Comments PROCEDURE - RESULT 10/17/2018 12 :00 AM PILLOWCASE CUTTER documented in this encounter Results * PROCEDURE - RESULT (10/17/2018 12:00 AM PILLOWCASE CUTTER) Narrative 10/17/2018 12:00 AM PILLOWCASE CUTTER Ordered by an unspecified provider. us Historical Provider Final Res ult documented in this encounter Visit Diagnoses Not on filedocumented in this encounter Care Teams Commanding Officer Garage Relationship Specialty Start Date End Date Delia Harry MD [address] [facility] [address] [place] [address] PCP - General 01/18/19 12/06/20 Ysabel Winters MD [address] [address] PCP - General 12/07/20 12/07/22 Jacey Handley MD [address] [facility] [address] [place] [address] PCP - General Internal Medicine 12/08/22 Elijah Palumbo MD [address] [place] [address] Referring Physician Gastroenterology 07/11/24 Truman Dillon MD [phone] [place] [address] Surgeon Colon and Rectal Surgery 07/23/24 Davin Madsen MD [address] [facility] [address] [place] [address] Voip Network Technician Gastroenterology 07/23/24 documented as of this encounter
--- OUTSIDE RECORDS SUMMARY | 2025-06-18 12:47 | XMS_ITS | Encounter Summary ---
Author Organization [facility] Facility Care Team Providers Care Naval Police Coxswain Name Role Phone Delia Harry MD Primary Care Provider [phone] Ysabel Winters MD Primary Care Provider [phone] Jacey Handley MD Primary Care Provider [phone] Elijah Palumbo MD Unavailable [phone] Truman Dillon MD Unavailable [phone] Davin Madsen MD Unavailable [phone] Encounter Details Date Type Department Care Team (Latest Contact Info) Description 09/24/2018 Orders Only [facility] CLINCONV Provider, MD Robert [address] [place] [address] Social History Tobacco Use Types Packs/Day Years Used Date Smoking Tobacco: Never Alcohol Use Standard Drinks/Week Comments Yes 0 (1 standard drink = 0.6 oz pur e alcohol) Comments Unknown Sex and Gender Information Value Date Recorded Sex Assigned at Not on file Legal Sex Female 1:15 AM RECRUITING ADMINISTRATOR Gender Identity Female 10/30/2020 9:29 PM RECRUITING ADMINISTRATOR Sexual Orientation Straight 10/30/2020 9: 29 PM RECRUITING ADMINISTRATOR documented as of this encounter Plan of Treatment Not on file documented as of this encounter Procedures Procedure Name Priority Date/Time Associated Diagnosis Comments PROCEDURE - RESULT 09/24/2018 12 :00 AM RECRUITING ADMINISTRATOR documented in this encounter Results * PROCEDURE - RESULT (09/24/2018 12:00 AM RECRUITING ADMINISTRATOR) Narrative 09/24/2018 12:00 AM RECRUITING ADMINISTRATOR Ordered by an unspecified provider. us Historical Provider Final Res ult documented in this encounter Visit Diagnoses Not on filedocumented in this encounter Care Teams Naval Police Coxswain Relationship Specialty Start Date End Date Delia Harry MD [address] [facility] [address] [place] [address] PCP - General 01/18/19 12/06/20 Ysabel Winters MD [address] [address] PCP - General 12/07/20 12/07/22 Jacey Handley MD [address] [facility] [address] [place] [address] PCP - General Internal Medicine 12/08/22 Elijah Palumbo MD [address] [place] [address] Referring Physician Gastroenterology 07/11/24 Truman Dillon MD [phone] [place] [address] Surgeon Colon and Rectal Surgery 07/23/24 Davin Madsen MD [address] [facility] [address] [place] [address] Privacy Analyst Gastroenterology 07/23/24 documented as of this encounter
--- OUTSIDE RECORDS SUMMARY | 2025-06-18 12:47 | XMS_ITS | Encounter Summary ---
Author Organization [facility] Address [address] [place] [address] Phone Care Team Providers Care Multiple Punch Press Operator Name Role Phone Delia Harry MD Primary Care Provider [phone] Ysabel Winters MD Primary Care Provider [phone] Jacey Handley MD Primary Care Provider [phone] Elijah Palumbo MD Unavailable [phone] Truman Dillon MD Unavailable [phone] Davin Madsen MD Unavailable [phone] Reason for Visit * Reason Onset Date Comments Zoom invite 09/22/2020 1:44pm YR spoke with Ms. Blancas and set her up for testing 10/01/2020 10:00am Encounter Details Date Type Department Care Team (Late st Contact Info) Description 09/22/2020 Documentation [facility] [address] [place] [address] [address] Floor [address] [place] [address] Ewelina Fung CNA Zoom invite (1:44pm YR [...] on file Legal Sex Female 1:15 AM INFORMIX DEVELOPER Gender Identity Female 10/30/2020 9:29 PM INFORMIX DEVELOPER Sexual Orientation Straight 10/30/2020 9: 29 PM INFORMIX DEVELOPER documented as of this encounter Plan of Treatment Not on file documented as of this encounter Visit Diagnoses Not on filedocumented in this encounter Care Teams Multiple Punch Press Operator Relationship Specialty Start Date End Date Delia Harry MD [address] [address] PCP - General 01/18/19 12/06/20 Ysabel Winters MD [address] [address] PCP - General 12/07/20 12/07/22 Jacey Handley MD [address] [address] PCP - General Internal Medicine 12/08/22 Elijah Palumbo MD [address] [place] [address] Referring Physician Gastroenterology 07/11/24 Truman Dillon MD [address] [facility] [phone] [place] [address] Surgeon Colon and Rectal Surgery 07/23/24 Davin Madsen MD [address] [facility] [address] [place] [address] Shellfish Farming Supervisor Gastroenterology 07/23/24 documented as of this encounter
--- OUTSIDE RECORDS SUMMARY | 2025-06-18 12:47 | XMS_ITS | Clinical Summary ---
Author Organization [facility] Address [address] [place] [address] Phone Care Team Providers Care Systems Engineer Name Role Phone Jacey Handley MD Primary Care Provider [phone] Allergies No known active allergies Medications acetaminophen [...] Comments Blood Pressure 128/70 11/09/2022 8:47 AM SALES STOCK ASSOCIATE Pulse 72 11/09/2022 8:47 AM SALES STOCK ASSOCIATE Temperature 35.3 C (95.5 F) 11/09/2022 8:47 AM SALES STOCK ASSOCIATE Respiratory Rate - - Oxygen Saturation - - Inhaled Oxygen Concentration - - Weight 50.3 kg (111 lb) 11/09/2022 8:47 AM SALES STOCK ASSOCIATE Height 165.1 cm (5' 5) 11/09/2022 8:47 AM SALES STOCK ASSOCIATE Body Mass Index 18.47 11/09/2022 8:47 AM SALES STOCK ASSOCIATE Plan of Treatment Health Maintenance Due Date Last Done Comments COVID-19 Vaccine ( season) 2024 09/01/2021, 01/15/2021, 12/25/2020 Influenza Vaccine (#1) 2025 09/03/2022 Pneumococcal PPSV23/PCV13 65 + Years / Low and Medium Risk Completed 09/03/2019, 11/29/2016 Insurance [employer] MEDICARE Care Teams Systems Engineer Relationship Specialty Start Date End Date Jacey Handley MD [address] [place] [address] PCP - General Internal Medicine 10/10/22
--- OUTSIDE RECORDS SUMMARY | 2025-06-18 12:47 | XMS_ITS | Encounter Summary ---
Author Organization [facility] Address [address] [place] [address] Phone Care Team Providers Care Orthodontist Assistant Name Role Phone Delia Harry MD Primary Care Provider [phone] Everett Arriaga MD Unavailable [phone] Jacey Handley MD Primary Care Provider [phone] Reason for Visit * Reason Comments Medication Refill Encounter Details Date Type Department Care Team (Late st Contact Info) Description 07/17/2022 Refill [facility] [place] [address] [place] [address] Everett Arriaga MD [address] [place] [phone] Medication Refill Social History Tobacco Use [...] * Telephone Encounter - Emma Thacker, KELSEY, BELT SEWER - 07/18/2022 10:20 AM CDT Okay to refill. * Telephone Encounter - Christiana Sheppard RN - 07/18/2022 8:03 AM CDT Refill request from pharmacy Last filled 10/22/2021 #90 R-2 Please fill if appropriate documented in this encounter Plan of Treatment Upcoming Encounters Date Type Department Care Team (Late st Contact Info) Description 03/06/2026 10:45 AM CDT Lab [facility] [address] [phone] Lab, Cc [facility] 03/06/2026 11:00 AM CDT Ancillary Procedure [facility] [address] [phone] Elizabeth De Jesus APRN, BELT SEWER [address] [place] [address] [address] [place] [address] 03/06/2026 11:30 AM CDT Office Visit [facility] [address] [phone] Everett Arriaga MD [address] [place] [phone] documented as of this encounter Visit Diagnoses Diagnosis 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, estrogen receptor positive (HCC) Other osteoporosis, unspecified pathological fracture presence documented in this encounter Additional Health Concerns Assessment Noted Time PHQ-9 Depression Total Score: 1 01/13/20 21 3:49 PM BOTANY TEACHER documented as of this encounter Care Teams Orthodontist Assistant Relationship Specialty Start Date End Date Delia Harry MD [address] [address] PCP - General Family Medicine 08/13/19 08/16/22 Jacey Handley MD [address] [place] [address] PCP - General Internal Medicine 08/18/22 Everett Arriaga MD [address] [place] [address] Consulting Physician Oncology 10/20/20 documented as of this encounter
--- OUTSIDE RECORDS SUMMARY | 2025-06-18 12:47 | XMS_ITS | Encounter Summary ---
Author Organization [facility] Address [address] [place] [address] Phone Care Team Providers Care Resident Director Name Role Phone Everett Arriaga MD Unavailable [phone] Jacey Handley MD Primary Care Provider [phone] Reason for Visit * Reason Onset Date Comments Canopy Call 08/09/2024 Encounter Details Date Type Department Care Team (Late st Contact Info) Description 08/09/2024 Telephone [facility] [address] [place] [address] Everett Arriaga MD [address] [place] [address] Canopy Call Social History Tobacco [...] CDT Lab [facility] [address] [address] Lab, Cc [facility] 03/06/2026 11:00 AM CDT Ancillary Procedure [facility] [address] [address] Elizabeth De Jesus APRN, BLOCK AND CASE MAKER [address] [place] [address], [address] [place], [place] [id number] 03/06/2026 11:30 AM CDT Office Visit [facility] [address] [address] Everett Arriaga MD [address] [place] [phone] documented as of this encounter Results [...] [place] Globulin 2.5 2.0 - 3.5 g/dL CANCER JAVA SOFTWARE ENGINEER [facility] EGFR 85 >60 ml/min/1. 73m2 CANCER JAVA SOFTWARE ENGINEER [facility] Comment: This eGFR is calculated using 2020 CKD-EPI Creatinine equation without race modifier based on the NKF-ASN task force recommendations Blood 08/30/2024 9:25 AM CDT Narrative CANCER JAVA SOFTWARE ENGINEER [facility] - 08/30/2024 11:54 AM CDT Release to patient->Immediate IS THE PATIENT REQUIRED TO BE FASTING FOR 8 HOURS?->No us Everett Arriaga MD CHEMISTRY ORDERABLES Final Result CANCER JAVA SOFTWARE ENGINEER [facility] [place] [address], documented in this encounter Visit Diagnoses Diagnosis 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, estrogen receptor positive (HCC)- Primary 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, estrogen receptor positive (HCC) documented in this encounter Additional Health Concerns Assessment Noted Time PHQ-9 Depression Total Score: 1 01/13/20 21 3:49 PM ROOFING SUPERINTENDENT documented as of this encounter Care Teams Resident Director Relationship Specialty Start Date End Date [place] [address] PCP - General Internal Medicine 08/18/22 Everett Arriaga MD [address] [place] [phone] Consulting Physician Oncology 10/20/20 documented as of this encounter
--- OUTSIDE RECORDS SUMMARY | 2025-06-18 12:47 | XMS_ITS | Encounter Summary ---
Author Organization [facility] Address [address] [place] [address] Phone Care Team Providers Care Automotive Parts Counter Assistant Name Role Phone Delia Harry MD Primary Care Provider [phone] Ysabel Winters MD Primary Care Provider [phone] Jacey Handley MD Primary Care Provider [phone] Elijah Palumbo MD Unavailable [phone] Truman Dillon MD Unavailable [phone] Davin Madsen MD Unavailable [phone] Encounter Details Date Type Department Care Team [...] on file Legal Sex Female 1:15 AM SAS DEVELOPER Gender Identity Female 10/30/2020 9:29 PM SAS DEVELOPER Sexual Orientation Straight 10/30/2020 9: 29 PM SAS DEVELOPER documented as of this encounter Plan of Treatment Not on file documented as of this encounter Procedures Procedure Name Priority Date/Time Associated Diagnosis Comments SCAN - RADIOLOGY/IMAGING 10/28/2020 documented in this encounter Results * SCAN - RADIOLOGY/IMAGING (10/28/2020) Anatomical Region Laterality Modality Other us Provider Scanning Final Result documented in this encounter Visit Diagnoses Not on filedocumented in this encounter Care Teams Automotive Parts Counter Assistant Relationship Specialty Start Date End Date Delia Harry MD [address] [facility] [address] [place] [address] PCP - General 01/18/19 12/06/20 Ysabel Winters MD [address] [facility] [address] [place] [address] PCP - General 12/07/20 12/07/22 Jacey Handley MD [address] [address] PCP - General Internal Medicine 12/08/22 Elijah Palumbo MD [address] [place] [address] Referring Physician Gastroenterology 07/11/24 Truman Dillon MD [phone] [place] [address] Surgeon Colon and Rectal Surgery 07/23/24 Davin Madsen MD [address] [facility] [address] [place] [address] Blade Filer Gastroenterology 07/23/24 documented as of this encounter
--- OUTSIDE RECORDS SUMMARY | 2025-06-18 12:48 | XMS_ITS | Clinical Summary ---
Author Organization [facility] Address [address], [facility] [address] [place] [address] Phone Care Team Providers Care Intensive Care Ambulance Paramedic Name Role Phone Everett Arriaga MD Unavailable [phone] Jacey Handley MD Primary Care Provider [phone] Allergies Active Allergy Reactions Criticality Noted Date [...] Lnp-s, Pf, 3 0 Mcg/0.3 Ml Dose (Striped Sail) 01/15/2021,12/25/2020 Hepatitis A Vaccine 06/25/2019,03/19/2018 Hepatitis A, [...] AM CDT Lab [facility] [address] [address] Lab, Cc [facility] 03/06/2026 11:00 AM CDT Ancillary Procedure [facility] [address] [address] Elizabeth De Jesus, SECURITY PATROL DRIVER, LINING INSERTER [address] [place] [address], [address] [place], [place] [phone] 03/06/2026 11:30 AM CDT Office Visit [facility] [address] [address] Everett Arriaga MD [address] [place] [phone] Health Maintenance Due Date Last Done Comments Hepatitis C Virus (HCV) Screening 1940 Discussion re Stopping Mammograms 02/20/2015 SARS-COV-2 Immunization ( season) 2024 09/01/2022, 05/09/2022, 09/01/2021, Additional history exists Influenza Immunization (#1) 07/21/202507/21, 09/03/2022, 11/18/2021, Additional history exists Td Immunization Every 10 Years (Adults With 1 Tdap) 11/09/2025 11/09/2015, 05/06/2003, 06/01/1998 DEXA Bone Density 11/23/2025 11/23/2023, , 10/25/2019 Mammogram 02/25/2026 02/25/2025, 04/0 06/2025, 02/13/2024, Additional history exists Hepatitis B Immunization Completed 002, 04/23/2002, 03/21/2002 DTaP/Tdap/Td Immunization Discontinued 2014, 05/06/2003, 06/01/1998 Pneumococcal Immunization (50+ years) Completed 09/03/2019, 11/29/2016 Pneumococcal Immunization Combined Discontinued 09/03/2019, 11/29/2016 Zoster Immunization Completed 10/26/2020, 10/22/2020, 10/16/2020, Additional history exists Respiratory Syncytial Virus (RSV) Immunization (Adult) Completed 11/29/2023 Human Papillomavirus (HPV) Immunization Aged Out No longer eligible based on patient's age to complete this topic Meningococcal Immunization (ACWY) Aged Out No longer eligible based on patient's age to complete this topic Rotavirus Immunization Aged Out No lo nger eligible based on patient's age to complete this topic Procedures Procedure Name Priority Date/Time Associated Diagnosis Comments [facility] BONE DENSITOMETRY AXIAL SKELETON Routine 11/23/2023 9:58 AM PROFILE STITCHING MACHINE OPERATOR Encounter for monitoring aromatase inhibitor therapy from Last 3 Months or Most Recently Relevant to Health Maintenance Results * [facility] BONE DENSITOMETRY AXIAL SKELETON (11/23/2023 9:58 AM PROFILE STITCHING MACHINE OPERATOR) Anatomical Region Laterality Modality BODY N/A Other Narrative 11/23/2023 11:24 AM PROFILE STITCHING MACHINE OPERATOR EXAMINATION: [facility] BONE DENSITOMETRY AXIAL SKELETON INDICATIONS: Encounter [...] Signature: 11/23/2023 11:24:30 us Emma Martínez APRN, LINING INSERTER IMG DEXA ORDERABL ES Final Result from Last 3 Months or Most Recently Relevant to Health Maintenance Insurance MEDICARE C [facility] Care Teams Intensive Care Ambulance Paramedic Relationship Specialty Start Date End Date Jacey Handley MD [address] [facility] [place] [address] PCP - General Internal Medicine 08/18/22 Everett Arriaga MD [address] [place] [phone] Consulting Physician Oncology 10/20/20
--- OUTSIDE RECORDS SUMMARY | 2025-06-18 12:48 | XMS_ITS | Encounter Summary ---
Author Organization [facility] Address [address] [place] [address] Phone Care Team Providers Care Cleater Name Role Phone Delia Harry MD Primary Care Provider [phone] Ysabel Winters MD Primary Care Provider [phone] Jacey Handley MD Primary Care Provider [phone] Elijah Palumbo MD Unavailable [phone] Truman Dillon MD Unavailable [phone] Davin Madsen MD Unavailable [phone] Encounter Details Date Type Department Care Team (Late st Contact Info) Description 10/24/2019 Orders Only [facility] Gastroenterology [address] [facility] Office [address] [place] [phone] Lolis Mcallister MD [address] [place] [address] [address] [place] [address] Social History Tobacco Use Types Packs/Day Years Used Date Smoking Tobacco: Never Smokeless Tobacco: Never Alcohol Use Standard Drinks/Week Comments Yes 2 (1 standard drink = 0.6 oz pur e alcohol) Comments No Sex and Gender Information Value Date Recorded Sex Assigned at Not on file Legal Sex Female 1:15 AM WEDGER MACHINE Gender Identity Female 10/30/2020 9:29 PM WEDGER MACHINE Sexual Orientation Straight 10/30/2020 9: 29 PM WEDGER MACHINE documented as of this encounter Plan of Treatment Not on file documented as of this encounter Visit Diagnoses Not on filedocumented in this encounter Care Teams Cleater Relationship Specialty Start Date End Date Delia Harry MD [address] [facility] [address] [place] [address] PCP - General 01/18/19 12/06/20 Ysabel Winters MD [address] [facility] [address] [place] [address] PCP - General 12/07/20 12/07/22 Jacey Handley MD [address] [facility] [address] [place] [address] PCP - General Internal Medicine 12/08/22 Elijah Palumbo MD [address] [place] [address] Referring Physician Gastroenterology 07/11/24 Truman Dillon MD [phone] [place] [address] Surgeon Colon and Rectal Surgery 07/23/24 Davin Madsen MD [address] [facility] [address] [place] [address] Family And Consumer Science Professor Gastroenterology 07/23/24 documented as of this encounter
--- OUTSIDE RECORDS SUMMARY | 2025-06-18 12:48 | XMS_ITS | Referral Summary ---
Author Organization [facility] Address [address] [place] [address] Care Team Providers Care Vice President Of Finance Name Role Phone Jacey Handley MD Primary Care Provider [phone] Elijah Palumbo MD Unavailable [phone] Truman Dillon MD Unavailable [phone] Davin Madsen MD Unavailable [phone] Allergies Active Allergy Reactions Criticality Noted Date [...] (KENALOG) 0.1 % cream 1 Active zoledronic yukc-xaccthuO-o ater (RECLAST) 5 mg/100 mL piggyback 2 [...] (07/16/2019): Added automatically from request for surgery [id number] 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 Stiffness of shoulder [...] on file Legal Sex Female 1:15 AM ARCHITECTURAL SALES CONSULTANT Gender Identity Female 10/30/2020 9:29 PM ARCHITECTURAL SALES CONSULTANT Sexual Orientation Straight 10/30/2020 9: 29 PM ARCHITECTURAL SALES CONSULTANT Last Filed Vital Signs Vital Sign Reading [...] on file Medical Devices Implanted Type Area Agricultural Equipment Sales Manager Device Identifier Shelf Expiration Date Model / Serial / Lot Shoulder Replacement Right: Shoulder Procedures Procedure Name Priority Date/Time Associated Diagnosis Comments DEXA TBS AXIAL SKELETON BONE DENSITY 1 OR MORE SITES Schedule Routine, Read Routine (OP Routine) 01/01/2024 12:40 PM ARCHITECTURAL SALES CONSULTANT Osteoporosis, unspecified osteoporosis type, unspecified pathological fracture presence from Last 3 Months or Most Recently Relevant to Health Maintenance Results * Dexa TBS Axial Skeleton Bone Density 1 or more sites (01/01/2024 12:40 PM ARCHITECTURAL SALES CONSULTANT) Anatomical Region Laterality Modality Wrist, Body N/A Radiographic Daksha ging Narrative 01/03/2024 11:35 AM ARCHITECTURAL SALES CONSULTANT Patient Name: Rey Blancas Date of : 1940 Date of scan: 01/01/2024 Bone mineral density was performed on a HoloBackblaze Discovery Densitometer. Based on machine cross-calibration and [...] by the International Society of Clinical Densitometry. [id number] Ayo Julien MD IMG DXA PROCEDURES Final Result from Last 3 Months or Most Recently Relevant to Health Maintenance Insurance [facility] MEDICARE ADVANTAGE [facility] MEDICARE ADVANTAGE [facility] MEDICARE ADVANTAGE Advance Directives For more information, please contact: [phone] Documents on File Type Date Recorded Patient Physician Gynecologist Expl anation ADVANCE DIRECTIVE 10/02/2018 12:00 AM [facility] OF CALCULATING MACHINE MECHANIC FINANCIAL/MEDICAL * Full Code (Latest Code Status on File) Date Activated Date Inactivated Comments 07/19/2019 10:55 AM 07/19/2019 6:45 PM Care Teams Vice President Of Finance Relationship Specialty Start Date End Date Jacey Handley MD PCP - General Internal Medicine 12/08/22 Elijah Palumbo MD [address] [place] [address] Referring Physician Gastroenterology 07/11/24 Truman Dillon MD [phone] [place] [address] Surgeon Colon and Rectal Surgery 07/23/24 Davin Madsen MD [address] [place] [address] Margin Trimmer Gastroenterology 07/23/24
--- OUTSIDE RECORDS SUMMARY | 2025-06-18 12:48 | XMS_ITS | Patient Health Record ---
Author Organization [facility] Address [address] [place], [place] [address] Care Team Providers Care Rn Team Leader Name Role Phone ORESTES CARBONE Unavailable [phone] Larissa Ryan Unavailable Unavailable Reason For Referral No Information Medications Medication SIG (Take, Route, Frequency, Duration) Notes Start Date End Date Status ciclopirox 80 MG/ML Topical Solution [Penlac Nail Lacquer] ciclopirox 80 MG/ML Topical Solution [Penlac Nail Lacquer]Original Medicationciclopirox 80 MG/ML Topical Solution [Penlac Nail Lacquer] *Reorder from [employer] for eRx and Interaction Alerts* 11/05/2013 Active Plan Of Treatment No Information Insurance Providers Payer Name Payer Address Payer Phone Subscriber Number Group Number Insured Name Patient Relationship to Insured Coverage Start Date Coverage End Date Medicare Part B [place] [address] [place] [phone] [id number] EMMA GUERRA Self - patient is the insured [facility] [address] [place] [address] [id number] EMMA GUERRA Self - patient is the insured
--- OUTSIDE RECORDS SUMMARY | 2025-06-18 12:48 | XMS_ITS | Encounter Summary ---
Author Organization [facility] Address [address] [place] [address] Phone Care Team Providers Care Dental Appliance Repairer Name Role Phone Delia Harry MD Primary Care Provider Everett Arriaga MD Unavailable [phone] Jacey Handley MD Primary Care Provider [phone] Reason for Visit * Reason Comments Medication Refill Encounter Details Date Type Department Care Team (Late st Contact Info) Description 10/21/2021 Refill [facility] [address] [address] Everett Arriaga MD [address] [place] [phone] Medication Refill Social History Tobacco Use [...] Everett Arriaga MD - 10/22/2021 10:42 AM [facility] ON Ok to fill ER ON * Telephone Encounter - Ruperto Olivarez RN - 10/22/2021 10:27 AM CST Refill request from pharmacy. Refill if appropriate. ER ON documented in this encounter Plan of Treatment Upcoming Encounters Date Type Department Care Team (Late st Contact Info) Description 03/06/2026 10:45 AM CDT Lab [facility] [address] [phone] Lab, [facility] 03/06/2026 11:00 AM CDT Ancillary Procedure [facility] [address] [phone] Elizabeth De Jesus APRN, WATER SOFTENER SERVICER [address] [place] [address] [address] [place] [address] 03/06/2026 11:30 AM CDT Office Visit [facility] [address] [phone] Everett Arraiga MD [address] [place] [phone] documented as of this encounter Visit Diagnoses Diagnosis 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, estrogen receptor positive (HCC) Other osteoporosis, unspecified pathological fracture presence documented in this encounter Additional Health Concerns Assessment Noted Time PHQ-9 Depression Total Score: 1 01/13/20 21 3:49 PM HOOKER ON documented as of this encounter Care Teams Dental Appliance Repairer Relationship Specialty Start Date End Date Delia Harry MD [address] [address] PCP - General Family Medicine 08/13/19 08/16/22 Jacey Handley MD [address] [facility] [place] [address] PCP - General Internal Medicine 08/18/22 Everett Arriaga MD [address] [place] [address] Consulting Physician Oncology 10/20/20 documented as of this encounter
--- OUTSIDE RECORDS SUMMARY | 2025-06-18 12:48 | XMS_ITS | Clinical Summary ---
Author Organization [facility] Address [address] [place] [address] Care Team Providers Care Rd Scientist Name Role Phone Marco Granados MD Primary Care Provider [phone] Source Comments [facility],non-owned Affiliates and Associated Physician Practices is amultiple site organization consisting of ambulatory clinics and hospital sitesin [place], [place], [place] and [place]. This disclosure is being madepursuant to the Care Everywhere program and may not contain all information available regarding this patient. Last updated 18.[facility] Active Problems Problem Noted Date Diagnosed [...] on file Legal Sex Female 6:21 PM FLASK MAKER Gender Identity Not on file Sexual Orientation [...] MEDICARE AWV CALENDAR YEAR 2024 INFLUENZA VACCINE (#1) 2025 HEPATITIS B VACCINE Aged Out No [...] to complete this topic Insurance [facility] MEDICARE ADV SELF PAY NO INSURANCE Member Subscriber Plan / Payer (Ef fective for All Dates) Name:Emma Guerra Member ID:Not on file Relation to Subscriber:Not on file Name:EMMA GUERRA Subscriber ID:Not on file Address: [address] [place] [address] Payer ID:Not on file Group ID:Not on file Type:Self Pay Address: [place], [place] UHC MANAGED MEDICARE ADV SELF PAY NO INSURANCE Member Subscriber Plan / Payer (Ef fective for All Dates) Name:Emma Guerra Member ID:Not on file Relation to Subscriber:Not on file Name:EMMA GUERRA Subscriber ID:Not on file Address: [address] [place] [address] Payer ID:Not on file Group ID:Not on file Type:Self Pay Address: [place], [place] UHC MANAGED MEDICARE ADV Member Subscriber Plan / Payer (Ef fective 2024-Present) Name:Emma Guerra Relation to Subscriber:Self Name:Emma Guerra Payer ID:[id number] (NAIC) Type:Medicare-Managed Care Address: [address] [phone] SELF PAY NO INSURANCE Member Subscriber Plan / Payer (Ef fective for All Dates) Name:Emma Guerra Member ID:Not on file Relation to Subscriber:Not on file Name:EMMA GUERRA Subscriber ID:Not on file Address: [address] [place] [address] [place] [address] Payer ID:Not on file Group ID:Not on file Type:Self Pay Address: [place], [place] UHC MANAGED MEDICARE ADV Care Teams Rd Scientist Relationship Specialty Start Date End Date Marco Granados MD [address] [facility] [place] [phone] PCP - General Internal Medicine 11/23/17
--- OUTSIDE RECORDS SUMMARY | 2025-06-18 12:48 | XMS_ITS | Clinical Summary ---
Author Organization [facility] Address [address] [place] [address] Care Team Providers Care Seaweed Harvester Name Role Phone Jacey Handley MD Primary Care Provider [phone] Elijah Palumbo MD Unavailable [phone] Truman Dillon MD Unavailable [phone] Davin Madsen MD Unavailable [phone] Allergies Active Allergy Reactions Criticality Noted [...] (KENALOG) 0.1 % cream 1 Active zoledronic winm-gvqvbdbO-e ater (RECLAST) 5 mg/100 mL piggyback 2 [...] (07/16/2019): Added automatically from request for surgery [id number] 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 Stiffness of shoulder [...] on file Legal Sex Female 1:15 AM PAPER COATING SUPERVISOR Gender Identity Female 10/30/2020 9:29 PM PAPER COATING SUPERVISOR Sexual Orientation Straight 10/30/2020 9: 29 PM PAPER COATING SUPERVISOR Obstetrics History Last Filed Vital Signs Vital [...] 09/01/2021, 01/15/2021, 12/25/2020 Influenza Vaccine (#1) 2025 , 11/18/2021, 09/23/2020, Additional history exists Osteoporosis Screening-Bone Density Scan 01/01/2026 01/01/2024, 11/23/2023, 11/23/2023, Additional history exists DTaP/Tdap/Td Vaccine (4 - Td or Tdap) 07/21/2032 07/21/2022, 11/09/2015, 05/06/2003, Additional history exists Hepatitis B Screening Completed 09/23/2002 , 04/23/2002, 03/21/2002 Pneumococcal vaccine 65+ Completed 019, 11/29/2016, 11/19/2004 Zoster Vaccine Completed 10/26/2020, 01/2020, 10/16/2020, Additional history exists Medical Devices Implanted Type Area Poultry Dressing Worker Device Identifier Shelf Expiration Date Model / Serial / Lot Shoulder Replacement Right: Shoulder Procedures Procedure Name Priority Date/Time Associated Diagnosis Comments DEXA TBS AXIAL SKELETON BONE DENSITY 1 OR MORE SITES Schedule Routine, Read Routine (OP Routine) 01/01/2024 12:40 PM PAPER COATING SUPERVISOR Osteoporosis, unspecified osteoporosis type, unspecified pathological fracture presence from Last 3 Months or Most Recently Relevant to Health Maintenance Results * Dexa TBS Axial Skeleton Bone Density 1 or more sites (01/01/2024 12:40 PM PAPER COATING SUPERVISOR) Anatomical Region Laterality Modality Wrist, Body N/A Radiographic Daksha ging Narrative 01/03/2024 11:35 AM PAPER COATING SUPERVISOR Patient Name: Rey Blancas Date of : 1940 Date of scan: 01/01/2024 Bone mineral density was performed on a HoloTestCred Discovery Densitometer. Based on machine cross-calibration and [...] by the International Society of Clinical Densitometry. [id number] Ayo Julien MD IMG DXA PROCEDURES Final Result from Last 3 Months or Most Recently Relevant to Health Maintenance Insurance [facility] MEDICARE ADVANTAGE [facility] [place] [address] [facility] MEDICARE ADVANTAGE Advance Directives For more information, please contact: [phone] Documents on File Type Date Recorded Patient Magnet Placer Expl anation ADVANCE DIRECTIVE 10/02/2018 12:00 AM [facility] OUTPATIENT DIETITIAN FINANCIAL/MEDICAL * Full Code (Latest Code Status on File) Date Activated Date Inactivated Comments 07/19/2019 10:55 AM 07/19/2019 6:45 PM Care Teams Seaweed Harvester Relationship Specialty Start Date End Date Jacey Handley MD PCP - General Internal Medicine 12/08/22 Elijah Palumbo MD [address] [place] [address] Referring Physician Gastroenterology 07/11/24 Truman Dillon MD [phone] [place] [address] Surgeon Colon and Rectal Surgery 07/23/24 Davin Madsen MD [address] [facility] [address] [place] [address] Communication Clerk Gastroenterology 07/23/24
[2025-06-18 13:37] LABS: Hematocrit 35.7 % (37.0-47.0); Hemoglobin 12.0 g/dL (12.0-15.0); Immature Granulocyte Percent A 0.4 % (0-0.5); Lymphocytes Absolute Auto 1.26 K/mm3 (0.9-3.2); Mean Corpuscular HGB Conc 33.6 g/dl (32-36); Mean Corpuscular Hemoglobin 30.0 pg (26-34); Mean Corpuscular Volume 89.3 fl (80-100); Nucleated Red Blood Cells Absolute Auto 0.000 K/mm3 (0.0-0.012); Nucleated Red Blood Cells Perc 0.0 % (0.0-0.2); Platelet Count Result 218 k/mm3 (150-375); Red Blood Count 4.00 M/mm3 (4.2-5.4); White Blood Count 4.5 K/mm3 (4.5-10.0)
[2025-06-18 13:40] LABS: Hemoglobin A1C 5.9 % (<5.7)
[2025-06-18 13:51] LABS: Alanine Aminotransferase 16 U/L (6-35); Albumin Level 4.3 g/dL (3.5-5.1); Alkaline Phosphatase 67 U/L (38-126); Anion Gap 4 mmol/L (4-12); Aspartate Amino Transferase 31 U/L (14-36); Bilirubin,Total 1.0 mg/dL (0.2-1.3); Blood Urea Nitrogen 13 mg/dL (7-17); Calcium 9.5 mg/dL (8.4-10.2); Carbon Dioxide 28 mmol/L (22-30); Chloride 93 mmol/L (98-107); Estimated Glomerular Filt Rate > 60; Glucose 86 mg/dL (65-110); Potassium 4.3 mmol/L (3.4-5.0); Sodium 125 mmol/L (137-145); Total Protein 7.0 g/dL (6.3-8.2)
[2025-06-18 14:26] LABS: Thyroid Stimulating Hormone 2.230 uIU/mL (0.465-4.680)
== END 2025-06-18 12:45 | disposition home or self-care (01) ==
PROVIDERS: PCP Family Medicine; Visit Provider Family Medicine
DX: E03.9 Hypothyroidism, unspecified (principal); E87.1 Hypo-osmolality and hyponatremia; Z13.1 Encounter for screening for diabetes mellitus
CPT/HCPCS: 36415; 80053; 83036; 84443; 85025

== ENCOUNTER 2025-06-30 15:18 | Outpatient (CLI) | payer MEDICARE, SELFPAY ==
--- OUTSIDE RECORDS SUMMARY | 2025-06-30 15:26 | XMS_ITS | Encounter Summary ---
Author Organization [facility] Address [address] [place] [address] Phone Care Team Providers Care Network Mgr Name Role Phone Delia Harry MD Primary Care Provider [phone] Ysabel Winters MD Primary Care Provider [phone] Jacey Handley MD Primary Care Provider [phone] Elijah Palumbo MD Unavailable [phone] Truman Dillon MD Unavailable [phone] Davin Madsen MD Unavailable [phone] Encounter Details Date Type Department Care Team [...] on file Legal Sex Female 1:15 AM DYNAMOMETER REPAIRER Gender Identity Female 10/30/2020 9:29 PM DYNAMOMETER REPAIRER Sexual Orientation Straight 10/30/2020 9: 29 PM DYNAMOMETER REPAIRER documented as of this encounter Plan of Treatment Not on file documented as of this encounter Procedures Procedure Name Priority Date/Time Associated Diagnosis Comments SCAN - RADIOLOGY/IMAGING 10/28/2020 documented in this encounter Results * SCAN - RADIOLOGY/IMAGING (10/28/2020) Anatomical Region Laterality Modality Other us Provider Scanning Final Result documented in this encounter Visit Diagnoses Not on filedocumented in this encounter Care Teams Network Mgr Relationship Specialty Start Date End Date Delia Harry MD [address] [facility] [address] [place] [address] PCP - General 01/18/19 12/06/20 Ysabel Winters MD [address] [facility] [address] [place] [address] PCP - General 12/07/20 12/07/22 Jacey Handley MD [address] [address] PCP - General Internal Medicine 12/08/22 Elijah Palumbo MD [address] [place] [address] Referring Physician Gastroenterology 07/11/24 Truman Dillon MD [phone] [place] [address] Surgeon Colon and Rectal Surgery 07/23/24 Davin Madsen MD [address] [facility] [address] [place] [address] Catering Chef Gastroenterology 07/23/24 documented as of this encounter
--- OUTSIDE RECORDS SUMMARY | 2025-06-30 15:26 | XMS_ITS | Encounter Summary ---
Author Organization [facility] Address [address] [place] [address] Phone Care Team Providers Care Peoplesoft Hcm Developer Name Role Phone Delia Harry MD Primary Care Provider [phone] Ysabel Winters MD Primary Care Provider [phone] Jacey Handley MD Primary Care Provider [phone] Elijah Palumbo MD Unavailable [phone] Truman Dillon MD Unavailable [phone] Davin Madsen MD Unavailable [phone] Reason for Visit * Reason Onset Date Comments Zoom invite 09/22/2020 1:44pm YR spoke with Ms. Blancas and set her up for testing 10/01/2020 10:00am Encounter Details Date Type Department Care Team (Late st Contact Info) Description 09/22/2020 Documentation [facility] [address] [place] [address] [address] Floor [address] [place] [address] Ewelina Fung CNA Zoom invite (1:44pm YR [...] on file Legal Sex Female 1:15 AM CODER OPERATOR Gender Identity Female 10/30/2020 9:29 PM CODER OPERATOR Sexual Orientation Straight 10/30/2020 9: 29 PM CODER OPERATOR documented as of this encounter Plan of Treatment Not on file documented as of this encounter Visit Diagnoses Not on filedocumented in this encounter Care Teams Peoplesoft Hcm Developer Relationship Specialty Start Date End Date Delia Harry MD [address] [address] PCP - General 01/18/19 12/06/20 Ysabel Winters MD [address] [address] PCP - General 12/07/20 12/07/22 Jacey Handley MD [address] [address] PCP - General Internal Medicine 12/08/22 Elijah Palumbo MD [address] [place] [address] Referring Physician Gastroenterology 07/11/24 Truman Dillon MD [address] [facility] [phone] [place] [address] Surgeon Colon and Rectal Surgery 07/23/24 Davin Madsen MD [address] [facility] [address] [place] [address] Warehouse Technician Gastroenterology 07/23/24 documented as of this encounter
--- OUTSIDE RECORDS SUMMARY | 2025-06-30 15:26 | XMS_ITS | Clinical Summary ---
Author Organization [facility] Address [address] [facility] [place] [address] Care Team Providers Care Alterations Workroom Clerk Name Role Phone Marco Granados MD Primary Care Provider [phone] Source Comments [facility],non-owned Affiliates and Associated Physician Practices is amultiple site organization consisting of ambulatory clinics and hospital sitesin [place], [place], [place] and [place]. This disclosure is being madepursuant to the Care Everywhere program and may not contain all information available regarding this patient. Last updated 18.[facility] Active Problems Problem Noted Date Diagnosed Date [...] on file Legal Sex Female 6:21 PM TIMBER DEADENER Gender Identity Not on file Sexual Orientation [...] to complete this topic Insurance [facility] MEDICARE ADV SELF PAY NO INSURANCE Member Subscriber Plan / Payer (Ef fective for All Dates) Name:Emma Guerra Member ID:Not on file Relation to Subscriber:Not on file Name:EMMA GUERRA Subscriber ID:Not on file Address: [address] [place] [address] Payer ID:Not on file Group ID:Not on file Type:Self Pay Address: [place], [place] UHC MANAGED MEDICARE ADV SELF PAY NO INSURANCE Member Subscriber Plan / Payer (Ef fective for All Dates) Name:Emma Guerra Member ID:Not on file Relation to Subscriber:Not on file Name:EMMA GUERRA Subscriber ID:Not on file Address: [address] [place] [address] Payer ID:Not on file Group ID:Not on file Type:Self Pay Address: [place], [place]HC [place]NA[place]ED MEDICARE ADV Member Subscriber Plan / Payer (Ef fective 2024-Present) Name:Emma Guerra Relation to Subscriber:Self Name:Emma Guerra Payer ID:[id number] (NAIC) Type:Medicare-Managed Care Address: [address] [phone] SELF PAY NO INSURANCE Member Subscriber Plan / Payer (Ef fective for All Dates) Name:Emma Guerra Member ID:Not on file Relation to Subscriber:Not on file Name:EMMA GUERRA Subscriber ID:Not on file Address: [address] [place] [address] [place] [address] Payer ID:Not on file Group ID:Not on file Type:Self Pay Address: [place] MANAGED MEDICARE ADV Care Teams Alterations Workroom Clerk Relationship Specialty Start Date End Date Marco Granados MD [address] [facility] [place] [phone] PCP - General Internal Medicine 11/23/17
--- OUTSIDE RECORDS SUMMARY | 2025-06-30 15:26 | XMS_ITS | Clinical Summary ---
Author Organization [facility] Address [address] [place] [address] Care Team Providers Care School Of Nursing Director Name Role Phone Gen Kirk MD Unavailable [phone] Miguel Angel Tamayo MD Unavailable [phone] Kian Pitt DO Primary Care Provider [phone] Allergies Active Allergy Reactions Criticality Noted Date Comments Chlorhexidine Hives Medium 01/01/2024 Cocamide Hives Medium 01/01/2024 Formaldehyde Hives Medium 01/01/2024 Phenoxyethanol Hives Medium 01/01/2024 Trolamine (Triethanolamine) Hives Medium 01/01/20 24 Medications levothyroxine 75 MCG tablet Take 75 mcg by mouth daily. Active omeprazole 40 MG capsule Take 40 mg by mouth 2 (two) times a day. 9 Active prednisoLONE acetate 1 % ophthalmic suspension Apply 1 drop to eye weekly. Active Probiotic Product (PROBIOTIC-10) Cap Take 1 capsule by mouth nightly. Active Multiple Vitamins-Minera ls (CENTRUM SILVER) Tab Take 1 tablet by mouth daily. 30 tablet 9 Active cycloSPORINE (RESTASIS) 0.05 % ophthalmic emulsion Place 1 drop into both eyes 2 (two) times daily. 9 Active calcium carb-cholecalci ferol (CALCIUM+D3) 600-800 MG-UNIT tablet Take 1 tablet by mouth daily. Active carboxymethylce llulose 0.25 % Solution ophthalmic solution Place 1 drop into both eyes nightly as needed for Dry eyes. Active acetaminophen 325 MG tablet Take 2 tablets (650 mg total) by mouth every 4 (four) hours as needed for Pain. For Mild Pain or Fever 9 Active Additional Information Patient not taking.Reported on 05/12/2025 atorvastatin (LIPITOR) 10 MG tablet Take 1 tablet (10 mg total) by mouth nightly at bedtime. Active busPIRone (BUSPAR) 5 MG tablet Take 2 tablets (10 mg total) by mouth daily. Active cholecalciferol (VITAMIN D-[address]) 25 mcg Tab tablet Take 1 tablet (1,000 Units total) by mouth daily. Active docusate sodium (COLACE) 50 MG capsule Take 1 capsule (50 mg total) by mouth. Active famotidine (PEPCID) 40 MG tablet Take 1 tablet (40 mg total) by mouth 2 (two) times daily. Active hypromellose (ISOPTO TEARS) 0.5 % ophthalmic solution Apply 1 drop to eye. Active ibuprofen (MOTRIN) 600 MG tablet TAKE 1 TABLET BY MOUTH TWICE DAILY WITH FOOD OR MILK Active losartan (COZAAR) 100 MG tablet Take 1 tablet (100 mg total) by mouth daily. 5 Active naproxen (NAPROSYN) 375 MG tablet Active polyethylene glycol (MIRALAX) 17 GM/SCOOP powder 17 g daily. Ac tive PSYLLIUM OR Take 1 packet by mouth 3 (three) times daily. Active tiZANidine (ZANAFLEX) 2 MG tablet TAKE 1 TABLET BY MOUTH THREE TIMES DAILY NEEDED FOR JAW PAIN Active levothyroxine (SYNTHROID) 75 MCG tablet Take 1 tablet (75 mcg total) by mouth every morning. Active losartan (COZAAR) 100 MG tablet Take 1 tablet (100 mg total) by mouth daily. Active Active Problems Problem Noted Date Diagnosed Date Epigastric pain 05/12/2025 Fatigue 05/12/2025 Headache 05/12/2025 Arthritis of right temporomandibular joint 04/10 Chronic sinusitis 04/10/2025 Temporomandibular udxbx-axcl-zfhzmalhaqa syndrom e 04/10/2025 Chronic right shoulder pain 10/03/2023 Neck pain, chronic 10/03/2023 History of reverse total rep lacement of right shoulder joint 10/03/2023 Bilateral occipital neuralgia 01/20/2023 Numbness and tingling of upp er and lower extremities of both sides 01/20/2023 Unsteady gait 01/20/2023 Essential hypertension 11/09/2022 Hyponatremia 02/15/2022 Intraductal papillary mucinous neoplasm 01/12/20 Chronic sore throat 06/21/2021 Acute stress disorder 04/09/2021 Hypothyroidism 02/10/2021 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) 11/01/2019 Osteoporosis 11/01/2019 Infiltrating ductal carcinoma of breast (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 ) 05/12/2025 Travel from Last 3 Months Family History Medical History Relation Comments Breast Cancer Sister Relation Status Comments Sister Social History Tobacco Use Types Packs/Day Years Used Date Smoking Tobacco: Never Smokeless Tobacco: Never Tobacco Cessation:Counseling Given: No Comments No Sex and Gender Information Value Date Recorded Sex Assigned at Female 01/06/2025 3:13 PM MEDICAL SERVICE TECHNICIAN Legal Sex Female 7:41 PM CDT Gender Identity Not on file Sexual Orientation Not on file Last Filed Vital Signs Vital Sign Reading Time Taken Comments Blood Pressure 135/72 05/12/2025 8:05 AM CDT Pulse 7 05/12/2025 8:05 AM CDT Temperature 36.2 C (97.1 F) 09/20/2019 4:53 PM CDT Respiratory Rate 20 09/20/2019 4:53 PM CDT Oxygen Saturation 98% 05/12/2025 8:05 AM CDT Inhaled Oxygen Concentration - - Weight 50.3 kg (111 lb) 05/12/2025 8:05 AM CDT Height 162.6 cm (5' 4) 05/12/2025 8:05 AM CDT Body Mass Index 19.05 05/12/2025 8:05 AM CDT Plan of Treatment Upcoming Encounters Date Type Department Care Team (Late st Contact Info) Description 11/17/2025 9:00 AM MEDICAL SERVICE TECHNICIAN Office Visit [facility] Multispecialty Care - [address], [address] [place] [phone] Gina Lazcano MD [address] [place] [phone] Health Maintenance Due Date Last Done Comments Annual Medicare Wellness Visit 02/20/2005 COVID-19 Vaccine ( season) 2024 09/01/2021, 01/15/2021, 12/25/2020 PHQ-2 (Physician [place]) 11/20/2024 DTaP, Tdap and Td Vaccines (3 - Td or Tdap) 11/09/2025 11/09/2015, 05/06/2003, 06/01/1998 Pneumococcal Vaccine: 50+ Years Completed 09/03/2019, 11/29/2016 Zoster Vaccines Completed 10/26/2020, 01/2020, 10/16/2020, Additional history exists RSV Immunization or 60+ Years Completed 11/29/2023 Meningococcal B Vaccine Aged Out No l onger eligible based on patient's age to complete this topic Meningococcal Vaccine Aged Out No silvia sánchez eligible based on patient's age to complete this topic RSV Immunizations Under 20 Months Aged Out No longer eligible based on patient's age to complete this topic Insurance [facility] Care Teams School Of Nursing Director Relationship Specialty Start Date End Date Kian Pitt DO [address] [place] [address] PCP - General FAMILY PRACTICE 05/12/25 Gen Kirk MD [place] Carriage Operator INTERVENTIONAL CARDIOLOGY 08/28/19 Miguel Angel Tamayo MD [address] [place] [address] Referring Physician GENERAL SURGERY 08/20/19
--- OUTSIDE RECORDS SUMMARY | 2025-06-30 15:26 | XMS_ITS | Encounter Summary ---
Author Organization [facility] Address [address] [place] [address] Phone Care Team Providers Care Booth Cashier Name Role Phone Everett Arriaga MD Unavailable [phone] Jacey Handley MD Primary Care Provider [phone] Reason for Visit * Reason Onset Date Comments Canopy Call 08/09/2024 Encounter Details Date Type Department Care Team (Late st Contact Info) Description 08/09/2024 Telephone [facility] [address] [place] [address] Everett Arriaga MD [address] [place] [address] Canopy Call Social History Tobacco [...] Arriaga MD Blunk, Jennifer A., RMA; Cc [facility] Nurse Pool3 hours ago (8:40 AM) [...] CDT Lab [facility] [address] [address] Lab, Cc [facility] 03/06/2026 11:00 AM CDT Ancillary Procedure [facility] [address] [phone] Elizabeth De Jesus APRN, REINFORCING STEEL PLACER [address] [place] [address], [address] [place], [place] [phone] 03/06/2026 11:30 AM CDT Office Visit [facility] [address] [phone] Everett Arriaga MD [address] [place] [phone] documented as of this encounter Results * (ABNORMAL) CMP (COMPREHENSIVE METABOLIC PANEL) (08/30/2024 9:25 AM CDT) Glucose 97 70 - 105 mg/dL [facility] Blood Urea Nitrogen 9 7 - 25 mg/dL [facility] Creatinine 0.7 0.6 - 1.2 mg/dL [facility] Sodium 129(L) 136 - 145 mEq/L [facility] Potassium 4.8 3.5 - 5.1 mEq/L [facility] Chloride 90(L) 98 - 107 mEq/L [facility] Bicarbonate 30 21 - 31 mEq/L [facility] Total Bilirubin 1.2(H) 0.3 - 1.0 mg/dL [facility] Alk. Phosphatase 58 34 - 104 U/L [facility] Aspartate Aminotransferase 22 13 - 39 U/L [facility] Alanine Aminotransferase 12 7 - 52 U/L [facility] Total Protein 7.0 6.4 - 8.9 g/dL [facility] Albumin 4.5 3.5 - 5.7 g/dL [facility] Calcium 10.0 8.6 - 10.3 mg/dL [facility] Anion Gap 13.8 7.0 - 15.0 mEq/L [facility] Globulin 2.5 2.0 - 3.5 g/dL CANCER APPLICATIONS TRAINER [facility] EGFR 85 >60 ml/min/1. 73m2 CANCER APPLICATIONS TRAINER [facility] Comment: This eGFR is calculated using 2020 CKD-EPI Creatinine equation without race modifier based on the NKF-ASN task force recommendations Blood 08/30/2024 9:25 AM CDT Narrative CANCER APPLICATIONS TRAINER [facility] - 08/30/2024 11:54 AM CDT Release to patient->Immediate IS THE PATIENT REQUIRED TO BE FASTING FOR 8 HOURS?->No us Everett Arriaga MD CHEMISTRY ORDERABLES Final Result CANCER APPLICATIONS TRAINER [facility] [place] [address], documented in this encounter Visit Diagnoses Diagnosis 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, estrogen receptor positive (HCC)- Primary 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, estrogen receptor positive (HCC) documented in this encounter Additional Health Concerns Assessment Noted Time PHQ-9 Depression Total Score: 1 01/13/20 21 3:49 PM CARE CONNECTOR documented as of this encounter Care Teams Booth Cashier Relationship Specialty Start Date End Date [place] [address] PCP - General Internal Medicine 08/18/22 Everett Arriaga MD [address] [place] [phone] Consulting Physician Oncology 10/20/20 documented as of this encounter
--- OUTSIDE RECORDS SUMMARY | 2025-06-30 15:26 | XMS_ITS | Encounter Summary ---
Author Organization [facility] Address [address] [place] [address] Phone Care Team Providers Care Process Engineer Name Role Phone Delia Harry MD Primary Care Provider [phone] Everett Arriaga MD Unavailable [phone] Jacey Handley MD Primary Care Provider [phone] Reason for Visit * Reason Comments Medication Refill Encounter Details Date Type Department Care Team (Late st Contact Info) Description 07/17/2022 Refill [facility] [place] [address] [place] [address] Everett Arriaga MD [address] [place] [phone] Medication Refill Social History Tobacco Use [...] * Telephone Encounter - Emma Thacker, KELSEY, NURSE PRIVATE DUTY - 07/18/2022 10:20 AM CDT Okay to refill. * Telephone Encounter - Christiana Sheppard RN - 07/18/2022 8:03 AM CDT Refill request from pharmacy Last filled 10/22/2021 #[id number] Please fill if appropriate documented in this encounter Plan of Treatment Upcoming Encounters Date Type Department Care Team (Late st Contact Info) Description 03/06/2026 10:45 AM CDT Lab [facility] [address] [phone] Lab, Cc [facility] 03/06/2026 11:00 AM CDT Ancillary Procedure [facility] [address] [phone] Elizabeth De Jesus APRN, NURSE PRIVATE DUTY [address] [place] [address] [address] [place] [address] 03/06/2026 11:30 AM CDT Office Visit [facility] [address] [phone] Everett Arriaga MD [address] [place] [phone] documented as of this encounter Visit Diagnoses Diagnosis 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, estrogen receptor positive (HCC) Other osteoporosis, unspecified pathological fracture presence documented in this encounter Additional Health Concerns Assessment Noted Time PHQ-9 Depression Total Score: 1 01/13/20 21 3:49 PM TECHNOLOGY RESOURCE TEACHER documented as of this encounter Care Teams Process Engineer Relationship Specialty Start Date End Date Delia Harry MD [address] [address] PCP - General Family Medicine 08/13/19 08/16/22 Jacey Handley MD [address] [place] [address] PCP - General Internal Medicine 08/18/22 Everett Arriaga MD [address] [place] [phone] Consulting Physician Oncology 10/20/20 documented as of this encounter
--- OUTSIDE RECORDS SUMMARY | 2025-06-30 15:26 | XMS_ITS | Encounter Summary ---
Author Organization [facility] Care Team Providers Care Cupboard Builder Name Role Phone Delia Harry MD Primary Care Provider [phone] Ysabel Winters MD Primary Care Provider [phone] Jacey Handley MD Primary Care Provider [phone] Elijah Palumbo MD Unavailable [phone] Truman Dillon MD Unavailable [phone] Davin Madsen MD Unavailable [phone] Encounter Details Date Type Department Care Team (Latest Contact Info) Description 10/17/2018 Orders Only [facility] CLINCONV Provider, MD Robert [address] [place], [place] [phone] Social History Tobacco Use Types Packs/Day Years Used Date Smoking Tobacco: Never Alcohol Use Standard Drinks/Week Comments Yes 0 (1 standard drink = 0.6 oz pur e alcohol) Comments Unknown Sex and Gender Information Value Date Recorded Sex Assigned at Not on file Legal Sex Female 1:15 AM BIOMEDICAL FIELD SERVICE ENGINEER Gender Identity Female 10/30/2020 9:29 PM BIOMEDICAL FIELD SERVICE ENGINEER Sexual Orientation Straight 10/30/2020 9: 29 PM BIOMEDICAL FIELD SERVICE ENGINEER documented as of this encounter Plan of Treatment Not on file documented as of this encounter Procedures Procedure Name Priority Date/Time Associated Diagnosis Comments PROCEDURE - RESULT 10/17/2018 12 :00 AM BIOMEDICAL FIELD SERVICE ENGINEER documented in this encounter Results * PROCEDURE - RESULT (10/17/2018 12:00 AM BIOMEDICAL FIELD SERVICE ENGINEER) Narrative 10/17/2018 12:00 AM BIOMEDICAL FIELD SERVICE ENGINEER Ordered by an unspecified provider. us Historical Provider Final Res ult documented in this encounter Visit Diagnoses Not on filedocumented in this encounter Care Teams Cupboard Builder Relationship Specialty Start Date End Date Delia Harry MD [address] [facility] [address] [place] [address] PCP - General 01/18/19 12/06/20 Ysabel Winters MD [address] [address] PCP - General 12/07/20 12/07/22 Jacey Handley MD [address] [facility] [address] [place] [address] PCP - General Internal Medicine 12/08/22 Elijah Palumbo MD [address] [place] [address] Referring Physician Gastroenterology 07/11/24 Truman Dillon MD [phone] [place] [address] Surgeon Colon and Rectal Surgery 07/23/24 Davin Madsen MD [address] [facility] [address] [place] [address] Electrical Designer Gastroenterology 07/23/24 documented as of this encounter
--- OUTSIDE RECORDS SUMMARY | 2025-06-30 15:26 | XMS_ITS | Clinical Summary ---
Author Organization [facility] Address [address] [place] [address] Care Team Providers Care Associate Professor Of History Name Role Phone Jacey Handley MD Primary Care Provider [phone] Elijah Palumbo MD Unavailable [phone] Truman Dillon MD Unavailable [phone] Davin Madsen MD Unavailable [phone] Allergies Active Allergy Reactions Criticality Noted [...] (KENALOG) 0.1 % cream 1 Active zoledronic zaby-odmjwfaL-a ater (RECLAST) 5 mg/100 mL piggyback 2 [...] (07/16/2019): Added automatically from request for surgery [id number] 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 Stiffness of shoulder [...] on file Legal Sex Female 1:[address] TH[address] ORDER TAKER Gender Identity Female 10/30/2020 9:[address] THRU ORDER TAKER Sexual Orientation Straight 10/30/2020 9: [address] TH[address] ORDER TAKER Obstetrics History Last Filed Vital Signs Vital [...] history exists Medical Devices Implanted Type Area Telephone Maintainer Device Identifier Shelf Expiration Date Model / Serial / Lot Shoulder Replacement Right: Shoulder Procedures Procedure Name Priority Date/Time Associated Diagnosis Comments DEXA TBS AXIAL SKELETON BONE DENSITY 1 OR MORE SITES Schedule Routine, Read Routine (OP Routine) 01/01/2024 12:[address] TH[address] ORDER TAKER Osteoporosis, unspecified osteoporosis type, unspecified pathological fracture presence from Last 3 Months or Most Recently Relevant to Health Maintenance Results * Dexa TBS Axial Skeleton Bone Density 1 or more sites (01/01/2024 12:[address] TH[address] ORDER TAKER) Anatomical Region Laterality Modality Wrist, Body N/A Radiographic Daksha ging Narrative 01/03/2024 11:[address] TH[address] ORDER TAKER Patient Name: Rey Blancas Date of : 1940 Date of scan: 01/01/2024 Bone mineral density was performed on a [employer] Discovery Densitometer. Based on machine cross-calibration and [...] by the International Society of Clinical Densitometry. [id number] Ayo Julien MD IMG DXA PROCEDURES Final Result from Last 3 Months or Most Recently Relevant to Health Maintenance Insurance [facility] MEDICARE ADVANTAGE [facility] [place] [address] [facility] MEDICARE ADVANTAGE Advance Directives For more information, please contact: [phone] Documents on File Type Date Recorded Patient Electrophysiology Technician Expl anation ADVANCE DIRECTIVE 10/02/2018 12:00 AM POW ER OF EXECUTIVE TALENT ACQUISITION CONSULTANT FINANCIAL/MEDICAL * Full Code (Latest Code Status on File) Date Activated Date Inactivated Comments 07/19/2019 10:55 AM 07/19/2019 6:45 PM Care Teams Associate Professor Of History Relationship Specialty Start Date End Date Jacey Handley MD PCP - General Internal Medicine 12/08/22 Elijah Palumbo MD [address] [place] [address] Referring Physician Gastroenterology 07/11/24 Truman Dillon MD [phone] [place] [address] Surgeon Colon and Rectal Surgery 07/23/24 Davin Madsen MD [address] [facility] [address] [place] [address] Director Consumer Gastroenterology 07/23/24
--- OUTSIDE RECORDS SUMMARY | 2025-06-30 15:26 | XMS_ITS | Encounter Summary ---
Author Organization [facility] Address [address] [place] [address] Phone Care Team Providers Care Net Applications Developer Name Role Phone Delia Harry MD Primary Care Provider [phone] Everett Arriaga MD Unavailable [phone] Jacey Handley MD Primary Care Provider [phone] Reason for Visit * Reason Comments Medication Refill Encounter Details Date Type Department Care Team (Late st Contact Info) Description 10/21/2021 Refill [facility] [address] [phone] Everett Arriaga MD [address] [place] [phone] Medication Refill Social History Tobacco Use [...] Everett Arriaga MD - 10/22/2021 10:42 AM INDOOR PLANT TECHNICIAN Ok to fill OR PLANT TECHNICIAN * Telephone Encounter - Ruperto Olivarez RN - 10/22/2021 10:27 AM CST Refill request from pharmacy. Refill if appropriate. OR PLANT TECHNICIAN documented in this encounter Plan of Treatment Upcoming Encounters Date Type Department Care Team (Late st Contact Info) Description 03/06/2026 10:45 AM CDT Lab [facility] [address] [phone] Lab, [facility] 03/06/2026 11:00 AM CDT Ancillary Procedure [facility] [address] [phone] Elizabeth De Jesus APRN, BROADCAST OPERATIONS TECHNICIAN [address] [place] [address] [address] [place] [address] 03/06/2026 11:30 AM CDT Office Visit [facility] [address] [phone] Everett Arriaga MD [address] [place] [phone] documented as of this encounter Visit Diagnoses Diagnosis 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, estrogen receptor positive (HCC) Other osteoporosis, unspecified pathological fracture presence documented in this encounter Additional Health Concerns Assessment Noted Time PHQ-9 Depression Total Score: 1 01/13/20 21 3:49 PM INDOOR PLANT TECHNICIAN documented as of this encounter Care Teams Net Applications Developer Relationship Specialty Start Date End Date Delia Harry MD [address] [address] PCP - General Family Medicine 08/13/19 08/16/22 Jacey Handley MD [address] [facility] [place] [address] PCP - General Internal Medicine 08/18/22 Everett Arriaga MD [address] [place] [phone] Consulting Physician Oncology 10/20/20 documented as of this encounter
--- OUTSIDE RECORDS SUMMARY | 2025-06-30 15:26 | XMS_ITS | Patient Health Record ---
Author Organization [facility] Address [address] [place], [place] [phone] Care Team Providers Care Clip Loading Machine Feeder Name Role Phone DESIREORESTES CROUCH Unavailable [phone] Larissa Ryan Unavailable Unavailable Reason For Referral No Information Medications Medication SIG (Take, Route, Frequency, Duration) Notes Start Date End Date Status ciclopirox 80 MG/ML Topical Solution [[place] Nail Lacquer] ciclopirox 80 MG/ML Topical Solution [[place] Nail Lacquer]Original Medicationciclopirox 80 MG/ML Topical Solution [[place] Nail Lacquer] *Reorder from [employer] for eRx and Interaction Alerts* 11/05/2013 Active Plan Of Treatment No Information Insurance Providers Payer Name Payer Address Payer Phone Subscriber Number Group Number Insured Name Patient Relationship to Insured Coverage Start Date Coverage End Date Medicare Part B [place] [address] [place] [phone] [id number] EMMA GUERRA Self - patient is the insured [facility] [address] [place] [address] [id number] EMMA GUERRA Self - patient is the insured
--- OUTSIDE RECORDS SUMMARY | 2025-06-30 15:26 | XMS_ITS | Encounter Summary ---
Author Organization [facility] Facility Care Team Providers Care Dials Inspector Name Role Phone Delia Harry MD Primary Care Provider [phone] Ysabel Winters MD Primary Care Provider [phone] Jacey Handley MD Primary Care Provider [phone] Elijah Palumbo MD Unavailable [phone] Truman Dillon MD Unavailable [phone] Davin Madsen MD Unavailable [phone] Encounter Details Date Type Department Care Team (Latest Contact Info) Description 09/24/2018 Orders Only [facility] Provider, MD Robert [address] [place] [address] Social History Tobacco Use Types Packs/Day Years Used Date Smoking Tobacco: Never Alcohol Use Standard Drinks/Week Comments Yes 0 (1 standard drink = 0.6 oz pur e alcohol) Comments Unknown Sex and Gender Information Value Date Recorded Sex Assigned at Not on file Legal Sex Female 1:15 AM NEWSCAST PRODUCER Gender Identity Female 10/30/2020 9:29 PM NEWSCAST PRODUCER Sexual Orientation Straight 10/30/2020 9: 29 PM NEWSCAST PRODUCER documented as of this encounter Plan of Treatment Not on file documented as of this encounter Procedures Procedure Name Priority Date/Time Associated Diagnosis Comments PROCEDURE - RESULT 09/24/2018 12 :00 AM NEWSCAST PRODUCER documented in this encounter Results * PROCEDURE - RESULT (09/24/2018 12:00 AM NEWSCAST PRODUCER) Narrative 09/24/2018 12:00 AM NEWSCAST PRODUCER Ordered by an unspecified provider. us Historical Provider Final Res ult documented in this encounter Visit Diagnoses Not on filedocumented in this encounter Care Teams Dials Inspector Relationship Specialty Start Date End Date Delia Harry MD [address] [facility] [address] [place] [address] PCP - General 01/18/19 12/06/20 Ysabel Winters MD [address] [address] PCP - General 12/07/20 12/07/22 Jacey Handley MD [address] [facility] [address] [place] [address] PCP - General Internal Medicine 12/08/22 Elijah Palumbo MD [address] [place] [address] Referring Physician Gastroenterology 07/11/24 Truman Dillon MD [phone] [place] [address] Surgeon Colon and Rectal Surgery 07/23/24 Davin Madsen MD [address] [facility] [address] [place] [address] Restoration Officer Gastroenterology 07/23/24 documented as of this encounter
--- OUTSIDE RECORDS SUMMARY | 2025-06-30 15:26 | XMS_ITS | Encounter Summary ---
Author Organization [facility] Address [address] [place] [address] Phone Care Team Providers Care Saturator Name Role Phone Delia Harry MD Primary Care Provider [phone] Ysabel Winters MD Primary Care Provider [phone] Jacey Handley MD Primary Care Provider [phone] Elijah Palumbo MD Unavailable [phone] Truman Dillon MD Unavailable [phone] Davin Madsen MD Unavailable [phone] Encounter Details Date Type Department Care Team (Late st Contact Info) Description 10/24/2019 Orders Only [facility] Gastroenterology [address] [facility] Office Building [address] [place] [id number] Lolis Mcallister MD [address] [place] [address] [address] [place] [address] Social History Tobacco Use Types Packs/Day Years Used Date Smoking Tobacco: Never Smokeless Tobacco: Never Alcohol Use Standard Drinks/Week Comments Yes 2 (1 standard drink = 0.6 oz pur e alcohol) Comments No Sex and Gender Information Value Date Recorded Sex Assigned at Not on file Legal Sex Female 1:15 AM VTC TECHNICIAN Gender Identity Female 10/30/2020 9:29 PM VTC TECHNICIAN Sexual Orientation Straight 10/30/2020 9: 29 PM VTC TECHNICIAN documented as of this encounter Plan of Treatment Not on file documented as of this encounter Visit Diagnoses Not on filedocumented in this encounter Care Teams Saturator Relationship Specialty Start Date End Date Delia Harry MD [address] [facility] [address] [place] [address] PCP - General 01/18/19 12/06/20 Ysabel Winters MD [address] [facility] [address] [place] [address] PCP - General 12/07/20 12/07/22 Jacey Handley MD [address] [facility] [address] [place] [address] PCP - General Internal Medicine 12/08/22 Elijah Palumbo MD [address] [place] [address] Referring Physician Gastroenterology 07/11/24 Truman Dillon MD [phone] [place] [address] Surgeon Colon and Rectal Surgery 07/23/24 Davin Madsen MD [address] [facility] [address] [place] [address] Stock Parts Inspector Gastroenterology 07/23/24 documented as of this encounter
--- OUTSIDE RECORDS SUMMARY | 2025-06-30 15:26 | XMS_ITS | Clinical Summary ---
Author Organization [facility] Address [address] [place] [address] Phone Care Team Providers Care Stamp Machine Servicer Name Role Phone Jacey Handley MD Primary Care Provider [phone] Allergies No known active allergies Medications acetaminophen [...] Comments Blood Pressure 128/70 11/09/2022 8:47 AM PRODUCE DEPARTMENT MANAGER Pulse 72 11/09/2022 8:47 AM PRODUCE DEPARTMENT MANAGER Temperature 35.3 C (95.5 F) 11/09/2022 8:47 AM PRODUCE DEPARTMENT MANAGER Respiratory Rate - - Oxygen Saturation - - Inhaled Oxygen Concentration - - Weight 50.3 kg (111 lb) 11/09/2022 8:47 AM PRODUCE DEPARTMENT MANAGER Height 165.1 cm (5' 5) 11/09/2022 8:47 AM PRODUCE DEPARTMENT MANAGER Body Mass Index 18.47 11/09/2022 8:47 AM PRODUCE DEPARTMENT MANAGER Plan of Treatment Health Maintenance Due Date Last Done Comments COVID-19 Vaccine ( season) 2024 09/01/2021, 01/15/2021, 12/25/2020 Influenza Vaccine (#1) 2025 09/03/2022 Pneumococcal PPSV23/PCV13 65 + Years / Low and Medium Risk Completed 09/03/2019, 11/29/2016 Insurance [employer] MEDICARE Care Teams Stamp Machine Servicer Relationship Specialty Start Date End Date Jacey Handley MD [address] [place] [address] PCP - General Internal Medicine 10/10/22
--- OUTSIDE RECORDS SUMMARY | 2025-06-30 15:26 | XMS_ITS | Encounter Summary ---
Author Organization [facility] Address [address] [place] [address] Phone Care Team Providers Care Freight Brakeman Name Role Phone Everett Arriaga MD Unavailable [phone] Jacey Handley MD Primary Care Provider [phone] Encounter Details Date Type Department Care Team (Late Contact Info) Description 08/12/2024 Telephone [facility] [address] [address] Everett Arriaga MD [address] [place] [address] Social History Tobacco Use Types Packs/Day [...] OF [address] [address] Lab, [facility] 03/06/2026 11:00 AM CDT Ancillary Procedure [facility] [address] [address] Elizabeth De Jesus APRN, ELECTRIC WELDER [address] [place] [address] [address] [place] [address] 03/06/2026 11:30 AM CDT Office Visit [facility] [address] [address] Everett Arriaga MD [address] [place] [phone] documented as of this encounter Visit Diagnoses Not on filedocumented in this encounter Additional Health Concerns Assessment Noted Time PHQ-9 Depression Total Score: 1 01/13/20 21 3:49 PM ONLINE PRODUCER documented as of this encounter Care Teams Freight Brakeman Relationship Specialty Start Date End Date Jacey Handley MD COUNTRY [facility] [place] [address] PCP - General Internal Medicine 08/18/22 Everett Arriaga MD [address] [place] [phone] Consulting Physician Oncology 10/20/20 documented as of this encounter
--- OUTSIDE RECORDS SUMMARY | 2025-06-30 15:26 | XMS_ITS | Clinical Summary ---
Author Organization [facility] Address [address], [facility] [address] [place] [address] Phone Care Team Providers Care It Generalist Name Role Phone Everett Arriaga MD Unavailable [phone] Jacey Handley MD Primary Care Provider [phone] Allergies Active Allergy Reactions Criticality Noted Date [...] Lnp-s, Pf, 3 0 Mcg/0.3 Ml Dose ([employer]) 01/15/2021,12/25/2020 Hepatitis A Vaccine 06/25/2019,03/19/2018 Hepatitis A, [...] AM CDT Lab [facility] [address] [address] Lab, [facility] 03/06/2026 11:00 AM CDT Ancillary Procedure [facility] [address] [address] Elizabeth De Jesus, STEREO EQUIPMENT REPAIRER, ENTRY LEVEL SOFTWARE ENGINEER [address] [place] [address], [address] [place], [place] [id number] 03/06/2026 11:30 AM CDT Office Visit [facility] [address] [address] Everett Arriaga MD [address] [place] [phone] Health Maintenance Due Date Last Done [...] Procedure Name Priority Date/Time Associated Diagnosis Comments [facility] BONE DENSITOMETRY AXIAL SKELETON Routine 11/23/2023 9:58 AM SKIDWAY WORKER Encounter for monitoring aromatase inhibitor therapy from Last 3 Months or Most Recently Relevant to Health Maintenance Results * [facility] BONE DENSITOMETRY AXIAL SKELETON (11/23/2023 9:58 AM SKIDWAY WORKER) Anatomical Region Laterality Modality BODY N/A Other Narrative 11/23/2023 11:24 AM SKIDWAY WORKER EXAMINATION: [facility] BONE DENSITOMETRY AXIAL SKELETON INDICATIONS: Encounter for [...] Signature: 11/23/2023 11:24:30 us Emma Martínez APRN, ENTRY LEVEL SOFTWARE ENGINEER IMG DEXA ORDERABL ES Final Result from Last 3 Months or Most Recently Relevant to Health Maintenance Insurance MEDICARE C [facility] Care Teams It Generalist Relationship Specialty Start Date End Date Jacey Handley MD [address] [facility] [place] [address] PCP - General Internal Medicine 08/18/22 Everett Arriaga MD [address] [place] [id number] Consulting Physician Oncology 10/20/20
[2025-06-30 16:18] LABS: Sodium 128 mmol/L (137-145)
== END 2025-06-30 15:19 | disposition home or self-care (01) ==
LOC: ANHLAB 15:20
PROVIDERS: PCP Family Medicine; Visit Provider Family Medicine
DX: E87.1 Hypo-osmolality and hyponatremia (principal); R42 Dizziness and giddiness
CPT/HCPCS: 36415; 84295

== ENCOUNTER → 2025-07-09 15:48 | Outpatient (CLI) | payer MEDICARE, SELFPAY ==
--- NOTE | ~2025-07-09 | XR_ITS ---
XR abdomen/kub 1V 07/09/2025 16:04 Indication: Constipation Procedure: KUB Comparison: 04/19/2023 Findings: Bowel gas pattern nonobstructive. Moderate colonic fecal loading. Moderate gastric distention. No obstruction. Mild levocurvature of the thoracolumbar spine. No abnormal calcifications. Impression: 1: Nonobstructive bowel gas pattern. Moderate colonic fecal loading. Reviewed, dictated and finalized at location A. Impression: 1: Nonobstructive bowel gas pattern. Moderate colonic fecal loading.
== END ==
PROVIDERS: PCP Family Medicine; Visit Provider Family Medicine
DX: K59.00 Constipation, unspecified (principal)
CPT/HCPCS: 74018

== ENCOUNTER 2025-07-19 11:10 | Emergency (ER) | payer MEDICARE, SELFPAY ==
[2025-07-19 11:15] VITALS: BP 126/91; PULSE 91; RESP 16; TEMP 36.6; O2SAT 99
--- NOTE | 2025-07-19 11:38 | ED.GENADULT ---
HPI - General Adult General Chief complaint: Allergic Reaction Stated complaint: Bee Sting Time Seen by Provider: 07/19/25 11:38 Source: patient, RN notes reviewed and old records reviewed Mode of arrival: ambulatory Limitations: no limitations History of Present Illness HPI narrative: 85 year old female who presents to [facility] with complaints of doing some yard work and encountered bees nest and has 6 bee stings on her body. She states that she cleansed with alcohol and applied some baking soda to stings but they still are burning. Patient reports that she feels anxious denies any shortness of breath or any difficulty with her swallowing. Patient states that she needs a shot for the stings.Patient has sting to left facial cheek, one to left hand left forearm ,right arm and one on each lower leg. Patient does not have any acute swelling to sites some redness noted . MD complaint: 6 bee stings local skin reactions Onset (ago): hour(s) (within past hour prior to arrival) Severity scale (1-10): 10 Quality: burning Treatments prior to arrival: other (alcohol to sites and baking soda) Related Data Home Medications ?Medication ?Instructions ?Recorded ?Confirmed ?Last Taken ?Type cholecalciferol (vitamin D3) 625 625 mcg PO DAILY 02/22/22 07/09/25 Unknown History mcg (25,000 unit) capsule levothyroxine 75 mcg capsule 75 mcg PO DAILY 06/13/23 07/09/25 Unknown History gwmflbseqrqj-lwslqzza-avwjdb 1 tablet PO DAILY 06/30/23 07/09/25 Unknown History tablet (Multivitamin 50 Plus tablet) polyethylene glycol 3350 17 17 g PO .PRN 09/12/23 07/09/25 Unknown History gram/dose oral powder (Miralax) Alpha GPC, phosphatidylserine, PO DAILY 03/04/25 07/09/25 Unknown History bacopa monnieri, huperazine-a, ginkgo biloba propylene glycol 0.6 % eye drops 1 drp EACH EYE BID PRN 03/04/25 07/09/25 Unknown History (Systane Balance) atorvastatin 20 mg tablet (Lipitor) 20 mg PO DAILY 03/20/25 07/09/25 Unknown History docusate sodium 100 mg capsule 100 mg PO DAILY 03/20/25 07/09/25 Unknown History famotidine 40 mg tablet 40 mg PO DAILY 03/20/25 07/09/25 Unknown History sennosides 8.6 mg tablet (Senna 8.6 mg PO DAILY PRN 03/20/25 07/09/25 Unknown History Lax) Allergies Allergy/AdvReac Type Severity Reaction Status Date / Time No Known Allergies Allergy Verified 07/09/25 14:42 Review of Systems Review of Systems: CONSTITUTIONAL: Denies fever, chills, or sweats. EYES: Denies visual changes, redness, or discharge. ENT: Denies rhinorrhea, congestion, sore throat, or otalgia. CARDIOVASCULAR: Denies chest pain, palpitations, or edema. RESPIRATORY: Denies cough or dyspnea. GASTROINTESTINAL: Denies abdominal pain, nausea, vomiting, or diarrhea. GENITOURINARY: Denies dysuria or hematuria. SKIN: Denies rash or itching, has 6 bee stings on body with local redness reports burning pain to sites of bee stings MUSCULOSKELETAL: Denies back pain, joint pain, or myalgia. NEUROLOGIC: Denies headache, numbness, or weakness. PSYCHIATRIC: Positive for anxiety or depression. All systems reviewed & are unremarkable except as noted in HPI and below PMFSH Past Medical History Medical History Anxiety Chronic hyponatremia Abdominal bloating Irritable bowel syndrome with constipation Memory loss Encounter to establish care Headache around the eyes Hypo-osmolality and hyponatremia Epigastric discomfort Epigastric pain Nausea Hx of malignant neoplasm of nasal cavity Hx of breast cancer Adrenal insufficiency Hypothyroidism Surgical History Surgical History Hx of hysterectomy History of right shoulder replacement Family History Family History Sibling Breast cancer Social History Social History Smoking status: Never smoker Alcohol intake: current Alcohol use details: occasional Substance use: never Substance use type: does not use Do You Feel Safe in your Home?: Yes Lack of Transportation: No Lack of Food: Never True Current Housing: I Have Housing Concerned About Future Housing: No Difficulty Paying Gas/Electric Bills: No Difficulty Paying for Meds: No Currently Unemployed: No Education: Master's Degree or Higher Difficulty w/ Childcare or Family Care: No Living arrangements: [facility] Gender identity (if verbalized by the patient): Female Spiritual care concerns: No Comments At time of signature, agree with nursing past medical, surgical, social and family history. There is no relevant family history pertinent to the presenting complaint Exam Narrative: GENERAL: Well-appearing, well-nourished, and in no acute distress, extremely anxious. HEAD: Normocephalic, atraumatic. EYES: PERRLA and EOMI. ENT: Nares clear, no rhinorrhea or epistaxis. Mucous membranes moist.no difficulty with swallowing NECK: Supple.no lymphadenopathy CHEST: Clear to auscultation. No respiratory distress.SAO2 99% on room air, no cough noted or any wheezing HEART: Regular rate and rhythm. No murmur heard. Normal peripheral pulses. ABDOMEN: Soft, nontender, nondistended, normal active bowel sounds. EXTREMITIES: Normal range of motion. No edema. SKIN: Warm, dry, no rash.has 6 bee stings on body one to left check, left hand, left forearm, right arm and one to each lower leg NEURO: No focal deficits. Alert and oriented x3. Course Course Emergency Course: Patient is aware of diagnosis, understands and agrees to treatment plan.? Anticipatory guidance given.? Patient agrees to follow-up as directed and is aware of reasons to seek care at the emergency department. Portions of this record may have been created with voice recognition software Level of Care: Express Care Visit Vital Signs Vital signs: Vital Signs Temperature 36.6 C 07/19/25 11:15 Pulse Rate 91 07/19/25 11:15 Respiratory Rate 16 07/19/25 11:15 Blood Pressure 126/91 H 07/19/25 11:15 Pulse Oximetry 99 07/19/25 11:15 Oxygen Delivery Room Air 07/19/25 11:15 Temperature 36.6 C 07/19/25 11:15 Pulse Rate 91 07/19/25 11:15 Respiratory Rate 16 07/19/25 11:15 Blood Pressure 126/91 H 07/19/25 11:15 Pulse Oximetry 99 07/19/25 11:15 Oxygen Delivery Room Air 07/19/25 11:15 Reviewed Medical Decision Making MDM Narrative Medical decision making narrative: Exam findings and imaging show no acute concerns or changes; patient is non-toxic appearing and is in no distress.? Patient is appropriate for outpatient treatment and follow-up Patient medicated with Benadryl 50mg IM for local skin reaction of bee skin. Differential Diagnosis Differential Diagnosis: bee stings X6, local skin reaction to bee stings, acute situation anxiety Medical Records Medical records reviewed: Yes I reviewed the external patient's medical records. Vital Signs Vital Signs: Vital Signs Temperature 36.6 C 07/19/25 11:15 Pulse Rate 91 07/19/25 11:15 Respiratory Rate 16 07/19/25 11:15 Blood Pressure 126/91 H 07/19/25 11:15 Pulse Oximetry 99 07/19/25 11:15 Oxygen Delivery Room Air 07/19/25 11:15 Temperature 36.6 C 07/19/25 11:15 Pulse Rate 91 07/19/25 11:15 Respiratory Rate 16 07/19/25 11:15 Blood Pressure 126/91 H 07/19/25 11:15 Pulse Oximetry 99 07/19/25 11:15 Oxygen Delivery Room Air 07/19/25 11:15 reviewed Critical Care Time Critical Care Time Critical Care Time: No Discharge Plan Discharge Clinical Impression: Accidental bee sting, Anxiety Patient Disposition: Home Condition: Stable Instructions: Insect Bite or Sting (ED) Additional Instructions: May apply OTC Benadryl ointment to bee stings watch for any infection--redness, swelling, drainage Tylenol or Ibuprofen for any fever or pain follow up with PCP in 7-10 days for a wound check recheck if develop fever, chills, increasing symptom Go to the ER if your symptoms become worse of if ANY new symptoms develop Zyrtec daily and oral Benadryl prn for itching If your symptoms persist, change or worsen significantly before you can contact your personal physician then please, without delay, go to the emergency department for further evaluation. Follow-up with PCP in 7-10 days or sooner if needed Follow up with PCP soon in regards to your blood pressure which is elevated above threshold for referral. Blood pressure above 120/80 may indicate pre-hypertension. Patient Language: Kyrgyz Prescriptions: No Action levothyroxine 75 mcg capsule 75 mcg PO DAILY polyethylene glycol 3350 [Miralax] 17 gram/dose powder 17 g PO .PRN tizanidine 2 mg tablet 2 mg PO TID PRN (Reason: jaw pain) Qty: 90 0RF sennosides [Senna Lax] 8.6 mg tablet 8.6 mg PO DAILY PRN docusate sodium 100 mg capsule 100 mg PO DAILY famotidine 40 mg tablet 40 mg PO DAILY atorvastatin [Lipitor] 20 mg tablet 20 mg PO DAILY magnesium sulfate (laxative) 495 mg/5 gram granules 2 tsp PO DAILY PRN (Reason: constipation) Qty: 1810 0RF cholecalciferol (vitamin D3) 625 mcg (25,000 unit) capsule 625 mcg PO DAILY Systane Balance 0.6 % drops 1 drp EACH EYE BID PRN Alpha GPC, phosphatidylserine, bacopa monnieri, huperazine-a, ginkgo biloba PO DAILY Linzess 145 mcg capsule 145 mcg PO QAM Qty: 30 6RF Multivitamin 50 Plus Tablet 1 tablet PO DAILY acetaminophen 500 mg tablet 1,000 mg PO TID PRN (Reason: kerri) 7 Days Qty: 42 0RF buspirone 5 mg tablet See Rx Instructions .ROUTE .COMPLEX Qty: 90 0RF Dose Instruction: Take 2 tablets by mouth once daily Rx Instructions: Take 2 tablets by mouth once daily amlodipine [Norvasc] 5 mg tablet 5 mg PO DAILY Qty: 90 1RF losartan 50 mg tablet 50 mg PO DAILY Qty: 90 1RF Follow-up/Referrals: PHYSICIAN,CLINICAL ASSISTANT PROFESSOR [Primary Care Provider, Internal Medicine] Time of Disposition: 11:59 Quality [place] Coma Scale Eyes: Open Verbal: Oriented and Alert Motor: Follows Commands Kayli Coma Total Score: 15
== END 2025-07-19 12:04 | disposition home or self-care (01) ==
PROVIDERS: Emergency Provider Registered Nurse
DX: T63.441A Toxic effect of venom of bees, accidental (unintentional), initial encounter (principal); F41.9 Anxiety disorder, unspecified; E03.9 Hypothyroidism, unspecified; Z85.3 Personal history of malignant neoplasm of breast; Z96.611 Presence of right artificial shoulder joint
CPT/HCPCS: 96372; 99213; G0463; J1200

== ENCOUNTER 2025-07-28 12:26 | Outpatient (CLI) | payer MEDICARE, SELFPAY ==
--- NOTE | ~2025-07-28 | XR_ITS ---
EXAM/ PROCEDURE: XR ankle LT min 3V - 07/28/2025 12:40 CDT HISTORY: 85 years old Female with M25.572 - Pain in left ankle and joints of left foot COMPARISON: None available TECHNIQUE: Four view(s) FINDINGS/ IMPRESSION: There are no fractures or dislocations.Joint space narrowing, subchondral sclerosis, subchondral cyst formation and osteophyte formation, compatible with mild osteoarthritis. Reviewed, dictated and finalized at location N.
--- OUTSIDE RECORDS SUMMARY | 2025-07-28 12:31 | XMS_ITS | Clinical Summary ---
Author Organization [facility] Address [address] [place] [address] Phone Care Team Providers Care Inductor Tester Name Role Phone Jacey Handley MD Primary Care Provider [phone] Allergies No known active allergies Medications acetaminophen [...] Comments Blood Pressure 128/70 11/09/2022 8:47 AM INFORMATION SYSTEMS SUPERVISOR Pulse 72 11/09/2022 8:47 AM INFORMATION SYSTEMS SUPERVISOR Temperature 35.3 C (95.5 F) 11/09/2022 8:47 AM INFORMATION SYSTEMS SUPERVISOR Respiratory Rate - - Oxygen Saturation - - Inhaled Oxygen Concentration - - Weight 50.3 kg (111 lb) 11/09/2022 8:47 AM INFORMATION SYSTEMS SUPERVISOR Height 165.1 cm (5' 5) 11/09/2022 8:47 AM INFORMATION SYSTEMS SUPERVISOR Body Mass Index 18.47 11/09/2022 8:47 AM INFORMATION SYSTEMS SUPERVISOR Plan of Treatment Health Maintenance Due Date Last Done Comments COVID-19 Vaccine ( season) 2025 09/01/2021, 01/15/2021, 12/25/2020 Influenza Vaccine (#1) 2025 09/03/2022 Pneumococcal PPSV23/PCV13 65 + Years / Low and Medium Risk Completed 09/03/2019, 11/29/2016 Insurance [employer] MEDICARE Care Teams Inductor Tester Relationship Specialty Start Date End Date Jacey Handley MD [address] [place] [address] PCP - General Internal Medicine 10/10/22
--- OUTSIDE RECORDS SUMMARY | 2025-07-28 12:31 | XMS_ITS | Encounter Summary ---
Author Organization [facility] Address [address] [place] [address] Phone Care Team Providers Care Internal Control Manager Name Role Phone Delia Harry MD Primary Care Provider [phone] Ysabel Winters MD Primary Care Provider [phone] Jacey Handley MD Primary Care Provider [phone] Elijah Palumbo MD Unavailable [phone] Truman Dillon MD Unavailable [phone] Davin Madsen MD Unavailable [phone] Encounter Details Date Type Department Care Team [...] on file Legal Sex Female 1:15 AM COUNTER FORMER Gender Identity Female 10/30/2020 9:29 PM COUNTER FORMER Sexual Orientation Straight 10/30/2020 9: 29 PM COUNTER FORMER documented as of this encounter Plan of Treatment Not on file documented as of this encounter Procedures Procedure Name Priority Date/Time Associated Diagnosis Comments SCAN - RADIOLOGY/IMAGING 10/28/2020 documented in this encounter Results * SCAN - RADIOLOGY/IMAGING (10/28/2020) Anatomical Region Laterality Modality Other us Provider Scanning Final Result documented in this encounter Visit Diagnoses Not on filedocumented in this encounter Care Teams Internal Control Manager Relationship Specialty Start Date End Date Delia Harry MD [address] [facility] [address] [place] [address] PCP - General 01/18/19 12/06/20 Ysabel Winters MD [address] [facility] [address] [place] [address] PCP - General 12/07/20 12/07/22 Jacey Handley MD [address] [address] PCP - General Internal Medicine 12/08/22 Elijah Palumbo MD [address] [place] [address] Referring Physician Gastroenterology 07/11/24 Truman Dillon MD [phone] [place] [address] Surgeon Colon and Rectal Surgery 07/23/24 Davin Madsen MD [address] [facility] [address] [place] [address] Dinkey Locomotive Operator Gastroenterology 07/23/24 documented as of this encounter
--- OUTSIDE RECORDS SUMMARY | 2025-07-28 12:31 | XMS_ITS | Encounter Summary ---
Author Organization [facility] Address [address] [place] [address] Phone Care Team Providers Care Wholesale Agronomist Name Role Phone Delia Harry MD Primary Care Provider [phone] Ysabel Winters MD Primary Care Provider [phone] Jacey Handley MD Primary Care Provider [phone] Elijah Palumbo MD Unavailable [phone] Truman Dillon MD Unavailable [phone] Davin Madsen MD Unavailable [phone] Encounter Details Date Type Department Care Team (Late st Contact Info) Description 10/24/2019 Orders Only [facility] Gastroenterology 10 [facility] Office Building [address] [place] [phone] Lolis Mcallister MD [address] [place] [address] [address] [place] [address] Social History Tobacco Use Types Packs/Day Years Used Date Smoking Tobacco: Never Smokeless Tobacco: Never Alcohol Use Standard Drinks/Week Comments Yes 2 (1 standard drink = 0.6 oz pur e alcohol) Comments No Sex and Gender Information Value Date Recorded Sex Assigned at Not on file Legal Sex Female 1:15 AM MEAL PACKER Gender Identity Female 10/30/2020 9:29 PM MEAL PACKER Sexual Orientation Straight 10/30/2020 9: 29 PM MEAL PACKER documented as of this encounter Plan of Treatment Not on file documented as of this encounter Visit Diagnoses Not on filedocumented in this encounter Care Teams Wholesale Agronomist Relationship Specialty Start Date End Date Delia Harry MD [address] [facility] [address] [place] [address] PCP - General 01/18/19 12/06/20 Ysabel Winters MD [address] [facility] [address] [place] [address] PCP - General 12/07/20 12/07/22 Jacey Handley MD [address] [facility] [address] [place] [address] PCP - General Internal Medicine 12/08/22 Elijah Palumbo MD [address] [place] [address] Referring Physician Gastroenterology 07/11/24 Truman Dillon MD [phone] [place] [address] Surgeon Colon and Rectal Surgery 07/23/24 Davin Madsen MD [address] [facility] [address] [place] [address] Academic Physician Gastroenterology 07/23/24 documented as of this encounter
--- OUTSIDE RECORDS SUMMARY | 2025-07-28 12:31 | XMS_ITS | Encounter Summary ---
Author Organization [facility] Address [address] [place] [address] Phone Care Team Providers Care Clay Machine Operator Name Role Phone Delia Harry MD Primary Care Provider [phone] Ysabel Winters MD Primary Care Provider [phone] Jacey Handely MD Primary Care Provider [phone] Elijah Palumbo MD Unavailable [phone] Truman Dillon MD Unavailable [phone] Davin Madsen MD Unavailable [phone] Reason for Visit * Reason Onset Date Comments Zoom invite 09/22/2020 1:44pm YR spoke with Ms. Blancas and set her up for testing 10/01/2020 10:00am Encounter Details Date Type Department Care Team (Late st Contact Info) Description 09/22/[address] [facility] [address] [place] [address] First Floor [address] [place] [phone] Ewelina Fung CNA Zoom invite (1:44pm YR [...] on file Legal Sex Female 1:15 AM BRANCH ASSOCIATE Gender Identity Female 10/30/2020 9:29 PM BRANCH ASSOCIATE Sexual Orientation Straight 10/30/2020 9: 29 PM BRANCH ASSOCIATE documented as of this encounter Plan of Treatment Not on file documented as of this encounter Visit Diagnoses Not on filedocumented in this encounter Care Teams Clay Machine Operator Relationship Specialty Start Date End Date Delia Harry MD [address] [address] PCP - General 01/18/19 12/06/20 Ysabel Winters MD [address] [address] PCP - General 12/07/20 12/07/22 Jacey Handley MD [address] [address] PCP - General Internal Medicine 12/08/22 Elijah Palumbo MD [address] [place] [address] Referring Physician Gastroenterology 07/11/24 Truman Dillon MD [phone] [place] [address] Surgeon Colon and Rectal Surgery 07/23/24 Davin Madsen MD [address] [place] [address] Social Service Agency Director Gastroenterology 07/23/24 documented as of this encounter
--- OUTSIDE RECORDS SUMMARY | 2025-07-28 12:31 | XMS_ITS | Encounter Summary ---
Author Organization [facility] Care Team Providers Care Order Dispatcher Name Role Phone Delia Harry MD Primary Care Provider [phone] Ysabel Winters MD Primary Care Provider [phone] Jacey Handley MD Primary Care Provider [phone] Elijah Palumbo MD Unavailable [phone] Truman Dillon MD Unavailable [phone] Davin Madsen MD Unavailable [phone] Encounter Details Date Type Department Care Team (Latest Contact Info) Description 09/24/2018 Orders Only [facility] CLINCONV Provider, MD Robert [address] [place] [address] Social History Tobacco Use Types Packs/Day Years Used Date Smoking Tobacco: Never Alcohol Use Standard Drinks/Week Comments Yes 0 (1 standard drink = 0.6 oz pur e alcohol) Comments Unknown Sex and Gender Information Value Date Recorded Sex Assigned at Not on file Legal Sex Female 1:15 AM TELESALES AGENT Gender Identity Female 10/30/2020 9:29 PM TELESALES AGENT Sexual Orientation Straight 10/30/2020 9: 29 PM TELESALES AGENT documented as of this encounter Plan of Treatment Not on file documented as of this encounter Procedures Procedure Name Priority Date/Time Associated Diagnosis Comments PROCEDURE - RESULT 09/24/2018 12 :00 AM TELESALES AGENT documented in this encounter Results * PROCEDURE - RESULT (09/24/2018 12:00 AM TELESALES AGENT) Narrative 09/24/2018 12:00 AM TELESALES AGENT Ordered by an unspecified provider. us Historical Provider Final Res ult documented in this encounter Visit Diagnoses Not on filedocumented in this encounter Care Teams Order Dispatcher Relationship Specialty Start Date End Date Delia Harry MD [address] [facility] [address] [place] [address] PCP - General 01/18/19 12/06/20 Ysabel Winters MD [address] [address] PCP - General 12/07/20 12/07/22 Jacey Handley MD [address] [facility] [address] [place] [address] PCP - General Internal Medicine 12/08/22 Elijah Palumbo MD [address] [place] [address] Referring Physician Gastroenterology 07/11/24 Truman Dillon MD [phone] [place] [address] Surgeon Colon and Rectal Surgery 07/23/24 Davin Madsen MD [address] [facility] [address] [place] [address] Checker And Packer Gastroenterology 07/23/24 documented as of this encounter
--- OUTSIDE RECORDS SUMMARY | 2025-07-28 12:31 | XMS_ITS | Encounter Summary ---
Author Organization [facility] Care Team Providers Care Bow Maker Production Name Role Phone Delia Harry MD Primary Care Provider [phone] Ysabel Winters MD Primary Care Provider [phone] Jacey Handley MD Primary Care Provider [phone] Elijah Palumbo MD Unavailable [phone] Truman Dillon MD Unavailable [phone] Davin Madsen MD Unavailable [phone] Encounter Details Date Type Department Care Team (Latest Contact Info) Description 10/17/2018 Orders Only [facility] CLINCONV Provider, MD Robert [address] [place] [address] Social History Tobacco Use Types Packs/Day Years Used Date Smoking Tobacco: Never Alcohol Use Standard Drinks/Week Comments Yes 0 (1 standard drink = 0.6 oz pur e alcohol) Comments Unknown Sex and Gender Information Value Date Recorded Sex Assigned at Not on file Legal Sex Female 1:15 AM WEIR FISHER Gender Identity Female 10/30/2020 9:29 PM WEIR FISHER Sexual Orientation Straight 10/30/2020 9: 29 PM WEIR FISHER documented as of this encounter Plan of Treatment Not on file documented as of this encounter Procedures Procedure Name Priority Date/Time Associated Diagnosis Comments PROCEDURE - RESULT 10/17/2018 12 :00 AM WEIR FISHER documented in this encounter Results * PROCEDURE - RESULT (10/17/2018 12:00 AM WEIR FISHER) Narrative 10/17/2018 12:00 AM WEIR FISHER Ordered by an unspecified provider. us Historical Provider Final Res ult documented in this encounter Visit Diagnoses Not on filedocumented in this encounter Care Teams Bow Maker Production Relationship Specialty Start Date End Date Delia Harry MD [address] [facility] [address] [place] [address] PCP - General 01/18/19 12/06/20 Ysabel Winters MD [address] [address] PCP - General 12/07/20 12/07/22 Jacey Handley MD [address] [facility] [address] [place] [address] PCP - General Internal Medicine 12/08/22 Elijah Palumbo MD [address] [place] [address] Referring Physician Gastroenterology 07/11/24 Truman Dillon MD [phone] [place] [address] Surgeon Colon and Rectal Surgery 07/23/24 Davin Madsen MD [address] [facility] [address] [place] [address] Drilling Field Operator Gastroenterology 07/23/24 documented as of this encounter
--- OUTSIDE RECORDS SUMMARY | 2025-07-28 12:31 | XMS_ITS | Clinical Summary ---
Author Organization [facility] Address [address] [facility] [place] [address] Care Team Providers Care Senior Solutions Consultant Name Role Phone Marco Granados MD Primary Care Provider [phone] Source Comments [facility],non-owned Affiliates and Associated Physician Practices is amultiple site organization consisting of ambulatory clinics and hospital sitesin [place], [place], [place] and [place]. This disclosure is being madepursuant to the Care Everywhere program and may not contain all information available regarding this patient. Last updated 18.[facility] Active Problems Problem Noted Date Diagnosed Date [...] on file Legal Sex Female 6:21 PM STUDENT EDUCATION SPECIALIST Gender Identity Not on file Sexual Orientation Not on file Plan of Treatment Health Maintenance Due Date Last Done Comments BONE DENSITY TESTING 1940 DTAP/TDAP/TD VACCINES (1 - Tdap) 02/20/1959 PNEUMOCOCCAL VACCINE 50+ (1 of 1 - PCV) 02/20/1990 ZOSTER VACCINE (1 of 2) 02/20/1990 Respiratory Syncytial Virus (RSV) Vaccine Pt: or over 60 yrs (1 - 1-dose 75+ series) 02/20/2015 DEPRESSION SCREENING 11/20/2024 MEDICARE AWV CALENDAR YEAR 2024 COVID-19 VACCINE (2023-2 5 season) 2025 INFLUENZA VACCINE (#1) 2025 HEPATITIS B VACCINE [...] to complete this topic Insurance [facility] MEDICARE ADV SELF PAY NO INSURANCE Member Subscriber Plan / Payer (Ef fective for All Dates) Name:Emma Guerra Member ID:Not on file Relation to Subscriber:Not on file Name:EMMA GUERRA Subscriber ID:Not on file Address: [address] [place] [address] Payer ID:Not on file Group ID:Not on file Type:Self Pay Address: [place], [place] UHC MANAGED MEDICARE ADV SELF PAY NO INSURANCE Member Subscriber Plan / Payer (Ef fective for All Dates) Name:Emma Guerra Member ID:Not on file Relation to Subscriber:Not on file Name:EMMA GUERRA Subscriber ID:Not on file Address: [address] [place] [address] Payer ID:Not on file Group ID:Not on file Type:Self Pay Address: [place], [place] UHC MANAGED MEDICARE ADV Member Subscriber Plan / Payer (Ef fective 2024-Present) Name:Emma Guerra Relation to Subscriber:Self Name:Emma Guerra Payer ID:[id number] (NAIC) Type:Medicare-Managed Care Address: [place] [id number] SELF PAY NO INSURANCE Member Subscriber Plan / Payer (Ef fective for All Dates) Name:Emma Guerra Member ID:Not on file Relation to Subscriber:Not on file Name:EMMA GUERRA Subscriber ID:Not on file Address: [address] [place] [address] [place] [address] Payer ID:Not on file Group ID:Not on file Type:Self Pay Address: [place], [place] UHC MANAGED MEDICARE ADV Care Teams Senior Solutions Consultant Relationship Specialty Start Date End Date Marco Granados MD [address] [facility] [place] [phone] PCP - General Internal Medicine 11/23/17
--- OUTSIDE RECORDS SUMMARY | 2025-07-28 12:31 | XMS_ITS | Clinical Summary ---
Author Organization [facility] Address [address] [place] [address] Care Team Providers Care Major Gifts Officer Name Role Phone Jacey Handley MD Primary Care Provider [phone] Elijah Palumbo MD Unavailable [phone] Trumna Dillon MD Unavailable [phone] Davin Madsen MD Unavailable [phone] Allergies Active Allergy Reactions Criticality Noted Date [...] (KENALOG) 0.1 % cream 1 Active zoledronic wfll-zbirhygY-q ater (RECLAST) 5 mg/100 mL piggyback 2 [...] (07/16/2019): Added automatically from request for surgery [id number] 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 Stiffness of shoulder [...] on file Legal Sex Female 1:15 AM ROTOR COIL TAPER Gender Identity Female 10/30/2020 9:29 PM ROTOR COIL TAPER Sexual Orientation Straight 10/30/2020 9: 29 PM ROTOR COIL TAPER Obstetrics History Last Filed Vital Signs Vital [...] history exists Medical Devices Implanted Type Area Stonecutter Hand Device Identifier Shelf Expiration Date Model / Serial / Lot Shoulder Replacement Right: Shoulder Procedures Procedure Name Priority Date/Time Associated Diagnosis Comments DEXA TBS AXIAL SKELETON BONE DENSITY 1 OR MORE SITES Schedule Routine, Read Routine (OP Routine) 01/01/2024 12:40 PM ROTOR COIL TAPER Osteoporosis, unspecified osteoporosis type, unspecified pathological fracture presence from Last 3 Months or Most Recently Relevant to Health Maintenance Results * Dexa TBS Axial Skeleton Bone Density 1 or more sites (01/01/2024 12:40 PM ROTOR COIL TAPER) Anatomical Region Laterality Modality Wrist, Body N/A Radiographic Daksha ging Narrative 01/03/2024 11:35 AM ROTOR COIL TAPER Patient Name: Rey Blancas Date of : 1940 Date of scan: 01/01/2024 Bone mineral density was performed on a [facility] Discovery Densitometer. Based on machine cross-calibration and [...] by the International Society of Clinical Densitometry. [id number] Ayo Julien MD IMG DXA PROCEDURES Final Result from Last 3 Months or Most Recently Relevant to Health Maintenance Insurance [facility] MEDICARE AD[facility]ANT[facility] Address: [facility] [id number] [place] [phone] [facility] MEDICARE ADVANTAGE [facility] Address: [address] [address] [place] [address] [place] [address] [facility] MEDICARE ADVANTAGE [facility] Address: [address] [address] [place] [address] Advance Directives For more information, please contact: [phone] Documents on File Type Date Recorded Patient Core Cleaner Expl anation ADVANCE DIRECTIVE 10/02/2018 12:00 AM POW ER OF ENERGY CONSULTANT FINANCIAL/MEDICAL * Full Code (Latest Code Status on File) Date Activated Date Inactivated Comments 07/19/2019 10:55 AM 07/19/2019 6:45 PM Care Teams Major Gifts Officer Relationship Specialty Start Date End Date Jacey Handley MD PCP - General Internal Medicine 12/08/22 Elijah Palumbo MD [address] [place] [address] Referring Physician Gastroenterology 07/11/24 Truman Dillon MD [phone] [address] Surgeon Colon and Rectal Surgery 07/23/24 Davin Madsen MD [address] [facility] [address] [place] [address] Outside Repairer Special Gastroenterology 07/23/24
--- OUTSIDE RECORDS SUMMARY | 2025-07-28 12:31 | XMS_ITS | Clinical Summary ---
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) 11/01/2019 Osteoporosis 11/01/2019 Infiltrating ductal carcinoma of breast (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 ) 05/12/2025 Travel from Last 3 Months Family History Medical History Relation Comments Breast Cancer Sister Relation Status Comments Sister Social History Tobacco Use Types Packs/Day Years Used Date Smoking Tobacco: Never Smokeless Tobacco: Never Tobacco Cessation:Counseling Given: No Comments No Sex and Gender Information Value Date Recorded Sex Assigned at Female 01/06/2025 3:13 PM CONING MACHINE OPERATOR Legal Sex Female 7:41 PM CDT Gender [...] st Contact Info) Description 11/17/2025 9:00 AM CONING MACHINE OPERATOR Office Visit [facility] Multispecialty Care - [address], [address] [place] [phone] Gina Lazcano MD [address] [place] [phone] Health Maintenance Due Date Last Done Comments Annual Medicare Wellness Visit 02/20/2005 PHQ-2 (Physician [place]) 11/20/2024 COVID-19 Vaccine ( season) 2025 09/01/2021, 01/15/2021, 12/25/2020 DTaP, Tdap and Td [...] patient's age to complete this topic Insurance [facility] Care Teams Cellophane Tester Relationship Specialty Start Date End Date Kian Pitt DO [address] [place] [address] PCP - General FAMILY PRACTICE 05/12/25 Gen Kirk MD [place] Manager Code INTERVENTIONAL CARDIOLOGY 08/28/19 Miguel Angel Tamayo MD [address] [place] [address] Referring Physician GENERAL SURGERY 08/20/19
--- OUTSIDE RECORDS SUMMARY | 2025-07-28 12:31 | XMS_ITS | Clinical Summary ---
Author Organization [facility] Address [address], [facility] [address] [place] [address] Phone Care Team Providers Care Compensation Programs Manager Name Role Phone Everett Arriaga MD Unavailable [phone] Jacey Handley MD Primary Care Provider [phone] Allergies Active Allergy Reactions Criticality Noted Date [...] Lnp-s, Pf, 3 0 Mcg/0.3 Ml Dose ([employer]) 01/15/2021,12/25/2020 Hepatitis A Vaccine 06/25/2019,03/19/2018 Hepatitis A, [...] AM CDT Lab [facility] [address] [address] Lab, Cc [facility] 03/06/2026 11:00 AM CDT Ancillary Procedure [facility] [address] [address] Elizabeth De Jesus, OFFICE ADMINISTRATION INSTRUCTOR, REGISTERED NURSE CARDIOVASCULAR ICU [address] [place] [address], [address] [place], [place] [id number] 03/06/2026 11:30 AM CDT Office Visit [facility] [address] [address] Everett Arriaga MD [address] [place] [phone] Health Maintenance Due Date Last Done Comments Hepatitis C Virus (HCV) Screening 1940 Discussion re Stopping Mammograms 02/20/2015 Influenza Immunization (#1) 07/21/202507/21, 09/03/2022, 11/18/2021, Additional history exists SARS-COV-2 Immunization ( season) 2025 09/01/2022, 05/09/2022, 09/01/2021, Additional history exists Td [...] Procedure Name Priority Date/Time Associated Diagnosis Comments [facility] BONE DENSITOMETRY AXIAL SKELETON Routine 11/23/2023 9:58 AM LANDFILL GAS COLLECTION OPERATOR Encounter for monitoring aromatase inhibitor therapy from Last 3 Months or Most Recently Relevant to Health Maintenance Results * [facility] BONE DENSITOMETRY AXIAL SKELETON (11/23/2023 9:58 AM LANDFILL GAS COLLECTION OPERATOR) Anatomical Region Laterality Modality BODY N/A Other Narrative 11/23/2023 11:24 AM LANDFILL GAS COLLECTION OPERATOR EXAMINATION: [facility] BONE DENSITOMETRY AXIAL SKELETON INDICATIONS: [...] Signature: 11/23/2023 11:24:30 us Emma Martínez APRN, REGISTERED NURSE CARDIOVASCULAR ICU IMG DEXA ORDERABL ES Final Result from Last 3 Months or Most Recently Relevant to Health Maintenance Insurance MEDICARE C [facility] Care Teams Compensation Programs Manager Relationship Specialty Start Date End Date Jacey Handley MD [address] [facility] [place] [address] PCP - General Internal Medicine 08/18/22 Everett Arriaga MD [address] [place] [phone] Consulting Physician Oncology 10/20/20
--- OUTSIDE RECORDS SUMMARY | 2025-07-28 12:31 | XMS_ITS | Patient Health Record ---
Author Organization [facility] Address [address] [place], [place] [id number] Care Team Providers Care Biologics Specialist Name Role Phone DESIREORESTES CROUCH Unavailable [phone] Larissa Ryan Unavailable Unavailable Reason For Referral No Information Medications Medication SIG (Take, Route, Frequency, Duration) Notes Start Date End Date Status ciclopirox 80 MG/ML Topical Solution [Penlac Nail Lacquer] ciclopirox 80 MG/ML Topical Solution [[place] Nail Lacquer]Original Medicationciclopirox 80 MG/ML Topical Solution [[place] Nail Lacquer] *Reorder from [employer] for eRx and Interaction Alerts* 11/05/2013 Active Plan Of Treatment No Information Insurance Providers Payer Name Payer Address Payer Phone Subscriber Number Group Number Insured Name Patient Relationship to Insured Coverage Start Date Coverage End Date Medicare Part B [place] [address] [place] [phone] [id number] EMMA GUERRA Self - patient is the insured [facility] [employer] [facility] [address] [place] [address] [id number] EMMA GUERRA Self - patient is the insured
--- OUTSIDE RECORDS SUMMARY | 2025-07-28 12:31 | XMS_ITS | Encounter Summary ---
Author Organization [facility] Address [address] [place] [address] Phone Care Team Providers Care Cook At School Name Role Phone Delia Harry MD Primary Care Provider Everett Arriaga MD Unavailable [phone] Jacey Handley MD Primary Care Provider [phone] Reason for Visit * Reason Comments Medication Refill Encounter Details Date Type Department Care Team (Late st Contact Info) Description 10/21/2021 Refill [facility] [address] [address] Everett Arriaga MD [address] [place] [address] Medication Refill Social History Tobacco Use [...] Everett Arriaga MD - 10/22/2021 10:42 AM SECURITIES ANALYST Ok to fill RITIES ANALYST * Telephone Encounter - Ruperto Olivarez RN - 10/22/2021 10:27 AM CST Refill request from pharmacy. Refill if appropriate. RITIES ANALYST documented in this encounter Plan of Treatment Upcoming Encounters Date Type Department Care Team (Late st Contact Info) Description 03/06/2026 10:45 AM CDT Lab [facility] [address] [phone] Lab, [facility] 03/06/2026 11:00 AM CDT Ancillary Procedure [facility] [address] [phone] Elizabeth De Jesus APRN, BUNKER WORKER [address] [place] [address] [address] [place] [address] 03/06/2026 11:30 AM CDT Office Visit [facility] [address] [phone] Everett Arriaga MD [address] [place] [phone] documented as of this encounter Visit Diagnoses Diagnosis 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, estrogen receptor positive (HCC) Other osteoporosis, unspecified pathological fracture presence documented in this encounter Additional Health Concerns Assessment Noted Time PHQ-9 Depression Total Score: 1 01/13/20 21 3:49 PM SECURITIES ANALYST documented as of this encounter Care Teams Cook At School Relationship Specialty Start Date End Date Delia Harry MD [address] [address] PCP - General Family Medicine 08/13/19 08/16/22 Jacey Handley MD [address] [facility] [place] [address] PCP - General Internal Medicine 08/18/22 Everett Arriaga MD [address] [place] [phone] Consulting Physician Oncology 10/20/20 documented as of this encounter
--- OUTSIDE RECORDS SUMMARY | 2025-07-28 12:31 | XMS_ITS | Encounter Summary ---
Author Organization [facility] Address [address] [place] [address] Phone Care Team Providers Care Stamp Mounter Name Role Phone Delia Harry MD Primary Care Provider [phone] Everett Arriaga MD Unavailable Jacey Handley MD Primary Care Provider [phone] Reason for Visit * Reason Comments Medication Refill Encounter Details Date Type Department Care Team (Late st Contact Info) Description 07/17/2022 Refill [facility] [place] [address] [place] [address] Everett Arriaga MD [address] [place] [address] Medication Refill Social History Tobacco Use [...] * Telephone Encounter - Emma Thacker, KELSEY, CAFETERIA COOK - 07/18/2022 10:20 AM CDT Okay to refill. * Telephone Encounter - Christiana Sheppard RN - 07/18/2022 8:03 AM CDT Refill request from pharmacy Last filled 10/22/2021 #90 R-2 Please fill if appropriate documented in this encounter Plan of Treatment Upcoming Encounters Date Type Department Care Team (Late st Contact Info) Description 03/06/2026 10:45 AM CDT Lab [facility] [address] [phone] Lab, [facility] 03/06/2026 11:00 AM CDT Ancillary Procedure [facility] [address] [phone] Elizabeth De Jesus APRN, CAFETERIA COOK [address] [place] [address] [address] [place] [address] 03/06/2026 11:30 AM CDT Office Visit [facility] [address] [phone] Everett Arriaga MD [address] [place] [phone] documented as of this encounter Visit Diagnoses Diagnosis 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, estrogen receptor positive (HCC) Other osteoporosis, unspecified pathological fracture presence documented in this encounter Additional Health Concerns Assessment Noted Time PHQ-9 Depression Total Score: 1 01/13/20 21 3:49 PM MEDICAL CENTER REPRESENTATIVE documented as of this encounter Care Teams Stamp Mounter Relationship Specialty Start Date End Date Delia Harry MD [address] [address] PCP - General Family Medicine 08/13/19 08/16/22 Jacey Handley MD [address] [place] [address] PCP - General Internal Medicine 08/18/22 Everett Arriaga MD [address] [place] [address] Consulting Physician Oncology 10/20/20 documented as of this encounter
== END 2025-07-28 12:27 | disposition home or self-care (01) ==
PROVIDERS: PCP Family Medicine; Visit Provider Family Medicine
DX: M25.572 Pain in left ankle and joints of left foot (principal)
CPT/HCPCS: 73610

== ENCOUNTER 2025-08-19 10:10 | Outpatient (CLI) | payer MEDICARE, SELFPAY ==
--- OUTSIDE RECORDS SUMMARY | 2025-08-19 10:56 | XMS_ITS | Encounter Summary ---
Author Organization [facility] Address [address] [place] [address] Phone Care Team Providers Care Director Of Exhibit Development Name Role Phone Delia Harry MD Primary Care Provider [phone] Everett rAriaga MD Unavailable [phone] Jacey Handley MD Primary Care Provider [phone] Reason for Visit * Reason Comments Medication Refill Encounter Details Date Type Department Care Team (Late st Contact Info) Description 07/17/2022 Refill [facility] [place] [address] [place] [address] Everett Arriaga MD [address] [place] [phone] Medication Refill Social History Tobacco Use [...] * Telephone Encounter - Emma Thacker, KELSEY, FLUME TENDER - 07/18/2022 10:20 AM CDT Okay to refill. * Telephone Encounter - Christiana Sheppard RN - 07/18/2022 8:03 AM CDT Refill request from pharmacy Last filled 10/22/2021 #90 R-2 Please fill if appropriate documented in this encounter Plan of Treatment Upcoming Encounters Date Type Department Care Team (Late st Contact Info) Description 03/06/2026 10:45 AM CDT Lab [facility] [address] [phone] Lab, [facility] 03/06/2026 11:00 AM CDT Ancillary Procedure [facility] [address] [phone] Elizabeth De Jesus APRN, FLUME TENDER [address] [place] [address] [address] [place] [address] 03/06/2026 11:30 AM CDT Office Visit [facility] [address] [phone] Everett Arriaga MD [address] [place] [phone] documented as of this encounter Visit Diagnoses Diagnosis 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, estrogen receptor positive Other osteoporosis, unspecified pathological fracture presence documented in this encounter Additional Health Concerns Assessment Noted Time PHQ-9 Depression Total Score: 1 01/13/20 21 3:49 PM WATER SYSTEMS ENGINEER documented as of this encounter Care Teams Director Of Exhibit Development Relationship Specialty Start Date End Date Delia Harry MD [address] [address] PCP - General Family Medicine 08/13/19 08/16/22 Jacey Handley MD [address] [place] [address] PCP - General Internal Medicine 08/18/22 Everett Arriaga MD [address] [place] [phone] Consulting Physician Oncology 10/20/20 documented as of this encounter
--- OUTSIDE RECORDS SUMMARY | 2025-08-19 10:56 | XMS_ITS | Encounter Summary ---
Author Organization [facility] Address [address] [place] [address] Phone Care Team Providers Care Water Team Leader Name Role Phone Delia Harry MD Primary Care Provider Ysabel Winters MD Primary Care Provider [phone] Jacey Handley MD Primary Care Provider [phone] Elijah Palumbo MD Unavailable [phone] Truman Dillon MD Unavailable [phone] Davin Madsen MD Unavailable [phone] Encounter Details Date Type Department Care Team [...] on file Legal Sex Female 1:15 AM SANITARY ENGINEER Gender Identity Female 10/30/2020 9:29 PM SANITARY ENGINEER Sexual Orientation Straight 10/30/2020 9: 29 PM SANITARY ENGINEER documented as of this encounter Plan of Treatment Not on file documented as of this encounter Procedures Procedure Name Priority Date/Time Associated Diagnosis Comments SCAN - RADIOLOGY/IMAGING 10/28/2020 documented in this encounter Results * SCAN - RADIOLOGY/IMAGING (10/28/2020) Anatomical Region Laterality Modality Other us Provider Scanning Final Result documented in this encounter Visit Diagnoses Not on filedocumented in this encounter Care Teams Water Team Leader Relationship Specialty Start Date End Date Delia Harry MD [address] [facility] [address] [place] [address] PCP - General 01/18/19 12/06/20 Ysabel Winters MD [address] [facility] [address] [place] [address] PCP - General 12/07/20 12/07/22 Jacey Handley MD [address] [address] PCP - General Internal Medicine 12/08/22 Elijah Palumbo MD [address] [place] [address] Referring Physician Gastroenterology 07/11/24 Truman Dillon MD [address] [phone] [place] [address] Surgeon Colon and Rectal Surgery 07/23/24 Davin Madsen MD [address] [facility] [address] [place] [address] Insulation Estimator Gastroenterology 07/23/24 documented as of this encounter
--- OUTSIDE RECORDS SUMMARY | 2025-08-19 10:56 | XMS_ITS | Encounter Summary ---
Author Organization [facility] Address [address] [place] [address] Phone Care Team Providers Care Supervisor Hairspring Fabrication Name Role Phone Delia Harry MD Primary Care Provider [phone] Ysabel Winters MD Primary Care Provider [phone] Jacey Handley MD Primary Care Provider [phone] Elijah Palumbo MD Unavailable [phone] Truman Dillon MD Unavailable [phone] Davin Madsen MD Unavailable [phone] Reason for Visit * Reason Onset Date Comments Zoom invite 09/22/2020 1:44pm YR spoke with Ms. Blancas and set her up for testing 10/01/2020 10:00am Encounter Details Date Type Department Care Team (Late st Contact Info) Description 09/22/2020 Documentation [facility] [address] [place] [address] [address] Floor [address] [place] [phone] Ewelina Fung CNA Zoom invite (1:44pm YR [...] on file Legal Sex Female 1:15 AM RIB CUTTER Gender Identity Female 10/30/2020 9:29 PM RIB CUTTER Sexual Orientation Straight 10/30/2020 9: 29 PM RIB CUTTER documented as of this encounter Plan of Treatment Not on file documented as of this encounter Visit Diagnoses Not on filedocumented in this encounter Care Teams Supervisor Hairspring Fabrication Relationship Specialty Start Date End Date Delia Harry MD [address] [address] PCP - General 01/18/19 12/06/20 Ysabel Winters MD [address] [address] PCP - General 12/07/20 12/07/22 Jacey Handley MD [address] [address] PCP - General Internal Medicine 12/08/22 Elijah Palumbo MD [address] [place] [address] Referring Physician Gastroenterology 07/11/24 Truman Dillon MD [address] [phone] [place] [address] Surgeon Colon and Rectal Surgery 07/23/24 Davin Madsen MD [address] [place] [address] Tunnel Elastic Operator Zigzag Gastroenterology 07/23/24 documented as of this encounter
--- OUTSIDE RECORDS SUMMARY | 2025-08-19 10:56 | XMS_ITS | Encounter Summary ---
Author Organization [facility] Address [address] [place] [address] Phone Care Team Providers Care End Trimmer Name Role Phone Delia Harry MD Primary Care Provider [phone] Ysabel Winters MD Primary Care Provider [phone] Jacey Handley MD Primary Care Provider [phone] Elijah Palumbo MD Unavailable [phone] Truman Dillon MD Unavailable [phone] Davin Madsen MD Unavailable [phone] Encounter Details Date Type Department Care Team (Late st Contact Info) Description 10/24/2019 Orders Only [facility] Gastroenterology [address] [facility] Office Building [address] [place] [phone] Lolis Mcallister MD [address] [place] [address] [address] [place] [address] Social History Tobacco Use Types Packs/Day Years Used Date Smoking Tobacco: Never Smokeless Tobacco: Never Alcohol Use Standard Drinks/Week Comments Yes 2 (1 standard drink = 0.6 oz pur e alcohol) Comments No Sex and Gender Information Value Date Recorded Sex Assigned at Not on file Legal Sex Female 1:15 AM INTERMEDIATE ACCOUNTANT Gender Identity Female 10/30/2020 9:29 PM INTERMEDIATE ACCOUNTANT Sexual Orientation Straight 10/30/2020 9: 29 PM INTERMEDIATE ACCOUNTANT documented as of this encounter Plan of Treatment Not on file documented as of this encounter Visit Diagnoses Not on filedocumented in this encounter Care Teams End Trimmer Relationship Specialty Start Date End Date Delia Harry MD [address] [facility] [address] [place] [address] PCP - General 01/18/19 12/06/20 Ysabel Winters MD [address] [facility] [address] [place] [address] PCP - General 12/07/20 12/07/22 Jacey Handley MD [address] [facility] [address] [place] [address] PCP - General Internal Medicine 12/08/22 Elijah Palumbo MD [address] [place] [address] Referring Physician Gastroenterology 07/11/24 Truman Dillon MD [address] [phone] [place] [address] Surgeon Colon and Rectal Surgery 07/23/24 Davin Madsen MD [address] [facility] [address] [place] [address] Manufacturing Test Engineer Gastroenterology 07/23/24 documented as of this encounter
--- OUTSIDE RECORDS SUMMARY | 2025-08-19 10:56 | XMS_ITS | Encounter Summary ---
Author Organization [facility] Facility Care Team Providers Care Sack Sewer Machine Name Role Phone Delia Harry MD Primary Care Provider [phone] Ysabel Winters MD Primary Care Provider [phone] Jacey Handley MD Primary Care Provider [phone] Elijah Palumbo MD Unavailable Truman Dillon MD Unavailable [phone] Davin Madsen MD Unavailable Encounter Details Date Type Department Care Team (Latest Contact Info) Description 09/24/2018 Orders Only [facility] CLINCONV Provider, MD Robert [address] [place] [address] Social History Tobacco Use Types Packs/Day Years Used Date Smoking Tobacco: Never Alcohol Use Standard Drinks/Week Comments Yes 0 (1 standard drink = 0.6 oz pur e alcohol) Comments Unknown Sex and Gender Information Value Date Recorded Sex Assigned at Not on file Legal Sex Female 1:15 AM MID LEVEL GAME DESIGNER Gender Identity Female 10/30/2020 9:29 PM MID LEVEL GAME DESIGNER Sexual Orientation Straight 10/30/2020 9: 29 PM MID LEVEL GAME DESIGNER documented as of this encounter Plan of Treatment Not on file documented as of this encounter Procedures Procedure Name Priority Date/Time Associated Diagnosis Comments PROCEDURE - RESULT 09/24/2018 12 :00 AM MID LEVEL GAME DESIGNER documented in this encounter Results * PROCEDURE - RESULT (09/24/2018 12:00 AM MID LEVEL GAME DESIGNER) Narrative 09/24/2018 12:00 AM MID LEVEL GAME DESIGNER Ordered by an unspecified provider. us Historical Provider Final Res ult documented in this encounter Visit Diagnoses Not on filedocumented in this encounter Care Teams Sack Sewer Machine Relationship Specialty Start Date End Date Delia Harry MD [address] [facility] [address] [place] [address] PCP - General 01/18/19 12/06/20 Ysabel Winters MD [address] [address] PCP - General 12/07/20 12/07/22 Jacey Handley MD [address] [facility] [address] [place] [address] PCP - General Internal Medicine 12/08/22 Elijah Palumbo MD [address] [place] [address] Referring Physician Gastroenterology 07/11/24 Truman Dillon MD [address] [phone] [place] [address] Surgeon Colon and Rectal Surgery 07/23/24 Davin Madsen MD [address] [facility] [address] [place] [address] Patient Financial Representative Gastroenterology 07/23/24 documented as of this encounter
--- OUTSIDE RECORDS SUMMARY | 2025-08-19 10:56 | XMS_ITS | Encounter Summary ---
Author Organization [facility] Address [address] [place] [address] Phone Care Team Providers Care Receptionist Clerk Name Role Phone Delia Harry MD Primary Care Provider [phone] Everett Arriaga MD Unavailable [phone] Jacey Handley MD Primary Care Provider [phone] Reason for Visit * Reason Comments Medication Refill Encounter Details Date Type Department Care Team (Late st Contact Info) Description 10/21/2021 Refill [facility] [address] [address] Everett Arriaga MD [address] [place] [address] Medication Refill Social History Tobacco Use [...] Everett Arriaga MD - 10/22/2021 10:42 AM HEALTH SCIENCE INSTRUCTOR Ok to fill TH SCIENCE INSTRUCTOR * Telephone Encounter - Ruperto Olivarez RN - 10/22/2021 10:27 AM CST Refill request from pharmacy. Refill if appropriate. TH SCIENCE INSTRUCTOR documented in this encounter Plan of Treatment Upcoming Encounters Date Type Department Care Team (Late st Contact Info) Description 03/06/2026 10:45 AM CDT Lab [facility] [address] [phone] Lab, [facility] 03/06/2026 11:00 AM CDT Ancillary Procedure [facility] [address] [phone] Elizabeth De Jesus APRN, GENERAL SURGERY PHYSICIAN ASSISTANT [address] [place] [address] [address] [place] [address] 03/06/2026 11:30 AM CDT Office Visit [facility] [address] [phone] Everett Arriaga MD [address] [place] [phone] documented as of this encounter Visit Diagnoses Diagnosis 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, estrogen receptor positive Other osteoporosis, unspecified pathological fracture presence documented in this encounter Additional Health Concerns Assessment Noted Time PHQ-9 Depression Total Score: 1 01/13/20 21 3:49 PM HEALTH SCIENCE INSTRUCTOR documented as of this encounter Care Teams Receptionist Clerk Relationship Specialty Start Date End Date Delia Harry MD [address] [address] PCP - General Family Medicine 08/13/19 08/16/22 Jacey Handley MD [address] [facility] [place] [address] PCP - General Internal Medicine 08/18/22 Everett Arriaga MD [address] [place] [address] Consulting Physician Oncology 10/20/20 documented as of this encounter
--- OUTSIDE RECORDS SUMMARY | 2025-08-19 10:56 | XMS_ITS | Clinical Summary ---
Author Organization [facility] Address [address] [place] [address] Phone Care Team Providers Care Veterans Rehabilitation Counselor Name Role Phone Jacey Handley MD Primary Care Provider [phone] Allergies No known active allergies Medications acetaminophen [...] Comments Blood Pressure 128/70 11/09/2022 8:47 AM WELDER TECH Pulse 72 11/09/2022 8:47 AM WELDER TECH Temperature 35.3 C (95.5 F) 11/09/2022 8:47 AM WELDER TECH Respiratory Rate - - Oxygen Saturation - - Inhaled Oxygen Concentration - - Weight 50.3 kg (111 lb) 11/09/2022 8:47 AM WELDER TECH Height 165.1 cm (5' 5) 11/09/2022 8:47 AM WELDER TECH Body Mass Index 18.47 11/09/2022 8:47 AM WELDER TECH Plan of Treatment Health Maintenance Due Date Last Done Comments COVID-19 Vaccine ( season) 2025 09/01/2021, 01/15/2021, 12/25/2020 Influenza Vaccine (#1) 2025 09/03/2022 Pneumococcal PPSV23/PCV13 65 + Years / Low and Medium Risk Completed 09/03/2019, 11/29/2016 Insurance [employer] MEDICARE Care Teams Veterans Rehabilitation Counselor Relationship Specialty Start Date End Date Jacey Handley MD [address] [place] [place] [address] PCP - General Internal Medicine 10/10/22
--- OUTSIDE RECORDS SUMMARY | 2025-08-19 10:56 | XMS_ITS | Encounter Summary ---
Author Organization [facility] Facility Care Team Providers Care Instructor Programmable Controllers Name Role Phone Delia Harry MD Primary Care Provider [phone] Ysabel Winters MD Primary Care Provider [phone] Jacey Handley MD Primary Care Provider [phone] Elijah Palumbo MD Unavailable [phone] Truman Dillon MD Unavailable [phone] Davin Madsen MD Unavailable Encounter Details Date Type Department Care Team (Latest Contact Info) Description 10/17/2018 Orders Only [facility] CLINCONV Provider, MD Robert [address] [place], [place] [address] Social History Tobacco Use Types Packs/Day Years Used Date Smoking Tobacco: Never Alcohol Use Standard Drinks/Week Comments Yes 0 (1 standard drink = 0.6 oz pur e alcohol) Comments Unknown Sex and Gender Information Value Date Recorded Sex Assigned at Not on file Legal Sex Female 1:15 AM CLINCHING MACHINE OPERATOR Gender Identity Female 10/30/2020 9:29 PM CLINCHING MACHINE OPERATOR Sexual Orientation Straight 10/30/2020 9: 29 PM CLINCHING MACHINE OPERATOR documented as of this encounter Plan of Treatment Not on file documented as of this encounter Procedures Procedure Name Priority Date/Time Associated Diagnosis Comments PROCEDURE - RESULT 10/17/2018 12 :00 AM CLINCHING MACHINE OPERATOR documented in this encounter Results * PROCEDURE - RESULT (10/17/2018 12:00 AM CLINCHING MACHINE OPERATOR) Narrative 10/17/2018 12:00 AM CLINCHING MACHINE OPERATOR Ordered by an unspecified provider. us Historical Provider Final Res ult documented in this encounter Visit Diagnoses Not on filedocumented in this encounter Care Teams Instructor Programmable Controllers Relationship Specialty Start Date End Date Delia Harry MD [address] [facility] [address] [place] [address] PCP - General 01/18/19 12/06/20 Ysabel Winters MD [address] [address] PCP - General 12/07/20 12/07/22 Jacey Handley MD [address] [facility] [address] [place] [address] PCP - General Internal Medicine 12/08/22 Elijah Palumbo MD [address] [place] [address] Referring Physician Gastroenterology 07/11/24 Truman Dillon MD [phone] [place] [address] Surgeon Colon and Rectal Surgery 07/23/24 Davin Madsen MD [address] [facility] [address] [place] [address] Mercury Cell Cleaner Gastroenterology 07/23/24 documented as of this encounter
--- OUTSIDE RECORDS SUMMARY | 2025-08-19 10:56 | XMS_ITS | Clinical Summary ---
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 Stiffness of shoulder [...] on file Legal Sex Female 1:15 AM CANE FLUME WATCHER Gender Identity Female 10/30/2020 9:29 PM CANE FLUME WATCHER Sexual Orientation Straight 10/30/2020 9: 29 PM CANE FLUME WATCHER Obstetrics History Last Filed Vital Signs Vital [...] Visit 65+ 02/20/2005 Covid-19 Vaccine ( - 2024-2 6 season) 2025 09/01/2021, 01/15/2021, 12/25/2020 Influenza Vaccine [...] history exists Medical Devices Implanted Type Area Mobile Practice Lead Device Identifier Shelf Expiration Date Model / Serial / Lot Shoulder Replacement Right: Shoulder Procedures Procedure Name Priority Date/Time Associated Diagnosis Comments DEXA TBS AXIAL SKELETON BONE DENSITY 1 OR MORE SITES Schedule Routine, Read Routine (OP Routine) 01/01/2024 12:40 PM CANE FLUME WATCHER Osteoporosis, unspecified osteoporosis type, unspecified pathological fracture presence from Last 3 Months or Most Recently Relevant to Health Maintenance Results * Dexa TBS Axial Skeleton Bone Density 1 or more sites (01/01/2024 12:40 PM CANE FLUME WATCHER) Anatomical Region Laterality Modality Wrist, Body N/A Radiographic Daksha ging Narrative 01/03/2024 11:35 AM CANE FLUME WATCHER Patient Name: Rey Blancas Date of : 1940 Date of scan: 01/01/2024 Bone mineral density was performed on a [employer] Discovery Densitometer. Based on machine cross-calibration and [...] by the International Society of Clinical Densitometry. [id number] Ayo Julien MD IMG DXA PROCEDURES Final Result from Last 3 Months or Most Recently Relevant to Health Maintenance Insurance [facility] MEDICARE ADVANTAGE MEDICAL CENTER MEDICARE Address: [facility] [address] [place] [phone] [facility] MEDICARE ADVANTAGE MEDICAL CENTER MEDICARE Address: [address] [address] [place] [address] [place] [address] [facility] MEDICARE ADVANTAGE MEDICAL CENTER MEDICARE Address: [address] [address] [place] [address] Advance Directives For more information, please contact: [phone] Documents on File Type Date Recorded Patient Athletic Scout Expl anation ADVANCE DIRECTIVE 10/02/2018 12:00 AM POW ER OF ENGLISH COMPOSITION TEACHER FINANCIAL/MEDICAL * Full Code (Latest Code Status on File) Date Activated Date Inactivated Comments 07/19/2019 10:55 AM 07/19/2019 6:45 PM Care Teams Boat And Plant Utility Supervisor Relationship Specialty Start Date End Date Jacey Handley MD PCP - General Internal Medicine 12/08/22 Elijah Palumbo MD [address] [place] [address] Referring Physician Gastroenterology 07/11/24 Truman Dillon MD [phone] [place] [address] Surgeon Colon and Rectal Surgery 07/23/24 Davin Madsen MD [address] [facility] [address] [place] [address] Rn Clinical Resource Gastroenterology 07/23/24
--- OUTSIDE RECORDS SUMMARY | 2025-08-19 10:56 | XMS_ITS | Clinical Summary ---
Author Organization [facility] Address [address] [facility] [place] [address] Care Team Providers Care Television Reporter Name Role Phone Marco Granados MD Primary Care Provider [phone] Source Comments [facility],non-owned Affiliates and Associated Physician Practices is amultiple site organization consisting of ambulatory clinics and hospital sitesin [place], [place], [place] and [place]. This disclosure is being madepursuant to the Care Everywhere program and may not contain all information available regarding this patient. Last updated 18.[facility] Active Problems Problem Noted Date Diagnosed Date [...] on file Legal Sex Female 6:21 PM CONFLICTS ANALYST Gender Identity Not on file Sexual Orientation [...] to complete this topic Insurance [facility] MEDICARE ADV SELF PAY NO INSURANCE Member Subscriber Plan / Payer (Ef fective for All Dates) Name:Emma Guerra Member ID:Not on file Relation to Subscriber:Not on file Name:EMMA GUERRA Subscriber ID:Not on file Address: [address] [place] [address] Payer ID:Not on file Group ID:Not on file Type:Self Pay Address: [place], [place] UHC MANAGED MEDICARE ADV SELF PAY NO INSURANCE Member Subscriber Plan / Payer (Ef fective for All Dates) Name:Emma Guerra Member ID:Not on file Relation to Subscriber:Not on file Name:EMMA GUERRA Subscriber ID:Not on file Address: [address] [place] [address] Payer ID:Not on file Group ID:Not on file Type:Self Pay Address: [place], [place] UHC MANAGED MEDICARE ADV Member Subscriber Plan / Payer (Ef fective 2024-Present) Name:Emma Guerra Relation to Subscriber:Self Name:Emma Guerra Payer ID:[id number] (NAIC) Type:Medicare-Managed Care Address: [address] [place] [phone] SELF PAY NO INSURANCE Member Subscriber Plan / Payer (Ef fective for All Dates) Name:Emma Guerra Member ID:Not on file Relation to Subscriber:Not on file Name:EMMA GUERRA Subscriber ID:Not on file Address: [address] [place] [address] [place] [address] Payer ID:Not on file Group ID:Not on file Type:Self Pay Address: [place], [place] UHC MANAGED MEDICARE ADV Care Teams Television Reporter Relationship Specialty Start Date End Date Marco Granados MD [address] [facility] [place] [phone] PCP - General Internal Medicine 11/23/17
--- OUTSIDE RECORDS SUMMARY | 2025-08-19 10:56 | XMS_ITS | Clinical Summary ---
Author Organization [facility] Address [address], [facility] [address] [place] [address] Phone Care Team Providers Care Diesel Powerplant Mechanic Helper Name Role Phone Everett Arriaga MD Unavailable [phone] Jacey Handley MD Primary Care Provider [phone] Allergies Active Allergy Reactions Criticality Noted Date [...] Lnp-s, Pf, 3 0 Mcg/0.3 Ml Dose (Youneeq) 01/15/2021,12/25/2020 Hepatitis A Vaccine 06/25/2019,03/19/2018 Hepatitis A, [...] CDT Lab [facility] [address] [address] Lab, Cc [facility] 03/06/2026 11:00 AM CDT Ancillary Procedure [facility] [address] [address] Elizabeth De Jesus, MANUFACTURING RECRUITER, EXPORT SALES MANAGER [address] [place] [address], [address] [place], [place] [id number] 03/06/2026 11:30 AM CDT Office Visit [facility] [address] [address] Everett Arriaga MD [address] [place] [address] Health Maintenance Due Date Last Done Comments Hepatitis C Virus (HCV) Screening 1940 Medicare Initial AWV [id number] 02/18/2006 Discussion re Stopping Mammograms 02/20/2015 Influenza Immunization [...] Procedure Name Priority Date/Time Associated Diagnosis Comments [facility] BONE DENSITOMETRY AXIAL SKELETON Routine 11/23/2023 9:58 AM CUSTOMER ACCOUNT SPECIALIST Encounter for monitoring aromatase inhibitor therapy from Last 3 Months or Most Recently Relevant to Health Maintenance Results * [facility]ONE DENSITOMETRY AXIAL SKELETON (11/23/2023 9:58 AM CUSTOMER ACCOUNT SPECIALIST) Anatomical Region Laterality Modality BODY N/A Other Narrative 11/23/2023 11:24 AM CUSTOMER ACCOUNT SPECIALIST EXAMINATION: [facility]ONE DENSITOMETRY AXIAL SKELETON INDICATIONS: Encounter for [...] Signature: 11/23/2023 11:24:30 us Emma Martínez APRN, EXPORT SALES MANAGER IMG DEXA ORDERABL ES Final Result from Last 3 Months or Most Recently Relevant to Health Maintenance Insurance [facility] Subscriber Plan / Payer (Ef fective 2023-Present) Name:Vanda Blancas Relation to Subscriber:Self Name:Vanda Blancas Payer ID:[id number] (NAIC) Type:HMO Address: [place] [phone] Care Teams Diesel Powerplant Mechanic Helper Relationship Specialty Start Date End Date Jacey Handley MD [facility] [place] [address] PCP - General Internal Medicine 08/18/22 Everett Arriaga MD [address] [place] [phone] Consulting Physician Oncology 10/20/20
[2025-08-19 11:04] LABS: MALB Creatinine Ratio < 30.3 mg/g (0-30)
[2025-08-19 13:18] LABS: Anion Gap 4 mmol/L (4-12); Blood Urea Nitrogen 14 mg/dL (7-17); Calcium 9.3 mg/dL (8.4-10.2); Carbon Dioxide 31 mmol/L (22-30); Chloride 92 mmol/L (98-107); Estimated Glomerular Filt Rate > 60; Glucose 58 mg/dL (65-110); Potassium 4.2 mmol/L (3.4-5.0); Sodium 127 mmol/L (137-145)
== END 2025-08-19 10:11 | disposition home or self-care (01) ==
LOC: ANHLAB 10:11
PROVIDERS: PCP Family Medicine; Referring Provider Internal Medicine Nephrology; Visit Provider Family Medicine
DX: I10 Essential (primary) hypertension (principal)
CPT/HCPCS: 36415; 80048; 82043

== ENCOUNTER 2025-11-04 14:27 | Outpatient (CLI) | payer MEDICARE, SELFPAY ==
[2025-11-04 15:22] LABS: Anion Gap 4 mmol/L (4-12); Blood Urea Nitrogen 15 mg/dL (7-17); Calcium 9.4 mg/dL (8.4-10.2); Carbon Dioxide 30 mmol/L (22-30); Chloride 96 mmol/L (98-107); Estimated Glomerular Filt Rate > 60; Glucose 91 mg/dL (65-110); Potassium 4.3 mmol/L (3.4-5.0); Sodium 130 mmol/L (137-145)
--- OUTSIDE RECORDS SUMMARY | 2025-11-04 16:57 | XMS_ITS | Encounter Summary ---
Author Organization [facility] Care Team Providers Care Auto Body Painter Name Role Phone Delia Harry MD Primary Care Provider [phone] Ysabel Winters MD Primary Care Provider [phone] Jacey Handley MD Primary Care Provider [phone] Elijah Palumbo MD Unavailable [phone] Truman Dillon MD Unavailable [phone] Davin Madsen MD Unavailable [phone] Encounter Details Date Type Department Care Team (Latest Contact Info) Description 09/24/2018 Orders Only [facility] CLINCONV Provider, MD Robert [address] [place] [address] Social History Tobacco Use Types Packs/Day Years Used Date Smoking Tobacco: Never Alcohol Use Standard Drinks/Week Comments Yes 0 (1 standard drink = 0.6 oz pur e alcohol) Comments Unknown Sex and Gender Information Value Date Recorded Sex Assigned at Not on file Legal Sex Female 1:15 AM PICKLING SOLUTION MAKER Gender Identity Female 10/30/2020 9:29 PM PICKLING SOLUTION MAKER Sexual Orientation Straight 10/30/2020 9: 29 PM PICKLING SOLUTION MAKER documented as of this encounter Plan of Treatment Not on file documented as of this encounter Procedures Procedure Name Priority Date/Time Associated Diagnosis Comments PROCEDURE - RESULT 09/24/2018 12 :00 AM PICKLING SOLUTION MAKER documented in this encounter Results * PROCEDURE - RESULT (09/24/2018 12:00 AM PICKLING SOLUTION MAKER) Narrative 09/24/2018 12:00 AM PICKLING SOLUTION MAKER Ordered by an unspecified provider. us Historical Provider Final Res ult documented in this encounter Visit Diagnoses Not on filedocumented in this encounter Care Teams Auto Body Painter Relationship Specialty Start Date End Date Delia Harry MD [address] [facility] [address] [place] [address] PCP - General 01/18/19 12/06/20 Ysabel Winters MD [address] [address] PCP - General 12/07/20 12/07/22 Jacey Handley MD [address] [facility] [address] [place] [address] PCP - General Internal Medicine 12/08/22 Elijah Palumbo MD [address] [place] [address] Referring Physician Gastroenterology 07/11/24 Truman Dillon MD [phone] [place] [address] Surgeon Colon and Rectal Surgery 07/23/24 Davin Madsen MD [address] [facility] [address] [place] [address] Gastroenterology 07/23/24 documented as of this encounter
--- OUTSIDE RECORDS SUMMARY | 2025-11-04 16:57 | XMS_ITS | Encounter Summary ---
Author Organization [facility] Address [address] [place] [address] Phone Care Team Providers Care Mat Worker Name Role Phone Delia Harry MD Primary Care Provider [phone] Ysabel Winters MD Primary Care Provider [phone] Jacey Handley MD Primary Care Provider [phone] Elijah Palumbo MD Unavailable [phone] Truman Dillon MD Unavailable [phone] Davin Madsen MD Unavailable [phone] Encounter Details Date Type Department Care Team [...] on file Legal Sex Female 1:15 AM OFFICE SUPPORT ASSOCIATE Gender Identity Female 10/30/2020 9:29 PM OFFICE SUPPORT ASSOCIATE Sexual Orientation Straight 10/30/2020 9: 29 PM OFFICE SUPPORT ASSOCIATE documented as of this encounter Plan of Treatment Not on file documented as of this encounter Procedures Procedure Name Priority Date/Time Associated Diagnosis Comments SCAN - RADIOLOGY/IMAGING 10/28/2020 documented in this encounter Results * SCAN - RADIOLOGY/IMAGING (10/28/2020) Anatomical Region Laterality Modality Other us Provider Scanning Final Result documented in this encounter Visit Diagnoses Not on filedocumented in this encounter Care Teams Mat Worker Relationship Specialty Start Date End Date Delia Harry MD [address] [facility] [address] [place] [address] PCP - General 01/18/19 12/06/20 Ysabel Winters MD [address] [facility] [address] [place] [address] PCP - General 12/07/20 12/07/22 Jacey Handley MD [address] [address] PCP - General Internal Medicine 12/08/22 Elijah Palumbo MD [address] [place] [address] Referring Physician Gastroenterology 07/11/24 Truman Dillon MD [phone] [place] [address] Surgeon Colon and Rectal Surgery 07/23/24 Davin Madsen MD [address] [facility] [address] [place] [address] Corporate Law Specialist Gastroenterology 07/23/24 documented as of this encounter
--- OUTSIDE RECORDS SUMMARY | 2025-11-04 16:57 | XMS_ITS | Clinical Summary ---
Author Organization [facility] Address [address] [place] [address] Care Team Providers Care Window Framer Name Role Phone Marco Granados MD Primary Care Provider Source Comments [facility],non-owned Affiliates and Associated Physician Practices is amultiple site organization consisting of ambulatory clinics and hospital sitesin [place], [place], [place] and [place]. This disclosure is being madepursuant to the Care Everywhere program and may not contain all information available regarding this patient. Last updated 18.[facility] Active Problems Problem Noted Date Diagnosed Date [...] on file Legal Sex Female 6:21 PM HAND ZIPPER TRIMMER Gender Identity Not on file Sexual Orientation [...] MEDICARE AWV CALENDAR YEAR 2024 COVID-19 VACCINE (2024-2 6 season) 2025 INFLUENZA VACCINE (#1) 2025 HEPATITIS [...] to complete this topic Insurance [facility] MEDICARE ADV SELF PAY NO INSURANCE Member Subscriber Plan / Payer (Ef fective for All Dates) Name:Emma Guerra Member ID:Not on file Relation to Subscriber:Not on file Name:EMMA GUERRA Subscriber ID:Not on file Address: [address] [place] [address] Payer ID:Not on file Group ID:Not on file Type:Self Pay Address: [place], [place] UHC MANA[place]ED MEDICARE ADV SELF PAY NO INSURANCE Member Subscriber Plan / Payer (Ef fective for All Dates) Name:Emma Guerra Member ID:Not on file Relation to Subscriber:Not on file Name:EMMA GUERRA Subscriber ID:Not on file Address: [address] [place] [address] Payer ID:Not on file Group ID:Not on file Type:Self Pay Address: [place]HC [place]NA[place]ED MEDICARE ADV Member Subscriber Plan / Payer (Ef fective 2024-Present) Name:Emma Guerra Relation to Subscriber:Self Name:Emma Guerra Payer ID:[id number] (NAIC) Type:Medicare-Managed Care Address: [address] [place] [phone] SELF PAY NO INSURANCE Member Subscriber Plan / Payer (Ef fective for All Dates) Name:Emma Guerra Member ID:Not on file Relation to Subscriber:Not on file Name:EMMA GUERRA Subscriber ID:Not on file Address: [address] [place] [address] [place] [address] Payer ID:Not on file Group ID:Not on file Type:Self Pay Address: [place]HC [place]NA[place]ED MEDICARE ADV Care Teams Window Framer Relationship Specialty Start Date End Date Marco Granados MD [address] [facility] [place] [phone] PCP - General Internal Medicine 11/23/17
--- OUTSIDE RECORDS SUMMARY | 2025-11-04 16:57 | XMS_ITS | Clinical Summary ---
Author Organization [facility] Address [address] [place] [address] Phone Care Team Providers Care Social Media Intern Name Role Phone Jacey Handley MD Primary Care Provider [phone] Allergies No known active allergies Medications acetaminophen [...] Comments Blood Pressure 128/70 11/09/2022 8:47 AM SNUBBER Pulse 72 11/09/2022 8:47 AM SNUBBER Temperature 35.3 C (95.5 F) 11/09/2022 8:47 AM SNUBBER Respiratory Rate - - Oxygen Saturation - - Inhaled Oxygen Concentration - - Weight 50.3 kg (111 lb) 11/09/2022 8:47 AM SNUBBER Height 165.1 cm (5' 5) 11/09/2022 8:47 AM SNUBBER Body Mass Index 18.47 11/09/2022 8:47 AM SNUBBER Plan of Treatment Health Maintenance Due Date Last Done Comments COVID-19 Vaccine ( season) 2025 09/01/2021, 01/15/2021, 12/25/2020 Influenza Vaccine (#1) 2025 09/03/2022 Pneumococcal PPSV23/PCV13 65 + Years / Low and Medium Risk Completed 09/03/2019, 11/29/2016 Insurance [employer] MEDICARE Care Teams Social Media Intern Relationship Specialty Start Date End Date Jacey Handley MD [address] [place] [address] PCP - General Internal Medicine 10/10/22
--- OUTSIDE RECORDS SUMMARY | 2025-11-04 16:57 | XMS_ITS | Clinical Summary ---
Author Organization [facility] Address [address] [place] [address] Care Team Providers Care High School Biology Teacher Name Role Phone Jacey Handley MD Primary Care Provider [phone] Elijah Palumbo MD Unavailable [phone] Truman Dillon MD Unavailable Davin Madsen MD Unavailable [phone] Allergies Active Allergy Reactions Criticality Noted [...] (KENALOG) 0.1 % cream 1 Active zoledronic npse-ybvkwzqJ-s ater (RECLAST) 5 mg/100 mL piggyback 2 [...] (07/16/2019): Added automatically from request for surgery [id number] 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 Stiffness of shoulder [...] on file Legal Sex Female 1:15 AM ASSOCIATE PROFESSOR OF RADIOLOGY Gender Identity Female 10/30/2020 9:29 PM ASSOCIATE PROFESSOR OF RADIOLOGY Sexual Orientation Straight 10/30/2020 9: 29 PM ASSOCIATE PROFESSOR OF RADIOLOGY Last Filed Vital Signs Vital Sign Reading [...] Visit 65+ 02/20/2005 Covid-19 Vaccine (4 - 2024-2 6 season) 2025 09/01/2021, 01/15/2021, [...] history exists Medical Devices Implanted Type Area Campus Interviews Intern Device Identifier Shelf Expiration Date Model / Serial / Lot Shoulder Replacement Right: Shoulder Procedures Procedure Name Priority Date/Time Associated Diagnosis Comments DEXA TBS AXIAL SKELETON BONE DENSITY 1 OR MORE SITES Schedule Routine, Read Routine (OP Routine) 01/01/2024 12:40 PM ASSOCIATE PROFESSOR OF RADIOLOGY Osteoporosis, unspecified osteoporosis type, unspecified pathological fracture presence from Last 3 Months or Most Recently Relevant to Health Maintenance Results * Dexa TBS Axial Skeleton Bone Density 1 or more sites (01/01/2024 12:40 PM ASSOCIATE PROFESSOR OF RADIOLOGY) Anatomical Region Laterality Modality Wrist, Body N/A Radiographic Daksha ging Narrative 01/03/2024 11:35 AM ASSOCIATE PROFESSOR OF RADIOLOGY Patient Name: Rey Blancas Date of : 1940 Date of scan: 01/01/2024 Bone mineral density was performed on a [employer] Discovery Densitometer. Based on machine cross-calibration and [...] by the International Society of Clinical Densitometry. [id number] Ayo Julien MD IMG DXA PROCEDURES Final Result from Last 3 Months or Most Recently Relevant to Health Maintenance Insurance [facility] MEDICARE ADVANTAGE [facility] MEDICARE ADVANTAGE [facility] MEDICARE ADVANTAGE Advance Directives For more information, please contact: [phone] Documents on File Type Date Recorded Patient Heddler Tier Expl anation ADVANCE DIRECTIVE 10/02/2018 12:00 AM [facility] [place] OPERATOR FOR PLASTIC FINANCIAL/MEDICAL * Full Code (Latest Code Status on File) Date Activated Date Inactivated Comments 07/19/2019 10:55 AM 07/19/2019 6:45 PM Care Teams High School Biology Teacher Relationship Specialty Start Date End Date Jacey Handley MD PCP - General Internal Medicine 12/08/22 Elijah Palumbo MD [address] [place] [address] Referring Physician Gastroenterology 07/11/24 Truman Dillon MD [phone] [place] [address] Surgeon Colon and Rectal Surgery 07/23/24 Davin Madsen MD [address] [facility] [address] [place] [address] It Systems Manager Gastroenterology 07/23/24
--- OUTSIDE RECORDS SUMMARY | 2025-11-04 16:57 | XMS_ITS | Encounter Summary ---
Author Organization [facility] Address [address] [place] [address] Phone Care Team Providers Care Blanchard Grinder Operator Name Role Phone Delia Harry MD Primary Care Provider [phone] Ysabel Winters MD Primary Care Provider [phone] Jacey Handley MD Primary Care Provider [phone] Elijah Palumbo MD Unavailable [phone] Truman Dillon MD Unavailable [phone] Davin Madsen MD Unavailable [phone] Reason for Visit * Reason Onset Date Comments Zoom invite 09/22/2020 1:44pm YR spoke with Ms. Blancas and set her up for testing 10/01/2020 10:00am Encounter Details Date Type Department Care Team (Late st Contact Info) Description 09/22/2020 Documentation [facility] [address] [place] [address] [address] Floor [address] [place] [phone] Ewelina Fung CNA Zoom invite (1:44pm YR [...] on file Legal Sex Female 1:15 AM PUBLIC SPACE ATTENDANT Gender Identity Female 10/30/2020 9:29 PM PUBLIC SPACE ATTENDANT Sexual Orientation Straight 10/30/2020 9: 29 PM PUBLIC SPACE ATTENDANT documented as of this encounter Plan of Treatment Not on file documented as of this encounter Visit Diagnoses Not on filedocumented in this encounter Care Teams Blanchard Grinder Operator Relationship Specialty Start Date End Date Delia Harry MD [address] [address] PCP - General 01/18/19 12/06/20 Ysabel Winters MD [address] [address] PCP - General 12/07/20 12/07/22 Jacey Handley MD [address] [address] PCP - General Internal Medicine 12/08/22 Elijah Palumbo MD [address] [place] [address] Referring Physician Gastroenterology 07/11/24 Truman Dillon MD [phone] [place] [address] Surgeon Colon and Rectal Surgery 07/23/24 Davin Madsen MD [address] [facility] [address] [place] [address] Destination Specialist Gastroenterology 07/23/24 documented as of this encounter
--- OUTSIDE RECORDS SUMMARY | 2025-11-04 16:57 | XMS_ITS | Clinical Summary ---
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/2025 Chronic right shoulder pain [...] 12/02/2019 Generalized abdominal pain 12/02/2019 Pancreatic cyst 12/02/2019 Malignant neoplasm of lower- outer quadrant of unspecified female breast 11/01/2019 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, estrogen receptor positive 11/01/2019 Osteoporosis 11/01/2019 Infiltrating ductal carcinoma of breast 08/12/20 19 Breast lump 08/08/2019 Overview (05/12/2025): right Abnormal CT of the abdomen 07/16/2019 Overview (05/12/2025): Added automatically from request for surgery [id number] 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 08/21/2018 Generalized osteoarthritis 08/21/2018 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 Arthritis 04/25/2017 Overview (05/12/2025): Bilateral hands Hyperlipidemia 01/19/2017 Cerebrovascular accident (CVA) 11/28/2016 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 Stiffness of shoulder joint 11/29/2011 Arthralgia of shoulder 11/24/2011 Unspecified contact dermatitis due to other agen ts 10/28/2011 Family History Medical History Relation Comments Breast Cancer Sister Relation Status Comments Sister Social History Tobacco Use Types Packs/Day Years Used Date Smoking Tobacco: Never Smokeless Tobacco: Never Tobacco Cessation:Counseling Given: No Comments No Sex and Gender Information Value Date Recorded Sex Assigned at Female 01/06/2025 3:13 PM NAPKIN BAND WRAPPER Legal Sex Female 7:41 PM CDT Gender [...] st Contact Info) Description 11/17/2025 9:00 AM NAPKIN BAND WRAPPER Office Visit [facility] - [address], [address] [place] [address] Gina Lazcano MD [address] [place] [address] Health Maintenance Due Date Last Done Comments Annual Medicare Wellness Visit 02/20/2005 PHQ-2 (Physician Gilbert) 11/20/2024 COVID-19 Vaccine ( season) 2025 09/01/2021, 01/15/2021, 12/25/2020 Influenza Adult (#1) 2025 09/03/2022, 11/18/2021, 09/23/2020, Additional history exists DTaP, Tdap and Td Vaccines (3 - Td or Tdap) 11/09/2025 11/09/2015, 05/06/2003, 06/01/1998 Hepatitis A Vaccines Aged Out 06/25/2019, 03/19/20 18 No longer eligible based on patient's age to complete this topic Pneumococcal Vaccine: 50+ Years Completed 09/03/2019, 11/29/2016 Zoster Vaccines Completed 10/26/2020, 1201/2020, 10/16/2020, Additional history exists RSV Immunization or 60+ Years Completed 11/29/2023 Meningococcal B Vaccine Aged Out No l onger eligible based on patient's age to complete this topic Meningococcal Vaccine Aged Out No silvia sánchez eligible based on patient's age to complete this topic RSV Immunizations Under 20 Months Aged Out No longer eligible based on patient's age to complete this topic Insurance [facility] MEDICARE Care Teams Recording Studio Set Up Worker Relationship Specialty Start Date End Date Kian Pitt DO [address] [place] [address] PCP - General FAMILY PRACTICE 05/12/25 Gen Kirk MD [employer] Quality Assurance Specialist INTERVENTIONAL CARDIOLOGY 08/28/19 Miguel Angel Tamayo MD [address] [place] [address] Referring Physician GENERAL SURGERY 08/20/19
--- OUTSIDE RECORDS SUMMARY | 2025-11-04 16:57 | XMS_ITS | Encounter Summary ---
Author Organization [facility] Address [address] [place] [address] Phone Care Team Providers Care Thread Winder Automatic Name Role Phone Delia Harry MD Primary Care Provider [phone] Everett Arriaga MD Unavailable [phone] Jacey Handley MD Primary Care Provider [phone] Reason for Visit * Reason Comments Medication Refill Encounter Details Date Type Department Care Team (Late st Contact Info) Description 10/21/2021 Refill [facility] [address] [phone] Everett Arriaga MD [address] [place] [address] Medication Refill Social History Tobacco Use [...] Everett Arriaga MD - 10/22/2021 10:42 AM SENIOR SAFETY SUPPORT MANAGER Ok to fill OR SAFETY SUPPORT MANAGER * Telephone Encounter - Ruperto Olivarez RN - 10/22/2021 10:27 AM CST Refill request from pharmacy. Refill if appropriate. OR SAFETY SUPPORT MANAGER documented in this encounter Plan of Treatment Upcoming Encounters Date Type Department Care Team (Late st Contact Info) Description 03/06/2026 10:45 AM CDT Lab [facility] [address] [phone] Lab, [facility] 03/06/2026 11:00 AM CDT Ancillary Procedure [facility] [address] [phone] Elizabeth De Jesus APRN, SLURRY CONTROL TENDER [address] [place] [address] [address] [place] [address] 03/06/2026 11:30 AM CDT Office Visit [facility] [address] [phone] Everett Arriaga MD [address] [place] [phone] documented as of this encounter Visit Diagnoses Diagnosis 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, estrogen receptor positive Other osteoporosis, unspecified pathological fracture presence documented in this encounter Additional Health Concerns Assessment Noted Time PHQ-9 Depression Total Score: 1 01/13/20 21 3:49 PM SENIOR SAFETY SUPPORT MANAGER documented as of this encounter Care Teams Thread Winder Automatic Relationship Specialty Start Date End Date Delia Harry MD [address] [address] PCP - General Family Medicine 08/13/19 08/16/22 Jacey Handley MD [address] [facility] [place] [address] PCP - General Internal Medicine 08/18/22 Everett Arriaga MD [address] [place] [address] Consulting Physician Oncology 10/20/20 documented as of this encounter
--- OUTSIDE RECORDS SUMMARY | 2025-11-04 16:57 | XMS_ITS | Clinical Summary ---
Author Organization [facility] Address [address], [facility] [address] [place] [address] Phone Care Team Providers Care Roller Staker Name Role Phone Everett Arriaga MD Unavailable [phone] Jacey Handley MD Primary Care Provider [phone] Allergies Active Allergy Reactions Criticality Noted Date [...] Lnp-s, Pf, 3 0 Mcg/0.3 Ml Dose (Mashwork) 01/15/2021,12/25/2020 Hepatitis A Vaccine 06/25/2019,03/19/2018 Hepatitis A, [...] AM CDT Lab [facility] [address] [phone] Lab, [facility] 03/06/2026 11:00 AM CDT Ancillary Procedure [facility] [address] [phone] Elizabeth De Jesus, ADMINISTRATOR, PROGRAM ANALYST [address] [place] [address], [address] [place] [address] 03/06/2026 11:30 AM CDT Office Visit [facility] [address] [phone] Everett Arriaga MD [address] [place] [phone] Health Maintenance Due Date Last Done [...] 11/29/2016 Pneumococcal Immunization Combined Discontinued 09/03/2019, 11/29/2016 Varicella Immunization Discontinued 08/15/2020 Zoster Immunization Completed 10/26/2020, 10/22/2020, 10/16/2020, Additional history exists Respiratory Syncytial Virus (RSV) Immunization (Adult) Completed 11/29/2023 Human Papillomavirus (HPV) Immunization (No Doses Required) Completed Meningococcal Immunization (ACWY) Aged Out No longer eligible based on patient's age to complete this topic Rotavirus Immunization Aged Out No lo nger eligible based on patient's age to complete this topic Procedures Procedure Name Priority Date/Time Associated Diagnosis Comments [facility] BONE DENSITOMETRY AXIAL SKELETON Routine 11/23/2023 9:58 AM HOSPICE BEREAVEMENT COORDINATOR Encounter for monitoring aromatase inhibitor therapy from Last 3 Months or Most Recently Relevant to Health Maintenance Results * [facility] BONE DENSITOMETRY AXIAL SKELETON (11/23/2023 9:58 AM HOSPICE BEREAVEMENT COORDINATOR) Anatomical Region Laterality Modality BODY N/A Other Narrative 11/23/2023 11:24 AM HOSPICE BEREAVEMENT COORDINATOR EXAMINATION: [facility] BONE DENSITOMETRY AXIAL SKELETON INDICATIONS: Encounter [...] Signature: 11/23/2023 11:24:30 us Emma Martínez APRN, PROGRAM ANALYST IMG DEXA ORDERABL ES Final Result from Last 3 Months or Most Recently Relevant to Health Maintenance Insurance [facility]IC[facility] Member Subscriber Plan / Payer (Ef fective 2023-Present) Name:Vanda Blancas Relation to Subscriber:Self Name:Vanda Blancas Payer ID:[id number] (NAIC) Type:HMO Address: [place] [phone] Care Teams Roller Staker Relationship Specialty Start Date End Date Jacey Handley MD [address] [facility] [place] [address] PCP - General Internal Medicine 08/18/22 Everett Arriaga MD [address] [place] [phone] Consulting Physician Oncology 10/20/20
--- OUTSIDE RECORDS SUMMARY | 2025-11-04 16:57 | XMS_ITS | Encounter Summary ---
Author Organization [facility] Care Team Providers Care Live Games Dealer Name Role Phone Delia Harry MD Primary Care Provider [phone] Ysabel Winters MD Primary Care Provider [phone] Jacey Handley MD Primary Care Provider [phone] Elijah Palumbo MD Unavailable [phone] Truman Dillon MD Unavailable [phone] Davin Madsen MD Unavailable [phone] Encounter Details Date Type Department Care Team (Latest Contact Info) Description 10/17/2018 Orders Only [facility] Provider, MD Robert [address] [place] [address] Social History Tobacco Use Types Packs/Day Years Used Date Smoking Tobacco: Never Alcohol Use Standard Drinks/Week Comments Yes 0 (1 standard drink = 0.6 oz pur e alcohol) Comments Unknown Sex and Gender Information Value Date Recorded Sex Assigned at Not on file Legal Sex Female 1:15 AM TRANSIT BUS OPERATOR Gender Identity Female 10/30/2020 9:29 PM TRANSIT BUS OPERATOR Sexual Orientation Straight 10/30/2020 9: 29 PM TRANSIT BUS OPERATOR documented as of this encounter Plan of Treatment Not on file documented as of this encounter Procedures Procedure Name Priority Date/Time Associated Diagnosis Comments PROCEDURE - RESULT 10/17/2018 12 :00 AM TRANSIT BUS OPERATOR documented in this encounter Results * PROCEDURE - RESULT (10/17/2018 12:00 AM TRANSIT BUS OPERATOR) Narrative 10/17/2018 12:00 AM TRANSIT BUS OPERATOR Ordered by an unspecified provider. us Historical Provider Final Res ult documented in this encounter Visit Diagnoses Not on filedocumented in this encounter Care Teams Live Games Dealer Relationship Specialty Start Date End Date Delia Harry MD [address] [facility] [address] [place] [address] PCP - General 01/18/19 12/06/20 Ysabel Winters MD [address] [address] PCP - General 12/07/20 12/07/22 Jacey Handley MD [address] [facility] [address] [place] [address] PCP - General Internal Medicine 12/08/22 Elijah Palumbo MD [address] [place] [address] Referring Physician Gastroenterology 07/11/24 Truman Dillon MD [phone] [place] [address] Surgeon Colon and Rectal Surgery 07/23/24 Davin Madsen MD [address] [facility] [address] [place] [address] Account Processor Gastroenterology 07/23/24 documented as of this encounter
--- OUTSIDE RECORDS SUMMARY | 2025-11-04 16:57 | XMS_ITS | Encounter Summary ---
Author Organization [facility] Address [address] [place] [address] Phone Care Team Providers Care Rug Sample Beveler Name Role Phone Delia Harry MD Primary Care Provider [phone] Everett Arriaga MD Unavailable [phone] Jacey Handley MD Primary Care Provider [phone] Reason for Visit * Reason Comments Medication Refill Encounter Details Date Type Department Care Team (Late st Contact Info) Description 07/17/2022 Refill [facility] [address] [place] [address] Everett Arriaga MD [address] [place] [phone] Medication Refill Social History Tobacco Use [...] * Telephone Encounter - Emma Thacker, KELSEY, DATA COLLECTION TECHNICIAN - 07/18/2022 10:20 AM CDT Okay to refill. * Telephone Encounter - Christiana Sheppard RN - 07/18/2022 8:03 AM CDT Refill request from pharmacy Last filled 10/22/2021 #[id number] R-2 Please fill if appropriate documented in this encounter Plan of Treatment Upcoming Encounters Date Type Department Care Team (Late st Contact Info) Description 03/06/2026 10:45 AM CDT Lab [facility] [address] [phone] Lab, [facility] 03/06/2026 11:00 AM CDT Ancillary Procedure [facility] [address] [phone] Elizabeth De Jesus APRN, DATA COLLECTION TECHNICIAN [address] [place] [address] [address] [place] [address] 03/06/2026 11:30 AM CDT Office Visit [facility] [address] [phone] Everett Arriaga MD [address] [place] [phone] documented as of this encounter Visit Diagnoses Diagnosis 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, estrogen receptor positive Other osteoporosis, unspecified pathological fracture presence documented in this encounter Additional Health Concerns Assessment Noted Time PHQ-9 Depression Total Score: 1 01/13/20 21 3:49 PM CHARGING MACHINE OPERATOR documented as of this encounter Care Teams Rug Sample Beveler Relationship Specialty Start Date End Date Delia Harry MD [address] [address] PCP - General Family Medicine 08/13/19 08/16/22 Jacey Handley MD [address] [place] [address] PCP - General Internal Medicine 08/18/22 Everett Arriaga MD [address] [place] [phone] Consulting Physician Oncology 10/20/20 documented as of this encounter
--- OUTSIDE RECORDS SUMMARY | 2025-11-04 16:57 | XMS_ITS | Encounter Summary ---
Author Organization [facility] Address [address] [place] [address] Phone Care Team Providers Care Physical Laboratory Assistant Name Role Phone Delia Harry MD Primary Care Provider [phone] Ysabel Wintres MD Primary Care Provider [phone] Jacey Handley MD Primary Care Provider [phone] Elijah Palumbo MD Unavailable [phone] Truman Dillon MD Unavailable [phone] Davin Madsen MD Unavailable [phone] Encounter Details Date Type Department Care Team (Late st Contact Info) Description 10/24/2019 Orders Only [facility] Gastroenterology [address] [facility] Office Building [address] [place] [phone] Lolis Mcallister MD [address] [place] [address] [address] [place] [address] Social History Tobacco Use Types Packs/Day Years Used Date Smoking Tobacco: Never Smokeless Tobacco: Never Alcohol Use Standard Drinks/Week Comments Yes 2 (1 standard drink = 0.6 oz pur e alcohol) Comments No Sex and Gender Information Value Date Recorded Sex Assigned at Not on file Legal Sex Female 1:15 AM CUSTODIAN ATHLETIC EQUIPMENT Gender Identity Female 10/30/2020 9:29 PM CUSTODIAN ATHLETIC EQUIPMENT Sexual Orientation Straight 10/30/2020 9: 29 PM CUSTODIAN ATHLETIC EQUIPMENT documented as of this encounter Plan of Treatment Not on file documented as of this encounter Visit Diagnoses Not on filedocumented in this encounter Care Teams Physical Laboratory Assistant Relationship Specialty Start Date End Date Delia Harry MD [address] [facility] [address] [place] [address] PCP - General 01/18/19 12/06/20 Ysabel Wniters MD [address] [facility] [address] [place] [address] PCP - General 12/07/20 12/07/22 Jacey Handley MD [address] [facility] [address] [place] [address] PCP - General Internal Medicine 12/08/22 Elijah Palumbo MD [address] [place] [address] Referring Physician Gastroenterology 07/11/24 Truman Dillon MD [phone] [place] [address] Surgeon Colon and Rectal Surgery 07/23/24 Davin Madsen MD [address] [facility] [address] [place] [address] Converting Technician Gastroenterology 07/23/24 documented as of this encounter
== END 2025-11-04 14:28 | disposition home or self-care (01) ==
PROVIDERS: PCP Family Medicine; Visit Provider Family Medicine
DX: E87.1 Hypo-osmolality and hyponatremia (principal)
CPT/HCPCS: 36415; 80048